=== PATIENT | female | born 1955 | race Caucasian/White ===

== ENCOUNTER 2023-04-10 12:06 | Outpatient (OUT) | payer OTHER, SELFPAY ==
[2023-04-10 12:54] LABS: Basophils Percent Auto 0.4 % (0.2-2.0); Eosinophils Absolute Auto 0.1 10^3/uL (0.0-0.7); Eosinophils Percent Auto 1.3 % (0.9-7.0); Hematocrit 42.3 % (36.0-48.0); Hemoglobin 13.9 g/dL (12.0-16.0); Immature Granulocytes Abs Auto 0.04 10^3/uL (0.00-0.03); Immature Granulocytes Pct Auto 0.4 % (0.0-0.5); Lymphocytes Absolute Auto 1.8 10^3/uL (1.2-3.8); Lymphocytes Percent Auto 19.5 % (20.5-60.0); Mean Corpuscular HGB Conc 32.9 g/dL (29.9-35.2); Mean Corpuscular Hemoglobin 27.7 pg (26.7-34.0); Mean Corpuscular Volume 84.3 fL (81.0-99.0); Mean Platelet Volume 8.5 fL (9.5-13.5); Monocytes Absolute Auto 0.5 10^3/uL (0.3-0.8); Monocytes Percent Auto 5.2 % (1.7-12.0); Neutrophils Absolute Auto 6.7 10^3/uL (1.4-6.5); Neutrophils Percent Auto 73.2 % (43.0-75.0); Platelet Count 353 10^3/uL (150-450); Red Blood Count 5.02 10^6/uL (4.20-5.40); Red Cell Distribution Width 14.6 % (11.0-15.0); White Blood Count 9.2 10^3/uL (4.0-11.0)
[2023-04-10 14:08] LABS: Alanine Aminotransferase 32 U/L (14-59); Albumin Globulin Ratio 0.8; Alkaline Phosphatase 193 U/L (46-116); Aspartate Amino Transferase 27 U/L (15-37); BUN Creatinine Ratio 23.9; Bilirubin Total 0.5 mg/dL (0.2-1.0); Calcium 9.7 mg/dL (8.5-10.1); Carbon Dioxide 29.7 mmol/L (21.0-32.0); Chloride 100 mmol/L (98-107); Chol HDL Ratio 2.5; Cholesterol 182 mg/dL (<=200); Estimated GFR (African America >60 (>=60); Estimated GFR (Non-African Ame >60 (>=60); Globulin 4.8 g/dL; Glucose 90 mg/dL (74-106); HDL Cholesterol 74 mg/dL (40-60); Potassium 3.7 mmol/L (3.5-5.1); Sodium 139 mmol/L (136-145); Thyroid Stimulating Hormone 0.423 uIU/mL (0.358-3.740); Total Protein 8.8 g/dL (6.4-8.2); Triglycerides 120 mg/dL (<=150)
== END 2023-04-10 12:07 | disposition home or self-care (01) ==
LOC: LAB 12:10
PROVIDERS: PCP Internal Medicine; Visit Provider Internal Medicine
DX: Z00.00 Encounter for general adult medical examination without abnormal findings (principal)
CPT/HCPCS: 36415; 80053; 80061; 82306; 84443; 85025

== ENCOUNTER 2023-08-21 11:12 | Outpatient (OUT) | payer OTHER, SELFPAY ==
--- NOTE | 2023-08-21 11:37 | XR_ITS ---
The [address] [address] Patient Name: ELBA CORONA MRN: [id number] date: 1955 Sex: F Assigned Patient Location: LAB Current Patient Location: Accession/Order Number: [id number] Exam Date: 08/21/2023 11:44 Report Date: 08/22/2023 19:15 At the request of: THELMA VIDAL Procedure: XR abdomen 1V Exam: Radiographs: XR abdomen 1V Reason for exam: Kidney Stone N20.0 Comparison: None XR/XR abdomen 1V IMPRESSION: Small calcific density projected over the region of the left renal upper pole may resent a calyceal renal stone versus cholelithiasis or ingested material. No radiographically evident ureteral or bladder calculi. No gas-filled dilated loops of small bowel or colon. No fecal impaction. Remainder unremarkable. Electronically authenticated by: YUDITH RIBEIRO Date: 08/22/2023 19:15
[2023-08-21 11:53] LABS: Anion Gap 14.1; Carbon Dioxide 26.4 mmol/L (21.0-32.0); Chloride 101 mmol/L (98-107); Potassium 3.5 mmol/L (3.5-5.1); Sodium 138 mmol/L (136-145)
== END 2023-08-21 11:13 | disposition home or self-care (01) ==
LOC: LAB 11:15
PROVIDERS: PCP Internal Medicine; Visit Provider Urology
DX: N20.0 Calculus of kidney (principal)
CPT/HCPCS: 36415; 74018; 80051

== ENCOUNTER 2023-09-05 12:05 | Outpatient (OUT) | payer OTHER, SELFPAY ==
--- NOTE | 2023-09-05 12:08 | US_ITS ---
The [address] [address] Patient Name: ELBA CORONA MRN: [id number] date: 1955 Sex: F Assigned Patient Location: US Current Patient Location: US Accession/Order Number: [id number] Exam Date: 09/05/2023 12:15 Report Date: 09/05/2023 13:38 At the request of: ELOINA DUMONT Procedure: US thyroid EXAM: US thyroid HISTORY: Thyroid Nodule COMPARISON: None. TECHNIQUE: Multiple sonographic images of the thyroid gland were obtained, supplemented with Doppler. FINDINGS: The right lobe measures 4.8 x 1.3 x 2.0 cm. Heterogeneous echoes are noted throughout. Very small cysts are scattered throughout. Along the inferior aspect there is a cyst measuring 0.4 x 0.5 x 0.3 cm. The left lobe measures 4.6 x 1.6 x 1.6 cm. Heterogeneous echoes are noted throughout. Very small cysts are noted. In the superior aspect there is a mixed nodule measuring 1.7 x 1.3 x 1.1 cm, with slightly irregular margins. In the inferior aspect there is a small cyst measuring 0.5 x 0.5 x 0.3 cm. The isthmus measures 2 mm in thickness. There is no evidence of a focal mass or abnormal fluid collection surrounding the gland. US/US thyroid IMPRESSION: The thyroid gland is not enlarged. Multiple very small cysts are scattered throughout each lobe. Additional identified cysts are seen in the inferior aspect of the right lobe and the inferior aspect of the left lobe, and these are considered TI RADS 2. The mixed nodule in the superior aspect of the left lobe is considered TI RAD 4. Biopsy is not recommended at this time. Direct comparison with a previous study may be helpful. A follow-up study in 12 months recommended. Electronically authenticated by: NEHEMIAS GUZMAN Date: 09/05/2023 13:38
== END 2023-09-05 12:06 | disposition home or self-care (01) ==
LOC: US 12:05
PROVIDERS: PCP Internal Medicine; Visit Provider Otolaryngology
DX: E04.1 Nontoxic single thyroid nodule (principal); E04.2 Nontoxic multinodular goiter
CPT/HCPCS: 76536

== ENCOUNTER 2023-09-19 14:40 | Outpatient (OUT) | payer OTHER, SELFPAY ==
--- NOTE | 2023-09-19 14:57 | XR_ITS ---
The [address] [address] Patient Name: ELBA CORONA MRN: [id number] date: 1955 Sex: F Assigned Patient Location: [facility] Current Patient Location: Accession/Order Number: [id number] Exam Date: 09/19/2023 15:20 Report Date: 09/20/2023 17:42 At the request of: LENNY BALDWIN Procedure: XR lumbar spine 6V w bending EXAM: XR lumbar spine 6V w bending HISTORY: lumbar spondylosis M47.816 COMPARISON: None. FINDINGS/IMPRESSION: 1. No acute fracture or dislocation 2. Mild degeneration at the L4-L5 and L5-S1 disc spaces. 3. Mild degeneration at T12-L1 and L1-L2. 4. Overlying bowel gas pattern is nonspecific and nonobstructive. 5. Anterolisthesis of L4 on L5 measuring 5 mm in flexion and 2 mm in extension. Electronically authenticated by: RUBENS COON Date: 09/20/2023 17:42
== END 2023-09-19 14:41 | disposition home or self-care (01) ==
LOC: RAD 14:43
PROVIDERS: PCP Internal Medicine; Visit Provider Internal Medicine
DX: M47.816 Spondylosis without myelopathy or radiculopathy, lumbar region (principal); M51.36 Other intervertebral disc degeneration, lumbar region
CPT/HCPCS: 72114

== ENCOUNTER 2023-10-03 14:09 | Outpatient (OUT) | payer OTHER, SELFPAY ==
--- NOTE | 2023-10-03 | CONS_ITS ---
CONSULTATION DATE: 10/03/2023 TO: Dr. Kingsley CHIEF COMPLAINT: Includes severe right lower back pain. HISTORY OF PRESENT ILLNESS: Review of systems, past medical/surgical history were obtained and documented on the health questionnaire and is available upon request. She is a 68-year-old female, reports having had a one year history of lower back pain in the above mentioned areas, most significant on the right side, described as a deep aching pain with a sharp component, rated 4-7/10 in severity, increased with activities such as standing, walking and performing transitioning maneuvers. She feels most comfortable in the semi-recumbent position. Denies any change in bowel and bladder habits or new sensorimotor changes in the lower extremities. CURRENT MEDICATION: Includes Tylenol p.r.n. She is unable to tolerate nonsteroidal agents secondary to GI distress. She is also on temazepam 50 mg daily p.r.n. EXAM: Her examination is notable for patient having no clinical radiculopathy or myelopathy involving the lower extremities. Patient had severe pain with lumbar facet joint loading maneuver on the right side at L4-5, L5-S1 with associated myofascial spasm of the lumbar paravertebral muscles as well, also worse on the right side. RECOMMENDATIONS: She has been in a structured home exercise program for at least the last 6-8 weeks time. Despite her independent exercise program and her inability to tolerate nonsteroidal agents secondary to GI distress, and she has failed conservative therapy with activity modification, we will proceed with a diagnostic right sided L4-5, L5-S1 medial branch block under fluoroscopic guidance. I have placed her on baclofen 10 mg pills, half a pill to one pill at h.s. and to start aquatic therapy. As part of providing excellent, safe, comprehensive care, the following was completed at our patient's visit: 1. A medication reconciliation and review to ensure accurate knowledge of current/active medications, including asking our patients to inform us about any [id number] medications or herbal remedies/nutritional supplements/alternative remedies. 2. A review to specifically ensure our patients have had annual screening for: elevated body mass index (BMI, see intake chart for exact total), tobacco use, screening for depression, and screening for unhealthy alcohol use. When screening is concerning, patients are provided with education and the specific recommendation to discuss the concerning health issue and treatment options with their primary care provider. ROSA
== END 2023-10-03 14:10 | disposition home or self-care (01) ==
LOC: PM 14:10
PROVIDERS: PCP Internal Medicine; Visit Provider Anesthesiology Pain Medicine
DX: M54.50 Low back pain, unspecified (principal); M62.830 Muscle spasm of back
CPT/HCPCS: G0463

== ENCOUNTER 2023-10-17 08:35 | Day surgery (SDC) | payer OTHER, SELFPAY ==
--- OUTSIDE RECORDS SUMMARY | 2023-10-17 08:38 | XMS_ITS | CCD ---
Author Name Unknown Address [address] [place] [address] Organization [facility] Care Team Providers Care Evidence Custodian Name Role Phone SEGUN KINGSLEY Primary Care Physician Segun Kingsley Unavailable VÁSQUEZ ., DR RENEE Attending Unavailable VÁSQUEZ ., DR RENEE Consulting Unavailable VÁSQUEZ ., DR RENEE Admitting Unavailable BALL, DR GALVEZ Primary Care Unavailable WEST, DR EVERETT Salazar Consulting Unavailable VÁSQUEZ ., DR RENEE Consulting Unavailable VÁSQUEZ ., DR RENEE Admitting Unavailable VÁSQUEZ ., DR RENEE Attending Unavailable BALL, DR GALVEZ Primary Care Unavailable TIMMIS, DR DUVALL Admitting Unavailable TIMMIS, DR DUVALL Attending Unavailable TIMMIS, DR DUVALL Consulting Unavailable BALL, DR GALVEZ Primary Care Unavailable AWAIS, DR EVERETT Salazar Consulting Unavailable ZieberJackson Consulting Unavailable SVITLANA, NOE Admitting Unavailable SVITLANA, NOE Attending Unavailable BALL, DR GALVEZ Primary Care Unavailable SVITLANA, NOE Consulting Unavailable BALL, DR GALVEZ Admitting Unavailable BALL, DR GALVEZ Attending Unavailable BALL, DR GALVEZ Consulting Unavailable BALL, DR GALVEZ Primary Care Unavailable AWAIS, DR EVERETT Salazar Consulting Unavailable SANCHO, DR GALVEZ Attending Unavailable BALL, DR GALVEZ Consulting Unavailable BALL, DR GALVEZ Primary Care Unavailable BALL, DR GALVEZ Admitting Unavailable BALL, DR GALVEZ Attending Unavailable BALL, DR GALVEZ Consulting Unavailable BALL, DR GALVEZ Primary Care Unavailable BALL, DR GALVEZ Admitting Unavailable VÁSQUEZ ., DR RENEE Consulting Unavailable VÁSQUEZ ., DR RENEE Admitting Unavailable VÁSQUEZ ., DR RENEE Attending Unavailable BALL, DR GALVEZ Primary Care Unavailable BALL, DR GALVEZ Attending Unavailable BALL, DR GALVEZ Consulting Unavailable BALL, DR GALVEZ Primary Care Unavailable BALL, DR GALVEZ Admitting Unavailable BALL, DR GALVEZ Attending Unavailable BALL, DR GALVEZ Consulting Unavailable BALL, DR GALVEZ Primary Care Unavailable SANCHO, DR GALVEZ Admitting Unavailable BALL, DR GALVEZ Primary Care Unavailable PERNELL ., DEEPTI Admitting Unavailable DEEPTI CHAVEZ Attending Unavailable DR EVERETT ERNANDEZ V Consulting Unavailable WILFRIDO .STEPHAN Consulting Unavailable Enrique VÁSQUEZ Attending Unavailable Enrique VÁSQUEZ Attending Unavailable ELOINA DUMONT Attending Unavailable SEGUN KINGSLEY Referring Unavailable Allergies Allergy Classification Reported Allergen(s) Allergy Type Date of Onset Reaction(s) Facility (2 sources) patient allergy list reviewed by nurse or physicia Propensity to adverse reactions Comment:[facility] [employer] Other (1 source) No Known Medication Allergies; Translations: [No Known Medication Allergies] Propensity to adverse reactions (disorder) [facility] Medications Current Medications Medication Drug Class(es) Dates Sig (Normalized) Sig (Original) acetaminophen 500 mg oral tablet (1 source) Start: 05-05-2021 take 500 mg by mouth twice daily Tylenol 500 mg, Oral, BID Start Date: 05/05/21 Status: Ordered [id number] actuat albuterol 0.09 mg/actuat metered dose inhaler (12 sources) beta2-Adrenergic Agonist Start: 10-26-2019 take 2 puff(s) by inhalation every four hours as needed Start: 10-26-2019 take 2 puff(s) by in halation every four hours as needed Albuterol Sulfate HFA 108 (90 Base) MCG/ACT 2 puffs as needed Inhalation every 4 hrs Oct, Not-Taking Start: 10-26-2019 Start: 10-26-2019 take 2 puff(s) by in halation every four hours as needed Albuterol Sulfate HFA 108 (90 Base) MCG/ACT 2 puffs as needed Inhalation every 4 hrs Oct, Not-Taking amLODIPine 5 mg oral tablet (13 sources) Dihydropyridine Calcium Channel Emmanuel Start: 05-05-2021 take 1 tablet by mouth once daily amLODIPine 5 mg Tab 5 mg = 1 tab(s), Oral, Daily Start Date: 05/05/21 Status: Ordered take 1 tablet by mouth once shantelle y atorvastatin 40 mg oral tablet (13 sources) HMG-CoA Reductase Inhibitor Start: 05-05-2021 take 1 tablet by mouth once daily atorvastatin 40 mg Tab 40 mg = 1 tab(s), Oral, Daily Start Date: 05/05/21 Status: Ordered azelastine hydrochloride 0.137 mg/actuat metered dose nasal spray (12 sources) Histamine-1 Receptor Antagonist take 1 puff(s) nasal route twice daily take 1 puff(s) nasal route twice daily Azelastine HCl 137 MCG/SPRAY 1 puff in each nostril Nasally Twice a day Active calcium carbonate 1500 mg oral tablet (1 source) Start: 05-05-2021 take 1 tablet by mouth twice daily calcium (as carbonate) 600 mg oral tablet 600 mg = 1 tab(s), Oral, BID Start Date: 05/05/21 Status: Ordered FLUoxetine 40 mg oral capsule (13 sources) Serotonin Reuptake Inhibitor Start: 05-05-2021 take 1 capsule by mouth once daily FLUoxetine 40 mg Cap 40 mg = 1 cap(s), Oral, Daily Start Date: 05/05/21 Status: Ordered fluticasone propionate 0.05 mg/actuat metered dose nasal spray (12 sources) Corticosteroid Start: 10-26-2019 take 1 spray(s) nasal route once daily Start: 10-26-2019 take 1 spray(s) nasa l route once daily Fluticasone Propionate 50 MCG/ACT 1 spray in each nostril Nasally Once a day for 21 days Oct, Not-Taking Start: 10-26-2019 hydroCHLOROthiazide 25 mg oral tablet (13 sources) Thiazide Diuretic Start: 06-08-2022 take 1 tablet by mouth once daily hydrochlorothiazide 25 mg Tab 25 mg = 1 tab(s), Oral, Daily, # 90 tab(s), Refills(s) 3, Pharmacy: [id number], 163, cm, 10/18/21 11:50:00 EST, Height/Length Dosing, 70, kg, 10/18/21 11:50:00 EST, Weight Dosing Start Date: 06/08/22 Status: Ordered Lisinopril (12 sources) Angiotensin Converting Enzyme Inhibitor Lisinopril Not-T aking/PRN Lisinopril Not-T aking methylPREDNISolone 4 mg oral tablet (12 sources) Corticosteroid Start: 10-26-2019 Start: 10-26-2019 omeprazole 40 mg delayed release oral capsule (13 sources) Proton Pump Inhibitor Start: 10-18-2021 take 1 mg by mouth once daily omeprazole 40 mg Cap-DR mg cap(s), Oral, Daily, Refills(s) 0 Start Date: 10/18/21 Status: Ordered paxlovid (300/100) 20 x 150 mg & 10 x 100mg tablet therapy pack (2 sources) Start: 10-10-2023 take 3 tablets by mouth every twelve hours Paxlovid (300/100) 20 x 150 MG & 10 x 100MG 3 tablets Orally Twice a day for 5 days Sep, Active Start: 07-19-2023 Paxlovid (300/ 100) 20 x 150 MG & 10 x 100MG as directed Orally bid for 5 days Jun, Active Potassium Bicarb & Chloride (12 sources) Potassium Bicarb & Chloride 20 MEQ packet daily Active temazepam 15 mg oral capsule (13 sources) Benzodiazepine Start: 06-01-2023 take 1 capsule by mo [facility] at bedtime as needed Start: 12-01-2022 Start: 05-05-2021 take 1 capsule by mo [facility] once daily at bedtime temazepam 15 mg Cap 15 mg = 1 cap(s), Oral, Once a day (at bedtime) Start Date: 05/05/21 Status: Ordered tiZANidine (12 sources) Central alpha-2 Adrenergic Agonist tiZANidine HCl N ot-Taking/PRN tiZANidine HCl N ot-Taking traMADol (12 sources) Opioid Agonist traMADol HCl Not -Taking/PRN traMADol HCl Not -Taking triamcinolone acetonide 0.25 mg/ml topical cream (11 sources) Corticosteroid Triamcinolone Ac etonide 0.025 % 1 application Externally twice daily as needed for 14 days Active Vitamin D3 (1 source) Start: 05-05-2021 Vitamin D3 1,0 00 International_Unit, Oral, Daily Start Date: 05/05/21 Status: Ordered {20 (nirmatrelvir 150 MG Oral Tablet) / 10 (ritonavir 100 MG Oral Tablet) } Pack [Paxlovid 5-Day] (1 source) Start: 07-19-2023 Paxlovid (300/ 100) 20 x 150 MG & 10 x 100MG as directed Orally bid for 5 days Jun, Active Completed/Discontinued Medications Medication Drug Class(es) Dates Sig (Normalized) Sig (Original) potassium bicarbonate 25 meq effervescent oral tablet (1 source) Start: 10-18-2021 take 1 tablet by mouth twice daily Effer-K 25 mEq oral tablet, effervescent 25 mEq = 1 tab(s), Oral, BID, # 60 tab(s), Refills(s) 8, Pharmacy: [facility], 163, cm, 10/18/21 11:50:00 EST, Height/Length Dosing, 70, kg, 10/18/21 11:50:00 EST, Weight Dosing Start Date: 10/18/21 Status: Ordered Problems Active Problems Problem Classification Problem Date Documented Da te Episodic/Chronic Abdominal pain (20 sources) Flank pain; Translations: [Epigastric pain] Onset: 03-04-2015 05-05-2021 Episodic Acute bronchitis (14 sources) Acute bronchitis; Translations: [Acute bronchitis, unspecified] Onset: 01-27-2014 Episodic Anxiety disorders (20 sources) Generalized anxiety disorder; Translations: [Generalized anxiety disorder] Onset: 02-28-2022 Chronic Calculus of urinary tract (20 sources) Kidney stone; Translations: [Calculus of kidney] Onset: 07-13-2022 Episodic Cardiac dysrhythmias (13 sources) Tachycardia; Translations: [Tachycardia, unspecified] Onset: 01-31-2022 Episodic Disorders of lipid metabolism (20 sources) Hyperlipidemia; Translations: [Hypercholesterolemi a] 05-05-2021 Chronic Diverticulosis and diverticulitis (9 sources) Diverticulosis of sigmoid colon; Translations: [Diverticulosis of large intestine without perforation or abscess without bleeding] Chronic E Codes: Natural/environment (1 source) Bitten or stung by nonvenomous insect and other nonvenomous arthropods, initial encounter Episodic Esophageal disorders (20 sources) Gastro-esophageal reflux disease with esophagitis; Translations: [Gastroesophageal reflux 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] Onset: 02-25-2014 Chronic Essential hypertension (20 sources) Hypertensive disorder; Translations: [Essential hypertension] Onset: 06-22-2022 05-05-2021 Chronic Fluid and electrolyte disorders (20 sources) Hypokalemia; Translations: [Hypokalemia] Onset: 02-02-2022 Episodic Immunizations and screening for infectious disease (7 sources) Vaccination given; Translations: [Encounter for immunization] Episodic Inflammation; infection of eye (except that caused by tuberculosis or sexually transmitteddisease) (9 sources) Acute atopic conjunctivitis; Translations: [Acute atopic conjunctivitis, bilateral] Episodic Malaise and fatigue (20 sources) Fatigue; Translations: [Other fatigue] Onset: 01-27-2014 Episodic Miscellaneous mental health disorders (2 sources) Globus sensation; 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] Chronic Mood disorders (20 sources) Single episode of major depression in full remission; Translations: [Major depressive disorder, single episode, in full remission] Onset: 09-25-1959 Chronic Osteoarthritis (1 source) Arthritis 05-05-2021 Chronic Other circulatory disease (7 sources) Cardiovascular symptoms; Translations: [Other specified symptoms and signs involving the circulatory and respiratory systems] Episodic Other congenital anomalies (7 sources) Congenital spondylolysis of lumbosacral region; Translations: [Congenital spondylolysis, lumbosacral region] Onset: 08-22-2017 Chronic Other diseases of kidney and ureters (1 source) Hydronephrosis due to ureteral obstruction 05-05-2021 Episodic Other ear and sense organ disorders (7 sources) Conductive hearing loss, bilateral; Translations: [Conductive hearing loss, bilateral] Onset: 02-13-2015 Chronic Other ear and sense organ disorders (14 sources) Impacted cerumen; Translations: [Impacted cerumen, bilateral] Onset: 02-06-2015 Episodic Other gastrointestinal disorders (19 sources) Irritable bowel syndrome characterized by constipation; Translations: [Irritable bowel syndrome with constipation] Chronic Other gastrointestinal disorders (7 sources) Irritable bowel syndrome with diarrhea; Translations: [Irritable bowel syndrome with diarrhea] Onset: 09-10-2018 Chronic Other gastrointestinal disorders (7 sources) Irritable bowel syndrome; Translations: [Irritable bowel syndrome] Chronic Other injuries and conditions due to external causes (7 sources) History of fall; Translations: [History of falling] Episodic Other liver diseases (12 sources) Liver mass; Translations: [Hepatomegaly, not elsewhere classified] Episodic Other liver diseases (7 sources) Large liver; Translations: [Hepatomegaly, not elsewhere classified] Episodic Other lower respiratory disease (7 sources) Chronic cough; Translations: [Chronic cough] Episodic Other nutritional; endocrine; and metabolic disorders (19 sources) Hypercalcemia; Translations: [Hypercalcemia] Chronic Other nutritional; endocrine; and metabolic disorders (1 source) Hypercalcemia; Translations: [HYPERCALCEMIA] Onset: 02-02-2022 Chronic Other screening for suspected conditions (not mental disorders or infectious disease) (7 sources) Imaging of genitourinary system abnormal; Translations: [Nonspecific (abnormal) findings on radiological and other examination of genitourinary organs] Onset: 10-22-2009 Chronic Other upper respiratory disease (7 sources) Vasomotor rhinitis; Translations: [Vasomotor rhinitis] Chronic Other upper respiratory disease (7 sources) Seasonal allergic rhinitis; Translations: [Other seasonal allergic rhinitis] Onset: 01-30-2015 Chronic Other upper respiratory disease (7 sources) Allergic rhinitis due to pollen; Translations: [Allergic rhinitis due to pollen] Chronic Other upper respiratory infections (7 sources) Chronic sinusitis; Translations: [Chronic sinusitis, unspecified] Chronic Other upper respiratory infections (20 sources) Acute pharyngitis; Translations: [Acute pharyngitis due to other specified organisms] Onset: 01-22-2014 Episodic Residual codes; unclassified (12 sources) Insomnia; Translations: [Insomnia, unspecified] Episodic Residual codes; unclassified (7 sources) Postmenopausal state; Translations: [Asymptomatic menopausal state] Episodic Spondylosis; intervertebral disc disorders; other back problems (20 sources) Spondylitis; 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, lumbar region] Onset: 02-28-2022 Chronic Spondylosis; intervertebral disc disorders; other back problems (20 sources) Sciatica; Translations: [Lumbago with sciatica, left side] Onset: 06-12-2013 Episodic Superficial injury; contusion (1 source) Insect bite (nonvenomous) of unspecified part of head, initial encounter Episodic Syncope (10 sources) Syncope and collapse; Translations: [Syncope and collapse] Onset: 06-22-2022 Episodic Thyroid disorders (20 sources) Cyst of thyroid; Translations: [Nontoxic single thyroid nodule] Onset: 08-26-2022 Chronic Unclassified (3 sources) CONTACT W/AND (SUSP) EXPOS COVID-19; Translations: [CONTACT W/AND (SUSP) EXPOS COVID-19] Onset: 03-15-2022 Unclassified (7 sources) Exposure to acute respiratory syndrome coronavirus 2; Translations: [Contact with and (suspected) exposure to COVID-19] Past or Other Problems Problem Classification Problem Date Documented Date Episodic/Chronic Allergic reactions (7 sources) Contact dermatitis; Translations: [Contact dermatitis and other eczema, due to unspecified cause] Onset: 5 Episodic Bacterial infection; unspecified site (14 sources) Methicillin resistant Staphylococcus aureus infection; Translations: [Methicillin resistant Staphylococcus aureus infection, unspecified site] Onset: 5 Episodic Esophageal disorders (3 sources) Esophageal disorders Gastritis and duodenitis (7 sources) Acute gastritis; Translations: [Acute gastritis without mention of hemorrhage] Onset: 4 Episodic Genitourinary symptoms and ill-defined conditions (15 sources) Microscopic hematuria; Translations: [Dysuria] Onset: 6 05-05-2021 Episodic Headache; including migraine (7 sources) Headache; Translations: [Headache, unspecified] Onset: 5 Episodic Nausea and vomiting (7 sources) Nausea; Translations: [Nausea] Onset: 5 Episodic Nonspecific chest pain (18 sources) Chest pain, unspecified; Translations: [Chest pain] Onset: 6 Episodic Other aftercare (1 source) Other keno terminal operator (current) drug therapy; Translations: [OTH JAIL CURRENT DRUG THERAPY] Onset: 2 Episodic Other aftercare (7 sources) Surgical follow-up; Translations: [Follow-up examination, following unspecified surgery] Onset: 0 Episodic Other connective tissue disease (7 sources) Muscle pain; Translations: [Unspecified myalgia and myositis] Onset: 5 Episodic Other disorders of stomach and duodenum (7 sources) Disorder of function of stomach; Translations: [Dyspepsia and other specified disorders of function of stomach] Onset: 4 Episodic Other gastrointestinal disorders (7 sources) Heartburn; Translations: [Heartburn] Onset: 5 Episodic Other gastrointestinal disorders (7 sources) Diarrhea; Translations: [Diarrhea] Onset: 6 Episodic Other gastrointestinal disorders (7 sources) Pharyngeal dysphagia; Translations: [Dysphagia, pharyngoesophageal phase] Onset: 7 Episodic Other gastrointestinal disorders (7 sources) Flatulence, eructation and gas pain; Translations: [Abdominal distension (gaseous)] Onset: 8 Episodic Other lower respiratory disease (7 sources) Cough; Translations: [Cough, unspecified] Onset: 4 Episodic Other nutritional; endocrine; and metabolic disorders (9 sources) Loss of appetite; Translations: [Anorexia] Onset: 7 Episodic Other nutritional; endocrine; and metabolic disorders (7 sources) Overweight; Translations: [Overweight] Onset: 2 Episodic Other nutritional; endocrine; and metabolic disorders (14 sources) Body mass index 25-29 - overweight; Translations: [Body mass index 27.0-27.9, adult] Onset: 7 Episodic Other nutritional; endocrine; and metabolic disorders (7 sources) Abnormal weight loss; Translations: [Abnormal weight loss] Onset: 8 Episodic Other screening for suspected conditions (not mental disorders or infectious disease) (19 sources) Encounter for screening mammogram for malignant neoplasm of breast; Translations: [Encounter for screening for diseases of the blood and blood-forming organs and certain disorders involving the immune mechanism] Onset: 5 Resolved: 1 Episodic Other skin disorders (7 sources) Inflamed seborrheic keratosis; Translations: [Inflamed seborrheic keratosis] Onset: 4 Episodic Other skin disorders (7 sources) Sebaceous cyst; Translations: [Sebaceous cyst] Onset: 5 Episodic Other skin disorders (7 sources) Generalized hyperhidrosis; Translations: [Generalized hyperhidrosis] Onset: 6 Episodic Otitis media and related conditions (14 sources) Otitis media; Translations: [Unspecified otitis media] Onset: 5 Episodic Ovarian cyst (7 sources) Cyst of ovary; Translations: [Other and unspecified ovarian cyst] Onset: 0 Resolved: 1 Episodic Residual codes; unclassified (1 source) Localized edema; Translations: [LOCALIZED EDEMA] Onset: 2 Episodic Residual codes; unclassified (7 sources) C/O - a back symptom; Translations: [Other symptoms referable to back] Onset: 7 Episodic Residual codes; unclassified (7 sources) Requires influenza virus vaccination; Translations: [Need for prophylactic vaccination and inoculation, Influenza] Onset: 8 Episodic Residual codes; unclassified (7 sources) Flushing; Translations: [Flushing] Onset: 4 Episodic Skin and subcutaneous tissue infections (7 sources) Carbuncle of neck; Translations: [Carbuncle of neck] Resolved: 1 Episodic Sprains and strains (7 sources) Low back strain; Translations: [Strain of muscle, fascia and tendon of lower back, initial encounter] Onset: 8 Episodic Unclassified (1 source) Vaccine counseling Z71.85 Unclassified (1 source) CONTACT W/AND (SUSP) EXPOS COVID-19; Translations: [CONTACT W/AND (SUSP) EXPOS COVID-19] Onset: 2 Unclassified (2 sources) Acute bilateral low back pain without sciatica M54.50 Unclassified (4 sources) Acute bilateral low back pain without sciatica; Translations: [Acute bilateral low back pain without sciatica] Urinary tract infections (7 sources) Acute cystitis; Translations: [Acute cystitis without hematuria] Onset: 7 Episodic Viral infection (2 sources) COVID-19 Results Test Name Value Interpretation Reference Range [facility] it Physician Orderon 09-12-2023 Physician Order [id number] .00TIFF [facility] RAD - MISCon 09-10-2023 RAD - MISC [id number] .00TIFF [facility] Lab Reportson 08-22-2023 Lab Reports [id number]. 00TIFF [facility] Reminderson 08-22-2023 Reminders - From: Selma Allen To: ROSE Ambrocio PA - Results; Sent: 02/13/2023 15:16:16 EDT Show up: 08/16/2023 14:15:00 EST Subject: Electrolye panel Due Date/Time: 08/16/2023 14:15:00 EST Pt is to get an electrolyte panel in 6 mos. Please check for these results. If not completed, she might need a reminder call. I gave her a printed order and wrote a reminder at the top. No results in chart or clinisync. Pt states she is going to [facility] today to have lytes drawn. From: NOE SHANE PA-C ([facility] - Pending Results) To: [facility] - Clinical; Sent: 08/22/2023 10:52:27 EST Show up: 08/22/2023 10:51:00 EST Subject: RE: Electrolye panel advise pt electrolytes look good. potassium is slightly lower than earlier this year but still within normal range. would recommend she increase po intake of potassium-rich foods. pt. notified about lab work Normal [facility] Patient Educationon 02-14-20 Patient Education Nephrology Dietary Guidelines to Help Prevent Kidney Stones Kidney stones are deposits of minerals and salts that form inside your kidneys. Your risk of developing kidney stones may be greater depending on your diet, your lifestyle, the medicines you take, and whether you have certain medical conditions. Most people can lower their chances of developing kidney stones by following the instructions below. Your dietitian may give you more specific instructions depending on your overall health and the type of kidney stones you tend to develop. What are tips for following this plan? Reading food labels ? Choose foods with no salt added or low-salt labels. Limit your salt (sodium) intake to less than 1,500 mg a day. ? Choose foods with calcium for each meal and snack. Try to eat about 300 mg of calcium at each meal. Foods that contain 200?500 mg of calcium a serving include: ? 8 oz (237 mL) of milk, calcium-fortifiednon- dairy milk, and calcium-fortifiedfrui t juice. Calcium-fortified means that calcium has been added to these drinks. ? 8 oz (237 mL) of kefir, yogurt, and soy yogurt. ? 4 oz (114 g) of tofu. ? 1 oz (28 g) of cheese. ? 1 cup (150 g) of dried figs. ? 1 cup (91 g) of cooked broccoli. ? One 3 oz (85 g) can of sardines or mackerel. Most people need 1,000?1,500 mg of calcium a day. Talk to your dietitian about how much calcium is recommended for you. Shopping ? Buy plenty of fresh fruits and vegetables. Most people do not need to avoid fruits and vegetables, even if these foods contain nutrients that may contribute to kidney stones. ? When shopping for convenience foods, choose: ? Whole pieces of fruit. ? Pre-made salads with dressing on the side. ? Low-fat fruit and yogurt smoothies. ? Avoid buying frozen meals or prepared deli foods. These can be high in sodium. ? Look for foods with live cultures, such as yogurt and kefir. ? Choose high-fiber grains, such as whole-wheat breads, oat bran, and wheat cereals. Cooking ? Do not add salt to food when cooking. Place a salt shaker on the table and allow each person to add his or her own salt to taste. ? Use vegetable protein, such as beans, textured vegetable protein (TVP), or tofu, instead of meat in pasta, casseroles, and soups. Meal planning ? Eat less salt, if told by your dietitian. To do this: ? Avoid eating processed or pre-made food. ? Avoid eating fast food. ? Eat less animal protein, including cheese, meat, poultry, or fish, if told by your dietitian. To do this: ? Limit the number of times you have meat, poultry, fish, or cheese each week. Eat a diet free of meat at least 2 days a week. ? Eat only one serving each day of meat, poultry, fish, or seafood. ? When you prepare animal protein, cut pieces into small portion sizes. For most meat and fish, one serving is about the size of the palm of your hand. ? Eat at least five servings of fresh fruits and vegetables each day. To do this: ? Keep fruits and vegetables on hand for snacks. ? Eat one piece of fruit or a handful of berries with breakfast. ? Have a salad and fruit at lunch. ? Have two kinds of vegetables at dinner. ? Limit foods that are high in a substance called oxalate. These include: ? Spinach (cooked), rhubarb, beets, sweet potatoes, and Georgian chard. ? Peanuts. ? Potato chips, filipino fries, and baked potatoes with skin on. ? Nuts and nut products. ? Chocolate. ? If you regularly take a diuretic medicine, make sure to eat at least 1 or 2 servings of fruits or vegetables that are high in potassium each day. These include: ? Avocado. ? Banana. ? Webb, prune, carrot, or tomato juice. ? Baked potato. ? Cabbage. ? Beans and split peas. Lifestyle ? Drink enough fluid to keep your urine pale yellow. This is the most important thing you can do. Spread your fluid intake throughout the day. ? If you drink alcohol: ? Limit how much you use to: ? 0?1 drink a day for women who are not . ? 0?2 drinks a day for men. ? Be aware of how much alcohol is in your drink. In the [place] one drink equals one 12 oz bottle of beer (355 mL), one 5 oz glass of wine (148 mL), or one 1? oz glass of hard liquor (44 mL). ? Lose weight if told by your health care provider. Work with your dietitian to find an eating plan and weight loss strategies that work best for you. General information ? Talk to your health care provider and dietitian about taking daily supplements. You may be told the following depending on your health and the cause of your kidney stones: ? Not to take supplements with vitamin C. ? To take a calcium supplement. ? To take a daily probiotic supplement. ? To take other supplements such as magnesium, fish oil, or vitamin B6. ? Take hrof-jae-ingiwyt and prescription medicines only as told by your health care provider. These include supplements. What foods should I limit? Limit your in (more content not included)... Normal [facility] Urology Office/Clinic Noteon 02-13-2023 Urology Office/Clinic Note Chief Complaint 6 month f/u with KUB HPI Staff 6m w/electrolytes & KUB (Last seen in office by ROE) DX: Kidney Stone *HCTZ 12.5 mg QD (decreased from 25mg at last encounter) & Effer K 25meq BID therapy. Electrolytes drawn 10/27/22 KUB done 01/20/23. Dysuria: no Incomplete bladder emptying: no Hematuria: no Frequency: no Urgency: no Nocturia: 2-3 depending on amount she has been drinking Stream: no straining or intermittency Leaking: no Post void dripping: no Wearing pads/ Depends: no Urge incontinence: no Stress incontinence: no Incontinence without Sensory Awareness: no Abdominal pain: no Flank pain: no Sexual complaints: no History of Present Illness Tests reviewed: reviewed UA, KUB, labs. I have reviewed the previous health record information and history for this patient from Dr. Vásquez. I have reviewed and verified the staff HPI to be accurate for this encounter. There have been no associated fever, chills, flank pain, or blood in the urine. Denies any urinary infections since last encounter. Review of Systems PHQ Score Initial Depression Screen Score: 0 ROS - Provider Constitutional: denies weight loss, denies hot flashes. Eyes: denies eye problems. Gastrointestinal: denies nausea, denies vomiting. Cardiovascular: denies chest pain or angina. Integumentary: no dryness Musculoskeletal: denies musculoskeletal symptoms. ENMT: denies otolaryngeal symptoms. Respiratory: no shortness of breath. Heme/Lymph: denies easy bleeding tendency, denies easy bruising tendency. Psychiatric: no confusion, no anxiety. Genitourinary: See HPI. Physical Exam Vitals & Measurements HR: 75(Peripheral) RR: 16 BP: 135/89 HT: 64 in HT: 163 cm WT: 70 kg WT: 154 lb BMI: 26.35 General Appearance: alert , no acute distress, well nourished, well developed female. Genitourinary: bladder nonpalpable, no flank pain. Assessment/Plan 1. Kidney stones (N20.0: Calculus of kidney) Hx of ESWL procedures. Metabolic workup 08/11/21 - Volume 2,600 cc. U 24hr Ca 340 H. Citric acid 335 L. KUB 10/16/21 - Neg for stones. KUB 11/18/21 - Neg for stones. KUB 01/20/23 - Bilateral punctate nephrolithiasis. UA today shows small leuks. Reviewed labs and XR with pt. Drinks about 2-3 glasses per day. Recommended pt to increase fluid intake to ten to twelve 16 oz bottles a day, preferably water, clear pop, and sugar free lemonade. Tiny stones present in kidneys that do not require tx as long as pt cont taking Effer-K. Follow up 1 yr KUB or sooner if needed. Pt understands and agrees with plan. -Increase fluid intake. 2. Hypercalciuria (R82.994: Hypercalciuria) Metabolic workup 08/11/21 - Volume 2,600 cc. U 24hr Ca 340 H. Citric acid 335 L. 03/09/22 - K 4.0. Electrolyte panel 10/27/22 - K 3.9 wnl. Decreased HCTZ from 25 mg qd to 12.5 mg at prior OV. Pt has been cutting her 25 mg pills in half. Cont wo changes. -6 mos and one year electrolyte panel. 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 U 24hr Ca 340 H. Citric acid 335 L. Also taking Effer-K 25 mEq bid. Cont wo changes. Follow-up With When Contact Information MARCY GRESHAM, Enrique Layne, [facility] [address], [place] [id number]- Additional Instructions: 1 yr KUB with OV, 6 mos electrolyte panel no OV Patient Education Dietary Guidelines to Help Prevent Kidney Stones I, Selma Allen, personally scribed for Dr. Vásquez on 02/13/2023 15:11:36. . Documentation recorded by the scribe, Selma Allen, accurately reflects the services(s) I performed and decisions made by me. Authenticated by Dr. Vásquez on 02/13/2023 15:14:11. Problem List/Past Medical History Ongoing Arthritis Flank pain Hypercalciuria Hyperlipidemia Hypertension Hypocitraturia Kidney stones Microscopic hematuria Ureteral stone with hydronephrosis Historical No qualifying data Procedure/Surgical History ESWL of kidney (06/03/2021), Ureteroscopy (05/30/2021), ESWL of kidney (05/27/2021), ESWL of kidney (05/20/2021), ESWL of kidney (05/06/2021), Colonoscopy, Hysterectomy. Medications amLODIPine 5 mg Tab, 5 mg= 1 tab(s), Oral, Daily atorvastatin 40 mg Tab, 40 mg= 1 tab(s), Oral, Daily calcium (as carbonate) 600 mg oral tablet, 600 mg= 1 tab(s), Oral, BID Effer-K 25 mEq oral tablet, effervescent, 25 mEq= 1 tab(s), Oral, BID, 8 refills FLUoxetine 40 mg Cap, 40 mg= 1 cap(s), Oral, Daily hydrochlorothiazide 25 mg Tab, 25 mg= 1 tab(s), Oral, Daily, 3 refills omeprazole 40 mg Cap-DR, Oral, Daily temazepam 15 mg Cap, 15 mg= 1 cap(s), Oral, Once a day (at bedtime) Tylenol, 500 mg, Oral, BID Vitamin D3, 1000 International_Unit, Oral, Daily Allergies No Known Medication Allergies Social History Tobacco Never (less than 100 in lifetime) Tobacco Use:. Never Smokeless Tobacco Use:., 07/13/2022 Family History Arthritis: Mother (more content not included)... [facility] Comment on above: Result Comment: Elec tronically Signed By: Enrique VÁSQUEZ MD\.br\Date and Time Signed: 02/13/23 15:14 EDT\.br\Electronically Co-Signed By: Selma Allen\.br\Date and Time Co-Signed: 02/13/23 15:12 EDT RAD - MISCon 01-23-2023 RAD - MISC [id number] .00CD:127 Normal [facility] XR KUB 1 VIEWon 01-20-2023 XR KUB 1 VIEW EXAMINATION: XR KUB 1 VIEW HISTORY: Kidney stone COMPARISON: No relevant comparison available. FINDINGS: KIDNEY/URETER - RIGHT: punctate nephrolithiasis. KIDNEY/URETER - LEFT: punctate nephrolithiasis PELVIS: No visible ureteral calcifications. Any visible calcifications favor phleboliths. BOWEL: No abnormal dilation or deviation. BONES: No acute abnormality. OTHER: Negative. No abnormal gaseous collections. IMPRESSION: Bilateral punctate nephrolithiasis Electronically authenticated by: EVERETT ERNANDEZ Date: 2023-01-20 11:11 Normal [facility] Reportson 10-31-2022 Lab Reports [id number] .[id number]:127 Normal [facility] Physician Orderon 10-28-2022 Physician Order [id number] .[id number]:127 Normal [facility] ELECTROLYTESon 10-27-2022 Anion gap [Moles/Vol] 12.4 mmol/L Normal [facility] Comment on above: Performed By: #### P THINT #### [facility] [address] [address] [address] Alejandrina Feng Chloride [Moles/Vol] 102 mmol/L Normal 98-107 [facility] Comment on above: Performed By: #### P THINT #### [facility] [address] [address] [address] Alejandrina Feng CO2 [Moles/Vol] 28.5 mmol/L Normal 21.0-32.0 [facility] Comment on above: Performed By: #### P THINT #### [facility] [address] [address] [address] Alejandrina Feng Potassium [Moles/Vol] 3.9 mmol/L Normal 3.5-5.1 [facility] Comment on above: Performed By: #### P THINT #### [facility] [address] [address] [address] Alejandrina Feng Sodium [Moles/Vol] 139 mmol/L Normal 136-145 [facility] Comment on above: Performed By: #### P THINT #### [facility] [address] [place] [address] Dr. Alejandrina Feng US THYROIDon 08-29-2022 US THYROID EXAMINATION: US THYROID HISTORY: Non-toxic uninodular goiter COMPARISON: 09/06/2021 TECHNIQUE: Sonographic images of the thyroid gland were obtained. FINDINGS: The right thyroid lobe measures 4.3 x 1.6 x 1.5 cm. Multiple punctate nodules the largest measures 5 mm. Thyroid isthmus measures 2.4 mm no focal nodule The left thyroid lobe measures 4.9 x 1.5 x 1.7 cm. Single nodule over a centimeter Nodule 1: Superior. 1.6 x 1.3 x 0.9 cm. Mixed solid and cystic, hypoechoic, wide, smooth margins, no calcifications. TR 3 IMPRESSION: 1.6 cm left thyroid stable. TR 3 nodule TI-RADS: The [employer] TI-RADS committee's white paper recommendations for thyroid lesions classified as TR3 (mildly suspicious) are listed below: > 1.5 cm. Follow-up ultrasound in 1, 3, and 5 years. > 2.5 cm. FNA. J. Am Jose Radiol 2017;14:587-595. Electronically authenticated by: EVERETT ERNANDEZ Date: 2022-08-29 07:19 Normal [facility] XR KUB 1 VIEWon 07-14-2022 XR KUB 1 VIEW EXAMINATION: XR KUB 1 VIEW HISTORY: Kidney stone follow-up COMPARISON: XR KUB 11/18/2021 FINDINGS: KIDNEY/URETER - RIGHT: Small stone versus bowel content projecting over superior pole. KIDNEY/URETER - LEFT: No visible renal or ureteral calcifications. PELVIS: No visible ureteral calcifications. Any visible calcifications favor phleboliths. BOWEL: No abnormal dilation or deviation. BONES: No acute abnormality. OTHER: Negative. No abnormal gaseous collections. IMPRESSION: 1. Suspect right nephrolithiasis. Electronically authenticated by: JACKSON BACH Date: 2022-07-14 06:26 Normal [facility] ELECTROLYTESon 07-13-2022 Anion gap [Moles/Vol] 9.0 mmol/L Normal [facility] Comment on above: Performed By: #### E LEC #### [facility] [address] [address] [address] Alejandrina Feng Chloride [Moles/Vol] 101 mmol/L Normal 98-107 [facility] Comment on above: Performed By: #### E LEC #### [facility] [address] [address] [address] Alejandrina Feng CO2 [Moles/Vol] 27.5 mmol/L Normal 21.0-32.0 [facility] Comment on above: Performed By: #### E LEC #### [facility] [address] [address] [address] Alejandrina Feng Potassium [Moles/Vol] 3.5 mmol/L Normal 3.5-5.1 [facility] Comment on above: Performed By: #### E LEC #### [facility] [address] [address] [address] Alejandrina Feng Sodium [Moles/Vol] 134 mmol/L Critically low 136-145 [facility] Comment on above: Performed By: #### E LEC #### [facility] [address] [address] [address] Alejandrina Feng MG MAMM SCREEN 3D TUSHAR CADon 07-06-2022 MG MAMM SCREEN 3D TUSHAR CAD Patient: MIK CORONA Exam Date: 07/06/2022 : 1955 Gender:F Ordering : DR SEGUN KINGSLEY D.O. Admission #: [id number] Family : Order #: [id number] CLICK HERE TO VIEW EXAM RADIOLOGY REPORT PROCEDURE: MAMMOGRAM SCREENING 3D BILATERAL CAD COMPARISON: MG MAMM SCREEN 3D TUSHAR CAD, 04/05/2021. MG MAMM SCREEN TUSHAR W CAD, 06/26/2019. INDICATIONS: Screening mammography Calculator Name NCI Breast Cancer Risk Assessment Tool 5 Year Breast Cancer Risk 1.70% Lifetime Breast Cancer Risk 5.90% Personal Breast Cancer No Personal Ovarian Cancer No Treatments None Family Cancers None LOCATION: [facility] BREAST COMPOSITION: Heterogeneously dense,which may obscure small masses. FINDINGS: DIAGNOSTIC CATEGORY 1--NEGATIVE. NO CHANGE FROM COMPARISON ASSESSMENT. Scattered benign-appearing lymph nodes are present. RIGHT BREAST: No significant suspicious finding. LEFT BREAST: No significant suspicious finding. RECOMMENDATIONS: ROUTINE MAMMOGRAM AND CLINICAL EVALUATION IN 12 MONTHS. PLEASE NOTE: A NORMAL MAMMOGRAM DOES NOT EXCLUDE THE POSSIBILITY OF BREAST CANCER. A CLINICALLY SUSPICIOUS PALPABLE LUMP SHOULD BE BIOPSIED. Dictated by: Everett Ernandez MD on 07/06/2022 at 09:59 Approved by: Everett Ernandez MD on 07/06/2022 at 10:00 Normal [facility] CBC AUTO DIFFon 06-20-2022 BASO # 0.1 103/ul Normal 0.0-0.1 [facility] Comment on above: Performed By: #### C BC #### [facility] [address] [address] [address] Alejandrina Feng Basophils/100 WBC (Bld) 0.4 % Normal 0.2-2.0 [facility] Comment on above: Performed By: #### C BC #### [facility] [address] [address] [address] Alejandrina Feng EO # 0.1 103/ul Normal 0.0-0.7 [facility] Comment on above: Performed By: #### C BC #### [facility] [address] [place] [address] Dr. Alejandrina Feng Eosinophils/100 WBC (Bld) 0.6 % Critically low 0.9-7.0 [facility] Comment on above: Performed By: #### C BC #### [facility] [address] [place] [address] Dr. Alejandrina Feng Erythrocyte distribution width (RBC) [Ratio] 14.6 % Normal 11.0-15.0 [facility] Comment on above: Performed By: #### C BC #### [facility] [address] [place] [address] Dr. Alejandrina Feng Hematocrit (Bld) [Volume fraction] 43.6 % Normal 36.0-48.0 [facility] Comment on above: Performed By: #### C BC #### [facility] [address] [place] [address] Dr. Alejandrina Feng Hemoglobin (Bld) [Mass/Vol] 14.1 g/dL Normal 12.0-16.0 [facility] Comment on above: Performed By: #### C BC #### [facility] [address] [place] [address] Dr. Alejandrina Feng IG # 0.07 10e3/ul Critically high 0.00-0.03 [facility] Comment on above: Performed By: #### C BC #### [facility] [address] [place] [address] Dr. Alejandrina Feng IG % 0.6 % Critically high 0.0-0.5 [facility] Comment on above: Performed By: #### C BC #### [facility] [address] [place] [address] Dr. Alejandrina Feng LYMPH # 1.6 103/ul Normal 1.2-3.8 [facility] Comment on above: Performed By: #### C BC #### [facility] [address] [place] [address] Dr. Alejandrina Feng Lymphocytes/100 WBC (Bld) 12.4 % Critically low 20.5-60.0 [facility] Comment on above: Performed By: #### C BC #### [facility] [address] [place] [address] Dr. Alejandrina Feng MANUAL DIFF REQ NO Normal [facility] Comment on above: Performed By: #### C BC #### [facility] [address] [place] [address] Dr. Alejandrina Feng MCH (RBC) [Entitic mass] 27.9 pg Normal 26.7-34.0 [facility] Comment on above: Performed By: #### C BC #### [facility] [address] [place] [address] Dr. Alejandrina Feng MCHC (RBC) [Mass/Vol] 32.3 g/dL Normal 29.9-35.2 [facility] Comment on above: Performed By: #### C BC #### [facility] [address] [place] [address] Dr. Alejandrina Feng MCV (RBC) [Entitic vol] 86.3 fL Normal 81.0-99.0 [facility] Comment on above: Performed By: #### C BC #### [facility] [address] [place] [address] Dr. Alejandrina Feng MONO # 0.9 103/ul Critically high 0.3-0.8 [facility] Comment on above: Performed By: #### C BC #### [facility] [address] [place] [address] Dr. Alejandrina Feng Monocytes/100 WBC (Bld) 7.2 % Normal 1.7-12.0 [facility] Comment on above: Performed By: #### C BC #### [facility] [address] [place] [address] Dr. Alejandrina Feng NEUT # 10.0 103/ul Critically high 1.4-6.5 [facility] Comment on above: Performed By: #### C BC #### [facility] [address] [place] [address] Dr. Alejandrina Feng Neutrophils/100 WBC (Bld) 78.8 % Critically high 43.0-75.0 [facility] Comment on above: Performed By: #### C BC #### [facility] [address] [place] [address] Dr. Alejandrina Feng Platelet mean volume (Bld) [Entitic vol] 8.8 fL Critically low 9.5-13.5 [facility] Comment on above: Performed By: #### C BC #### [facility] [address] [place] [address] Dr. Alejandrina Feng PLT 404 103/ul Normal 150-450 [facility] Comment on above: Performed By: #### C BC #### [facility] [address] [place] [address] Dr. Alejandrina Feng RBC 5.05 106/ul Normal 4.20-5.40 [facility] Comment on above: Performed By: #### C BC #### [facility] [address] [place] [address] Dr. Alejandrina Feng WBC 12.7 103/ul Critically high 4.0-11.0 [facility] Comment on above: Performed By: #### C BC #### [facility] [address] [place] [address] Dr. Alejandrina Feng PROF 14(COMP METB)on 022 Albumin [Mass/Vol] 3.6 g/dL Normal 3.4-5.0 [facility] Comment on above: Performed By: #### C MP, TSH #### [facility] [address] [place] [address] Dr. Alejandrina Feng Albumin/Globulin [Mass ratio] 0.8 {ratio} Normal [facility] Comment on above: Performed By: #### C MP, TSH #### [facility] [address] [place] [address] Dr. Alejandrina Feng ALP [Catalytic activity/Vol] 182 U/L Critically high 46-116 [facility] Comment on above: Performed By: #### C MP, TSH #### [facility] [address] [place] [address] Dr. Alejandrina Feng ALT [Catalytic activity/Vol] 29 U/L Normal 14-59 [facility] Comment on above: Performed By: #### C MP, TSH #### [facility] [address] [address] [address] Alejandrina Feng Anion gap [Moles/Vol] 13.4 mmol/L Normal [facility] Comment on above: Performed By: #### C MP, TSH #### [facility] [address] [address] [address] Alejandrina Feng AST [Catalytic activity/Vol] 22 U/L Normal 15-37 [facility] Comment on above: Performed By: #### C MP, TSH #### [facility] [address] [address] [address] Alejandrina Feng Bilirubin [Mass/Vol] 0.5 mg/dL Normal 0.2-1.0 [facility] Comment on above: Performed By: #### C MP, TSH #### [facility] [address] [address] [address] Alejandrina Feng Calcium [Mass/Vol] 9.3 mg/dL Normal 8.5-10.1 [facility] Comment on above: Performed By: #### C MP, TSH #### [facility] [address] [address] [address] Alejandrina Feng Chloride [Moles/Vol] 102 mmol/L Normal 98-107 [facility] Comment on above: Performed By: #### C MP, TSH #### [facility] [address] [address] [address] Alejandrina Feng CO2 [Moles/Vol] 26.2 mmol/L Normal 21.0-32.0 [facility] Comment on above: Performed By: #### C MP, TSH #### [facility] [address] [address] [address] Alejandrina Feng Creatinine [Mass/Vol] 0.94 mg/dL Normal 0.55-1.02 [facility] Comment on above: Performed By: #### C MP, TSH #### [facility] [address] [address] [address] Alejandrina Feng EGFR-AF UKRAINIAN >60 Normal >=60 [facility] Comment on above: Performed By: #### C MP, TSH #### [facility] [address] [address] [address] Alejandrina Feng EGFR-NON AF UKRAINIAN 59 mL/min/1.73m2 Critically low >=60 [facility] Comment on above: Performed By: #### C MP, TSH #### [facility] [address] [address] [address] Alejandrina Feng Globulin (S) [Mass/Vol] 4.3 g/dL Normal [facility] Comment on above: Performed By: #### C MP, TSH #### [facility] [address] [address] [address] Alejandrina Feng Glucose [Mass/Vol] 101 mg/dL Normal 74-106 [facility] Comment on above: Performed By: #### C MP, TSH #### [facility] [address] [address] [address] Alejandrina Feng Potassium [Moles/Vol] 4.6 mmol/L Normal 3.5-5.1 [facility] Comment on above: Performed By: #### C MP, TSH #### [facility] [address] [address] [address] Alejandrina Feng Protein [Mass/Vol] 7.9 g/dL Normal 6.4-8.2 [facility] Comment on above: Performed By: #### C MP, TSH #### [facility] [address] [address] [address] Alejandrina Feng Sodium [Moles/Vol] 137 mmol/L Normal 136-145 [facility] Comment on above: Performed By: #### C MP, TSH #### [facility] [address] [address] [address] Alejandrina Feng Urea nitrogen [Mass/Vol] 19.0 mg/dL Critically high 7.0-18.0 [facility] Comment on above: Performed By: #### C MP, TSH #### [facility] [address] [address] [address] Alejandrina Feng Urea nitrogen/Creatinine [Mass ratio] 20.2 mg/mg Normal [facility] Comment on above: Performed By: #### C MP, TSH #### [facility] [address] [place] [address] Dr. Alejandrina Feng TSHon 06-20-2022 TSH 0.854 uIU/mL Normal 0.358-3.740 [facility] Comment on above: Performed By: #### C MP, TSH #### [facility] [address] [place] [address] Dr. Alejandrina Feng Covid-19 PCR ([facility])on 02-23 SARS-CoV-2 (COVID-19) RNA JACKSON+probe Ql (Unsp spec) Not detected Normal NOT DETECTED [facility] Comment on above: Result Comment: When diagnostic testing is negative, the possibility of a false negative should be considered in the context of a patient's recent exposures and the presence of clinical signs and symptoms consistent with SARS-CoV-2. This test is not yet approved or cleared by the [place] FDA. When there are no FDA-approved or cleared tests available, and other criteria are met, FDA can make tests available under an emergency access mechanism called an Emergency Use Authorization (EUA). The EUA for this test is supported by the [place] of Health and Human Service's declaration that circumstances exist to justify the emergency use of in vitro diagnostics for the detection and/or diagnosis of the virus that causes COVID-19. This EUA will remain in effect for the duration of the COVID-19 declaration justifying emergency of IVDs, unless it is terminated or revoked by the FDA (after which the test may no longer be used). Performed By: #### C BC #### [facility] [address] [place] [address] Dr. Alejandrina Feng ELECTROLYTESon 03-09-2022 Anion gap [Moles/Vol] 14.8 mmol/L Normal [facility] Comment on above: Performed By: #### E LEC #### [facility] [address] [place] [address] Dr. Alejandrina Feng Chloride [Moles/Vol] 103 mmol/L Normal 98-107 [facility] Comment on above: Performed By: #### E LEC #### [facility] [address] [place] [address] Dr. Alejandrina Feng CO2 [Moles/Vol] 25.2 mmol/L Normal 21.0-32.0 [facility] Comment on above: Performed By: #### E LEC #### [facility] [facility] [address] [address] [address] Alejandrina Feng Potassium [Moles/Vol] 4.0 mmol/L Normal 3.5-5.1 [facility] Comment on above: Performed By: #### E LEC #### [facility] [address] [address] [address] Alejandrina Feng Sodium [Moles/Vol] 139 mmol/L Normal 136-145 [facility] Comment on above: Performed By: #### E LEC #### [facility] [address] [place] [address] Dr. Alejandrina Feng Covid-19 PCR (CVDTB)on SARS-CoV-2 (COVID-19) RNA JACKSON+probe Ql (Unsp spec) Not detected Normal NOT DETECTED [facility] Comment on above: Result Comment: This test is not yet approved or cleared by the [place] FDA. When there are no FDA-approved or cleared tests available, and other criteria are met, FDA can make tests available under an emergency access mechanism called an Emergency Use Authorization (EUA). The EUA for this test is supported by the [place] of Health and Human Service's (HHS's) declaration that circumstances exist to justify the emergency use of in vitro diagnostics for the detection and/or diagnosis of the virus that causes COVID-19. This EUA will remain in effect (meaning this test can be used) for the duration of the COVID-19 declaration justifying emergency of IVDs, unless it is terminated or revoked by FDA (after which the test may no longer be used). When diagnostic testing is negative, the possibility of a false negative should be considered in the context of a patient's recent exposures and the presence of clinical signs and symptoms consistent with SARS-CoV-2. Performed By: #### C VDTBH #### [facility] [address] [address] [address] Alejandrina Feng BNPon 02-22-2022 Natriuretic peptide B (Bld) [Mass/Vol] 60.0 pg/mL Normal <=900.0 [facility] Comment on above: Performed By: #### P THINT #### [facility] [address] [place] [address] Dr. Alejandrina Feng CBC AUTO DIFFon 02-22-2022 BASO # 0.1 103/ul Normal 0.0-0.1 [facility] Comment on above: Performed By: #### C BC #### [facility] [address] [place] [address] Dr. Alejandrina Feng Basophils/100 WBC (Bld) 0.4 % Normal 0.2-2.0 [facility] Comment on above: Performed By: #### C BC #### [facility] [address] [place] [address] Dr. Alejandrina Feng EO # 0.2 103/ul Normal 0.0-0.7 [facility] Comment on above: Performed By: #### C BC #### [facility] [address] [place] [address] Dr. Alejandrina Feng Eosinophils/100 WBC (Bld) 1.4 % Normal 0.9-7.0 [facility] Comment on above: Performed By: #### C BC #### [facility] [address] [place] [address] Dr. Alejandrina Feng Erythrocyte distribution width (RBC) [Ratio] 13.3 % Normal 11.0-15.0 [facility] Comment on above: Performed By: #### C BC #### [facility] [address] [place] [address] Dr. Alejandrina Feng Hematocrit (Bld) [Volume fraction] 45.1 % Normal 36.0-48.0 [facility] Comment on above: Performed By: #### C BC #### [facility] [address] [place] [address] Dr. Alejandrina Feng Hemoglobin (Bld) [Mass/Vol] 14.4 g/dL Normal 12.0-16.0 [facility] Comment on above: Performed By: #### C BC #### [facility] [address] [place] [address] Dr. Alejandrina Feng IG # 0.05 10e3/ul Critically high 0.00-0.03 [facility] Comment on above: Performed By: #### C BC #### [facility] [address] [place] [address] Dr. Alejandrina Feng IG % 0.4 % Normal 0.0-0.5 [facility] Comment on above: Performed By: #### C BC #### [facility] [address] [place] [address] Dr. Alejandrina Feng LYMPH # 1.6 103/ul Normal 1.2-3.8 [facility] Comment on above: Performed By: #### C BC #### [facility] [address] [place] [address] Dr. Alejandrina Feng Lymphocytes/100 WBC (Bld) 11.2 % Critically low 20.5-60.0 [facility] Comment on above: Performed By: #### C BC #### [facility] [address] [place] [address] Dr. Alejandrina Feng MANUAL DIFF REQ NO Normal [facility] Comment on above: Performed By: #### C BC #### [facility] [address] [place] [address] Dr. Alejandrina Feng MCH (RBC) [Entitic mass] 28.0 pg Normal 26.7-34.0 [facility] Comment on above: Performed By: #### C BC #### [facility] [address] [place] [address] Dr. Alejandrina Feng MCHC (RBC) [Mass/Vol] 31.9 g/dL Normal 29.9-35.2 [facility] Comment on above: Performed By: #### C BC #### [facility] [address] [place] [address] Dr. Alejandrina Feng MCV (RBC) [Entitic vol] 87.6 fL Normal 81.0-99.0 [facility] Comment on above: Performed By: #### C BC #### [facility] [address] [place] [address] Dr. Alejandrina Feng MONO # 0.6 103/ul Normal 0.3-0.8 [facility] Comment on above: Performed By: #### C BC #### [facility] [address] [place] [address] Dr. Alejandrina Feng Monocytes/100 WBC (Bld) 4.5 % Normal 1.7-12.0 [facility] Comment on above: Performed By: #### C BC #### [facility] [address] [place] [address] Dr. Alejandrina Feng NEUT # 11.4 103/ul Critically high 1.4-6.5 [facility] Comment on above: Performed By: #### C BC #### [facility] [address] [place] [address] Dr. Alejandrina Feng Neutrophils/100 WBC (Bld) 82.1 % Critically high 43.0-75.0 [facility] Comment on above: Performed By: #### C BC #### [facility] [address] [place] [address] Dr. Alejandrina Feng Platelet mean volume (Bld) [Entitic vol] 9.1 fL Critically low 9.5-13.5 [facility] Comment on above: Performed By: #### C BC #### [facility] [address] [place] [address] Dr. Alejandrina Feng PLT 363 103/ul Normal 150-450 [facility] Comment on above: Performed By: #### C BC #### [facility] [address] [place] [address] Dr. Alejandrina Feng RBC 5.15 106/ul Normal 4.20-5.40 [facility] Comment on above: Performed By: #### C BC #### [facility] [address] [place] [address] Dr. Alejandrina Feng WBC 13.9 103/ul Critically high 4.0-11.0 [facility] Comment on above: Performed By: #### C BC #### [facility] [address] [place] [address] Dr. Alejandrina Feng PROF 14(COMP METB)on 022 Albumin [Mass/Vol] 4.0 g/dL Normal 3.4-5.0 [facility] Comment on above: Performed By: #### P THINT #### [facility] [address] [place] [address] Dr. Alejandrina Feng Albumin/Globulin [Mass ratio] 0.8 {ratio} Normal [facility] Comment on above: Performed By: #### P THINT #### [facility] [address] [address] [address] Alejandrina Feng ALP [Catalytic activity/Vol] 200 U/L Critically high 46-116 [facility] Comment on above: Performed By: #### P THINT #### [facility] [address] [place] [address] Dr. Alejandrina Feng ALT [Catalytic activity/Vol] 29 U/L Normal 14-59 [facility] Comment on above: Performed By: #### P THINT #### [facility] [address] [place] [address] Dr. Alejandrina Feng Anion gap [Moles/Vol] 12.2 mmol/L Normal [facility] Comment on above: Performed By: #### P THINT #### [facility] [address] [place] [address] Dr. Alejandrina Feng AST [Catalytic activity/Vol] 25 U/L Normal 15-37 [facility] Comment on above: Performed By: #### P THINT #### [facility] [address] [place] [address] Dr. Alejandrina Feng Bilirubin [Mass/Vol] 0.4 mg/dL Normal 0.2-1.0 [facility] Comment on above: Performed By: #### P THINT #### [facility] [address] [address] [address] Alejandrina Feng Calcium [Mass/Vol] 9.5 mg/dL Normal 8.5-10.1 [facility] Comment on above: Performed By: #### P THINT #### [facility] [address] [place] [address] Dr. Alejandrina Feng Chloride [Moles/Vol] 101 mmol/L Normal 98-107 [facility] Comment on above: Performed By: #### P THINT #### [facility] [address] [address] [address] Alejandrina Feng CO2 [Moles/Vol] 25.8 mmol/L Normal 21.0-32.0 [facility] Comment on above: Performed By: #### P THINT #### [facility] [address] [address] [address] Alejandrina Feng Creatinine [Mass/Vol] 0.69 mg/dL Normal 0.55-1.02 [facility] Comment on above: Performed By: #### P THINT #### [facility] [address] [address] [address] Alejandrina Feng EGFR-AF UKRAINIAN >60 Normal >=60 [facility] Comment on above: Performed By: #### P THINT #### [facility] [address] [address] [address] Alejandrina Feng EGFR-NON AF UKRAINIAN >60 Normal >=60 [facility] Comment on above: Performed By: #### P THINT #### [facility] [address] [address] [address] Alejandrina Feng Globulin (S) [Mass/Vol] 4.8 g/dL Normal [facility] Comment on above: Performed By: #### P THINT #### [facility] [address] [address] [address] Alejandrina Feng Glucose [Mass/Vol] 96 mg/dL Normal 74-106 [facility] Comment on above: Performed By: #### P THINT #### [facility] [address] [address] [address] Alejandrina Feng Potassium [Moles/Vol] 4.0 mmol/L Normal 3.5-5.1 [facility] Comment on above: Performed By: #### P THINT #### [facility] [address] [address] [address] Alejandrina Feng Protein [Mass/Vol] 8.8 g/dL Critically high 6.4-8.2 [facility] Comment on above: Performed By: #### P THINT #### [facility] [address] [address] [address] Alejandrina Feng Sodium [Moles/Vol] 135 mmol/L Critically low 136-145 Th e [facility] Comment on above: Performed By: #### P THINT #### [facility] [address] [address] [address] Alejandrina Feng Urea nitrogen [Mass/Vol] 18.0 mg/dL Normal 7.0-18.0 [facility] Comment on above: Performed By: #### P THINT #### [facility] [address] [address] [address] Alejandrina Feng Urea nitrogen/Creatinine [Mass ratio] 26.1 mg/mg Normal [facility] Comment on above: Performed By: #### P THINT #### [facility] [address] [place] [address] Dr. Alejandrina Feng TROPONIN, HIGH SENSITIVITYon 02-22-2022 HSTROP 7.4 pg/mL Normal 4.0-51.3 [facility] Comment on above: Result Comment: CUT- OFF POINTS HAVE BEEN ESTABLISHED BASED ON THE FOURTH UNIVERSAL DEFINITIONS OF MYOCARDIAL INFARCTION. THE UPPER REFERENCE LIMIT (URL) OF TROPONIN, DEFINED THE 99TH PERCENTILE OF cTnI DISTRIBUTION IN A REFERENCE POPULATION, HAS BEEN CONFIRMED THE DECISION THRESHOLD FOR AR DIAGNOSIS. Performed By: #### H STROPN #### [facility] [address] [place] [address] Dr. Alejandrina Feng HSTROP 6.4 pg/mL Normal 4.0-51.3 [facility] Comment on above: Result Comment: CUT- OFF POINTS HAVE BEEN ESTABLISHED BASED ON THE FOURTH UNIVERSAL DEFINITIONS OF MYOCARDIAL INFARCTION. THE UPPER REFERENCE LIMIT (URL) OF TROPONIN, DEFINED THE 99TH PERCENTILE OF cTnI DISTRIBUTION IN A REFERENCE POPULATION, HAS BEEN CONFIRMED THE DECISION THRESHOLD FOR AR DIAGNOSIS. Performed By: #### P THINT #### [facility] [address] [place] [address] Dr. Alejandrina Feng XR CHEST 1 Von 02-22-2022 XR CHEST 1 V EXAMINATION: XR CHES T 1 V HISTORY: CHEST PAIN, UNSPECIFIED COMPARISON: 10/26/2021 TECHNIQUE: AP portable erect FINDINGS: LUNGS: No significant pulmonary parenchymal abnormalities. VASCULATURE: No increased pulmonary vasculature. PLEURA: No pneumothorax, effusion, or pleural thickening. CARDIAC: No cardiomegaly or cardiac silhouette abnormality. MEDIASTINUM: No visible mass or adenopathy. BONES: No fracture or visible bone lesion. OTHER: Negative. IMPRESSION: No acute disease. Electronically authenticated by: EVERETT ERNANDEZ Date: 2022-02-22 13:20 Normal [facility] OSMOLALITYon 02-02-2022 Osmolality [Osmolality] 284 mosm/kg Normal 280-301 [facility] Comment on above: Performed By: #### P THINT #### [facility] [address] [place] [address] Dr. Alejandrina Feng OSMOLALITY URINEon 2 Osmolality, Urine 629 mOsmol/kg Normal [facility] Comment on above: Result Comment: 24 h r : 300 - 900 Random: 50 - 1400 After 12hr fluid restriction: >850 Performed By: #### O SMOU #### [facility] [address] [place] [address] Dr. Alejandrina Feng PTH INTACTon 02-01-2022 PTH, Intact 42 pg/mL Normal 15-65 [facility] Comment on above: Performed By: #### P THINT #### [facility] [address] [place] [address] Dr. Alejandrina Feng PROF CHEM 8 (BAS METB)on Anion gap [Moles/Vol] 12.7 mmol/L Normal [facility] Comment on above: Performed By: #### P THINT #### [facility] [address] [place] [address] Dr. Alejandrina Feng Calcium [Mass/Vol] 8.7 mg/dL Normal 8.5-10.1 [facility] Comment on above: Performed By: #### P THINT #### [facility] [address] [place] [address] Dr. Alejandrina Feng Chloride [Moles/Vol] 100 mmol/L Normal 98-107 [facility] Comment on above: Performed By: #### P THINT #### [facility] [address] [place] [address] Dr. Alejandrina Feng CO2 [Moles/Vol] 27.7 mmol/L Normal 21.0-32.0 [facility] Comment on above: Performed By: #### P THINT #### [facility] [address] [address] [address] Alejandrina Feng Creatinine [Mass/Vol] 0.65 mg/dL Normal 0.55-1.02 [facility] Comment on above: Performed By: #### P THINT #### [facility] [address] [address] [address] Alejandrina Feng EGFR-AF UKRAINIAN >60 Normal >=60 [facility] Comment on above: Performed By: #### P THINT #### [facility] [address] [address] [address] Alejandrina Feng EGFR-NON AF UKRAINIAN >60 Normal >=60 [facility] Comment on above: Performed By: #### P THINT #### [facility] [address] [address] [address] Alejandrina Feng Glucose [Mass/Vol] 103 mg/dL Normal 74-106 [facility] Comment on above: Performed By: #### P THINT #### [facility] [address] [place] [address] Dr. Alejandrina Feng Potassium [Moles/Vol] 3.4 mmol/L Critically low 3.5-5.1 [facility] Comment on above: Performed By: #### P THINT #### [facility] [address] [address] [address] Alejandrina Feng Sodium [Moles/Vol] 137 mmol/L Normal 136-145 [facility] Comment on above: Performed By: #### P THINT #### [facility] [address] [place] [address] Dr. Alejandrina Feng Urea nitrogen [Mass/Vol] 15.0 mg/dL Normal 7.0-18.0 [facility] Comment on above: Performed By: #### P THINT #### [facility] [address] [address] [address] Alejandrina Feng Urea nitrogen/Creatinine [Mass ratio] 23.1 mg/mg Normal [facility] Comment on above: Performed By: #### P THINT #### [facility] [address] [place] [address] Dr. Alejandrina Feng SODIUM RANDOM URINEon 2021 Sodium (U) [Moles/Vol] 74 mmol/L Normal 30-90 [facility] Comment on above: Performed By: #### N AU #### [facility] [address] [place] [address] Dr. Alejandrina Feng TSHon 01-31-2022 TSH 0.791 uIU/mL Normal 0.358-3.740 [facility] Comment on above: Performed By: #### P THINT #### [facility] [address] [place] [address] Dr. Alejandrina Feng TSH RANGE SEE BELOW Normal [facility] Comment on above: Result Comment: <0.3 4 UIU/ml HYPERTHYROID 0.34-5.60 UIU/ml EUTHYROID >5.60 UIU/ml HYPOTHYROID Performed By: #### P THINT #### [facility] [address] [place] [address] Dr. Alejandrina Feng Vital Signs Date Time Vital Sign Value Performing Clinician Facility 10-09-2023 10:00-0500 Body height 162.56 cm Segun Kingsley Other [facility] Other 10-09-2023 10:00-0500 Body mass index (BMI) [Ratio] 25.81 kg/m2 Segun Kingsley Other [facility] Other 10-09-2023 10:00-0500 Body weight 68.22 kg Segun Kingsley Other [facility] Other 10-09-2023 10:00-0500 Diastolic blood pressure 83 mm[Hg] Segun WeddingLovely Other [facility] Other 10-09-2023 10:00-0500 Respiratory rate 12 /min Segun Kingsley Other [facility] Other 10-09-2023 10:00-0500 Systolic blood pressure 126 mm[Hg] Segun Ball Other [facility] Other 09-19-2023 13:45-0500 Body height 162.56 cm Segun Ball Other [facility] Other 09-19-2023 13:45-0500 Body mass index (BMI) [Ratio] 26.02 kg/m2 Segun Ball Other [facility] Other 09-19-2023 13:45-0500 Body weight 68.77 kg Segun Ball Other [facility] Other 09-19-2023 13:45-0500 Diastolic blood pressure 79 mm[Hg] Segun Ball Other [facility] Other 09-19-2023 13:45-0500 Respiratory rate 12 /min Segun Ball Other [facility] Other 09-19-2023 13:45-0500 Systolic blood pressure 123 mm[Hg] Segun Ball Other [facility] Other 04-10-2023 11:00-0400 Body height 162.56 cm Segun Ball Other [facility] Other 04-10-2023 11:00-0400 Body mass index (BMI) [Ratio] 26.29 kg/m2 Segun Ball Other [facility] Other 04-10-2023 11:00-0400 Body weight 69.49 kg Segun Ball Other [facility] Other 04-10-2023 11:00-0400 Diastolic blood pressure 74 mm[Hg] Segun Ball Other [facility] Other 04-10-2023 11:00-0400 Respiratory rate 12 /min Segun Ball Other [facility] Other 04-10-2023 11:00-0400 Systolic blood pressure 108 mm[Hg] Segun Ball Other [facility] Other 01-25-2023 12:30-0400 Body height 162.56 cm Segun Ball Other [facility] Other 01-25-2023 12:30-0400 Body mass index (BMI) [Ratio] 26.05 kg/m2 Segun Ball Other [facility] Other 01-25-2023 12:30-0400 Body weight 68.86 kg Segun Ball Other [facility] Other 01-25-2023 12:30-0400 Diastolic blood pressure 81 mm[Hg] Segun Ball Other [facility] Other 01-25-2023 12:30-0400 Respiratory rate 12 /min Segun Ball Other [facility] Other 01-25-2023 12:30-0400 Systolic blood pressure 119 mm[Hg] Segun Ball Other [facility] Other 12-06-2022 11:00-0400 Body height 162.56 cm Segun Ball Other [facility] Other 12-06-2022 11:00-0400 Body mass index (BMI) [Ratio] 25.98 kg/m2 Segun Ball Other [facility] Other 12-06-2022 11:00-0400 Body weight 68.68 kg Segun Sancho Other [facility] Other 12-06-2022 11:00-0400 Diastolic blood pressure 74 mm[Hg] Segun Sancho Other [facility] Other 12-06-2022 11:00-0400 Respiratory rate 16 /min Segun Sancho Other [facility] Other 12-06-2022 11:00-0400 Systolic blood pressure 117 mm[Hg] Segun Sancho Other [facility] Other 07-13-2022 13:16-0400 Blood Pressure Location NOE SVITLANA [facility] 07-13-2022 13:16-0400 Diastolic blood pressure 88 mm[Hg] NOE SVITLANA [facility] 07-13-2022 13:16-0400 Heart rate 79 /min NOE SVITLANA [facility] 07-13-2022 13:16-0400 Respiratory rate 16 /min NOE SVITLANA [facility] 07-13-2022 13:16-0400 Systolic blood pressure 138 mm[Hg] NOE SVITLANA [facility] Encounters Encounter Date Encounter Type Care Provider Facility Start: 02-26-2024 ambulatory Enrique Boss ty:[facility] Start: 10-10-2023 End: 10-10-2023 ambulatory Segun Sancho Other [facility] Other Start: 10-10-2023 Telephone encounter Segun Kingsley [facility] Start: 10-09-2023 End: 10-09-2023 ambulatory Segun Ball Other [facility] Other Start: 10-09-2023 Office outpatient vi sit 25 minutes Segun Ball [facility] Start: 09-22-2023 End: 09-22-2023 ambulatory Segun Ball Other [facility] Other Start: 09-22-2023 Telephone encounter Segun Ball [facility] Start: 09-19-2023 End: 09-19-2023 ambulatory Segun Ball Other [facility] Other Start: 09-19-2023 Office outpatient vi sit 15 minutes Segun Ball [facility] Start: 09-13-2023 Telephone encounter Segun Ball [facility] Start: 09-13-2023 End: 09-13-2023 [facility] [employer] [facility] Start: 07-19-2023 End: 07-19-2023 ambulatory Segun Ball Other [facility] Other Start: 07-19-2023 Office outpatient vi sit 15 minutes Segun Ball [facility] Start: 06-20-2023 End: 06-20-2023 ambulatory Segun Ball Other [facility] Other Start: 06-20-2023 Telephone encounter Segun Ball [facility] Start: 04-13-2023 End: 04-13-2023 ambulatory Segun Ball Other [facility] Other Start: 04-13-2023 Telephone encounter Segun Ball [facility] Start: 04-10-2023 End: 04-10-2023 ambulatory Segun Ball Other [facility] Other Start: 04-10-2023 Encounter for genera l adult medical examination without abnormal findings Segun Ball [facility] Start: 04-10-2023 Periodic preventive med est patient 65yrs& older Segun Sancho [facility] Start: 02-13-2023 End: 02-14-2023 ambulatory Enrique VÁSQUEZ Facility: [facility] Start: 01-25-2023 End: 01-25-2023 ambulatory Segun Kingsley Other [facility] Other Start: 01-25-2023 Office outpatient vi sit 15 minutes Segun Kingsley [facility] Start: 01-20-2023 End: 01-21-[address] ENRIQUE VÁSQUEZ . Facility:[facility] Start: 12-06-2022 End: 12-06-2022 ambulatory Segun Kingsley Other [facility] Other Start: 12-06-2022 Office outpatient vi sit 25 minutes Segun Kingsley [facility] Start: 10-27-2022 End: 10-28-[address] ENRIQUE VÁSQUEZ . Facility:[facility] Start: 08-26-2022 End: 08-27-[address] ELOINA DUMONT Facility:[facility] Start: 07-13-2022 End: 07-14-2022 ambulatory Jackson Bach Facility:[facility] Start: 07-13-2022 End: 07-13-2022 Patient encounter procedure NOE SHANE [facility] Start: 07-06-2022 End: 07-07-[address] SEGUN KINGSLEY Facility:[facility] Start: 06-20-2022 End: 06-21-[address] SEGUN KINGSLEY Facility:[facility] Start: 04-01-2022 Adult health examination Segun Kingsley Other [facility] Other Start: 03-11-2022 End: 03-11-[address] SEGUN KINGSLEY Facility:[facility] Start: 03-09-2022 End: 03-10-[address] ENRIQUE VÁSQUEZ . Facility:[facility] Start: 03-02-2022 End: 03-02-[address] SEGUN KINGSLEY Facility:[facility] Start: 02-22-2022 End: 02-22-[address] SEGUN KINSGLEY Facility:[facility] Start: 01-31-2022 End: 02-01-[address] SEGUN KINGSLEY Facility:[facility] Procedures Date Procedure Procedure Detail Performing Clinician Start: 06-03-2021 Extracorporeal shock wave lithotripsy of calculus of kidney NOE SHANE Start: 05-30-2021 Ureteroscopy NOE MORAN Start: 05-27-2021 Extracorporeal shock wave lithotripsy of calculus of kidney NOE SHANE Start: 05-20-2021 Extracorporeal shock wave lithotripsy of calculus of kidney NOE SHANE Start: 05-06-2021 Extracorporeal shock wave lithotripsy of calculus of kidney NOE SHANE Colonoscopy NOE SHANE End: 07-19-2021 Hyperlipidemia screening Segun Sancho Other Hysterectomy NOE SHANE Screening for malign ant neoplasm of breast Segun Kingsley Other Immunizations Immunization Date Immunization Notes Care Provider Fa cili 06-22-2022 influenza virus vaccine, split virus (incl. purified surface antigen) Segun Sancho Other [employer] Other 06-22-2022 influenza, high dose seasonal, preservative-free Segun Sancho Other [employer] Other 04-01-2022 pneumococcal conjuga te vaccine, 13 valent NOE SHANE [facility] 09-01-2021 COVID-19 Vaccine Pfi zer - Documentation Purposes Only Segun Kingsley Other [employer] Other 09-01-2021 SARS-CoV-2 (COVID-19 ) Ad26 vaccine, recombinant NOE SHANE [facility] 07-19-2021 influenza virus vaccine, split virus (incl. purified surface antigen) Segun Kingsley Other [employer] Other 05-26-2021 influenza virus vaccine, unspecified formulation NOE SHANE [facility] 01-05-2021 diphtheria, tetanus toxoids and acellular pertussis vaccine, unspecified formulation Segun Kingsley Other [facility] [employer] Other 01-05-2021 tetanus toxoid, redu agustin diphtheria toxoid, and acellular pertussis vaccine, adsorbed NOECHAVA SHANE [facility] 12-25-2020 COVID-19, mRNA, LNP- S, PF, 30 mcg/0.3 mL dose NOE SVITLANA [facility] Comment on above: Reason for Medicatio n: Prophylaxis 12-04-2020 COVID-19, mRNA, LNP- S, PF, 30 mcg/0.3 mL dose NOE SVITLANA [facility] Comment on above: Reason for Medicatio n: Prophylaxis 08-14-2020 pneumococcal polysaccharide vaccine, 23 valent Segun Kingsley Other [facility] [employer] Other 08-11-2020 influenza virus vaccine, split virus (incl. purified surface antigen) Segun Kingsley Other [employer] Other 08-10-2020 influenza virus vaccine, unspecified formulation NOE SHANE [facility] 07-25-2018 influenza virus vaccine, split virus (incl. purified surface antigen) Segun Kingsley Other [employer] Other 07-25-2018 influenza virus vaccine, unspecified formulation NOE SHANE [facility] 10-12-2017 influenza virus vaccine, split virus (incl. purified surface antigen) Segun Ball Other [employer] Other Payers Date Payer Category Payer Unknown [id number] 2. [id number] 1954 Unknown [id number] 2.16.84 [id number] 1954 Unknown [id number] 2.16.84 0.1.614676.3.579.2.593 1954 Unknown [id number] 2.16.84 0.1.956759.3.579.2.593 1954 Unknown [id number] 2.16.84 0.1.645610.3.579.2.593 1954 Unknown [id number] 2.16.84 0.1.503278.3.579.2.593 1954 Unknown [id number] 2.16.84 0.1.514179.3.579.2.593 1954 Unknown [id number] 2.16.84 0.1.857898.3.579.2.593 1954 Unknown [id number] 2.16.84 0.1.613884.3.579.2.593 1954 Unknown [id number] 2.16.84 0.1.261420.3.579.2.593 1954 Unknown [id number] 2.16.84 0.1.639511.3.579.2.593 1954 Unknown [id number] 2.16.84 0.1.850418.3.579.2.593 1954 Unknown [id number] 2.16.8 40.1.038479.3.579.2.727 1954 Unknown [id number] 2.16.8 40.1.374165.3.579.2.727 1954 Unknown [id number] 2.16.840 .1.093531.3.579.2.1259 Social History Date Type Detail Facility Start: 07-13-2022 Tobacco smoking status Never s moked tobacco (finding) [facility] Tobacco smoking status Never [facility] Sex Assigned At Female [facility] Functional Status Date Assessment Result Facility 07-13-2022 Functional Status N/A [facility] Clinical Notes 07-13-2022 to 10-10-2023 Note Date & Type Note Facility 10-10-2023 Evaluation note Encounter Date Diagnosis Assessment Notes Sep, COVID- 19 (ICD-1 0 - U07.1) [employer] Other 01-15-2024 Evaluation note* Encounter Date Diagnosis Assessment Notes Treatment Notes Treatment Clinical Notes Sep, Primary hypertension (ICD-10 - I10) This patient is instructed to consume a healthy, low-fat, low-salt diet. They are also encouraged to continue exercise to achieve/maintain a normal BMI. Sep, Lumbar spondylitis (ICD-10 - M46.96) The patient is instructed to avoid bending, twisting or lifting. They are to use intermittent heat and ice as needed. They may schedule a massage or gentle manipulation. They may safely use Tylenol as needed. Referred to pain management - prescribed Baclofen q HS - scheduled for injections later this week Sep, Elevated cholesterol (ICD-10 - E78.00) Instructed on diet and exercise with continued statin therapy.Discussed the beneficial effects of lowering cholesterol in reducing the risk for cerebrovascular and cardiovascular disease. Sep, Acute rhinitis (ICD-10 - J00) Instructed to use Flonase/saline NS daily. Mucinex to thin the secretions Instructed to test for COVID and call w/ results If develop fever and purulent drainage, call the office Sep, Gastroesophageal reflux 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 (ICD-10 - K21.00) Avoid lying flat after eating. Avoid eating 2 hours prior to bedtime. Smaller, frequent meals may be better tolerated.Weight loss if overweight.PPI with any heartburn.Monitor for dysphagia. Sep, Recurrent major depressive disorder, in full remission (ICD-10 - F33.42) Mood stable Instructed on healthy diet and exercise Instructed to continue medication w/o interruption. Instructed to avoid d/c meds abruptly [employer] Other 12-26-2023 Evaluation note* Encounter Date Diagnosis Assessment Notes Treatment Notes Treatment Clinical Notes Aug, Lumbar spondylosis (ICD-10 - M47.816) The patient is instructed to avoid bending, twisting or lifting. They are to use intermittent heat and ice as needed. They may schedule a massage or gentle manipulation. They may safely use Tylenol as needed. Discussed referral back to PT - she is to continue HEP as instructed Discussed pain management - pain not to this level at this time Aug, Acute bilateral low back pain without sciatica (ICD-10 - M54.50) Chronic conditino w/ acute exacerbation - instructed on stretching - continue Tylenol, Lidocaine as needed - XR to r/o compression fx [employer] Other 12-26-2023 Evaluation note* Encounter Date Diagnosis Assessment Notes Treatment Notes Treatment Clinical Notes Aug, Lumbar spondylosis (ICD-10 - M47.816) The patient is instructed to avoid bending, twisting or lifting. They are to use intermittent heat and ice as needed. They may schedule a massage or gentle manipulation. They may safely use Tylenol as needed. Discussed referral back to PT - she is to continue HEP as instructed Discussed pain management - pain not to this level at this time Aug, Acute bilateral low back pain without sciatica (ICD-10 - M54.50) Chronic condition w/ acute exacerbation - instructed on stretching - continue Tylenol, Lidocaine as needed - XR to r/o compression fx [employer] Other 12-20-2023 Evaluation note* Encounter Date Diagnosis Assessment Notes Treatment Notes Treatment Clinical Notes Aug, Nontoxic single thyroid nodule (ICD-10 - E04.1) Serial US w/ stable size and appearance. Referred to ENT w/ no further scans recommended. [employer] Other 10-25-2023 Evaluation note* Encounter Date Diagnosis Assessment Notes Treatment Notes Treatment Clinical Notes Jun, COVID (ICD-10 - U07.1) Self isolate at home. - Cannot work - avoid contact with others - avoid pets - wipe counters, door knobs if touched - if can't avoid leaving home, must wear mask to protect others - need to stay isolated for 10 days from onset of symptoms - to discontinue isolation must be 5 days AND must be without fever for 24 hours AND symptoms must be improving. Always wear a mask in public places for complete 10 days Jun, Elevated cholesterol (ICD-10 - E78.00) Must stop Atorvastatin while taking Paxlovid Jun, Primary hypertension (ICD-10 - I10) Instructed to decrease Amlodipine to 5mg qd while taking Paxlovid [employer] Other 07-17-2023 Evaluation note* Encounter Date Diagnosis Assessment Notes Treatment Notes Treatment Clinical Notes Mar, Wellness examination (ICD-10 - Z00.00) Healthy diet and exercise. Reviewed age-appropriate preventive testing recommended. Mar, Gastroesophageal reflux 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 (ICD-10 - K21.00) Diet instructions: Smaller portions, avoid eating and laying flat, avoid eating or drinking prior to bedtime. Weight loss. Mar, Recurrent major depressive disorder, in full remission (ICD-10 - F33.42) Stable w/ medical treatment. Healthy diet, keep active, exercise Mar, Elevated cholesterol (ICD-10 - E78.00) Instructed on diet and exercise with continued statin therapy.Discussed the beneficial effects of lowering cholesterol in reducing the risk for cerebrovascular and cardiovascular disease. Mar, Primary hypertension (ICD-10 - I10) This patient is instructed to consume a healthy, low-fat, low-salt diet. They are also encouraged to continue exercise to achieve/maintain a normal BMI. Mar, Lumbar spondylitis (ICD-10 - M46.96) The patient is instructed to avoid bending, twisting or lifting. They are to use intermittent heat and ice as needed. They may schedule a massage or gentle manipulation. They may safely use Tylenol as needed. Mar, Screening mammogram for breast cancer (ICD-10 - Z12.31) Instructed on monthly SBE and yearly mammogram - due in Jun [employer] Other 05-03-2023 Evaluation note* Encounter Date Diagnosis Assessment Notes Treatment Notes Treatment Clinical Notes January, Insect bite (nonvenomous) of unspecified part of head, initial encounter (ICD-10 - S00.96XA) Irregularly shaped erythematous skin lesion on right cheek. No s/s infection or tinea Trial of mild topical steroids No improvement, refer to dermatology January, Bitten or stung by nonvenomous insect and other nonvenomous arthropods, initial encounter (ICD-10 - W57.XXXA) January, Bilateral nephrolithiasis (ICD-10 - N20.0) Push fluids and continue K-citrate. f/u Urology January, Vaccine counseling (ICD-10 - Z71.85) UTD w/ Tdap and pneumonia Due for COVID booster and Shingrix [employer] Other 03-14-2023 Evaluation note* Encounter Date Diagnosis Assessment Notes Treatment Notes Treatment Clinical Notes Nov, Primary hypertension (ICD-10 - I10) This patient is instructed to consume a healthy, low-fat, low-salt diet. They are also encouraged to continue exercise to achieve/maintain a normal BMI. Nov, Elevated cholesterol (ICD-10 - E78.00) Diet and exercise with continued statin therapy. Nov, Lumbar spondylosis (ICD-10 - M47.816) The patient is instructed to avoid bending, twisting or lifting. They are to use intermittent heat and ice as needed. They may schedule a massage or gentle manipulation. They may safely use Tylenol as needed. Nov, Recurrent major depressive disorder, in full remission (ICD-10 - F33.42) Healthy diet, exercise and keep active. Continue medical treatment. Nov, Gastroesophageal reflux 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 (ICD-10 - K21.00) Diet instructions: Smaller portions, avoid eating and laying flat, avoid eating or drinking prior to bedtime. Continue PPI [employer] Other 10-19-2022 Hospital Discharge instructions Patient Education 07/13/2022 13:30:11 Kidney Stones, Hysp-yl-Akxq Kidney Stones Kidney stones are rock-like masses that form inside of the kidneys. Kidneys are organs that make pee (urine). A kidney stone may move into other parts of the urinary tract, including: The tubes that connect the kidneys to the bladder (ureters). The bladder. The tube that carries urine out of the body (urethra). Kidney stones can cause very bad pain and can block the flow of pee. The stone usually leaves your body (passes) through your pee. You may need to have a doctor take out the stone. What are the causes? Kidney stones may be caused by: A condition in which certain glands make too much parathyroid hormone (primary hyperparathyroidism). A buildup of a type of crystals in the bladder made of a chemical called uric acid. The body makes uric acid when you eat certain foods. Narrowing (stricture) of one or both of the ureters. A kidney blockage that you were born with. Past surgery on the kidney or the ureters, such as gastric bypass surgery. What increases the risk? You are more likely to develop this condition if: You have had a kidney stone in the past. You have a family history of kidney stones. You do not drink enough water. You eat a diet that is high in protein, salt (sodium), or sugar. You are overweight or very overweight (obese). What are the signs or symptoms? Symptoms of a kidney stone may include: Pain in the side of the belly, right below the ribs (flank pain). Pain usually spreads (radiates) to the groin. Needing to pee often or right away (urgently). Pain when going pee (urinating). Blood in your pee (hematuria). Feeling like you may vomit (nauseous). Vomiting. Fever and chills. How is this treated? Treatment depends on the size, location, and makeup of the kidney stones. The stones will often pass out of the body through peeing. You may need to: Drink more fluid to help pass the stone. In some cases, you may be given fluids through an IV tube put into one of your veins at the hospital. Take medicine for pain. Make changes in your diet to help keep kidney stones from coming back. Sometimes, medical procedures are needed to remove a kidney stone. This may involve: A procedure to break up kidney stones using a beam of light (laser) or shock waves. Surgery to remove the kidney stones. Follow these instructions at home: Medicines Take fobi-tez-asgmumq and prescription medicines only as told by your doctor. Ask your doctor if the medicine prescribed to you requires you to avoid driving or using heavy machinery. Eating and drinking Drink enough fluid to keep your pee pale yellow. You may be told to drink at least 8 10 glasses of water each day. This will help you pass the stone. If told by your doctor, change your diet. This may include: ?Limiting how much salt you eat. ?Eating more fruits and vegetables. ?Limiting how much meat, poultry, fish, and eggs you eat. Follow instructions from your doctor about eating or drinking restrictions. General instructions Collect pee samples as told by your doctor. You may need to collect a pee sample: ?24 hours after a stone comes out. ?8 12 weeks after a stone comes out, and every 6 12 months after that. Strain your pee every time you pee (urinate), for as long as told. Use the strainer that your doctor recommends. Do not throw out the stone. Keep it so that it can be tested by your doctor. Keep all follow-up visits as told by your doctor. This is important. You may need follow-up tests. How is this prevented? To prevent another kidney stone: Drink enough fluid to keep your pee pale yellow. This is the best way to prevent kidney stones. Eat healthy foods. Avoid certain foods as told by your doctor. You may be told to eat less protein. Stay at a healthy weight. Where to find more information National Kidney Foundation (NKF): www.kidney.org Urology Care Foundation (F): www.urologyhealth.org Contact a doctor if: You have pain that gets worse or does not get better with medicine. Get help right away if: You have a fever or chills. You get very bad pain. You get new pain in your belly (abdomen). You pass out (faint). You cannot pee. Summary Kidney stones are rock-like masses that form inside of the kidneys. Kidney stones can cause very bad pain and can block the flow of pee. The stones will often pass out of the body through peeing. Drink enough fluid to keep your pee pale yellow. This information is not intended to replace advice given to you by your health care provider. Make sure you discuss any questions you have with your health care provider. Document Released: 02/27/2009 Document Revised: 01/28/2020 Document Reviewed: 01/28/2020 [employer] Patient Education 2019 [employer]. Follow Up Care 10/18/2021 12:21:40 With:SVITLANA IBARRA, NOE Anderson, URL Address: [address] [place] [address] [phone] When: Unknown [facility] [employer] 10-19-2022 Evaluation + Plan note Future Scheduled Tests Laboratory* Basic Metabolic Panel 07/13/22 [facility] [employer] evaluation noteNo InformationN[facility] [employer] Other History general Narrative - Reported* Type Description Date Medical History Essential hypertension Medical History History of nephrolithiasis Medical History ANUJA (generalized anxiety disorde r) Medical History Liver mass Medical History Diverticulosis of sigmoid colon Medical History Chronic left-sided l ow back pain with left-sided sciatica Medical History Epigastric abdominal pain Medical History Depression, major, recurrent, mi ld Medical History Hypokalemia Medical History Irritable bowel syndrome with co nstipation Medical History Major depressive dis order with single episode, in full remission Medical History Hypercholesterolemia Medical History Fatigue Medical History Episode of syncope Medical History Cyst of thyroid Medical History Tachycardia Medical History Hyponatremia Medical History Hypercalcemia Medical History Insomnia Medical History Gastroesophageal ref lux 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 Medical History Lumbar spondylosis Medical History Nephrolithiasis Medical History Allergic conjunctivitis, bilater al Surgical History ESWL, KIDNEY, LEFT 2020 Surgical History FINE NEEDLE ASPIRATION, NODULE, THYROID 2019 Surgical History COLONOSCOPY 2018 Surgical History GENEVA/BSO 2010 Hospitalization History SEE SURGICAL HX [facility] [employer] Other History general Narrative - [facility] Other Hospital course Narrative No data available for this section [facility] [employer] progress note No data available for this section [facility] [employer] reason for referral (narrative)* Reason Referral for treatme nt of chronic low back pain Diagnosis 1 Acute bilateral low back pain without sciatica (M54.50) Diagnosis 2 Lumbar spondylosis ( M47.816) Referral Organization [facility] rivas Referring Provider First Name Segun Referring Provider Last Name Sancho Referring Provider Specialty Internal Me dicine Referred Organization [facility] Referred Address [address] [place], [place],[address] Referred Provider Specialty Pain Medicin e Referral Priority Routine General Notes Patient with chronic low back pain. Increased stiffness and pain, interfering w/ ADL. Pain is daily, moderate and worse with activity following period of inactivity. Pain typical of lumbar spondylosis w/o nerve impingement. She has completed PT and continues w/ HEP. Suggested referral to pain management for injections. Clinical Notes Include XR results [employer] Other Summary Purpose Family History No Family History Records FoundNo Family History Records FoundNo Family History Records Found Advance Directives No Advanced Directives Records FoundNo Advanced Directives Records FoundNo Advanced Directives Records Found Additional Source Comments Patient Care team informatio n (unrecognized section and content) Personnel Name: SEGUN KINGSLEY DO Address: Address: [address], [place], [place] [address] REASON FOR VISIT (unrecogniz ed section and content) 3 month Follow upPossible Sp rondar [id number] COVID +No Informationback painback painXR results6 monthCOVID + INFORMATION SOURCE (unrecogn ized section and content) DATE CREATED AUTHOR 01/27/2023 [facility] DATE CREATED AUTHOR AUTHOR'S ORGANIZ ATION 09/13/2023 [facility] DATE CREATED AUTHOR AUTHOR'S ORGANIZ ATION 09/14/2023 [facility] EPIC FOR RECORDS PERTAINING TO PATIENTS WHO ARE OR HAVE BEEN ENROLLED IN A CHEMICAL DEPENDENCY/SUBSTANCEABUSE PROGRAM, SOME INFORMATION MAY BE OMITTED. This clinical summary was aggregated from multiple sources. Caution should be exercised in using it in the provision of clinical care. This summary normalizes information from multiple sources, and as a consequence, information in this document may materially change the coding, format and clinical context of patient data. In addition, data may be omitted in some cases. CLINICAL DECISIONS SHOULD BE BASED ON THE PRIMARY CLINICAL RECORDS. [facility]. provides no warranty or guarantee of the accuracy or completeness of information in this document.
[2023-10-17 09:02] VITALS: BP 135/86; PULSE 82; RESP 16; TEMP 36.3; O2SAT 98
[2023-10-17 09:56] VITALS: BP 148/81; PULSE 74; RESP 18; O2SAT 94
[2023-10-17] MEDS: BUPIVACAINE HCL 0.25% PF 25 MG/10 ML VIAL 4 ML INJ (09:56)
[2023-10-17 09:58] VITALS: BP 137/72; PULSE 72; RESP 18; O2SAT 95
--- NOTE | 2023-10-17 10:04 | P.ON_ITS ---
Date of procedure: 10/17/23 Pre-op diagnosis: Lumbar spondylosis Post-op diagnosis: same as pre-op Procedure: Right Lumbar 4/5, 5/sacral 1 medial branch block Under fluoroscopic guidance Solution injected: 2millilitersMarcaine 0.25% Anesthesia :none Immediate complications none Time out process compliant After informed consent obtained from the patient placed in the Prone proposition . area was prepped and draped in a sterile fashion using Cloraprep .25 gauge spinal needle inserted over each of the above mentioned target areas . Highland were directed towards the target under fluoroscopic guidance . after encountering each of the targets , no indication of intravascular intraneuronal or intrathecal needle tip placement. Then 0 .5 to 1 Milliliter was injected at each level. Highland removed postoperatively. patient transferred to recovery in stable condition to be discharged home after meeting criteria Anesthesia: Local Surgeon: Laurence Pedersen Condition: stable
== END 2023-10-17 10:04 | disposition home or self-care (01) ==
LOC: SURGOUT 08:36
PROVIDERS: PCP Internal Medicine; Visit Provider Anesthesiology Pain Medicine
DX: M47.816 Spondylosis without myelopathy or radiculopathy, lumbar region (principal)
CPT/HCPCS: 64493; 64494; J0665

== ENCOUNTER 2023-10-26 09:41 | Outpatient (OUT) | payer OTHER, SELFPAY ==
--- OUTSIDE RECORDS SUMMARY | 2023-10-26 09:51 | XMS_ITS | CCD ---
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 Name Role Phone SEGUN KINGSLEY Primary Care [...] or physicia Propensity to adverse reactions Comment:Done [employer] Other (1 source) No Known Medication Allergies; Translations: [No Known Medication Allergies] Propensity to adverse reactions (disorder) [facility] Repository Medications Current Medications Medication Drug Class(es) Dates Sig (Normalized) Sig (Original) acetaminophen 500 mg oral tablet (1 source) Start: 05-05-2021 take 500 mg by mouth twice daily Tylenol 500 mg, Oral, BID Start Date: 05/05/21 Status: Ordered [id number] 60 actuat albuterol 0.09 mg/actuat metered dose [...] Daily, # 90 tab(s), Refills(s) 3, Pharmacy: [facility]5, 163, cm, 10/18/21 11:50:00 EST, [...] 06-01-2023 take 1 capsule by mo [facility] at bedtime as needed Start: 12-01-2022 Start: [...] 6 Episodic Other aftercare (1 source) Other family medicine resident (current) drug therapy; Translations: [OTH NURSING HOME CURRENT DRUG THERAPY] Onset: 2 Episodic Other [...] Results Test Name Value Interpretation Reference Range [facility] it Physician Orderon 09-12-2023 Physician Order [id number] .00TIFF [facility] RAD - MISCon 09-10-2023 RAD - MISC [id number] .00TIFF [facility] Lab Reportson 08-22-2023 Lab Reports [id number]. 00TIFF [facility] Reminderson 08-22-2023 Reminders - From: Selma Allen [...] clinisync. Pt states she is going to [facility] today to have lytes drawn. From: NOE SHANE PA-C (EU - Pending Results) To: EU - Clinical; Sent: 08/22/2023 10:52:27 EST Show up: 08/22/2023 10:51:00 EST Subject: RE: Electrolye panel advise pt electrolytes look good. potassium is slightly lower than earlier this year but still within normal range. would recommend she increase po intake of potassium-rich foods. pt. notified about lab work Normal [facility] Patient Educationon 02-14-20 Patient Education Nephrology Dietary [...] Spinach (cooked), rhubarb, beets, sweet potatoes, and Taiwanese chard. ? Peanuts. ? Potato chips, vincentian fries, and baked potatoes with skin on. ? Nuts and nut products. ? Chocolate. ? If you regularly take a diuretic medicine, make sure to eat at least 1 or 2 servings of fruits or vegetables that are high in potassium each day. These include: ? Avocado. ? Banana. ? Woodruff, prune, carrot, or tomato juice. ? Baked [...] fish oil, or vitamin B6. ? Take tfho-zyt-phbtitl and prescription medicines only as told by your health care provider. These include supplements. What foods should I limit? Limit your in (more content not included)... Normal [facility] Urology Office/Clinic Noteon 02-13-2023 Urology Office/Clinic Note [...] [facility] [address], [place] [address]- Additional Instructions: 1 yr KUB with OV, [...] History Arthritis: Mother (more content not included)... [facility] Comment on above: Result Comment: Elec tronically Signed By: Enrique VÁSQUEZ MD\.br\Date and Time Signed: 02/13/23 15:14 EDT\.br\Electronically Co-Signed By: Selma Aleln\.br\Date and Time Co-Signed: 02/13/23 15:12 EDT RAD - MISCon 01-23-2023 RAD - MISC [id number] .00CD:127 Normal [facility] XR KUB 1 VIEWon 01-20-2023 XR KUB [...] by: EVERETT ERNANDEZ Date: 2023-01-20 11:11 Normal [facility] Lab Reportson 10-31-2022 Lab Reports [id number] .00CD:127 Normal [facility] Physician Orderon 10-28-2022 Physician Order [id number] .00CD:127 Normal [facility] ELECTROLYTESon 10-27-2022 Anion gap [Moles/Vol] 12.4 mmol/L Normal [facility] Comment on above: Performed By: #### P THINT #### [facility] [address] [address] [address] Alejandrina Feng Chloride [Moles/Vol] 102 mmol/L Normal 98-107 [facility] Comment on above: Performed By: #### P THINT #### [facility] [address] [address] [address] Alejandrina Feng CO2 [Moles/Vol] 28.5 mmol/L Normal 21.0-32.0 [facility] Comment on above: Performed By: #### P THINT #### [facility] [address] [address] [address] Alejandrina Feng Potassium [Moles/Vol] 3.9 mmol/L Normal 3.5-5.1 [facility] Comment on above: Performed By: #### P THINT #### [facility] [address] [address] [address] Alejandrina Feng Sodium [Moles/Vol] 139 mmol/L Normal 136-145 [facility] Comment on above: Performed By: #### P THINT #### [facility] [address] [place] [address] Dr. Alejandrina Feng US THYROIDon 08-29-2022 US [...] thyroid stable. TR 3 nodule TI-RADS: The [employer] TI-RADS committee's white paper recommendations for thyroid lesions classified as TR3 (mildly suspicious) are listed below: > 1.5 cm. Follow-up ultrasound in 1, 3, and 5 years. > 2.5 cm. FNA. J. Am Jose Radiol 2017;14:587-595. Electronically authenticated by: EVERETT ERNANDEZ Date: 2022-08-29 07:19 Normal [facility] XR KUB 1 VIEWon 07-14-2022 XR KUB [...] by: JACKSON BACH Date: 2022-07-14 06:26 Normal [facility] ELECTROLYTESon 07-13-2022 Anion gap [Moles/Vol] 9.0 mmol/L Normal [facility] Comment on above: Performed By: #### E LEC #### [facility] [address] [address] [address] Alejandrina Feng Chloride [Moles/Vol] 101 mmol/L Normal 98-107 [facility] Comment on above: Performed By: #### E LEC #### [facility] [address] [address] [address] Alejandrina Feng CO2 [Moles/Vol] 27.5 mmol/L Normal 21.0-32.0 [facility] Comment on above: Performed By: #### E LEC #### [facility] [address] [address] [address] Alejandrina Feng Potassium [Moles/Vol] 3.5 mmol/L Normal 3.5-5.1 [facility] Comment on above: Performed By: #### E LEC #### [facility] [address] [address] [address] Alejandrina Feng Sodium [Moles/Vol] 134 mmol/L Critically low 136-145 [facility] Comment on above: Performed By: #### E LEC #### [facility] [address] [address] [address] Alejandrina Feng MG MAMM SCREEN 3D TUSHAR CADon 07-06-2022 MG MAMM SCREEN 3D TUSHAR CAD Patient: MIK CORONA Exam Date: 07/06/2022 : 1955 Gender:F Ordering : DR SEGUN KINGSLEY D.O. Admission #: [id number] Family : Order #: [id number] CLICK HERE TO VIEW EXAM RADIOLOGY REPORT [...] Treatments None Family Cancers None LOCATION: [facility] BREAST COMPOSITION: Heterogeneously dense,which may obscure [...] MD on 07/06/2022 at 10:00 Normal [facility] CBC AUTO DIFFon 06-20-2022 BASO # 0.1 103/ul Normal 0.0-0.1 [facility] Comment on above: Performed By: #### C BC #### [facility] [address] [address] [address] Alejandrina Feng Basophils/100 WBC (Bld) 0.4 % Normal 0.2-2.0 [facility] Comment on above: Performed By: #### C BC #### [facility] [address] [address] [address] Alejandrina Feng EO # 0.1 103/ul Normal 0.0-0.7 [facility] Comment on above: Performed By: #### C BC #### [facility] [address] [place] [address] Dr. Alejandrina Feng Eosinophils/100 WBC (Bld) 0.6 % Critically low 0.9-7.0 [facility] Comment on above: Performed By: #### C BC #### [facility] [address] [place] [address] Dr. Alejandrina Feng Erythrocyte distribution width (RBC) [Ratio] 14.6 % Normal 11.0-15.0 [facility] Comment on above: Performed By: #### C BC #### [facility] [address] [place] [address] Dr. Alejandrina Feng Hematocrit (Bld) [Volume fraction] 43.6 % Normal 36.0-48.0 [facility] Comment on above: Performed By: #### C BC #### [facility] [address] [place] [address] Dr. Alejandrina Feng Hemoglobin (Bld) [Mass/Vol] 14.1 g/dL Normal 12.0-16.0 [facility] Comment on above: Performed By: #### C BC #### [facility] [address] [place] [address] Dr. Alejandrina Feng IG # 0.07 10e3/ul Critically high 0.00-0.03 [facility] Comment on above: Performed By: #### C BC #### [facility] [address] [place] [address] Dr. Alejandrina Feng IG % 0.6 % Critically high 0.0-0.5 [facility] Comment on above: Performed By: #### C BC #### [facility] [address] [place] [address] Dr. Alejandrina Feng LYMPH # 1.6 103/ul Normal 1.2-3.8 [facility] Comment on above: Performed By: #### C BC #### [facility] [address] [place] [address] Dr. Alejandrina Feng Lymphocytes/100 WBC (Bld) 12.4 % Critically low 20.5-60.0 [facility] Comment on above: Performed By: #### C BC #### [facility] [address] [place] [address] Dr. Alejandrina Feng MANUAL DIFF REQ NO Normal [facility] Comment on above: Performed By: #### C BC #### [facility] [address] [place] [address] Dr. Alejandrina Feng MCH (RBC) [Entitic mass] 27.9 pg Normal 26.7-34.0 [facility] Comment on above: Performed By: #### C BC #### [facility] [address] [place] [address] Dr. Alejandrina Feng MCHC (RBC) [Mass/Vol] 32.3 g/dL Normal 29.9-35.2 [facility] Comment on above: Performed By: #### C BC #### [facility] [address] [place] [address] Dr. Alejandrina Feng MCV (RBC) [Entitic vol] 86.3 fL Normal 81.0-99.0 [facility] Comment on above: Performed By: #### C BC #### [facility] [address] [place] [address] Dr. Alejandrina Feng MONO # 0.9 103/ul Critically high 0.3-0.8 [facility] Comment on above: Performed By: #### C BC #### [facility] [address] [place] [address] Dr. Alejandrina Feng Monocytes/100 WBC (Bld) 7.2 % Normal 1.7-12.0 [facility] Comment on above: Performed By: #### C BC #### [facility] [address] [place] [address] Dr. Alejandrina Feng NEUT # 10.0 103/ul Critically high 1.4-6.5 [facility] Comment on above: Performed By: #### C BC #### [facility] [address] [place] [address] Dr. Alejandrina Feng Neutrophils/100 WBC (Bld) 78.8 % Critically high 43.0-75.0 [facility] Comment on above: Performed By: #### C BC #### [facility] [address] [place] [address] Dr. Alejandrina Feng Platelet mean volume (Bld) [Entitic vol] 8.8 fL Critically low 9.5-13.5 [facility] Comment on above: Performed By: #### C BC #### [facility] [address] [place] [address] Dr. Alejandrina Feng PLT 404 103/ul Normal 150-450 [facility] Comment on above: Performed By: #### C BC #### [facility] [address] [place] [address] Dr. Alejandrina Feng RBC 5.05 106/ul Normal 4.20-5.40 [facility] Comment on above: Performed By: #### C BC #### [facility] [address] [place] [address] Dr. Alejandrina Feng WBC 12.7 103/ul Critically high 4.0-11.0 [facility] Comment on above: Performed By: #### C BC #### [facility] [address] [place] [address] Dr. Alejandrina Feng PROF 14(COMP METB)on 022 Albumin [Mass/Vol] 3.6 g/dL Normal 3.4-5.0 [facility] Comment on above: Performed By: #### C MP, TSH #### [facility] [address] [place] [address] Dr. Alejandrina Feng Albumin/Globulin [Mass ratio] 0.8 {ratio} Normal [facility] Comment on above: Performed By: #### C MP, TSH #### [facility] [address] [place] [address] Dr. Alejandrina Feng ALP [Catalytic activity/Vol] 182 U/L Critically high 46-116 [facility] Comment on above: Performed By: #### C MP, TSH #### [facility] [address] [place] [address] Dr. Alejandrina Feng ALT [Catalytic activity/Vol] 29 U/L Normal 14-59 [facility] Comment on above: Performed By: #### C MP, TSH #### [facility] [address] [address] [address] Alejandrina Feng Anion gap [Moles/Vol] 13.4 mmol/L Normal [facility] Comment on above: Performed By: #### C MP, TSH #### [facility] [address] [address] [address] Alejandrina Feng AST [Catalytic activity/Vol] 22 U/L Normal 15-37 [facility] Comment on above: Performed By: #### C MP, TSH #### [facility] [address] [address] [address] Alejandrina Feng Bilirubin [Mass/Vol] 0.5 mg/dL Normal 0.2-1.0 [facility] Comment on above: Performed By: #### C MP, TSH #### [facility] [address] [address] [address] Alejandrina Feng Calcium [Mass/Vol] 9.3 mg/dL Normal 8.5-10.1 [facility] Comment on above: Performed By: #### C MP, TSH #### [facility] [address] [address] [address] Alejandrina Feng Chloride [Moles/Vol] 102 mmol/L Normal 98-107 [facility] Comment on above: Performed By: #### C MP, TSH #### [facility] [address] [address] [address] Alejandrina Feng CO2 [Moles/Vol] 26.2 mmol/L Normal 21.0-32.0 [facility] Comment on above: Performed By: #### C MP, TSH #### [facility] [address] [address] [address] Alejandrina Feng Creatinine [Mass/Vol] 0.94 mg/dL Normal 0.55-1.02 [facility] Comment on above: Performed By: #### C MP, TSH #### [facility] [address] [address] [address] Alejandrina Feng EGFR-AF GAMBIAN >60 Normal >=60 [facility] Comment on above: Performed By: #### C MP, TSH #### [facility] [address] [address] [address] Alejandrina Feng EGFR-NON AF GAMBIAN 59 mL/min/1.73m2 Critically low >=60 [facility] Comment on above: Performed By: #### C MP, TSH #### [facility] [address] [address] [address] Alejandrina Feng Globulin (S) [Mass/Vol] 4.3 g/dL Normal [facility] Comment on above: Performed By: #### C MP, TSH #### [facility] [address] [address] [address] Alejandrina Feng Glucose [Mass/Vol] 101 mg/dL Normal 74-106 [facility] Comment on above: Performed By: #### C MP, TSH #### [facility] [address] [address] [address] Alejandrina Feng Potassium [Moles/Vol] 4.6 mmol/L Normal 3.5-5.1 [facility] Comment on above: Performed By: #### C MP, TSH #### [facility] [address] [address] [address] Alejandrina Feng Protein [Mass/Vol] 7.9 g/dL Normal 6.4-8.2 [facility] Comment on above: Performed By: #### C MP, TSH #### [facility] [address] [address] [address] Alejandrina Feng Sodium [Moles/Vol] 137 mmol/L Normal 136-145 [facility] Comment on above: Performed By: #### C MP, TSH #### [facility] [address] [address] [address] Alejandrina Feng Urea nitrogen [Mass/Vol] 19.0 mg/dL Critically high 7.0-18.0 [facility] Comment on above: Performed By: #### C MP, TSH #### [facility] [address] [address] [address] Alejandrina Feng Urea nitrogen/Creatinine [Mass ratio] 20.2 mg/mg Normal [facility] Comment on above: Performed By: #### C MP, TSH #### [facility] [address] [place] [address] Dr. Alejandrina Feng TSHon 06-20-2022 TSH 0.854 uIU/mL Normal 0.358-3.740 [facility] Comment on above: Performed By: #### C MP, TSH #### [facility] [address] [place] [address] Dr. Alejandrina Feng Covid-19 PCR ([facility])on 02-23 SARS-CoV-2 (COVID-19) RNA JACKSON+probe Ql (Unsp spec) Not detected Normal NOT DETECTED [facility] Comment on above: Result Comment: When [...] for this test is supported by the [place] of Health and Human Service's declaration that [...] used). Performed By: #### C BC #### [facility] [address] [place] [address] Dr. Alejandrina Feng ELECTROLYTESon 03-09-2022 Anion gap [Moles/Vol] 14.8 mmol/L Normal [facility] Comment on above: Performed By: #### E LEC #### [facility] [address] [place] [address] Dr. Alejandrina Feng Chloride [Moles/Vol] 103 mmol/L Normal 98-107 [facility] Comment on above: Performed By: #### E LEC #### [facility] [address] [place] [address] Dr. Alejandrina Feng CO2 [Moles/Vol] 25.2 mmol/L Normal 21.0-32.0 [facility] Comment on above: Performed By: #### E LEC #### [facility] [address] [address] [address] Alejandrina Feng Potassium [Moles/Vol] 4.0 mmol/L Normal 3.5-5.1 [facility] Comment on above: Performed By: #### E LEC #### [facility] [address] [address] [address] Alejandrina Feng Sodium [Moles/Vol] 139 mmol/L Normal 136-145 [facility] Comment on above: Performed By: #### E LEC #### [facility] [address] [place] [address] Dr. Alejandrina Feng Covid-19 PCR (CVD[facility])on SARS-CoV-2 (COVID-19) RNA JACKSON+probe Ql (Unsp spec) Not detected Normal NOT DETECTED [facility] Comment on above: Result Comment: This test is not yet approved or cleared by the [place] FDA. When there are no FDA-approved or cleared tests available, and other criteria are met, FDA can make tests available under an emergency access mechanism called an Emergency Use Authorization (EUA). The EUA for this test is supported by the [place] of Health and Human Service's (HHS's) declaration [...] SARS-CoV-2. Performed By: #### C VDTBH #### [facility] [address] [address] [address] Alejandrina Feng BNPon 02-22-2022 Natriuretic peptide B (Bld) [Mass/Vol] 60.0 pg/mL Normal <=900.0 [facility] Comment on above: Performed By: #### P THINT #### [facility] [address] [place] [address] Dr. Alejandrina Feng CBC AUTO DIFFon 02-22-2022 BASO # 0.1 103/ul Normal 0.0-0.1 [facility] Comment on above: Performed By: #### C BC #### [facility] [address] [place] [address] Dr. Alejandrina Feng Basophils/100 WBC (Bld) 0.4 % Normal 0.2-2.0 [facility] Comment on above: Performed By: #### C BC #### [facility] [address] [place] [address] Dr. Alejandrina Feng EO # 0.2 103/ul Normal 0.0-0.7 [facility] Comment on above: Performed By: #### C BC #### [facility] [address] [place] [address] Dr. Alejandrina Feng Eosinophils/100 WBC (Bld) 1.4 % Normal 0.9-7.0 [facility] Comment on above: Performed By: #### C BC #### [facility] [address] [place] [address] Dr. Alejandrina Feng Erythrocyte distribution width (RBC) [Ratio] 13.3 % Normal 11.0-15.0 [facility] Comment on above: Performed By: #### C BC #### [facility] [address] [place] [address] Dr. Alejandrina Feng Hematocrit (Bld) [Volume fraction] 45.1 % Normal 36.0-48.0 [facility] Comment on above: Performed By: #### C BC #### [facility] [address] [place] [address] Dr. Alejandrina Feng Hemoglobin (Bld) [Mass/Vol] 14.4 g/dL Normal 12.0-16.0 [facility] Comment on above: Performed By: #### C BC #### [facility] [address] [place] [address] Dr. Alejandrina Feng IG # 0.05 10e3/ul Critically high 0.00-0.03 [facility] Comment on above: Performed By: #### C BC #### [facility] [address] [place] [address] Dr. Alejandrina Feng IG % 0.4 % Normal 0.0-0.5 [facility] Comment on above: Performed By: #### C BC #### [facility] [address] [place] [address] Dr. Alejandrina Feng LYMPH # 1.6 103/ul Normal 1.2-3.8 [facility] Comment on above: Performed By: #### C BC #### [facility] [address] [place] [address] Dr. Alejandrina Feng Lymphocytes/100 WBC (Bld) 11.2 % Critically low 20.5-60.0 [facility] Comment on above: Performed By: #### C BC #### [facility] [address] [place] [address] Dr. Alejandrina Feng MANUAL DIFF REQ NO Normal [facility] Comment on above: Performed By: #### C BC #### [facility] [address] [place] [address] Dr. Alejandrina Feng MCH (RBC) [Entitic mass] 28.0 pg Normal 26.7-34.0 [facility] Comment on above: Performed By: #### C BC #### [facility] [address] [place] [address] Dr. Alejandrina Feng MCHC (RBC) [Mass/Vol] 31.9 g/dL Normal 29.9-35.2 [facility] Comment on above: Performed By: #### C BC #### [facility] [address] [place] [address] Dr. Alejandrina Feng MCV (RBC) [Entitic vol] 87.6 fL Normal 81.0-99.0 [facility] Comment on above: Performed By: #### C BC #### [facility] [address] [place] [address] Dr. Alejanrdina Feng MONO # 0.6 103/ul Normal 0.3-0.8 [facility] Comment on above: Performed By: #### C BC #### [facility] [address] [place] [address] Dr. Alejandrina Feng Monocytes/100 WBC (Bld) 4.5 % Normal 1.7-12.0 [facility] Comment on above: Performed By: #### C BC #### [facility] [address] [place] [address] Dr. Alejandrina Feng NEUT # 11.4 103/ul Critically high 1.4-6.5 [facility] Comment on above: Performed By: #### C BC #### [facility] [address] [place] [address] Dr. Alejandrina Feng Neutrophils/100 WBC (Bld) 82.1 % Critically high 43.0-75.0 [facility] Comment on above: Performed By: #### C BC #### [facility] [address] [place] [address] Dr. Alejandrina Feng Platelet mean volume (Bld) [Entitic vol] 9.1 fL Critically low 9.5-13.5 [facility] Comment on above: Performed By: #### C BC #### [facility] [address] [place] [address] Dr. Alejandrina Feng PLT 363 103/ul Normal 150-450 [facility] Comment on above: Performed By: #### C BC #### [facility] [address] [place] [address] Dr. Alejandrina Feng RBC 5.15 106/ul Normal 4.20-5.40 [facility] Comment on above: Performed By: #### C BC #### [facility] [address] [place] [address] Dr. Alejandrina Feng WBC 13.9 103/ul Critically high 4.0-11.0 [facility] Comment on above: Performed By: #### C BC #### [facility] [address] [place] [address] Dr. Alejandrina Feng PROF 14(COMP METB)on 022 Albumin [Mass/Vol] 4.0 g/dL Normal 3.4-5.0 [facility] Comment on above: Performed By: #### P THINT #### [facility] [address] [place] [address] Dr. Alejandrina Feng Albumin/Globulin [Mass ratio] 0.8 {ratio} Normal [facility] Comment on above: Performed By: #### P THINT #### [facility] [address] [address] [address] Alejandrina Feng ALP [Catalytic activity/Vol] 200 U/L Critically high 46-116 [facility] Comment on above: Performed By: #### P THINT #### [facility] [address] [place] [address] Dr. Alejandrina Feng ALT [Catalytic activity/Vol] 29 U/L Normal 14-59 [facility] Comment on above: Performed By: #### P THINT #### [facility] [address] [place] [address] Dr. Alejandrina Feng Anion gap [Moles/Vol] 12.2 mmol/L Normal [facility] Comment on above: Performed By: #### P THINT #### [facility] [address] [place] [address] Dr. Alejandrina Feng AST [Catalytic activity/Vol] 25 U/L Normal 15-37 [facility] Comment on above: Performed By: #### P THINT #### [facility] [address] [place] [address] Dr. Alejandrina Feng Bilirubin [Mass/Vol] 0.4 mg/dL Normal 0.2-1.0 [facility] Comment on above: Performed By: #### P THINT #### [facility] [address] [address] [address] Alejandrina Feng Calcium [Mass/Vol] 9.5 mg/dL Normal 8.5-10.1 [facility] Comment on above: Performed By: #### P THINT #### [facility] [address] [place] [address] Dr. Alejandrina Feng Chloride [Moles/Vol] 101 mmol/L Normal 98-107 [facility] Comment on above: Performed By: #### P THINT #### [facility] [address] [address] [address] Alejandrina Feng CO2 [Moles/Vol] 25.8 mmol/L Normal 21.0-32.0 [facility] Comment on above: Performed By: #### P THINT #### [facility] [address] [address] [address] Alejandrina Feng Creatinine [Mass/Vol] 0.69 mg/dL Normal 0.55-1.02 [facility] Comment on above: Performed By: #### P THINT #### [facility] [address] [address] [address] Alejandrina Feng EGFR-AF GAMBIAN >60 Normal >=60 [facility] Comment on above: Performed By: #### P THINT #### [facility] [address] [address] [address] Alejandrina Feng EGFR-NON AF GAMBIAN >60 Normal >=60 [facility] Comment on above: Performed By: #### P THINT #### [facility] [address] [address] [address] Alejandrina Feng Globulin (S) [Mass/Vol] 4.8 g/dL Normal [facility] Comment on above: Performed By: #### P THINT #### [facility] [address] [address] [address] Alejandrina Feng Glucose [Mass/Vol] 96 mg/dL Normal 74-106 [facility] Comment on above: Performed By: #### P THINT #### [facility] [address] [address] [address] Alejandrina Feng Potassium [Moles/Vol] 4.0 mmol/L Normal 3.5-5.1 [facility] Comment on above: Performed By: #### P THINT #### [facility] [address] [address] [address] Alejandrina Feng Protein [Mass/Vol] 8.8 g/dL Critically high 6.4-8.2 [facility] Comment on above: Performed By: #### P THINT #### [facility] [address] [address] [address] Alejandrina Feng Sodium [Moles/Vol] 135 mmol/L Critically low 136-145 Th e [facility] Comment on above: Performed By: #### P THINT #### [facility] [address] [address] [address] Alejandrina Feng Urea nitrogen [Mass/Vol] 18.0 mg/dL Normal 7.0-18.0 [facility] Comment on above: Performed By: #### P THINT #### [facility] [address] [address] [address] Alejandrina Feng Urea nitrogen/Creatinine [Mass ratio] 26.1 mg/mg Normal [facility] Comment on above: Performed By: #### P THINT #### [facility] [address] [place] [address] Dr. Alejandrina Feng TROPONIN, HIGH SENSITIVITYon 02-22-2022 HSTROP 7.4 pg/mL Normal 4.0-51.3 [facility] Comment on above: Result Comment: CUT- OFF POINTS HAVE BEEN ESTABLISHED BASED ON THE FOURTH UNIVERSAL DEFINITIONS OF MYOCARDIAL INFARCTION. THE UPPER REFERENCE LIMIT (URL) OF TROPONIN, DEFINED THE 99TH PERCENTILE OF cTnI DISTRIBUTION IN A REFERENCE POPULATION, HAS BEEN CONFIRMED THE DECISION THRESHOLD FOR [place] DIAGNOSIS. Performed By: #### H STROPN #### [facility] [address] [place] [address] Dr. Alejandrina Feng HSTROP 6.4 pg/mL Normal 4.0-51.3 [facility] Comment on above: Result Comment: CUT- OFF POINTS HAVE BEEN ESTABLISHED BASED ON THE FOURTH UNIVERSAL DEFINITIONS OF MYOCARDIAL INFARCTION. THE UPPER REFERENCE LIMIT (URL) OF TROPONIN, DEFINED THE 99TH PERCENTILE OF cTnI DISTRIBUTION IN A REFERENCE POPULATION, HAS BEEN CONFIRMED THE DECISION THRESHOLD FOR [place] DIAGNOSIS. Performed By: #### P THINT #### [facility] [address] [place] [address] Dr. Alejandrina Feng XR CHEST 1 Von [...] by: EVERETT ERNANDEZ Date: 2022-02-22 13:20 Normal [facility] OSMOLALITYon 02-02-2022 Osmolality [Osmolality] 284 mosm/kg Normal 280-301 [facility] Comment on above: Performed By: #### P THINT #### [facility] [address] [place] [address] Dr. Alejandrina Feng OSMOLALITY URINEon 2 Osmolality, Urine 629 mOsmol/kg Normal [facility] Comment on above: Result Comment: 24 h r : 300 - 900 Random: 50 - 1400 After 12hr fluid restriction: >850 Performed By: #### O SMOU #### [facility] [address] [place] [address] Dr. Alejandrina Feng PTH INTACTon 02-01-2022 PTH, Intact 42 pg/mL Normal 15-65 [facility] Comment on above: Performed By: #### P THINT #### [facility] [address] [place] [address] Dr. Alejandrina Feng PROF CHEM 8 (BAS METB)on Anion gap [Moles/Vol] 12.7 mmol/L Normal [facility] Comment on above: Performed By: #### P THINT #### [facility] [address] [place] [address] Dr. Alejandrina Feng Calcium [Mass/Vol] 8.7 mg/dL Normal 8.5-10.1 [facility] Comment on above: Performed By: #### P THINT #### [facility] [address] [place] [address] Dr. Alejandrina Feng Chloride [Moles/Vol] 100 mmol/L Normal 98-107 [facility] Comment on above: Performed By: #### P THINT #### [facility] [address] [place] [address] Dr. Alejandrina Feng CO2 [Moles/Vol] 27.7 mmol/L Normal 21.0-32.0 [facility] Comment on above: Performed By: #### P THINT #### [facility] [address] [address] [address] Alejandrina Feng Creatinine [Mass/Vol] 0.65 mg/dL Normal 0.55-1.02 [facility] Comment on above: Performed By: #### P THINT #### [facility] [address] [address] [address] Alejandrina Feng EGFR-AF GAMBIAN >60 Normal >=60 [facility] Comment on above: Performed By: #### P THINT #### [facility] [address] [address] [address] Alejandrina Feng EGFR-NON AF GAMBIAN >60 Normal >=60 [facility] Comment on above: Performed By: #### P THINT #### [facility] [address] [address] [address] Alejandrina Feng Glucose [Mass/Vol] 103 mg/dL Normal 74-106 [facility] Comment on above: Performed By: #### P THINT #### [facility] [address] [place] [address] Dr. Alejandrina Feng Potassium [Moles/Vol] 3.4 mmol/L Critically low 3.5-5.1 [facility] Comment on above: Performed By: #### P THINT #### [facility] [address] [address] [address] Alejandrina Feng Sodium [Moles/Vol] 137 mmol/L Normal 136-145 [facility] Comment on above: Performed By: #### P THINT #### [facility] [address] [place] [address] Dr. Alejandrina Feng Urea nitrogen [Mass/Vol] 15.0 mg/dL Normal 7.0-18.0 [facility] Comment on above: Performed By: #### P THINT #### [facility] [address] [address] [address] Alejandrina Feng Urea nitrogen/Creatinine [Mass ratio] 23.1 mg/mg Normal [facility] Comment on above: Performed By: #### P THINT #### [facility] [address] [place] [address] Dr. Alejandrina Feng SODIUM RANDOM URINEon 2021 Sodium (U) [Moles/Vol] 74 mmol/L Normal 30-90 [facility] Comment on above: Performed By: #### N AU #### [facility] [address] [place] [address] Dr. Alejandrina Feng TSHon 01-31-2022 TSH 0.791 uIU/mL Normal 0.358-3.740 [facility] Comment on above: Performed By: #### P THINT #### [facility] [address] [place] [address] Dr. Alejandrina Feng TSH RANGE SEE BELOW Normal [facility] Comment on above: Result Comment: <0.3 4 UIU/ml HYPERTHYROID 0.34-5.60 UIU/ml EUTHYROID >5.60 UIU/ml HYPOTHYROID Performed By: #### P THINT #### [facility] [address] [place] [address] Dr. Alejandrina Feng Vital Signs Date Time Vital Sign Value Performing Clinician Facility 10-09-2023 10:00-0500 Body height 162.56 cm Segun Kingsley Other [facility] Other 10-09-2023 10:00-0500 Body mass index (BMI) [Ratio] 25.81 kg/m2 Segun Kingsley Other [facility] Other 10-09-2023 10:00-0500 Body weight 68.22 kg Segun Kingsley Other [facility] Other 10-09-2023 10:00-0500 Diastolic blood pressure 83 mm[Hg] Segun [employer] Other [employer] Other 10-09-2023 10:00-0500 Respiratory rate 12 /min Segun Kingsley Other [facility] Other 10-09-2023 10:00-0500 Systolic blood pressure 126 mm[Hg] Segun Ball Other [facility] [facility] Other 09-19-2023 13:45-0500 Body height 162.56 cm Segun Ball Other [facility] Other 09-19-2023 13:45-0500 Body mass index (BMI) [Ratio] 26.02 kg/m2 Segun Ball Other [facility] Other 09-19-2023 13:45-0500 Body weight 68.77 kg Segun Ball Other [facility] [facility] Other 09-19-2023 13:45-0500 Diastolic blood pressure 79 mm[Hg] Segun Ball Other [facility] [facility] Other 09-19-2023 13:45-0500 Respiratory rate 12 /min Segun Ball Other [facility] [facility] Other 09-19-2023 13:45-0500 Systolic blood pressure 123 mm[Hg] Segun Ball Other [facility] Other 04-10-2023 11:00-0400 Body height 162.56 cm Segun Ball Other [facility] [facility] Other 04-10-2023 11:00-0400 Body mass index (BMI) [Ratio] 26.29 kg/m2 Segun Ball Other [facility] [facility] Other 04-10-2023 11:00-0400 Body weight 69.49 kg Segun Ball Other [facility] [facility] Other 04-10-2023 11:00-0400 Diastolic blood pressure 74 mm[Hg] Segun Ball Other [facility] Other 04-10-2023 11:00-0400 Respiratory rate 12 /min Segun Ball Other [facility] [facility] Other 04-10-2023 11:00-0400 Systolic blood pressure 108 mm[Hg] Segun Ball Other [facility] [facility] Other 01-25-2023 12:30-0400 Body height 162.56 cm Segun Ball Other [facility] Other 01-25-2023 12:30-0400 Body mass index (BMI) [Ratio] 26.05 kg/m2 Segun Ball Other [facility] Other 01-25-2023 12:30-0400 Body weight 68.86 kg Segun Ball Other [facility] [facility] Other 01-25-2023 12:30-0400 Diastolic blood pressure 81 mm[Hg] Segun Ball Other [facility] [facility] Other 01-25-2023 12:30-0400 Respiratory rate 12 /min Segun Ball Other [facility] Other 01-25-2023 12:30-0400 Systolic blood pressure 119 mm[Hg] Segun Ball Other [facility] Other 12-06-2022 11:00-0400 Body height 162.56 cm Segun Ball Other [facility] Other 12-06-2022 11:00-0400 Body mass index (BMI) [Ratio] 25.98 kg/m2 Segun Ball Other [facility] Other 12-06-2022 11:00-0400 Body weight 68.68 kg Segun Sancho Other [facility] [facility] Other 12-06-2022 11:00-0400 Diastolic blood pressure 74 mm[Hg] Segun Sancho Other [facility] [facility] Other 12-06-2022 11:00-0400 Respiratory rate 16 /min Segun Sancho Other [employer] Other 12-06-2022 11:00-0400 Systolic blood pressure 117 mm[Hg] Segun Sancho Other [employer] Other 07-13-2022 13:16-0400 Blood Pressure Location NOE SVITLANA [facility] 07-13-2022 13:16-0400 Diastolic blood pressure 88 mm[Hg] NOE SVITLANA [facility] 07-13-2022 13:16-0400 Heart rate 79 /min NOE SVITLANA [facility] 07-13-2022 13:16-0400 Respiratory rate 16 /min ONE SVITLANA [facility] 07-13-2022 13:16-0400 Systolic blood pressure 138 mm[Hg] NOE SVITLANA [facility] Encounters Encounter Date Encounter Type Care Provider Facility Start: 02-26-2024 ambulatory Enrique Boss ty:[facility] Start: 10-10-2023 End: 10-10-2023 ambulatory Segun Sancho Other [employer] Other Start: 10-10-2023 Telephone encounter Segun Kingsley [facility] Start: 10-09-2023 End: 10-09-2023 ambulatory Segun Ball Other [employer] Other Start: 10-09-2023 Office outpatient vi sit 25 minutes Segun Ball [facility] Start: 09-22-2023 End: 09-22-2023 ambulatory Segun Ball Other [employer] Other Start: 09-22-2023 Telephone encounter Segun Ball [facility] Start: 09-19-2023 End: 09-19-2023 ambulatory Segun Ball Other [employer] Other Start: 09-19-2023 Office outpatient vi sit 15 minutes Segun Ball [facility] Start: 09-13-2023 Telephone encounter Segun Ball [facility] Start: 09-13-2023 End: 09-13-2023 [facility] [place] [employer] Other Start: 07-19-2023 End: 07-19-2023 ambulatory Segun Ball Other [employer] Other Start: 07-19-2023 Office outpatient vi sit 15 minutes Segun Ball [facility] Start: 06-20-2023 End: 06-20-2023 ambulatory Segun Ball Other [employer] Other Start: 06-20-2023 Telephone encounter Segun Ball [facility] Start: 04-13-2023 End: 04-13-2023 ambulatory Segun Ball Other [employer] Other Start: 04-13-2023 Telephone encounter Segun Ball [facility] Start: 04-10-2023 End: 04-10-2023 ambulatory Segun Ball Other [employer] Other Start: 04-10-2023 Encounter for genera l adult medical examination without abnormal findings Segun Ball [facility] Start: 04-10-2023 Periodic preventive med est patient 65yrs& older Segun Sancho [facility] Start: 02-13-2023 End: 02-14-2023 ambulatory Enrique VÁSQUEZ Facility: [facility] Start: 01-25-2023 End: 01-25-2023 ambulatory Segun Kingsley Other [employer] Other Start: 01-25-2023 Office outpatient vi sit 15 minutes Segun Kingsley [facility] Start: 01-20-2023 End: 01-21-[address] ENRIQUE VÁSQUEZ . Facility:[facility] Start: 12-06-2022 End: 12-06-2022 ambulatory Segun Kingsley Other [employer] Other Start: 12-06-2022 Office outpatient vi sit 25 minutes Segun Kingsley [facility] Start: 10-27-2022 End: 10-28-[address] ENRIQUE VÁSQUEZ . Facility:[facility] Start: 08-26-2022 End: 08-27-[address] ELOINA DUMONT Facility:[facility] Start: 07-13-2022 End: 07-14-2022 ambulatory Jackson Bach Facility:[facility] Start: 07-13-2022 End: 07-13-2022 Patient encounter procedure NOE SHANE [facility] Start: 07-06-2022 End: 07-07-[address] SEGUN KINGSLEY Facility:[facility] Start: 06-20-2022 End: 06-21-[address] SEGUN KINGSLEY Facility:[facility] Start: 04-01-2022 Adult health examination Segun Kingsley Other [employer] Other Start: 03-11-2022 End: 03-11-[address] SEGUN KINGSLEY Facility:[facility] Start: 03-09-2022 End: 03-10-[address] ENRIQUE VÁSQUEZ . Facility:[facility] Start: 03-02-2022 End: 03-02-[address] SEGUN KINGSLEY Facility:[facility] Start: 02-22-2022 End: 02-22-[address] SEGUN KINGSLEY Facility:[facility] Start: 01-31-2022 End: 02-01-[address] [...] (incl. purified surface antigen) Segun Sancho Other [employer] Other 06-22-2022 influenza, high dose seasonal, preservative-free Segun Sancho Other [employer] Other 04-01-2022 pneumococcal conjuga te vaccine, 13 valent NOE SHANE [facility] 09-01-2021 COVID-19 Vaccine Pfi zer - Documentation Purposes Only Segun Kingsley Other [employer] Other 09-01-2021 SARS-CoV-2 (COVID-19 ) Ad26 vaccine, recombinant NOE SHANE [facility] 07-19-2021 influenza virus vaccine, split virus (incl. purified surface antigen) Segun Kingsley Other [employer] Other 05-26-2021 influenza virus vaccine, unspecified formulation NOE SHANE [facility] 01-05-2021 diphtheria, tetanus toxoids and acellular pertussis vaccine, unspecified formulation Segun Kingsley Other [place] [email or web address] Other 01-05-2021 tetanus toxoid, redu agustin diphtheria toxoid, and acellular pertussis vaccine, adsorbed NOECHAVA SHANE [facility] 12-25-2020 COVID-19, mRNA, LNP- S, PF, 30 mcg/0.3 mL dose NOE SVITLANA [facility] Comment on above: Reason for Medicatio n: Prophylaxis 12-04-2020 COVID-19, mRNA, LNP- S, PF, 30 mcg/0.3 mL dose NOE SVITLANA [facility] Comment on above: Reason for Medicatio n: Prophylaxis 08-14-2020 pneumococcal polysaccharide vaccine, 23 valent Segun Kingsley Other [place] [email or web address] Other 08-11-2020 influenza virus vaccine, split virus (incl. purified surface antigen) Segun Kingsley Other [employer] Other 08-10-2020 influenza virus vaccine, unspecified formulation NOE SHANE [facility] 07-25-2018 influenza virus vaccine, split virus (incl. purified surface antigen) Segun Kingsley Other [employer] Other 07-25-2018 influenza virus vaccine, unspecified formulation NOE SHANE [facility] 10-12-2017 influenza virus vaccine, split virus (incl. purified surface antigen) Segun Ball Other [employer] Other Payers Date Payer Category Payer Unknown [id number] 2. [id number] 1955 Unknown [id number] 2.16.84 [id number] 1954 Unknown [id number] 2.16.84 [id number] 1954 Unknown [id number] 2.16.84 [id number] 1954 Unknown [id number] 2.16.84 [id number] 1954 Unknown [id number] 2.16.84 [id number] 1954 Unknown [id number] 2.16.84 0.1.209464.3.579.2.593 1954 Unknown [id number] 2.16.84 0.1.059603.3.579.2.593 1954 Unknown [id number] 2.16.84 0.1.782482.3.579.2.593 1954 Unknown [id number] 2.16.84 0.1.896817.3.579.2.593 1954 Unknown [id number] 2.16.84 0.1.279774.3.579.2.593 1954 Unknown [id number] 2.16.84 0.1.948829.3.579.2.593 1954 Unknown [id number] 2.16.8 [id number] 1954 Unknown [id number] 2.16.8 [id number] 1954 Unknown [id number] 2.16.840 .[id number] Social History Date Type Detail Facility Start: 07-13-2022 Tobacco smoking status Never s moked tobacco (finding) [facility] Tobacco smoking status Never [facility] Sex Assigned At Female [facility] Functional Status Date Assessment Result Facility 07-13-2022 Functional Status N/A [facility] Clinical Notes 07-13-2022 to 10-10-2023 Note Date & Type Note Facility 10-10-2023 Evaluation note Encounter Date Diagnosis Assessment Notes Sep, COVID- 19 (ICD-1 0 - U07.1) [employer] Other 01-15-2024 Evaluation note* Encounter Date Diagnosis [...] interruption. Instructed to avoid d/c meds abruptly [employer] Other 12-26-2023 Evaluation note* Encounter Date Diagnosis [...] needed - XR to r/o compression fx [employer] Other 12-26-2023 Evaluation note* Encounter Date Diagnosis [...] needed - XR to r/o compression fx [employer] Other 12-20-2023 Evaluation note* Encounter Date Diagnosis Assessment Notes Treatment Notes Treatment Clinical Notes Aug, Nontoxic single thyroid nodule (ICD-10 - E04.1) Serial US w/ stable size and appearance. Referred to ENT w/ no further scans recommended. [employer] Other 10-25-2023 Evaluation note* Encounter Date Diagnosis [...] Amlodipine to 5mg qd while taking Paxlovid [employer] Other 07-17-2023 Evaluation note* Encounter Date Diagnosis [...] and yearly mammogram - due in Jun [employer] Other 05-03-2023 Evaluation note* Encounter Date Diagnosis [...] pneumonia Due for COVID booster and Shingrix [employer] Other 03-14-2023 Evaluation note* Encounter Date Diagnosis [...] or drinking prior to bedtime. Continue PPI [employer] Other 10-19-2022 Hospital Discharge instructions Patient Education 07/13/2022 13:30:11 Kidney Stones, Yome-hw-Xuoh Kidney Stones Kidney stones are rock-like masses [...] Follow these instructions at home: Medicines Take pqaa-wer-koyvfif and prescription medicines only as told by [...] 02/27/2009 Document Revised: 01/28/2020 Document Reviewed: 01/28/2020 [employer] Patient Education 2019 [place]. Follow Up Care 10/18/2021 12:21:40 With:SVITLANA IBARRA, NOE Anderson, URL Address: [address] [place] [address] [phone] When: Unknown [facility] [email or web address] 10-19-2022 Evaluation + Plan note Future Scheduled Tests Laboratory* Basic Metabolic Panel 07/13/22 [facility] [email or web address] evaluation noteNo [facility] [email or web address] Other History general Narrative - Reported* Type [...] GENEVA/BSO 2010 Hospitalization History SEE SURGICAL HX [place] [email or web address] Other History general Narrative - [place] [email or web address] Other Hospital course Narrative No data available for this section [facility] [email or web address] progress note No data available for this section [facility] [email or web address] reason for referral (narrative)* Reason Referral for treatme nt of chronic low back pain Diagnosis 1 Acute bilateral low back pain without sciatica (M54.50) Diagnosis 2 Lumbar spondylosis ( M47.816) Referral Organization [facility] Becca rivas Referring Provider First Name Segun Referring Provider Last Name Sancho Referring Provider Specialty Internal Me dicine Referred Organization [facility] Referred Address [address] [place], [place],[address] Referred Provider Specialty Pain Medicin e Referral [...] for injections. Clinical Notes Include XR results [employer] Other Summary Purpose Family History No Family History Records FoundNo Family History Records FoundNo Family History Records Found Advance Directives No Advanced Directives Records FoundNo Advanced Directives Records FoundNo Advanced Directives Records Found Additional Source Comments Patient Care team informatio n (unrecognized section and content) Personnel Name: SEGUN KINGSLEY DO Address: Address: [address], [place], [place] [address] REASON FOR VISIT (unrecogniz ed section and content) 3 month Follow upPossible Sp rondar [id number] COVID +No Informationback painback painXR results6 monthCOVID + INFORMATION SOURCE (unrecogn ized section and content) DATE CREATED AUTHOR 01/27/[address] [facility] DATE CREATED AUTHOR AUTHOR'S ORGANIZ ATION 09/13/2023 [facility] DATE CREATED AUTHOR AUTHOR'S ORGANIZ ATION 09/14/2023 [facility] dical [facility] EPIC FOR RECORDS PERTAINING TO [...] BE BASED ON THE PRIMARY CLINICAL RECORDS. [facility] provides no warranty or guarantee of the accuracy or completeness of information in this document.
--- NOTE | 2023-10-26 10:05 | P.CN_ITS ---
Consult Note: HPI Data of Consult Patient: known to practice within the last 3 years Requesting Physician: Concetta Sharma NP Primary Care Provider: Segun Kingsley, Consult Narrative Reason for consult: f/u Narrative: Elda Lee a pleasant 68 year old female presents for evaluation and management of chronic low back pain. Recently underwent right L4-5 L5-S1 facet medial branch block #1 with 80% improvement in pain and functional improvement immediately following and hours after the procedure. Patient continues to have moderate to severe pain that impacts functional ability and daily ADLs. Pain today 4/10, increases to 8/10. Denies numbness tingling weakness. Patient would like to discuss proceeding with right L4-5 L5-S1 facet medial branch thermal RFA cc:: CC: Concetta Sharma NP Review of Systems ROS Status of ROS 10 or more systems reviewed and unremark able except as noted in history and below Musculoskeletal Reports: back pain [facility] Medical History (Updated 10/26/23 @ 10:20 by Concetta Sharma NP) Thyroid nodule ?E04.1 - Nontoxic single thyroid nodule (ICD-10) Low back pain ?M54.50 - Low back pain, unspecified (ICD-10) Osteoarthritis ?M19.90 - Unspecified osteoarthritis, unspecified site (ICD-10) Heartburn ?R12 - Heartburn (ICD-10) Kidney stones ?N20.0 - Calculus of kidney (ICD-10) Hypertension ?I10 - Essential (primary) hypertension (ICD-10) Surgical History H/O: hysterectomy ?Z90.710 - Acquired absence of both cervix and uterus (ICD-10) Meds Home Medications and Allergies Home Medications Medication Instructions Recorded Confirmed Type amlodipine 10 mg tablet 10 mg PO DAILY 10/04/23 10/17/23 History atorvastatin 40 mg tablet 40 mg PO DAILY 10/04/23 10/17/23 History baclofen 10 mg tablet 5 mg PO DAILY 10/04/23 10/17/23 History fluoxetine 40 mg capsule 40 mg PO DAILY 10/04/23 10/17/23 History hydrochlorothiazide 25 mg tablet 25 mg PO DAILY 10/04/23 10/17/23 History potassium chloride 20 mEq oral 50 meq PO DAILY 10/04/23 10/17/23 History packet (Klor-Con) temazepam 15 mg capsule 15 mg PO .QHS 10/04/23 10/17/23 History Allergies Allergy/AdvReac Type Severity Reaction Status Date / Time No Known Drug Allergies Allergy Verified 10/17/23 09:07 Exam Constitutional Documenting provider has reviewed patient's vital signs: yes Common normals: no apparent distress, oriented x3, healthy appearing, alert and well nourished General appearance: cooperative HENMT Common normals: normocephalic, hearing grossly normal bilaterally and moist oral mucous membranes Head and scalp: normocephalic Eye Common normals: PERRL Pupil: PERRL Neck & C-Spine Common normals: full ROM General: normal visual inspection Chest Common normals: inspection of chest normal Respiratory Common normals: normal respiratory effort, no retractions and no use of accessory muscles Back & Pelvis Lumbar spine/lower back: ROM limited, pain with ROM and straight leg raise negative bilaterally Sacroiliac joints: SI joints normal Extremity Common normals: normal to inspection and full ROM Neuro Common normals: oriented x3, CN's II-XII intact bilaterally, moves all extremities, no focal motor deficits, no sensory deficits noted, deep tendon reflexes 2+ bilaterally and gait normal Sensorium/orientation: alert Motor exam: strength 5/5 throughout and no movement abnormalities noted Psych Common normals: mental status grossly normal, thought process normal, cooperative, affect normal, speech normal and activity/motor behavior normal Speech: normal speech Thought process: normal thought process Results Additional Findings Additional findings: I have checked an [place] report on this patient today and there are no aberrancies noted in the prescribing history.?? A drug screen was completed and reviewed within the last year, and if there has not been a drug screen completed we ordered one today to monitor higher risk, state monitored pain medication use. As part of providing excellent, safe, comprehensive care, the following was completed at our patient's visit: 1. A medication reconciliation and review to ensure accurate knowledge of current/active medications, including asking our patients to inform us about any [id number] medications or herbal remedies/nutritional supplements/alternative remedies. 2. A review to specifically ensure our patients have had annual screening for: elevated body mass index (BMI), tobacco use, screening for depression, and s creening for unhealthy alcohol use. When screening is concerning, patients are provided with education and the specific recommendation to discuss the concerning health issue and treatment options with their primary care provider. Assessment and Plan Assessment and Plan (1) Lumbar spondylosis: Assessment and Plan: The patient has had over 3 months of moderate to severe low back pain with functional impairment and inadequate response to conservative care including NSAIDS (unless there are contraindication such as concurrent blood thinners), multiple oral or topical pain medications, and home exercise program/physical therapy.? Patient has completed >6 weeks of guided home exercise program and/or formal physical therapy program without relief of their symptoms.? I have reviewed the imaging of the lumbar spine and no red flags were identified.? The imaging reveals radiographic findings consistent with lumbar spondylosis We discussed the risks and benefits of the procedure with the patient, and we are NOT planning on using sedation as outlined in the guidelines from Medicare unless there is a documented reason that sedation would be strongly recommended.?? ?The procedure will be completed with fluoroscopic guidance.? (2) Low back pain: Plan right L4-5 L5-S1 facet medial branch thermal RFA under fluoroscopy with 10mg PO valium f/u 1 month after procedure
== END 2023-10-26 09:42 | disposition home or self-care (01) ==
PROVIDERS: PCP Internal Medicine; Visit Provider Nurse Practitioner
DX: M47.816 Spondylosis without myelopathy or radiculopathy, lumbar region (principal); M54.50 Low back pain, unspecified
CPT/HCPCS: G0463

== ENCOUNTER 2023-10-31 07:46 | Day surgery (SDC) | payer OTHER, SELFPAY ==
--- OUTSIDE RECORDS SUMMARY | 2023-10-31 07:49 | XMS_ITS | CCD ---
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 Name Role Phone SEGUN KINGSLEY Primary Care [...] or physicia Propensity to adverse reactions Comment:Done NMRKT Other (1 source) No Known Medication Allergies; Translations: [No Known Medication Allergies] Propensity to adverse reactions (disorder) [facility] Repository Medications Current Medications Medication Drug Class(es) Dates Sig (Normalized) Sig (Original) acetaminophen 500 mg oral tablet (1 source) Start: 05-05-2021 take 500 mg by mouth twice daily Tylenol 500 mg, Oral, BID Start Date: 05/05/21 Status: Ordered [id number] actuat albuterol 0.09 mg/actuat metered dose [...] Daily, # 90 tab(s), Refills(s) 3, Pharmacy: [facility] 1155, 163, cm, 10/18/21 11:50:00 EST, Height/Length [...] Start: 06-01-2023 take 1 capsule by mo [facility] at bedtime as needed Start: 12-01-2022 [...] 6 Episodic Other aftercare (1 source) Other nut grinder (current) drug therapy; Translations: [OTH ASSISTED CURRENT DRUG THERAPY] Onset: 2 Episodic Other [...] Results Test Name Value Interpretation Reference Range [facility] it Physician Orderon 09-12-2023 Physician Order [id number] .00TIFF [facility] RAD - MISCon 09-10-2023 RAD - MISC [id number] .00TIFF [facility] Lab Reportson 08-22-2023 Lab Reports [id number]. 00TIFF [facility] Reminderson 08-22-2023 Reminders - From: Selma Allen [...] clinisync. Pt states she is going to [facility] today to have lytes drawn. From: NOE SHANE PA-C (EU - Pending Results) To: EU - Clinical; Sent: 08/22/2023 10:52:27 EST Show up: 08/22/2023 10:51:00 EST Subject: RE: Electrolye panel advise pt electrolytes look good. potassium is slightly lower than earlier this year but still within normal range. would recommend she increase po intake of potassium-rich foods. pt. notified about lab work Normal [facility] Patient Educationon 02-14-20 Patient Education Nephrology [...] Spinach (cooked), rhubarb, beets, sweet potatoes, and Nauruan chard. ? Peanuts. ? Potato chips, venezuelan fries, and baked potatoes with skin on. ? Nuts and nut products. ? Chocolate. ? If you regularly take a diuretic medicine, make sure to eat at least 1 or 2 servings of fruits or vegetables that are high in potassium each day. These include: ? Avocado. ? Banana. ? [place], prune, carrot, or tomato juice. ? Baked [...] fish oil, or vitamin B6. ? Take sxgr-tjb-xldqpui and prescription medicines only as told by your health care provider. These include supplements. What foods should I limit? Limit your in (more content not included)... Normal [facility] Urology Office/Clinic Noteon 02-13-2023 Urology Office/Clinic [...] [facility] [address], [place] [address]- Additional Instructions: 1 yr KUB with OV, [...] History Arthritis: Mother (more content not included)... [facility] Comment on above: Result Comment: Elec tronically Signed By: Enrique VÁSQUEZ MD\.br\Date and Time Signed: 02/13/23 15:14 EDT\.br\Electronically Co-Signed By: Selma Allen\.br\Date and Time Co-Signed: 02/13/23 15:12 EDT RAD - MISCon 01-23-2023 RAD - MISC [id number] .00CD:127 Normal [facility] XR KUB 1 VIEWon 01-20-2023 XR [...] by: EVERETT ERNANDEZ Date: 2023-01-20 11:11 Normal [facility] Lab Reportson 10-31-2022 Lab Reports [id number] .00CD:127 Normal [facility] Physician Orderon 10-28-2022 Physician Order [id number] .00CD:127 Normal [facility] ELECTROLYTESon 10-27-2022 Anion gap [Moles/Vol] 12.4 mmol/L Normal [facility] Comment on above: Performed By: #### P THINT #### [facility] [address] [address] [address] Alejandrina Feng Chloride [Moles/Vol] 102 mmol/L Normal 98-107 [facility] Comment on above: Performed By: #### P THINT #### [facility] [address] [address] [address] Alejandrina Feng CO2 [Moles/Vol] 28.5 mmol/L Normal 21.0-32.0 [facility] Comment on above: Performed By: #### P THINT #### [facility] [address] [address] [address] Alejandrina Feng Potassium [Moles/Vol] 3.9 mmol/L Normal 3.5-5.1 [facility] Comment on above: Performed By: #### P THINT #### [facility] [address] [address] [address] Alejandrina Feng Sodium [Moles/Vol] 139 mmol/L Normal 136-145 [facility] Comment on above: Performed By: #### P THINT #### [facility] [address] [place] [address] Dr. Alejandrina Feng US THYROIDon 08-29-2022 US [...] thyroid stable. TR 3 nodule TI-RADS: The [employer] TI-RADS committee's white paper recommendations for thyroid lesions classified as TR3 (mildly suspicious) are listed below: > 1.5 cm. Follow-up ultrasound in 1, 3, and 5 years. > 2.5 cm. FNA. J. Am Jose Radiol 2017;14:587-595. Electronically authenticated by: EVERETT ERNANDEZ Date: 2022-08-29 07:19 Normal [facility] XR KUB 1 VIEWon 07-14-2022 XR KUB [...] by: JACKSON BACH Date: 2022-07-14 06:26 Normal [facility] ELECTROLYTESon 07-13-2022 Anion gap [Moles/Vol] 9.0 mmol/L Normal [facility] Comment on above: Performed By: #### E LEC #### [facility] [address] [address] [address] Alejandrina Feng Chloride [Moles/Vol] 101 mmol/L Normal 98-107 [facility] Comment on above: Performed By: #### E LEC #### [facility] [address] [address] [address] Alejandrina Feng CO2 [Moles/Vol] 27.5 mmol/L Normal 21.0-32.0 [facility] Comment on above: Performed By: #### E LEC #### [facility] [address] [address] [address] Alejandrina Feng Potassium [Moles/Vol] 3.5 mmol/L Normal 3.5-5.1 [facility] Comment on above: Performed By: #### E LEC #### [facility] [address] [address] [address] Alejandrina Feng Sodium [Moles/Vol] 134 mmol/L Critically low 136-145 [facility] Comment on above: Performed By: #### E LEC #### [facility] [address] [address] [address] Alejandrina Feng MG MAMM SCREEN 3D TUSHAR CADon 07-06-2022 MG MAMM SCREEN 3D TUSHAR CAD Patient: MIK CORONA Exam Date: 07/06/2022 : 1955 Gender:F Ordering : DR SEGUN KINGSLEY D.O. Admission #: [id number] Family : Order #: [id number] CLICK HERE TO VIEW EXAM RADIOLOGY REPORT [...] Treatments None Family Cancers None LOCATION: [facility] BREAST COMPOSITION: Heterogeneously dense,which may obscure [...] MD on 07/06/2022 at 10:00 Normal [facility] CBC AUTO DIFFon 06-20-2022 BASO # 0.1 103/ul Normal 0.0-0.1 [facility] Comment on above: Performed By: #### C BC #### [facility] [address] [address] [address] Alejandrina Feng Basophils/100 WBC (Bld) 0.4 % Normal 0.2-2.0 [facility] Comment on above: Performed By: #### C BC #### [facility] [address] [address] [address] Alejandrina Feng EO # 0.1 103/ul Normal 0.0-0.7 [facility] Comment on above: Performed By: #### C BC #### [facility] [address] [place] [address] Dr. Alejandrina Feng Eosinophils/100 WBC (Bld) 0.6 % Critically low 0.9-7.0 [facility] Comment on above: Performed By: #### C BC #### [facility] [address] [place] [address] Dr. Alejandrina Feng Erythrocyte distribution width (RBC) [Ratio] 14.6 % Normal 11.0-15.0 [facility] Comment on above: Performed By: #### C BC #### [facility] [address] [place] [address] Dr. Alejandrina Feng Hematocrit (Bld) [Volume fraction] 43.6 % Normal 36.0-48.0 [facility] Comment on above: Performed By: #### C BC #### [facility] [address] [place] [address] Dr. Alejandrina Feng Hemoglobin (Bld) [Mass/Vol] 14.1 g/dL Normal 12.0-16.0 [facility] Comment on above: Performed By: #### C BC #### [facility] [address] [place] [address] Dr. Alejandrina Feng IG # 0.07 10e3/ul Critically high 0.00-0.03 [facility] Comment on above: Performed By: #### C BC #### [facility] [address] [place] [address] Dr. Alejandrina Feng IG % 0.6 % Critically high 0.0-0.5 [facility] Comment on above: Performed By: #### C BC #### [facility] [address] [place] [address] Dr. Alejandrina Feng LYMPH # 1.6 103/ul Normal 1.2-3.8 [facility] Comment on above: Performed By: #### C BC #### [facility] [address] [place] [address] Dr. Alejandrina Feng Lymphocytes/100 WBC (Bld) 12.4 % Critically low 20.5-60.0 [facility] Comment on above: Performed By: #### C BC #### [facility] [address] [place] [address] Dr. Alejandrina Feng MANUAL DIFF REQ NO Normal [facility] Comment on above: Performed By: #### C BC #### [facility] [address] [place] [address] Dr. Alejandrina Feng MCH (RBC) [Entitic mass] 27.9 pg Normal 26.7-34.0 [facility] Comment on above: Performed By: #### C BC #### [facility] [address] [place] [address] Dr. Alejandrina Feng MCHC (RBC) [Mass/Vol] 32.3 g/dL Normal 29.9-35.2 [facility] Comment on above: Performed By: #### C BC #### [facility] [address] [place] [address] Dr. Alejandrina Feng MCV (RBC) [Entitic vol] 86.3 fL Normal 81.0-99.0 [facility] Comment on above: Performed By: #### C BC #### [facility] [address] [place] [address] Dr. Alejandrina Feng MONO # 0.9 103/ul Critically high 0.3-0.8 [facility] Comment on above: Performed By: #### C BC #### [facility] [address] [place] [address] Dr. Alejandrina Feng Monocytes/100 WBC (Bld) 7.2 % Normal 1.7-12.0 [facility] Comment on above: Performed By: #### C BC #### [facility] [address] [place] [address] Dr. Alejandrina Feng NEUT # 10.0 103/ul Critically high 1.4-6.5 [facility] Comment on above: Performed By: #### C BC #### [facility] [address] [place] [address] Dr. Alejandrina Feng Neutrophils/100 WBC (Bld) 78.8 % Critically high 43.0-75.0 [facility] Comment on above: Performed By: #### C BC #### [facility] [address] [place] [address] Dr. Alejandrina Feng Platelet mean volume (Bld) [Entitic vol] 8.8 fL Critically low 9.5-13.5 [facility] Comment on above: Performed By: #### C BC #### [facility] [address] [place] [address] Dr. Alejandrina Feng PLT 404 103/ul Normal 150-450 [facility] Comment on above: Performed By: #### C BC #### [facility] [address] [place] [address] Dr. Alejandrina Feng RBC 5.05 106/ul Normal 4.20-5.40 [facility] Comment on above: Performed By: #### C BC #### [facility] [address] [place] [address] Dr. Alejandrina Feng WBC 12.7 103/ul Critically high 4.0-11.0 [facility] Comment on above: Performed By: #### C BC #### [facility] [address] [place] [address] Dr. Alejandrina Feng PROF 14(COMP METB)on 022 Albumin [Mass/Vol] 3.6 g/dL Normal 3.4-5.0 [facility] Comment on above: Performed By: #### C MP, TSH #### [facility] [address] [place] [address] Dr. Alejandrina Feng Albumin/Globulin [Mass ratio] 0.8 {ratio} Normal [facility] Comment on above: Performed By: #### C MP, TSH #### [facility] [address] [place] [address] Dr. Alejandrina Feng ALP [Catalytic activity/Vol] 182 U/L Critically high 46-116 [facility] Comment on above: Performed By: #### C MP, TSH #### [facility] [address] [place] [address] Dr. Alejandrina Feng ALT [Catalytic activity/Vol] 29 U/L Normal 14-59 [facility] Comment on above: Performed By: #### C MP, TSH #### [facility] [address] [address] [address] Alejandrina Feng Anion gap [Moles/Vol] 13.4 mmol/L Normal [facility] Comment on above: Performed By: #### C MP, TSH #### [facility] [address] [address] [address] Alejandrina Feng AST [Catalytic activity/Vol] 22 U/L Normal 15-37 [facility] Comment on above: Performed By: #### C MP, TSH #### [facility] [address] [address] [address] Alejandrina Feng Bilirubin [Mass/Vol] 0.5 mg/dL Normal 0.2-1.0 [facility] Comment on above: Performed By: #### C MP, TSH #### [facility] [address] [address] [address] Alejandrina Feng Calcium [Mass/Vol] 9.3 mg/dL Normal 8.5-10.1 [facility] Comment on above: Performed By: #### C MP, TSH #### [facility] [address] [address] [address] Alejandrina Feng Chloride [Moles/Vol] 102 mmol/L Normal 98-107 [facility] Comment on above: Performed By: #### C MP, TSH #### [facility] [address] [address] [address] Alejandrina Feng CO2 [Moles/Vol] 26.2 mmol/L Normal 21.0-32.0 [facility] Comment on above: Performed By: #### C MP, TSH #### [facility] [address] [address] [address] Alejandrina Feng Creatinine [Mass/Vol] 0.94 mg/dL Normal 0.55-1.02 [facility] Comment on above: Performed By: #### C MP, TSH #### [facility] [address] [address] [address] Alejandrina Feng EGFR-AF ARMENIAN >60 Normal >=60 [facility] Comment on above: Performed By: #### C MP, TSH #### [facility] [address] [address] [address] Alejandrina Feng EGFR-NON AF ARMENIAN 59 mL/min/1.73m2 Critically low >=60 [facility] Comment on above: Performed By: #### C MP, TSH #### [facility] [address] [address] [address] Alejandrina Feng Globulin (S) [Mass/Vol] 4.3 g/dL Normal [facility] Comment on above: Performed By: #### C MP, TSH #### [facility] [address] [address] [address] Alejandrina Feng Glucose [Mass/Vol] 101 mg/dL Normal 74-106 [facility] Comment on above: Performed By: #### C MP, TSH #### [facility] [address] [address] [address] Alejandrina Feng Potassium [Moles/Vol] 4.6 mmol/L Normal 3.5-5.1 [facility] Comment on above: Performed By: #### C MP, TSH #### [facility] [address] [address] [address] Alejandrina Feng Protein [Mass/Vol] 7.9 g/dL Normal 6.4-8.2 [facility] Comment on above: Performed By: #### C MP, TSH #### [facility] [address] [address] [address] Alejandrina Feng Sodium [Moles/Vol] 137 mmol/L Normal 136-145 [facility] Comment on above: Performed By: #### C MP, TSH #### [facility] [address] [address] [address] Alejandrina Feng Urea nitrogen [Mass/Vol] 19.0 mg/dL Critically high 7.0-18.0 [facility] Comment on above: Performed By: #### C MP, TSH #### [facility] [address] [address] [address] Alejandrina Feng Urea nitrogen/Creatinine [Mass ratio] 20.2 mg/mg Normal [facility] Comment on above: Performed By: #### C MP, TSH #### [facility] [address] [place] [address] Dr. Alejandrina Feng TSHon 06-20-2022 TSH 0.854 uIU/mL Normal 0.358-3.740 [facility] Comment on above: Performed By: #### C MP, TSH #### [facility] [address] [place] [address] Dr. Alejandrina Feng Covid-19 PCR ([facility])on 02-23 SARS-CoV-2 (COVID-19) RNA JACKSON+probe Ql (Unsp spec) Not detected Normal NOT DETECTED [facility] Comment on above: Result Comment: When [...] for this test is supported by the [place] of Health and Human Service's declaration that [...] used). Performed By: #### C BC #### [facility] [address] [place] [address] Dr. Alejandrina Feng ELECTROLYTESon 03-09-2022 Anion gap [Moles/Vol] 14.8 mmol/L Normal [facility] Comment on above: Performed By: #### E LEC #### [facility] [address] [place] [address] Dr. Alejandrina Feng Chloride [Moles/Vol] 103 mmol/L Normal 98-107 [facility] Comment on above: Performed By: #### E LEC #### [facility] [address] [place] [address] Dr. Alejandrina Feng CO2 [Moles/Vol] 25.2 mmol/L Normal 21.0-32.0 [facility] Comment on above: Performed By: #### E LEC #### [facility] [address] [address] [address] Alejandrina Feng Potassium [Moles/Vol] 4.0 mmol/L Normal 3.5-5.1 [facility] Comment on above: Performed By: #### E LEC #### [facility] [address] [address] [address] Alejandrina Feng Sodium [Moles/Vol] 139 mmol/L Normal 136-145 [facility] Comment on above: Performed By: #### E LEC #### [facility] [address] [place] [address] Dr. Alejandrina Feng Covid-19 PCR ([facility])on SARS-CoV-2 (COVID-19) RNA JACKSON+probe Ql (Unsp spec) Not detected Normal NOT DETECTED [facility] Comment on above: Result Comment: This test is not yet approved or cleared by the [place] FDA. When there are no FDA-approved or cleared tests available, and other criteria are met, FDA can make tests available under an emergency access mechanism called an Emergency Use Authorization (EUA). The EUA for this test is supported by the [place] of Health and Human Service's (HHS's) declaration [...] SARS-CoV-2. Performed By: #### C VDTBH #### [facility] [address] [address] [address] Alejandrina Feng BNPon 02-22-2022 Natriuretic peptide B (Bld) [Mass/Vol] 60.0 pg/mL Normal <=900.0 [facility] Comment on above: Performed By: #### P THINT #### [facility] [address] [place] [address] Dr. Alejandrina Feng CBC AUTO DIFFon 02-22-2022 BASO # 0.1 103/ul Normal 0.0-0.1 [facility] Comment on above: Performed By: #### C BC #### [facility] [address] [place] [address] Dr. Alejandrina Feng Basophils/100 WBC (Bld) 0.4 % Normal 0.2-2.0 [facility] Comment on above: Performed By: #### C BC #### [facility] [address] [place] [address] Dr. Alejandrina Feng EO # 0.2 103/ul Normal 0.0-0.7 [facility] Comment on above: Performed By: #### C BC #### [facility] [address] [place] [address] Dr. Alejandrina Feng Eosinophils/100 WBC (Bld) 1.4 % Normal 0.9-7.0 [facility] Comment on above: Performed By: #### C BC #### [facility] [address] [place] [address] Dr. Alejandrina Feng Erythrocyte distribution width (RBC) [Ratio] 13.3 % Normal 11.0-15.0 [facility] Comment on above: Performed By: #### C BC #### [facility] [address] [place] [address] Dr. Alejandrina Feng Hematocrit (Bld) [Volume fraction] 45.1 % Normal 36.0-48.0 [facility] Comment on above: Performed By: #### C BC #### [facility] [address] [place] [address] Dr. Alejandrina Feng Hemoglobin (Bld) [Mass/Vol] 14.4 g/dL Normal 12.0-16.0 [facility] Comment on above: Performed By: #### C BC #### [facility] [address] [place] [address] Dr. Alejandrina Feng IG # 0.05 10e3/ul Critically high 0.00-0.03 [facility] Comment on above: Performed By: #### C BC #### [facility] [address] [place] [address] Dr. Alejandrina Feng IG % 0.4 % Normal 0.0-0.5 [facility] Comment on above: Performed By: #### C BC #### [facility] [address] [place] [address] Dr. Alejandrina Feng LYMPH # 1.6 103/ul Normal 1.2-3.8 [facility] Comment on above: Performed By: #### C BC #### [facility] [address] [place] [address] Dr. Alejandrina Feng Lymphocytes/100 WBC (Bld) 11.2 % Critically low 20.5-60.0 [facility] Comment on above: Performed By: #### C BC #### [facility] [address] [place] [address] Dr. Alejandrina Feng MANUAL DIFF REQ NO Normal [facility] Comment on above: Performed By: #### C BC #### [facility] [address] [place] [address] Dr. Alejandrina Feng MCH (RBC) [Entitic mass] 28.0 pg Normal 26.7-34.0 [facility] Comment on above: Performed By: #### C BC #### [facility] [address] [place] [address] Dr. Alejandrina Feng MCHC (RBC) [Mass/Vol] 31.9 g/dL Normal 29.9-35.2 [facility] Comment on above: Performed By: #### C BC #### [facility] [address] [place] [address] Dr. Alejandrina Feng MCV (RBC) [Entitic vol] 87.6 fL Normal 81.0-99.0 [facility] Comment on above: Performed By: #### C BC #### [facility] [address] [place] [address] Dr. Alejandrina Feng MONO # 0.6 103/ul Normal 0.3-0.8 [facility] Comment on above: Performed By: #### C BC #### [facility] [address] [place] [address] Dr. Alejandrina Feng Monocytes/100 WBC (Bld) 4.5 % Normal 1.7-12.0 [facility] Comment on above: Performed By: #### C BC #### [facility] [address] [place] [address] Dr. Alejandrina Feng NEUT # 11.4 103/ul Critically high 1.4-6.5 [facility] Comment on above: Performed By: #### C BC #### [facility] [address] [place] [address] Dr. Alejandrina Feng Neutrophils/100 WBC (Bld) 82.1 % Critically high 43.0-75.0 [facility] Comment on above: Performed By: #### C BC #### [facility] [address] [place] [address] Dr. Alejandrina Feng Platelet mean volume (Bld) [Entitic vol] 9.1 fL Critically low 9.5-13.5 [facility] Comment on above: Performed By: #### C BC #### [facility] [address] [place] [address] Dr. Alejandrina Feng PLT 363 103/ul Normal 150-450 [facility] Comment on above: Performed By: #### C BC #### [facility] [address] [place] [address] Dr. Alejandrina Feng RBC 5.15 106/ul Normal 4.20-5.40 [facility] Comment on above: Performed By: #### C BC #### [facility] [address] [place] [address] Dr. Alejandrina Feng WBC 13.9 103/ul Critically high 4.0-11.0 [facility] Comment on above: Performed By: #### C BC #### [facility] [address] [place] [address] Dr. Alejandrina Feng PROF 14(COMP METB)on 022 Albumin [Mass/Vol] 4.0 g/dL Normal 3.4-5.0 [facility] Comment on above: Performed By: #### P THINT #### [facility] [address] [place] [address] Dr. Alejandrina Feng Albumin/Globulin [Mass ratio] 0.8 {ratio} Normal [facility] [place] [facility] Comment on above: Performed By: #### P THINT #### [facility] [address] [address] [address] Alejandrina Feng ALP [Catalytic activity/Vol] 200 U/L Critically high 46-116 [facility] [place] [facility] Comment on above: Performed By: #### P THINT #### [facility] [address] [place] [address] Dr. Alejandrina Feng ALT [Catalytic activity/Vol] 29 U/L Normal 14-59 [facility] [place] [facility] Comment on above: Performed By: #### P THINT #### [facility] [address] [place] [address] Dr. Alejandrina Feng Anion gap [Moles/Vol] 12.2 mmol/L Normal [facility] [place] [facility] Comment on above: Performed By: #### P THINT #### [facility] [address] [place] [address] Dr. Alejandrina Feng AST [Catalytic activity/Vol] 25 U/L Normal 15-37 [facility] [place] [facility] Comment on above: Performed By: #### P THINT #### [facility] [address] [place] [address] Dr. Alejandrina Feng Bilirubin [Mass/Vol] 0.4 mg/dL Normal 0.2-1.0 [facility] [place] [facility] Comment on above: Performed By: #### P THINT #### [facility] [address] [address] [address] Alejandrina Feng Calcium [Mass/Vol] 9.5 mg/dL Normal 8.5-10.1 [facility] Comment on above: Performed By: #### P THINT #### [facility] [address] [place] [address] Dr. Alejandrina Feng Chloride [Moles/Vol] 101 mmol/L Normal 98-107 [facility] [place] [facility] Comment on above: Performed By: #### P THINT #### [facility] [address] [address] [address] Alejandrina Feng CO2 [Moles/Vol] 25.8 mmol/L Normal 21.0-32.0 [facility] Comment on above: Performed By: #### P THINT #### [facility] [address] [address] [address] Alejandrina Feng Creatinine [Mass/Vol] 0.69 mg/dL Normal 0.55-1.02 [facility] [place] [facility] Comment on above: Performed By: #### P THINT #### [facility] [address] [address] [address] Alejandrina Feng EGFR-AF ARMENIAN >60 Normal >=60 [facility] Comment on above: Performed By: #### P THINT #### [facility] [address] [address] [address] Alejandrina Feng EGFR-NON AF ARMENIAN >60 Normal >=60 [facility] [place] [facility] Comment on above: Performed By: #### P THINT #### [facility] [address] [address] [address] Alejandrina Feng Globulin (S) [Mass/Vol] 4.8 g/dL Normal [facility] [place] [facility] Comment on above: Performed By: #### P THINT #### [facility] [address] [address] [address] Alejandrina Feng Glucose [Mass/Vol] 96 mg/dL Normal 74-106 [facility] Comment on above: Performed By: #### P THINT #### [facility] [address] [address] [address] Alejandrina Feng Potassium [Moles/Vol] 4.0 mmol/L Normal 3.5-5.1 [facility] [place] [facility] Comment on above: Performed By: #### P THINT #### [facility] [address] [address] [address] Alejandrina Feng Protein [Mass/Vol] 8.8 g/dL Critically high 6.4-8.2 [facility] Comment on above: Performed By: #### P THINT #### [facility] [address] [address] [address] Alejandrina Feng Sodium [Moles/Vol] 135 mmol/L Critically low 136-145 [facility] Comment on above: Performed By: #### P THINT #### [facility] [address] [address] [address] Alejandrina Feng Urea nitrogen [Mass/Vol] 18.0 mg/dL Normal 7.0-18.0 [facility] Comment on above: Performed By: #### P THINT #### [facility] [address] [address] [address] Alejandrina Feng Urea nitrogen/Creatinine [Mass ratio] 26.1 mg/mg Normal [facility] [place] [facility] Comment on above: Performed By: #### P THINT #### [facility] [address] [place] [address] Dr. Alejandrina Feng TROPONIN, HIGH SENSITIVITYon 02-22-2022 HSTROP 7.4 pg/mL Normal 4.0-51.3 [facility] [place] [facility] Comment on above: Result Comment: CUT- OFF POINTS HAVE BEEN ESTABLISHED BASED ON THE FOURTH UNIVERSAL DEFINITIONS OF MYOCARDIAL INFARCTION. THE UPPER REFERENCE LIMIT (URL) OF TROPONIN, DEFINED THE 99TH PERCENTILE OF cTnI DISTRIBUTION IN A REFERENCE POPULATION, HAS BEEN CONFIRMED THE DECISION THRESHOLD FOR NV DIAGNOSIS. Performed By: #### H STROPN #### [facility] [address] [place] [address] Dr. Alejandrina Feng HSTROP 6.4 pg/mL Normal 4.0-51.3 [facility] Comment on above: Result Comment: CUT- OFF POINTS HAVE BEEN ESTABLISHED BASED ON THE FOURTH UNIVERSAL DEFINITIONS OF MYOCARDIAL INFARCTION. THE UPPER REFERENCE LIMIT (URL) OF TROPONIN, DEFINED THE 99TH PERCENTILE OF cTnI DISTRIBUTION IN A REFERENCE POPULATION, HAS BEEN CONFIRMED THE DECISION THRESHOLD FOR NV DIAGNOSIS. Performed By: #### P THINT #### [facility] [address] [place] [address] Dr. Alejandrina Feng XR CHEST 1 Von [...] by: EVERETT ERNANDEZ Date: 2022-02-22 13:20 Normal [facility] OSMOLALITYon 02-02-2022 Osmolality [Osmolality] 284 mosm/kg Normal 280-301 [facility] [place] [facility] Comment on above: Performed By: #### P THINT #### [facility] [address] [place] [address] Dr. Alejandrina Feng OSMOLALITY URINEon 2 Osmolality, Urine 629 mOsmol/kg Normal [facility] Comment on above: Result Comment: 24 h r : 300 - 900 Random: 50 - 1400 After 12hr fluid restriction: >850 Performed By: #### O SMOU #### [facility] [address] [place] [address] Dr. Alejandrina Feng PTH INTACTon 02-01-2022 PTH, Intact 42 pg/mL Normal 15-65 [facility] [place] [facility] Comment on above: Performed By: #### P THINT #### [facility] [address] [place] [address] Dr. Alejandrina Feng PROF CHEM 8 (BAS METB)on Anion gap [Moles/Vol] 12.7 mmol/L Normal [facility] [place] [facility] Comment on above: Performed By: #### P THINT #### [facility] [address] [place] [address] Dr. Alejandrina Feng Calcium [Mass/Vol] 8.7 mg/dL Normal 8.5-10.1 [facility] Comment on above: Performed By: #### P THINT #### [facility] [address] [place] [address] Dr. Alejandrina Feng Chloride [Moles/Vol] 100 mmol/L Normal 98-107 [facility] Comment on above: Performed By: #### P THINT #### [facility] [address] [place] [address] Dr. Alejandrina Feng CO2 [Moles/Vol] 27.7 mmol/L Normal 21.0-32.0 [facility] Comment on above: Performed By: #### P THINT #### [facility] [address] [address] [address] Alejandrina Feng Creatinine [Mass/Vol] 0.65 mg/dL Normal 0.55-1.02 [facility] Comment on above: Performed By: #### P THINT #### [facility] [address] [address] [address] Alejandrina Feng EGFR-AF ARMENIAN >60 Normal >=60 [facility] Comment on above: Performed By: #### P THINT #### [facility] [address] [address] [address] Alejandrina Feng EGFR-NON AF ARMENIAN >60 Normal >=60 [facility] Comment on above: Performed By: #### P THINT #### [facility] [address] [address] [address] Alejandrina Feng Glucose [Mass/Vol] 103 mg/dL Normal 74-106 [facility] Comment on above: Performed By: #### P THINT #### [facility] [address] [place] [address] Dr. Alejandrina Feng Potassium [Moles/Vol] 3.4 mmol/L Critically low 3.5-5.1 [facility] Comment on above: Performed By: #### P THINT #### [facility] [address] [address] [address] Alejandrina Feng Sodium [Moles/Vol] 137 mmol/L Normal 136-145 [facility] Comment on above: Performed By: #### P THINT #### [facility] [address] [place] [address] Dr. Alejandrina Feng Urea nitrogen [Mass/Vol] 15.0 mg/dL Normal 7.0-18.0 [facility] [place] [facility] Comment on above: Performed By: #### P THINT #### [facility] [address] [address] [address] Alejandrina Feng Urea nitrogen/Creatinine [Mass ratio] 23.1 mg/mg Normal [facility] Comment on above: Performed By: #### P THINT #### [facility] [address] [place] [address] Dr. Alejandrina Feng SODIUM RANDOM URINEon 2021 Sodium (U) [Moles/Vol] 74 mmol/L Normal 30-90 [facility] [place] [facility] Comment on above: Performed By: #### N AU #### [facility] [address] [place] [address] Dr. Alejandrina Feng TSHon 01-31-2022 TSH 0.791 uIU/mL Normal 0.358-3.740 [facility] Comment on above: Performed By: #### P THINT #### [facility] [address] [place] [address] Dr. Alejandrina Feng TSH RANGE SEE BELOW Normal [facility] Comment on above: Result Comment: <0.3 4 UIU/ml HYPERTHYROID 0.34-5.60 UIU/ml EUTHYROID >5.60 UIU/ml HYPOTHYROID Performed By: #### P THINT #### [facility] [address] [place] [address] Dr. Alejandrina Feng Vital Signs Date Time Vital Sign Value Performing Clinician Facility 10-09-2023 10:00-0500 Body height 162.56 cm Segun Kingsley Other [facility] Other 10-09-2023 10:00-0500 Body mass index (BMI) [Ratio] 25.81 kg/m2 Segun Kingsley Other [facility] Other 10-09-2023 10:00-0500 Body weight 68.22 kg Segun Kingsley Other [facility] Other 10-09-2023 10:00-0500 Diastolic blood pressure 83 mm[Hg] Segun [employer] Other [facility] Other 10-09-2023 10:00-0500 Respiratory rate 12 /min Segun Kingsley Other [facility] Other 10-09-2023 10:00-0500 Systolic blood pressure 126 mm[Hg] Segun Ball Other [facility] Other 09-19-2023 13:45-0500 Body height 162.56 cm Segun Ball Other [facility] Other 09-19-2023 13:45-0500 Body mass index (BMI) [Ratio] 26.02 kg/m2 Segun Ball Other [facility] Other 09-19-2023 13:45-0500 Body weight 68.77 kg Segun Ball Other [facility] Other 09-19-2023 13:45-0500 Diastolic blood pressure 79 mm[Hg] Segun Ball Other [facility] Other 09-19-2023 13:45-0500 Respiratory rate 12 /min Segun Ball Other [facility] Other 09-19-2023 13:45-0500 Systolic blood pressure 123 mm[Hg] Segun Ball Other [facility] Other 04-10-2023 11:00-0400 Body height 162.56 cm Segun Ball Other [facility] Other 04-10-2023 11:00-0400 Body mass index (BMI) [Ratio] 26.29 kg/m2 Segun Ball Other [facility] Other 04-10-2023 11:00-0400 Body weight 69.49 kg Segun Ball Other [facility] Other 04-10-2023 11:00-0400 Diastolic blood pressure 74 mm[Hg] Segun Ball Other [facility] Other 04-10-2023 11:00-0400 Respiratory rate 12 /min Segun Ball Other [facility] Other 04-10-2023 11:00-0400 Systolic blood pressure 108 mm[Hg] Segun Ball Other [facility] Other 01-25-2023 12:30-0400 Body height 162.56 cm Segun Ball Other [facility] Other 01-25-2023 12:30-0400 Body mass index (BMI) [Ratio] 26.05 kg/m2 Segun Ball Other [facility] Other 01-25-2023 12:30-0400 Body weight 68.86 kg Segun Ball Other [facility] Other 01-25-2023 12:30-0400 Diastolic blood pressure 81 mm[Hg] Segun Ball Other [facility] Other 01-25-2023 12:30-0400 Respiratory rate 12 /min Segun Ball Other [facility] Other 01-25-2023 12:30-0400 Systolic blood pressure 119 mm[Hg] Segun Ball Other [facility] Other 12-06-2022 11:00-0400 Body height 162.56 cm Segun Ball Other [facility] Other 12-06-2022 11:00-0400 Body mass index (BMI) [Ratio] 25.98 kg/m2 Segun Ball Other [facility] Other 12-06-2022 11:00-0400 Body weight 68.68 kg Segun Sancho Other [facility] Other 12-06-2022 11:00-0400 Diastolic blood pressure 74 mm[Hg] Segun Sancho Other [facility] Other 12-06-2022 11:00-0400 Respiratory rate 16 /min Segun Sancho Other [facility] Other 12-06-2022 11:00-0400 Systolic blood pressure 117 mm[Hg] Segun Sancho Other [facility] Other 07-13-2022 13:16-0400 Blood Pressure Location NOE SVITLANA [facility] 07-13-2022 13:16-0400 Diastolic blood pressure 88 mm[Hg] NOE SVITLANA [facility] 07-13-2022 13:16-0400 Heart rate 79 /min NOE SVITLANA [facility] 07-13-2022 13:16-0400 Respiratory rate 16 /min NEO SVITLANA [facility] 07-13-2022 13:16-0400 Systolic blood pressure 138 mm[Hg] NOE SVITLANA [facility] Encounters Encounter Date Encounter Type Care Provider Facility Start: 02-26-2024 ambulatory Enrique Boss ty:[facility] Start: 10-10-2023 End: 10-10-2023 ambulatory Segun Sancho Other [facility] Other Start: 10-10-2023 Telephone encounter Segun [facility] Start: 10-09-2023 End: 10-09-2023 ambulatory Segun Ball Other [facility] Other Start: 10-09-2023 Office outpatient vi sit 25 minutes Segun Ball [facility] Start: 09-22-2023 End: 09-22-2023 ambulatory Segun Ball Other [facility] Other Start: 09-22-2023 Telephone encounter Segun Ball [facility] Start: 09-19-2023 End: 09-19-2023 ambulatory Segun Ball Other [facility] Other Start: 09-19-2023 Office outpatient vi sit 15 minutes Segun Ball [facility] Start: 09-13-2023 Telephone encounter Segun Ball [facility] Start: 09-13-2023 End: 09-13-2023 [facility] [employer] Other Start: 07-19-2023 End: 07-19-2023 ambulatory Segun Ball Other [facility] Other Start: 07-19-2023 Office outpatient vi sit 15 minutes Segun Ball [facility] Start: 06-20-2023 End: 06-20-2023 ambulatory Segun Ball Other [facility] Other Start: 06-20-2023 Telephone encounter Segun Ball [facility] Start: 04-13-2023 End: 04-13-2023 ambulatory Segun Ball Other [facility] Other Start: 04-13-2023 Telephone encounter Segun Ball [facility] Start: 04-10-2023 End: 04-10-2023 ambulatory Segun Ball Other [facility] Other Start: 04-10-2023 Encounter for genera l adult medical examination without abnormal findings Segun Ball [facility] Start: 04-10-2023 Periodic preventive med est patient 65yrs& older Segun Sancho [facility] Start: 02-13-2023 End: 02-14-2023 ambulatory Enrique VÁSQUEZ Facility: [facility] Start: 01-25-2023 End: 01-25-2023 ambulatory Segun Kingsley Other [facility] Other Start: 01-25-2023 Office outpatient vi sit 15 minutes Segun Kingsley [facility] Start: 01-20-2023 End: 01-21-[address] ENRIQUE VÁSQUEZ . Facility:[facility] Start: 12-06-2022 End: 12-06-2022 ambulatory Segun Kingsley Other [facility] Other Start: 12-06-2022 Office outpatient vi sit 25 minutes Segun Kingsley [facility] Start: 10-27-2022 End: 10-28-[address] ENRIQUE VÁSQUEZ . Facility:[facility] Start: 08-26-2022 End: 08-27-[address] ELOINA DUMONT Facility:[facility] Start: 07-13-2022 End: 07-14-2022 ambulatory Jackson Bach Facility:[facility] Start: 07-13-2022 End: 07-13-2022 Patient encounter procedure NOE SHANE [facility] Start: 07-06-2022 End: 07-07-[address] SEGUN KINGSLEY Facility:[facility] Start: 06-20-2022 End: 06-21-[address] SEGUN KINGSLEY Facility:[facility] Start: 04-01-2022 Adult health examination Segun Kingsley Other [facility] Other Start: 03-11-2022 End: 03-11-[address] [...] (incl. purified surface antigen) Segun Sancho Other [facility] Other 06-22-2022 influenza, high dose seasonal, preservative-free Segun Sancho Other [facility] Other 04-01-2022 pneumococcal conjuga te vaccine, 13 valent NOE SHANE [facility] 09-01-2021 COVID-19 Vaccine Pfi zer - Documentation Purposes Only Segun Kingsley Other [facility] Other 09-01-2021 SARS-CoV-2 (COVID-19 ) Ad26 vaccine, recombinant NOE SHANE [facility] 07-19-2021 influenza virus vaccine, split virus (incl. purified surface antigen) Segun Kingsley Other [facility] Other 05-26-2021 influenza virus vaccine, unspecified formulation NOE SHANE [facility] 01-05-2021 diphtheria, tetanus toxoids and acellular pertussis vaccine, unspecified formulation Segun Kingsley Other [facility] [employer] Other 01-05-2021 tetanus toxoid, redu agustin diphtheria toxoid, and acellular pertussis vaccine, adsorbed NOECHAVA SHANE [facility] 12-25-2020 COVID-19, mRNA, LNP- S, PF, 30 mcg/0.3 mL dose NOE SVITLANA [facility] Comment on above: Reason for Medicatio n: Prophylaxis 12-04-2020 COVID-19, mRNA, LNP- S, PF, 30 mcg/0.3 mL dose NOE SVITLANA [facility] Comment on above: Reason for Medicatio n: Prophylaxis 08-14-2020 pneumococcal polysaccharide vaccine, 23 valent Segun Kingsley Other [employer] Other 08-11-2020 influenza virus vaccine, split virus (incl. purified surface antigen) Segun Kingsley Other [facility] Other 08-10-2020 influenza virus vaccine, unspecified formulation NOE SHANE [facility] 07-25-2018 influenza virus vaccine, split virus (incl. purified surface antigen) Segun Kingsley Other [facility] Other 07-25-2018 influenza virus vaccine, unspecified formulation NOE SHANE [facility] 10-12-2017 influenza virus vaccine, split virus (incl. purified surface antigen) Segun Ball Other [facility] Other Payers Date Payer Category Payer Unknown [id number] 2. [id number] 1955 Unknown [id number] 2.16.84 [id number] 1954 Unknown [id number] 2.16.84 [id number] 1954 Unknown [id number] 2.16.84 [id number] 1954 Unknown [id number] 2.16.84 0.1.726444.3.579.2.593 1954 Unknown [id number] 2.16.84 0.1.074589.3.579.2.593 1954 Unknown [id number] 2.16.84 0.1.292525.3.579.2.593 1954 Unknown [id number] 2.16.84 0.1.522732.3.579.2.593 1954 Unknown [id number] 2.16.84 0.1.290569.3.579.2.593 1954 Unknown [id number] 2.16.84 0.1.988630.3.579.2.593 1954 Unknown [id number] 2.16.84 0.1.113371.3.579.2.593 1954 Unknown [id number] 2.16.84 0.1.088533.3.579.2.593 1954 Unknown [id number] 2.16.8 40.1.054505.3.579.2.727 1954 Unknown [id number] 2.16.8 [id number] 1954 Unknown [id number] 2.16.840 .[id number] Social History Date Type Detail Facility Start: 07-13-2022 Tobacco smoking status Never s moked tobacco (finding) [facility] Tobacco smoking status Never [facility] Sex Assigned At Female [facility] Functional Status Date Assessment Result Facility 07-13-2022 Functional Status N/A [facility] Clinical Notes 07-13-2022 to 10-10-2023 Note Date & Type Note Facility 10-10-2023 Evaluation note Encounter Date Diagnosis Assessment Notes Sep, COVID- 19 (ICD-1 0 - U07.1) [facility] Other 01-15-2024 Evaluation note* Encounter Date Diagnosis [...] interruption. 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 Referred to ENT w/ no further scans recommended. [facility] Other 10-25-2023 Evaluation note* Encounter Date Diagnosis [...] Amlodipine to 5mg qd while taking Paxlovid [facility] Other 07-17-2023 Evaluation note* Encounter Date Diagnosis [...] and yearly mammogram - due in Jun [facility] Other 05-03-2023 Evaluation note* Encounter Date Diagnosis [...] pneumonia Due for COVID booster and Shingrix [facility] Other 03-14-2023 Evaluation note* Encounter Date Diagnosis [...] or drinking prior to bedtime. Continue PPI [facility] Other 10-19-2022 Hospital Discharge instructions Patient Education 07/13/2022 13:30:11 Kidney Stones, [id number] Kidney Stones Kidney stones are rock-like masses [...] Follow these instructions at home: Medicines Take sstg-krp-mozjuof and prescription medicines only as told by [...] 02/27/2009 Document Revised: 01/28/2020 Document Reviewed: 01/28/2020 [employer] Patient Education 2019 [employer]. Follow Up Care 10/18/2021 12:21:40 With:SVITLANA IBARRA, NOE Anderson, URL Address: [address] [place] [address] [phone] When: Unknown [facility] [email or web address] 10-19-2022 Evaluation + Plan note Future Scheduled Tests Laboratory* Basic Metabolic Panel 07/13/22 [facility] [email or web address] evaluation noteNo [facility] [employer] Other History general Narrative - Reported* Type [...] GENEVA/BSO 2010 Hospitalization History SEE SURGICAL HX [facility] [employer] Other History general Narrative - ReportedFord [employer] Other Hospital course Narrative No data available for this section [facility] [email or web address] progress note No data available for this section [facility] [email or web address] reason for referral (narrative)* Reason Referral for treatme nt of chronic low back pain Diagnosis 1 Acute bilateral low back pain without sciatica (M54.50) Diagnosis 2 Lumbar spondylosis ( M47.816) Referral Organization [facility] Becca rivas Referring Provider First Name Segun Referring Provider Last Name Sancho Referring Provider Specialty Internal Me dicine Referred Organization [facility] Referred Address [address], [place],[address] Referred Provider Specialty Pain Medicin e Referral [...] for injections. Clinical Notes Include XR results [facility] Other Summary Purpose Family History No Family History Records FoundNo Family History Records FoundNo Family History Records Found Advance Directives No Advanced Directives Records FoundNo Advanced Directives Records FoundNo Advanced Directives Records Found Additional Source Comments Patient Care team informatio n (unrecognized section and content) Personnel Name: SEGUN KINGSLEY DO Address: Address: [address], [place], [place] [address] REASON FOR VISIT (unrecogniz ed section and content) 3 month Follow upPossible Sp rondar [phone] COVID +No Informationback painback painXR results6 monthCOVID + INFORMATION SOURCE (unrecogn ized section and content) DATE CREATED AUTHOR 01/27/2023 [facility] DATE CREATED AUTHOR AUTHOR'S ORGANIZ ATION 09/13/2023 [facility] DATE CREATED AUTHOR AUTHOR'S ORGANIZ ATION 09/14/2023 [facility] EPIC FOR RECORDS [...] BE BASED ON THE PRIMARY CLINICAL RECORDS. [facility] provides no warranty or guarantee of the accuracy or completeness of information in this document.
[2023-10-31 08:05] VITALS: BP 142/86; PULSE 99; RESP 16; TEMP 36.2
[2023-10-31 09:12] VITALS: BP 139/76; PULSE 83; RESP 18; O2SAT 96
[2023-10-31 09:13] VITALS: BP 121/73; PULSE 82; RESP 18; O2SAT 97
[2023-10-31] MEDS: METHYLPREDNISOLONE ACETATE 40 MG/ML VIAL INJ (09:14)
[2023-10-31] MEDS: LIDOCAINE HCL 2% 400 MG/20 ML MDV 15 ML INJ (09:14)
[2023-10-31] MEDS: BUPIVACAINE HCL 0.25% PF 25 MG/10 ML VIAL INJ (09:14)
--- NOTE | 2023-10-31 09:42 | W.PM.PROCNOT ---
Date of procedure: 10/31/23 Pre-op diagnosis: lumbar spondylosis Post-op diagnosis: same as pre-op Procedure: Right Lumbar 4/5, 5/sacral 1 Radiofrequency ablation Under fluoroscopic guidance Rhizotomy was created using radio frequency ablation at 80?C for 90 seconds 1 to 2 lesions created at each site. Post lesioning injection of 2 mL each of 0.25% Marcaine and 2% lidocaine with Depo-Medrol 40mg. 0.5 to 1 mL injected at each site IV in place no If Intravenous fluids: NS at KVO Anesthesia local 2% lidocaine for Anesthesia Other: local Timeout process compliant After informed consent obtained.Patient brought to the procedure room placed in the prone position skin overlying the area was prepped and draped in a sterile fashion using betadine. 25 gauge needle was used to create a skin wheal over each of the targeted areas utilizing 2% lidocaine. A rhizotomy needle with a 10 mm active tip was inserted over each of the anesthetized areas and directed towards each of the medial branches accomplished under fluoroscopic guidance. after encountering the same we had positive sensory stimulation, negative motor stimulation was noted. lesions were then created. Post lesioning, steroid solution was injected needles removed. Patient was transferred to recovery room in stable condition to be discharged home after meeting criteria. Anesthesia: Local Surgeon: Laurence Pedersen Condition: stable
== END 2023-10-31 09:35 | disposition home or self-care (01) ==
LOC: SURGOUT 07:46
PROVIDERS: PCP Internal Medicine; Visit Provider Anesthesiology Pain Medicine
DX: M47.816 Spondylosis without myelopathy or radiculopathy, lumbar region (principal)
CPT/HCPCS: 64635; 64636; J0665; J1030

== ENCOUNTER 2023-11-29 11:25 | Outpatient (OUT) | payer OTHER, SELFPAY ==
--- OUTSIDE RECORDS SUMMARY | 2023-11-29 11:32 | XMS_ITS | CCD ---
Author Name Unknown Address [address] [place] [address] Organization [facility] Care Team Providers Care Cnmt Name Role Phone SEGUN KINGSLEY Primary Care Physician [phone] Segun Kingsley Unavailable VÁSQUZE ., DR RENEE Attending Unavailable VÁSQUEZ ., DR RENEE Consulting Unavailable VÁSQUEZ ., DR RENEE Admitting Unavailable BALL, DR GALVEZ Primary Care Unavailable WEST, DR EVERETT Salazar Consulting Unavailable VÁSQUEZ ., DR RENEE Consulting Unavailable VÁSQUEZ ., DR ENRIQUE Ballesterositting Unavailable VÁSQUEZ ., DR RENEE Attending Unavailable BALL, DR GALVEZ Primary Care Unavailable TIMMIS, DR DUVALL Admitting Unavailable TIMMIS, DR DUVALL Attending Unavailable TIMMIS, DR DUVALL Consulting Unavailable BALL, DR GALVEZ Primary Care Unavailable AWAIS, DR EVERETT Salazar Consulting Unavailable Zieber, Jackson Consulting Unavailable SVITLANA, NOE Admitting Unavailable SVITLANA, [...] DR GALVEZ Primary Care Unavailable BALL, DR SEGUN Ballesterositting Unavailable VÁSQUEZ ., DR RENEE Consulting Unavailable [...] Unavailable DR EVERETT ERNANDEZ V Consulting Unavailable STEPHAN COBB Consulting Unavailable Enrique VÁSQUEZ Attending Unavailable Enrique VÁSQUEZ Attending Unavailable ELOINA DUMONT Attending Unavailable SEGUN KINGSLEY Referring Unavailable Allergies Allergy Classification Reported Allergen(s) Allergy Type Date of Onset Reaction(s) Facility (2 sources) patient allergy list reviewed by nurse or physicia Propensity to adverse reactions Comment:Done [facility] Other (1 source) No Known Medication Allergies; Translations: [No Known Medication Allergies] Propensity to adverse reactions (disorder) [facility] Repository Medications Current Medications Medication Drug Class(es) Dates Sig (Normalized) Sig (Original) acetaminophen 500 mg oral tablet (1 source) Start: 05-05-2021 take 500 mg by mouth twice daily Tylenol 500 mg, Oral, BID Start Date: 05/05/21 Status: Ordered [id number] 60 actuat albuterol 0.09 mg/actuat metered dose [...] Daily, # 90 tab(s), Refills(s) 3, Pharmacy: [facility], 163, cm, 10/18/21 11:50:00 EST, Height/Length [...] Start: 06-01-2023 take 1 capsule by mo [facility] at bedtime as needed Start: 12-01-2022 [...] 6 Episodic Other aftercare (1 source) Other care home (current) drug therapy; Translations: [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 00TIFF [facility] Reminderson 08-22-2023 Reminders - From: Selma [...] clinisync. Pt states she is going to [facility] today to have lytes drawn. From: NOE SHANE PA-C (EU - Pending Results) To: EU - Clinical; Sent: 08/22/2023 10:52:27 EST Show up: 08/22/2023 10:51:00 EST Subject: RE: Electrolye panel advise pt electrolytes look good. potassium is slightly lower than earlier this year but still within normal range. would recommend she increase po intake of potassium-rich foods. pt. notified about lab work Normal [facility] Patient Educationon 02-14-20 Patient Education Nephrology Dietary [...] Spinach (cooked), rhubarb, beets, sweet potatoes, and Croatian chard. ? Peanuts. ? Potato chips, syrian fries, and baked potatoes with skin on. ? Nuts and nut products. ? Chocolate. ? If you regularly take a diuretic medicine, make sure to eat at least 1 or 2 servings of fruits or vegetables that are high in potassium each day. These include: ? Avocado. ? Banana. ? Tyrrell, prune, carrot, or tomato juice. ? Baked [...] fish oil, or vitamin B6. ? Take yqvj-rod-exjrlwp and prescription medicines only as told by your health care provider. These include supplements. What foods should I limit? Limit your in (more content not included)... Normal [facility] Urology Office/Clinic Noteon 02-13-2023 Urology Office/Clinic Note [...] [facility] [address], [place] [address]- Additional Instructions: 1 yr KUB with OV, [...] History Arthritis: Mother (more content not included)... [facility] Comment on above: Result Comment: Elec tronically Signed By: Enrique VÁSQUEZ MD\.br\Date and Time Signed: 02/13/23 15:14 EDT\.br\Electronically Co-Signed By: Selma Allen\.br\Date and Time Co-Signed: 02/13/23 15:12 EDT RAD - MISCon 01-23-2023 RAD - MISC [id number] .00CD:127 Normal [facility] XR KUB 1 VIEWon 01-20-2023 XR KUB [...] by: EVERETT ERNANDEZ Date: 2023-01-20 11:11 Normal [facility] Lab Reportson 10-31-2022 Lab Reports [id number] .00CD:127 Normal [facility] Physician Orderon 10-28-2022 Physician Order [id number] .00CD:127 Normal [facility] ELECTROLYTESon 10-27-2022 Anion gap [Moles/Vol] 12.4 mmol/L Normal [facility] Comment on above: Performed By: #### P THINT #### [facility] [address] [address] [address] Alejandrina Feng Chloride [Moles/Vol] 102 mmol/L Normal 98-107 [facility] Comment on above: Performed By: #### P THINT #### [facility] [address] [address] [address] Alejandrina Feng CO2 [Moles/Vol] 28.5 mmol/L Normal 21.0-32.0 [facility] Comment on above: Performed By: #### P THINT #### [facility] [address] [address] [address] Alejandrina Feng Potassium [Moles/Vol] 3.9 mmol/L Normal 3.5-5.1 [facility] Comment on above: Performed By: #### P THINT #### [facility] [address] [address] [address] Alejandrina Feng Sodium [Moles/Vol] 139 mmol/L Normal 136-145 [facility] Comment on above: Performed By: #### P THINT #### [facility] [address] [place] [address] Dr. Alejandrina Feng THYROIDon 08-29-2022 US THYROID EXAMINATION: US THYROID [...] thyroid stable. TR 3 nodule TI-RADS: The [place] [employer] TI-RADS committee's white paper recommendations for thyroid lesions classified as TR3 (mildly suspicious) are listed below: > 1.5 cm. Follow-up ultrasound in 1, 3, and 5 years. > 2.5 cm. FNA. J. Am Jose Radiol 2017;14:587-595. Electronically authenticated by: EVERETT ERNANDEZ Date: 2022-08-29 07:19 Normal [facility] XR KUB 1 VIEWon 07-14-2022 XR [...] by: JACKSON BACH Date: 2022-07-14 06:26 Normal [facility] ELECTROLYTESon 07-13-2022 Anion gap [Moles/Vol] 9.0 mmol/L Normal [facility] Comment on above: Performed By: #### E LEC #### [facility] [address] [address] [address] Alejandrina Feng Chloride [Moles/Vol] 101 mmol/L Normal 98-107 [facility] Comment on above: Performed By: #### E LEC #### [facility] [address] [address] [address] Alejandrina Feng CO2 [Moles/Vol] 27.5 mmol/L Normal 21.0-32.0 [facility] Comment on above: Performed By: #### E LEC #### [facility] [address] [address] [address] Alejandrina Feng Potassium [Moles/Vol] 3.5 mmol/L Normal 3.5-5.1 [facility] Comment on above: Performed By: #### E LEC #### [facility] [address] [address] [address] Alejandrina Feng Sodium [Moles/Vol] 134 mmol/L Critically low 136-[address] [facility] Comment on above: Performed By: #### E LEC #### [facility] [address] [address] [address] Alejandrina Feng MG MAMM SCREEN 3D TUSHAR CADon 07-06-2022 MG MAMM SCREEN 3D TUSHAR CAD Patient: MIK CORONA Exam Date: 07/06/2022 : 1955 Gender:F Ordering : DR SEGUN KINGSLEY D.O. Admission #: [id number] Family : Order #: [id number] CLICK HERE TO VIEW EXAM RADIOLOGY REPORT [...] Treatments None Family Cancers None LOCATION: [facility] BREAST COMPOSITION: Heterogeneously dense,which may obscure [...] MD on 07/06/2022 at 10:00 Normal [facility] CBC AUTO DIFFon 06-20-2022 BASO # 0.1 103/ul Normal 0.0-0.1 [facility] Comment on above: Performed By: #### C BC #### [facility] [address] [address] [address] Alejandrina Feng Basophils/100 WBC (Bld) 0.4 % Normal 0.2-2.0 [facility] Comment on above: Performed By: #### C BC #### [facility] [address] [address] [address] Alejandrina Feng EO # 0.1 103/ul Normal 0.0-0.7 [facility] Comment on above: Performed By: #### C BC #### [facility] [address] [place] [address] Dr. Alejandrina Feng Eosinophils/100 WBC (Bld) 0.6 % Critically low 0.9-7.0 [facility] Comment on above: Performed By: #### C BC #### [facility] [address] [place] [address] Dr. Alejandrina Feng Erythrocyte distribution width (RBC) [Ratio] 14.6 % Normal 11.0-15.0 [facility] Comment on above: Performed By: #### C BC #### [facility] [address] [place] [address] Dr. Alejandrina Feng Hematocrit (Bld) [Volume fraction] 43.6 % Normal 36.0-48.0 [facility] Comment on above: Performed By: #### C BC #### [facility] [address] [place] [address] Dr. Alejandrina Feng Hemoglobin (Bld) [Mass/Vol] 14.1 g/dL Normal 12.0-16.0 [facility] Comment on above: Performed By: #### C BC #### [facility] [address] [place] [address] Dr. Alejandrina Feng IG # 0.07 10e3/ul Critically high 0.00-0.03 [facility] Comment on above: Performed By: #### C BC #### [facility] [address] [place] [address] Dr. Alejandrina Feng IG % 0.6 % Critically high 0.0-0.5 [facility] Comment on above: Performed By: #### C BC #### [facility] [address] [place] [address] Dr. Alejandrina Feng LYMPH # 1.6 103/ul Normal 1.2-3.8 [facility] Comment on above: Performed By: #### C BC #### [facility] [address] [place] [address] Dr. Alejandrina Feng Lymphocytes/100 WBC (Bld) 12.4 % Critically low 20.5-60.0 [facility] Comment on above: Performed By: #### C BC #### [facility] [address] [place] [address] Dr. Alejandrina Feng MANUAL DIFF REQ NO Normal [facility] Comment on above: Performed By: #### C BC #### [facility] [address] [place] [address] Dr. Alejandrina Feng MCH (RBC) [Entitic mass] 27.9 pg Normal 26.7-34.0 [facility] Comment on above: Performed By: #### C BC #### [facility] [address] [place] [address] Dr. Alejandrina Feng MCHC (RBC) [Mass/Vol] 32.3 g/dL Normal 29.9-35.2 [facility] Comment on above: Performed By: #### C BC #### [facility] [address] [place] [address] Dr. Alejandrina Feng MCV (RBC) [Entitic vol] 86.3 fL Normal 81.0-99.0 [facility] Comment on above: Performed By: #### C BC #### [facility] [address] [place] [address] Dr. Alejandrina Feng MONO # 0.9 103/ul Critically high 0.3-0.8 [facility] Comment on above: Performed By: #### C BC #### [facility] [address] [place] [address] Dr. Alejandrina Feng Monocytes/100 WBC (Bld) 7.2 % Normal 1.7-12.0 [facility] Comment on above: Performed By: #### C BC #### [facility] [address] [place] [address] Dr. Alejandrina Feng NEUT # 10.0 103/ul Critically high 1.4-6.5 [facility] Comment on above: Performed By: #### C BC #### [facility] [address] [place] [address] Dr. Alejandrina Feng Neutrophils/100 WBC (Bld) 78.8 % Critically high 43.0-75.0 [facility] Comment on above: Performed By: #### C BC #### [facility] [address] [place] [address] Dr. Alejandrina Feng Platelet mean volume (Bld) [Entitic vol] 8.8 fL Critically low 9.5-13.5 [facility] Comment on above: Performed By: #### C BC #### [facility] [address] [place] [address] Dr. Alejandrina Feng PLT 404 103/ul Normal 150-450 [facility] Comment on above: Performed By: #### C BC #### [facility] [address] [place] [address] Dr. Alejandrina Feng RBC 5.05 106/ul Normal 4.20-5.40 [facility] Comment on above: Performed By: #### C BC #### [facility] [address] [place] [address] Dr. Alejandrina Feng WBC 12.7 103/ul Critically high 4.0-11.0 [facility] Comment on above: Performed By: #### C BC #### [facility] [address] [place] [address] Dr. Alejandrina Feng PROF 14(COMP METB)on 022 Albumin [Mass/Vol] 3.6 g/dL Normal 3.4-5.0 [facility] Comment on above: Performed By: #### C MP, TSH #### [facility] [address] [place] [address] Dr. Alejandrina Feng Albumin/Globulin [Mass ratio] 0.8 {ratio} Normal [facility] Comment on above: Performed By: #### C MP, TSH #### [facility] [address] [place] [address] Dr. Alejandrina Feng ALP [Catalytic activity/Vol] 182 U/L Critically high 46-116 [facility] Comment on above: Performed By: #### C MP, TSH #### [facility] [address] [place] [address] Dr. Alejandrina Feng ALT [Catalytic activity/Vol] 29 U/L Normal 14-59 [facility] Comment on above: Performed By: #### C MP, TSH #### [facility] [address] [address] [address] Alejandrina Feng Anion gap [Moles/Vol] 13.4 mmol/L Normal [facility] Comment on above: Performed By: #### C MP, TSH #### [facility] [address] [address] [address] Alejandrina Feng AST [Catalytic activity/Vol] 22 U/L Normal 15-37 [facility] Comment on above: Performed By: #### C MP, TSH #### [facility] [address] [address] [address] Alejandrina Feng Bilirubin [Mass/Vol] 0.5 mg/dL Normal 0.2-1.0 [facility] Comment on above: Performed By: #### C MP, TSH #### [facility] [address] [address] [address] Alejandrina Feng Calcium [Mass/Vol] 9.3 mg/dL Normal 8.5-10.1 [facility] Comment on above: Performed By: #### C MP, TSH #### [facility] [address] [address] [address] Alejandrina Feng Chloride [Moles/Vol] 102 mmol/L Normal 98-107 [facility] Comment on above: Performed By: #### C MP, TSH #### [facility] [address] [address] [address] Alejandrina Feng CO2 [Moles/Vol] 26.2 mmol/L Normal 21.0-32.0 [facility] Comment on above: Performed By: #### C MP, TSH #### [facility] [address] [address] [address] Alejandrina Feng Creatinine [Mass/Vol] 0.94 mg/dL Normal 0.55-1.02 [facility] Comment on above: Performed By: #### C MP, TSH #### [facility] [address] [address] [address] Alejandrina Feng EGFR-AF MONTSERRATIAN >60 Normal >=60 [facility] Comment on above: Performed By: #### C MP, TSH #### [facility] [address] [address] [address] Alejandrina Feng EGFR-NON AF MONTSERRATIAN 59 mL/min/1.73m2 Critically low >=60 [facility] Comment on above: Performed By: #### C MP, TSH #### [facility] [address] [address] [address] Alejandrina Feng Globulin (S) [Mass/Vol] 4.3 g/dL Normal [facility] Comment on above: Performed By: #### C MP, TSH #### [facility] [address] [address] [address] Alejandrina Feng Glucose [Mass/Vol] 101 mg/dL Normal 74-106 [facility] Comment on above: Performed By: #### C MP, TSH #### [facility] [address] [address] [address] Alejandrina Feng Potassium [Moles/Vol] 4.6 mmol/L Normal 3.5-5.1 [facility] Comment on above: Performed By: #### C MP, TSH #### [facility] [address] [address] [address] Alejandrina Feng Protein [Mass/Vol] 7.9 g/dL Normal 6.4-8.2 [facility] Comment on above: Performed By: #### C MP, TSH #### [facility] [address] [address] [address] Alejandrina Feng Sodium [Moles/Vol] 137 mmol/L Normal 136-145 [facility] Comment on above: Performed By: #### C MP, TSH #### [facility] [address] [address] [address] Alejandrina Feng Urea nitrogen [Mass/Vol] 19.0 mg/dL Critically high 7.0-18.0 [facility] Comment on above: Performed By: #### C MP, TSH #### [facility] [address] [address] [address] Alejandrina Feng Urea nitrogen/Creatinine [Mass ratio] 20.2 mg/mg Normal [facility] Comment on above: Performed By: #### C MP, TSH #### [facility] [address] [place] [address] Dr. Alejandrina Feng TSHon 06-20-2022 TSH 0.854 uIU/mL Normal 0.358-3.[address] [facility] Comment on above: Performed By: #### C MP, TSH #### [facility] [address] [place] [address] Dr. Alejandrina Feng Covid-19 PCR ([facility])on 02-23 SARS-CoV-2 (COVID-19) RNA JACKSON+probe Ql (Unsp spec) Not detected Normal NOT DETECTED [facility] Comment on above: Result Comment: When [...] for this test is supported by the Living Manager of Health and Human Service's declaration that [...] used). Performed By: #### C BC #### [facility] [address] [place] [address] Dr. Alejandrina Feng ELECTROLYTESon 03-09-2022 Anion gap [Moles/Vol] 14.8 mmol/L Normal [facility] Comment on above: Performed By: #### E LEC #### [facility] [address] [place] [address] Dr. Alejandrina Feng Chloride [Moles/Vol] 103 mmol/L Normal 98-107 [facility] Comment on above: Performed By: #### E LEC #### [facility] [address] [place] [address] Dr. Alejandrina Feng CO2 [Moles/Vol] 25.2 mmol/L Normal 21.0-32.0 [facility] Comment on above: Performed By: #### E LEC #### [facility] [address] [address] [address] Alejandrina Feng Potassium [Moles/Vol] 4.0 mmol/L Normal 3.5-5.1 [facility] Comment on above: Performed By: #### E LEC #### [facility] [address] [address] [address] Alejandrina Feng Sodium [Moles/Vol] 139 mmol/L Normal 136-145 [facility] Comment on above: Performed By: #### E LEC #### [facility] [address] [place] [address] Dr. Alejandrina Feng Covid-19 PCR ([facility])on SARS-CoV-2 (COVID-19) RNA JACKSON+probe Ql (Unsp spec) Not detected Normal NOT DETECTED [facility] Comment on above: Result Comment: This test is not yet approved or cleared by the [place] FDA. When there are no FDA-approved or cleared tests available, and other criteria are met, FDA can make tests available under an emergency access mechanism called an Emergency Use Authorization (EUA). The EUA for this test is supported by the Living Manager of Health and Human Service's (HHS's) declaration [...] SARS-CoV-2. Performed By: #### C VDTBH #### [facility] [address] [address] [address] Alejandrina Feng BNPon 02-22-2022 Natriuretic peptide B (Bld) [Mass/Vol] 60.0 pg/mL Normal <=900.0 [facility] Comment on above: Performed By: #### P THINT #### [facility] [address] [place] [address] Dr. Alejandrina Feng CBC AUTO DIFFon 02-22-2022 BASO # 0.1 103/ul Normal 0.0-0.1 [facility] Comment on above: Performed By: #### C BC #### [facility] [address] [place] [address] Dr. Alejandrina Feng Basophils/100 WBC (Bld) 0.4 % Normal 0.2-2.0 [facility] Comment on above: Performed By: #### C BC #### [facility] [address] [place] [address] Dr. Alejandrina Feng EO # 0.2 103/ul Normal 0.0-0.7 [facility] Comment on above: Performed By: #### C BC #### [facility] [address] [place] [address] Dr. Alejandrina Feng Eosinophils/100 WBC (Bld) 1.4 % Normal 0.9-7.0 [facility] Comment on above: Performed By: #### C BC #### [facility] [address] [place] [address] Dr. Alejandrina Feng Erythrocyte distribution width (RBC) [Ratio] 13.3 % Normal 11.0-15.0 [facility] Comment on above: Performed By: #### C BC #### [facility] [address] [place] [address] Dr. Alejandrina Feng Hematocrit (Bld) [Volume fraction] 45.1 % Normal 36.0-48.0 [facility] Comment on above: Performed By: #### C BC #### [facility] [address] [place] [address] Dr. Alejandrina Feng Hemoglobin (Bld) [Mass/Vol] 14.4 g/dL Normal 12.0-16.0 [facility] Comment on above: Performed By: #### C BC #### [facility] [address] [place] [address] Dr. Alejandrina Feng IG # 0.05 10e3/ul Critically high 0.00-0.03 [facility] Comment on above: Performed By: #### C BC #### [facility] [address] [place] [address] Dr. Alejandrina Feng IG % 0.4 % Normal 0.0-0.5 [facility] Comment on above: Performed By: #### C BC #### [facility] [address] [place] [address] Dr. Alejandrina Feng LYMPH # 1.6 103/ul Normal 1.2-3.8 [facility] Comment on above: Performed By: #### C BC #### [facility] [address] [place] [address] Dr. Alejandrina Feng Lymphocytes/100 WBC (Bld) 11.2 % Critically low 20.5-60.0 [facility] Comment on above: Performed By: #### C BC #### [facility] [address] [place] [address] Dr. Alejandrina Feng MANUAL DIFF REQ NO Normal [facility] Comment on above: Performed By: #### C BC #### [facility] [address] [place] [address] Dr. Alejandrina Feng MCH (RBC) [Entitic mass] 28.0 pg Normal 26.7-34.0 [facility] Comment on above: Performed By: #### C BC #### [facility] [address] [place] [address] Dr. Alejandrina Feng MCHC (RBC) [Mass/Vol] 31.9 g/dL Normal 29.9-35.2 [facility] Comment on above: Performed By: #### C BC #### [facility] [address] [place] [address] Dr. Alejandrina Feng MCV (RBC) [Entitic vol] 87.6 fL Normal 81.0-99.0 [facility] Comment on above: Performed By: #### C BC #### [facility] [address] [place] [address] Dr. Alejandrina Feng MONO # 0.6 103/ul Normal 0.3-0.8 [facility] Comment on above: Performed By: #### C BC #### [facility] [address] [place] [address] Dr. Alejandrina Feng Monocytes/100 WBC (Bld) 4.5 % Normal 1.7-12.0 [facility] Comment on above: Performed By: #### C BC #### [facility] [address] [place] [address] Dr. Alejandrina Feng NEUT # 11.4 103/ul Critically high 1.4-6.5 [facility] Comment on above: Performed By: #### C BC #### [facility] [address] [place] [address] Dr. Alejandrina Feng Neutrophils/100 WBC (Bld) 82.1 % Critically high 43.0-75.0 [facility] Comment on above: Performed By: #### C BC #### [facility] [address] [place] [address] Dr. Alejandrina Feng Platelet mean volume (Bld) [Entitic vol] 9.1 fL Critically low 9.5-13.5 [facility] Comment on above: Performed By: #### C BC #### [facility] [address] [place] [address] Dr. Alejandrina Feng PLT 363 103/ul Normal 150-450 [facility] Comment on above: Performed By: #### C BC #### [facility] [address] [place] [address] Dr. Alejandrina Feng RBC 5.15 106/ul Normal 4.20-5.40 [facility] Comment on above: Performed By: #### C BC #### [facility] [address] [place] [address] Dr. Alejandrina Feng WBC 13.9 103/ul Critically high 4.0-11.0 [facility] Comment on above: Performed By: #### C BC #### [facility] [address] [place] [address] Dr. Alejandrina Feng PROF 14(COMP METB)on 022 Albumin [Mass/Vol] 4.0 g/dL Normal 3.4-5.0 [facility] Comment on above: Performed By: #### P THINT #### [facility] [address] [place] [address] Dr. Alejandrina Feng Albumin/Globulin [Mass ratio] 0.8 {ratio} Normal [facility] Comment on above: Performed By: #### P THINT #### [facility] [address] [address] [address] Alejandrina Feng ALP [Catalytic activity/Vol] 200 U/L Critically high 46-116 [facility] Comment on above: Performed By: #### P THINT #### [facility] [address] [address] [address] Alejandrina Feng ALT [Catalytic activity/Vol] 29 U/L Normal 14-59 [facility] Comment on above: Performed By: #### P THINT #### [facility] [address] [place] [address] Dr. Alejandrina Feng Anion gap [Moles/Vol] 12.2 mmol/L Normal [facility] Comment on above: Performed By: #### P THINT #### [facility] [address] [place] [address] Dr. Alejandrina Feng AST [Catalytic activity/Vol] 25 U/L Normal 15-37 [facility] Comment on above: Performed By: #### P THINT #### [facility] [address] [place] [address] Dr. Alejandrina Feng Bilirubin [Mass/Vol] 0.4 mg/dL Normal 0.2-1.0 [facility] Comment on above: Performed By: #### P THINT #### [facility] [address] [address] [address] Alejandrina Feng Calcium [Mass/Vol] 9.5 mg/dL Normal 8.5-10.1 [facility] Comment on above: Performed By: #### P THINT #### [facility] [address] [place] [address] Dr. Alejandrina Feng Chloride [Moles/Vol] 101 mmol/L Normal 98-107 [facility] Comment on above: Performed By: #### P THINT #### [facility] [address] [address] [address] Alejandrina Feng CO2 [Moles/Vol] 25.8 mmol/L Normal 21.0-32.0 [facility] Comment on above: Performed By: #### P THINT #### [facility] [address] [address] [address] Alejandrina Feng Creatinine [Mass/Vol] 0.69 mg/dL Normal 0.55-1.02 [facility] Comment on above: Performed By: #### P THINT #### [facility] [address] [address] [address] Alejandrina Feng EGFR-AF MONTSERRATIAN >60 Normal >=60 [facility] Comment on above: Performed By: #### P THINT #### [facility] [address] [address] [address] Alejandrina Feng EGFR-NON AF MONTSERRATIAN >60 Normal >=60 [facility] Comment on above: Performed By: #### P THINT #### [facility] [address] [address] [address] Alejandrina Feng Globulin (S) [Mass/Vol] 4.8 g/dL Normal [facility] Comment on above: Performed By: #### P THINT #### [facility] [address] [address] [address] Alejandrina Feng Glucose [Mass/Vol] 96 mg/dL Normal 74-106 [facility] Comment on above: Performed By: #### P THINT #### [facility] [address] [address] [address] Alejandrina Feng Potassium [Moles/Vol] 4.0 mmol/L Normal 3.5-5.1 [facility] Comment on above: Performed By: #### P THINT #### [facility] [address] [address] [address] Alejandrina Feng Protein [Mass/Vol] 8.8 g/dL Critically high 6.4-8.[address] [facility] Comment on above: Performed By: #### P THINT #### [facility] [address] [address] [address] Alejandrina Feng Sodium [Moles/Vol] 135 mmol/L Critically low 136-145 [facility] Comment on above: Performed By: #### P THINT #### [facility] [address] [address] [address] Alejandrina Feng Urea nitrogen [Mass/Vol] 18.0 mg/dL Normal 7.0-18.0 [facility] Comment on above: Performed By: #### P THINT #### [facility] [address] [address] [address] Alejandrina Feng Urea nitrogen/Creatinine [Mass ratio] 26.1 mg/mg Normal [facility] Comment on above: Performed By: #### P THINT #### [facility] [address] [place] [address] Dr. Alejandrina Feng TROPONIN, HIGH SENSITIVITYon 02-22-2022 HSTROP 7.4 pg/mL Normal 4.0-51.3 [facility] Comment on above: Result Comment: CUT- OFF POINTS HAVE BEEN ESTABLISHED BASED ON THE FOURTH UNIVERSAL DEFINITIONS OF MYOCARDIAL INFARCTION. THE UPPER REFERENCE LIMIT (URL) OF TROPONIN, DEFINED THE 99TH PERCENTILE OF cTnI DISTRIBUTION IN A REFERENCE POPULATION, HAS BEEN CONFIRMED THE DECISION THRESHOLD FOR SC DIAGNOSIS. Performed By: #### H STROPN #### [facility] [address] [place] [address] Dr. Alejandrina Feng HSTROP 6.4 pg/mL Normal 4.0-51.3 [facility] Comment on above: Result Comment: CUT- OFF POINTS HAVE BEEN ESTABLISHED BASED ON THE FOURTH UNIVERSAL DEFINITIONS OF MYOCARDIAL INFARCTION. THE UPPER REFERENCE LIMIT (URL) OF TROPONIN, DEFINED THE 99TH PERCENTILE OF cTnI DISTRIBUTION IN A REFERENCE POPULATION, HAS BEEN CONFIRMED THE DECISION THRESHOLD FOR SC DIAGNOSIS. Performed By: #### P THINT #### [facility] [address] [place] [address] Dr. Alejandrina Feng XR CHEST 1 Von [...] by: EVERETT ERNANDEZ Date: 2022-02-22 13:20 Normal [facility] OSMOLALITYon 02-02-2022 Osmolality [Osmolality] 284 mosm/kg Normal 280-301 [facility] Comment on above: Performed By: #### P THINT #### [facility] [address] [place] [address] Dr. Alejandrina Feng OSMOLALITY URINEon 2 Osmolality, Urine 629 mOsmol/kg Normal [facility] Comment on above: Result Comment: 24 h r : 300 - 900 Random: 50 - 1400 After 12hr fluid restriction: >850 Performed By: #### O SMOU #### [facility] [address] [place] [address] Dr. Alejandrina Feng PTH INTACTon 02-01-2022 PTH, Intact 42 pg/mL Normal 15-65 [facility] Comment on above: Performed By: #### P THINT #### [facility] [address] [place] [address] Dr. Alejandrina Feng PROF CHEM 8 (BAS METB)on Anion gap [Moles/Vol] 12.7 mmol/L Normal [facility] Comment on above: Performed By: #### P THINT #### [facility] [address] [place] [address] Dr. Alejandrina Feng Calcium [Mass/Vol] 8.7 mg/dL Normal 8.5-10.1 [facility] Comment on above: Performed By: #### P THINT #### [facility] [address] [place] [address] Dr. Alejandrina Feng Chloride [Moles/Vol] 100 mmol/L Normal 98-107 [facility] Comment on above: Performed By: #### P THINT #### [facility] [address] [place] [address] Dr. Alejandrina Feng CO2 [Moles/Vol] 27.7 mmol/L Normal 21.0-32.0 [facility] Comment on above: Performed By: #### P THINT #### [facility] [address] [place] [address] Dr. Alejandrina Feng Creatinine [Mass/Vol] 0.65 mg/dL Normal 0.55-1.02 [facility] Comment on above: Performed By: #### P THINT #### [facility] [address] [place] [address] Dr. Alejandrina Feng EGFR-AF MONTSERRATIAN >60 Normal >=60 [facility] Comment on above: Performed By: #### P THINT #### [facility] [address] [place] [address] Dr. Alejandrina Feng EGFR-NON AF MONTSERRATIAN >60 Normal >=60 [facility] Comment on above: Performed By: #### P THINT #### [facility] [address] [place] [address] Dr. Alejandrina Feng Glucose [Mass/Vol] 103 mg/dL Normal 74-106 [facility] Comment on above: Performed By: #### P THINT #### [facility] [address] [place] [address] Dr. Alejandrina Feng Potassium [Moles/Vol] 3.4 mmol/L Critically low 3.5-5.1 [facility] Comment on above: Performed By: #### P THINT #### [facility] [address] [place] [address] Dr. Alejandrina Feng Sodium [Moles/Vol] 137 mmol/L Normal 136-145 [facility] Comment on above: Performed By: #### P THINT #### [facility] [address] [place] [address] Dr. Alejandrina Feng Urea nitrogen [Mass/Vol] 15.0 mg/dL Normal 7.0-18.0 [facility] Comment on above: Performed By: #### P THINT #### [facility] [address] [place] [address] Dr. Alejandrina Feng Urea nitrogen/Creatinine [Mass ratio] 23.1 mg/mg Normal [facility] Comment on above: Performed By: #### P THINT #### [facility] [address] [place] [address] Dr. Alejandrina Feng SODIUM RANDOM URINEon 2021 Sodium (U) [Moles/Vol] 74 mmol/L Normal 30-90 [facility] Comment on above: Performed By: #### N AU #### [facility] [address] [place] [address] Dr. Alejandrina Feng TSHon 01-31-2022 TSH 0.791 uIU/mL Normal 0.358-3.[address] [facility] Comment on above: Performed By: #### P THINT #### [facility] [address] [place] [address] Dr. Alejandrina Feng TSH RANGE SEE BELOW Normal [facility] Comment on above: Result Comment: <0.3 4 UIU/ml HYPERTHYROID 0.34-5.60 UIU/ml EUTHYROID >5.60 UIU/ml HYPOTHYROID Performed By: #### P THINT #### [facility] [address] [place] [address] Dr. Alejandrina Feng Vital Signs Date Time Vital Sign Value Performing Clinician Facility 10-09-2023 10:00-0500 Body height 162.56 cm Segun Kingsley Other [facility] Other 10-09-2023 10:00-0500 Body mass index (BMI) [Ratio] 25.81 kg/m2 Segun [facility] Other [facility] Other 10-09-2023 10:00-0500 Body weight 68.22 kg Segun [facility] Other [facility] Other 10-09-2023 10:00-0500 Diastolic blood pressure 83 mm[Hg] [facility] Other [facility] Other 10-09-2023 10:00-0500 Respiratory rate 12 /min Seg[facility] Other [facility] Other 10-09-2023 10:00-0500 Systolic blood pressure 126 mm[Hg] Segun Ball Other [facility] Other 09-19-2023 13:45-0500 Body height 162.56 cm Segun Ball Other [facility] Other 09-19-2023 13:45-0500 Body mass index (BMI) [Ratio] 26.02 kg/m2 Segun Ball Other [facility] Other 09-19-2023 13:45-0500 Body weight 68.77 kg Segun Ball Other [facility] Other 09-19-2023 13:45-0500 Diastolic blood pressure 79 mm[Hg] Segun Ball Other [facility] Other 09-19-2023 13:45-0500 Respiratory rate 12 /min Segun Ball Other [facility] Other 09-19-2023 13:45-0500 Systolic blood pressure 123 mm[Hg] Segun Ball Other [facility] Other 04-10-2023 11:00-0400 Body height 162.56 cm Segun Ball Other [facility] Other 04-10-2023 11:00-0400 Body mass index (BMI) [Ratio] 26.29 kg/m2 Segun Ball Other [facility] Other 04-10-2023 11:00-0400 Body weight 69.49 kg Segun Ball Other [facility] Other 04-10-2023 11:00-0400 Diastolic blood pressure 74 mm[Hg] Segun Ball Other [facility] Other 04-10-2023 11:00-0400 Respiratory rate 12 /min Segun Ball Other [facility] Other 04-10-2023 11:00-0400 Systolic blood pressure 108 mm[Hg] Segun Ball Other [facility] Other 01-25-2023 12:30-0400 Body height 162.56 cm Segun Ball Other [facility] Other 01-25-2023 12:30-0400 Body mass index (BMI) [Ratio] 26.05 kg/m2 Segun Ball Other [facility] Other 01-25-2023 12:30-0400 Body weight 68.86 kg Segun Ball Other [facility] Other 01-25-2023 12:30-0400 Diastolic blood pressure 81 mm[Hg] Segun Ball Other [facility] Other 01-25-2023 12:30-0400 Respiratory rate 12 /min Segun Ball Other [facility] Other 01-25-2023 12:30-0400 Systolic blood pressure 119 mm[Hg] Segun Ball Other [facility] Other 12-06-2022 11:00-0400 Body height 162.56 cm Segun Ball Other [facility] Other 12-06-2022 11:00-0400 Body mass index (BMI) [Ratio] 25.98 kg/m2 Segun Ball Other [facility] Other 12-06-2022 11:00-0400 Body weight 68.68 kg Segun Kingsley Other [facility] Other 12-06-2022 11:00-0400 Diastolic blood pressure 74 mm[Hg] Segun Sancho Other [facility] Other 12-06-2022 11:00-0400 Respiratory rate 16 /min Segun Sancho Other [facility] Other 12-06-2022 11:00-0400 Systolic blood pressure 117 mm[Hg] Segun Sancho Other [facility] Other 07-13-2022 13:16-0400 Blood Pressure Location NOEEBONY AUGUSTINERY [facility] 07-13-2022 13:16-0400 Diastolic blood pressure 88 mm[Hg] NOE SVITLANA [facility] 07-13-2022 13:16-0400 Heart rate 79 /min NOE SVITLANA [facility] 07-13-2022 13:16-0400 Respiratory rate 16 /min NOE SVITLANA [facility] 07-13-2022 13:16-0400 Systolic blood pressure 138 mm[Hg] NOE SVITLANA [facility] Encounters Encounter Date Encounter Type Care Provider Facility Start: 02-26-2024 ambulatory Enrique Boss ty:ROSE Mcmahan Start: 10-10-2023 End: 10-10-2023 ambulatory Segun Kingsley Other [facility] Other Start: 10-10-2023 Telephone encounter Segun [facility] Start: 10-09-2023 End: 10-09-2023 ambulatory Segun Ball Other [facility] Other Start: 10-09-2023 Office outpatient vi sit 25 minutes Segun Ball [facility] Start: 09-22-2023 End: 09-22-2023 ambulatory Segun Ball Other [facility] Other Start: 09-22-2023 Telephone encounter Segun Ball [facility] Start: 09-19-2023 End: 09-19-2023 ambulatory Segun Ball Other [facility] Other Start: 09-19-2023 Office outpatient vi sit 15 minutes Segun Ball [facility] Start: 09-13-2023 Telephone encounter Segun Ball [facility] Start: 09-13-2023 End: 09-13-2023 [facility] [employer] [facility] Start: 07-19-2023 End: 07-19-2023 ambulatory Segun Ball Other [facility] Other Start: 07-19-2023 Office outpatient vi sit 15 minutes Segun Ball [facility] Start: 06-20-2023 End: 06-20-2023 ambulatory Segun Ball Other [facility] Other Start: 06-20-2023 Telephone encounter Segun Ball [facility] Start: 04-13-2023 End: 04-13-2023 ambulatory Segun Ball Other [facility] Other Start: 04-13-2023 Telephone encounter Segun Ball [facility] Start: 04-10-2023 End: 04-10-2023 ambulatory Segun Ball Other [facility] Other Start: 04-10-2023 Encounter for genera l adult medical examination without abnormal findings Segun Ball [facility] Start: 04-10-2023 Periodic preventive med est patient 65yrs& older Segun Kingsley [facility] Start: 02-13-2023 End: 02-14-2023 ambulatory Enrique VSÁQUEZ Facility: [facility] Start: 01-25-2023 End: 01-25-2023 ambulatory Segun Kingsley Other [facility] Other Start: 01-25-2023 Office outpatient vi sit 15 minutes Segun Kingsley [facility] Start: 01-20-2023 End: 01-21-[address] ENRIQUE VÁSQUEZ . Facility:[facility] Start: 12-06-2022 End: 12-06-2022 ambulatory Segun Kingsley Other [facility] Other Start: 12-06-2022 Office outpatient vi sit 25 minutes Segun Kingsley [facility] Start: 10-27-2022 End: 10-28-[address] ENRIQUE VÁSQUEZ . Facility:[facility] Start: 08-26-2022 End: 08-27-[address] ELOINA DUMONT Facility:[facility] Start: 07-13-2022 End: 07-14-2022 ambulatory Jackson Bach Facility:[facility] Start: 07-13-2022 End: 07-13-2022 Patient encounter procedure NOE SHANE [facility] Start: 07-06-2022 End: 07-07-[address] SEGUN KINGSLEY Facility:[facility] Start: 06-20-2022 End: 06-21-[address] SEGUN KINGSLEY Facility:[facility] Start: 04-01-2022 Adult health examination Segun Kingsley Other [facility] Other Start: 03-11-2022 End: 03-11-[address] [...] NOE SHANE End: 07-19-2021 Hyperlipidemia screening Segun Kingsley Other Hysterectomy NOE SHANE Screening for malign ant neoplasm of breast [facility] Other Immunizations Immunization Date Immunization Notes Care Provider Fa quoc 06-22-2022 influenza virus vaccine, split virus (incl. purified surface antigen) Segun Kingsley Other [facility] Other 06-22-2022 influenza, high dose seasonal, preservative-free Segun Kingsley Other [facility] Other 04-01-2022 pneumococcal conjuga te vaccine, 13 valent NOE SHANE [facility] 09-01-2021 COVID-19 Vaccine Pfi zer - Documentation Purposes Only Segun Kingsley Other [facility] Other 09-01-2021 SARS-CoV-2 (COVID-19 ) Ad26 vaccine, recombinant NOE SHANE [facility] 07-19-2021 influenza virus vaccine, split virus (incl. purified surface antigen) Segun Kingsley Other [facility] Other 05-26-2021 influenza virus vaccine, unspecified formulation NOE SHANE [facility] 01-05-2021 diphtheria, tetanus toxoids and acellular pertussis vaccine, unspecified formulation Segun Kingsley Other [facility] Other 01-05-2021 tetanus toxoid, redu agustin diphtheria toxoid, and acellular pertussis vaccine, adsorbed NOEEBONY SHANE [facility] 12-25-2020 COVID-19, mRNA, LNP- S, PF, 30 mcg/0.3 mL dose NOE SVITLANA [facility] Comment on above: Reason for Medicatio n: Prophylaxis 12-04-2020 COVID-19, mRNA, LNP- S, PF, 30 mcg/0.3 mL dose NOE SVITLANA [facility] Comment on above: Reason for Medicatio n: Prophylaxis 08-14-2020 pneumococcal polysaccharide vaccine, 23 valent Segun Kingsley Other [facility] Other 08-11-2020 influenza virus vaccine, split virus (incl. purified surface antigen) Segun Kingsley Other [facility] Other 08-10-2020 influenza virus vaccine, unspecified formulation NOE SVITLANA [facility] 07-25-2018 influenza virus vaccine, split virus (incl. purified surface antigen) Segun Kingsley Other [facility] Other 07-25-2018 influenza virus vaccine, unspecified formulation NOE SVITLANA [facility] Marj 10-12-2017 influenza virus vaccine, split virus (incl. purified surface antigen) Segun Kingsley Other [facility] Other Payers Date Payer Category Payer Unknown [id number] 2. [id number] 1955 Unknown [id number] 2.16.84 [id number] 1955 Unknown [id number] 2.16.84 [id number] 1954 Unknown [id number] 2.16.84 [id number] 1954 Unknown [id number] 2.16.84 [id number] 1954 Unknown [id number] 2.16.84 [id number] 1954 Unknown [id number] 2.16.84 [id number] 1954 Unknown [id number] 2.16.84 [id number] 1954 Unknown [id number] 2.16.84 [id number] 1954 Unknown [id number] 2.16.84 [id number] 1954 Unknown [id number] 2.16.84 [id number] 1954 Unknown [id number] 2.16.84 [id number] 1954 Unknown [id number] 2.16.8 [id number] 1954 Unknown [id number] 2.16.8 [id number] 1954 Unknown [id number] 2.16.840 .[id number] Social History Date Type Detail Facility Start: 07-13-2022 Tobacco smoking status Never s moked tobacco (finding) [facility] Tobacco smoking status Never [facility] Sex Assigned At Female [facility] Functional Status Date Assessment Result Facility 07-13-2022 Functional Status N/A [facility] Clinical Notes 07-13-2022 to 10-10-2023 Note Date & Type Note Facility 10-10-2023 Evaluation note Encounter Date Diagnosis Assessment Notes Sep, COVID- 19 (ICD-1 0 - U07.1) [facility] Other 01-15-2024 Evaluation note* Encounter Date Diagnosis [...] interruption. Instructed to avoid d/c meds abruptly [facility] Other 12-26-2023 Evaluation note* Encounter Date Diagnosis [...] needed - XR to r/o compression fx [facility] Other 12-26-2023 Evaluation note* Encounter Date Diagnosis [...] needed - XR to r/o compression fx [facility] Other 12-20-2023 Evaluation note* Encounter Date Diagnosis Assessment Notes Treatment Notes Treatment Clinical Notes Aug, Nontoxic single thyroid nodule (ICD-10 - E04.1) Serial US w/ stable size and appearance. Referred to ENT w/ no further scans recommended. [facility] Other 10-25-2023 Evaluation note* Encounter Date Diagnosis [...] Amlodipine to 5mg qd while taking Paxlovid [facility] Other 07-17-2023 Evaluation note* Encounter Date Diagnosis [...] SBE and yearly mammogram - due in Oct [facility] Other 05-03-2023 Evaluation note* Encounter Date Diagnosis [...] pneumonia Due for COVID booster and Shingrix [facility] Other 03-14-2023 Evaluation note* Encounter Date Diagnosis Assessment Notes Treatment Notes Treatment Clinical Notes Nov, Primary hypertension (ICD-10 - I10) This patient is instructed to consume a healthy, low-fat, low-salt diet. They are also encouraged to continue exercise to achieve/maintain a normal BMI. 14 Nov, 2022 Elevated cholesterol (ICD-10 - E78.00) Diet and [...] or drinking prior to bedtime. Continue PPI [facility] Other 10-19-2022 Hospital Discharge instructions Patient Education 07/13/2022 13:30:11 Kidney Stones, [id number] Kidney Stones Kidney stones are rock-like masses [...] Follow these instructions at home: Medicines Take jgvy-[id number] and prescription medicines only as told by [...] Kidney Foundation (NKF): www.kidney.org [facility] (UCF): www.urologyhealth.org Contact a doctor if: You have [...] 02/27/2009 Document Revised: 01/28/2020 Document Reviewed: 01/28/2020 [employer] Patient Education 2019 [employer]. Follow Up Care 10/18/2021 12:21:40 With:SVITLANA IBARRA, NOE Anderson, URL Address: [address] [place] [address] [phone] When: Unknown [facility] [employer] 10-19-2022 Evaluation + Plan note Future Scheduled Tests Laboratory* Basic Metabolic Panel 07/13/22 [facility] [employer] evaluation noteNo [facility] [employer] Other History general Narrative - Reported* Type [...] GENEVA/BSO 2010 Hospitalization History SEE SURGICAL HX [place] [employer] Other History general Narrative - ReportedCornish [employer] Other Hospital course Narrative No data available for this section [facility] [employer] progress note No data available for this section [facility] [place] reason for referral (narrative)* Reason Referral for treatme nt of chronic low back pain Diagnosis 1 Acute bilateral low back pain without sciatica (M54.50) Diagnosis 2 Lumbar spondylosis ( M47.816) Referral Organization [facility] Becca rivas Referring Provider First Name Segun Referring Provider Last Name Sancho Referring Provider Specialty Internal Me dicine Referred Organization [facility] Referred Address [address], [place],[address] Referred Provider Specialty Pain Medicin e Referral [...] for injections. Clinical Notes Include XR results [facility] Other Summary Purpose Family History No Family History Records FoundNo Family History Records FoundNo Family History Records Found Advance Directives No Advanced Directives Records FoundNo Advanced Directives Records FoundNo Advanced Directives Records Found Additional Source Comments Patient Care team informatio n (unrecognized section and content) Personnel Name: SEGUN KINGSLEY DO Address: Address: [address] [facility], [place], [place] [address] REASON FOR VISIT (unrecogniz ed section and content) 3 month Follow upPossible Sp rondar [id number] COVID +No Informationback painback painXR results6 monthCOVID + INFORMATION SOURCE (unrecogn ized section and content) DATE CREATED AUTHOR 01/27/2023 [facility] DATE CREATED AUTHOR AUTHOR'S ORGANIZ ATION 09/13/2023 [facility] DATE CREATED AUTHOR AUTHOR'S ORGANIZ ATION 09/14/2023 [facility] EPIC FOR RECORDS PERTAINING [...] BE BASED ON THE PRIMARY CLINICAL RECORDS. [facility] provides no warranty or guarantee of the accuracy or completeness of information in this document.
--- NOTE | 2023-11-29 11:47 | PM.CN ---
Consult Note: HPI Data of Consult Patient: known to practice within the last 3 years Requesting Physician: Concetta Sharma NP Primary Care Provider: Segun Kingsley DO Consult Narrative Reason for consult: f/u Narrative: Elda Lee a pleasant 68 year old female presents for evaluation and management of chronic low back pain. Recently underwent right L4-5 L5-S1 facet medial branch thermal RFA with >90% improvement in low back pain. Pain 01/0, intermittent 1-2 pressure improved by tylenol and resting. Patient very pleased with response to RFA. cc:: CC: Concetta Sharma NP Review of Systems ROS Status of ROS 10 or more systems reviewed and unremarkable except as noted in history and below [facility] Medical History Thyroid nodule ?E04.1 - Nontoxic single thyroid nodule (ICD-10) Low back pain ?M54.50 - Low back pain, unspecified (ICD-10) Osteoarthritis ?M19.90 - Unspecified osteoarthritis, unspecified site (ICD-10) Heartburn ?R12 - Heartburn (ICD-10) Kidney stones ?N20.0 - Calculus of kidney (ICD-10) Hypertension ?I10 - Essential (primary) hypertension (ICD-10) Surgical History H/O: hysterectomy ?Z90.710 - Acquired absence of both cervix and uterus (ICD-10) Meds Home Medications and Allergies Home Medications Medication Instructions Recorded Confirmed Type amlodipine 10 mg tablet 10 mg PO DAILY 10/04/23 10/31/23 History atorvastatin 40 mg tablet 40 mg PO DAILY 10/04/23 10/31/23 History baclofen 10 mg tablet 5 mg PO DAILY 10/04/23 10/31/23 History fluoxetine 40 mg capsule 40 mg PO DAILY 10/04/23 10/31/23 History hydrochlorothiazide 25 mg tablet 25 mg PO DAILY 10/04/23 10/31/23 History potassium chloride 20 mEq oral 50 meq PO DAILY 10/04/23 10/31/23 History packet (Klor-Con) temazepam 15 mg capsule 15 mg PO .QHS 10/04/23 10/31/23 History diazepam 10 mg tablet (Valium) 10 mg PO ONCE PRN sedation 10/26/23 10/31/23 Rx hours #1 tab Allergies Allergy/AdvReac Type Severity Reaction Status Date / Time No Known Drug Allergies Allergy Verified 10/31/23 08:16 Exam Constitutional Documenting provider has reviewed patient's vital signs: yes Common normals: no apparent distress, oriented x3, healthy appearing, alert and well nourished General appearance: cooperative HENKY Common normals: normocephalic, hearing grossly normal bilaterally and moist oral mucous membranes Head and scalp: normocephalic Eye Common normals: PERRL Pupil: PERRL Neck & C-Spine Common normals: full ROM General: normal visual inspection Chest Common normals: inspection of chest normal Respiratory Common normals: normal respiratory effort, no retractions and no use of accessory muscles Back & Pelvis Thoracic spine/upper back: normal to inspection and thoracic ROM normal Lumbar spine/lower back: normal to inspection, lumbar ROM normal and straight leg raise negative bilaterally Sacroiliac joints: SI joints normal Extremity Common normals: normal to inspection and full ROM Neuro Common normals: oriented x3, CN's II-XII intact bilaterally, moves all extremities, no focal motor deficits, no sensory deficits noted, deep tendon reflexes 2+ bilaterally and gait normal Sensorium/orientation: alert Motor exam: strength 5/5 throughout and no movement abnormalities noted Psych Common normals: mental status grossly normal, thought process normal, cooperative, affect normal, speech normal and activity/motor behavior normal Speech: normal speech Thought process: normal thought process Assessment and Plan Assessment and Plan (1) Lumbar spondylosis: Plan continue tylenol PRN continue HEP as tolerated f/u as needed
== END 2023-11-29 11:26 | disposition home or self-care (01) ==
LOC: PM 11:26
PROVIDERS: PCP Internal Medicine; Visit Provider Nurse Practitioner
DX: M47.816 Spondylosis without myelopathy or radiculopathy, lumbar region (principal)
CPT/HCPCS: G0463

== ENCOUNTER 2023-12-19 09:30 | Outpatient (OUT) | payer OTHER, SELFPAY ==
--- NOTE | 2023-12-19 09:35 | XR_ITS ---
The [address] [address] Patient Name: ELBA CORONA MRN: [id number] date: 1955 Sex: F Assigned Patient Location: [facility] Current Patient Location: Accession/Order Number: [id number] Exam Date: 12/19/2023 09:45 Report Date: 12/20/2023 06:58 At the request of: LENNY BALDWIN Procedure: XR foot RT min 3V PROCEDURE: XR foot RT min 3V HISTORY: right foot pain M79.671 ; lateral foot pain in region of metatarsals since falling 3 days ago COMPARISON: None. FINDINGS: BONES:Tiny ossification at base of 5th metatarsal favoring a degenerative enthesophyte rather than fracture fragment. Mild degenerative changes of the second third tarsal-metatarsal joints. Mild bunion formation. SOFT TISSUES:No visible soft tissue swelling. EFFUSION:None visible. OTHER: Negative. XR/XR foot RT min 3V IMPRESSION: 1. Possible tiny cortical avulsion fracture from base of 5th metatarsal, but chronic degenerative changes are favored. 2. Mild degenerative changes of the midfoot and mild bunion formation. Electronically authenticated by: TRACY MEJIA Date: 12/20/2023 06:58
== END 2023-12-19 09:31 | disposition home or self-care (01) ==
LOC: RAD 09:30
PROVIDERS: PCP Internal Medicine; Visit Provider Internal Medicine
DX: M79.671 Pain in right foot (principal); M21.611 Bunion of right foot
CPT/HCPCS: 73630

== ENCOUNTER 2024-02-08 13:22 | Outpatient (OUT) | payer OTHER, SELFPAY ==
--- OUTSIDE RECORDS SUMMARY | 2024-02-08 13:39 | XMS_ITS | CCD ---
Author Organization [facility] Care Team Providers Care Registered Nurse Post Partum Name Role Phone SEGUN KINGSLEY Primary Care Physician [phone] Segun Kingsley VÁSQUEZ ., DR RENEE Attending Unavailable VÁSQUEZ [...] Unavailable AWAIS, DR EVERETT Salazar Consulting Unavailable BALL, DR GALVEZ Attending Unavailable BALL, [...] Care Unavailable PERNELL ., DEEPTI Admitting Unavailable PERNELL ., DEEPTI Attending Unavailable AWAIS, DR EVERETT Salazar Consulting Unavailable WILFRIDO ., STEPHAN Consulting Unavailable VÁSQUEZ, Enrique Layne Attending Unavailable Enrique VÁSQUEZ Attending Unavailable ELOINA DUMONT Attending Unavailable SEGUN KINGSLEY Referring Unavailable Allergies Allergy Classification Reported Allergen(s) Allergy Type Date of Onset Reaction(s) Facility (2 sources) patient allergy list reviewed by nurse or physicia Propensity to adverse reactions 5 Comment:Done Admeld Other (1 source) No Known Medication Allergies; Translations: [No Known Medication Allergies] Propensity to adverse reactions (disorder) [facility] Repository Medications Current Medications Medication Drug Class(es) Dates Sig (Normalized) Sig (Original) acetaminophen 500 mg oral tablet (1 source) Start: 05-05-2021 take 500 mg by mouth twice daily Tylenol 500 mg, Oral, BID Start Date: 05/05/21 Status: Ordered [id number] actuat albuterol 0.09 mg/actuat metered dose [...] Inhalation every 4 hrs Oct, Not-Taking amLODIPine 10 mg oral tablet (15 sources) Dihydropyridine Calcium Channel Emmanuel Start: 12-18-2023 take 10 mg by mouth once daily Amlodipine Active 10 MG PO Daily December 18, 2023 12:00am Start: 05-05-2021 take 1 tablet by levon th once daily amLODIPine 5 mg Tab 5 mg = 1 tab(s), Oral, Daily Start Date: 05/05/21 Status: Ordered take 1 tablet by levon th once daily atorvastatin (17 sources) HMG-CoA Reductase Inhibitor Start: 11-29-2023 take 1 tablet by mouth once daily in the evening Atorvastatin Active 0 .ROUTE .COMPLEX November 29, 2023 10:55pm TAKE ONE TABLET BY MOUTH ONCE DAILY IN THE EVENING Start: 11-29-2023 End: 11-29-2023 take 40 mg by mouth once daily in the evening Atorvastatin Discontinued 40 MG PO Every evening November 29, 2023 1:00am November 29, 2023 10:55pm Start: 05-05-2021 take 1 tablet by levon th once daily atorvastatin 40 mg Tab 40 mg = 1 tab(s), Oral, Daily Start Date: 05/05/21 Status: Ordered azelastine hydrochloride 0.137 mg/actuat metered dose nasal spray (14 sources) Histamine-1 Receptor Antagonist Start: 12-18-2023 Azelastine Active 1 SPRAY INTRANASAL Twice daily December 18, 2023 12:00am take 1 puff(s) nasal route twice daily [...] Status: Ordered FLUoxetine 40 mg oral capsule (15 sources) Serotonin Reuptake Inhibitor Start: 12-18-2023 take 40 mg by mouth once daily Fluoxetine Active 40 MG PO Daily December 18, 2023 12:00am Start: 05-05-2021 take 1 capsule by mo [facility] once daily FLUoxetine 40 mg Cap 40 mg = 1 cap(s), Oral, Daily Start Date: 05/05/21 Status: Ordered fluticasone propionate 0.05 mg/actuat metered dose nasal spray (12 sources) Corticosteroid Start: 10-26-2019 take 1 spray(s) nasa l route once daily Start: 10-26-2019 take 1 spray(s) nasa l route once daily Fluticasone Propionate 50 MCG/ACT 1 spray in each nostril Nasally Once a day for 21 days Oct, Not-Taking Start: 10-26-2019 hydroCHLOROthiazide 25 mg oral tablet (15 sources) Thiazide Diuretic Start: 12-18-2023 take 25 mg by mouth once daily Hydrochlorothiazide Active 25 MG PO Daily December 18, 2023 12:00am Start: 06-08-2022 take 1 tablet by levon th once daily hydrochlorothiazide 25 mg Tab 25 mg = 1 tab(s), Oral, Daily, # 90 tab(s), Refills(s) 3, Pharmacy: [id number], 163, cm, 10/18/21 11:50:00 EST, Height/Length Dosing, 70, kg, 10/18/21 11:50:00 EST, Weight Dosing Start Date: 06/08/22 Status: Ordered Lisinopril (12 sources) Angiotensin Converting Enzyme Inhibitor Lisinopril Not-T aking/PRN Lisinopril Not-T aking methylPREDNISolone 4 mg oral tablet (12 sources) Corticosteroid Start: 10-26-2019 Start: 10-26-2019 omeprazole 40 mg delayed release oral capsule (15 sources) Proton Pump Inhibitor Start: 12-18-2023 take 40 mg by mouth once daily at breakfast Omeprazole Active 40 MG PO Daily December 18, 2023 12:00am ON AN EMPTY STOMACH, FOLLOWED IN 30 MINS BY BREAKFAST Start: 10-18-2021 take 1 mg by mouth [...] & Chloride 20 MEQ packet daily Active Potassium Bicarb And Chloride (2 sources) Start: 12-18-2023 Potassium Bica rb And Chloride Active 1 PACKET PO Daily December 18, 2023 12:00am temazepam 15 mg oral capsule (15 sources) Benzodiazepine Start: 12-18-2023 take 15 mg by mouth once daily at bedtime Temazepam Active 15 MG PO Daily at bedtime December 18, 2023 12:00am Start: 06-01-2023 [facility] Start: 12-01-2022 Start: 05-05-2021 [facility] daily at bedtime temazepam 15 mg Cap 15 mg = 1 cap(s), Oral, Once a day (at bedtime) Start Date: 05/05/21 Status: Ordered tiZANidine (12 sources) Central alpha-2 Adrenergic Agonist tiZANidine HCl N ot-Taking/PRN tiZANidine HCl N ot-Taking traMADol (12 sources) Opioid Agonist traMADol HCl Not -Taking/PRN traMADol HCl Not -Taking triamcinolone acetonide 0.25 mg/ml topical cream (13 sources) Corticosteroid Start: 12-18-2023 Triamcinolone Acetonide Active 1 APPLIC TOPICAL Twice daily December 18, 2023 12:00am Triamcinolone Ac etonide 0.025 % 1 application [...] 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] Onset: 02-25-2014 12-18-2023 Chronic Essential hypertension (20 sources) Hypertensive disorder; Translations: [Essential hypertension] Onset: 06-22-2022 05-05-2021 Chronic Fluid and electrolyte disorders (20 sources) Hypokalemia; Translations: [Hypokalemia] Onset: 02-02-2022 Episodic Fracture of lower limb (1 source) Fracture of unspecified metatarsal bone(s), right foot, initial encounter for closed fracture; Translations: [Closed fracture of metatarsal bone(s)] 12-27-2023 Episodic Immunizations and screening for infectious disease [...] disorder, single episode, in full remission] Onset: 01-01-1960 Chronic Osteoarthritis (1 source) Arthritis 05-05-2021 Chronic Osteoporosis (2 sources) Osteoporosis; Translations: [Age-related osteoporosis without current pathological fracture] 12-24-2023 Chronic Other circulatory disease (7 sources) Cardiovascular symptoms; Translations: [Other specified symptoms and signs involving the circulatory and respiratory systems] Episodic Other congenital anomalies (7 sources) Congenital spondylolysis of lumbosacral region; Translations: [Congenital spondylolysis, lumbosacral region] Onset: 08-22-2017 Chronic Other connective tissue disease (2 sources) Plantar fascial fibromatosis; Translations: [Plantar fascial fibromatosis] 12-19-2023 Episodic Other connective tissue disease (2 sources) Pain in right foot; Translations: [Pain in limb] 12-19-2023 Episodic Other diseases of kidney and ureters (1 [...] Onset: 01-30-2015 Chronic Other upper respiratory disease (9 sources) Allergic rhinitis due to pollen; Translations: [Allergic rhinitis due to pollen] 12-18-2023 Chronic Other upper respiratory infections (7 sources) [...] 6 Episodic Other aftercare (1 source) Other shelter (current) drug therapy; Translations: [OTH HOSPICE MUSIC THERAPY CURRENT DRUG THERAPY] Onset: 2 Episodic Other [...] Results Test Name Value Interpretation Reference Range [facility] it Physician Orderon 09-12-2023 Physician Order [id number] .00TIFF [place] RAD - MISCon 09-10-2023 RAD - MISC [id number] .00TIFF [place] Lab Reportson 08-22-2023 Lab Reports [id number]. 00TIFF [place] Reminderson 08-22-2023 Reminders - From: Selma Allen [...] clinisync. Pt states she is going to [facility] today to have lytes drawn. From: [...] Spinach (cooked), rhubarb, beets, sweet potatoes, and Mauritanian chard. ? Peanuts. ? Potato chips, st helenian fries, and baked potatoes with skin on. ? Nuts and nut products. ? Chocolate. ? If you regularly take a diuretic medicine, make sure to eat at least 1 or 2 servings of fruits or vegetables that are high in potassium each day. These include: ? Avocado. ? Banana. ? Gordon, prune, carrot, or tomato juice. ? Baked [...] fish oil, or vitamin B6. ? Take sqhm-uok-qkaipck and prescription medicines only as told by [...] [facility] [address], [place] [address]- Additional Instructions: 1 yr KUB with OV, [...] History Arthritis: Mother (more content not included)... [place] Comment on above: Result Comment: Elec tronically Signed By: Enrique VÁSQUEZ MD\.br\Date and Time Signed: 02/13/23 15:14 EDT\.br\Electronically Co-Signed By: Selma Allen\.br\Date and Time Co-Signed: 02/13/23 15:12 EDT RAD - MISCon 01-23-2023 RAD - MISC [id number] .00CD:127 Normal [facility] XR KUB [...] by: EVERETT ERNANDEZ Date: 2023-01-20 11:11 Normal [facility] Lab Reportson 10-31-2022 Lab Reports [id number] .00CD:127 Normal [facility] Physician Orderon 10-28-2022 Physician Order [id number] .00CD:127 Normal [facility] ELECTROLYTESon 10-27-2022 Anion gap [Moles/Vol] 12.4 mmol/L Normal [facility] Comment on above: Performed By: #### P THINT #### [facility] [address] [address] [address] Alejandrina Feng Chloride [Moles/Vol] 102 mmol/L Normal 98-107 [facility] Comment on above: Performed By: #### P THINT #### [facility] [address] [address] [address] Alejandrina Feng CO2 [Moles/Vol] 28.5 mmol/L Normal 21.0-32.0 [facility] Comment on above: Performed By: #### P THINT #### [facility] [address] [address] [address] Alejandrina Feng Potassium [Moles/Vol] 3.9 mmol/L Normal 3.5-5.1 [facility] Comment on above: Performed By: #### P THINT #### [facility] [address] [address] [address] Alejandrina Feng Sodium [Moles/Vol] 139 mmol/L Normal 136-145 [facility] Comment on above: Performed By: #### P THINT #### [facility] [address] [place] [address] Dr. Alejandrina Feng US THYROIDon 08-29-2022 US [...] thyroid stable. TR 3 nodule TI-RADS: The [employer] [place] TI-RADS committee's white paper recommendations for thyroid lesions classified as TR3 (mildly suspicious) are listed below: > 1.5 cm. Follow-up ultrasound in 1, 3, and 5 years. > 2.5 cm. FNA. J. Am Jose Radiol 2017;14:587-595. Electronically authenticated by: EVERETT ERNANDEZ Date: 2022-08-29 07:19 Normal [facility] XR KUB 1 VIEWon 07-14-2022 XR [...] by: JACKSON BACH Date: 2022-07-14 06:26 Normal [facility] ELECTROLYTESon 07-13-2022 Anion gap [Moles/Vol] 9.0 mmol/L Normal [facility] Comment on above: Performed By: #### E LEC #### [facility] [address] [address] [address] Alejandrina Feng Chloride [Moles/Vol] 101 mmol/L Normal 98-107 [facility] Comment on above: Performed By: #### E LEC #### [facility] [address] [address] [address] Alejandrina Feng CO2 [Moles/Vol] 27.5 mmol/L Normal 21.0-32.0 [facility] Comment on above: Performed By: #### E LEC #### [facility] [address] [address] [address] Alejandrina Feng Potassium [Moles/Vol] 3.5 mmol/L Normal 3.5-5.1 [facility] Comment on above: Performed By: #### E LEC #### [facility] [address] [address] [address] Aljeandrina Feng Sodium [Moles/Vol] 134 mmol/L Critically low 136-145 [facility] Comment on above: Performed By: #### E LEC #### [facility] [address] [address] [address] Alejandrina Feng MG MAMM SCREEN 3D TUSHAR CADon 07-06-2022 MG MAMM SCREEN 3D TUSHAR CAD Patient: ZARIA CORONA Exam Date: 07/06/2022 : 1955 Gender:F Ordering : DR SEGUN KINGSLEY D.O. Admission #: [id number] Family : Order #: [id number] CLICK HERE TO VIEW EXAM RADIOLOGY REPORT [...] Treatments None Family Cancers None LOCATION: [facility] BREAST COMPOSITION: Heterogeneously dense,which may obscure small [...] MD on 07/06/2022 at 10:00 Normal [facility] CBC AUTO DIFFon 06-20-2022 BASO # 0.1 103/ul Normal 0.0-0.1 [facility] Comment on above: Performed By: #### C BC #### [facility] [address] [address] [address] Alejandrina Feng Basophils/100 WBC (Bld) 0.4 % Normal 0.2-2.0 [facility] Comment on above: Performed By: #### C BC #### [facility] [address] [address] [address] Alejandrina Feng EO # 0.1 103/ul Normal 0.0-0.7 [facility] Comment on above: Performed By: #### C BC #### [facility] [address] [place] [address] Dr. Alejandrina Feng Eosinophils/100 WBC (Bld) 0.6 % Critically low 0.9-7.0 [facility] Comment on above: Performed By: #### C BC #### [facility] [address] [place] [address] Dr. Alejandrina Feng Erythrocyte distribution width (RBC) [Ratio] 14.6 % Normal 11.0-15.0 [facility] Comment on above: Performed By: #### C BC #### [facility] [address] [place] [address] Dr. Alejandrina Feng Hematocrit (Bld) [Volume fraction] 43.6 % Normal 36.0-48.0 [facility] Comment on above: Performed By: #### C BC #### [facility] [address] [place] [address] Dr. Alejandrina Feng Hemoglobin (Bld) [Mass/Vol] 14.1 g/dL Normal 12.0-16.0 [facility] Comment on above: Performed By: #### C BC #### [facility] [address] [place] [address] Dr. Alejandrina Feng IG # 0.07 10e3/ul Critically high 0.00-0.03 [facility] Comment on above: Performed By: #### C BC #### [facility] [address] [place] [address] Dr. Alejandrina Feng IG % 0.6 % Critically high 0.0-0.5 [facility] Comment on above: Performed By: #### C BC #### [facility] [address] [place] [address] Dr. Alejandrina Feng LYMPH # 1.6 103/ul Normal 1.2-3.8 [facility] Comment on above: Performed By: #### C BC #### [facility] [address] [place] [address] Dr. Alejandrina Feng Lymphocytes/100 WBC (Bld) 12.4 % Critically low 20.5-60.0 [facility] Comment on above: Performed By: #### C BC #### [facility] [address] [place] [address] Dr. Alejandrina Feng MANUAL DIFF REQ NO Normal [facility] Comment on above: Performed By: #### C BC #### [facility] [address] [place] [address] Dr. Alejandrina Feng MCH (RBC) [Entitic mass] 27.9 pg Normal 26.7-34.0 [facility] Comment on above: Performed By: #### C BC #### [facility] [address] [place] [address] Dr. Alejandrina Feng MCHC (RBC) [Mass/Vol] 32.3 g/dL Normal 29.9-35.2 [facility] Comment on above: Performed By: #### C BC #### [facility] [address] [place] [address] Dr. Alejandrina Feng MCV (RBC) [Entitic vol] 86.3 fL Normal 81.0-99.0 [facility] Comment on above: Performed By: #### C BC #### [facility] [address] [place] [address] Dr. Alejandrina Feng MONO # 0.9 103/ul Critically high 0.3-0.8 [facility] Comment on above: Performed By: #### C BC #### [facility] [address] [place] [address] Dr. Alejandrina Feng Monocytes/100 WBC (Bld) 7.2 % Normal 1.7-12.0 [facility] Comment on above: Performed By: #### C BC #### [facility] [address] [place] [address] Dr. Alejandrina Feng NEUT # 10.0 103/ul Critically high 1.4-6.5 [facility] Comment on above: Performed By: #### C BC #### [facility] [address] [place] [address] Dr. Alejandrina Feng Neutrophils/100 WBC (Bld) 78.8 % Critically high 43.0-75.0 [facility] Comment on above: Performed By: #### C BC #### [facility] [address] [place] [address] Dr. Alejandrina Feng Platelet mean volume (Bld) [Entitic vol] 8.8 fL Critically low 9.5-13.5 [facility] Comment on above: Performed By: #### C BC #### [facility] [address] [place] [address] Dr. Alejandrina Feng PLT 404 103/ul Normal 150-450 [facility] Comment on above: Performed By: #### C BC #### [facility] [address] [place] [address] Dr. Alejandrina Feng RBC 5.05 106/ul Normal 4.20-5.40 [facility] Comment on above: Performed By: #### C BC #### [facility] [address] [place] [address] Dr. Alejandrina Feng WBC 12.7 103/ul Critically high 4.0-11.0 [facility] Comment on above: Performed By: #### C BC #### [facility] [address] [place] [address] Dr. Alejandrina Feng PROF 14(COMP METB)on 022 Albumin [Mass/Vol] 3.6 g/dL Normal 3.4-5.0 [facility] Comment on above: Performed By: #### C MP, TSH #### [facility] [address] [place] [address] Dr. Alejandrina Feng Albumin/Globulin [Mass ratio] 0.8 {ratio} Normal [facility] Comment on above: Performed By: #### C MP, TSH #### [facility] [address] [place] [address] Dr. Alejandrina Feng ALP [Catalytic activity/Vol] 182 U/L Critically high 46-116 [facility] Comment on above: Performed By: #### C MP, TSH #### [facility] [address] [place] [address] Dr. Alejandrina Feng ALT [Catalytic activity/Vol] 29 U/L Normal 14-59 [facility] Comment on above: Performed By: #### C MP, TSH #### [facility] [address] [address] [address] Alejandrina Feng Anion gap [Moles/Vol] 13.4 mmol/L Normal [facility] Comment on above: Performed By: #### C MP, TSH #### [facility] [address] [address] [address] Alejandrina Feng AST [Catalytic activity/Vol] 22 U/L Normal 15-37 [facility] Comment on above: Performed By: #### C MP, TSH #### [facility] [address] [address] [address] Alejandrina Feng Bilirubin [Mass/Vol] 0.5 mg/dL Normal 0.2-1.0 [facility] Comment on above: Performed By: #### C MP, TSH #### [facility] [address] [address] [address] Alejandrina Feng Calcium [Mass/Vol] 9.3 mg/dL Normal 8.5-10.1 [facility] Comment on above: Performed By: #### C MP, TSH #### [facility] [address] [address] [address] Alejandrina Feng Chloride [Moles/Vol] 102 mmol/L Normal 98-107 [facility] Comment on above: Performed By: #### C MP, TSH #### [facility] [address] [address] [address] Alejandrina Feng CO2 [Moles/Vol] 26.2 mmol/L Normal 21.0-32.0 [facility] Comment on above: Performed By: #### C MP, TSH #### [facility] [address] [address] [address] Alejandrina Feng Creatinine [Mass/Vol] 0.94 mg/dL Normal 0.55-1.02 [facility] Comment on above: Performed By: #### C MP, TSH #### [facility] [address] [address] [address] Alejandrina Feng EGFR-AF PERUVIAN >60 Normal >=60 [facility] Comment on above: Performed By: #### C MP, TSH #### [facility] [address] [address] [address] Alejandrina Feng EGFR-NON AF PERUVIAN 59 mL/min/1.73m2 Critically low >=60 [facility] Comment on above: Performed By: #### C MP, TSH #### [facility] [address] [address] [address] Alejandrina Feng Globulin (S) [Mass/Vol] 4.3 g/dL Normal [facility] Comment on above: Performed By: #### C MP, TSH #### [facility] [address] [address] [address] Alejandrina Feng Glucose [Mass/Vol] 101 mg/dL Normal 74-106 [facility] Comment on above: Performed By: #### C MP, TSH #### [facility] [address] [address] [address] Alejandrina Feng Potassium [Moles/Vol] 4.6 mmol/L Normal 3.5-5.1 [facility] Comment on above: Performed By: #### C MP, TSH #### [facility] [address] [address] [address] Alejandrina Feng Protein [Mass/Vol] 7.9 g/dL Normal 6.4-8.2 [facility] Comment on above: Performed By: #### C MP, TSH #### [facility] [address] [address] [address] Alejandrina Feng Sodium [Moles/Vol] 137 mmol/L Normal 136-145 [facility] Comment on above: Performed By: #### C MP, TSH #### [facility] [address] [address] [address] Alejandrina Feng Urea nitrogen [Mass/Vol] 19.0 mg/dL Critically high 7.0-18.0 [facility] Comment on above: Performed By: #### C MP, TSH #### [facility] [address] [address] [address] Alejandrina Feng Urea nitrogen/Creatinine [Mass ratio] 20.2 mg/mg Normal [facility] Comment on above: Performed By: #### C MP, TSH #### [facility] [address] [place] [address] Dr. Alejandrina Feng TSHon 06-20-2022 TSH 0.854 uIU/mL Normal 0.358-3.740 [facility] Comment on above: Performed By: #### C MP, TSH #### [facility] [address] [place] [address] Dr. Alejandrina Feng Covid-19 PCR ([facility])on 02-23 SARS-CoV-2 (COVID-19) RNA JACKSON+probe Ql (Unsp spec) Not detected Normal NOT DETECTED [facility] Comment on above: Result Comment: When diagnostic [...] for this test is supported by the [facility] Manager of Health and Human Service's declaration [...] used). Performed By: #### C BC #### [facility] [address] [place] [address] Dr. Alejandrina Feng ELECTROLYTESon 03-09-2022 Anion gap [Moles/Vol] 14.8 mmol/L Normal [facility] Comment on above: Performed By: #### E LEC #### [facility] [address] [place] [address] Dr. Alejandrina Feng Chloride [Moles/Vol] 103 mmol/L Normal 98-107 [facility] Comment on above: Performed By: #### E LEC #### [facility] [address] [place] [address] Dr. Alejandrina Feng CO2 [Moles/Vol] 25.2 mmol/L Normal 21.0-32.0 [facility] Comment on above: Performed By: #### E LEC #### [facility] [address] [address] [address] Alejandrina Feng Potassium [Moles/Vol] 4.0 mmol/L Normal 3.5-5.1 [facility] Comment on above: Performed By: #### E LEC #### [facility] [address] [address] [address] Alejandrina Feng Sodium [Moles/Vol] 139 mmol/L Normal 136-145 [facility] Comment on above: Performed By: #### E LEC #### [facility] [address] [place] [address] Dr. Alejandrina Feng Covid-19 PCR (CVDTB)on SARS-CoV-2 (COVID-19) RNA JACKSON+probe Ql (Unsp spec) Not detected Normal NOT DETECTED [facility] Comment on above: Result Comment: This test is not yet approved or cleared by the [place] FDA. When there are no FDA-approved or cleared tests available, and other criteria are met, FDA can make tests available under an emergency access mechanism called an Emergency Use Authorization (EUA). The EUA for this test is supported by the [place] of Health and Human Service's (HHS's) declaration [...] SARS-CoV-2. Performed By: #### C VDTBH #### [facility] [address] [address] [address] Alejandrina Feng BNPon 02-22-2022 Natriuretic peptide B (Bld) [Mass/Vol] 60.0 pg/mL Normal <=900.0 [facility] Comment on above: Performed By: #### P THINT #### [facility] [address] [place] [address] Dr. Alejandrina Feng CBC AUTO DIFFon 02-22-2022 BASO # 0.1 103/ul Normal 0.0-0.1 [facility] Comment on above: Performed By: #### C BC #### [facility] [address] [place] [address] Dr. Alejandrina Feng Basophils/100 WBC (Bld) 0.4 % Normal 0.2-2.0 [facility] Comment on above: Performed By: #### C BC #### [facility] [address] [place] [address] Dr. Alejandrina Feng EO # 0.2 103/ul Normal 0.0-0.7 [facility] Comment on above: Performed By: #### C BC #### [facility] [address] [place] [address] Dr. Alejandrina Feng Eosinophils/100 WBC (Bld) 1.4 % Normal 0.9-7.0 [facility] Comment on above: Performed By: #### C BC #### [facility] [address] [place] [address] Dr. Alejandrina Feng Erythrocyte distribution width (RBC) [Ratio] 13.3 % Normal 11.0-15.0 [facility] Comment on above: Performed By: #### C BC #### [facility] [address] [place] [address] Dr. Alejandrina Feng Hematocrit (Bld) [Volume fraction] 45.1 % Normal 36.0-48.0 [facility] Comment on above: Performed By: #### C BC #### [facility] [address] [place] [address] Dr. Alejandrina Feng Hemoglobin (Bld) [Mass/Vol] 14.4 g/dL Normal 12.0-16.0 [facility] Comment on above: Performed By: #### C BC #### [facility] [address] [place] [address] Dr. Alejandrina Feng IG # 0.05 10e3/ul Critically high 0.00-0.03 [facility] Comment on above: Performed By: #### C BC #### [facility] [address] [place] [address] Dr. Alejandrina Feng IG % 0.4 % Normal 0.0-0.5 [facility] Comment on above: Performed By: #### C BC #### [facility] [address] [place] [address] Dr. Alejandrina Feng LYMPH # 1.6 103/ul Normal 1.2-3.8 [facility] Comment on above: Performed By: #### C BC #### [facility] [address] [place] [address] Dr. Alejandrina Feng Lymphocytes/100 WBC (Bld) 11.2 % Critically low 20.5-60.0 [facility] Comment on above: Performed By: #### C BC #### [facility] [address] [place] [address] Dr. Alejandrina Feng MANUAL DIFF REQ NO Normal [facility] Comment on above: Performed By: #### C BC #### [facility] [address] [place] [address] Dr. Alejandrina Feng MCH (RBC) [Entitic mass] 28.0 pg Normal 26.7-34.0 [facility] Comment on above: Performed By: #### C BC #### [facility] [address] [place] [address] Dr. Alejandrina Feng MCHC (RBC) [Mass/Vol] 31.9 g/dL Normal 29.9-35.2 [facility] Comment on above: Performed By: #### C BC #### [facility] [address] [place] [address] Dr. Alejandrina Feng MCV (RBC) [Entitic vol] 87.6 fL Normal 81.0-99.0 [facility] Comment on above: Performed By: #### C BC #### [facility] [address] [place] [address] Dr. Alejandrina Feng MONO # 0.6 103/ul Normal 0.3-0.8 [facility] Comment on above: Performed By: #### C BC #### [facility] [address] [place] [address] Dr. Alejandrina Feng Monocytes/100 WBC (Bld) 4.5 % Normal 1.7-12.0 [facility] Comment on above: Performed By: #### C BC #### [facility] [address] [place] [address] Dr. Alejandrina Feng NEUT # 11.4 103/ul Critically high 1.4-6.5 [facility] Comment on above: Performed By: #### C BC #### [facility] [address] [place] [address] Dr. Alejandrina Feng Neutrophils/100 WBC (Bld) 82.1 % Critically high 43.0-75.0 [facility] Comment on above: Performed By: #### C BC #### [facility] [address] [place] [address] Dr. Alejandrina Feng Platelet mean volume (Bld) [Entitic vol] 9.1 fL Critically low 9.5-13.5 [facility] Comment on above: Performed By: #### C BC #### [facility] [address] [place] [address] Dr. Alejandrina Feng PLT 363 103/ul Normal 150-450 [facility] Comment on above: Performed By: #### C BC #### [facility] [address] [place] [address] Dr. Alejandrina Feng RBC 5.15 106/ul Normal 4.20-5.40 [facility] Comment on above: Performed By: #### C BC #### [facility] [address] [place] [address] Dr. Alejandrina Feng WBC 13.9 103/ul Critically high 4.0-11.0 [facility] Comment on above: Performed By: #### C BC #### [facility] [address] [place] [address] Dr. Alejandrina Feng PROF 14(COMP METB)on 022 Albumin [Mass/Vol] 4.0 g/dL Normal 3.4-5.0 [facility] Comment on above: Performed By: #### P THINT #### [facility] [address] [place] [address] Dr. Alejandrina Feng Albumin/Globulin [Mass ratio] 0.8 {ratio} Normal [facility] Comment on above: Performed By: #### P THINT #### [facility] [address] [address] [address] Alejandrina Feng ALP [Catalytic activity/Vol] 200 U/L Critically high 46-116 [facility] Comment on above: Performed By: #### P THINT #### [facility] [address] [place] [address] Dr. Alejandrina Feng ALT [Catalytic activity/Vol] 29 U/L Normal 14-59 [facility] Comment on above: Performed By: #### P THINT #### [facility] [address] [place] [address] Dr. Alejandrina Feng Anion gap [Moles/Vol] 12.2 mmol/L Normal [facility] Comment on above: Performed By: #### P THINT #### [facility] [address] [place] [address] Dr. Alejandrina Feng AST [Catalytic activity/Vol] 25 U/L Normal 15-37 [facility] Comment on above: Performed By: #### P THINT #### [facility] [address] [place] [address] Dr. Alejandrina Feng Bilirubin [Mass/Vol] 0.4 mg/dL Normal 0.2-1.0 [facility] Comment on above: Performed By: #### P THINT #### [facility] [address] [address] [address] Alejandrina Feng Calcium [Mass/Vol] 9.5 mg/dL Normal 8.5-10.1 [facility] Comment on above: Performed By: #### P THINT #### [facility] [address] [place] [address] Dr. Alejandrina Feng Chloride [Moles/Vol] 101 mmol/L Normal 98-107 [facility] Comment on above: Performed By: #### P THINT #### [facility] [address] [address] [address] Alejandrina Feng CO2 [Moles/Vol] 25.8 mmol/L Normal 21.0-32.0 [facility] Comment on above: Performed By: #### P THINT #### [facility] [address] [address] [address] Alejandrina Feng Creatinine [Mass/Vol] 0.69 mg/dL Normal 0.55-1.02 [facility] Comment on above: Performed By: #### P THINT #### [facility] [address] [address] [address] Alejandrina Feng EGFR-AF PERUVIAN >60 Normal >=60 [facility] Comment on above: Performed By: #### P THINT #### [facility] [address] [address] [address] Alejandrina Feng EGFR-NON AF PERUVIAN >60 Normal >=60 [facility] Comment on above: Performed By: #### P THINT #### [facility] [address] [address] [address] Alejandrina Feng Globulin (S) [Mass/Vol] 4.8 g/dL Normal [facility] Comment on above: Performed By: #### P THINT #### [facility] [address] [address] [address] Alejandrina Feng Glucose [Mass/Vol] 96 mg/dL Normal 74-106 [facility] Comment on above: Performed By: #### P THINT #### [facility] [address] [address] [address] Alejandrina Feng Potassium [Moles/Vol] 4.0 mmol/L Normal 3.5-5.1 [facility] Comment on above: Performed By: #### P THINT #### [facility] [address] [address] [address] Alejandrina eFng Protein [Mass/Vol] 8.8 g/dL Critically high 6.4-8.2 [facility] Comment on above: Performed By: #### P THINT #### [facility] [address] [address] [address] Alejandrina Feng Sodium [Moles/Vol] 135 mmol/L Critically low 136-145 [facility] Comment on above: Performed By: #### P THINT #### [facility] [address] [address] [address] Alejandirna Feng Urea nitrogen [Mass/Vol] 18.0 mg/dL Normal 7.0-18.0 [facility] Comment on above: Performed By: #### P THINT #### [facility] [address] [address] [address] Alejandrina Feng Urea nitrogen/Creatinine [Mass ratio] 26.1 mg/mg Normal [facility] Comment on above: Performed By: #### P THINT #### [facility] [address] [place] [address] Dr. Alejandrina Feng TROPONIN, HIGH SENSITIVITYon 02-22-2022 HSTROP 7.4 pg/mL Normal 4.0-51.3 [facility] Comment on above: Result Comment: CUT- OFF POINTS HAVE BEEN ESTABLISHED BASED ON THE FOURTH UNIVERSAL DEFINITIONS OF MYOCARDIAL INFARCTION. THE UPPER REFERENCE LIMIT (URL) OF TROPONIN, DEFINED THE 99TH PERCENTILE OF cTnI DISTRIBUTION IN A REFERENCE POPULATION, HAS BEEN CONFIRMED THE DECISION THRESHOLD FOR NC DIAGNOSIS. Performed By: #### H STROPN #### [facility] [address] [place] [address] Dr. Alejandrina Feng HSTROP 6.4 pg/mL Normal 4.0-51.3 [facility] Comment on above: Result Comment: CUT- OFF POINTS HAVE BEEN ESTABLISHED BASED ON THE FOURTH UNIVERSAL DEFINITIONS OF MYOCARDIAL INFARCTION. THE UPPER REFERENCE LIMIT (URL) OF TROPONIN, DEFINED THE 99TH PERCENTILE OF cTnI DISTRIBUTION IN A REFERENCE POPULATION, HAS BEEN CONFIRMED THE DECISION THRESHOLD FOR NC DIAGNOSIS. Performed By: #### P THINT #### [facility] [address] [place] [address] Dr. Alejandrina Feng XR CHEST 1 Von [...] by: EVERETT ERNANDEZ Date: 2022-02-22 13:20 Normal [facility] OSMOLALITYon 02-02-2022 Osmolality [Osmolality] 284 mosm/kg Normal 280-301 [facility] Comment on above: Performed By: #### P THINT #### [facility] [address] [place] [address] Dr. Alejandrina Feng OSMOLALITY URINEon 2 Osmolality, Urine 629 mOsmol/kg Normal [facility] Comment on above: Result Comment: 24 h r : 300 - 900 Random: 50 - 1400 After 12hr fluid restriction: >850 Performed By: #### O SMOU #### [facility] [address] [place] [address] Dr. Alejandrina Feng PTH INTACTon 02-01-2022 PTH, Intact 42 pg/mL Normal 15-65 [facility] Comment on above: Performed By: #### P THINT #### [facility] [address] [place] [address] Dr. Alejandrina Feng PROF CHEM 8 (BAS METB)on Anion gap [Moles/Vol] 12.7 mmol/L Normal [facility] Comment on above: Performed By: #### P THINT #### [facility] [address] [place] [address] Dr. Alejandrina Feng Calcium [Mass/Vol] 8.7 mg/dL Normal 8.5-10.1 [facility] Comment on above: Performed By: #### P THINT #### [facility] [address] [place] [address] Dr. Alejandrina Feng Chloride [Moles/Vol] 100 mmol/L Normal 98-107 [facility] Comment on above: Performed By: #### P THINT #### [facility] [address] [place] [address] Dr. Alejandrina Feng CO2 [Moles/Vol] 27.7 mmol/L Normal 21.0-32.0 [facility] Comment on above: Performed By: #### P THINT #### [facility] [address] [address] [address] Alejandrina Feng Creatinine [Mass/Vol] 0.65 mg/dL Normal 0.55-1.02 [facility] Comment on above: Performed By: #### P THINT #### [facility] [address] [address] [address] Alejandrina Feng EGFR-AF PERUVIAN >60 Normal >=60 [facility] Comment on above: Performed By: #### P THINT #### [facility] [address] [address] [address] Alejandrina Feng EGFR-NON AF PERUVIAN >60 Normal >=60 [facility] Comment on above: Performed By: #### P THINT #### [facility] [address] [address] [address] Alejandrina Feng Glucose [Mass/Vol] 103 mg/dL Normal 74-106 [facility] Comment on above: Performed By: #### P THINT #### [facility] [address] [place] [address] Dr. Alejandrina Feng Potassium [Moles/Vol] 3.4 mmol/L Critically low 3.5-5.1 [facility] Comment on above: Performed By: #### P THINT #### [facility] [address] [address] [address] Alejandrina Feng Sodium [Moles/Vol] 137 mmol/L Normal 136-145 [facility] Comment on above: Performed By: #### P THINT #### [facility] [address] [place] [address] Dr. Alejandrina Feng Urea nitrogen [Mass/Vol] 15.0 mg/dL Normal 7.0-18.0 [facility] Comment on above: Performed By: #### P THINT #### [facility] [address] [address] [address] Alejandrina Feng Urea nitrogen/Creatinine [Mass ratio] 23.1 mg/mg Normal [facility] Comment on above: Performed By: #### P THINT #### [facility] [address] [place] [address] Dr. Alejandrina Feng SODIUM RANDOM URINEon 2021 Sodium (U) [Moles/Vol] 74 mmol/L Normal 30-90 [facility] Comment on above: Performed By: #### N AU #### [facility] [address] [place] [address] Dr. Alejandrina Feng TSHon 01-31-2022 TSH 0.791 uIU/mL Normal 0.358-3.740 [facility] Comment on above: Performed By: #### P THINT #### [facility] [address] [place] [address] Dr. Alejandrina Feng TSH RANGE SEE BELOW Normal [facility] Comment on above: Result Comment: <0.3 4 UIU/ml HYPERTHYROID 0.34-5.60 UIU/ml EUTHYROID >5.60 UIU/ml HYPOTHYROID Performed By: #### P THINT #### [facility] [address] [place] [address] Dr. Alejandrina Feng Vital Signs Date Time Vital Sign Value Performing Clinician Facility 12-27-2023 09:020400 Body height 162.56 cm [facility] 12-27-2023 09:02-0400 Body mass index (BMI) [Ratio] 26.2 kg/m2 [facility] 12-27-2023 09:02-0400 Body weight 69.11 kg [facility] 12-27-2023 09:02-0400 Diastolic blood pressure 84 mm[Hg] [facility] 12-27-2023 09:02-0400 Heart rate 76 /min [facility] 12-27-2023 09:02-0400 Respiratory rate 12 /min [facility] 12-27-2023 09:02-0400 Systolic blood pressure 127 mm[Hg] [facility] 12-19-2023 08:57-0400 Body height 162.56 cm [facility] 12-19-2023 08:57-0400 Body mass index (BMI) [Ratio] 25.9 kg/m2 [facility] 12-19-2023 08:57-0400 Body weight 68.54 kg [facility] 12-19-2023 08:57-0400 Diastolic blood pressure 85 mm[Hg] [facility] 12-19-2023 08:57-0400 Heart rate 98 /min [facility] 12-19-2023 08:57-0400 Respiratory rate 12 /min [facility] 12-19-2023 08:57-0400 Systolic blood pressure 124 mm[Hg] [facility] 10-09-2023 10:00-0500 Body height 162.56 cm Segun Ball Other [facility] 10-09-2023 10:00-0500 Body mass index (BMI) [Ratio] 25.81 kg/m2 Segun Ball Other [facility] Other 10-09-2023 10:00-0500 Body weight 68.22 kg Segun Ball Other [facility] 10-09-2023 10:00-0500 Diastolic blood pressure 83 mm[Hg] Segun Ball Other [facility] 10-09-2023 10:00-0500 Respiratory rate 12 /min Segun Ball Other [facility] Other 10-09-2023 10:00-0500 Systolic blood pressure 126 mm[Hg] Segun Ball Other [facility] 09-19-2023 13:45-0500 Body height 162.56 cm Segun Ball Other [facility] Other 09-19-2023 13:45-0500 Body mass index (BMI) [Ratio] 26.02 kg/m2 Segun Ball Other [facility] Other 09-19-2023 13:45-0500 Body weight 68.77 kg Segun Ball Other [facility] Other 09-19-2023 13:45-0500 Diastolic blood pressure 79 mm[Hg] Segun Ball Other [facility] Other 09-19-2023 13:45-0500 Respiratory rate 12 /min Segun Ball Other [facility] Other 09-19-2023 13:45-0500 Systolic blood pressure 123 mm[Hg] Segun Ball Other [facility] Other 04-10-2023 11:00-0400 Body height 162.56 cm Segun Ball Other [facility] Other 04-10-2023 11:00-0400 Body mass index (BMI) [Ratio] 26.29 kg/m2 Segun Ball Other [facility] Other 04-10-2023 11:00-0400 Body weight 69.49 kg Segun Ball Other [facility] Other 04-10-2023 11:00-0400 Diastolic blood pressure 74 mm[Hg] Segun Ball Other [facility] Other 04-10-2023 11:00-0400 Respiratory rate 12 /min Segun Ball Other [facility] Other 04-10-2023 11:00-0400 Systolic blood pressure 108 mm[Hg] Segun Ball Other [facility] Other 01-25-2023 12:30-0400 Body height 162.56 cm Segun Ball Other [facility] Other 01-25-2023 12:30-0400 Body mass index (BMI) [Ratio] 26.05 kg/m2 Segun Ball Other [facility] Other 01-25-2023 12:30-0400 Body weight 68.86 kg Segun Ball Other [facility] Other 01-25-2023 12:30-0400 Diastolic blood pressure 81 mm[Hg] Segun Ball Other [facility] Other 01-25-2023 12:30-0400 Respiratory rate 12 /min Sgeun Ball Other [facility] Other 01-25-2023 12:30-0400 Systolic blood pressure 119 mm[Hg] Segun Ball Other [facility] Other 12-06-2022 11:00-0400 Body height 162.56 cm Segun Ball Other [facility] Other 12-06-2022 11:00-0400 Body mass index (BMI) [Ratio] 25.98 kg/m2 Segun Ball Other [facility] Other 12-06-2022 11:00-0400 Body weight 68.68 kg Segun Ball Other [facility] Other 12-06-2022 11:00-0400 Diastolic blood pressure 74 mm[Hg] Segun Ball Other [facility] Other 12-06-2022 11:00-0400 Respiratory rate 16 /min Segun Ball Other [facility] Other 12-06-2022 11:00-0400 Systolic blood pressure 117 mm[Hg] Segun Ball Other [facility] Other 07-13-2022 13:16-0400 Blood Pressure Location NOE SHANE [facility] 07-13-2022 13:16-0400 Diastolic blood pressure 88 mm[Hg] NOE SHANE [facility] 07-13-2022 13:16-0400 Heart rate 79 /min NOE SHANE [facility] 07-13-2022 13:16-0400 Respiratory rate 16 /min NOE SHANE [facility] 07-13-2022 13:16-0400 Systolic blood pressure 138 mm[Hg] NOE SH[facility] Encounters Encounter Date Encounter Type Care Provider Facility Start: 02-26-2024 ambulatory Enrique Boss ty:[facility] [place] Start: 12-27-2023 End: 12-27-2023 ambulatory [facility] Work Phone: Start: 12-27-2023 End: 12-27-2023 Patient encounter procedure [facility] Work Phone: Start: 12-19-2023 End: 12-19-2023 ambulatory [facility] Work Phone: Start: 12-19-2023 End: 12-19-2023 Patient encounter procedure [facility] Work Phone: Start: 11-29-2023 Non-patient / Non-visit [facility] Work Phone: Start: 10-10-2023 End: 10-10-2023 ambulatory Segun Kingsley Other [place] [facility] Other Start: 10-10-2023 Telephone encounter Segun Kingsley [place] [facility] Start: 10-09-2023 End: 10-09-2023 ambulatory Segun Ball Other [facility] Other Start: 10-09-2023 Office outpatient vi sit 25 minutes Segun Ball [facility] Start: 10-09-2023 End: 10-09-2023 Patient encounter procedure [facility] Work Phone: Start: 09-22-2023 End: 09-22-2023 ambulatory Segun Ball Other [facility] Other Start: 09-22-2023 Telephone encounter Segun Ball [facility] Start: 09-19-2023 End: 09-19-2023 ambulatory Segun Ball Other [facility] Other Start: 09-19-2023 Office outpatient vi sit 15 minutes Segun Ball [facility] Start: 09-13-2023 Telephone encounter Segun Ball [facility] Start: 09-13-2023 End: 09-13-2023 [facility] [place] [facility] Other Start: 07-19-2023 End: 07-19-2023 ambulatory Segun Ball Other [facility] Other Start: 07-19-2023 Office outpatient vi sit 15 minutes Segun Ball [facility] Start: 06-20-2023 End: 06-20-2023 ambulatory Segun Ball Other [facility] Other Start: 06-20-2023 Telephone encounter Segun Ball [facility] Start: 04-13-2023 End: 04-13-2023 ambulatory Segun Ball Other [facility] Other Start: 04-13-2023 Telephone encounter Segun Ball [facility] Start: 04-10-2023 End: 04-10-2023 ambulatory Segun Ball Other [facility] Other Start: 04-10-2023 Encounter for genera l adult medical examination without abnormal findings Segun Kingsley [facility] Start: 04-10-2023 Periodic preventive med est patient 65yrs& older Segun Kingsley [facility] Start: 02-13-2023 End: 02-14-2023 ambulatory Enrique VÁSQUEZ Facility: [facility] Start: 01-25-2023 End: 01-25-2023 ambulatory Segun Kingsley Other [facility] Other Start: 01-25-2023 Office outpatient vi sit 15 minutes Segun Kingsley [facility] Start: 01-20-2023 End: 01-21-[address] ENRIQUE VÁSQUEZ . Facility:[facility] Start: 12-06-2022 End: 12-06-2022 ambulatory Segun Kingsley Other [facility] Other Start: 12-06-2022 Office outpatient vi sit 25 minutes Segun Kingsley [facility] Start: 10-27-2022 End: 10-28-[address] ENRIQUE VÁSQUEZ . Facility:[facility] Start: 08-26-2022 End: 08-27-[address] ELOINA DUMONT Facility:[facility] Start: 07-13-2022 End: 07-14-2022 ambulatory Jackson Bach Facility:[facility] Start: 07-13-2022 End: 07-13-2022 Patient encounter procedure NOE SHANE [facility] Start: 07-06-2022 End: 07-07-[address] SEGUN KINGSLEY Facility:[facility] Start: 06-20-2022 End: 06-21-[address] SEGUN KINGSLEY Facility:[facility] Start: 04-01-2022 Adult health examination Segun Kingsley Other [facility] Other Start: 03-11-2022 End: 03-11-[address] [...] wave lithotripsy of calculus of kidney NOE SVITLANA Start: 05-20-2021 Extracorporeal shock wave lithotripsy of calculus of kidney NOE SVITLANA Start: 05-06-2021 Extracorporeal shock wave lithotripsy of calculus of kidney NOE SHANE Colonoscopy NOE SHANE End: 07-19-2021 Hyperlipidemia screening Segun Kingsley Other Hysterectomy NOE SHANE Screening for malign ant neoplasm of breast Segun Kingsley Other Plan of Treatment Date Care Activity Detail Author XR Foot - right GE 3 Views F [facility] Immunizations Immunization Date Immunization Notes Care Provider Fa cility 06-22-2022 influenza virus vaccine, split virus (incl. purified surface antigen) Segun Kingsley Other [facility] Other 06-22-2022 influenza virus vaccine, unspecified formulation [facility] 06-22-2022 influenza, high dose seasonal, preservative-free Segun Kingsley Other [facility] Other 04-01-2022 pneumococcal conjuga te vaccine, 13 valent NOE SHANE [facility] 09-01-2021 COVID-19 Vaccine Pfi zer - Documentation Purposes Only Segun Kingsley Other [facility] 09-01-2021 SARS-CoV-2 (COVID-19 ) Ad26 vaccine, recombinant NOE SVITLANA [facility] 07-19-2021 influenza virus vaccine, split virus (incl. purified surface antigen) Segun Kingsley Other [facility] Other 07-19-2021 influenza virus vaccine, unspecified formulation [facility] 05-26-2021 influenza virus vaccine, unspecified formulation NOE SVITLANA [facility] 01-05-2021 diphtheria, tetanus toxoids and acellular pertussis vaccine, unspecified formulation Segun Kingsley Other [facility] 01-05-2021 tetanus toxoid, redu agustin diphtheria toxoid, and acellular pertussis vaccine, adsorbed NOE SVITLANA [facility] 12-25-2020 COVID-19, mRNA, LNP- S, PF, 30 mcg/0.3 mL dose NOE SVITLANA [facility] Comment on above: Reason for Medicatio n: Prophylaxis 12-04-2020 COVID-19, mRNA, LNP- S, PF, 30 mcg/0.3 mL dose NOE SVITLANA [facility] Comment on above: Reason for Medicatio n: Prophylaxis 08-14-2020 pneumococcal polysaccharide vaccine, 23 valent Segun Kingsley Other [facility] 08-11-2020 influenza virus vaccine, split virus (incl. purified surface antigen) Segun Kingsley Other [facility] Other 08-11-2020 influenza virus vaccine, unspecified formulation [facility] 08-10-2020 influenza virus vaccine, unspecified formulation NOE SVITLANA [facility] 07-25-2018 influenza virus vaccine, split virus (incl. purified surface antigen) Segun Kingsley Other [facility] Other 07-25-2018 influenza virus vaccine, unspecified formulation NOE SHANE [facility] 10-12-2017 influenza virus vaccine, split virus (incl. purified surface antigen) Segun Kingsley Other [facility] Other 10-12-2017 influenza virus vaccine, unspecified formulation [facility] Payers Date Payer Category Payer Unknown [id number]. [id number] 1955 Unknown [id number] 2.16.84 0.1.194655.3.579.2.593 1955 Unknown [id number] 2.16.84 0.1.904387.3.579.2.593 1955 Unknown [id number] 2.16.84 0.1.443514.3.579.2.593 1954 Unknown [id number] 2.16.84 0.1.266666.3.579.2.593 1954 Unknown [id number] 2.16.84 0.1.389830.3.579.2.593 1954 Unknown [id number] 2.16.84 0.1.428194.3.579.2.593 1954 Unknown [id number] 2.16.84 0.1.330986.3.579.2.593 1955 Unknown [id number] 2.16.84 0.1.365823.3.579.2.593 1955 Unknown [id number] 2.16.84 0.1.814753.3.579.2.593 1954 Unknown [id number] 2.16.84 0.1.751317.3.579.2.593 1955 Unknown [id number] 2.16.84 0.1.244260.3.579.2.593 1955 Unknown [id number] 2.16.8 40.1.783577.3.579.2.727 1955 Unknown [id number] 2.16.8 40.1.351465.3.579.2.727 1955 Unknown [id number] 2.16.840 .1.210079.3.579.2.1259 Social History Date Type Detail Facility Start: 07-13-2022 End: 12-18-2023 Tobacco smoking status Never smoked tobacco (finding) [facility] Tobacco smoking status Never [facility] Sex Assigned At Female [facility] Start: 1955 Sex Assigned At Female F [facility] Functional Status Date Assessment Result Facility 07-13-2022 Functional Status N/A [facility] Clinical Notes 07-13-2022 to 10-10-2023 Note Date & Type Note Facility 10-10-2023 Evaluation note Encounter Date Diagnosis Assessment Notes Sep, COVID- 19 (ICD-1 0 - U07.1) [facility] Other 01-15-2024 Evaluation note* Encounter Date Diagnosis [...] interruption. 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 Referred to ENT w/ no further scans recommended. [facility] Other 10-25-2023 Evaluation note* Encounter Date Diagnosis [...] Amlodipine to 5mg qd while taking Paxlovid [facility] Other 07-17-2023 Evaluation note* Encounter Date Diagnosis [...] SBE and yearly mammogram - due in [facility] Other 05-03-2023 Evaluation note* Encounter Date Diagnosis [...] pneumonia Due for COVID booster and Shingrix [facility] Other 03-14-2023 Evaluation note* Encounter Date Diagnosis [...] or drinking prior to bedtime. Continue PPI [facility] Other 10-19-2022 Hospital Discharge instructions Patient Education 07/13/2022 13:30:11 Kidney Stones, Dkxe-bi-Bskc Kidney Stones Kidney stones are rock-like masses [...] Follow these instructions at home: Medicines Take tuni-krc-byristt and prescription medicines only as told by [...] 02/27/2009 Document Revised: 01/28/2020 Document Reviewed: 01/28/2020 [employer] Patient Education 2019 [employer]. Follow Up Care 10/18/2021 12:21:40 With:SVITLANA IBARRA, NOE Anderson, URL Address: [address] [place] [address]. [place] [address] [phone] When: Unknown [facility] 10-19-2022 Evaluation + Plan note Future Scheduled Tests Laboratory* Basic Metabolic Panel 07/13/[address] [facility] [employer] Other Evaluation note* Diagnosis Onset Date Resolution Status Plantar fasciitis of right foot noneactive Right foot pain noneactive [facility] Work Phone: Evaluation note* Diagnosis Onset Date Resolution Status Plantar fasciitis of right foot noneactive Right foot pain noneactive Essential (primary) hypertension acute Osteoporosis acute Avulsion fracture of metatarsal bone of right foot noneactive [facility] Work Phone: History general Narrative - Reported* Type Description [...] Surgical History COLONOSCOPY 2018 Surgical History GENEVA/BSO 2009 Hospitalization History SEE SURGICAL HX [facility] Other History general Narrative - Reported[employer] Other Hospital course Narrative No data available for this section [facility] [employer] progress note No data available for this section [facility] [employer] reason for referral (narrative)* Reason Referral for treatme nt of chronic low back pain Diagnosis 1 Acute bilateral low back pain without sciatica (M54.50) Diagnosis 2 Lumbar spondylosis ( M47.816) Referral Organization [facility] Becca rob Referring Provider First Name Segun Referring Provider Last Name Sancho Referring Provider Specialty Internal Me dicine Referred Organization [facility] Referred Address [address] [place], [place],[address] Referred Provider Specialty Pain Medicin e Referral [...] for injections. Clinical Notes Include XR results [facility] Other Summary Purpose Family History Relationship Condition Age at Onset Recorded Date/T david father Unknown Heart disease Unknown Not Specified Unknown Hypertension Unknown Malignant neoplasm Unknown Advance Directives Advance Directive Response Recorded Date/ Time Advance Directives No December 17, 2 024 3:34pm Chief Complaint and Reason for Visit Chief Complaint 6 Month Amb Documentation hurt right foot Reason for Visit Plantar fasciitis of right foot Right foot pain Chief Complaint 6 Month Amb Documentation hurt right foot Right Side of Foot Reason for Visit Plantar fasciitis of right foot Right foot pain Essential (primary) hypertension Osteoporosis Avulsion fracture of metatarsal bone of right foot Additional Source Comments Patient Care team informatio n (unrecognized section and content) Team Status: Active Member Role Status Dates Segun Kingsley , Primary Care Provider Active Team Status: Inactive Member Role Status Dates Segun Kingsley DO Attending Provider Active Sta rt: October 09, 2023 End: October 09, 2023 Team Status: Active Member Role Status Dates Segun Kingsley DO Primary Care Provider Active Start: November 29, 2023 RICH Che Attending Provider Active Start : November 29, 2023 Team Status: Inactive Member Role Status Dates Segun Kingsley DO Primary Care Provide r, Attending Provider Active Start: December 19, 2023 End: December 19, 2023 Team Status: Inactive Member Role Status Dates Segun Kingsley DO Primary Care Provide r, Attending Provider Active Start: December 27, 2023 End: December 27, 2023 REASON FOR VISIT (unrecogniz ed section and content) 3 month Follow upPossible Sp ider [id number] COVID +No Informationback painback painXR results6 monthCOVID + INFORMATION SOURCE (unrecogn ized section and content) DATE CREATED AUTHOR 01/27/2023 [facility] DATE CREATED AUTHOR AUTHOR'S ORGANIZ ATION 09/13/2023 [facility] DATE CREATED AUTHOR AUTHOR'S ORGANIZ ATION 09/14/2023 [facility] EPIC Goals (unrecognized section and content) Goals may be documented in a n alternate section FOR RECORDS PERTAINING TO PATIENTS WHO ARE [...] BE BASED ON THE PRIMARY CLINICAL RECORDS. [employer] [facility]. provides no warranty or guarantee of the accuracy or completeness of information in this document.
--- NOTE | 2024-02-08 13:41 | XR_ITS ---
The [address] [address] Patient Name: ELBA CORONA MRN: [id number] date: 1955 Sex: F Assigned Patient Location: LAB Current Patient Location: Accession/Order Number: [id number] Exam Date: 02/08/2024 13:42 Report Date: 02/09/2024 07:27 At the request of: THELMA VIDAL Procedure: XR abdomen 1V EXAMINATION: XR abdomen 1V HISTORY: Kidney Stone N20.0 COMPARISON: 08/21/2023 FINDINGS: KIDNEY/URETER - RIGHT: No visible renal or ureteral calcifications. KIDNEY/URETER - LEFT: No visible renal or ureteral calcifications. PELVIS: No visible ureteral calcifications. Any visible calcifications favor phleboliths. BOWEL: No abnormal dilation or deviation. BONES: No acute abnormality. Mild levocurvature OTHER: Negative. No abnormal gaseous collections. XR/XR abdomen 1V IMPRESSION: No definite urinary tract calculi Electronically authenticated by: EVERETT ERNANDEZ Date: 02/09/2024 07:27
[2024-02-08 14:12] LABS: Chloride 102 mmol/L (98-107); Sodium 138 mmol/L (136-145)
== END 2024-02-08 13:23 | disposition home or self-care (01) ==
LOC: LAB 13:24
PROVIDERS: PCP Internal Medicine; Visit Provider Urology
DX: N20.0 Calculus of kidney (principal); R82.994 Hypercalciuria; R82.991 Hypocitraturia
CPT/HCPCS: 36415; 74018; 80051

== ENCOUNTER 2024-05-01 07:39 | Outpatient (OUT) | payer OTHER, SELFPAY ==
--- OUTSIDE RECORDS SUMMARY | 2024-05-01 07:41 | XMS_ITS | CCD ---
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 Name Role Phone SEGUN KINGSLEY Primary Care Physician Segun Kingsley Unavailable VÁSQUEZ ., DR RENEE Attending Unavailable VÁSQUEZ ., DR RENEE Consulting Unavailable VÁSQUEZ ., DR RENEE Admitting Unavailable BALL, DR GALVEZ Primary Care Unavailable AWAIS, DR EVERETT Salazar Consulting Unavailable VÁSQUEZ ., [...] Consulting Unavailable WILFRIDO ., STEPHAN Consulting Unavailable TIMMIS, ELOINA Pdeerson Attending Unavailable BALL, SEGUN E Referring Unavailable Enrique VÁSQUEZ Attending Unavailable Kelsie Perez Attending Unavailable Kelsie Perez Attending Unavailable Kelsie Perez Admitting Unavailable Allergies Allergy Classification Reported Allergen(s) Allergy Type Date of Onset Reaction(s) Facility (2 sources) patient allergy list reviewed by nurse or physicia Propensity to adverse reactions 5 Comment:Done [email or web address] Other (1 source) No Known Medication Allergies; Translations: [No Known Medication Allergies] Propensity to adverse reactions (disorder) [facility] Repository Medications Current Medications Medication Drug Class(es) Dates Sig (Normalized) Sig (Original) acetaminophen 500 mg oral tablet (3 sources) Start: 05-05-2021 take 500 mg by mouth twice daily Tylenol 500 mg, Oral, BID Start Date: 05/05/21 Status: Ordered [id number] actuat albuterol 0.09 mg/actuat metered dose [...] Oct, Not-Taking amLODIPine 10 mg oral tablet (20 sources) Dihydropyridine Calcium Channel Emmanuel Start: 12-18-2023 End: 04-15-2024 take 10 mg by mouth once daily Amlodipine Active 10 MG PO Daily April 15, 2024 2:43pm Start: 05-05-2021 take 1 tablet by levon th once daily amLODIPine 5 mg Tab 5 mg = 1 tab(s), Oral, Daily Start Date: 05/05/21 Status: Ordered take 1 tablet by levon th once daily atorvastatin 40 mg oral tablet (20 sources) HMG-CoA Reductase Inhibitor Start: 04-15-2024 take 40 mg by mouth once daily Atorvastatin Active 40 MG PO Daily April 15, 2024 2:43pm Start: 11-29-2023 End: 04-15-2024 take 1 tablet by mouth once daily in the evening Atorvastatin Discontinued 0 .ROUTE .COMPLEX November 29, 2023 10:55pm April 15, 2024 2:47pm TAKE ONE TABLET BY MOUTH ONCE DAILY IN THE EVENING Start: 11-29-2023 take 1 tablet by levon th once daily in the evening Atorvastatin Active 0 .ROUTE .COMPLEX November 29, 2023 10:55pm TAKE ONE TABLET BY MOUTH ONCE DAILY IN THE EVENING Start: 05-05-2021 End: 11-29-2023 take 40 mg by mouth once daily in the evening Atorvastatin Discontinued 40 MG PO Every evening November 29, 2023 1:00am November 29, 2023 10:55pm azelastine hydrochloride 0.137 mg/actuat metered dose nasal spray (17 sources) Histamine-1 Receptor Antagonist Start: 12-18-2023 Azelastine Active 1 SPRAY INTRANASAL Twice daily December 18, 2023 12:00am take 1 puff(s) nasal route twice daily take 1 puff(s) nasal route twice daily Azelastine HCl 137 MCG/SPRAY 1 puff in each nostril Nasally Twice a day Active calcium carbonate 1500 mg oral tablet (3 sources) Start: 05-05-2021 take 1 tablet by mouth twice daily calcium (as carbonate) 600 mg oral tablet 600 mg = 1 tab(s), Oral, BID Start Date: 05/05/21 Status: Ordered FLUoxetine 40 mg oral capsule (20 sources) Serotonin Reuptake Inhibitor Start: 04-15-2024 take 40 mg by mouth once daily Fluoxetine Active 40 MG PO Daily April 15, 2024 2:44pm Start: 03-29-2024 End: 04-15-2024 take 1 capsule by mouth once daily Fluoxetine Discontinued 0 .ROUTE .COMPLEX March 29, 2024 8:44am April 15, 2024 2:47pm TAKE ONE CAPSULE BY MOUTH ONCE DAILY Start: 05-05-2021 End: 03-29-2024 take 40 mg by mouth once daily Fluoxetine Discontinued 40 MG PO Daily December 18, 2023 12:00am March 29, 2024 8:44am fluticasone propionate 0.05 mg/actuat metered dose nasal spray (12 sources) Corticosteroid Start: 10-26-2019 take 1 spray(s) nasa l route once daily Start: 10-26-2019 take 1 spray(s) nasa l route once daily Fluticasone Propionate 50 MCG/ACT 1 spray in each nostril Nasally Once a day for 21 days Oct, Not-Taking Start: 10-26-2019 hydroCHLOROthiazide 25 mg oral tablet (20 sources) Thiazide Diuretic Start: 04-15-2024 take 12.5 mg by mouth once daily Hydrochlorothiazide Active 12.5 MG PO Daily April 15, 2024 2:42pm Start: 06-08-2022 End: 04-15-2024 take 25 mg by mouth once daily Hydrochlorothiazide Discontinued 25 MG PO Daily December 18, 2023 12:00am April 15, 2024 2:47pm Lisinopril (12 sources) Angiotensin Converting Enzyme Inhibitor Lisinopril Not-T aking/PRN Lisinopril Not-T aking methylPREDNISolone 4 mg oral tablet (12 sources) Corticosteroid Start: 10-26-2019 Start: 10-26-2019 omeprazole 40 mg delayed release oral capsule (20 sources) Proton Pump Inhibitor Start: 10-18-2021 End: 04-15-2024 take 40 mg by mouth once daily at breakfast Omeprazole Active 40 MG PO Daily April 15, 2024 2:44pm ON AN EMPTY STOMACH, FOLLOWED IN 30 MINS BY BREAKFAST paxlovid (300/100) 20 x 150 mg & [...] packet daily Active Potassium Bicarb And Chloride (5 sources) Start: 12-18-2023 Potassium Bica rb And Chloride Active 1 PACKET PO Daily December 18, 2023 12:00am temazepam 15 mg oral capsule (20 sources) Benzodiazepine Start: 05-05-2021 End: 04-15-2024 take 15 mg by mouth once daily at bedtime Temazepam Active 15 MG PO Daily at bedtime April 15, 2024 2:46pm tiZANidine (12 sources) Central alpha-2 Adrenergic Agonist tiZANidine HCl N ot-Taking/PRN tiZANidine HCl N ot-Taking traMADol (12 sources) Opioid Agonist traMADol HCl Not -Taking/PRN traMADol HCl Not -Taking triamcinolone acetonide 0.25 mg/ml topical cream (16 sources) Corticosteroid Start: 12-18-2023 Triamcinolone Acetonide Active 1 APPLIC TOPICAL Twice daily December 18, 2023 12:00am Triamcinolone Ac etonide 0.025 % 1 application Externally twice daily as needed for 14 days Active Vitamin D3 (3 sources) Start: 05-05-2021 Vitamin D3 1,0 00 International_Unit, [...] potassium bicarbonate 25 meq effervescent oral tablet (3 sources) Start: 04-10-2023 take 1 tablet by mouth twice daily Klor-Con/EF 25 mEq oral tablet, effervescent 25 mEq = 1 tab(s), Oral, BID, # 60 tab(s), Refills(s) 11, Pharmacy: [facility]/pharmacy #[id number], 163, cm, 02/13/23 14:27:00 EDT, Height/Length Dosing, 70, kg, 02/13/23 14:27:00 EDT, Weight Dosing Start Date: 04/10/23 Status: Ordered Start: 10-18-2021 take 1 tablet by levon th twice daily Effer-K 25 mEq oral tablet, [...] Onset: 02-02-2022 Episodic Fracture of lower limb (3 sources) Fracture of unspecified metatarsal bone(s), right foot, initial encounter for closed fracture; Translations: [Closed fracture of metatarsal bone(s)] 12-27-2023 Episodic Genitourinary symptoms and ill-defined conditions (20 sources) Microscopic hematuria; Translations: [Dysuria] Onset: 09-09-2016 05-05-2021 Episodic Immunizations and screening for infectious disease (7 sources) Vaccination given; Translations: [Encounter for immunization] Episodic Inflammation; infection of eye (except that caused by tuberculosis or sexually transmitteddisease) (9 sources) Acute atopic conjunctivitis; Translations: [Acute atopic conjunctivitis, bilateral] Episodic Malaise and fatigue (20 sources) Fatigue; Translations: [Other fatigue] Onset: 01-27-2014 Episodic Miscellaneous mental health disorders (4 sources) Globus sensation; 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] 04-15-2024 Chronic Mood disorders (20 sources) Single episode of major depression in full remission; Translations: [Major depressive disorder, single episode, in full remission] Onset: 09-25-1959 Chronic Osteoarthritis (3 sources) Arthritis 05-05-2021 Chronic Osteoporosis (8 sources) Osteoporosis; Translations: [Age-related osteoporosis without current pathological fracture] 12-24-2023 Chronic Other circulatory disease (7 sources) Cardiovascular symptoms; Translations: [Other specified symptoms and signs involving the circulatory and respiratory systems] Episodic Other congenital anomalies (7 sources) Congenital spondylolysis of lumbosacral region; Translations: [Congenital spondylolysis, lumbosacral region] Onset: 08-22-2017 Chronic Other connective tissue disease (4 sources) Plantar fascial fibromatosis; Translations: [Plantar fascial fibromatosis] 12-19-2023 Episodic Other connective tissue disease (4 sources) Pain in right foot; Translations: [Pain in limb] 12-19-2023 Episodic Other diseases of kidney and ureters (3 sources) Hydronephrosis due to ureteral obstruction 05-05-2021 Episodic [...] diarrhea] Onset: 09-10-2018 Chronic Other gastrointestinal disorders (8 sources) Irritable bowel syndrome; Translations: [Irritable bowel syndrome] 02-20-2024 Chronic Other gastrointestinal disorders (1 source) Irritable bowel syndrome without diarrhea; Translations: [Irritable bowel syndrome] 02-20-2024 Chronic Other injuries and conditions due to [...] of genitourinary organs] Onset: 10-22-2009 Chronic Other screening for suspected conditions (not mental disorders or infectious disease) (20 sources) Encounter for screening mammogram for malignant neoplasm of breast; Translations: [Encounter for screening for diseases of the blood and blood-forming organs and certain disorders involving the immune mechanism] Onset: 03-31-2015 Resolved: 07-19-2021 Episodic Other upper respiratory disease (7 sources) Vasomotor rhinitis; Translations: [Vasomotor rhinitis] Chronic Other upper respiratory disease (7 sources) Seasonal allergic rhinitis; Translations: [Other seasonal allergic rhinitis] Onset: 01-30-2015 Chronic Other upper respiratory disease (12 sources) Allergic rhinitis due to pollen; Translations: [...] [Lumbago with sciatica, left side] Onset: 06-12-2013 02-20-2024 Episodic Superficial injury; contusion (1 source) Insect [...] [Contact with and (suspected) exposure to COVID-19] Unclassified (2 sources) Urine finding 02-13-2023 Past or Other Problems Problem Classification Problem [...] without mention of hemorrhage] Onset: 4 Episodic Headache; including migraine (7 sources) Headache; Translations: [Headache, unspecified] Onset: 5 Episodic Nausea and vomiting (7 sources) Nausea; Translations: [Nausea] Onset: 5 Episodic Nonspecific chest pain (18 sources) Chest pain, unspecified; Translations: [Chest pain] Onset: 6 Episodic Other aftercare (1 source) 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; Translations: [OTH COMMUNICATION ELECTRONIC TECHNICIAN CURRENT DRUG THERAPY] Onset: 2 Episodic Other [...] [Abnormal weight loss] Onset: 8 Episodic Other skin disorders (7 sources) Inflamed [...] Results Test Name Value Interpretation Reference Range Facility C Urineon 02-22-2024 Bacteria identified Cx Nom (U) Microbiology PROCEDURE: Urine Culture [R1] SOURCE: U Random BODY SITE: COLLECTED DATE/TIME: 02/20/2024 15:02 EDT RECEIVED DATE/TIME: 02/20/2024 18:03 EDT START DATE/TIME: 02/20/2024 18:03 EDT FREE TEXT SOURCE: DAYAN Perez APRN, Orzech CUSHION INSTALLER, RN CLINICIAN-C, Kelsie X Kelsie X FINAL REPORTS Final Report [] Verified Date/Time: 02/22/2024 10:48 EDT 4,000 cfu/ml Mixed skin contaminants Performing Locations R1: This test was performed at: [facility], [address] [place] [address], [id number] , [place], [facility] Comment on above: Performed By: #### 2 [id number] #### [facility] [address] [place] [id number] Screenson 02-21-2024 Screens [id number] FF [facility] Patient Educationon 02-20-20 24 Patient Education Nephrology Dietary Guidelines to Help Prevent Kidney Stones Kidney stones are deposits of minerals and salts that form inside your kidneys. Your risk of developing kidney stones may be greater depending on your diet, your lifestyle, the medicines you take, and whether you have certain medical conditions. Most people can lower their risks of developing kidney stones by following these dietary guidelines. Your dietitian may give you more specific [...] ? 8 oz (237 mL) of milk, ljebvyj-mdbtvizrizpc-hg iry milk, and calcium-fortifiedfruit juice. Calcium-fortified means that calcium has been [...] table and allow each person to add their own salt to taste. ? Use vegetable [...] or seafood. ? When you prepare animal proteins, cut pieces into small portion sizes. For [...] two kinds of vegetables at dinner. ? You may be told to limit foods that are high in a substance called oxalate. These include: ? Spinach (cooked), rhubarb, beets, sweet potatoes, and [place] chard. ? Peanuts. ? Potato chips, [place] fries, and baked potatoes with skin on. ? Nuts and nut products. ? Chocolate. ? If you regularly take a diuretic medicine, make sure to eat at least 1 or 2 servings of fruits or vegetables that are high in potassium each day. These include: ? Avocado. ? Banana. ? Delta, prune, carrot, or tomato juice. ? Baked potato. ? Cabbage. ? Beans and split peas. Lifestyle ? Drink enough fluid to keep your urine pale yellow. This is the most important thing you can do. Spread your fluid intake throughout the day. ? If you drink alcohol: ? Limit how much you have to: ? 0?1 drink a day for women who are not . ? 0?2 drinks a day for men. ? Know how much alcohol is in your drink. [...] provider and dietitian about taking daily supplements. Depending on your health and the cause of your kidney stones, you may be told: ? Do not take high-dose supplements of vitamin C (1,000 mg a day or more). ? To take a calcium supplement. ? To take a daily probiotic supplement. ? To take other supplements such as magnesium, fish oil, or vitamin B6. ? Take kxnc-vdq-yobpbfj and prescription medicines only as told by your health care provider. These include supplements. What foods sh (more content not included)... Normal [facility] Urology Office/Clinic Noteon 02-20-2024 Urology Office/Clinic Note Chief Complaint 1 yr f/u w/ KUB and electrolyes HPI Staff 1 yr f/u w/ KUB and electrolyte panel Dx: kidney stones, hypercalciuria, hypocitraturia HCTZ 12.5mg QD & Effer-K 25mEq BID KUB done 02/08/24 Electrolytes drawn 02/08/24 Dysuria: denies Incomplete bladder emptying: denies Hematuria: denies Frequency: denies Urgency: yes Nocturia: 3x a night Stream: steady Leaking: denies Post void dripping: denies Wearing pads/ Depends: denies Urge incontinence: denies Stress incontinence: denies Incontinence without Sensory Awareness: denies Abdominal pain: denies Flank pain: denies Sexual complaints: _ History of Present Illness I have reviewed and verified the staff HPI to be accurate for this encounter. Portions of this record may have been created with voice recognition artificial intelligence software, specifically [employer], [employer] and or [employer]. Substitutions may have occurred due to the inherent limitations of voice recognition and artificial intelligence software. Review of Systems PHQ Score Initial Depression Screen Score: 0 SCORE Physical Exam Vitals & Measurements T: 36.7 ?C(Temporal Artery) HR: 83(Peripheral) RR: 16 BP: 123/84 HT: 64 in HT: 163 cm WT: 68.1 kg WT: 149.82 lb BMI: 25.63 General: Well developed, well nourished, in no acute distress. Genitourinary: Flank Pain: none. Bladder: nonpalpable. Assessment/Plan 1. Kidney stones (N20.0: Calculus of kidney) History of multiple ESWL procedures in 2020. Metabolic workup 08/11/21 - Volume 2,600 cc. U 24hr Ca 340 H. Citric acid 335 L. KUB 10/16/21 - Neg for stones. KUB 11/18/21 - Neg for stones. KUB 01/20/23 - Bilateral punctate nephrolithiasis. [1] KUB 02/08/24 - negative Discussed imaging results. Punctate stones may still be present, but do not require treatment at this time. Patient knows that she is drinking 4 to 516 ounce bottles of water daily. Discussed generalized stone prevention - pt encouraged to increase fluid intake so that he/she producing 2.5L of urine daily. Add 1/4 cup of lemon juice to water throughout the day or can also drink sugar free lemonade or clear soda. Avoid dark fabiano. Restrict sodium intake. Restrict animal protein. -Follow-up 1 year with KUB Ordered: XR Abdomen 1 View 2. Hypercalciuria (R82.994: Hypercalciuria) Metabolic workup 08/11/21 - Volume 2,600 cc. U 24hr Ca 340 H. Citric acid 335 L. 03/09/22 - K 4.0. Electrolyte panel 10/27/22 - K 3.9 wnl. [2] Electrolyte panel 02/08/24 - wnl, K 4.0 She is currently taking hydrochlorothiazide 12.5 daily. She is tolerating this well without side effects. Continue current dose, patient to call for refills. Patient has wellness labs scheduled later this summer. 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 U 24hr Ca 340 H. Citric acid 335 L. [3] Patient is taking Effer-K 25 mEq twice daily. She is tolerating this well without side effects. Continue current dose, patient to call for refills. Ordered: Urine Culture Urnls Dip Stick Auto w/o Microscopy POC 91463 4. Abnormal urinalysis (R82.90: Unspecified abnormal findings in urine) UA today with large leukocytes, negative blood/nitrites. Patient denies symptoms of UTI today. -Will send urine for culture, patient to call office if she becomes symptomatic Follow-up No qualifying data available Patient Education Dietary Guidelines to Help Prevent Kidney Stones Kidney Stones, [id number] Problem List/Past Medical History Ongoing Arthritis Flank pain Hypercalciuria Hyperlipidemia Hypertension Hypocitraturia Kidney stones Microscopic hematuria Ureteral stone with hydronephrosis Historical No qualifying data Procedure/Surgical History KUB X-ray (02/08/2024), ESWL of kidney (06/03/2021), Ureteroscopy (05/30/2021), ESWL of kidney (05/27/2021), ESWL of kidney (05/20/2021), ESWL of kidney (05/06/2021), Colonoscopy, Hysterectomy. Medications amLODIPine 5 mg Tab, 5 mg= 1 tab(s), Oral, Daily atorvastatin 40 mg Tab, 40 mg= 1 tab(s), Oral, Daily calcium (as carbonate) 600 mg oral tablet, 600 mg= 1 tab(s), Oral, BID FLUoxetine 40 mg Cap, 40 mg= 1 cap(s), Oral, Daily hydrochlorothiazide 25 mg Tab, 25 mg= 1 tab(s), Oral, Daily, 3 refills Klor-Con/EF 25 mEq oral tablet, effervescent, 25 mEq= 1 tab(s), Oral, BID, 11 refills omeprazole 40 mg Cap-DR, Oral, Daily temazepam 15 mg Cap, 15 mg= 1 cap(s), Oral, Once a day (at bedtime) Tylenol, 500 mg, Oral, BID Vitamin D3, 1000 International_Unit, Oral, Daily Allergies No Known Medication Allergies Social History Tobacco Never (less than 100 in lifetime) Tobacco Use:. Never Smokeless Tobacco Use:., 02/20/2024 Family History Arthritis: Mother and Father. Hypertension: Mother. Uterine cancer: Mother. Immunizations Vaccine Date Status Comments p (more content not included)... Normal [facility] Comment on above: Result Comment: Elec tronically Signed By: DAYAN Perez APRN, Kelsie Benítez\.br\Date and Time Signed: 02/20/24 16:06 EDT RAD - MISCon 02-12-2024 RAD - MISC [id number] FF Normal [facility] Lab Reportson 02-10-2024 Lab Reports [id number]#1.00T IFF Normal [facility] - Chemistry and C hemistry - challengeon 02-08-2024 Chloride [Moles/Vol] 102 mmol/L 98-107 [facility] CO2 [Moles/Vol] 28.0 mmol/L 21.0-32.0 [facility] Potassium [Moles/Vol] 4.0 mmol/L 3.5-5.1 [facility] Sodium [Moles/Vol] 138 mmol/L 136-145 [facility] Serum or plasma anion gap de terminationon 02-08-2024 Anion gap [Moles/Vol] 12.0 mmol/L [facility] Physician Orderon 09-12-2023 Physician Order [id number] IFF Normal [facility] RAD - MISCon 09-09-2023 RAD - MISC [id number] IFF Normal [facility] Reportson 08-22-2023 Lab Reports [id number] FF Normal [facility] XR KUB 1 VIEWon 01-20-2023 XR [...] by: EVERETT ERNANDEZ Date: 2023-01-20 11:11 Normal [facility] ELECTROLYTESon 10-27-2022 Anion gap [Moles/Vol] 12.4 mmol/L Normal [facility] Comment on above: Performed By: #### P THINT #### [facility] [address] [place] [address] Dr. Alejandrina Feng Chloride [Moles/Vol] 102 mmol/L Normal 98-107 [facility] Comment on above: Performed By: #### P THINT #### [facility] [address] [place] [address] Dr. Alejandrina Feng CO2 [Moles/Vol] 28.5 mmol/L Normal 21.0-32.0 [facility] Comment on above: Performed By: #### P THINT #### [facility] [address] [address] [address] Alejandrina Feng Potassium [Moles/Vol] 3.9 mmol/L Normal 3.5-5.1 [facility] Comment on above: Performed By: #### P THINT #### [facility] [address] [place] [address] Dr. Alejandrina Feng Sodium [Moles/Vol] 139 mmol/L Normal 136-145 [facility] Comment on above: Performed By: #### P THINT #### [facility] [address] [place] [address] Dr. Alejandrina Feng US THYROIDon 08-29-2022 US THYROID EXAMINATION: US THYR OID HISTORY: Non-toxic uninodular goiter COMPARISON: 09/06/2021 TECHNIQUE: [...] thyroid stable. TR 3 nodule TI-RADS: The [employer] [employer] TI-RADS committee's white paper recommendations for thyroid lesions classified as TR3 (mildly suspicious) are listed below: > 1.5 cm. Follow-up ultrasound in 1, 3, and 5 years. > 2.5 cm. FNA. J. Am Jose Radiol 2017;14:587-595. Electronically authenticated by: EVERETT ERNANDEZ Date: 2022-08-29 07:19 Normal [facility] XR KUB 1 VIEWon 07-14-2022 XR [...] by: JACKSON BACH Date: 2022-07-14 06:26 Normal [facility] ELECTROLYTESon 07-13-2022 Anion gap [Moles/Vol] 9.0 mmol/L Normal [facility] Comment on above: Performed By: #### E LEC #### [facility] [address] [place] [address] Dr. Alejandrina Feng Chloride [Moles/Vol] 101 mmol/L Normal 98-107 [facility] Comment on above: Performed By: #### E LEC #### [facility] [address] [place], [place] [address] Dr. Alejandrina Feng CO2 [Moles/Vol] 27.5 mmol/L Normal 21.0-32.0 [facility] Comment on above: Performed By: #### E LEC #### [facility] [address] [place], [place] [address] Dr. Alejandrina Feng Potassium [Moles/Vol] 3.5 mmol/L Normal 3.5-5.1 [facility] Comment on above: Performed By: #### E LEC #### [facility] [address] [place], [place] [address] Dr. Alejandrina Feng Sodium [Moles/Vol] 134 mmol/L Critically low 136-[address] [facility] Comment on above: Performed By: #### E LEC #### [facility] [address] [address] [address] Alejandrina Feng MG MAMM SCREEN 3D TUSHAR CADon 07-06-2022 MG MAMM SCREEN 3D TUSHAR CAD Patient: ZARIA CORONA Exam Date: 07/06/2022 : 1955 Gender:F Ordering : DR SEGUN KINGSLEY D.O. Admission #: [id number] Family : Order #: [id number] CLICK HERE TO VIEW EXAM RADIOLOGY REPORT [...] Treatments None Family Cancers None LOCATION: [facility] BREAST COMPOSITION: Heterogeneously dense,which may obscure [...] MD on 07/06/2022 at 10:00 Normal [facility] CBC AUTO DIFFon 06-20-2022 BASO # 0.1 103/ul Normal 0.0-0.1 [facility] Comment on above: Performed By: #### C BC #### [facility] [address] [place] [address] Dr. Alejandrina Feng Basophils/100 WBC (Bld) 0.4 % Normal 0.2-2.0 [facility] Comment on above: Performed By: #### C BC #### [facility] [address] [place] [address] Dr. Alejandrina Feng EO # 0.1 103/ul Normal 0.0-0.7 [facility] Comment on above: Performed By: #### C BC #### [facility] [address] [place] [address] Dr. Alejandrina Feng Eosinophils/100 WBC (Bld) 0.6 % Critically low 0.9-7.0 [facility] Comment on above: Performed By: #### C BC #### [facility] [address] [place] [address] Dr. Alejandrina Feng Erythrocyte distribution width (RBC) [Ratio] 14.6 % Normal 11.0-15.0 [facility] Comment on above: Performed By: #### C BC #### [facility] [address] [place] [address] Dr. Alejandrina Feng Hematocrit (Bld) [Volume fraction] 43.6 % Normal 36.0-48.0 [facility] Comment on above: Performed By: #### C BC #### [facility] [address] [place] [address] Dr. Alejandrina Feng Hemoglobin (Bld) [Mass/Vol] 14.1 g/dL Normal 12.0-16.0 [facility] Comment on above: Performed By: #### C BC #### [facility] [address] [place] [address] Dr. Alejandrina Feng IG # 0.07 10e3/ul Critically high 0.00-0.03 [facility] Comment on above: Performed By: #### C BC #### [facility] [address] [address] [address] Alejandrina Feng IG % 0.6 % Critically high 0.0-0.5 [facility] Comment on above: Performed By: #### C BC #### [facility] [address] [place] [address] Dr. Alejandrina Feng LYMPH # 1.6 103/ul Normal 1.2-3.8 [facility] Comment on above: Performed By: #### C BC #### [facility] [address] [place] [address] Dr. Alejandrina Feng Lymphocytes/100 WBC (Bld) 12.4 % Critically low 20.5-60.0 [facility] Comment on above: Performed By: #### C BC #### [facility] [address] [place] [address] Dr. Alejandrina Feng MANUAL DIFF REQ NO Normal [facility] Comment on above: Performed By: #### C BC #### [facility] [address] [place] [address] Dr. Alejandrina Feng MCH (RBC) [Entitic mass] 27.9 pg Normal 26.7-34.0 [facility] Comment on above: Performed By: #### C BC #### [facility] [address] [place] [address] Dr. Alejandrina Feng MCHC (RBC) [Mass/Vol] 32.3 g/dL Normal 29.9-35.2 [facility] Comment on above: Performed By: #### C BC #### [facility] [address] [place] [address] Dr. Alejandrina Feng MCV (RBC) [Entitic vol] 86.3 fL Normal 81.0-99.0 [facility] Comment on above: Performed By: #### C BC #### [facility] [address] [place] [address] Dr. Alejandrina Feng MONO # 0.9 103/ul Critically high 0.3-0.8 [facility] Comment on above: Performed By: #### C BC #### [facility] [address] [place] [address] Dr. Alejandrina Feng Monocytes/100 WBC (Bld) 7.2 % Normal 1.7-12.0 [facility] Comment on above: Performed By: #### C BC #### [facility] [address] [place] [address] Dr. Alejandrina Feng NEUT # 10.0 103/ul Critically high 1.4-6.5 [facility] Comment on above: Performed By: #### C BC #### [facility] [address] [place] [address] Dr. Alejandrina Feng Neutrophils/100 WBC (Bld) 78.8 % Critically high 43.0-75.0 [facility] Comment on above: Performed By: #### C BC #### [facility] [address] [place] [address] Dr. Alejandrina Feng Platelet mean volume (Bld) [Entitic vol] 8.8 fL Critically low 9.5-13.5 [facility] Comment on above: Performed By: #### C BC #### [facility] [address] [place] [address] Dr. Alejandrina Feng PLT 404 103/ul Normal 150-450 [facility] Comment on above: Performed By: #### C BC #### [facility] [address] [place] [address] Dr. Alejandrina Feng RBC 5.05 106/ul Normal 4.20-5.40 [facility] Comment on above: Performed By: #### C BC #### [facility] [address] [place] [address] Dr. Alejandrina Feng WBC 12.7 103/ul Critically high 4.0-11.0 [facility] Comment on above: Performed By: #### C BC #### [facility] [address] [place] [address] Dr. Alejandrina Feng PROF 14(COMP METB)on 022 Albumin [Mass/Vol] 3.6 g/dL Normal 3.4-5.0 [facility] Comment on above: Performed By: #### C MP, TSH #### [facility] [address] [address] [address] Alejandrina Feng Albumin/Globulin [Mass ratio] 0.8 {ratio} Normal [facility] Comment on above: Performed By: #### C MP, TSH #### [facility] [address] [address] [address] Alejandrina Feng ALP [Catalytic activity/Vol] 182 U/L Critically high 46-116 [facility] Comment on above: Performed By: #### C MP, TSH #### [facility] [address] [address] [address] Alejandrina Feng ALT [Catalytic activity/Vol] 29 U/L Normal 14-59 [facility] Comment on above: Performed By: #### C MP, TSH #### [facility] [address] [address] [address] Alejandrina Feng Anion gap [Moles/Vol] 13.4 mmol/L Normal [facility] Comment on above: Performed By: #### C MP, TSH #### [facility] [address] [address] [address] Alejandrina Feng AST [Catalytic activity/Vol] 22 U/L Normal 15-37 [facility] Comment on above: Performed By: #### C MP, TSH #### [facility] [address] [address] [address] Alejandrina Feng Bilirubin [Mass/Vol] 0.5 mg/dL Normal 0.2-1.0 [facility] Comment on above: Performed By: #### C MP, TSH #### [facility] [address] [address] [address] Alejandrina Feng Calcium [Mass/Vol] 9.3 mg/dL Normal 8.5-10.1 [facility] Comment on above: Performed By: #### C MP, TSH #### [facility] [address] [address] [address] Alejandrina Feng Chloride [Moles/Vol] 102 mmol/L Normal 98-107 [facility] Comment on above: Performed By: #### C MP, TSH #### [facility] [address] [address] [address] Alejandrina Feng CO2 [Moles/Vol] 26.2 mmol/L Normal 21.0-32.0 [facility] Comment on above: Performed By: #### C MP, TSH #### [facility] [address] [address] [address] Alejandrina Feng Creatinine [Mass/Vol] 0.94 mg/dL Normal 0.55-1.02 [facility] Comment on above: Performed By: #### C MP, TSH #### [facility] [address] [address] [address] Alejandrina Feng EGFR-AF KOSOVAN >60 Normal >=60 [facility] Comment on above: Performed By: #### C MP, TSH #### [facility] [address] [address] [address] Alejandrina Feng EGFR-NON AF KOSOVAN 59 mL/min/1.73m2 Critically low >=60 [facility] Comment on above: Performed By: #### C MP, TSH #### [facility] [address] [address] [address] Alejandrina Feng Globulin (S) [Mass/Vol] 4.3 g/dL Normal [facility] Comment on above: Performed By: #### C MP, TSH #### [facility] [address] [address] [address] Alejandrina Feng Glucose [Mass/Vol] 101 mg/dL Normal 74-106 [facility] Comment on above: Performed By: #### C MP, TSH #### [facility] [address] [address] [address] Alejandrina Feng Potassium [Moles/Vol] 4.6 mmol/L Normal 3.5-5.1 [facility] Comment on above: Performed By: #### C MP, TSH #### [facility] [address] [address] [address] Alejandrina Feng Protein [Mass/Vol] 7.9 g/dL Normal 6.4-8.2 [facility] Comment on above: Performed By: #### C MP, TSH #### [facility] [address] [address] [address] Alejandrina Feng Sodium [Moles/Vol] 137 mmol/L Normal 136-145 [facility] Comment on above: Performed By: #### C MP, TSH #### [facility] [address] [address] [address] Alejandrina Feng Urea nitrogen [Mass/Vol] 19.0 mg/dL Critically high 7.0-18.0 [facility] Comment on above: Performed By: #### C MP, TSH #### [facility] [address] [address] [address] Alejandrina Feng Urea nitrogen/Creatinine [Mass ratio] 20.2 mg/mg Normal [facility] Comment on above: Performed By: #### C MP, TSH #### [facility] [address] [place] [address] Dr. Alejandrina Feng TSHon 06-20-2022 TSH 0.854 uIU/mL Normal 0.358-3.740 [facility] Comment on above: Performed By: #### C MP, TSH #### [facility] [address] [address] [address] Alejandrnia Feng Covid-19 PCR ([facility])on 02-23 SARS-CoV-2 (COVID-19) RNA JACKSON+probe Ql (Unsp spec) Not detected Normal NOT DETECTED [facility] Comment on above: Result Comment: When [...] for this test is supported by the Senior Revenue Accountant of Health and Human Service's declaration that [...] used). Performed By: #### C BC #### [facility] [address] [address] [address] Alejandrina Feng ELECTROLYTESon 03-09-2022 Anion gap [Moles/Vol] 14.8 mmol/L Normal [facility] Comment on above: Performed By: #### E LEC #### [facility] [address] [address] [address] Alejandrina Feng Chloride [Moles/Vol] 103 mmol/L Normal 98-107 [facility] Comment on above: Performed By: #### E LEC #### [facility] [address] [place] [address] Dr. Alejandrina Feng CO2 [Moles/Vol] 25.2 mmol/L Normal 21.0-32.0 [facility] Comment on above: Performed By: #### E LEC #### [facility] [address] [address] [address] Alejandrina Feng Potassium [Moles/Vol] 4.0 mmol/L Normal 3.5-5.1 [facility] Comment on above: Performed By: #### E LEC #### [facility] [address] [place] [address] Dr. Alejandrina Feng Sodium [Moles/Vol] 139 mmol/L Normal 136-145 [facility] Comment on above: Performed By: #### E LEC #### [facility] [address] [place] [address] Dr. Alejandrina Feng Covid-19 PCR ([facility])on SARS-CoV-2 (COVID-19) RNA JACKSON+probe Ql (Unsp spec) Not detected Normal NOT DETECTED [facility] Comment on above: Result Comment: This test is not yet approved or cleared by the [place] FDA. When there are no FDA-approved or cleared tests available, and other criteria are met, FDA can make tests available under an emergency access mechanism called an Emergency Use Authorization (EUA). The EUA for this test is supported by the [place] of Health and Human Service's (HHS's) declaration [...] SARS-CoV-2. Performed By: #### C VDTBH #### [facility] [address] [place] [address] Dr. Alejandrina Feng BNPon 02-22-2022 Natriuretic peptide B (Bld) [Mass/Vol] 60.0 pg/mL Normal <=900.0 [facility] Comment on above: Performed By: #### P THINT #### [facility] [address] [place] [address] Dr. Alejandrina Feng CBC AUTO DIFFon 02-22-2022 BASO # 0.1 103/ul Normal 0.0-0.1 [facility] Comment on above: Performed By: #### C BC #### [facility] [address] [place] [address] Dr. Alejandrina Feng Basophils/100 WBC (Bld) 0.4 % Normal 0.2-2.0 [facility] Comment on above: Performed By: #### C BC #### [facility] [address] [place] [address] Dr. Alejandrina Feng EO # 0.2 103/ul Normal 0.0-0.7 [facility] Comment on above: Performed By: #### C BC #### [facility] [address] [place] [address] Dr. Alejandrina Feng Eosinophils/100 WBC (Bld) 1.4 % Normal 0.9-7.0 [facility] Comment on above: Performed By: #### C BC #### [facility] [address] [place] [address] Dr. Alejandrina Feng Erythrocyte distribution width (RBC) [Ratio] 13.3 % Normal 11.0-15.0 [facility] Comment on above: Performed By: #### C BC #### [facility] [address] [place] [address] Dr. Alejandrina Feng Hematocrit (Bld) [Volume fraction] 45.1 % Normal 36.0-48.0 [facility] Comment on above: Performed By: #### C BC #### [facility] [address] [place] [address] Dr. Alejandrina Feng Hemoglobin (Bld) [Mass/Vol] 14.4 g/dL Normal 12.0-16.0 [facility] Comment on above: Performed By: #### C BC #### [facility] [address] [place] [address] Dr. Alejandrina Feng IG # 0.05 10e3/ul Critically high 0.00-0.03 [facility] Comment on above: Performed By: #### C BC #### [facility] [address] [place] [address] Dr. Alejandrina Feng IG % 0.4 % Normal 0.0-0.5 [facility] Comment on above: Performed By: #### C BC #### [facility] [address] [place] [address] Dr. Alejandrina Feng LYMPH # 1.6 103/ul Normal 1.2-3.8 [facility] Comment on above: Performed By: #### C BC #### [facility] [address] [place] [address] Dr. Alejandrina Feng Lymphocytes/100 WBC (Bld) 11.2 % Critically low 20.5-60.0 [facility] Comment on above: Performed By: #### C BC #### [facility] [address] [place] [address] Dr. Alejandrina Feng MANUAL DIFF REQ NO Normal [facility] Comment on above: Performed By: #### C BC #### [facility] [address] [place] [address] Dr. Alejandrina Feng MCH (RBC) [Entitic mass] 28.0 pg Normal 26.7-34.0 [facility] Comment on above: Performed By: #### C BC #### [facility] [address] [address] [address] Alejandrina Feng MCHC (RBC) [Mass/Vol] 31.9 g/dL Normal 29.9-35.2 [facility] Comment on above: Performed By: #### C BC #### [facility] [address] [place] [address] Dr. Alejandrina Feng MCV (RBC) [Entitic vol] 87.6 fL Normal 81.0-99.0 [facility] Comment on above: Performed By: #### C BC #### [facility] [address] [place] [address] Dr. Alejandrina Feng MONO # 0.6 103/ul Normal 0.3-0.8 [facility] Comment on above: Performed By: #### C BC #### [facility] [address] [place] [address] Dr. Alejandrina Feng Monocytes/100 WBC (Bld) 4.5 % Normal 1.7-12.0 [facility] Comment on above: Performed By: #### C BC #### [facility] [address] [place] [address] Dr. Alejandrina Feng NEUT # 11.4 103/ul Critically high 1.4-6.5 [facility] Comment on above: Performed By: #### C BC #### [facility] [address] [place] [address] Dr. Alejandrina Feng Neutrophils/100 WBC (Bld) 82.1 % Critically high 43.0-75.0 [facility] Comment on above: Performed By: #### C BC #### [facility] [address] [place] [address] Dr. Alejandrina Feng Platelet mean volume (Bld) [Entitic vol] 9.1 fL Critically low 9.5-13.5 [facility] Comment on above: Performed By: #### C BC #### [facility] [address] [place] [address] Dr. Alejandrina Feng PLT 363 103/ul Normal 150-450 [facility] Comment on above: Performed By: #### C BC #### [facility] [address] [address] [address] Alejandrina Feng RBC 5.15 106/ul Normal 4.20-5.40 [facility] Comment on above: Performed By: #### C BC #### [facility] [address] [address] [address] Alejandrina Feng WBC 13.9 103/ul Critically high 4.0-11.0 [facility] Comment on above: Performed By: #### C BC #### [facility] [address] [place] [address] Dr. Alejandrina Feng PROF 14(COMP METB)on 022 Albumin [Mass/Vol] 4.0 g/dL Normal 3.4-5.0 [facility] Comment on above: Performed By: #### P THINT #### [facility] [address] [place] [address] Dr. Alejandrina Feng Albumin/Globulin [Mass ratio] 0.8 {ratio} Normal [facility] Comment on above: Performed By: #### P THINT #### [facility] [address] [place] [address] Dr. Alejandrina Feng ALP [Catalytic activity/Vol] 200 U/L Critically high 46-116 [facility] Comment on above: Performed By: #### P THINT #### [facility] [address] [place] [address] Dr. Alejandrina Feng ALT [Catalytic activity/Vol] 29 U/L Normal 14-59 [facility] Comment on above: Performed By: #### P THINT #### [facility] [address] [place] [address] Dr. Alejandrina Feng Anion gap [Moles/Vol] 12.2 mmol/L Normal [facility] Comment on above: Performed By: #### P THINT #### [facility] [address] [place] [address] Dr. Alejandrina Feng AST [Catalytic activity/Vol] 25 U/L Normal 15-37 [facility] Comment on above: Performed By: #### P THINT #### [facility] [address] [address] [address] Alejandrina Feng Bilirubin [Mass/Vol] 0.4 mg/dL Normal 0.2-1.0 [facility] Comment on above: Performed By: #### P THINT #### [facility] [address] [address] [address] Alejandrina Feng Calcium [Mass/Vol] 9.5 mg/dL Normal 8.5-10.1 [facility] Comment on above: Performed By: #### P THINT #### [facility] [address] [address] [address] Alejandrina Feng Chloride [Moles/Vol] 101 mmol/L Normal 98-107 [facility] Comment on above: Performed By: #### P THINT #### [facility] [address] [place] [address] Dr. Alejandrina Feng CO2 [Moles/Vol] 25.8 mmol/L Normal 21.0-32.0 [facility] Comment on above: Performed By: #### P THINT #### [facility] [address] [address] [address] Alejandrina Feng Creatinine [Mass/Vol] 0.69 mg/dL Normal 0.55-1.02 [facility] Comment on above: Performed By: #### P THINT #### [facility] [address] [address] [address] Alejandrina Feng EGFR-AF KOSOVAN >60 Normal >=60 [facility] Comment on above: Performed By: #### P THINT #### [facility] [address] [address] [address] Aljeandrina Feng EGFR-NON AF KOSOVAN >60 Normal >=60 [facility] Comment on above: Performed By: #### P THINT #### [facility] [address] [place] [address] Dr. Alejandrina Feng Globulin (S) [Mass/Vol] 4.8 g/dL Normal [facility] Comment on above: Performed By: #### P THINT #### [facility] [address] [address] [address] Alejandrina Feng Glucose [Mass/Vol] 96 mg/dL Normal 74-106 [facility] Comment on above: Performed By: #### P THINT #### [facility] [address] [address] [address] Alejandrina Feng Potassium [Moles/Vol] 4.0 mmol/L Normal 3.5-5.1 [facility] Comment on above: Performed By: #### P THINT #### [facility] [address] [address] [address] Alejandrina Feng Protein [Mass/Vol] 8.8 g/dL Critically high 6.4-8.2 [facility] Comment on above: Performed By: #### P THINT #### [facility] [address] [address] [address] Alejandrina Feng Sodium [Moles/Vol] 135 mmol/L Critically low 136-145 [facility] Comment on above: Performed By: #### P THINT #### [facility] [address] [address] [address] Alejandrina Feng Urea nitrogen [Mass/Vol] 18.0 mg/dL Normal 7.0-18.0 [facility] Comment on above: Performed By: #### P THINT #### [facility] [address] [place] [address] Dr. Alejandrina Feng Urea nitrogen/Creatinine [Mass ratio] 26.1 mg/mg Normal [facility] Comment on above: Performed By: #### P THINT #### [facility] [address] [place] [address] Dr. Alejandrina Feng TROPONIN, HIGH SENSITIVITYon 02-22-2022 HSTROP 7.4 pg/mL Normal 4.0-51.3 [facility] Comment on above: Result Comment: CUT- OFF POINTS HAVE BEEN ESTABLISHED BASED ON THE FOURTH UNIVERSAL DEFINITIONS OF MYOCARDIAL INFARCTION. THE UPPER REFERENCE LIMIT (URL) OF TROPONIN, DEFINED THE 99TH PERCENTILE OF cTnI DISTRIBUTION IN A REFERENCE POPULATION, HAS BEEN CONFIRMED THE DECISION THRESHOLD FOR CO DIAGNOSIS. Performed By: #### H STROPN #### [facility] [address] [place] [address] Dr. Alejandrina Feng HSTROP 6.4 pg/mL Normal 4.0-51.3 [facility] Comment on above: Result Comment: CUT- OFF POINTS HAVE BEEN ESTABLISHED BASED ON THE FOURTH UNIVERSAL DEFINITIONS OF MYOCARDIAL INFARCTION. THE UPPER REFERENCE LIMIT (URL) OF TROPONIN, DEFINED THE 99TH PERCENTILE OF cTnI DISTRIBUTION IN A REFERENCE POPULATION, HAS BEEN CONFIRMED THE DECISION THRESHOLD FOR CO DIAGNOSIS. Performed By: #### P THINT #### [facility] [address] [place] [address] Dr. Alejandrina Feng XR CHEST 1 Von [...] by: EVERETT ERNANDEZ Date: 2022-02-22 13:20 Normal [facility] OSMOLALITYon 02-02-2022 Osmolality [Osmolality] 284 mosm/kg Normal 280-301 [facility] Comment on above: Performed By: #### P THINT #### [facility] [address] [place] [address] Dr. Alejandrina Feng OSMOLALITY URINEon Osmolality, Urine 629 mOsmol/kg Normal [facility] Comment on above: Result Comment: 24 h r : 300 - 900 Random: 50 - 1400 After 12hr fluid restriction: >850 Performed By: #### O SMOU #### [facility] [address] [place] [address] Dr. Alejandrina Feng PTH INTACTon 02-01-2022 PTH, Intact 42 pg/mL Normal 15-65 [facility] Comment on above: Performed By: #### P THINT #### [facility] [address] [place] [address] Dr. Alejandrina Feng PROF CHEM 8 (BAS METB)on Anion gap [Moles/Vol] 12.7 mmol/L Normal [facility] Comment on above: Performed By: #### P THINT #### [facility] [address] [address] [address] Alejandrina Feng Calcium [Mass/Vol] 8.7 mg/dL Normal 8.5-10.1 [facility] Comment on above: Performed By: #### P THINT #### [facility] [address] [address] [address] Alejandrina Feng Chloride [Moles/Vol] 100 mmol/L Normal 98-107 [facility] Comment on above: Performed By: #### P THINT #### [facility] [address] [place] [address] Dr. Alejandrina Feng CO2 [Moles/Vol] 27.7 mmol/L Normal 21.0-32.0 [facility] Comment on above: Performed By: #### P THINT #### [facility] [address] [address] [address] Alejandrina Feng Creatinine [Mass/Vol] 0.65 mg/dL Normal 0.55-1.02 [facility] Comment on above: Performed By: #### P THINT #### [facility] [address] [place] [address] Dr. Alejandrina Feng EGFR-AF KOSOVAN >60 Normal >=60 The [facility] Comment on above: Performed By: #### P THINT #### [facility] [address] [address] [address] Alejandrina Feng EGFR-NON AF KOSOVAN >60 Normal >=60 The [facility] Comment on above: Performed By: #### P THINT #### [facility] [address] [address] [address] Alejandrina Feng Glucose [Mass/Vol] 103 mg/dL Normal 74-106 The [facility] Comment on above: Performed By: #### P THINT #### [facility] [address] [address] [address] Alejandrina Feng Potassium [Moles/Vol] 3.4 mmol/L Critically low 3.5-5.1 [facility] Comment on above: Performed By: #### P THINT #### [facility] [address] [place] [address] Dr. Alejandrina Feng Sodium [Moles/Vol] 137 mmol/L Normal 136-145 [facility] Comment on above: Performed By: #### P THINT #### [facility] [address] [place] [address] Dr. Alejandrina Feng Urea nitrogen [Mass/Vol] 15.0 mg/dL Normal 7.0-18.0 [facility] Comment on above: Performed By: #### P THINT #### [facility] [address] [place] [address] Dr. Alejandrina Feng Urea nitrogen/Creatinine [Mass ratio] 23.1 mg/mg Normal [facility] Comment on above: Performed By: #### P THINT #### [facility] [address] [place] [address] Dr. Alejandrina Feng SODIUM RANDOM URINEon 2021 Sodium (U) [Moles/Vol] 74 mmol/L Normal 30-90 [facility] Comment on above: Performed By: #### N AU #### [facility] [address] [place] [address] Dr. Alejandrina Feng TSHon 01-31-2022 TSH 0.791 uIU/mL Normal 0.358-3.[address] [facility] Comment on above: Performed By: #### P THINT #### [facility] [address] [place] [address] Dr. Alejandrina Feng TSH RANGE SEE BELOW Normal [facility] Comment on above: Result Comment: <0.3 4 UIU/ml HYPERTHYROID 0.34-5.60 UIU/ml EUTHYROID >5.60 UIU/ml HYPOTHYROID Performed By: #### P THINT #### [facility] [address] [place] [address] Dr. Alejandrina Feng Vital Signs Date Time Vital Sign Value Performing Clinician Facility 04-15-2024 14:16-0400 Body height 162.56 cm [facility] 04-15-2024 14:16-0400 Body mass index (BMI) [Ratio] 25.9 kg/m2 [facility] 04-15-2024 14:16-0400 Body weight 68.71 kg [facility] 04-15-2024 14:16-0400 Diastolic blood pressure 83 mm[Hg] [facility] 04-15-2024 14:16-0400 Heart rate 80 /min [facility] 04-15-2024 14:16-0400 Respiratory rate 12 /min [facility] 04-15-2024 14:16-0400 Systolic blood pressure 123 mm[Hg] [facility] 02-20-2024 14:50-0400 Blood Pressure Location Kelsie Orzech [facility] 02-20-2024 14:50-0400 Body temperature 98.06 [degF] Kelsie Orzech [facility] 02-20-2024 14:50-0400 Diastolic blood pressure 84 mm[Hg] Kelsie Orzech [facility] 02-20-2024 14:50-0400 Heart rate 83 /min Kelsie Orzech [facility] 02-20-2024 14:50-0400 Respiratory rate 16 /min Kelsie Orzech [facility] 02-20-2024 14:50-0400 Systolic blood pressure 123 mm[Hg] Kelsie Orzech [facility] 02-20-2024 12:02-0400 Body height 162.56 cm [facility] 02-20-2024 12:02-0400 Body mass index (BMI) [Ratio] 25.8 kg/m2 [facility] 02-20-2024 12:02-0400 Body weight 68.26 kg [facility] 02-20-2024 12:02-0400 Diastolic blood pressure 82 mm[Hg] [facility] 02-20-2024 12:02-0400 Heart rate 83 /min [facility] 02-20-2024 12:02-0400 Respiratory rate 12 /min [facility] 02-20-2024 12:02-0400 Systolic blood pressure 130 mm[Hg] [facility] 12-27-2023 09:02-0400 Body height 162.56 cm [facility] 12-27-2023 09:02-0400 Body mass index (BMI) [Ratio] 26.2 kg/m2 [facility] 12-27-2023 09:02-0400 Body weight 69.11 kg [facility] 12-27-2023 09:02-0400 Diastolic blood pressure 84 mm[Hg] [facility] 12-27-2023 09:02-0400 Heart rate 76 /min [facility] 12-27-2023 09:02-0400 Respiratory rate 12 /min [facility] 12-27-2023 09:02-0400 Systolic blood pressure 127 mm[Hg] [facility] 12-19-2023 08:57-0400 Body height 162.56 cm [facility] 12-19-2023 08:57-0400 Body mass index (BMI) [Ratio] 25.9 kg/m2 [facility] 12-19-2023 08:57-0400 Body weight 68.54 kg [facility] 12-19-2023 08:57-0400 Diastolic blood pressure 85 mm[Hg] [facility] 12-19-2023 08:57-0400 Heart rate 98 /min [facility] 12-19-2023 08:57-0400 Respiratory rate 12 /min [facility] 12-19-2023 08:57-0400 Systolic blood pressure 124 mm[Hg] [facility] 10-09-2023 10:00-0500 Body height 162.56 cm Segun Ball Other [facility] 10-09-2023 10:00-0500 Body mass index (BMI) [Ratio] 25.81 kg/m2 Segun Ball Other [facility] [employer] Other 10-09-2023 10:00-0500 Body weight 68.22 kg Segun Ball Other [facility] 10-09-2023 10:00-0500 Diastolic blood pressure 83 mm[Hg] Segun Ball Other [facility] 10-09-2023 10:00-0500 Respiratory rate 12 /min Segun Ball Other [facility] [employer] Other 10-09-2023 10:00-0500 Systolic blood pressure 126 mm[Hg] Segun Ball Other [facility] 09-19-2023 13:45-0500 Body height 162.56 cm Segun Ball Other [facility] [employer] Other 09-19-2023 13:45-0500 Body mass index (BMI) [Ratio] 26.02 kg/m2 Segun Ball Other [employer] Other 09-19-2023 13:45-0500 Body weight 68.77 kg Segun Ball Other [employer] Other 09-19-2023 13:45-0500 Diastolic blood pressure 79 mm[Hg] Segun Ball Other [employer] Other 09-19-2023 13:45-0500 Respiratory rate 12 /min Segun Ball Other [email or web address] Other 09-19-2023 13:45-0500 Systolic blood pressure 123 mm[Hg] Segun Ball Other [email or web address] Other 04-10-2023 11:00-0400 Body height 162.56 cm Segun Ball Other [email or web address] Other 04-10-2023 11:00-0400 Body mass index (BMI) [Ratio] 26.29 kg/m2 Segun Ball Other [email or web address] Other 04-10-2023 11:00-0400 Body weight 69.49 kg Segun Ball Other [email or web address] Other 04-10-2023 11:00-0400 Diastolic blood pressure 74 mm[Hg] Segun Ball Other [email or web address] Other 04-10-2023 11:00-0400 Respiratory rate 12 /min Segun Ball Other [email or web address] Other 04-10-2023 11:00-0400 Systolic blood pressure 108 mm[Hg] Segun Ball Other [email or web address] Other 01-25-2023 12:30-0400 Body height 162.56 cm Segun Ball Other [email or web address] Other 01-25-2023 12:30-0400 Body mass index (BMI) [Ratio] 26.05 kg/m2 Segun Ball Other [email or web address] Other 01-25-2023 12:30-0400 Body weight 68.86 kg Segun Ball Other [email or web address] Other 01-25-2023 12:30-0400 Diastolic blood pressure 81 mm[Hg] Segun Ball Other [email or web address] Other 01-25-2023 12:30-0400 Respiratory rate 12 /min Segun Ball Other [email or web address] Other 01-25-2023 12:30-0400 Systolic blood pressure 119 mm[Hg] Segun Ball Other [email or web address] Other 12-06-2022 11:00-0400 Body height 162.56 cm Segun Ball Other [email or web address] Other 12-06-2022 11:00-0400 Body mass index (BMI) [Ratio] 25.98 kg/m2 Segun Ball Other [email or web address] Other 12-06-2022 11:00-0400 Body weight 68.68 kg Segun Ball Other [email or web address] Other 12-06-2022 11:00-0400 Diastolic blood pressure 74 mm[Hg] Segun Ball Other [email or web address] Other 12-06-2022 11:00-0400 Respiratory rate 16 /min Segun Ball Other [email or web address] Other 12-06-2022 11:00-0400 Systolic blood pressure 117 mm[Hg] Segun Ball Other [email or web address] Other 07-13-2022 13:16-0400 Blood Pressure Location NOE SVITLANA [facility] 07-13-2022 13:16-0400 Diastolic blood pressure 88 mm[Hg] NOE SVITLANA [facility] 07-13-2022 13:16-0400 Heart rate 79 /min NOE SVITLANA [facility] 07-13-2022 13:16-0400 Respiratory rate 16 /min NOE SVITLANA [facility] 07-13-2022 13:16-0400 Systolic blood pressure 138 mm[Hg] NOE SHANE [facility] [place] Encounters Encounter Date Encounter Type Care Provider Facility Start: 02-24-2025 ambulatory Enrique Boss ty:[facility] Start: 04-15-2024 End: 04-15-2024 ambulatory [facility] Work Phone: Start: 04-15-2024 End: 04-15-2024 Patient encounter procedure [facility] Work Phone: Start: 02-20-2024 End: 02-20-2024 Lab Drop off Kelsie X Orzech [facility] Start: 02-20-2024 End: 02-20-2024 ambulatory Kelsie X Orzech Facility:[facility] Start: 02-20-2024 End: 02-20-2024 Patient encounter procedure Kelsie X Orzech [facility] Start: 02-20-2024 End: 02-20-2024 ambulatory [facility] Work Phone: Start: 02-20-2024 End: 02-20-2024 Patient encounter procedure [facility] Work Phone: Start: 02-08-2024 Non-patient / Non-visit [facility] Work Phone: Start: 12-27-2023 End: 12-27-2023 ambulatory [facility] Work Phone: Start: 12-27-2023 End: 12-27-2023 Patient encounter procedure [facility] Work Phone: Start: 12-19-2023 End: 12-19-2023 ambulatory [facility] Work Phone: Start: 12-19-2023 End: 12-19-2023 Patient encounter procedure [facility] Physician [facility] Work Phone: Start: 11-29-2023 Non-patient / Non-visit [facility] [employer] Work Phone: Start: 10-10-2023 End: 10-10-2023 ambulatory Segun Ball Other [email or web address] Other Start: 10-10-2023 Telephone encounter Segun Ball [facility] Start: 10-09-2023 End: 10-09-2023 ambulatory Segun Ball Other [email or web address] Other Start: 10-09-2023 Office outpatient vi sit 25 minutes Segun Ball [facility] Start: 10-09-2023 End: 10-09-2023 Patient encounter procedure [facility] Work Phone: Start: 09-22-2023 End: 09-22-2023 ambulatory Segun Ball Other [email or web address] Other Start: 09-22-2023 Telephone encounter Segun Ball [facility] Start: 09-19-2023 End: 09-19-2023 ambulatory Segun Ball Other [email or web address] Other Start: 09-19-2023 Office outpatient vi sit 15 minutes Segun Ball [facility] Start: 09-13-2023 Telephone encounter Segun Ball [facility] Start: 09-13-2023 End: 09-13-2023 ambulatory ELOINA HERNANDEZCOOdilon [facility] [employer] Other Start: 07-19-2023 End: 07-19-2023 ambulatory Segun Ball Other [email or web address] Other Start: 07-19-2023 Office outpatient vi sit 15 minutes Segun Ball [facility] Start: 06-20-2023 End: 06-20-2023 ambulatory Segun Ball Other [email or web address] Other Start: 06-20-2023 Telephone encounter Segun Kingsley [facility] Start: 04-13-2023 End: 04-13-2023 ambulatory Segun Kingsley Other [email or web address] Other Start: 04-13-2023 Telephone encounter Segun COVINGTON [facility] Start: 04-10-2023 End: 04-10-2023 ambulatory Segun Kingsley Other [email or web address] Other Start: 04-10-2023 Encounter for genera l adult medical examination without abnormal findings Segun Kingsley [facility] Start: 04-10-2023 Periodic preventive med est patient 65yrs& older Segun Kingsley [facility] Start: 01-25-2023 End: 01-25-2023 ambulatory Segun Kingsley Other [email or web address] Other Start: 01-25-2023 Office outpatient vi sit 15 minutes Segun Kingsley [facility] Start: 01-20-2023 End: 01-21-[address] ENRIQUE VÁSQUEZ . Facility:[facility] Start: 12-06-2022 End: 12-06-2022 ambulatory Segun Sancho Other [email or web address] Other Start: 12-06-2022 Office outpatient vi sit 25 minutes Segun Sancho [facility] Start: 10-27-2022 End: 10-28-[address] ENRIQUE VÁSQUEZ . Facility:[facility] Start: 08-26-2022 End: 08-27-[address] ELOINA DUMONT Facility:[facility] Start: 07-13-2022 End: 07-14-2022 ambulatory Jackson Bach Facility:[facility] Start: 07-13-2022 End: 07-13-2022 Patient encounter procedure NOE SHANE [facility] [place] Start: 07-06-2022 End: 07-07-[address] SEGUN KINGSLEY Facility:[facility] Start: 06-20-2022 End: 06-21-[address] SEGUN KINGSLEY Facility:[facility] Start: 04-01-2022 Adult health examination Segun Kingsley Other [facility] [employer] Other Start: 03-11-2022 End: 03-11-[address] SEGUN KINGSLEY Facility:[facility] Start: 03-09-2022 End: 03-10-[address] ENRIQUE VÁSQUEZ . Facility:[facility] Start: 03-02-2022 End: 03-02-[address] SEGUN KINGSLEY Facility:[facility] Start: 02-22-2022 End: 02-22-[address] SEGUN KINGSLEY Facility:[facility] Start: 01-31-2022 End: 02-01-[address] SEGUN KINGSLEY Facility:[facility] Procedures Date Procedure Procedure Detail Performing Clinician Start: 02-08-2024 Radiography of womvsl-likqni-gjfwiuk Kelsie Oredie Start: 06-03-2021 Extracorporeal shock wave lithotripsy of calculus of kidney NOE SVITLANA Start: 05-30-2021 Ureteroscopy NOE P ERRRoberto Start: 05-27-2021 Extracorporeal shock wave lithotripsy of calculus of kidney NOE SVITLANA Start: 05-20-2021 Extracorporeal shock wave lithotripsy of calculus of kidney NOE SVITLANA Start: 05-06-2021 Extracorporeal shock wave lithotripsy of calculus of kidney NOE SVITLANA Colonoscopy NOE SVITLANA End: 07-19-2021 Hyperlipidemia screening Segun Kingsley Other Hysterectomy NOE AUGUSTINERY Screening for malign ant neoplasm of breast Segun Kingsley Other Plan of Treatment Date Care Activity Detail Author MG Breast - bilatera l Screening [facility] Patient Education Low back pain in adults [facility] Work Phone: XR Foot - right GE [address] [facility] Immunizations Immunization Date Immunization Notes Care Provider Danyelle kumari 06-22-2022 influenza virus vaccine, split virus (incl. purified surface antigen) Segun Kingsley Other [email or web address] Other 06-22-2022 influenza virus vaccine, unspecified formulation [facility] 06-22-2022 influenza, high dose seasonal, preservative-free Segun Kingsley Other [email or web address] Other 04-01-2022 pneumococcal conjuga te vaccine, 13 valent NOE SVITLANA [facility] 09-01-2021 COVID-19 Vaccine Pfi zer - Documentation Purposes Only Segun Kingsley Other [facility] 09-01-2021 SARS-CoV-2 (COVID-19 ) Ad26 vaccine, recombinant NOE SHANE [facility] 07-19-2021 influenza virus vaccine, split virus (incl. purified surface antigen) Segun Kingsley Other [email or web address] Other 07-19-2021 influenza virus vaccine, unspecified formulation [facility] 05-26-2021 influenza virus vaccine, unspecified formulation NOE SVITLANA [facility] 01-05-2021 diphtheria, tetanus toxoids and acellular pertussis vaccine, unspecified formulation Segun Kingsley Other [facility] 01-05-2021 tetanus toxoid, redu agustin diphtheria toxoid, and acellular pertussis vaccine, adsorbed NOE SVITLANA [facility] 12-25-2020 COVID-19, mRNA, LNP- S, PF, 30 mcg/0.3 mL dose NOE SVITLANA [facility] Comment on above: Reason for Medicatio n: Prophylaxis 12-04-2020 COVID-19, mRNA, LNP- S, PF, 30 mcg/0.3 mL dose NOE SHANE [facility] Comment on above: Reason for Medicatio n: Prophylaxis 08-14-2020 pneumococcal polysaccharide vaccine, 23 valent Segun Kingsley Other [facility] 08-11-2020 influenza virus vaccine, split virus (incl. purified surface antigen) Segun Kingsley Other [email or web address] Other 08-11-2020 influenza virus vaccine, unspecified formulation [facility] 08-10-2020 influenza virus vaccine, unspecified formulation NOE SHANE [facility] 07-25-2018 influenza virus vaccine, split virus (incl. purified surface antigen) Segun Kingsley Other [email or web address] Other 07-25-2018 influenza virus vaccine, unspecified formulation NOE SHANE [facility] 10-12-2017 influenza virus vaccine, split virus (incl. purified surface antigen) eSgun Kingsley Other [email or web address] Other 10-12-2017 influenza virus vaccine, unspecified formulation [facility] Payers Date Payer Category Payer Medicare [id number] 1960 Unknown [id number]. [id number] 1955 Unknown [id number] 2.16.84 [id number] 1955 Unknown [id number] 2.16.84 [id number] 1954 Unknown [id number] 2.16.84 [id number] 1954 Unknown [id number] 2.16.84 [id number] 1954 Unknown [id number] 2.16.84 [id number] 1954 Unknown [id number] 2.16.84 [id number] 1954 Unknown [id number] 2.16.84 [id number] 1954 Unknown [id number] 2.16.84 [id number] 1954 Unknown [id number] 2.16.84 [id number] 1954 Unknown [id number] 2.16.84 [id number] 1954 Unknown [id number] 2.16.84 [id number] 1954 Unknown [id number] 2.16.840 .[id number] 1954 Unknown [id number] 2.16.8 [id number] 1954 Unknown [id number] 2.16.8 [id number] 1954 Unknown [id number] 2.16.8 [id number] Social History Date Type Detail Facility Start: 07-13-2022 End: 12-18-2023 Tobacco smoking status Never smoked tobacco (finding) [facility] Tobacco smoking status Never [facility] Sex Assigned At Female [facility] Start: 1955 Sex Assigned At Female [facility] Functional Status Date Assessment Result Facility 02-20-2024 Functional Status N/A [facility] 07-13-2022 Functional Status N/A [facility] Clinical Notes 07-13-2022 to 02-20-2024 Note Date & Type Note Facility 02-20-2024 Hospital Discharg e instructions Patient Education 02/20/2024 16:06:08 Dietary Guidelines to Help Prevent Kidney Stones Dietary Guidelines to Help Prevent Kidney Stones Kidney stones are deposits of minerals and salts that form inside your kidneys. Your risk of developing kidney stones may be greater depending on your diet, your lifestyle, the medicines you take, and whether you have certain medical conditions. Most people can lower their risks of developing kidney stones by following these dietary guidelines. Your dietitian may give you more specific instructions depending on your overall health and the type of kidney stones you tend to develop. What are tips for following this plan? Reading food labels Choose foods with no salt added or low-salt labels. Limit your salt (sodium) intake to less than 1,500 mg a day. Choose foods with calcium for each meal and snack. Try to eat about 300 mg of calcium at each meal. Foods that contain 200 500 mg of calcium a serving include: ?8 oz (237 mL) of milk, sckimfw-svzmfbfzoipk-rzooj milk, and calcium-fortifiedfruit juice. Calcium-fortified means that calcium has been added to these drinks. ?8 oz (237 mL) of kefir, yogurt, and soy yogurt. ?4 oz (114 g) of tofu. ?1 oz (28 g) of cheese. ?1 cup (150 g) of dried figs. ?1 cup (91 g) of cooked broccoli. ?One 3 oz (85 g) can of sardines or mackerel. Most people need 1,000 1,500 mg of calcium a day. Talk to your dietitian about how much calcium is recommended for you. Shopping Buy plenty of fresh fruits and vegetables. Most people do not need to avoid fruits and vegetables, even if these foods contain nutrients that may contribute to kidney stones. When shopping for convenience foods, choose: ?Whole pieces of fruit. ?Pre-made salads with dressing on the side. ?Low-fat fruit and yogurt smoothies. Avoid buying frozen meals or prepared deli foods. These can be high in sodium. Look for foods with live cultures, such as yogurt and kefir. Choose high-fiber grains, such as whole-wheat breads, oat bran, and wheat cereals. Cooking Do not add salt to food when cooking. Place a salt shaker on the table and allow each person to add their own salt to taste. Use vegetable protein, such as beans, textured vegetable protein (TVP), or tofu, instead of meat in pasta, casseroles, and soups. Meal planning Eat less salt, if told by your dietitian. To do this: ?Avoid eating processed or pre-made food. ?Avoid eating fast food. Eat less animal protein, including cheese, meat, poultry, or fish, if told by your dietitian. To do this: ?Limit the number of times you have meat, poultry, fish, or cheese each week. Eat a diet free of meat at least 2 days a week. ?Eat only one serving each day of meat, poultry, fish, or seafood. ?When you prepare animal proteins, cut pieces into small portion sizes. For most meat and fish, one serving is about the size of the palm of your hand. Eat at least five servings of fresh fruits and vegetables each day. To do this: ?Keep fruits and vegetables on hand for snacks. ?Eat one piece of fruit or a handful of berries with breakfast. ?Have a salad and fruit at lunch. ?Have two kinds of vegetables at dinner. You may be told to limit foods that are high in a substance called oxalate. These include: ?Spinach (cooked), rhubarb, beets, sweet potatoes, and [place] chard. ?Peanuts. ?Potato chips, [place] fries, and baked potatoes with skin on. ?Nuts and nut products. ?Chocolate. If you regularly take a diuretic medicine, make sure to eat at least 1 or 2 servings of fruits or vegetables that are high in potassium each day. These include: ?Avocado. ?Banana. ?Delta, prune, carrot, or tomato juice. ?Baked potato. ?Cabbage. ?Beans and split peas. Lifestyle Drink enough fluid to keep your urine pale yellow. This is the most important thing you can do. Spread your fluid intake throughout the day. If you drink alcohol: ?Limit how much you have to: ?0 1 drink a day for women who are not . ?0 2 drinks a day for men. ?Know how much alcohol is in your drink. In the [place] one drink equals one 12 oz bottle of beer (355 mL), one 5 oz glass of wine (148 mL), or one 1 oz glass of hard liquor (44 mL). Lose weight if told by your health care provider. Work with your dietitian to find an eating plan and weight loss strategies that work best for you. General information Talk to your health care provider and dietitian about taking daily supplements. Depending on your health and the cause of your kidney stones, you may be told: ?Do not take high-dose supplements of vitamin C (1,000 mg a day or more). ?To take a calcium supplement. ?To take a daily probiotic supplement. ?To take other supplements such as magnesium, fish oil, or vitamin B6. Take laof-yoq-vvkhdyi and prescription medicines only as told by your health care provider. These include supplements. What foods should I limit? Limit your intake of the following foods, or eat them as told by your dietitian. Vegetables Spinach. Rhubarb. Beets. Canned vegetables. Pickles. Olives. Baked potatoes with skin. Grains Wheat bran. Baked goods. Salted crackers. Cereals high in sugar. Meats and other proteins Nuts. Nut butters. Large portions of meat, poultry, or fish. Salted, precooked, or cured meats, such as sausages, meat loaves, and hot dogs. Dairy Cheeses. Beverages Regular soft drinks. Regular vegetable juice. Seasonings and condiments Seasoning blends with salt. Salad dressings. Soy sauce. Ketchup. Barbecue sauce. Other foods Canned soups. Canned pasta sauce. Casseroles. Pizza. Lasagna. Frozen meals. Potato chips. [place] fries. The items listed above may not be a complete list of foods and beverages you should limit. Contact a dietitian for more information. What foods should I avoid? Talk to your dietitian about specific foods you should avoid based on the type of kidney stones you have and your overall health. Fruits Grapefruit. The item listed above may not be a complete list of foods and beverages you should avoid. Contact a dietitian for more information. Summary Kidney stones are deposits of minerals and salts that form inside your kidneys. You can lower your risk of kidney stones by making changes to your diet. The most important thing you can do is drink enough fluid. Drink enough fluid to keep your urine pale yellow. Talk to your dietitian about how much calcium you should have each day, and eat less salt and animal protein as told by your dietitian. This information is not intended to replace advice given to you by your health care provider. Make sure you discuss any questions you have with your health care provider. Document Revised: 12/22/2022 Document Reviewed: 12/22/2022 [employer] Patient Education 2022 [employer]. 02/20/2024 16:06:04 Kidney Stones, Vsdw-ka-Fukd Kidney Stones Kidney stones are rock-like masses [...] Follow these instructions at home: Medicines Take gcar-kmy-ufodbhy and prescription medicines only as told by [...] have with your health care provider. Document Revised: 05/16/2022 Document Reviewed: 05/16/2022 [employer] Patient Education 2022 [employer]. [facility] 10-10-2023 Evaluation note Encounter Date Diagnosis Assessment Notes Sep, COVID- 19 (ICD-1 0 - U07.1) [email or web address] Other 01-15-2024 Evaluation note* Encounter Date Diagnosis [...] interruption. Instructed to avoid d/c meds abruptly [email or web address] Other 12-26-2023 Evaluation note* Encounter Date Diagnosis [...] needed - XR to r/o compression fx [email or web address] Other 12-26-2023 Evaluation note* Encounter Date Diagnosis [...] needed - XR to r/o compression fx [email or web address] Other 12-20-2023 Evaluation note* Encounter Date Diagnosis Assessment Notes Treatment Notes Treatment Clinical Notes Aug, Nontoxic single thyroid nodule (ICD-10 - E04.1) Serial US w/ stable size and appearance. Referred to ENT w/ no further scans recommended. [email or web address] Other 10-25-2023 Evaluation note* Encounter Date Diagnosis [...] Amlodipine to 5mg qd while taking Paxlovid [email or web address] Other 07-17-2023 Evaluation note* Encounter Date Diagnosis [...] They may safely use Tylenol as needed. 17 Mar, 2023 Screening mammogram for breast cancer (ICD-10 - Z12.31) Instructed on monthly SBE and yearly mammogram - due in Oct [email or web address] Other 05-03-2023 Evaluation note* Encounter Date Diagnosis [...] pneumonia Due for COVID booster and Shingrix [email or web address] Other 03-14-2023 Evaluation note* Encounter Date Diagnosis [...] or drinking prior to bedtime. Continue PPI [email or web address] Other [id number] Hospital Discharge instructions Patient Education 07/13/2022 13:30:11 Kidney Stones, Uwns-jr-Fsgw Kidney Stones Kidney stones are rock-like masses [...] Follow these instructions at home: Medicines Take pgkd-zbf-oznqvjv and prescription medicines only as told by [...] 02/27/2009 Document Revised: 01/28/2020 Document Reviewed: 01/28/2020 [employer] Patient Education 2019 [employer]. Follow Up Care 10/18/2021 12:21:40 With:SVITLANA IBARRA, NOE Anderson, URL Address: [address] [place] [address] [phone] When: Unknown [facility] 10-19-2022 Evaluation + Plan note Future Scheduled Tests Laboratory* Basic Metabolic Panel 07/13/22 [facility] evaluation + Plan note Future Appointments Appointment Date:02/24/2025 09:15:00 AM Scheduled Provider:Enrique VÁSQUEZ MD Location:[facility] Appointment Type:URO Office Visit [facility] evaluation + Plan note Future Appointments Appointment Date:02/24/2025 09:15:00 AM Scheduled Provider:Enrique VÁSQUEZ MD Location:[facility] Appointment Type:URO Office Visit Diagnostic Tests Pending * [facility] [place] [employer] Other Evaluation note* Diagnosis Onset Date Resolution Status Plantar fasciitis of right foot noneactive Right foot pain noneactive [facility] Work Phone: Evaluation note* Diagnosis Onset Date Resolution Status Plantar fasciitis of right foot noneactive Right foot pain noneactive Essential (primary) hypertension acute Osteoporosis acute Avulsion fracture of metatarsal bone of right foot noneactive [facility] Work Phone: Evaluation note* Diagnosis Onset Date Resolution Status Plantar fasciitis of right foot noneactive Right foot pain noneactive Osteoporosis acute Avulsion fracture of metatarsal bone of right foot noneactive [facility] Work Phone: Evaluation note* Diagnosis Onset Date Resolution Status IBS (irritable bowel syndrome) acute Low back pain acute Elevated cholesterol acute Essential (primary) hypertension acute Gastroesophageal reflux dise ase with esophagitis without hemorrhage acute Lumbar spondylosis acute Osteoporosis acute Primary insomnia acute Recurrent major depressive d isorder, in full remission acute Screening mammogram for breast cancer noneactive [facility] Work Phone: History general Narrative - Reported* [...] GENEVA/BSO 2009 Hospitalization History SEE SURGICAL HX [facility] [employer] Other [facility] - [facility] [employer] Other Hospital course Narrative No data available for this section [facility] Hospital Discharge instructions No data available for this section [facility] No data available for this section [facility] reason for referral (narrative)* Reason Referral for treatme nt of chronic low back pain Diagnosis 1 Acute bilateral low back pain without sciatica (M54.50) Diagnosis 2 Lumbar spondylosis ( M47.816) Referral Organization [facility] Becca C rob Referring Provider First Name Segun Referring Provider Last Name Sancho Referring Provider Specialty Internal Me dicine Referred Organization [facility] Referred Address [address], [place],[address] Referred Provider Specialty Pain Medicin e Referral [...] for injections. Clinical Notes Include XR results [email or web address] Other Summary Purpose Family History Relationship Condition Age at Onset Recorded Date/T david father Unknown Heart disease Unknown Not Specified Unknown Hypertension Unknown Malignant neoplasm Unknown Relationship Condition Age at Onset Recorded Date/T david father Unknown Heart disease Unknown mother Unknown Hypertension Unknown Malignant neoplasm Unknown Advance [...] fracture of metatarsal bone of right foot Chief Complaint Amb Documentation hurt right foot Right Side of Foot stomcah and bowel concerns Reason for Visit Plantar fasciitis of right foot Right foot pain Osteoporosis Avulsion fracture of metatarsal bone of right foot Chief Complaint stomcah and bowel co ncerns wellness Reason for Visit IBS (irritable bowel syndrome) Low back pain Elevated cholesterol Essential (primary) hypertension Gastroesophageal reflux 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 Lumbar spondylosis Osteoporosis Primary insomnia Recurrent major depressive disorder, in full remission Screening mammogram for breast cancer Additional Source Comments Patient Care team informatio n (unrecognized section and content) Team Status: Active Member Role Status Dates Segun Kingsley DO Primary Care Provider Active Team Status: Active Member Role Status Dates Segun Kingsley DO Primary Care Provider Active Start: November 29, 2023 RICH Che Attending Provider Active Start : November 29, 2023 Team Status: Inactive Member Role Status Dates Segun Kingsley DO Primary Care Provide r, Attending Provider Active Start: December 19, 2023 End: December 19, 2023 Team Status: Inactive Member Role Status Dates Segun Kingsley Primary Care Provide r, Attending Provider Active Start: December 27, 2023 End: December 27, 2023 Team Status: Active Member Role Status Dates Segun Kingsley DO Primary Care Provider Active Start: February 08, 2024 Enrique Vásquez MD Attending Provider Active St art: February 08, 2024 Team Status: Inactive Member Role Status Dates Segun Kingsley DO Primary Care Provide r, Attending Provider Active Start: February 20, 2024 End: February 20, 2024 Team Status: Inactive Member Role Status Dates Segun Kingsley DO Attending Provider Active Sta rt: October 09, 2023 End: October 09, 2023 Team Status: Inactive Member Role Status Dates Segun Kingsley , Primary Care Provide r, Attending Provider Active Start: April 15, 2024 End: April 15, 2024 REASON FOR VISIT (unrecogniz ed section and content) 3 month Follow upPossible Sp ider [id number] COVID +No Informationback painback painXR results6 monthCOVID + INFORMATION SOURCE (unrecogn ized section and content) DATE CREATED AUTHOR 01/27/2023 [facility] DATE CREATED AUTHOR AUTHOR'S ORGANIZ ATION 09/14/2023 [facility] EPIC DATE CREATED AUTHOR AUTHOR'S ORGANIZ ATION 02/23/2024 [facility] DATE CREATED AUTHOR AUTHOR'S ORGANIZ ATION 02/28/2024 [facility] Goals (unrecognized section and content) Goals may [...] BE BASED ON THE PRIMARY CLINICAL RECORDS. [facility] [employer] [facility]. provides no warranty or guarantee of the accuracy or completeness of information in this document.
--- NOTE | 2024-05-01 07:44 | MM_ITS ---
Patient Name: ELBA CORONA MR#: [id number] : 1955 Exam Date: 05/01/2024 Ordering Doctor: DR Segun Kingsley D.O. RADIOLOGY REPORT PROCEDURE: MM TOMOSYNTHESIS SCREENING BI COMPARISON: MG MAMM SCREEN 3D TUSHAR CAD, 07/06/2022. MG MAMM SCREEN 3D TUSHAR CAD, 04/05/2021. MG MAMM SCREEN TUSHAR W CAD, 06/26/2019. MG MAMM TUSHAR SCRN W CAD DIG, 10/07/2014. INDICATIONS: Screening Calculator Name NCI Breast Cancer Risk Assessment Tool 5 Year Breast Cancer Risk 1.70% Lifetime Breast Cancer Risk 5.40% Personal Breast Cancer No Personal Ovarian Cancer No Treatments None Family Cancers None LOCATION: [facility] BREAST COMPOSITION: The breasts are heterogeneously dense,which may obscure small masses. FINDINGS: DIAGNOSTIC CATEGORY 1--NEGATIVE. RIGHT BREAST: No significant suspicious finding. No significant change has occurred. LEFT BREAST: No significant suspicious finding. No significant change has occurred. RECOMMENDATIONS: ROUTINE MAMMOGRAM AND CLINICAL EVALUATION IN 12 MONTHS. PLEASE NOTE: A NORMAL MAMMOGRAM DOES NOT EXCLUDE THE POSSIBILITY OF BREAST CANCER. A CLINICALLY SUSPICIOUS PALPABLE LUMP SHOULD BE BIOPSIED. Dictated by: Jackson Bach M.D. on 05/01/2024 at 14:02 Approved by: Jackson Bach M.D. on 05/01/2024 at 14:04
[2024-05-01 08:30] LABS: Basophils Absolute Auto 0.1 10^3/uL (0.0-0.1); Basophils Percent Auto 0.3 % (0.2-2.0); Eosinophils Absolute Auto 0.1 10^3/uL (0.0-0.7); Eosinophils Percent Auto 0.6 % (0.9-7.0); Hemoglobin 12.9 g/dL (12.0-16.0); Immature Granulocytes Abs Auto 0.09 10^3/uL (0.00-0.03); Immature Granulocytes Pct Auto 0.5 % (0.0-0.5); Lymphocytes Percent Auto 10.3 % (20.5-60.0); Mean Corpuscular HGB Conc 32.3 g/dL (29.9-35.2); Mean Corpuscular Hemoglobin 27.6 pg (26.7-34.0); Mean Corpuscular Volume 85.7 fL (81.0-99.0); Mean Platelet Volume 9.1 fL (9.5-13.5); Monocytes Absolute Auto 1.2 10^3/uL (0.3-0.8); Monocytes Percent Auto 6.2 % (1.7-12.0); Neutrophils Absolute Auto 15.6 10^3/uL (1.4-6.5); Neutrophils Percent Auto 82.1 % (43.0-75.0); Platelet Count 346 10^3/uL (150-450); Red Blood Count 4.67 10^6/uL (4.20-5.40); Red Cell Distribution Width 15.3 % (11.0-15.0)
[2024-05-01 09:09] LABS: Alanine Aminotransferase 22 U/L (14-59); Albumin Globulin Ratio 0.7; Albumin Level 3.3 g/dL (3.4-5.0); Alkaline Phosphatase 157 U/L (46-116); Anion Gap 13.3; Aspartate Amino Transferase 17 U/L (15-37); BUN Creatinine Ratio 21.4; Bilirubin Total 0.6 mg/dL (0.2-1.0); Calcium 9.1 mg/dL (8.5-10.1); Chloride 99 mmol/L (98-107); Cholesterol 155 mg/dL (<=200); Estimated GFR (African America >60 (>=60); Estimated GFR (Non-African Ame >60 (>=60); Globulin 4.7 g/dL; Glucose 124 mg/dL (74-106); HDL Cholesterol 78 mg/dL (40-60); Potassium 3.3 mmol/L (3.5-5.1); Sodium 136 mmol/L (136-145); Triglycerides 105 mg/dL (<=150)
== END 2024-05-01 07:40 | disposition home or self-care (01) ==
LOC: MAMMO 07:39
PROVIDERS: PCP Internal Medicine; Visit Provider Internal Medicine
DX: Z00.00 Encounter for general adult medical examination without abnormal findings (principal); Z12.31 Encounter for screening mammogram for malignant neoplasm of breast; E78.00 Pure hypercholesterolemia, unspecified; I10 Essential (primary) hypertension; K21.00 Gastro-esophageal reflux disease with esophagitis, without bleeding
CPT/HCPCS: 36415; 77063; 77067; 80053; 80061; 85025

== ENCOUNTER 2024-05-06 07:59 | Outpatient (OUT) | payer OTHER, SELFPAY ==
--- OUTSIDE RECORDS SUMMARY | 2024-05-06 08:08 | XMS_ITS | CCD ---
Author Organization [facility] CliniSynv Care Team Providers Care Occupational Therapy Assist Name Role Phone SEGUN KINGSLEY Primary Care [...] WILFRIDO ., STEPHAN Consulting Unavailable TIMMIS, ELOINA Pederson Attending Unavailable BALL, SEGUN E Referring Unavailable Enrique VÁSQUEZ Attending Unavailable Kelsie Perez Attending Unavailable Kelsie Perez Attending Unavailable Kelsie Perez Admitting Unavailable Allergies Allergy Classification Reported Allergen(s) Allergy Type Date of Onset Reaction(s) Facility (2 sources) patient allergy list reviewed by nurse or physicia Propensity to adverse reactions 5 Comment:Done [employer] Other (1 source) No Known Medication Allergies; Translations: [No Known Medication Allergies] Propensity to adverse reactions (disorder) [facility] Repository Medications Current Medications Medication Drug Class(es) Dates Sig (Normalized) Sig (Original) acetaminophen 500 mg oral tablet (3 sources) Start: 05-05-2021 take 500 mg by mouth twice daily Tylenol 500 mg, Oral, BID Start Date: 05/05/21 Status: Ordered [id number] actuat albuterol 0.09 mg/actuat metered dose [...] BID, # 60 tab(s), Refills(s) 11, Pharmacy: [facility]/pharmacy #[id number], 163, cm, 02/13/23 14:27:00 EDT, Height/Length Dosing, [...] 6 Episodic Other aftercare (1 source) 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; Translations: [[facility] CURRENT DRUG THERAPY] Onset: 2 Episodic Other [...] FREE TEXT SOURCE: DAYAN Perez APRN, Orzech RICE FARMWORKER, RFID TECHNICIAN-C, Kelsie X Kelsie X FINAL REPORTS Final Report [] Verified Date/Time: 02/22/2024 10:48 EDT 4,000 cfu/ml Mixed skin contaminants Performing Locations R1: This test was performed at: [facility], [address] [place] [address], [id number] , [place], [facility] [place] Comment on above: Performed By: #### 2 [id number] #### [facility] [address] [place] [id number] Screenson 02-21-2024 Screens [id number]#1.00TI FF [facility] [place] Patient Educationon 02-20-20 24 Patient Education Nephrology [...] ? 8 oz (237 mL) of milk, jmotcvp-extxpjxtetcz-er iry milk, and calcium-fortifiedfruit juice. Calcium-fortified means [...] Spinach (cooked), rhubarb, beets, sweet potatoes, and Northern Irish chard. ? Peanuts. ? Potato chips, kyrgyz fries, and baked potatoes with skin on. ? Nuts and nut products. ? Chocolate. ? If you regularly take a diuretic medicine, make sure to eat at least 1 or 2 servings of fruits or vegetables that are high in potassium each day. These include: ? Avocado. ? Banana. ? [place], prune, carrot, or tomato juice. ? Baked [...] fish oil, or vitamin B6. ? Take uqli-zis-lnfbkqx and prescription medicines only as told by your health care provider. These include supplements. What foods sh (more content not included)... Normal [facility] Urology Office/Clinic Noteon 02-20-2024 Urology Office/Clinic [...] with voice recognition artificial intelligence software, specifically [employer], [employer] and or [employer]. 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 U 24hr Ca 340 H. Citric acid 335 L. [3] Patient is taking Effer-K 25 mEq twice daily. She is tolerating this well without side effects. Continue current dose, patient to call for refills. Ordered: Urine Culture Urnls Dip Stick Auto w/o Microscopy POC 16959 4. Abnormal urinalysis (R82.90: Unspecified abnormal findings in urine) UA today with large leukocytes, negative blood/nitrites. Patient denies symptoms of UTI today. -Will send urine for culture, patient to call office if she becomes symptomatic Follow-up No qualifying data available Patient Education Dietary Guidelines to Help Prevent Kidney Stones Kidney Stones, Ifjv-wo-Ylab Problem List/Past Medical History Ongoing Arthritis Flank [...] Comments p (more content not included)... Normal [facility] Comment on above: Result Comment: Elec tronically Signed By: DAYAN Perez APRN, Kelsie Benítez\.br\Date and Time Signed: 02/20/24 16:06 EDT RAD - MISCon 02-12-2024 RAD - MISC [id number]#1.00TI FF Normal [facility] Lab Reportson 02-10-2024 Lab Reports [id number]#1.00T IFF Normal [facility] Laboratory - Chemistry and C hemistry - challengeon 02-08-2024 Chloride [Moles/Vol] 102 mmol/L 98-107 [facility] CO2 [Moles/Vol] 28.0 mmol/L 21.0-32.0 [facility] Potassium [Moles/Vol] 4.0 mmol/L 3.5-5.1 [facility] Sodium [Moles/Vol] 138 mmol/L 136-145 [facility] Serum or plasma anion gap de terminationon 02-08-2024 Anion gap [Moles/Vol] 12.0 mmol/L [facility] Physician Orderon 09-12-2023 Physician Order [id number]#1.00T IFF Normal [facility] RAD - MISCon 09-09-2023 RAD - MISC [id number]#1.00T IFF Normal [facility] Lab Reportson 08-22-2023 Lab Reports [id number]#1.00TI FF Normal [facility] XR KUB 1 VIEWon 01-20-2023 XR [...] by: EVERETT ERNANDEZ Date: 2023-01-20 11:11 Normal [facility] ELECTROLYTESon 10-27-2022 Anion gap [Moles/Vol] 12.4 mmol/L Normal [facility] Comment on above: Performed By: #### P THINT #### [facility] [address] [place] [address] Dr. Alejandrina Feng Chloride [Moles/Vol] 102 mmol/L Normal 98-107 [facility] Comment on above: Performed By: #### P THINT #### [facility] [address] [place] [address] Dr. Alejandrina Feng CO2 [Moles/Vol] 28.5 mmol/L Normal 21.0-32.0 [facility] Comment on above: Performed By: #### P THINT #### [facility] [address] [address] [address] Alejandrina Feng Potassium [Moles/Vol] 3.9 mmol/L Normal 3.5-5.1 [facility] Comment on above: Performed By: #### P THINT #### [facility] [address] [place] [address] Dr. Alejandrina Feng Sodium [Moles/Vol] 139 mmol/L Normal 136-145 [facility] Comment on above: Performed By: #### P THINT #### [facility] [address] [place] [address] Dr. Alejandrina Feng US THYROIDon 08-29-2022 US [...] thyroid stable. TR 3 nodule TI-RADS: The [place] [employer] TI-RADS committee's white paper recommendations for thyroid lesions classified as TR3 (mildly suspicious) are listed below: > 1.5 cm. Follow-up ultrasound in 1, 3, and 5 years. > 2.5 cm. FNA. J. Am Jose Radiol 2017;14:587-595. Electronically authenticated by: EVERETT ERNANDEZ Date: 2022-08-29 07:19 Normal [facility] XR KUB 1 VIEWon 07-14-2022 XR KUB [...] by: JACKSON BACH Date: 2022-07-14 06:26 Normal [facility] ELECTROLYTESon 07-13-2022 Anion gap [Moles/Vol] 9.0 mmol/L Normal [facility] Comment on above: Performed By: #### E LEC #### [facility] [address] [place] [address] Dr. Alejandrina Feng Chloride [Moles/Vol] 101 mmol/L Normal 98-107 [facility] Comment on above: Performed By: #### E LEC #### [facility] [address] [place], [place] [address] Dr. Alejandrina Feng CO2 [Moles/Vol] 27.5 mmol/L Normal 21.0-32.0 [facility] Comment on above: Performed By: #### E LEC #### [facility] [address] [place], [place] [address] Dr. Alejandrina Feng Potassium [Moles/Vol] 3.5 mmol/L Normal 3.5-5.1 [facility] Comment on above: Performed By: #### E LEC #### [facility] [address] [place], [place] [address] Dr. Alejandrina Feng Sodium [Moles/Vol] 134 mmol/L Critically low 136-145 [facility] Comment on above: Performed By: #### E LEC #### [facility] [address] [address] [address] Alejandrina Feng MG MAMM SCREEN 3D TUSHAR CADon 07-06-2022 MG MAMM SCREEN 3D TUSHAR CAD Patient: ZRAIA CORONA Exam Date: 07/06/2022 : 1955 Gender:F Ordering : DR SEGUN KINGSLEY D.O. Admission #: [id number] Family : Order #: [id number] CLICK HERE TO VIEW EXAM RADIOLOGY REPORT [...] Treatments None Family Cancers None LOCATION: [facility] BREAST COMPOSITION: Heterogeneously dense,which may obscure small [...] MD on 07/06/2022 at 10:00 Normal [facility] CBC AUTO DIFFon 06-20-2022 BASO # 0.1 103/ul Normal 0.0-0.1 [facility] Comment on above: Performed By: #### C BC #### [facility] [address] [place] [address] Dr. Alejandrina Feng Basophils/100 WBC (Bld) 0.4 % Normal 0.2-2.0 [facility] Comment on above: Performed By: #### C BC #### [facility] [address] [place] [address] Dr. Alejandrina Feng EO # 0.1 103/ul Normal 0.0-0.7 [facility] Comment on above: Performed By: #### C BC #### [facility] [address] [place] [address] Dr. Alejandrina Feng Eosinophils/100 WBC (Bld) 0.6 % Critically low 0.9-7.0 [facility] Comment on above: Performed By: #### C BC #### [facility] [address] [place] [address] Dr. Alejandrina Feng Erythrocyte distribution width (RBC) [Ratio] 14.6 % Normal 11.0-15.0 [facility] Comment on above: Performed By: #### C BC #### [facility] [address] [place] [address] Dr. Alejandrina Feng Hematocrit (Bld) [Volume fraction] 43.6 % Normal 36.0-48.0 [facility] Comment on above: Performed By: #### C BC #### [facility] [address] [place] [address] Dr. Alejandrina Feng Hemoglobin (Bld) [Mass/Vol] 14.1 g/dL Normal 12.0-16.0 [facility] Comment on above: Performed By: #### C BC #### [facility] [address] [place] [address] Dr. Alejandrina Feng IG # 0.07 10e3/ul Critically high 0.00-0.03 [facility] Comment on above: Performed By: #### C BC #### [facility] [address] [address] [address] Alejandrina Feng IG % 0.6 % Critically high 0.0-0.5 [facility] Comment on above: Performed By: #### C BC #### [facility] [address] [place] [address] Dr. Alejandrina Feng LYMPH # 1.6 103/ul Normal 1.2-3.8 [facility] Comment on above: Performed By: #### C BC #### [facility] [address] [place] [address] Dr. Alejandrina Feng Lymphocytes/100 WBC (Bld) 12.4 % Critically low 20.5-60.0 [facility] Comment on above: Performed By: #### C BC #### [facility] [address] [place] [address] Dr. Alejandrina Feng MANUAL DIFF REQ NO Normal [facility] [place] [facility] Comment on above: Performed By: #### C BC #### [facility] [address] [place] [address] Dr. Alejandrina Feng MCH (RBC) [Entitic mass] 27.9 pg Normal 26.7-34.0 [facility] Comment on above: Performed By: #### C BC #### [facility] [address] [place] [address] Dr. Alejandrina Feng MCHC (RBC) [Mass/Vol] 32.3 g/dL Normal 29.9-35.2 [facility] Comment on above: Performed By: #### C BC #### [facility] [address] [place] [address] Dr. Alejandrina Feng MCV (RBC) [Entitic vol] 86.3 fL Normal 81.0-99.0 [facility] Comment on above: Performed By: #### C BC #### [facility] [address] [place] [address] Dr. Alejandrina Feng MONO # 0.9 103/ul Critically high 0.3-0.8 [facility] Comment on above: Performed By: #### C BC #### [facility] [address] [place] [address] Dr. Alejandrina Feng Monocytes/100 WBC (Bld) 7.2 % Normal 1.7-12.0 [facility] Comment on above: Performed By: #### C BC #### [facility] [address] [place] [address] Dr. Alejandrina Feng NEUT # 10.0 103/ul Critically high 1.4-6.5 [facility] Comment on above: Performed By: #### C BC #### [facility] [address] [place] [address] Dr. Alejandrina Feng Neutrophils/100 WBC (Bld) 78.8 % Critically high 43.0-75.0 [facility] Comment on above: Performed By: #### C BC #### [facility] [address] [place] [address] Dr. Alejandrina Feng Platelet mean volume (Bld) [Entitic vol] 8.8 fL Critically low 9.5-13.5 [facility] Comment on above: Performed By: #### C BC #### [facility] [address] [place] [address] Dr. Alejandrina Feng PLT 404 103/ul Normal 150-450 [facility] Comment on above: Performed By: #### C BC #### [facility] [address] [place] [address] Dr. Alejandrina Feng RBC 5.05 106/ul Normal 4.20-5.40 [facility] Comment on above: Performed By: #### C BC #### [facility] [address] [place] [address] Dr. Alejandrina Feng WBC 12.7 103/ul Critically high 4.0-11.0 [facility] Comment on above: Performed By: #### C BC #### [facility] [address] [place] [address] Dr. Alejandrina Feng PROF 14(COMP METB)on 022 Albumin [Mass/Vol] 3.6 g/dL Normal 3.4-5.0 [facility] Comment on above: Performed By: #### C MP, TSH #### [facility] [address] [address] [address] Alejandrina Feng Albumin/Globulin [Mass ratio] 0.8 {ratio} Normal [facility] Comment on above: Performed By: #### C MP, TSH #### [facility] [address] [address] [address] Alejandrina Feng ALP [Catalytic activity/Vol] 182 U/L Critically high 46-116 [facility] Comment on above: Performed By: #### C MP, TSH #### [facility] [address] [address] [address] Alejandrina Feng ALT [Catalytic activity/Vol] 29 U/L Normal 14-59 [facility] Comment on above: Performed By: #### C MP, TSH #### [facility] [address] [address] [address] Alejandrina Feng Anion gap [Moles/Vol] 13.4 mmol/L Normal [facility] Comment on above: Performed By: #### C MP, TSH #### [facility] [address] [address] [address] Alejandrina Feng AST [Catalytic activity/Vol] 22 U/L Normal 15-37 [facility] Comment on above: Performed By: #### C MP, TSH #### [facility] [address] [address] [address] Alejandrina Feng Bilirubin [Mass/Vol] 0.5 mg/dL Normal 0.2-1.0 [facility] Comment on above: Performed By: #### C MP, TSH #### [facility] [address] [address] [address] Alejandrina Feng Calcium [Mass/Vol] 9.3 mg/dL Normal 8.5-10.1 [facility] Comment on above: Performed By: #### C MP, TSH #### [facility] [address] [address] [address] Alejandrina Feng Chloride [Moles/Vol] 102 mmol/L Normal 98-107 [facility] Comment on above: Performed By: #### C MP, TSH #### [facility] [address] [address] [address] Alejandrina Feng CO2 [Moles/Vol] 26.2 mmol/L Normal 21.0-32.0 [facility] Comment on above: Performed By: #### C MP, TSH #### [facility] [address] [address] [address] Alejandrina Feng Creatinine [Mass/Vol] 0.94 mg/dL Normal 0.55-1.02 [facility] Comment on above: Performed By: #### C MP, TSH #### [facility] [address] [address] [address] Alejandrina Feng EGFR-AF SRI LANKAN >60 Normal >=60 [facility] Comment on above: Performed By: #### C MP, TSH #### [facility] [address] [address] [address] Alejandrina Feng EGFR-NON AF SRI LANKAN 59 mL/min/1.73m2 Critically low >=60 [facility] Comment on above: Performed By: #### C MP, TSH #### [facility] [address] [address] [address] Alejandrina Feng Globulin (S) [Mass/Vol] 4.3 g/dL Normal [facility] Comment on above: Performed By: #### C MP, TSH #### [facility] [address] [address] [address] Alejandrina Feng Glucose [Mass/Vol] 101 mg/dL Normal 74-106 [facility] Comment on above: Performed By: #### C MP, TSH #### [facility] [address] [address] [address] Alejandrina Feng Potassium [Moles/Vol] 4.6 mmol/L Normal 3.5-5.1 [facility] Comment on above: Performed By: #### C MP, TSH #### [facility] [address] [address] [address] Alejandrina Feng Protein [Mass/Vol] 7.9 g/dL Normal 6.4-8.2 [facility] Comment on above: Performed By: #### C MP, TSH #### [facility] [address] [address] [address] Alejandrina Feng Sodium [Moles/Vol] 137 mmol/L Normal 136-145 [facility] Comment on above: Performed By: #### C MP, TSH #### [facility] [address] [address] [address] Alejandrina Feng Urea nitrogen [Mass/Vol] 19.0 mg/dL Critically high 7.0-18.0 [facility] Comment on above: Performed By: #### C MP, TSH #### [facility] [address] [address] [address] Alejandrina Feng Urea nitrogen/Creatinine [Mass ratio] 20.2 mg/mg Normal [facility] Comment on above: Performed By: #### C MP, TSH #### [facility] [address] [place] [address] Dr. Alejandrina Feng TSHon 06-20-2022 TSH 0.854 uIU/mL Normal 0.358-3.740 [facility] Comment on above: Performed By: #### C MP, TSH #### [facility] [address] [address] [address] Alejandrina Feng Covid-19 PCR ([facility])on 02-23 SARS-CoV-2 (COVID-19) RNA JACKSON+probe Ql (Unsp spec) Not detected Normal NOT DETECTED [facility] Comment on above: Result Comment: [...] for this test is supported by the [employer] of Health and Human Service's declaration that [...] used). Performed By: #### C BC #### [facility] [address] [address] [address] Alejandrina Feng ELECTROLYTESon 03-09-2022 Anion gap [Moles/Vol] 14.8 mmol/L Normal [facility] Comment on above: Performed By: #### E LEC #### [facility] [address] [address] [address] Alejandrina Feng Chloride [Moles/Vol] 103 mmol/L Normal 98-107 [facility] Comment on above: Performed By: #### E LEC #### [facility] [address] [place] [address] Dr. Alejandrina Feng CO2 [Moles/Vol] 25.2 mmol/L Normal 21.0-32.0 [facility] Comment on above: Performed By: #### E LEC #### [facility] [address] [address] [address] Alejandrina Feng Potassium [Moles/Vol] 4.0 mmol/L Normal 3.5-5.1 [facility] Comment on above: Performed By: #### E LEC #### [facility] [address] [place] [address] Dr. Alejandrina Feng Sodium [Moles/Vol] 139 mmol/L Normal 136-145 [facility] Comment on above: Performed By: #### E LEC #### [facility] [address] [place] [address] Dr. Alejandrina Feng Covid-19 PCR ([facility])on SARS-CoV-2 (COVID-19) RNA JACKSON+probe Ql (Unsp spec) Not detected Normal NOT DETECTED [facility] Comment on above: Result Comment: This test is not yet approved or cleared by the [place] FDA. When there are no FDA-approved or cleared tests available, and other criteria are met, FDA can make tests available under an emergency access mechanism called an Emergency Use Authorization (EUA). The EUA for this test is supported by the [place] of Health and Human Service's (HHS's) declaration [...] SARS-CoV-2. Performed By: #### C VDTBH #### [facility] [address] [place] [address] Dr. Alejandrina Feng BNPon 02-22-2022 Natriuretic peptide B (Bld) [Mass/Vol] 60.0 pg/mL Normal <=900.0 [facility] Comment on above: Performed By: #### P THINT #### [facility] [address] [place] [address] Dr. Alejandrina Feng CBC AUTO DIFFon 02-22-2022 BASO # 0.1 103/ul Normal 0.0-0.1 [facility] Comment on above: Performed By: #### C BC #### [facility] [address] [place] [address] Dr. Alejandrina Feng Basophils/100 WBC (Bld) 0.4 % Normal 0.2-2.0 [facility] Comment on above: Performed By: #### C BC #### [facility] [address] [place] [address] Dr. Alejandrina Feng EO # 0.2 103/ul Normal 0.0-0.7 [facility] Comment on above: Performed By: #### C BC #### [facility] [address] [place] [address] Dr. Alejandrina Feng Eosinophils/100 WBC (Bld) 1.4 % Normal 0.9-7.0 [facility] Comment on above: Performed By: #### C BC #### [facility] [address] [place] [address] Dr. Alejandrina Feng Erythrocyte distribution width (RBC) [Ratio] 13.3 % Normal 11.0-15.0 [facility] Comment on above: Performed By: #### C BC #### [facility] [address] [place] [address] Dr. Alejandrina Feng Hematocrit (Bld) [Volume fraction] 45.1 % Normal 36.0-48.0 [facility] Comment on above: Performed By: #### C BC #### [facility] [address] [place] [address] Dr. Alejandrina Feng Hemoglobin (Bld) [Mass/Vol] 14.4 g/dL Normal 12.0-16.0 [facility] Comment on above: Performed By: #### C BC #### [facility] [address] [place] [address] Dr. Alejandrina Feng IG # 0.05 10e3/ul Critically high 0.00-0.03 [facility] Comment on above: Performed By: #### C BC #### [facility] [address] [place] [address] Dr. Alejandrina Feng IG % 0.4 % Normal 0.0-0.5 [facility] Comment on above: Performed By: #### C BC #### [facility] [address] [place] [address] Dr. Alejandrina Feng LYMPH # 1.6 103/ul Normal 1.2-3.8 [facility] Comment on above: Performed By: #### C BC #### [facility] [address] [place] [address] Dr. Alejandrina Feng Lymphocytes/100 WBC (Bld) 11.2 % Critically low 20.5-60.0 [facility] Comment on above: Performed By: #### C BC #### [facility] [address] [place] [address] Dr. Alejandrina Feng MANUAL DIFF REQ NO Normal [facility] Comment on above: Performed By: #### C BC #### [facility] [address] [place] [address] Dr. Alejandrina Feng MCH (RBC) [Entitic mass] 28.0 pg Normal 26.7-34.0 [facility] Comment on above: Performed By: #### C BC #### [facility] [address] [address] [address] Alejandrina Feng MCHC (RBC) [Mass/Vol] 31.9 g/dL Normal 29.9-35.2 [facility] Comment on above: Performed By: #### C BC #### [facility] [address] [place] [address] Dr. Alejandrina Feng MCV (RBC) [Entitic vol] 87.6 fL Normal 81.0-99.0 [facility] Comment on above: Performed By: #### C BC #### [facility] [address] [place] [address] Dr. Alejandrina Feng MONO # 0.6 103/ul Normal 0.3-0.8 [facility] Comment on above: Performed By: #### C BC #### [facility] [address] [place] [address] Dr. Alejandrina Feng Monocytes/100 WBC (Bld) 4.5 % Normal 1.7-12.0 [facility] Comment on above: Performed By: #### C BC #### [facility] [address] [place] [address] Dr. Alejandrina Feng NEUT # 11.4 103/ul Critically high 1.4-6.5 [facility] Comment on above: Performed By: #### C BC #### [facility] [address] [place] [address] Dr. Alejandrina Feng Neutrophils/100 WBC (Bld) 82.1 % Critically high 43.0-75.0 [facility] Comment on above: Performed By: #### C BC #### [facility] [address] [place] [address] Dr. Alejandrina Feng Platelet mean volume (Bld) [Entitic vol] 9.1 fL Critically low 9.5-13.5 [facility] Comment on above: Performed By: #### C BC #### [facility] [address] [place] [address] Dr. Alejandrina Feng PLT 363 103/ul Normal 150-450 [facility] Comment on above: Performed By: #### C BC #### [facility] [address] [address] [address] Alejandrina Feng RBC 5.15 106/ul Normal 4.20-5.40 [facility] Comment on above: Performed By: #### C BC #### [facility] [address] [address] [address] Alejandrina Feng WBC 13.9 103/ul Critically high 4.0-11.0 [facility] Comment on above: Performed By: #### C BC #### [facility] [address] [place] [address] Dr. Alejandrina Feng PROF 14(COMP METB)on 022 Albumin [Mass/Vol] 4.0 g/dL Normal 3.4-5.0 [facility] Comment on above: Performed By: #### P THINT #### [facility] [address] [place] [address] Dr. Alejandrina Feng Albumin/Globulin [Mass ratio] 0.8 {ratio} Normal [facility] Comment on above: Performed By: #### P THINT #### [facility] [address] [place] [address] Dr. Alejandrina Feng ALP [Catalytic activity/Vol] 200 U/L Critically high 46-116 [facility] Comment on above: Performed By: #### P THINT #### [facility] [address] [place] [address] Dr. Alejandrina Feng ALT [Catalytic activity/Vol] 29 U/L Normal 14-59 [facility] Comment on above: Performed By: #### P THINT #### [facility] [address] [place] [address] Dr. Alejandrina Feng Anion gap [Moles/Vol] 12.2 mmol/L Normal [facility] Comment on above: Performed By: #### P THINT #### [facility] [address] [place] [address] Dr. Alejandrina Feng AST [Catalytic activity/Vol] 25 U/L Normal 15-37 [facility] Comment on above: Performed By: #### P THINT #### [facility] [address] [address] [address] Alejandrina Feng Bilirubin [Mass/Vol] 0.4 mg/dL Normal 0.2-1.0 [facility] Comment on above: Performed By: #### P THINT #### [facility] [address] [address] [address] Alejandrina Feng Calcium [Mass/Vol] 9.5 mg/dL Normal 8.5-10.1 [facility] Comment on above: Performed By: #### P THINT #### [facility] [address] [address] [address] Alejandrina Feng Chloride [Moles/Vol] 101 mmol/L Normal 98-107 [facility] Comment on above: Performed By: #### P THINT #### [facility] [address] [place] [address] Dr. Alejandrina Feng CO2 [Moles/Vol] 25.8 mmol/L Normal 21.0-32.0 [facility] Comment on above: Performed By: #### P THINT #### [facility] [address] [address] [address] Alejandrina Feng Creatinine [Mass/Vol] 0.69 mg/dL Normal 0.55-1.02 [facility] Comment on above: Performed By: #### P THINT #### [facility] [address] [address] [address] Alejandrina Feng EGFR-AF SRI LANKAN >60 Normal >=60 [facility] Comment on above: Performed By: #### P THINT #### [facility] [address] [address] [address] Alejandrina Feng EGFR-NON AF SRI LANKAN >60 Normal >=60 [facility] Comment on above: Performed By: #### P THINT #### [facility] [address] [place] [address] Dr. Alejandrina Feng Globulin (S) [Mass/Vol] 4.8 g/dL Normal [facility] Comment on above: Performed By: #### P THINT #### [facility] [address] [address] [address] Alejandrina Feng Glucose [Mass/Vol] 96 mg/dL Normal 74-106 [facility] Comment on above: Performed By: #### P THINT #### [facility] [address] [address] [address] Alejandrina Feng Potassium [Moles/Vol] 4.0 mmol/L Normal 3.5-5.1 [facility] Comment on above: Performed By: #### P THINT #### [facility] [address] [address] [address] Alejandrina Feng Protein [Mass/Vol] 8.8 g/dL Critically high 6.4-8.2 [facility] Comment on above: Performed By: #### P THINT #### [facility] [address] [address] [address] Alejandrina Feng Sodium [Moles/Vol] 135 mmol/L Critically low 136-145 [facility] Comment on above: Performed By: #### P THINT #### [facility] [address] [address] [address] Alejandrina Feng Urea nitrogen [Mass/Vol] 18.0 mg/dL Normal 7.0-18.0 [facility] Comment on above: Performed By: #### P THINT #### [facility] [address] [place] [address] Dr. Alejandrina Feng Urea nitrogen/Creatinine [Mass ratio] 26.1 mg/mg Normal [facility] Comment on above: Performed By: #### P THINT #### [facility] [address] [place] [address] Dr. Alejandrina Feng TROPONIN, HIGH SENSITIVITYon 02-22-2022 HSTROP 7.4 pg/mL Normal 4.0-51.3 [facility] Comment on above: Result Comment: CUT- OFF POINTS HAVE BEEN ESTABLISHED BASED ON THE FOURTH UNIVERSAL DEFINITIONS OF MYOCARDIAL INFARCTION. THE UPPER REFERENCE LIMIT (URL) OF TROPONIN, DEFINED THE 99TH PERCENTILE OF cTnI DISTRIBUTION IN A REFERENCE POPULATION, HAS BEEN CONFIRMED THE DECISION THRESHOLD FOR CO DIAGNOSIS. Performed By: #### H STROPN #### [facility] [address] [place] [address] Dr. Alejandrina Feng HSTROP 6.4 pg/mL Normal 4.0-51.3 [facility] Comment on above: Result Comment: CUT- OFF POINTS HAVE BEEN ESTABLISHED BASED ON THE FOURTH UNIVERSAL DEFINITIONS OF MYOCARDIAL INFARCTION. THE UPPER REFERENCE LIMIT (URL) OF TROPONIN, DEFINED THE 99TH PERCENTILE OF cTnI DISTRIBUTION IN A REFERENCE POPULATION, HAS BEEN CONFIRMED THE DECISION THRESHOLD FOR CO DIAGNOSIS. Performed By: #### P THINT #### [facility] [address] [place] [address] Dr. Alejandrina Feng XR CHEST 1 Von [...] by: EVERETT ERNANDEZ Date: 2022-02-22 13:20 Normal [facility] OSMOLALITYon 02-02-2022 Osmolality [Osmolality] 284 mosm/kg Normal 280-301 [facility] Comment on above: Performed By: #### P THINT #### [facility] [address] [place] [address] Dr. Alejandrina Feng OSMOLALITY URINEon Osmolality, Urine 629 mOsmol/kg Normal [facility] Comment on above: Result Comment: 24 h r : 300 - 900 Random: 50 - 1400 After 12hr fluid restriction: >850 Performed By: #### O SMOU #### [facility] [address] [place] [address] Dr. Alejandrina Feng PTH INTACTon 02-01-2022 PTH, Intact 42 pg/mL Normal 15-65 [facility] Comment on above: Performed By: #### P THINT #### [facility] [address] [place] [address] Dr. Alejandrina Feng PROF CHEM 8 (BAS METB)on Anion gap [Moles/Vol] 12.7 mmol/L Normal [facility] Comment on above: Performed By: #### P THINT #### [facility] [address] [address] [address] Alejandrina Feng Calcium [Mass/Vol] 8.7 mg/dL Normal 8.5-10.1 [facility] Comment on above: Performed By: #### P THINT #### [facility] [address] [address] [address] Alejandrina Feng Chloride [Moles/Vol] 100 mmol/L Normal 98-107 [facility] Comment on above: Performed By: #### P THINT #### [facility] [address] [place] [address] Dr. Alejandrina Feng CO2 [Moles/Vol] 27.7 mmol/L Normal 21.0-32.0 [facility] Comment on above: Performed By: #### P THINT #### [facility] [address] [address] [address] Alejandrina Feng Creatinine [Mass/Vol] 0.65 mg/dL Normal 0.55-1.02 [facility] Comment on above: Performed By: #### P THINT #### [facility] [address] [place] [address] Dr. Alejandrina Feng EGFR-AF SRI LANKAN >60 Normal >=60 [facility] Comment on above: Performed By: #### P THINT #### [facility] [address] [address] [address] Alejandrina Feng EGFR-NON AF SRI LANKAN >60 Normal >=60 [facility] Comment on above: Performed By: #### P THINT #### [facility] [address] [address] [address] Alejandrina Feng Glucose [Mass/Vol] 103 mg/dL Normal 74-106 [facility] Comment on above: Performed By: #### P THINT #### [facility] [address] [address] [address] Alejandrina Feng Potassium [Moles/Vol] 3.4 mmol/L Critically low 3.5-5.1 [facility] Comment on above: Performed By: #### P THINT #### [facility] [address] [place] [address] Dr. Alejandrina Feng Sodium [Moles/Vol] 137 mmol/L Normal 136-145 [facility] Comment on above: Performed By: #### P THINT #### [facility] [address] [place] [address] Dr. Alejandrina Feng Urea nitrogen [Mass/Vol] 15.0 mg/dL Normal 7.0-18.0 [facility] Comment on above: Performed By: #### P THINT #### [facility] [address] [place] [address] Dr. Alejandrina Feng Urea nitrogen/Creatinine [Mass ratio] 23.1 mg/mg Normal [facility] Comment on above: Performed By: #### P THINT #### [facility] [address] [place] [address] Dr. Alejandrina Feng SODIUM RANDOM URINEon 2021 Sodium (U) [Moles/Vol] 74 mmol/L Normal 30-90 [facility] Comment on above: Performed By: #### N AU #### [facility] [address] [place] [address] Dr. Alejandrina Feng TSHon 01-31-2022 TSH 0.791 uIU/mL Normal 0.358-3.740 [facility] Comment on above: Performed By: #### P THINT #### [facility] [address] [place] [address] Dr. Alejandrina Feng TSH RANGE SEE BELOW Normal [facility] Comment on above: Result Comment: <0.3 4 UIU/ml HYPERTHYROID 0.34-5.60 UIU/ml EUTHYROID >5.60 UIU/ml HYPOTHYROID Performed By: #### P THINT #### [facility] [address] [place] [address] Dr. Alejandrina Feng Vital Signs Date Time Vital Sign Value Performing Clinician Facility 04-15-2024 14:16-0400 Body height 162.56 cm [facility] 04-15-2024 14:16-0400 Body mass index (BMI) [Ratio] 25.9 kg/m2 [facility] 04-15-2024 14:16-0400 Body weight 68.71 kg [facility] 04-15-2024 14:16-0400 Diastolic blood pressure 83 mm[Hg] [facility] 04-15-2024 14:16-0400 Heart rate 80 /min [facility] 04-15-2024 14:16-0400 Respiratory rate 12 /min [facility] 04-15-2024 14:16-0400 Systolic blood pressure 123 mm[Hg] [facility] 02-20-2024 14:50-0400 Blood Pressure Location Kelsie Orzech [facility] 02-20-2024 14:50-0400 Body temperature 98.06 [degF] Kelsie Orzech [facility] 02-20-2024 14:50-0400 Diastolic blood pressure 84 mm[Hg] Kelsie Orzech [facility] 02-20-2024 14:50-0400 Heart rate 83 /min Kelsie Orzech [facility] 02-20-2024 14:50-0400 Respiratory rate 16 /min Kelsie Orzech [facility] 02-20-2024 14:50-0400 Systolic blood pressure 123 mm[Hg] Kelsie Orzech [facility] 02-20-2024 12:02-0400 Body height 162.56 cm [facility] 02-20-2024 12:02-0400 Body mass index (BMI) [Ratio] 25.8 kg/m2 [facility] 02-20-2024 12:02-0400 Body weight 68.26 kg [facility] 02-20-2024 12:02-0400 Diastolic blood pressure 82 mm[Hg] [facility] 02-20-2024 12:02-0400 Heart rate 83 /min [facility] 02-20-2024 12:02-0400 Respiratory rate 12 /min [facility] 02-20-2024 12:02-0400 Systolic blood pressure 130 mm[Hg] [facility] 12-27-2023 09:02-0400 Body height 162.56 cm [facility] 12-27-2023 09:02-0400 Body mass index (BMI) [Ratio] 26.2 kg/m2 [facility] 12-27-2023 09:02-0400 Body weight 69.11 kg [facility] 12-27-2023 09:02-0400 Diastolic blood pressure 84 mm[Hg] [facility] 12-27-2023 09:02-0400 Heart rate 76 /min [facility] 12-27-2023 09:02-0400 Respiratory rate 12 /min [facility] 12-27-2023 09:02-0400 Systolic blood pressure 127 mm[Hg] [facility] 12-19-2023 08:57-0400 Body height 162.56 cm [facility] 12-19-2023 08:57-0400 Body mass index (BMI) [Ratio] 25.9 kg/m2 [facility] 12-19-2023 08:57-0400 Body weight 68.54 kg [facility] 12-19-2023 08:57-0400 Diastolic blood pressure 85 mm[Hg] [facility] 12-19-2023 08:57-0400 Heart rate 98 /min [facility] 12-19-2023 08:57-0400 Respiratory rate 12 /min [facility] 12-19-2023 08:57-0400 Systolic blood pressure 124 mm[Hg] [facility] 10-09-2023 10:00-0500 Body height 162.56 cm Segun Ball Other [facility] 10-09-2023 10:00-0500 Body mass index (BMI) [Ratio] 25.81 kg/m2 Segun Ball Other [facility] [employer] Other 10-09-2023 10:00-0500 Body weight 68.22 kg Segun Ball Other [facility] 10-09-2023 10:00-0500 Diastolic blood pressure 83 mm[Hg] Segun Ball Other [facility] 10-09-2023 10:00-0500 Respiratory rate 12 /min Segun Ball Other [facility] [employer] Other 10-09-2023 10:00-0500 Systolic blood pressure 126 mm[Hg] Segun Ball Other [facility] 09-19-2023 13:45-0500 Body height 162.56 cm Segun Ball Other [facility] [employer] Other 09-19-2023 13:45-0500 Body mass index (BMI) [Ratio] 26.02 kg/m2 Segun Ball Other [employer] Other 09-19-2023 13:45-0500 Body weight 68.77 kg Segun Ball Other [employer] Other 09-19-2023 13:45-0500 Diastolic blood pressure 79 mm[Hg] Segun Ball Other [employer] Other 09-19-2023 13:45-0500 Respiratory rate 12 /min Segun Ball Other [employer] Other 09-19-2023 13:45-0500 Systolic blood pressure 123 mm[Hg] Segun Ball Other [employer] Other 04-10-2023 11:00-0400 Body height 162.56 cm Segun Ball Other [employer] Other 04-10-2023 11:00-0400 Body mass index (BMI) [Ratio] 26.29 kg/m2 Segun Ball Other [employer] Other 04-10-2023 11:00-0400 Body weight 69.49 kg Segun Ball Other [employer] Other 04-10-2023 11:00-0400 Diastolic blood pressure 74 mm[Hg] Segun Ball Other [employer] Other 04-10-2023 11:00-0400 Respiratory rate 12 /min Segun Ball Other [employer] Other 04-10-2023 11:00-0400 Systolic blood pressure 108 mm[Hg] Segun Ball Other [employer] Other 01-25-2023 12:30-0400 Body height 162.56 cm Segun Ball Other [employer] Other 01-25-2023 12:30-0400 Body mass index (BMI) [Ratio] 26.05 kg/m2 Segun Ball Other [employer] Other 01-25-2023 12:30-0400 Body weight 68.86 kg Sgeun Ball Other [employer] Other 01-25-2023 12:30-0400 Diastolic blood pressure 81 mm[Hg] Segun Ball Other [employer] Other 01-25-2023 12:30-0400 Respiratory rate 12 /min Segun Ball Other [employer] Other 01-25-2023 12:30-0400 Systolic blood pressure 119 mm[Hg] Segun Ball Other [employer] Other 12-06-2022 11:00-0400 Body height 162.56 cm Segun Ball Other [employer] Other 12-06-2022 11:00-0400 Body mass index (BMI) [Ratio] 25.98 kg/m2 Segun Ball Other [employer] Other 12-06-2022 11:00-0400 Body weight 68.68 kg Segun Ball Other [employer] Other 12-06-2022 11:00-0400 Diastolic blood pressure 74 mm[Hg] Segun Ball Other [employer] Other 12-06-2022 11:00-0400 Respiratory rate 16 /min Segun Ball Other [employer] Other 12-06-2022 11:00-0400 Systolic blood pressure 117 mm[Hg] Segun Ball Other [employer] Other 07-13-2022 13:16-0400 Blood Pressure Location NOE SVITLANA [facility] 07-13-2022 13:16-0400 Diastolic blood pressure 88 mm[Hg] NOE SVITLANA [facility] 07-13-2022 13:16-0400 Heart rate 79 /min NOE SVITLANA [facility] 07-13-2022 13:16-0400 Respiratory rate 16 /min NOE SVITLANA [facility] 07-13-2022 13:16-0400 Systolic blood pressure 138 mm[Hg] NOE SHANE [facility] Encounters Encounter Date Encounter Type Care Provider Facility Start: 02-24-2025 ambulatory Enrique Boss ty:[facility] Start: 04-15-2024 End: 04-15-2024 ambulatory [facility] Work Phone: Start: 04-15-2024 End: 04-15-2024 Patient encounter procedure [facility] Work Phone: Start: 02-20-2024 End: 02-20-2024 Lab Drop off Kelsie X Orzech [facility] Start: 02-20-2024 End: 02-20-2024 ambulatory Kelsie X Orzech [place] Start: 02-20-2024 End: 02-20-2024 Patient encounter procedure Kelsie X Orzech [facility] Start: 02-20-2024 End: 02-20-2024 ambulatory [facility] Work Phone: Start: 02-20-2024 End: 02-20-2024 Patient encounter procedure [facility] Work Phone: Start: 02-08-2024 Non-patient / Non-visit [facility] Work Phone: Start: 12-27-2023 End: 12-27-2023 ambulatory [facility] Work Phone: Start: 12-27-2023 End: 12-27-2023 Patient encounter procedure [facility] Work Phone: Start: 12-19-2023 End: 12-19-2023 ambulatory [facility] Work Phone: Start: 12-19-2023 End: 12-19-2023 Patient encounter procedure [facility] Work Phone: Start: 11-29-2023 Non-patient / Non-visit [facility] [employer] Work Phone: Start: 10-10-2023 End: 10-10-2023 ambulatory Segun Ball Other [employer] Other Start: 10-10-2023 Telephone encounter Segun Ball [facility] Start: 10-09-2023 End: 10-09-2023 ambulatory Segun Ball Other [employer] Other Start: 10-09-2023 Office outpatient vi sit 25 minutes Segun Ball [facility] Start: 10-09-2023 End: 10-09-2023 Patient encounter procedure [facility] Work Phone: Start: 09-22-2023 End: 09-22-2023 ambulatory Segun Ball Other [employer] Other Start: 09-22-2023 Telephone encounter Segun Ball [facility] Start: 09-19-2023 End: 09-19-2023 ambulatory Segun Ball Other [employer] Other Start: 09-19-2023 Office outpatient vi sit 15 minutes Segun Ball [facility] Start: 09-13-2023 Telephone encounter Segun Ball [facility] Start: 09-13-2023 End: 09-13-2023 ambulatory ELOINA HERNANDEZCOOdilon [facility] [employer] Other Start: 07-19-2023 End: 07-19-2023 ambulatory Segun Ball Other [employer] Other Start: 07-19-2023 Office outpatient vi sit 15 minutes Segun Ball [facility] Start: 06-20-2023 End: 06-20-2023 ambulatory Segun Ball Other [employer] Other Start: 06-20-2023 Telephone encounter Segun Kingsley [facility] Start: 04-13-2023 End: 04-13-2023 ambulatory Segun Kingsley Other [employer] Other Start: 04-13-2023 Telephone encounter [address]un [facility] Start: 04-10-2023 End: 04-10-2023 ambulatory Segun Kingsley Other [employer] Other Start: 04-10-2023 Encounter for genera l adult medical examination without abnormal findings Segun Kingsley [facility] Start: 04-10-2023 Periodic preventive med est patient 65yrs& older Segun Kingsley [facility] Start: 01-25-2023 End: 01-25-2023 ambulatory Segun Kingsley Other [employer] Other Start: 01-25-2023 Office outpatient vi sit 15 minutes Segun Kingsley [facility] Start: 01-20-2023 End: 01-21-[address] ENRIQUE VÁSQUEZ . Facility:[facility] Start: 12-06-2022 End: 12-06-2022 ambulatory Segun Sancho Other [employer] Other Start: 12-06-2022 Office outpatient vi sit 25 minutes Segun Sancho [facility] Start: 10-27-2022 End: 10-28-[address] ENRIQUE VÁSQUEZ . Facility:[facility] Start: 08-26-2022 End: 08-27-[address] ELOINA DUMONT Facility:[facility] Start: 07-13-2022 End: 07-14-2022 ambulatory Jackson Bach Facility:[facility] Start: 07-13-2022 End: 07-13-2022 Patient encounter procedure NOE SHANE [facility] Start: 07-06-2022 End: 07-07-[address] SEGUN KINGSLEY Facility:[facility] Start: 06-20-2022 End: 06-21-[address] SEGUN KINGSLEY Facility:[facility] Start: 04-01-2022 Adult health examination Segun Kingsley Other [facility] [employer] Other Start: 03-11-2022 End: 03-11-[address] SEGUN KINGSLEY Facility:[facility] Start: 03-09-2022 End: 03-10-[address] ENRIQUE VÁSQUEZ . Facility:[facility] Start: 03-02-2022 End: 03-02-[address] SEGUN KINGSLEY Facility:[facility] Start: 02-22-2022 End: 02-22-[address] SEGUN KINGSLEY Facility:[facility] Start: 01-31-2022 End: 02-01-[address] SEGUN KINGSLEY Facility:[facility] Procedures Date Procedure Procedure Detail Performing Clinician Start: 02-08-2024 Radiography of rzkrvu-karwnt-pvongqn Kelsie Oredie Start: 06-03-2021 Extracorporeal shock wave [...] Author MG Breast - bilatera l Screening [facility] Patient Education Low back pain in adults [facility] Work Phone: XR Foot - right GE 3 Views F [facility] Immunizations Immunization Date Immunization Notes Care Provider Danyelle kumari 06-22-2022 influenza virus vaccine, split virus (incl. purified surface antigen) Segun Kingsley Other [employer] Other 06-22-2022 influenza virus vaccine, unspecified formulation [facility] 06-22-2022 influenza, high dose seasonal, preservative-free Segun Kingsley Other [employer] Other 04-01-2022 pneumococcal conjuga te vaccine, 13 valent NOE SVITLANA [facility] 09-01-2021 COVID-19 Vaccine Pfi zer - Documentation Purposes Only Segun Kingsley Other [facility] 09-01-2021 SARS-CoV-2 (COVID-19 ) Ad26 vaccine, recombinant NOE SHANE [facility] 07-19-2021 influenza virus vaccine, split virus (incl. purified surface antigen) Segun Kingsley Other [employer] Other 07-19-2021 influenza virus vaccine, unspecified formulation [facility] 05-26-2021 influenza virus vaccine, unspecified formulation NOE SVITLANA [facility] 01-05-2021 diphtheria, tetanus toxoids and acellular pertussis vaccine, unspecified formulation Segun Kingsley Other [facility] 01-05-2021 tetanus toxoid, redu agustin diphtheria toxoid, and acellular pertussis vaccine, adsorbed NOE SVITLANA [facility] 12-25-2020 COVID-19, mRNA, LNP- S, PF, 30 mcg/0.3 mL dose NOE SVITLANA [facility] Comment on above: Reason for Medicatio n: Prophylaxis 12-04-2020 COVID-19, mRNA, LNP- S, PF, 30 mcg/0.3 mL dose NOE SHANE [facility] Comment on above: Reason for Medicatio n: Prophylaxis 08-14-2020 pneumococcal polysaccharide vaccine, 23 valent Segun Kingsley Other [facility] 08-11-2020 influenza virus vaccine, split virus (incl. purified surface antigen) Segun Kingsley Other [employer] Other 08-11-2020 influenza virus vaccine, unspecified formulation [facility] 08-10-2020 influenza virus vaccine, unspecified formulation NOE SHANE [facility] 07-25-2018 influenza virus vaccine, split virus (incl. purified surface antigen) Segun Kingsley Other [employer] Other 07-25-2018 influenza virus vaccine, unspecified formulation NOE SHANE [facility] 10-12-2017 influenza virus vaccine, split virus (incl. purified surface antigen) Segun Kingsley Other [employer] Other 10-12-2017 influenza virus vaccine, unspecified formulation [facility] Payers Date Payer Category Payer Medicare [id number] 1960 Unknown [id number] 2. [id number] 1954 Unknown [id number] 2.16.84 0.1.066350.3.579.2.593 1954 Unknown [id number] 2.16.84 0.1.530971.3.579.2.593 1954 Unknown [id number] 2.16.84 0.1.361818.3.579.2.593 1954 Unknown [id number] 2.16.84 0.1.604834.3.579.2.593 1954 Unknown [id number] 2.16.84 0.1.649810.3.579.2.593 1954 Unknown [id number] 2.16.84 0.1.760253.3.579.2.593 1954 Unknown [id number] 2.16.84 0.1.791464.3.579.2.593 1954 Unknown [id number] 2.16.84 0.1.328695.3.579.2.593 1954 Unknown [id number] 2.16.84 0.1.805055.3.579.2.593 1954 Unknown [id number] 2.16.84 0.1.566155.3.579.2.593 1954 Unknown [id number] 2.16.84 0.1.698611.3.579.2.593 1954 Unknown [id number] 2.16.840 .1.083885.3.579.2.1259 1954 Unknown [id number] 2.16.8 40.1.423000.3.579.2.727 1954 Unknown [id number] 2.16.8 40.1.732937.3.579.2.727 1954 Unknown [id number] 2.16.8 40.1.712704.3.579.2.727 Social History Date Type Detail Facility Start: 07-13-2022 End: 12-18-2023 Tobacco smoking status Never smoked tobacco (finding) [facility] Tobacco smoking status Never [facility] Sex Assigned At Female [facility] Start: 1955 Sex Assigned At Female [facility] Functional Status Date Assessment Result Facility 02-20-2024 Functional Status N/A [facility] 07-13-2022 Functional Status N/A [facility] Clinical Notes 07-13-2022 to 02-20-2024 Note Date [...] include: ?8 oz (237 mL) of milk, lnajlpf-qhawgtepiqqk-ciefa milk, and calcium-fortifiedfruit juice. Calcium-fortified means that [...] ?Spinach (cooked), rhubarb, beets, sweet potatoes, and [place] chard. ?Peanuts. ?Potato chips, kyrgyz fries, and baked potatoes with skin on. ?Nuts and nut products. ?Chocolate. If you regularly take a diuretic medicine, make sure to eat at least 1 or 2 servings of fruits or vegetables that are high in potassium each day. These include: ?Avocado. ?Banana. ?[place], prune, carrot, or tomato juice. ?Baked potato. [...] magnesium, fish oil, or vitamin B6. Take ixql-snq-zdugybi and prescription medicines only as told by [...] Casseroles. Pizza. Lasagna. Frozen meals. Potato chips. Prydeinig fries. The items listed above may not [...] provider. Document Revised: 12/22/2022 Document Reviewed: 12/22/2022 [employer] Patient Education 2022 [employer]. 02/20/2024 16:06:04 Kidney Stones, Bkes-oi-Atod Kidney Stones Kidney stones are rock-like masses [...] Follow these instructions at home: Medicines Take qjju-oxe-pgomtcc and prescription medicines only as told by [...] provider. Document Revised: 05/16/2022 Document Reviewed: 05/16/2022 [employer] Patient Education 2022 [employer]. [facility] 10-10-2023 Evaluation note Encounter Date Diagnosis Assessment Notes Sep, COVID- 19 (ICD-1 0 - U07.1) [facility] Other 01-15-2024 Evaluation note* Encounter Date Diagnosis [...] interruption. Instructed to avoid d/c meds abruptly [facility] Other 12-26-2023 Evaluation note* Encounter Date Diagnosis [...] needed - XR to r/o compression fx [facility] Other 12-26-2023 Evaluation note* Encounter Date Diagnosis [...] needed - XR to r/o compression fx [facility] Other 12-20-2023 Evaluation note* Encounter Date Diagnosis Assessment Notes Treatment Notes Treatment Clinical Notes Aug, Nontoxic single thyroid nodule (ICD-10 - E04.1) Serial US w/ stable size and appearance. Referred to ENT w/ no further scans recommended. [employer] Other 10-25-2023 Evaluation note* Encounter Date Diagnosis [...] Amlodipine to 5mg qd while taking Paxlovid [employer] Other 07-17-2023 Evaluation note* Encounter Date Diagnosis [...] and yearly mammogram - due in Oct [employer] Other 05-03-2023 Evaluation note* Encounter Date Diagnosis [...] pneumonia Due for COVID booster and Shingrix [employer] Other 03-14-2023 Evaluation note* Encounter Date Diagnosis [...] or drinking prior to bedtime. Continue PPI [employer] Other [id number] Hospital Discharge instructions Patient Education 07/13/2022 13:30:11 Kidney Stones, Defz-zq-Tipb Kidney Stones Kidney stones are rock-like masses [...] Follow these instructions at home: Medicines Take gysz-jhk-owoqryj and prescription medicines only as told by [...] 02/27/2009 Document Revised: 01/28/2020 Document Reviewed: 01/28/2020 [employer] Patient Education 2019 [employer]. Follow Up Care 10/18/2021 12:21:40 With:SVITLANA IBARRA, NOE Anderson, URL Address: [address] [place] [address] [phone] When: Unknown [facility] 10-19-2022 Evaluation + Plan note Future Scheduled Tests Laboratory* Basic Metabolic Panel 07/13/22 [facility] evaluation + Plan note Future Appointments Appointment Date:02/24/2025 09:15:00 AM Scheduled Provider:Enrique VÁSQUEZ MD Location:[facility] Appointment Type:URO Office Visit [facility] evaluation + Plan note Future Appointments Appointment Date:02/24/2025 09:15:00 AM Scheduled Provider:Enrique VÁSQUEZ MD Location:[facility] Appointment Type:URO Office Visit Diagnostic Tests Pending * [facility] [employer] Other Evaluation note* Diagnosis Onset Date Resolution Status Plantar fasciitis of right foot noneactive Right foot pain noneactive [facility] Work Phone: Evaluation note* Diagnosis Onset Date Resolution Status Plantar fasciitis of right foot noneactive Right foot pain noneactive Essential (primary) hypertension acute Osteoporosis acute Avulsion fracture of metatarsal bone of right foot noneactive [facility] Work Phone: Evaluation note* Diagnosis Onset Date Resolution Status Plantar fasciitis of right foot noneactive Right foot pain noneactive Osteoporosis acute Avulsion fracture of metatarsal bone of right foot noneactive [facility] Work Phone: Evaluation note* Diagnosis Onset Date Resolution Status IBS (irritable bowel syndrome) acute Low back pain acute Elevated cholesterol acute Essential (primary) hypertension acute Gastroesophageal reflux dise ase with esophagitis without hemorrhage acute Lumbar spondylosis acute Osteoporosis acute Primary insomnia acute Recurrent major depressive d isorder, in full remission acute Screening mammogram for breast cancer noneactive [facility] Work Phone: History general Narrative - Reported* [...] GENEVA/BSO 2009 Hospitalization History SEE SURGICAL HX [facility] [employer] Other [facility] - [facility] course Narrative No data available for this section [facility] Hospital Discharge instructions No data available for this section [facility] No data available for this section [facility] reason for referral (narrative)* Reason Referral for treatme nt of chronic low back pain Diagnosis 1 Acute bilateral low back pain without sciatica (M54.50) Diagnosis 2 Lumbar spondylosis ( M47.816) Referral Organization [facility] Referring Provider First Name Segun Referring Provider Last Name Sancho Referring Provider Specialty Internal Me dicine Referred Organization [facility] Referred Address [address], [place],[address] Referred Provider Specialty Pain Medicin e Referral [...] for injections. Clinical Notes Include XR results [employer] Other Summary Purpose Family History Relationship Condition [...] content) 3 month Follow upPossible Sp ider [id number] COVID +No Informationback painback painXR results6 monthCOVID + INFORMATION SOURCE (unrecogn ized section and content) DATE CREATED AUTHOR 01/27/2023 [facility] DATE CREATED AUTHOR AUTHOR'S ORGANIZ ATION 09/14/2023 [facility] EPIC DATE CREATED AUTHOR AUTHOR'S ORGANIZ ATION 02/23/2024 [facility] DATE CREATED AUTHOR AUTHOR'S ORGANIZ ATION 02/28/2024 [facility] Goals (unrecognized section and content) Goals may [...] BE BASED ON THE PRIMARY CLINICAL RECORDS. [facility]. provides no warranty or guarantee of the accuracy or completeness of information in this document.
[2024-05-06 08:20] LABS: Basophils Absolute Auto 0.1 10^3/uL (0.0-0.1); Basophils Percent Auto 0.5 % (0.2-2.0); Eosinophils Absolute Auto 0.4 10^3/uL (0.0-0.7); Hematocrit 41.1 % (36.0-48.0); Hemoglobin 13.2 g/dL (12.0-16.0); Immature Granulocytes Abs Auto 0.09 10^3/uL (0.00-0.03); Immature Granulocytes Pct Auto 0.7 % (0.0-0.5); Lymphocytes Absolute Auto 2.7 10^3/uL (1.2-3.8); Lymphocytes Percent Auto 20.6 % (20.5-60.0); Mean Corpuscular HGB Conc 32.1 g/dL (29.9-35.2); Mean Corpuscular Hemoglobin 27.9 pg (26.7-34.0); Mean Corpuscular Volume 86.9 fL (81.0-99.0); Mean Platelet Volume 8.5 fL (9.5-13.5); Monocytes Absolute Auto 0.7 10^3/uL (0.3-0.8); Neutrophils Absolute Auto 9.3 10^3/uL (1.4-6.5); Neutrophils Percent Auto 70.2 % (43.0-75.0); Platelet Count 419 10^3/uL (150-450); Red Blood Count 4.73 10^6/uL (4.20-5.40); White Blood Count 13.2 10^3/uL (4.0-11.0)
[2024-05-06 08:42] LABS: Estimated Average Glucose 117 mg/dL; Glycohemoglobin A1C 5.7 % (4.5-6.2)
== END 2024-05-06 08:00 | disposition home or self-care (01) ==
PROVIDERS: PCP Internal Medicine; Visit Provider Internal Medicine
DX: D72.829 Elevated white blood cell count, unspecified (principal); R73.01 Impaired fasting glucose
CPT/HCPCS: 36415; 83036; 85025

== ENCOUNTER 2024-09-24 12:03 | Outpatient (OUT) | payer OTHER, SELFPAY ==
--- OUTSIDE RECORDS SUMMARY | 2024-09-24 12:16 | XMS_ITS | CCD ---
Author Organization [facility] CliniSyil Care Team Providers Care Medical Billing And Coding Specialist Name Role Phone SEGUN KINGSLEY Primary Care Physician [phone] Segun Kingsley Unavailable VÁSQUEZ ., DR RENEE [...] Perez Attending Unavailable Kelsie Perez Admitting Unavailable Segun Kingsley Attending Unavailable Segun Kingsley Admitting Unavailable Allergies Allergy Classification Reported Allergen(s) Allergy Type Date of Onset Reaction(s) Facility (2 sources) patient allergy list reviewed by nurse or physicia Propensity to adverse reactions Comment:Done [facility] Other (2 sources) No Known Medication Allergies; Translations: [No Known Medication Allergies] Propensity to adverse reactions (disorder) [facility] Repository Medications Current Medications Medication Drug Class(es) Dates Sig (Normalized) Sig (Original) acetaminophen 500 mg oral tablet (3 sources) Start: 05-05-2021 take 500 mg by mouth twice daily Tylenol 500 mg, Oral, BID Start Date: 05/05/21 Status: Ordered [id number] 60 actuat albuterol 0.09 mg/actuat metered dose [...] Channel Emmanuel Start: 12-18-2023 End: 04-15-2024 take 1 tablet by mouth once daily Amlodipine 10 mg tablet Active 10 MG PO Daily April 15, 2024 1:43pm Start: 05-05-2021 take 1 tablet by levon th once daily amLODIPine 5 mg Tab 5 mg = 1 tab(s), Oral, Daily Start Date: 05/05/21 Status: Ordered take 1 tablet by levon th once daily atorvastatin 40 mg oral tablet (20 sources) HMG-CoA Reductase Inhibitor Start: 04-15-2024 take 1 tablet by mouth once daily Atorvastatin 40 mg tablet Active 40 MG PO Daily April 15, 2024 1:43pm Start: 11-29-2023 End: 04-15-2024 take 1 tablet by mouth once daily in the evening Atorvastatin 40 mg tablet Discontinued 0 .ROUTE .COMPLEX November 29, 2023 9:55pm April 15, 2024 1:47pm TAKE ONE TABLET BY MOUTH ONCE DAILY IN THE EVENING Start: 11-29-2023 End: 04-15-2024 take 1 tablet [...] THE EVENING Start: 05-05-2021 End: 11-29-2023 take 1 tablet by mouth once daily in the evening Atorvastatin 40 mg tablet Discontinued 40 MG PO Every evening November 29, 2023 12:00am November 29, 2023 9:55pm azelastine hydrochloride 0.137 mg/actuat metered dose nasal spray (20 sources) Histamine-1 Receptor Antagonist Start: 12-18-2023 Azelastine 137 mcg (0.1 %) aerosol,spray Active 1 SPRAY INTRANASAL Twice daily December 17, 2023 11:00pm take 1 puff(s) nasal route twice daily [...] sources) Serotonin Reuptake Inhibitor Start: 04-15-2024 take 1 capsule by mouth once daily Fluoxetine 40 mg capsule Active 40 MG PO Daily April 15, 2024 1:44pm Start: 03-29-2024 End: 04-15-2024 take 1 capsule by mouth once daily Fluoxetine 40 mg capsule Discontinued 0 .ROUTE .COMPLEX March 29, 2024 7:44am April 15, 2024 1:47pm TAKE ONE CAPSULE BY MOUTH ONCE DAILY Start: 05-05-2021 End: 03-29-2024 take 1 capsule by mouth once daily Fluoxetine 40 mg capsule Discontinued 40 MG PO Daily December 17, 2023 11:00pm March 29, 2024 7:44am fluticasone propionate 0.05 mg/actuat metered dose nasal spray (12 sources) Corticosteroid Start: 10-26-2019 take 1 spray(s) nasa l route once daily Start: 10-26-2019 take 1 spray(s) nasa l route once daily Fluticasone Propionate 50 MCG/ACT 1 spray in each nostril Nasally Once a day for 21 days Oct, Not-Taking Start: 10-26-2019 hydroCHLOROthiazide 25 mg oral tablet (20 sources) Thiazide Diuretic Start: 04-15-2024 Hydrochlorothiazide 25 mg tablet Active 12.5 MG PO Daily April 15, 2024 1:42pm Start: 04-15-2024 take 12.5 mg by mout h once daily Hydrochlorothiazide Active 12.5 MG PO Daily April 15, 2024 2:42pm Start: 06-08-2022 End: 04-15-2024 take 1 tablet by mouth once daily Hydrochlorothiazide 25 mg tablet Discontinued 25 MG PO Daily December 17, 2023 11:00pm April 15, 2024 1:47pm Lisinopril (12 sources) Angiotensin Converting Enzyme Inhibitor Lisinopril Not-T aking/PRN Lisinopril Not-T aking methylPREDNISolone 4 mg oral tablet (12 sources) Corticosteroid Start: 10-26-2019 Start: 10-26-2019 paxlovid (300/100) 20 x 150 mg & [...] packet daily Active Potassium Bicarb And Chloride (7 sources) Start: 12-18-2023 Potassium Bica rb And Chloride Active 1 PACKET PO Daily December 18, 2023 12:00am Potassium Bicarb And Chloride 20 mEq packet (1 source) Start: 12-18-2023 take 20 mEq by mouth once daily Potassium Bicarb And Chloride 20 mEq packet Active 1 PACKET PO Daily December 17, 2023 11:00pm predniSONE 20 mg oral tablet (2 sources) Start: 07-26-2024 Prednisone 20 mg tablet Active 20 MG PO .COMPLEX 15 July 25, 2024 11:00pm 20mg bid w/ food x 5 days then qd w/ food x 5 days tiZANidine (12 sources) Central alpha-2 Adrenergic Agonist tiZANidine HCl N ot-Taking/PRN tiZANidine HCl N ot-Taking traMADol (12 sources) Opioid Agonist traMADol HCl Not -Taking/PRN traMADol HCl Not -Taking Triamcinolone (20 sources) Corticosteroid Start: 07-26-2024 Triamcinolone Acetonide 0.5 % ointment Active 1 APPLIC TOPICAL Twice daily 45 July 25, 2024 11:00pm Start: 07-26-2024 Triamcinolone Acetonide Active 1 APPLIC TOPICAL Twice daily 45 14 July 26, 2024 12:00am Start: 12-18-2023 Triamcinolone Acetonide 0.025 % cream Active 1 APPLIC TOPICAL Twice daily as needed December 17, 2023 11:00pm Triamcinolone Ac etonide 0.025 % 1 application [...] Drug Class(es) Dates Sig (Normalized) Sig (Original) omeprazole 40 mg delayed release oral capsule (20 sources) Proton Pump Inhibitor Start: 10-18-2021 End: 04-15-2024 take 1 capsule by mouth once daily at breakfast Omeprazole 40 mg capsule,delayed release(DR/EC) Discontinued 40 MG PO Daily December 17, 2023 11:00pm April 15, 2024 1:47pm ON AN EMPTY STOMACH, FOLLOWED IN 30 MINS BY BREAKFAST potassium bicarbonate 25 meq effervescent oral tablet (3 sources) Start: 04-10-2023 take 1 tablet by mouth twice daily Klor-Con/EF 25 mEq oral tablet, effervescent 25 mEq = 1 tab(s), Oral, BID, # 60 tab(s), Refills(s) 11, Pharmacy: [facility]/pharmacy #[id number], 163, cm, 02/13/23 14:27:00 EDT, Height/Length Dosing, 70, kg, 02/13/23 14:27:00 EDT, Weight Dosing Start Date: 04/10/23 Status: Ordered Start: 10-18-2021 take 1 tablet by levon twice daily Effer-K 25 mEq oral tablet, effervescent 25 mEq = 1 tab(s), Oral, BID, # 60 tab(s), Refills(s) 8, Pharmacy: [facility] [id number], 163, cm, 10/18/21 11:50:00 EST, Height/Length Dosing, 70, kg, 10/18/21 11:50:00 EST, Weight Dosing Start Date: 10/18/21 Status: Ordered temazepam 15 mg oral capsule (20 sources) Benzodiazepine Start: 05-05-2021 End: 04-15-2024 take 1 capsule by mouth once daily at bedtime as needed Temazepam 15 mg capsule Discontinued 15 MG PO Daily at bedtime as needed for insomnia December 17, 2023 11:00pm April 15, 2024 1:47pm Problems Active Problems Problem Classification Problem Date Documented Da te Episodic/Chronic Abdominal pain (20 sources) Flank pain; Translations: [Epigastric pain] Onset: 03-04-2015 05-05-2021 Episodic Acute bronchitis (14 sources) Acute bronchitis; Translations: [Acute bronchitis, unspecified] Onset: 01-27-2014 Episodic Allergic reactions (9 sources) Contact dermatitis; Translations: [Contact dermatitis and other eczema, due to unspecified cause] Onset: 07-15-2015 07-26-2024 Episodic Anxiety disorders (20 sources) Generalized anxiety disorder; Translations: [Generalized anxiety disorder] Onset: 02-28-2022 Chronic Calculus of urinary tract (20 sources) Kidney stone; Translations: [Calculus of kidney] Onset: 07-13-2022 Episodic Cardiac dysrhythmias (13 sources) Tachycardia; Translations: [Tachycardia, unspecified] Onset: 01-31-2022 Episodic Diabetes mellitus without complication (3 sources) Impaired fasting glycemia; Translations: [Impaired fasting glucose] 05-02-2024 Episodic Diseases of white blood cells (3 sources) Leukocytosis; Translations: [Elevated white blood cell count, unspecified] 05-02-2024 Chronic Disorders of lipid metabolism (20 sources) Hyperlipidemia; [...] Onset: 01-27-2014 Episodic Miscellaneous mental health disorders (9 sources) Globus sensation; 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] 04-15-2024 Chronic Mood disorders (20 sources) Single episode of major depression in full remission; Translations: [Major depressive disorder, single episode, in full remission] Onset: 09-25-1959 Chronic Osteoarthritis (3 sources) Arthritis 05-05-2021 Chronic Osteoporosis (11 sources) Osteoporosis; Translations: [Age-related osteoporosis without current [...] due to ureteral obstruction 05-05-2021 Episodic Other diseases of veins and lymphatics (1 source) Venous insufficiency of leg; Translations: [Venous insufficiency (chronic) (peripheral)] 07-26-2024 Episodic Other diseases of veins and lymphatics (1 source) Venous insufficiency (chronic) (peripheral); Translations: [Venous (peripheral) insufficiency, unspecified] 07-26-2024 Episodic Other ear and sense organ disorders [...] diarrhea] Onset: 09-10-2018 Chronic Other gastrointestinal disorders (11 sources) Irritable bowel syndrome; Translations: [Irritable bowel syndrome] 02-20-2024 Chronic Other gastrointestinal disorders (2 sources) Irritable bowel syndrome without diarrhea; Translations: [Irritable [...] Onset: 01-30-2015 Chronic Other upper respiratory disease (15 sources) Allergic rhinitis due to pollen; Translations: [...] Problem Classification Problem Date Documented Date Episodic/Chronic Bacterial infection; unspecified site (14 sources) Methicillin [...] 6 Episodic Other aftercare (1 source) Other half-way (current) drug therapy; Translations: [OTH SNF CURRENT DRUG THERAPY] Onset: 2 Episodic Other [...] Test Name Value Interpretation Reference Range Facility Basophils Auto (Bld) [#/Vol] on 05-06-2024 Basophils (Bld) [#/Vol] 0.1 10 3/uL 0.0-0.1 [facility] Basophils/100 WBC Auto (Bld) on 05-06-2024 Basophils/100 WBC (Bld) 0.5 % 0.2-2.0 [facility] Eosinophils/100 WBC Auto (Bl d)on 05-06-2024 Eosinophils/100 WBC (Bld) 3.0 % 0.9-7.0 [facility] Erythrocyte distribution wid th Auto (RBC) [Ratio]on 05-06-2024 Erythrocyte distribution width (RBC) [Ratio] 15.0 % 11.0-15.0 [facility] Glucose mean value [Mass/vol ume] in Blood Estimated from glycated hemoglobinon 05-06-2024 Average glucose Estimated from glycated hemoglobin (Bld) [Mass/Vol] 117 mg/dL [facility] Hematocrit Auto (Bld) [Volum e fraction]on 05-06-2024 Hematocrit (Bld) [Volume fraction] 41.1 % 36.0-48.0 [facility] Hemoglobin [Mass/volume] in Bloodon 05-06-2024 Hemoglobin (Bld) [Mass/Vol] 13.2 g/dL 12.0-16.0 [facility] Say 05-06-2024 L Specimen: [id number] Received: 05/06/24 Status: MARY Rodgers Num: [id number] Spec Type: Impression Subm Dr: Segun Kingsley DO Tissues: PATHPER Procedures: PATHREVIEW Age/ Patient Sex Location Account Attending Physician Zaria Corona 68/F LABELL [id number] Segun Kingsley DO SPEC NUM: [id number] RECD: 05/06/24 STATUS: MARY RODGERS NUM: [id number] KYRIE: 05/06/[address]: Segun Kingsley DO ENTERED: 05/06/[address] [facility] [address]: Milagro Mcmahan SPEC TYPE: Impression DEPT: GARRETT Myles ENTERED BY: [id number] RECV BY: [id number] ORDERED: PATHREVIEW ORDERED: PATHREVIEW Pathologist Review Abnormal CBC for peripheral blood smear review: -Mild leukocytosis with mild neutrophilia -Rare precursor granulocytes including rare bands -No blast or morphological abnormality of the leukocyte population except occasional reactive lymphocytes, including rare large granular lymphocytes Comment: -The smear review correspond to the readings of the hematologic analyzer. The cause of mild neutrophilia is usually due to tissue injury, systemic inflammation, or underlying infection requiring clinical correlations CPT:84396 Specimen: [id number] Received: 05/06/24-1320 Status: MARY Rodgers Num: [id number] Spec Type: Impression Subm Dr: Segun Kingsley DO Tissues: PATHPER Procedures: PATHREVIEW Patient: Zaria Corona [id number] (Continued) Signed (signature on file) Qasim Feng MD 05/07/24 1023 Normal [facility] - Hematology and Cell countson 05-06-2024 HbA1c (Bld) [Mass fraction] 5.7 % 4.5-6.2 [facility] Comment on above: ADA RECOMMENDED LIMI T 4.0 - 6.0ADA THERAPEUTIC TARGET < 7.0ACTION SUGGESTED> 7.0 Immature granulocytes/100 WBC (Bld) 0.7 % High 0.0-0.5 [facility] Leukocytes [#/volume] correc toby for nucleated erythrocytes in Blood by Automated counon 05-06-2024 WBC corrected for nucl RBC Auto (Bld) [#/Vol] 13.2 10 3/uL High 4.0-11.0 [facility] Lymphocytes Auto (Bld) [#/Vo l]on 05-06-2024 Lymphocytes (Bld) [#/Vol] 2.7 10 3/uL 1.2-3.8 [facility] Lymphocytes/100 WBC Auto (Bl d)on 05-06-2024 Lymphocytes/100 WBC (Bld) 20.6 % 20.5-60.0 [facility] MCH Auto (RBC) [Entitic mass ]on 05-06-2024 MCH (RBC) [Entitic mass] 27.9 pg 26.7-34.0 [facility] MCHC Auto (RBC) [Mass/Vol]on 05-06-2024 MCHC (RBC) [Mass/Vol] 32.1 g/dL 29.9-35.2 [facility] MCV Auto (RBC) [Entitic vol] on 05-06-2024 MCV (RBC) [Entitic vol] 86.9 fL 81.0-99.0 [facility] Monocytes Auto (Bld) [#/Vol] on 05-06-2024 Monocytes (Bld) [#/Vol] 0.7 10 3/uL 0.3-0.8 [facility] Monocytes/100 WBC Auto (Bld) on 05-06-2024 Monocytes/100 WBC (Bld) 5.0 % 1.7-12.0 [facility] Neutrophils Auto (Bld) [#/Vo l]on 05-06-2024 Neutrophils (Bld) [#/Vol] 9.3 10 3/uL High 1.4-6.5 [facility] Neutrophils/100 WBC Auto (Bl d)on 05-06-2024 Neutrophils/100 WBC (Bld) 70.2 % 43.0-75.0 [facility] No Panel Informationon 05-06 Add Manual Differential See comment [facility] Comment on above: SEE SCANNED REPORT Eosinophils # (Auto) 0.4 10 3/uL 0.0-0.7 [facility] Immature Granulocyte # (Auto) 0.09 10 3/uL High 0.00-0.03 [facility] Platelet mean volume Auto (B ld) [Entitic vol]on 05-06-2024 Platelet mean volume (Bld) [Entitic vol] 8.5 fL Low 9.5-13.5 [facility] Platelets Auto (Bld) [#/Vol] on 05-06-2024 Platelets (Bld) [#/Vol] 419 10 3/uL 150-450 [facility] RBC Auto (Bld) [#/Vol]on RBC (Bld) [#/Vol] 4.73 10 6/uL 4.20-5.40 [facility] Basophils Auto (Bld) [#/Vol] on 05-01-2024 Basophils (Bld) [#/Vol] 0.1 10 3/uL 0.0-0.1 [facility] Basophils/100 WBC Auto (Bld) on 05-01-2024 Basophils/100 WBC (Bld) 0.3 % 0.2-2.0 [facility] Cholesterol in LDL Calc [Mas s/Vol]on 05-01-2024 Cholesterol in LDL [Mass/Vol] 56.0 mg/dL [facility] Comment on above: <100 mg/dl [id number] 0-129 mg/dl NEAR OR ABOVE [id number] mg/dl BORDERLINE [id number] mg/dl HIGH>190 mg/dl VERY HIGH Cholesterol in VLDL Calc [Ma ss/Vol]on 05-01-2024 Cholesterol in VLDL [Mass/Vol] 21.0 mg/dL [facility] Eosinophils/100 WBC Auto (Bl d)on 05-01-2024 Eosinophils/100 WBC (Bld) 0.6 % Low 0.9-7.0 [facility] Erythrocyte distribution wid th Auto (RBC) [Ratio]on 05-01-2024 Erythrocyte distribution width (RBC) [Ratio] 15.3 % High 11.0-15.0 [facility] Estimated glomerular filtrat ion rate (GFR) non- Americanon 05-01-2024 GFR/1.73 sq M.predicted among non-blacks MDRD (S/P/Bld) [Vol rate/Area] mL/min/{1.73_m2} >=60 [facility] Globulin Calc (S) [Mass/Vol] on 05-01-2024 Globulin (S) [Mass/Vol] 4.7 g/dL [facility] Hematocrit Auto (Bld) [Volum e fraction]on 05-01-2024 Hematocrit (Bld) [Volume fraction] 40.0 % 36.0-48.0 [facility] Hemoglobin [Mass/volume] in Bloodon 05-01-2024 Hemoglobin (Bld) [Mass/Vol] 12.9 g/dL 12.0-16.0 [facility] Laboratory - Chemistry and C hemistry - challengeon 05-01-2024 Albumin [Mass/Vol] 3.3 g/dL Low 3.4-5.0 [facility] ALP [Catalytic activity/Vol] 157 U/L High 46-116 [facility] ALT [Catalytic activity/Vol] 22 U/L 14-59 [facility] AST [Catalytic activity/Vol] 17 U/L 15-37 [facility] Bilirubin [Mass/Vol] 0.6 mg/dL 0.2-1.0 [facility] Calcium [Mass/Vol] 9.1 mg/dL 8.5-10.1 [facility] Chloride [Moles/Vol] 99 mmol/L 98-107 [facility] Cholesterol [Mass/Vol] 155 mg/dL <=200 [facility] Cholesterol in HDL [Mass/Vol] 78 mg/dL High 40-60 [facility] Comment on above: > or =60 mg/dl - LOW CARDIOVASCULAR RISK<40 mg/dl - HIGH CARDIOVASCULAR RISK CO2 [Moles/Vol] 27.0 mmol/L 21.0-32.0 [facility] Creatinine [Mass/Vol] 0.70 mg/dL 0.55-1.02 [facility] GFR/1.73 sq M.predicted MDRD (S/P/Bld) [Vol rate/Area] mL/min/{1.73_m2} >=60 [facility] Glucose [Mass/Vol] 124 mg/dL High 74-106 [facility] Potassium [Moles/Vol] 3.3 mmol/L Low 3.5-5.1 [facility] Protein [Mass/Vol] 8.0 g/dL 6.4-8.2 [facility] Sodium [Moles/Vol] 136 mmol/L 136-145 [facility] Triglyceride [Mass/Vol] 105 mg/dL <=150 [facility] Urea nitrogen [Mass/Vol] 15.0 mg/dL 7.0-18.0 [facility] Urea nitrogen/Creatinine [Mass ratio] 21.4 mg/mg [facility] Laboratory - Hematology and Cell countson 05-01-2024 Immature granulocytes/100 WBC (Bld) 0.5 % 0.0-0.5 [facility] Leukocytes [#/volume] correc toby for nucleated erythrocytes in Blood by Automated counon 05-01-2024 WBC corrected for nucl RBC Auto (Bld) [#/Vol] 19.0 10 3/uL High 4.0-11.0 [facility] Lymphocytes Auto (Bld) [#/Vo l]on 05-01-2024 Lymphocytes (Bld) [#/Vol] 2.0 10 3/uL 1.2-3.8 [facility] Lymphocytes/100 WBC Auto (Bl d)on 05-01-2024 Lymphocytes/100 WBC (Bld) 10.3 % Low 20.5-60.0 [facility] MCH Auto (RBC) [Entitic mass ]on 05-01-2024 MCH (RBC) [Entitic mass] 27.6 pg 26.7-34.0 [facility] MCHC Auto (RBC) [Mass/Vol]on 05-01-2024 MCHC (RBC) [Mass/Vol] 32.3 g/dL 29.9-35.2 [facility] MCV Auto (RBC) [Entitic vol] on 05-01-2024 MCV (RBC) [Entitic vol] 85.7 fL 81.0-99.0 [facility] Monocytes Auto (Bld) [#/Vol] on 05-01-2024 Monocytes (Bld) [#/Vol] 1.2 10 3/uL High 0.3-0.8 [facility] Monocytes/100 WBC Auto (Bld) on 05-01-2024 Monocytes/100 WBC (Bld) 6.2 % 1.7-12.0 [facility] Neutrophils Auto (Bld) [#/Vo l]on 05-01-2024 Neutrophils (Bld) [#/Vol] 15.6 10 3/uL High 1.4-6.5 [facility] Neutrophils/100 WBC Auto (Bl d)on 05-01-2024 Neutrophils/100 WBC (Bld) 82.1 % High 43.0-75.0 [facility] No Panel Informationon 05-01 Eosinophils # (Auto) 0.1 10 3/uL 0.0-0.7 [facility] Immature Granulocyte # (Auto) 0.09 10 3/uL High 0.00-0.03 [facility] Platelet mean volume Auto (B ld) [Entitic vol]on 05-01-2024 Platelet mean volume (Bld) [Entitic vol] 9.1 fL Low 9.5-13.5 [facility] Platelets Auto (Bld) [#/Vol] on 05-01-2024 Platelets (Bld) [#/Vol] 346 10 3/uL 150-450 [facility] RBC Auto (Bld) [#/Vol]on RBC (Bld) [#/Vol] 4.67 10 6/uL 4.20-5.40 [facility] Serum or plasma albumin/glob ulin mass ratioon 05-01-2024 Albumin/Globulin [Mass ratio] 0.7 {ratio} [facility] Serum or plasma anion gap de terminationon 05-01-2024 Anion gap [Moles/Vol] 13.3 mmol/L [facility] Serum or plasma total choles terol/high density lipoprotein (HDL) cholesterol mass franklin 05-01-2024 Cholesterol.total/Ch olesterol in HDL [Mass ratio] 2.0 {ratio} [facility] Comment on above: 3.3 - 4.4 LOW RISK4. 4 - 7.1 AVERAGE RISK7.1 - 11.0 MODERATE RISK>11.0 HIGH RISK C Urineon 02-22-2024 Bacteria identified Cx Nom (U) Microbiology PROCEDURE: Urine Culture [R1] SOURCE: U Random BODY SITE: COLLECTED DATE/TIME: 02/20/2024 15:02 EDT RECEIVED DATE/TIME: 02/20/2024 18:03 EDT START DATE/TIME: 02/20/2024 18:03 EDT FREE TEXT SOURCE: KELTON Perez APRN-C, Ana CAIN, MARKETING COMMUNICATIONS COORDINATOR-C, Kelsie X Kelsie X FINAL REPORTS Final Report [] Verified Date/Time: 02/22/2024 10:48 EDT 4,000 cfu/ml Mixed skin contaminants Performing Locations R1: This test was performed at: [facility], [address] [place] [address], [facility]- , [place], [facility] Comment on above: Performed By: #### [id number] #### [facility] [address] [place] [address] Screenson 02-21-2024 Screens [id number] FF Normal [facility] Patient Educationon 02-20-20 24 Patient Education Nephrology [...] ? 8 oz (237 mL) of milk, ksakrdf-twcxzizaxgtf-rn iry milk, and calcium-fortifiedfruit juice. Calcium-fortified means [...] Spinach (cooked), rhubarb, beets, sweet potatoes, and [place]ym[place] chard. ? Peanuts. ? Potato chips, citizen of [place] fries, and baked potatoes with skin on. ? Nuts and nut products. ? Chocolate. ? If you regularly take a diuretic medicine, make sure to eat at least 1 or 2 servings of fruits or vegetables that are high in potassium each day. These include: ? Avocado. ? Banana. ? [place], prune, carrot, or tomato juice. ? Baked [...] fish oil, or vitamin B6. ? Take sgwm-srb-ldtabvs and prescription medicines only as told by your health care provider. These include supplements. What foods sh (more content not included)... [facility] Urology Office/Clinic Noteon 02-20-2024 Urology Office/Clinic Note [...] with voice recognition artificial intelligence software, specifically [employer], [employer] and or [employer]. 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 U 24hr Ca 340 H. Citric acid 335 L. [3] Patient is taking Effer-K 25 mEq twice daily. She is tolerating this well without side effects. Continue current dose, patient to call for refills. Ordered: Urine Culture Urnls Dip Stick Auto w/o Microscopy POC 23634 4. Abnormal urinalysis (R82.90: Unspecified abnormal findings in urine) UA today with large leukocytes, negative blood/nitrites. Patient denies symptoms of UTI today. -Will send urine for culture, patient to call office if she becomes symptomatic Follow-up No qualifying data available Patient Education Dietary Guidelines to Help Prevent Kidney Stones Kidney Stones, Iswj-ow-Yvlk Problem List/Past Medical History Ongoing Arthritis Flank [...] Comments p (more content not included)... Normal [facility] Comment on above: Result Comment: Elec tronically Signed By: DAYAN Perez APRN, Kelsie Benítez\.br\Date and Time Signed: 02/20/24 16:06 EDT RAD - MISCon 02-12-2024 RAD - MISC [id number] FF [facility] Lab Reportson 02-10-2024 Lab Reports [id number] IFF [facility] Laboratory - Chemistry and C hemistry - challengeon 02-08-2024 Chloride [Moles/Vol] 102 mmol/L 98-107 [facility] CO2 [Moles/Vol] 28.0 mmol/L 21.0-32.0 [facility] Potassium [Moles/Vol] 4.0 mmol/L 3.5-5.1 [facility] Sodium [Moles/Vol] 138 mmol/L 136-145 [facility] Serum or plasma anion gap de terminationon 02-08-2024 Anion gap [Moles/Vol] 12.0 mmol/L [facility] Physician Orderon 09-12-2023 Physician Order [id number] IFF Normal [facility] RAD - MISCon 09-09-2023 RAD - MISC [id number] IFF Normal [facility] Lab Reportson 08-22-2023 Lab Reports [id number] FF Normal [facility] XR KUB 1 VIEWon 01-20-2023 XR KUB [...] by: EVERETT ERNANDEZ Date: 2023-01-20 11:11 Normal [facility] ELECTROLYTESon 10-27-2022 Anion gap [Moles/Vol] 12.4 mmol/L Normal [facility] Comment on above: Performed By: #### P THINT #### [facility] [address] [place] [address] Dr. Alejandrina Feng Chloride [Moles/Vol] 102 mmol/L Normal 98-[address] [facility] Comment on above: Performed By: #### P THINT #### [facility] [address] [address] [address] Alejandrina Feng CO2 [Moles/Vol] 28.5 mmol/L Normal 21.0-32.0 [facility] Comment on above: Performed By: #### P THINT #### [facility] [address] [place] [address] Dr. Alejandrina Feng Potassium [Moles/Vol] 3.9 mmol/L Normal 3.5-5.1 [facility] Comment on above: Performed By: #### P THINT #### [facility] [address] [place], [place] [address] Dr. Alejandirna Feng Sodium [Moles/Vol] 139 mmol/L Normal 136-145 [facility] Comment on above: Performed By: #### P THINT #### [facility] [address] [place], [place] [address] Dr. Alejandrina Feng US THYROIDon 08-29-2022 US [...] thyroid stable. TR 3 nodule TI-RADS: The [employer] TI-RADS committee's white paper recommendations for thyroid lesions classified as TR3 (mildly suspicious) are listed below: > 1.5 cm. Follow-up ultrasound in 1, 3, and 5 years. > 2.5 cm. FNA. J. Am Kyrie Radiol 2017;14:[id number]. Electronically authenticated by: EVERETT ERNANDEZ Date: 2022-08-29 07:19 Normal [facility] XR KUB 1 VIEWon 07-14-2022 XR [...] 1. Suspect right nephrolithiasis. Electronically authenticated by: JACKSONJAYNA BACH Date: 2022-07-14 06:26 Normal [address] [facility] ELECTROLYTESon 07-13-2022 Anion gap [Moles/Vol] 9.0 mmol/L Normal [facility] Comment on above: Performed By: #### E LEC #### [facility] [address] [address] [address] Alejandrina Feng Chloride [Moles/Vol] 101 mmol/L Normal 98-107 [facility] Comment on above: Performed By: #### E LEC #### [facility] [address] [address] [address] Alejandrina Feng CO2 [Moles/Vol] 27.5 mmol/L Normal 21.0-32.0 [facility] Comment on above: Performed By: #### E LEC #### [facility] [address] [address] [address] Alejandrina Feng Potassium [Moles/Vol] 3.5 mmol/L Normal 3.5-5.1 [facility] Comment on above: Performed By: #### E LEC #### [facility] [address] [address] [address] Alejandrina Feng Sodium [Moles/Vol] 134 mmol/L Critically low 136-145 [facility] Comment on above: Performed By: #### E LEC #### [facility] [address] [address] [address] Alejandrina Feng MG MAMM SCREEN 3D TUSHAR CADon 07-06-2022 MG MAMM SCREEN 3D TUSHAR CAD Patient: ZARIA CORONA Exam Date: 07/06/2022 : 1955 Gender:F Ordering : DR SEGUN KINGSLEY D.O. Admission #: [id number] Family : Order #: [id number] CLICK HERE TO VIEW EXAM RADIOLOGY REPORT [...] Treatments None Family Cancers None LOCATION: [facility] BREAST COMPOSITION: Heterogeneously dense,which may obscure [...] MD on 07/06/2022 at 10:00 Normal [address] [facility] CBC AUTO DIFFon 06-20-2022 BASO # 0.1 103/ul Normal 0.0-0.1 [facility] Comment on above: Performed By: #### C BC #### [facility] [address] [place] [address] Dr. Alejandrina Feng Basophils/100 WBC (Bld) 0.4 % Normal 0.2-2.0 [facility] Comment on above: Performed By: #### C BC #### [facility] [address] [place] [address] Dr. Alejandrina Feng EO # 0.1 103/ul Normal 0.0-0.7 [facility] Comment on above: Performed By: #### C BC #### [facility] [address] [place] [address] Dr. Alejandrina Feng Eosinophils/100 WBC (Bld) 0.6 % Critically low 0.9-7.0 [facility] Comment on above: Performed By: #### C BC #### [facility] [address] [place] [address] Dr. Alejandrina Feng Erythrocyte distribution width (RBC) [Ratio] 14.6 % Normal 11.0-15.0 [facility] Comment on above: Performed By: #### C BC #### [facility] [address] [place] [address] Dr. Alejandrina Feng Hematocrit (Bld) [Volume fraction] 43.6 % Normal 36.0-48.0 [facility] Comment on above: Performed By: #### C BC #### [facility] [address] [address] [address] Alejandrina Feng Hemoglobin (Bld) [Mass/Vol] 14.1 g/dL Normal 12.0-16.0 [facility] Comment on above: Performed By: #### C BC #### [facility] [address] [address] [address] Alejandrina Feng IG # 0.07 10e3/ul Critically high 0.00-0.03 [facility] Comment on above: Performed By: #### C BC #### [facility] [address] [address] [address] Alejandrina Feng IG % 0.6 % Critically high 0.0-0.5 [facility] Comment on above: Performed By: #### C BC #### [facility] [address] [address] [address] Alejandrina Feng LYMPH # 1.6 103/ul Normal 1.2-3.8 [facility] Comment on above: Performed By: #### C BC #### [facility] [address] [address] [address] Alejandrina Feng Lymphocytes/100 WBC (Bld) 12.4 % Critically low 20.5-60.0 [facility] Comment on above: Performed By: #### C BC #### [facility] [address] [place] [address] Dr. Alejandrina Feng MANUAL DIFF REQ NO Normal [facility] Comment on above: Performed By: #### C BC #### [facility] [address] [address] [address] Alejandrina Feng MCH (RBC) [Entitic mass] 27.9 pg Normal 26.7-34.[address] [facility] Comment on above: Performed By: #### C BC #### [facility] [address] [address] [address] Alejandrina Feng MCHC (RBC) [Mass/Vol] 32.3 g/dL Normal 29.9-35.[address] [facility] Comment on above: Performed By: #### C BC #### [facility] [address] [address] [address] Alejandrina Feng MCV (RBC) [Entitic vol] 86.3 fL Normal 81.0-99.0 [facility] Comment on above: Performed By: #### C BC #### [facility] [address] [address] [address] Alejandrina Feng MONO # 0.9 103/ul Critically high 0.3-0.8 [facility] Comment on above: Performed By: #### C BC #### [facility] [address] [address] [address] Alejandrina Feng Monocytes/100 WBC (Bld) 7.2 % Normal 1.7-12.0 [facility] Comment on above: Performed By: #### C BC #### [facility] [address] [place] [address] Dr. Alejandrina Feng NEUT # 10.0 103/ul Critically high 1.4-6.5 [facility] Comment on above: Performed By: #### C BC #### [facility] [address] [place] [address] Dr. Alejandrina Feng Neutrophils/100 WBC (Bld) 78.8 % Critically high 43.0-75.0 [facility] Comment on above: Performed By: #### C BC #### [facility] [address] [place] [address] Dr. Alejandrina Feng Platelet mean volume (Bld) [Entitic vol] 8.8 fL Critically low 9.5-13.5 [facility] Comment on above: Performed By: #### C BC #### [facility] [address] [place] [address] Dr. Alejandrina Feng PLT 404 103/ul Normal 150-[address] [facility] Comment on above: Performed By: #### C BC #### [facility] [address] [place] [address] Dr. Alejandrina Feng RBC 5.05 106/ul Normal 4.20-5.[address] [facility] Comment on above: Performed By: #### C BC #### [facility] [address] [place] [address] Dr. Alejandrina Feng WBC 12.7 103/ul Critically high 4.0-11.0 [facility] Comment on above: Performed By: #### C BC #### [facility] [address] [place] [address] Dr. Alejandrina Feng PROF 14(COMP METB)on 022 Albumin [Mass/Vol] 3.6 g/dL Normal 3.4-5.0 [facility] Comment on above: Performed By: #### C MP, TSH #### [facility] [address] [place] [address] Dr. Alejandrina Feng Albumin/Globulin [Mass ratio] 0.8 {ratio} Normal [facility] Comment on above: Performed By: #### C MP, TSH #### [facility] [address] [place] [address] Dr. Alejandrina Feng ALP [Catalytic activity/Vol] 182 U/L Critically high 46-116 [facility] Comment on above: Performed By: #### C MP, TSH #### [facility] [address] [place] [address] Dr. Alejandrina Feng ALT [Catalytic activity/Vol] 29 U/L Normal 14-59 [facility] Comment on above: Performed By: #### C MP, TSH #### [facility] [address] [place] [address] Dr. Alejandrina Feng Anion gap [Moles/Vol] 13.4 mmol/L Normal [facility] Comment on above: Performed By: #### C MP, TSH #### [facility] [address] [place] [address] Dr. Alejandrina Feng AST [Catalytic activity/Vol] 22 U/L Normal 15-37 [facility] Comment on above: Performed By: #### C MP, TSH #### [facility] [address] [place] [address] Dr. Alejandrina Feng Bilirubin [Mass/Vol] 0.5 mg/dL Normal 0.2-1.0 [facility] Comment on above: Performed By: #### C MP, TSH #### [facility] [address] [address] [address] Alejandrina Feng Calcium [Mass/Vol] 9.3 mg/dL Normal 8.5-10.1 [facility] Comment on above: Performed By: #### C MP, TSH #### [facility] [address] [address] [address] Alejandrina Feng Chloride [Moles/Vol] 102 mmol/L Normal 98-[address] [facility] Comment on above: Performed By: #### C MP, TSH #### [facility] [address] [address] [address] Alejandrina Feng CO2 [Moles/Vol] 26.2 mmol/L Normal 21.0-32.0 [facility] Comment on above: Performed By: #### C MP, TSH #### [facility] [address] [address] [address] Alejandrina Feng Creatinine [Mass/Vol] 0.94 mg/dL Normal 0.55-1.02 [facility] Comment on above: Performed By: #### C MP, TSH #### [facility] [address] [address] [address] Alejandrina Feng EGFR-AF RUSSIAN >60 Normal >=60 [facility] Comment on above: Performed By: #### C MP, TSH #### [facility] [address] [address] [address] Alejandrina Feng EGFR-NON AF RUSSIAN 59 mL/min/1.73m2 Critically low >=[address] [facility] Comment on above: Performed By: #### C MP, TSH #### [facility] [address] [address] [address] Alejandrina Feng Globulin (S) [Mass/Vol] 4.3 g/dL Normal [facility] Comment on above: Performed By: #### C MP, TSH #### [facility] [address] [address] [address] Alejandrina Feng Glucose [Mass/Vol] 101 mg/dL Normal 74-106 [facility] Comment on above: Performed By: #### C MP, TSH #### [facility] [address] [place] [address] Dr. Alejandrina Feng Potassium [Moles/Vol] 4.6 mmol/L Normal 3.5-5.1 [facility] Comment on above: Performed By: #### C MP, TSH #### [facility] [address] [place] [address] Dr. Alejandrina Feng Protein [Mass/Vol] 7.9 g/dL Normal 6.4-8.2 [facility] Comment on above: Performed By: #### C MP, TSH #### [facility] [address] [place] [address] Dr. Alejandrina Feng Sodium [Moles/Vol] 137 mmol/L Normal 136-145 [facility] Comment on above: Performed By: #### C MP, TSH #### [facility] [address] [place] [address] Dr. Alejandrina Feng Urea nitrogen [Mass/Vol] 19.0 mg/dL Critically high 7.0-18.0 [facility] Comment on above: Performed By: #### C MP, TSH #### [facility] [address] [place] [address] Dr. Alejandrina Feng Urea nitrogen/Creatinine [Mass ratio] 20.2 mg/mg Normal [facility] Comment on above: Performed By: #### C MP, TSH #### [facility] [address] [place] [address] Dr. Alejandrina Feng TSHon 06-20-2022 TSH 0.854 uIU/mL Normal 0.358-3.740 [facility] Comment on above: Performed By: #### C MP, TSH #### [facility] [address] [place] [address] Dr. Alejandrina Feng Covid-19 PCR ([facility])on 02-23 SARS-CoV-2 (COVID-19) RNA JACKSON+probe Ql (Unsp spec) Not detected Normal NOT DETECTED [facility] Comment on above: Result Comment: When [...] for this test is supported by the [place] of Health and Human Service's declaration that [...] used). Performed By: #### C BC #### [facility] [address] [place] [address] Dr. Alejandrina Feng ELECTROLYTESon 03-09-2022 Anion gap [Moles/Vol] 14.8 mmol/L Normal [facility] Comment on above: Performed By: #### E LEC #### [facility] [address] [place] [address] Dr. Alejandrina Feng Chloride [Moles/Vol] 103 mmol/L Normal 98-107 [facility] Comment on above: Performed By: #### E LEC #### [facility] [address] [place] [address] Dr. Alejandrina Feng CO2 [Moles/Vol] 25.2 mmol/L Normal 21.0-32.0 [facility] Comment on above: Performed By: #### E LEC #### [facility] [address] [place] [address] Dr. Alejandrina Feng Potassium [Moles/Vol] 4.0 mmol/L Normal 3.5-5.[address] [facility] Comment on above: Performed By: #### E LEC #### [facility] [address] [place] [address] Dr. Alejandrina Feng Sodium [Moles/Vol] 139 mmol/L Normal 136-145 [facility] Comment on above: Performed By: #### E LEC #### [facility] [address] [place] [address] Dr. Alejandrina Feng Covid-19 PCR ([facility])on SARS-CoV-2 (COVID-19) RNA JACKSON+probe Ql (Unsp spec) Not detected Normal NOT DETECTED [facility] Comment on above: Result Comment: This test is not yet approved or cleared by the [place] FDA. When there are no FDA-approved or cleared tests available, and other criteria are met, FDA can make tests available under an emergency access mechanism called an Emergency Use Authorization (EUA). The EUA for this test is supported by the [employer] of Health and Human Service's (HHS's) declaration [...] SARS-CoV-2. Performed By: #### C VDTBH #### [facility] [address] [place] [address] Dr. Alejandrina Feng BNPon 02-22-2022 Natriuretic peptide B (Bld) [Mass/Vol] 60.0 pg/mL Normal <=900.0 [facility] Comment on above: Performed By: #### P THINT #### [facility] [address] [place] [address] Dr. Alejandrina Feng CBC AUTO DIFFon 02-22-2022 BASO # 0.1 103/ul Normal 0.0-0.1 [facility] Comment on above: Performed By: #### C BC #### [facility] [address] [place] [address] Dr. Alejandrina Feng Basophils/100 WBC (Bld) 0.4 % Normal 0.2-2.0 [facility] Comment on above: Performed By: #### C BC #### [facility] [address] [place] [address] Dr. Alejandrina Feng EO # 0.2 103/ul Normal 0.0-0.7 [facility] Comment on above: Performed By: #### C BC #### [facility] [address] [place] [address] Dr. Alejandrina Feng Eosinophils/100 WBC (Bld) 1.4 % Normal 0.9-7.0 [facility] Comment on above: Performed By: #### C BC #### [facility] [address] [place] [address] Dr. Alejandrina Feng Erythrocyte distribution width (RBC) [Ratio] 13.3 % Normal 11.0-15.0 [facility] Comment on above: Performed By: #### C BC #### [facility] [address] [place] [address] Dr. Alejandrina Feng Hematocrit (Bld) [Volume fraction] 45.1 % Normal 36.0-48.0 [facility] Comment on above: Performed By: #### C BC #### [facility] [address] [place] [address] Dr. Alejandrina Feng Hemoglobin (Bld) [Mass/Vol] 14.4 g/dL Normal 12.0-16.0 [facility] Comment on above: Performed By: #### C BC #### [facility] [address] [place] [address] Dr. lAejandrina Feng IG # 0.05 10e3/ul Critically high 0.00-0.03 [facility] Comment on above: Performed By: #### C BC #### [facility] [address] [place] [address] Dr. Alejandrina Feng IG % 0.4 % Normal 0.0-0.[address] [facility] Comment on above: Performed By: #### C BC #### [facility] [address] [place] [address] Dr. Alejandrina Feng LYMPH # 1.6 103/ul Normal 1.2-3.[address] [facility] Comment on above: Performed By: #### C BC #### [facility] [address] [place] [address] Dr. Alejandrina Feng Lymphocytes/100 WBC (Bld) 11.2 % Critically low 20.5-60.0 [facility] Comment on above: Performed By: #### C BC #### [facility] [address] [place] [address] Dr. Alejandrina Feng MANUAL DIFF REQ NO Normal [facility] Comment on above: Performed By: #### C BC #### [facility] [address] [place] [address] Dr. Alejandrina Feng MCH (RBC) [Entitic mass] 28.0 pg Normal 26.7-34.0 [facility] Comment on above: Performed By: #### C BC #### [facility] [address] [place] [address] Dr. Alejandrina Feng MCHC (RBC) [Mass/Vol] 31.9 g/dL Normal 29.9-35.2 [facility] Comment on above: Performed By: #### C BC #### [facility] [address] [place] [address] Dr. Alejandrina Feng MCV (RBC) [Entitic vol] 87.6 fL Normal 81.0-99.0 [facility] Comment on above: Performed By: #### C BC #### [facility] [address] [place] [address] Dr. Alejandrina Feng MONO # 0.6 103/ul Normal 0.3-0.8 [facility] Comment on above: Performed By: #### C BC #### [facility] [address] [place] [address] Dr. Alejandrina Feng Monocytes/100 WBC (Bld) 4.5 % Normal 1.7-12.0 [facility] Comment on above: Performed By: #### C BC #### [facility] [address] [place] [address] Dr. Alejandrina Feng NEUT # 11.4 103/ul Critically high 1.4-6.5 [facility] Comment on above: Performed By: #### C BC #### [facility] [address] [place] [address] Dr. Alejandrina Feng Neutrophils/100 WBC (Bld) 82.1 % Critically high 43.0-75.0 [facility] Comment on above: Performed By: #### C BC #### [facility] [address] [place] [address] Dr. Alejandrina Feng Platelet mean volume (Bld) [Entitic vol] 9.1 fL Critically low 9.5-13.5 [facility] Comment on above: Performed By: #### C BC #### [facility] [address] [place] [address] Dr. Alejandrina Feng PLT 363 103/ul Normal 150-450 [facility] Comment on above: Performed By: #### C BC #### [facility] [address] [place] [address] Dr. Alejandrina Feng RBC 5.15 106/ul Normal 4.20-5.40 [facility] Comment on above: Performed By: #### C BC #### [facility] [address] [place] [address] Dr. Alejandrina Feng WBC 13.9 103/ul Critically high 4.0-11.0 [facility] Comment on above: Performed By: #### C BC #### [facility] [address] [place] [address] Dr. Alejandrina Feng PROF 14(COMP METB)on 022 Albumin [Mass/Vol] 4.0 g/dL Normal 3.4-5.0 [facility] Comment on above: Performed By: #### P THINT #### [facility] [address] [place] [address] Dr. Alejandrina Feng Albumin/Globulin [Mass ratio] 0.8 {ratio} Normal [facility] Comment on above: Performed By: #### P THINT #### [facility] [address] [place] [address] Dr. Alejandrina eFng ALP [Catalytic activity/Vol] 200 U/L Critically high 46-116 [facility] Comment on above: Performed By: #### P THINT #### [facility] [address] [place] [address] Dr. Alejandrina Feng ALT [Catalytic activity/Vol] 29 U/L Normal 14-59 [facility] Comment on above: Performed By: #### P THINT #### [facility] [address] [address] [address] Alejandrina Feng Anion gap [Moles/Vol] 12.2 mmol/L Normal [facility] Comment on above: Performed By: #### P THINT #### [facility] [address] [address] [address] Alejandrina Feng AST [Catalytic activity/Vol] 25 U/L Normal 15-37 [facility] Comment on above: Performed By: #### P THINT #### [facility] [address] [address] [address] Alejandrina Feng Bilirubin [Mass/Vol] 0.4 mg/dL Normal 0.2-1.0 [facility] Comment on above: Performed By: #### P THINT #### [facility] [address] [address] [address] Alejandrina Feng Calcium [Mass/Vol] 9.5 mg/dL Normal 8.5-10.1 [facility] Comment on above: Performed By: #### P THINT #### [facility] [address] [address] [address] Alejandrina Feng Chloride [Moles/Vol] 101 mmol/L Normal 98-107 [facility] Comment on above: Performed By: #### P THINT #### [facility] [address] [address] [address] Alejandrina Feng CO2 [Moles/Vol] 25.8 mmol/L Normal 21.0-32.0 [facility] Comment on above: Performed By: #### P THINT #### [facility] [address] [address] [address] Alejandrina Feng Creatinine [Mass/Vol] 0.69 mg/dL Normal 0.55-1.02 [facility] Comment on above: Performed By: #### P THINT #### [facility] [address] [address] [address] Alejandrina Feng EGFR-AF RUSSIAN >60 Normal >=60 [facility] Comment on above: Performed By: #### P THINT #### [facility] [address] [address] [address] Alejandrina Feng EGFR-NON AF RUSSIAN >60 Normal >=60 [facility] Comment on above: Performed By: #### P THINT #### [facility] [address] [address] [address] Alejandrina Feng Globulin (S) [Mass/Vol] 4.8 g/dL Normal [facility] Comment on above: Performed By: #### P THINT #### [facility] [address] [address] [address] Alejandrina Feng Glucose [Mass/Vol] 96 mg/dL Normal 74-106 [facility] Comment on above: Performed By: #### P THINT #### [facility] [address] [address] [address] Alejandrina Feng Potassium [Moles/Vol] 4.0 mmol/L Normal 3.5-5.1 [facility] Comment on above: Performed By: #### P THINT #### [facility] [address] [address] [address] Alejandrina Feng Protein [Mass/Vol] 8.8 g/dL Critically high 6.4-8.2 [facility] Comment on above: Performed By: #### P THINT #### [facility] [address] [place] [address] Dr. Alejandrina Feng Sodium [Moles/Vol] 135 mmol/L Critically low 136-145 [facility] Comment on above: Performed By: #### P THINT #### [facility] [address] [address] [address] Alejandrina Feng Urea nitrogen [Mass/Vol] 18.0 mg/dL Normal 7.0-18.0 [facility] Comment on above: Performed By: #### P THINT #### [facility] [address] [address] [address] Alejandrina Feng Urea nitrogen/Creatinine [Mass ratio] 26.1 mg/mg Normal [facility] Comment on above: Performed By: #### P THINT #### [facility] [address] [address] [address] Alejandrina Feng TROPONIN, HIGH SENSITIVITYon 02-22-2022 HSTROP 7.4 pg/mL Normal 4.0-51.3 [facility] Comment on above: Result Comment: CUT- OFF POINTS HAVE BEEN ESTABLISHED BASED ON THE FOURTH UNIVERSAL DEFINITIONS OF MYOCARDIAL INFARCTION. THE UPPER REFERENCE LIMIT (URL) OF TROPONIN, DEFINED THE 99TH PERCENTILE OF cTnI DISTRIBUTION IN A REFERENCE POPULATION, HAS BEEN CONFIRMED THE DECISION THRESHOLD FOR [place] DIAGNOSIS. Performed By: #### H STROPN #### [facility] [address] [address] [address] Alejandrina Feng HSTROP 6.4 pg/mL Normal 4.0-51.3 [facility] Comment on above: Result Comment: CUT- OFF POINTS HAVE BEEN ESTABLISHED BASED ON THE FOURTH UNIVERSAL DEFINITIONS OF MYOCARDIAL INFARCTION. THE UPPER REFERENCE LIMIT (URL) OF TROPONIN, DEFINED THE 99TH PERCENTILE OF cTnI DISTRIBUTION IN A REFERENCE POPULATION, HAS BEEN CONFIRMED THE DECISION THRESHOLD FOR MN DIAGNOSIS. Performed By: #### P THINT #### [facility] [address] [place] [address] Dr. Alejandrina Feng XR CHEST 1 Von [...] by: EVERETT ERNANDEZ Date: 2022-02-22 13:20 Normal [facility] OSMOLALITYon 02-02-2022 Osmolality [Osmolality] 284 mosm/kg Normal 280-301 [facility] Comment on above: Performed By: #### P THINT #### [facility] [address] [address] [address] Alejandrina Feng OSMOLALITY URINEon Osmolality, Urine 629 mOsmol/kg Normal [facility] Comment on above: Result Comment: 24 h r : 300 - 900 Random: 50 - 1400 After 12hr fluid restriction: >850 Performed By: #### O SMOU #### [facility] [address] [place] [address] Dr. Alejandrina Feng PTH INTACTon 02-01-2022 PTH, Intact 42 pg/mL Normal 15-65 [facility] Comment on above: Performed By: #### P THINT #### [facility] [address] [place] [address] Dr. Alejandrina Feng PROF CHEM 8 (BAS METB)on Anion gap [Moles/Vol] 12.7 mmol/L Normal [facility] Comment on above: Performed By: #### P THINT #### [facility] [address] [place] [address] Dr. Alejandrina Feng Calcium [Mass/Vol] 8.7 mg/dL Normal 8.5-10.1 [facility] Comment on above: Performed By: #### P THINT #### [facility] [address] [place] [address] Dr. Alejandrina Feng Chloride [Moles/Vol] 100 mmol/L Normal 98-107 [facility] Comment on above: Performed By: #### P THINT #### [facility] [address] [place] [address] Dr. Alejandrina Feng CO2 [Moles/Vol] 27.7 mmol/L Normal 21.0-32.0 [facility] Comment on above: Performed By: #### P THINT #### [facility] [address] [place] [address] Dr. Alejandrina Feng Creatinine [Mass/Vol] 0.65 mg/dL Normal 0.55-1.02 [facility] Comment on above: Performed By: #### P THINT #### [facility] [address] [place] [address] Dr. Alejandrina Feng EGFR-AF RUSSIAN >60 Normal >=60 [facility] Comment on above: Performed By: #### P THINT #### [facility] [address] [place] [address] Dr. Alejandrina Feng EGFR-NON AF RUSSIAN >60 Normal >=60 [facility] Comment on above: Performed By: #### P THINT #### [facility] [address] [address] [address] Alejandrina Feng Glucose [Mass/Vol] 103 mg/dL Normal 74-106 [facility] Comment on above: Performed By: #### P THINT #### [facility] [address] [address] [address] Alejandrina Feng Potassium [Moles/Vol] 3.4 mmol/L Critically low 3.5-5.1 [facility] Comment on above: Performed By: #### P THINT #### [facility] [address] [address] [address] Alejandrina Feng Sodium [Moles/Vol] 137 mmol/L Normal 136-145 [facility] Comment on above: Performed By: #### P THINT #### [facility] [address] [address] [address] Alejandrina Feng Urea nitrogen [Mass/Vol] 15.0 mg/dL Normal 7.0-18.0 [facility] Comment on above: Performed By: #### P THINT #### [facility] [address] [address] [address] Alejandrina Feng Urea nitrogen/Creatinine [Mass ratio] 23.1 mg/mg Normal [facility] Comment on above: Performed By: #### P THINT #### [facility] [address] [address] [address] Alejandrina Feng SODIUM RANDOM URINEon 2021 Sodium (U) [Moles/Vol] 74 mmol/L Normal 30-90 [facility] Comment on above: Performed By: #### N AU #### [facility] [address] [address] [address] Alejandrina Feng TSHon 01-31-2022 TSH 0.791 uIU/mL Normal 0.358-3.740 [facility] Comment on above: Performed By: #### P THINT #### [facility] [address] [address] [address] Alejandrina Feng TSH RANGE SEE BELOW Normal [facility] Comment on above: Result Comment: <0.3 4 UIU/ml HYPERTHYROID 0.34-5.60 UIU/ml EUTHYROID >5.60 UIU/ml HYPOTHYROID Performed By: #### P THINT #### [facility] [address] [address] [address] Alejandrina Feng Vital Signs Date Time Vital Sign Value Performing Clinician Facility 08-07-2024 09:24-0500 Body height 162.56 cm [facility] 08-07-2024 09:24-0500 Body mass index (BMI) [Ratio] 24.9 kg/m2 [facility] 08-07-2024 09:24-0500 Body weight 65.94 kg [facility] 08-07-2024 09:24-0500 Diastolic blood pressure 79 mm[Hg] [facility] 08-07-2024 09:24-0500 Heart rate 83 /min [facility] 08-07-2024 09:24-0500 Respiratory rate 12 /min [facility] 08-07-2024 09:24-0500 Systolic blood pressure 120 mm[Hg] [facility] 07-26-2024 09:06-0400 Body height 162.56 cm [facility] 07-26-2024 09:06-0400 Body mass index (BMI) [Ratio] 25.1 kg/m2 [facility] 07-26-2024 09:06-0400 Body weight 66.39 kg [facility] 07-26-2024 09:06-0400 Diastolic blood pressure 78 mm[Hg] [facility] 07-26-2024 09:06-0400 Heart rate 76 /min [facility] 07-26-2024 09:06-0400 Respiratory rate 12 /min [facility] 07-26-2024 09:06-0400 Systolic blood pressure 129 mm[Hg] [facility] 04-15-2024 14:16-0400 Body height 162.56 cm [facility] 04-15-2024 14:16-0400 Body mass index (BMI) [Ratio] 25.9 kg/m2 [facility] 04-15-2024 14:16-0400 Body weight 68.71 kg [facility] 04-15-2024 14:16-0400 Diastolic blood pressure 83 mm[Hg] [facility] 04-15-2024 14:16-0400 Heart rate 80 /min [facility] 04-15-2024 14:16-0400 Respiratory rate 12 /min [facility] 04-15-2024 14:16-0400 Systolic blood pressure 123 mm[Hg] [facility] 02-20-2024 14:50-0400 Blood Pressure Location Kelsie Orzech [facility] 02-20-2024 14:50-0400 Body temperature 98.06 [degF] Kelsie Orzech [facility] 02-20-2024 14:50-0400 Diastolic blood pressure 84 mm[Hg] Kelsie Orzech [facility] 02-20-2024 14:50-0400 Heart rate 83 /min Kelsie Orzech [facility] 02-20-2024 14:50-0400 Respiratory rate 16 /min Kelsie Orzech [facility] 02-20-2024 14:50-0400 Systolic blood pressure 123 mm[Hg] Kelsie Orzech [facility] 02-20-2024 12:02-0400 Body height 162.56 cm [facility] 02-20-2024 12:02-0400 Body mass index (BMI) [Ratio] 25.8 kg/m2 [facility] 02-20-2024 12:02-0400 Body weight 68.26 kg [facility] 02-20-2024 12:02-0400 Diastolic blood pressure 82 mm[Hg] [facility] 02-20-2024 12:02-0400 Heart rate 83 /min [facility] 02-20-2024 12:02-0400 Respiratory rate 12 /min [facility] 02-20-2024 12:02-0400 Systolic blood pressure 130 mm[Hg] [facility] 12-27-2023 09:02-0400 Body height 162.56 cm [facility] 12-27-2023 09:02-0400 Body mass index (BMI) [Ratio] 26.2 kg/m2 [facility] 12-27-2023 09:02-0400 Body weight 69.11 kg [facility] 12-27-2023 09:02-0400 Diastolic blood pressure 84 mm[Hg] [facility] 12-27-2023 09:02-0400 Heart rate 76 /min [facility] 12-27-2023 09:02-0400 Respiratory rate 12 /min [facility] 12-27-2023 09:02-0400 Systolic blood pressure 127 mm[Hg] [facility] 12-19-2023 08:57-0400 Body height 162.56 cm [facility] 12-19-2023 08:57-0400 Body mass index (BMI) [Ratio] 25.9 kg/m2 [facility] 12-19-2023 08:57-0400 Body weight 68.54 kg [facility] 12-19-2023 08:57-0400 Diastolic blood pressure 85 mm[Hg] [facility] 12-19-2023 08:57-0400 Heart rate 98 /min [facility] 12-19-2023 08:57-0400 Respiratory rate 12 /min [facility] 12-19-2023 08:57-0400 Systolic blood pressure 124 mm[Hg] [facility] 10-09-2023 10:00-0500 Body height 162.56 cm Segun Ball Other [facility] 10-09-2023 10:00-0500 Body mass index (BMI) [Ratio] 25.81 kg/m2 Segun Ball Other [facility] Other 10-09-2023 10:00-0500 Body weight 68.22 kg Segun Ball Other [facility] 10-09-2023 10:00-0500 Diastolic blood pressure 83 mm[Hg] Segun Ball Other [facility] 10-09-2023 10:00-0500 Respiratory rate 12 /min Segun Ball Other [facility] Other 10-09-2023 10:00-0500 Systolic blood pressure 126 mm[Hg] Segun Ball Other [facility] 09-19-2023 13:45-0500 Body height 162.56 cm Segun Ball Other [facility] Other 09-19-2023 13:45-0500 Body mass index (BMI) [Ratio] 26.02 kg/m2 Segun Ball Other [facility] Other 09-19-2023 13:45-0500 Body weight 68.77 kg Segun Ball Other [facility] Other 09-19-2023 13:45-0500 Diastolic blood pressure 79 mm[Hg] Segun Ball Other [facility] Other 09-19-2023 13:45-0500 Respiratory rate 12 /min Segun Ball Other [facility] Other 09-19-2023 13:45-0500 Systolic blood pressure 123 mm[Hg] Segun Ball Other [facility] Other 04-10-2023 11:00-0400 Body height 162.56 cm Segun Ball Other [facility] Other 04-10-2023 11:00-0400 Body mass index (BMI) [Ratio] 26.29 kg/m2 Segun Ball Other [facility] Other 04-10-2023 11:00-0400 Body weight 69.49 kg Segun Ball Other [facility] Other 04-10-2023 11:00-0400 Diastolic blood pressure 74 mm[Hg] Segun Ball Other [facility] Other 04-10-2023 11:00-0400 Respiratory rate 12 /min Segun Ball Other [facility] Other 04-10-2023 11:00-0400 Systolic blood pressure 108 mm[Hg] Segun Ball Other [facility] Other 01-25-2023 12:30-0400 Body height 162.56 cm Segun Ball Other [facility] Other 01-25-2023 12:30-0400 Body mass index (BMI) [Ratio] 26.05 kg/m2 Segun Ball Other [facility] Other 01-25-2023 12:30-0400 Body weight 68.86 kg Segun Ball Other [facility] Other 01-25-2023 12:30-0400 Diastolic blood pressure 81 mm[Hg] Segun Ball Other [facility] Other 01-25-2023 12:30-0400 Respiratory rate 12 /min Segun Ball Other [facility] Other 01-25-2023 12:30-0400 Systolic blood pressure 119 mm[Hg] Segun Ball Other [facility] Other 12-06-2022 11:00-0400 Body height 162.56 cm Segun Ball Other [facility] Other 12-06-2022 11:00-0400 Body mass index (BMI) [Ratio] 25.98 kg/m2 Segun Ball Other [facility] Other 12-06-2022 11:00-0400 Body weight 68.68 kg Segun Ball Other [facility] Other 12-06-2022 11:00-0400 Diastolic blood pressure 74 mm[Hg] Segun Ball Other [facility] Other 12-06-2022 11:00-0400 Respiratory rate 16 /min Segun Ball Other [facility] Other 12-06-2022 11:00-0400 Systolic blood pressure 117 mm[Hg] Segun Ball Other [facility] Other 07-13-2022 13:16-0400 Blood Pressure Location NOE SVITLANA [facility] 07-13-2022 13:16-0400 Diastolic blood pressure 88 mm[Hg] NOE SVITLANA [facility] 07-13-2022 13:16-0400 Heart rate 79 /min NOE SVITLANA [facility] 07-13-2022 13:16-0400 Respiratory rate 16 /min NOE SVITLANA [facility] 07-13-2022 13:16-0400 Systolic blood pressure 138 mm[Hg] NOE SVITLANA [facility] Encounters Encounter Date Encounter Type Care Provider Facility Start: 02-24-2025 ambulatory Enrique Boss ty:[facility] Start: 08-07-2024 End: 08-07-2024 ambulatory [facility] Work Phone: Start: 08-07-2024 End: 08-07-2024 Patient encounter procedure [facility] Work Phone: Start: 07-31-2024 Non-patient / Non-visit [facility] Work Phone: Start: 07-26-2024 End: 07-26-2024 ambulatory [facility] Work Phone: Start: 07-26-2024 End: 07-26-2024 Patient encounter procedure [facility] Work Phone: Start: 05-06-2024 End: 05-06-2024 ambulatory [facility] Facility:[facility] Start: 05-06-2024 Non-patient / Non-visit [facility] Work Phone: Start: 05-01-2024 Non-patient / Non-visit [facility] Work Phone: Start: 04-15-2024 End: 04-15-2024 ambulatory [facility] Work Phone: Start: 04-15-2024 End: 04-15-2024 Encounter for general adult medical examination without abnormal findings [facility] Start: 04-15-2024 End: 04-15-2024 Patient encounter procedure [facility] Work Phone: Start: 02-20-2024 End: 02-20-2024 Lab Drop off Kelsie X Orzech [facility] Start: 02-20-2024 End: 02-20-2024 ambulatory Kelsie X Ana Facility[facility] Start: 02-20-2024 End: 02-20-2024 Patient encounter procedure Kelsie X Ana [facility] Start: 02-20-2024 End: 02-20-2024 ambulatory [facility] Work Phone: Start: 02-20-2024 End: 02-20-2024 Patient encounter procedure [facility] Work Phone: Start: 02-08-2024 Non-patient / Non-visit [facility]ician [facility] [employer] [facility] Work Phone: Start: 12-27-2023 End: 12-27-2023 ambulatory [facility] Work Phone: Start: 12-27-2023 End: 12-27-2023 Patient encounter procedure [facility] Work Phone: Start: 12-19-2023 End: 12-19-2023 ambulatory [facility] Work Phone: Start: 12-19-2023 End: 12-19-2023 Patient encounter procedure [facility] Work Phone: Start: 11-29-2023 Non-patient / Non-visit [facility] [employer] [facility] Work Phone: Start: 10-10-2023 End: 10-10-2023 ambulatory Segun Kingsley Other [facility] Other Start: 10-10-2023 Telephone encounter Segun Kingsley [facility] Start: 10-09-2023 End: 10-09-2023 ambulatory Segun Kingsley Other [facility] Other Start: 10-09-2023 Office outpatient vi sit 25 minutes Segun Kingsley [facility] Start: 10-09-2023 End: 10-09-2023 Patient encounter procedure [facility] Work Phone: Start: 09-22-2023 End: 09-22-2023 ambulatory Segun Kingsley Other [facility] Other Start: 09-22-2023 Telephone encounter Segun Kingsley [facility] Start: 09-19-2023 End: 09-19-2023 ambulatory Segun Kingsley Other [facility] Other Start: 09-19-2023 Office outpatient vi sit 15 minutes Segun Ball [facility] Start: 09-13-2023 Telephone encounter Segun Kingsley [facility] Start: 09-13-2023 End: 09-13-2023 ambulatory ELOINA DUMONT [facility] [employer] Other Start: 07-19-2023 End: 07-19-2023 ambulatory Segun Kingsley Other [facility] Other Start: 07-19-2023 Office outpatient vi sit 15 minutes Segun Ball [facility] Start: 06-20-2023 End: 06-20-2023 ambulatory Segun Kingsley Other [facility] Other Start: 06-20-2023 Telephone encounter Segun Kingsley [facility] Start: 04-13-2023 End: 04-13-2023 ambulatory Segun Kingsley Other [facility] Other Start: 04-13-2023 Telephone encounter Segun Kingsley [facility] Start: 04-10-2023 End: 04-10-2023 ambulatory Segun Ball Other [facility] Other Start: 04-10-2023 Encounter for genera l adult medical examination without abnormal findings Segun Kingsley [facility] Start: 04-10-2023 Periodic preventive med est patient 65yrs& older Segun Kingsley [facility] Start: 01-25-2023 End: 01-25-2023 ambulatory Segun Ball Other [email or web address] [facility] Other Start: 01-25-2023 Office outpatient vi sit 15 minutes Segun Kingsley [facility] Start: 01-20-2023 End: 01-21-[address] ENRIQUE VÁSQUEZ . Facility:[facility] Start: 12-06-2022 End: 12-06-2022 ambulatory Segun Kingsley Other [facility] Other Start: 12-06-2022 Office outpatient vi sit 25 minutes Segun Kingsley [facility] Start: 10-27-2022 End: 10-28-[address] ENRIQUE VÁSQUEZ . Facility:[facility] Start: 08-26-2022 End: 08-27-[address] ELOINA DUMONT Facility:[facility] Start: 07-13-2022 End: 07-14-2022 ambulatory Jackson Bach Facility:[facility] Start: 07-13-2022 End: 07-13-2022 Patient encounter procedure NOE SHANE [facility] Start: 07-06-2022 End: 07-07-[address] SEGUN KINGSLEY Facility:[facility] Start: 06-20-2022 End: 06-21-[address] SEGUN KINGSLEY Facility:[facility] Start: 04-01-2022 Adult health examination Segun Kingsley Other [facility] Other Start: 03-11-2022 End: 03-11-[address] SEGUN KINGSLEY Facility:[facility] Start: 03-09-2022 End: 03-10-[address] ENRIQUE VÁSQUEZ . Facility:[facility] Start: 03-02-2022 End: 03-02-[address] SEGUN KINGSLEY Facility:[facility] Start: 02-22-2022 End: 02-22-[address] SEGUN KINGSLEY Facility:[facility] Start: 01-31-2022 End: 02-01-[address] SEGUN KINGSLEY Facility:[facility] Procedures Date Procedure Procedure Detail Performing Clinician Start: 02-08-2024 Radiography of jiebic-exsdhr-dsnpaxy Kelsie Perez Start: 06-03-2021 Extracorporeal shock wave lithotripsy of [...] of Treatment Date Care Activity Detail Author Comprehensive metabo lic 2000 panel - Serum or Plasma [facility] MG Breast - bilateral Screening [facility] Patient Education Low back pain in adults [facility] Work Phone: XR Foot - right GE 3 Views [facility] Immunizations Immunization Date Immunization Notes Care Provider Fa quoc 06-22-2022 influenza virus vaccine, split virus (incl. purified surface antigen) Segun Kingsley Other [facility] Other 06-22-2022 influenza virus vaccine, unspecified formulation [facility] 06-22-2022 influenza, high dose seasonal, preservative-free Segun Kingsley Other [email or web address] [facility] Other 04-01-2022 pneumococcal conjuga te vaccine, 13 valent NOE SHANE [facility] 09-01-2021 COVID-19 Vaccine Pfi zer - Documentation Purposes Only Segun Kingsley Other [facility] 09-01-2021 SARS-CoV-2 (COVID-19 ) Ad26 vaccine, recombinant NOE SHANE [facility] 07-19-2021 influenza virus vaccine, split virus (incl. purified surface antigen) Segun Kingsley Other [facility] Other 07-19-2021 influenza virus vaccine, unspecified formulation [facility] 05-26-2021 influenza virus vaccine, unspecified formulation NOE SVITLANA [facility] 01-05-2021 diphtheria, tetanus toxoids and acellular pertussis vaccine, unspecified formulation Segun Kingsley Other [facility] 01-05-2021 tetanus toxoid, redu agustin diphtheria toxoid, and acellular pertussis vaccine, adsorbed NOE SVITLANA [facility] 12-25-2020 COVID-19, mRNA, LNP- S, PF, 30 mcg/0.3 mL dose NOE SVITLANA [facility] Comment on above: Reason for Medicatio n: Prophylaxis 12-04-2020 COVID-19, mRNA, LNP- S, PF, 30 mcg/0.3 mL dose NOE SVITLANA [facility] Comment on above: Reason for Medicatio n: Prophylaxis 08-14-2020 pneumococcal polysaccharide vaccine, 23 valent Segun Kingsley Other [facility] 08-11-2020 influenza virus vaccine, split virus (incl. purified surface antigen) Segun Kingsley Other [email or web address] [facility] Other 08-11-2020 influenza virus vaccine, unspecified formulation [facility] 08-10-2020 influenza virus vaccine, unspecified formulation NOE SVITLANA [facility] 07-25-2018 influenza virus vaccine, split virus (incl. purified surface antigen) Segun Kingsley Other [facility] Other 07-25-2018 influenza virus vaccine, unspecified formulation NOE SHANE [facility] 10-12-2017 influenza virus vaccine, split virus (incl. purified surface antigen) Segun Kingsley Other [facility] Other 10-12-2017 influenza virus vaccine, unspecified formulation [facility] Payers Date Payer Category Payer Self-pay 2024 Medicare [id number] 1960 Unknown [id number] 2. [id number] 1955 Unknown [id number] 2.16.84 0.1.345698.3.579.2.593 1954 Unknown [id number] 2.16.84 0.1.938905.3.579.2.593 1954 Unknown [id number] 2.16.84 0.1.793077.3.579.2.593 1954 Unknown [id number] 2.16.84 0.1.271806.3.579.2.593 1954 Unknown [id number] 2.16.84 0.1.715369.3.579.2.593 1954 Unknown [id number] 2.16.84 0.1.044590.3.579.2.593 1954 Unknown [id number] 2.16.84 0.1.556743.3.579.2.593 1954 Unknown [id number] 2.16.84 0.1.096701.3.579.2.593 1954 Unknown [id number] 2.16.84 0.1.301256.3.579.2.593 1954 Unknown [id number] 2.16.84 0.1.755571.3.579.2.593 1954 Unknown [id number] 2.16.84 0.1.864987.3.579.2.593 1954 Unknown [id number] 2.16.840 .1.038735.3.579.2.1259 1954 Unknown [id number] 2.16.8 40.1.380595.3.579.2.727 1954 Unknown [id number] 2.16.8 40.1.856493.3.579.2.727 1954 Unknown [id number] 2.16.8 40.1.248172.3.579.2.727 1954 Unknown [id number] 2.16.8 40.1.579436.3.579.2.727 Unknown [id number] 2.16.8 40.1.309274.3.579.2.531 Social History Date Type Detail Facility Start: 07-13-2022 End: 12-18-2023 Tobacco smoking status Never smoked tobacco (finding) [facility] Tobacco smoking status Never [facility] Sex Assigned At Female [facility] Start: 1955 Sex Assigned At Female [facility] Start: 08-07-2024 Sex Female (finding) [facility] Functional Status Date Assessment Result Facility 02-20-2024 Functional Status N/A [facility] 07-13-2022 Functional Status N/A [facility] Clinical Notes 07-13-2022 to 07-26-2024 Note Date & Type Note Facility 07-26-2024 Evaluation note Diagnosis Onset Date Resolution Allergic contact dermatitis due to clothing acute July 26 8:51am Chronic venous insufficiency of lower extremity acute July 26 8:51am Elevated cholesterol acute [facility] 2023 9:17am Essential (primary) hypertension acute August 07, 2 024 9:17am Gastroesophageal reflux 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 acute July 9:17am Lumbar spondylosis acute Novemb er 2023 9:17am Primary insomnia acute August 07, 2024 9:17am Recurrent major depressive disorder, in full remission acute August 07 2 024 9:17am [facility] Work Phone: [phone]) 843-553205-28-2024 Hospital Discharge instructions Patient Education 02/20/2024 16:06:08 Dietary Guidelines [...] about 300 mg of calcium at each meal.Foods that contain 200 500 mg of calcium a serving include: ?8 oz (237 mL) of milk, djdzoyy-xfdkbbejeyld-sxrpt milk, and calcium- fortifiedfruit juice. Calcium-fortified means that calcium has been [...] the table and allow each person to addtheir own salt to taste. Use vegetable protein, such as beans, textured vegetable protein (TVP), or tofu, instead of meat inpasta, casseroles, and soups. Meal planning Eat less salt, if told by your dietitian. To do this: ?Avoid eating processed or pre-made food. ?Avoid eating fast food. Eat less animal protein, including cheese, meat, poultry, or fish, if told by your dietitian. To dothis: ?Limit the number of times you have meat, poultry, fish, or cheese each week. Eat a diet free of meat at least 2 days a week. ?Eat only one serving each day of meat, poultry, fish, or seafood. ?When you prepare animal proteins, cut pieces into small portion sizes. For most meat and fish, oneserving is about the size of the palm [...] ?Spinach (cooked), rhubarb, beets, sweet potatoes, and [place]ym[place] chard. ?Peanuts. ?Potato chips, citizen of [place] fries, and baked potatoes with skin on. ?Nuts and nut products. ?Chocolate. If you regularly take a diuretic medicine, make sure to eat at least 1 or 2 servings of fruits or vegetables that are high in potassium each day. These include: ?Avocado. ?Banana. ?[place], prune, carrot, or tomato juice. ?Baked potato. [...] magnesium, fish oil, or vitamin B6. Take fnuo-rkn-zxsporc and prescription medicines only as told by [...] Casseroles. Pizza. Lasagna. Frozen meals. Potato chips. [place] fries. The items listed above may not be a complete list of foods and beverages you should limit. Contact a dietitian for more information. What foods should I avoid? Talk to your dietitian about specific foods you should avoid based on the type of kidney stones youhave and your overall health. Fruits Grapefruit. The item listed above may not be a complete list of foods and beverages you should avoid. Contact adietitian for more information. Summary Kidney stones are [...] provider. Document Revised: 12/22/2022 Document Reviewed: 12/22/2022 [employer] Patient Education 2022 [place]. 02/20/2024 16:06:04 Kidney Stones, Hjhr-ea-Hirv Kidney Stones Kidney stones are rock-like masses [...] Follow these instructions at home: Medicines Take aukd-cwg-cxysjyl and prescription medicines only as told by [...] provider. Document Revised: 05/16/2022 Document Reviewed: 05/16/2022 [employer] Patient Education 2022 [place]. [facility] 01-16-2024 Evaluation note* Encounter Date Diagnosis Assessment Notes Treatment Notes Treatment Clinical Notes Sep, COVID-19 (ICD-10 - U07.1) [facility] Other 01-15-2024 Evaluation note* Encounter Date Diagnosis [...] interruption. Instructed to avoid d/c meds abruptly [facility] Other 12-26-2023 Evaluation note* Encounter Date Diagnosis [...] needed - XR to r/o compression fx [facility] Other 12-26-2023 Evaluation note* Encounter Date Diagnosis [...] needed - XR to r/o compression fx [facility] Other 12-20-2023 Evaluation note* Encounter Date Diagnosis Assessment Notes Treatment Notes Treatment Clinical Notes Aug, Nontoxic single thyroid nodule (ICD-10 - E04.1) Serial US w/ stable size and appearance. Referred to ENT w/ no further scans recommended. [facility] Other 10-25-2023 Evaluation note* Encounter Date Diagnosis [...] Amlodipine to 5mg qd while taking Paxlovid [facility] Other 07-17-2023 Evaluation note* Encounter Date Diagnosis [...] SBE and yearly mammogram - due in [facility] Other 05-03-2023 Evaluation note* Encounter Date Diagnosis [...] pneumonia Due for COVID booster and Shingrix [facility] Other 03-14-2023 Evaluation note* Encounter Date Diagnosis [...] or drinking prior to bedtime. Continue PPI [facility] Other 10-19-2022 Hospital Discharge instructions Patient Education 07/13/2022 13:30:11 Kidney Stones, Imnb-hj-Mtng Kidney Stones Kidney stones are rock-like masses [...] Follow these instructions at home: Medicines Take iczn-bzf-wvsvbkk and prescription medicines only as told by [...] 02/27/2009 Document Revised: 01/28/2020 Document Reviewed: 01/28/2020 [employer] Patient Education 2019 [employer]. Follow Up Care 10/18/2021 12:21:40 With:SVITLANA IBARRA, NOE Anderson, URL Address: [address] [place] [address]. [place] [address] [phone] When: Unknown [facility] 10-19-2022 Evaluation + Plan note Future Scheduled Tests Laboratory* Basic Metabolic Panel 07/13/22 [facility] evaluation + Plan note Future Appointments Appointment Date:02/24/2025 09:15:00 AM Scheduled Provider:Enrique VÁSQUEZ MD Location:[facility] Appointment Type:URO Office Visit [facility] evaluation + Plan note Future Appointments Appointment Date:02/24/2025 09:15:00 AM Scheduled Provider:Enrique VÁSQUEZ MD Location:[facility] Appointment Type:URO Office Visit Diagnostic Tests Pending * [facility] Information[facility] [employer] [facility] Other Evaluation note* Diagnosis Onset Date Resolution Status Plantar fasciitis of right foot noneactive Right foot pain noneactive [facility] Work Phone: Evaluation note* Diagnosis Onset Date Resolution Status Plantar fasciitis of right foot noneactive Right foot pain noneactive Essential (primary) hypertension acute Osteoporosis acute Avulsion fracture of metatarsal bone of right foot noneactive [facility] Work Phone: Evaluation note* Diagnosis Onset Date Resolution Status Plantar fasciitis of right foot noneactive Right foot pain noneactive Osteoporosis acute Avulsion fracture of metatarsal bone of right foot noneactive [facility] Work Phone: Evaluation note* Diagnosis Onset Date Resolution Status IBS (irritable bowel syndrome) acute Low back pain acute Elevated cholesterol acute Essential (primary) hypertension acute Gastroesophageal reflux dise ase with esophagitis without hemorrhage acute Lumbar spondylosis acute Osteoporosis acute Primary insomnia acute Recurrent major depressive d isorder, in full remission acute Screening mammogram for breast cancer noneactive [facility] Work Phone: Evaluation note* Diagnosis Onset Date Resolution Status IBS (irritable bowel syndrome) acute Low back pain acute Elevated cholesterol acute Essential (primary) hypertension acute Gastroesophageal reflux dise ase with esophagitis without hemorrhage acute Lumbar spondylosis acute Primary insomnia acute Recurrent major depressive d isorder, in full remission acute Screening mammogram for breast cancer noneactive Wellness examination noneact betsy [facility] Work Phone: Evaluation noteNo assessment information available [facility] Work Phone: History general Narrative - [...] ASPIRATION, NODULE, THYROID 2019 Surgical History COLONOSCOPY 2019 Surgical History GENEVA/BSO 2009 Hospitalization History SEE SURGICAL HX [facility] Other History general Narrative - ReportedNort [employer] Other Hospital course Narrative No data available for this section [facility] Hospital Discharge instructions No data available for this section [facility] No data available for this section [facility] reason for referral (narrative)* Reason Referral for treatme nt of chronic low back pain Diagnosis 1 Acute bilateral low back pain without sciatica (M54.50) Diagnosis 2 Lumbar spondylosis ( M47.816) Referral Organization [facility] Becca rob Referring Provider First Name Segun Referring Provider Last Name Sancho Referring Provider Specialty Internal Me dicine Referred Organization [facility] Referred Address [address], [place],[address] Referred Provider Specialty Pain Medicin e Referral [...] for injections. Clinical Notes Include XR results [email or web address] [facility] [employer] Other Summary Purpose Family History Relationship Condition Age at Onset Recorded Date/T david father Unknown Heart disease Unknown Not Specified Unknown Hypertension Unknown Malignant neoplasm Unknown Relationship Condition Age at Onset Recorded Date/T david father Unknown Heart disease Unknown mother Unknown Hypertension Unknown Malignant neoplasm Unknown Advance Directives Advance Directive Response Recorded Date/ Time Advance Directives No December 17 3:34pm Advance Directive Response Recorded Date/ Time Advance Directives No December 17 2:34pm Chief Complaint and Reason for Visit Chief [...] full remission Screening mammogram for breast cancer Chief Complaint stomcah and bowel co ncerns wellness Reason for Visit IBS (irritable bowel syndrome) Low back pain Elevated cholesterol Essential (primary) hypertension Gastroesophageal reflux 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 Lumbar spondylosis Primary insomnia Recurrent major depressive disorder, in full remission Screening mammogram for breast cancer Wellness examination Chief Complaint rash on lower back Chief Complaint Admit Date rash on lower back July 26, 2024 8 :51am CC Adult Risk Stratification July 2:30pm routine care August 07, 2024 9:17am Reason for Visit Admit Date Allergic contact dermatitis due to cloth ing July 26, 2024 8:51am Chronic venous insufficiency of lower ex tremity July 26, 2024 8:51am Elevated cholesterol August 07, 2024 9:17am Essential (primary) hypertension Novembe r 2023 9:17am Gastroesophageal reflux dise ase with esophagitis without hemorrhage August 07, 2024 9:17am Lumbar spondylosis August 07, 2024 9:17am Primary insomnia August 07, 2024 9:17am Recurrent major depressive disorder, in full remission August 07, 2024 9:17am Additional Source Comments Patient Care team informatio n (unrecognized section and content) Team Status: Active Member Role Status Dates Segun Kingsley DO Primary Care Provider Active Team Status: Inactive Member Role Status Dates Segun Kingsley DO Primary Care Provide r, Attending Provider Active Start: July 26, 2024 End: July 26, 2024 Team Status: Active Member Role Status Dates Segun Kingsley DO Primary Care Provide r, Attending Provider Active Start: July 31, 2024 Team Status: Inactive Member Role Status Dates Segun Kingsley DO Primary Care Provide r, Attending Provider Active Start: August 07, 2024 End: August 07, 2024 Team Status: Active Member Role Status Dates Segun Kingsley DO Primary Care Provider Active Team Status: Active Member Role Status Dates Segun Kingsley DO Primary Care Provider Active Start: November 29, 2023 RICH Che Attending Provider Active Start : November 29, 2023 Team Status: Inactive Member Role Status Dates Segun Kingsley , DO Primary Care Provide r, Attending Provider Active Start: December 19, 2023 End: December 19, 2023 Team Status: Inactive Member Role Status Dates Segun Kingsley , DO Primary Care Provide r, Attending Provider Active Start: December 27, 2023 End: December 27, 2023 Team Status: Active Member Role Status Dates Segun Kingsley DO Primary Care Provider Active Start: February 08, 2024 Enrique Vásquez MD Attending Provider Active St art: February 08, 2024 Team Status: Inactive Member Role Status Dates Segun Kingsley , DO Primary Care Provide r, Attending Provider Active Start: February 20, 2024 End: February 20, 2024 Team Status: Inactive Member Role Status Dates Segun Kingsley DO Attending Provider Active Sta rt: October 09, 2023 End: October 09, 2023 Team Status: Inactive Member Role Status Dates Segun Kingsley , DO Primary Care Provide r, Attending Provider Active Start: April 15, 2024 End: April 15, 2024 Team Status: Active Member Role Status Dates Segun Kingsley DO Primary Care Provide r, Attending Provider Active Start: May 01, 2024 Team Status: Active Member Role Status Dates Segun Kingsley , DO Primary Care Provide r, Attending Provider Active Start: May 06, 2024 Team Status: Inactive Member Role Status Dates Segun Kingsley , DO Primary Care Provide r, Attending Provider Active Start: July 26, 2024 End: July 26, 2024 Team Status: Active Member Role Status Enedina Kingsley , DO Primary Care Provide r, Attending Provider Active Start: July 31, 2024 Team Status: Inactive Member Role Status Dates Segun Kingsley , DO Primary Care Provide r, Attending Provider Active Start: August 07, 2024 End: August 07, 2024 REASON FOR VISIT (unrecogniz ed section and content) 3 month Follow upPossible Sp ider [id number] COVID +No Informationback painback painXR results6 monthCOVID + INFORMATION SOURCE (unrecogn ized section and content) DATE CREATED AUTHOR 01/27/2023 [facility] DATE CREATED AUTHOR AUTHOR'S ORGANIZ ATION 09/14/2023 [facility] EPIC DATE CREATED AUTHOR AUTHOR'S ORGANIZ ATION 02/28/2024 [facility] DATE CREATED AUTHOR AUTHOR'S ORGANIZ ATION 05/07/2024 [facility] DATE CREATED AUTHOR AUTHOR'S ORGANIZ ATION 05/14/2024 [facility] Goals (unrecognized section and content) Goals [...] BE BASED ON THE PRIMARY CLINICAL RECORDS. [facility] [employer] [facility]. provides no warranty or guarantee of the accuracy or completeness of information in this document.
[2024-09-24 12:50] LABS: Alanine Aminotransferase 43 U/L (14-59); Albumin Globulin Ratio 0.8; Albumin Level 3.5 g/dL (3.4-5.0); Alkaline Phosphatase 167 U/L (46-116); Amylase 44 U/L (25-115); Anion Gap 12.7; Aspartate Amino Transferase 29 U/L (15-37); BUN Creatinine Ratio 16.7; Bilirubin Total 0.4 mg/dL (0.2-1.0); Calcium 9.2 mg/dL (8.5-10.1); Carbon Dioxide 27.8 mmol/L (21.0-32.0); Chloride 102 mmol/L (98-107); Estimated GFR (African America >60 (>=60 mL/min/1.73m^2); Estimated GFR (Non-African Ame >60 (>=60 mL/min/1.73m^2); Globulin 4.2 g/dL; Glucose 100 mg/dL (74-106); Potassium 3.5 mmol/L (3.5-5.1); Sodium 139 mmol/L (136-145); Total Protein 7.7 g/dL (6.4-8.2)
[2024-09-24 13:59] LABS: Basophils Percent Auto 0.4 % (0.2-2.0); Eosinophils Absolute Auto 0.2 10^3/uL (0.0-0.7); Eosinophils Percent Auto 2.3 % (0.9-7.0); Hematocrit 42.7 % (36.0-48.0); Hemoglobin 13.6 g/dL (12.0-16.0); Immature Granulocytes Abs Auto 0.03 10^3/uL (0.00-0.03); Immature Granulocytes Pct Auto 0.3 % (0.0-0.5); Lymphocytes Absolute Auto 2.2 10^3/uL (1.2-3.8); Lymphocytes Percent Auto 21.9 % (20.5-60.0); Mean Corpuscular HGB Conc 31.9 g/dL (29.9-35.2); Mean Corpuscular Volume 84.9 fL (81.0-99.0); Monocytes Absolute Auto 0.6 10^3/uL (0.3-0.8); Monocytes Percent Auto 5.5 % (1.7-12.0); Neutrophils Absolute Auto 6.9 10^3/uL (1.4-6.5); Neutrophils Percent Auto 69.6 % (43.0-75.0); Platelet Count 375 10^3/uL (150-450); Red Blood Count 5.03 10^6/uL (4.20-5.40); Red Cell Distribution Width 14.3 % (11.0-15.0); White Blood Count 9.9 10^3/uL (4.0-11.0)
== END 2024-09-24 12:04 | disposition home or self-care (01) ==
PROVIDERS: PCP Internal Medicine; Visit Provider Internal Medicine
DX: R10.9 Unspecified abdominal pain (principal); R53.83 Other fatigue
CPT/HCPCS: 36415; 80053; 82150; 85025

== ENCOUNTER 2025-02-24 13:38 | Outpatient (OUT) | payer OTHER, SELFPAY ==
--- OUTSIDE RECORDS SUMMARY | 2025-02-24 13:46 | XMS_ITS | Encounter Summary ---
Author Organization [facility] Address [address] [facility] [place] [address] Care Team Providers Care Operating System Programmer Name Role Phone Segun Kingsley DO Primary Care Provider [phone] Encounter Details Date Type Department Care Team (Late st Contact Info) Description 09/07/2023 Abstract [facility] [address] [place] [address] Latasha Dunaway RN [address] [place], [place] [id number] Social History Tobacco Use Types Packs/Day Years Used Date Smoking Tobacco: Never Smokeless Tobacco: Never Tobacco Cessation:Counseling Given: Not Answered Alcohol Use Standard Drinks/Week Comments Not Currently 0 (1 standard drink = 0.6 oz pur e alcohol) Comments Unknown Sex and Gender Information Value Date Recorded Sex Assigned at Not on file Legal Sex Female 6:37 PM EDT Gender Identity Not on file Sexual Orientation Not on file documented as of this encounter Plan of Treatment Not on file documented as of this encounter Visit Diagnoses Not on filedocumented in this encounter Care Teams Operating System Programmer Relationship Specialty Start Date End Date Segun Kingsley DO PCP - General Internal Medicine 08/01/23 documented as of this encounter
--- OUTSIDE RECORDS SUMMARY | 2025-02-24 13:47 | XMS_ITS | Encounter Summary ---
Author Organization [facility] Address [address] [place] [address] Care Team Providers Care Clam Picker Name Role Phone Segun Kingsley DO Primary Care Provider [phone] Encounter Details Date Type Department Care Team (Late st Contact Info) Description 09/05/2023 Clinisync Result Encounter [facility] Department Unsolicited Eloina Peña MD [address] [address] Social History Tobacco Use Types Packs/Day Years Used Date Smoking Tobacco: Never Assessed Comments Unknown Sex and Gender Information Value Date Recorded Sex Assigned at Not on file Legal Sex Female 6:37 PM EDT Gender Identity Not on file Sexual Orientation Not on file documented as of this encounter Plan of Treatment Not on file documented as of this encounter Procedures Procedure Name Priority Date/Time Associated Diagnosis Comments US THYROID 09/05/2023 1:38 PM EST documented in this encounter Results * US thyroid (09/05/2023 1:38 PM EST) Anatomical Region Laterality Modality Head, Neck Ultrasound 09/05/2023 1:38 PM EST Narrative 09/05/2023 1:41 PM EST [facility] [address] [place] [address] Ultrasound Report Signed Patient: ELBA LEE MR#: [id number] : 1955 Acct:[id number] Age/Sex: 68 / F ADM Date: 09/05/23 Loc: US Attending Dr: Eloina Peña M.D. Ordering Physician: Eloina Peña M.D. Date of Service: 09/05/23 Procedure(s): US thyroid Accession Number(s): [id number] cc: Segun Kingsley D.O.; Eloina Peña M.D. [address] [address] Patient Name: ELBA LEE MRN: [id number] date: 1955 Sex: F Assigned Patient Location: US Current Patient Location: US Accession/Order Number: [id number] Exam Date: 09/05/2023 12:15 Report Date: 09/05/2023 13:38 At the request of: ELOINA PEÑA Procedure: US thyroid EXAM: US thyroid HISTORY: Thyroid Nodule COMPARISON: None. TECHNIQUE: Multiple sonographic images of the thyroid gland were obtained, supplemented with Doppler. FINDINGS: The right lobe measures 4.8 x 1.3 x 2.0 cm. Heterogeneous echoes are noted throughout. Very small cysts are scattered throughout. Along the inferior aspect there is a cyst measuring 0.4 x 0.5 x 0.3 cm. The left lobe measures 4.6 x 1.6 x 1.6 cm. Heterogeneous echoes are noted throughout. Very small cysts are noted. In the superior aspect there is a mixed nodule measuring 1.7 x 1.3 x 1.1 cm, with slightly irregular margins. In the inferior aspect there is a small cyst measuring 0.5 x 0.5 x 0.3 cm. The isthmus measures 2 mm in thickness. There is no evidence of a focal mass or abnormal fluid collection surrounding the gland. US/US thyroid IMPRESSION: The thyroid gland is not enlarged. Multiple very small cysts are scattered throughout each lobe. Additional identified cysts are seen in the inferior aspect of the right lobe and the inferior aspect of the left lobe, and these are considered TI RADS 2. The mixed nodule in the superior aspect of the left lobe is considered TI RAD 4. Biopsy is not recommended at this time. Direct comparison with a previous study may be helpful. A follow-up study in 12 months recommended. Electronically authenticated by: NEHEMIAS ESCOBAR Date: 09/05/2023 13:38 Dictated By: Nehemias Escobar M.D. Signed By: 09/05/23 1344 DD/ 1338 TD/TT: Tube Laser Operator: Procedure Note Radiology, Radiologist, MD - 09/05/[address] [address] Ultrasound Report Signed Patient: JENNIFER LEE#: [id number] : 1955cct:[id number] Age/Sex: 68 / FADM Date: 09/05/23 Loc: US Attending Dr: Eloina Peña M.D. Ordering Physician: Eloina Peña M.D. Date of Service: 09/05/23 Procedure(s): US thyroid Accession Number(s): [id number] cc: Segun Kingsley D.O.; Eloina Peña M.D. The [address] [address] Patient Name: ELBA LEE MRN: [id number] date: 1955 Sex: F Assigned Patient Location: US Current Patient Location: US Accession/Order Number: [id number] Exam Date: 09/05/2023 12:15 Report Date: 09/05/2023 13:38 At the request of: ELOINA PEÑA Procedure: US thyroid EXAM: US thyroid HISTORY: Thyroid Nodule COMPARISON: None. TECHNIQUE: Multiple sonographic images of the thyroid gland were obtained, supplemented with Doppler. FINDINGS: The right lobe measures 4.8 x 1.3 x 2.0 cm. Heterogeneous echoesare noted throughout. Very small cysts are scattered throughout. Along the inferior aspect there is a cyst measuring 0.4 x 0.5 x 0.3 cm. The left lobe measures 4.6 x 1.6 x 1.6 cm. Heterogeneous echoes are noted throughout. Very small cysts are noted. In the superior aspect there is a mixed nodule measuring 1.7 x 1.3 x 1.1 cm, with slightly irregular margins. Inthe inferior aspect there is a small cyst measuring 0.5 x 0.5 x 0.3 cm. The isthmus measures 2 mm in thickness. There is no evidence of a focalmass or abnormal fluid collection surrounding the gland. US/US thyroid IMPRESSION: The thyroid gland is not enlarged. Multiple very small cysts are scattered throughout each lobe. Additional identified cysts are seen in the inferior aspect of the right lobe and the inferior aspect of the left lobe, andthese are considered TI RADS 2. The mixed nodule in the superior aspect of the left lobe is considered TIRAD 4. Biopsy is not recommended at this time. Direct comparison with a previous study may be helpful. A follow-up study in 12 months recommended. Electronically authenticated by: NEHEMIAS ESCOBAR Date: 09/05/2023 13:38 Dictated By: Nehemias Escobar M.D. Signed By:09/05/23 1341 DD/ 1338 TD/TT: Tube Laser Operator: us Eloina Peña MD IMG US PROCEDURES Final Resul t documented in this encounter Visit Diagnoses Not on filedocumented in this encounter Care Teams Clam Picker Relationship Specialty Start Date End Date Segun Kingsley DO PCP - General Internal Medicine 08/01/23 documented as of this encounter
--- OUTSIDE RECORDS SUMMARY | 2025-02-24 13:47 | XMS_ITS | Clinical Summary ---
Author Organization [facility] Healthcare Address [address] [place] [address] Care Team Providers Care Missing Persons Investigator Name Role Phone Segun Kingsley DO Primary Care Provider [phone] Allergies No known active allergies Medications amLODIPine (Norvasc) 5 MG tablet Take 5 mg by mouth 1 (one) time each day at the same time Active traMADol ER (Conzip) 100 MG 24 hr capsule traMADol HCl Act betsy fexofenadine (Guillermina Allergy) 180 MG tablet Take 180 mg by mouth in the morning. Active temazepam (Restoril) 15 MG capsule Take 15 mg by mouth 1 (one) time each day at the same time Active Active Problems Problem Noted Date Diagnosed Date Thyroid nodule 09/07/2023 Hypertension 09/07/2023 Depression with anxiety 09/07/2023 Anemia 09/07/2023 Chronic back pain 09/07/2023 Irritable bowel syndrome with constipation 09/07 Lumbar spondylosis 09/07/2023 Family History Medical History Relation Name Comments Heart failure Father Cancer Mother Hypertension Mother Heart failure Paternal Grandfather Relation Name Status Comments Father Mother Paternal Grandfather Social History Tobacco Use Types Packs/Day Years [...] on file Sexual Orientation Not on file Last Filed Vital Signs Vital Sign Reading Time Taken Comments Blood Pressure 118/69 09/13/2023 11:08 AM EST Pulse - - Temperature - - Respiratory Rate - - Oxygen Saturation - - Inhaled Oxygen Concentration - - Weight 68.5 kg (151 lb) 09/14/2022 12:00 PM EST Height 162.6 cm (5' 4 ) 09/14/2022 12:00 PM EST Body Mass Index 25.92 09/14/2022 12:00 PM EST Plan of Treatment Health Maintenance Due Date Last Done Comments CT Colonography 1955 Colonoscopy 1955 Colorectal Cancer Screening 1955 FIT-DNA 1955 FIT 1955 FOBT 1955 Sigmoidoscopy 1955 Mammogram 1994 Pneumococcal Vaccine: 65+ Ye ars (2 of 2 - PPSV23) 04/01/2023 04/01/2022 Influenza Vaccine (Season Ended) 2025 08/10/20 20, 07/25/2018 Insurance [employer] Care Teams Missing Persons Investigator Relationship Specialty Start Date End Date Segun Kingsley DO PCP - General Internal Medicine 08/01/23
--- NOTE | 2025-02-24 14:00 | XR_ITS ---
The [address] [address] Patient Name: ELBA CORONA MRN: [id number] date: 1955 Sex: F Assigned Patient Location: [facility] Current Patient Location: [facility] Accession/Order Number: [id number] Exam Date: 02/24/2025 14:49 Report Date: 02/24/2025 14:51 At the request of: THELMA VIDAL MD Procedure: XR abdomen 1V Single view of abdomen COMPARISON: 02/08/2024 HISTORY: Routine checkup for kidney stones THORAX: Lung bases unremarkable. FREE AIR: Supine position limits assessment BOWEL: No gaseous intestinal distention. STOOL: Moderate burden of stool overlying the kidneys RENAL STONES: No significant stones present. VASCULAR CALCIFICATIONS: Unremarkable SOFT TISSUE: Unremarkable BONES: Lumbar degeneration POSTSURGICAL CHANGES: None XR/XR abdomen 1V IMPRESSION: Moderate burden of stool overlying the kidneys. No visible stones. Impression dictated by: Victor Manuel Trejo M.D. 02/24/2025 2:51 PM Dictation Location: [facility] Electronically authenticated by: [id number] Y Date: 02/24/2025 14:51
== END 2025-02-24 13:39 | disposition home or self-care (01) ==
PROVIDERS: PCP Internal Medicine; Visit Provider Urology
DX: N20.0 Calculus of kidney (principal)
CPT/HCPCS: 74018

== ENCOUNTER 2025-03-13 08:26 | Outpatient (OUT) | payer OTHER, SELFPAY ==
--- NOTE | 2025-03-13 08:30 | XR_ITS ---
The [address] [address] Patient Name: MIK CORONA MRN: [id number] date: 1955 Sex: F Assigned Patient Location: [facility] Current Patient Location: [facility] Accession/Order Number: [id number] Exam Date: 03/13/2025 09:13 Report Date: 03/13/2025 09:17 At the request of: RODRIGO MONTESINOS NP Procedure: XR hip LT min 2V CLINICAL DATA: Left hip and upper thigh pain for the past month. No injury. SI JOINTS - 3 views COMPARISON: 02/24/2025 AP and both oblique views of the SI joints were obtained. There are no acute fractures or dislocation. The SI joints are symmetric. There is no significant degenerative change or evidence of ankylosis. No soft tissue abnormalities are seen. XR/XR sacroiliac joint TUSHAR IMPRESSION: NO ACUTE FINDINGS. LEFT HIP - 2 views COMPARISON: 02/08/2024 KUB AP and frog-lateral views were obtained. There is no acute fracture or dislocation. The hip joint space is maintained. No hypertrophy is seen. No soft tissue abnormalities are noted. IMPRESSION: NO ACUTE BONY FINDINGS. Impression dictated by: Maria Josue M.D. 03/13/2025 9:17 AM Dictation Location: [place] [address] Electronically authenticated by: [id number] Y Date: 03/13/2025 09:17
--- NOTE | 2025-03-13 08:30 | XR_ITS ---
The [address] [address] Patient Name: MIK CORONA MRN: [id number] date: 1955 Sex: F Assigned Patient Location: [facility] Current Patient Location: [facility] Accession/Order Number: [id number] Exam Date: 03/13/2025 09:13 Report Date: 03/13/2025 09:17 At the request of: RODRIGO MONTESINOS NP Procedure: XR hip LT min 2V CLINICAL DATA: Left hip and upper thigh pain for the past month. No injury. SI JOINTS - 3 views COMPARISON: 02/24/2025 AP and both oblique views of the SI joints were obtained. There are no acute fractures or dislocation. The SI joints are symmetric. There is no significant degenerative change or evidence of ankylosis. No soft tissue abnormalities are seen. XR/XR hip LT min 2V IMPRESSION: NO ACUTE FINDINGS. LEFT HIP - 2 views COMPARISON: 02/08/2024 KUB AP and frog-lateral views were obtained. There is no acute fracture or dislocation. The hip joint space is maintained. No hypertrophy is seen. No soft tissue abnormalities are noted. IMPRESSION: NO ACUTE BONY FINDINGS. Impression dictated by: Maria Josue M.D. 03/13/2025 9:17 AM Dictation Location: [place] [address] Electronically authenticated by: [id number] Y Date: 03/13/2025 09:17
--- OUTSIDE RECORDS SUMMARY | 2025-03-13 08:31 | XMS_ITS | Encounter Summary ---
Author Organization [facility] Address [address] [place] [address] Care Team Providers Care Culinary Intern Name Role Phone Segun Kingsley DO Primary Care Provider [phone] Encounter Details Date Type Department Care Team (Late st Contact Info) Description 09/05/2023 Clinisync Result Encounter [facility] External Department Unsolicited Eloina Peña MD [address] [address] Social History Tobacco Use Types Packs/Day Years [...] EST Narrative 09/05/2023 1:41 PM EST The [facility] [address] [place] [address] Ultrasound Report Signed Patient: ELBA LEE MR#: [id number] : 1955 Acct:[id number] Age/Sex: 68 / F ADM Date: 09/05/23 Loc: US Attending Dr: Eloina Peña M.D. Ordering Physician: Eloina Peña M.D. Date of Service: 09/05/23 Procedure(s): US thyroid Accession Number(s): [id number] cc: Segun Kingsley D.O.; Eloina Peña M.D. [address] [address] Patient Name: ELBA LEE MRN: [id number] date: 1955 Sex: F Assigned Patient Location: US Current Patient Location: [place] Accession/Order Number: [id number] Exam Date: 09/05/2023 12:15 Report Date: 09/05/2023 [...] By: Nehemias Escobar M.D. Signed By: 09/05/23 1343 DD/ 1338 TD/TT: Rail Car Mechanic: Procedure Note Radiology, Radiologist, MD - 09/05/[address] [address] Ultrasound Report Signed Patient: JENNIFER LEE#: [id number] : 1955cct:[id number] Age/Sex: 68 / FADM Date: 09/05/23 Loc: US Attending Dr: Eloina Peña M.D. Ordering Physician: Eloina Peña M.D. Date of Service: 09/05/23 Procedure(s): US thyroid Accession Number(s): [id number] cc: Segun Kingsley D.O.; Eloina Peña M.D. The [address] [address] Patient Name: ELBA LEE MRN: [id number] date: 1955 Sex: F Assigned Patient Location: US Current Patient Location: US Accession/Order Number: [id number] Exam Date: 09/05/2023 12:15 Report Date: 09/05/2023 [...] M.D. Signed By:09/05/23 1341 DD/ 1338 TD/TT: Rail Car Mechanic: us Eloina Peña MD IMG US PROCEDURES Final Resul t documented in this encounter Visit Diagnoses Not on filedocumented in this encounter Care Teams Culinary Intern Relationship Specialty Start Date End Date Segun Kingsley DO PCP - General Internal Medicine 08/01/23 documented as of this encounter
--- OUTSIDE RECORDS SUMMARY | 2025-03-13 08:31 | XMS_ITS | Clinical Summary ---
Author Organization [facility] Healthcare Address [address] [place] [address] Care Team Providers Care Hog Driver Name Role Phone Segun Kingsley DO Primary Care Provider Allergies No known active allergies Medications amLODIPine [...] 20, 07/25/2018 Insurance [employer] Care Teams Hog Driver Relationship Specialty Start Date End Date Segun Kingsley DO PCP - General Internal Medicine 08/01/23
--- OUTSIDE RECORDS SUMMARY | 2025-03-13 08:31 | XMS_ITS | Encounter Summary ---
Author Organization [facility] Address [address] [facility] [place] [address] Care Team Providers Care Mirror Polisher Name Role Phone Segun Kingsley DO Primary Care Provider [phone] Encounter Details Date Type Department Care Team (Late st Contact Info) Description 09/07/2023 Abstract [facility] [address] [place] [address] Latasha Dunaway RN [address] [place], [place] [id number] Social History Tobacco Use Types Packs/Day Years [...] on filedocumented in this encounter Care Teams Mirror Polisher Relationship Specialty Start Date End Date Segun Kingsley DO PCP - General Internal Medicine 08/01/23 documented as of this encounter
--- OUTSIDE RECORDS SUMMARY | 2025-03-13 08:41 | XMS_ITS | CCD ---
Author Organization [facility] CliniSymd Care Team Providers Care Cost Control Specialist Name Role Phone SEGUN KINGSLEY Primary Care Physician Segun Kingsley VÁSQUEZ ., DR RENEE Attending [...] Unavailable WEST, DR EVERETT Salazar Consulting Unavailable Zieber, Jackson [...] Unavailable VÁSQUEZ ., DR RENEE Admitting Unavailable VÁSUQEZ ., DR RENEE Attending Unavailable BALL, DR GALVEZ Primary Care Unavailable BALL, DR GALVEZ Attending Unavailable BALL, DR GALVEZ Consulting Unavailable BALL, DR GALVEZ Primary Care Unavailable BALL, DR GALVEZ Admitting Unavailable BALL, DR GALVEZ Attending Unavailable BALL, DR GALVEZ Consulting Unavailable BALL, DR GALVEZ Primary Care Unavailable BALL, DR GALVEZ Admitting Unavailable BALL, DR GLAVEZ Primary Care Unavailable PERNELL ., DEEPTI Admitting Unavailable PERNELL ., DEEPTI Attending Unavailable AWAIS, DR EVERETT Salazar Consulting Unavailable WILFRIDO .STEPHAN Consulting Unavailable TIMMIS, ELOINA H Attending Unavailable SEGUN KINGSLEY Referring Unavailable Segun Kingsley Attending Unavailable Sancho, Segun Admitting Unavailable Enrique VÁSQUEZ Attending Unavailable Enrique VÁSQUEZ Attending Unavailable Allergies Allergy Classification Reported Allergen(s) Allergy Type Date of Onset Reaction(s) Facility (2 sources) patient allergy list reviewed by nurse or physicia Propensity to adverse reactions 5 Comment:Done Bag Borrow or Steal Other (2 sources) No Known Medication Allergies; Translations: [No Known Medication Allergies] Propensity to adverse reactions (disorder) [facility] Repository Medications Current Medications Medication Drug Class(es) Dates Sig (Normalized) Sig (Original) acetaminophen 500 mg oral tablet (4 sources) Start: 05-05-2021 take 500 mg by mouth twice daily Tylenol 500 mg, Oral, BID Start Date: 05/05/21 Status: Ordered Repeat number: 1 [id number] 60 actuat albuterol 0.09 mg/actuat metered dose [...] Oral, Daily Start Date: 05/05/21 Status: Ordered Repeat number: 1 take 1 tablet by levon th once daily atorvastatin 40 mg oral tablet (20 sources) HMG-CoA Reductase Inhibitor Start: 11-21-2024 take 1 tablet by mouth once daily in the evening Atorvastatin 40 mg tablet Active 0 .ROUTE .COMPLEX November 21, 2024 10:47pm TAKE ONE TABLET BY MOUTH ONCE DAILY [...] DAILY IN THE EVENING Start: 05-05-2021 End: 11-21-2024 take 1 tablet by mouth once daily Atorvastatin 40 mg tablet Discontinued 40 MG PO Daily April 15, 2024 2:43pm November 21, 2024 10:47pm azelastine hydrochloride 0.137 mg/actuat metered dose nasal [...] Active calcium carbonate 1500 mg oral tablet (4 sources) Start: 05-05-2021 take 1 tablet by mouth twice daily calcium (as carbonate) 600 mg oral tablet 600 mg = 1 tab(s), Oral, BID Start Date: 05/05/21 Status: Ordered Repeat number: 1 FLUoxetine 40 mg oral capsule (20 sources) Serotonin Reuptake Inhibitor Start: 09-26-2024 take 1 capsule by mouth once daily Fluoxetine 40 mg capsule Active 0 .ROUTE .COMPLEX September 26, 2024 2:55pm TAKE ONE CAPSULE BY MOUTH ONCE DAILY Start: 03-29-2024 End: 04-15-2024 take 1 capsule by mouth once daily Fluoxetine 40 mg capsule Discontinued 0 .ROUTE .COMPLEX March 29, 2024 8:44am April 15, 2024 2:47pm TAKE ONE CAPSULE BY MOUTH ONCE DAILY Start: 05-05-2021 End: 09-26-2024 take 1 capsule by mouth once daily Fluoxetine 40 mg capsule Discontinued 40 MG PO Daily April 15, 2024 2:44pm September 26, 2024 2:55pm fluticasone propionate 0.05 mg/actuat metered dose nasal spray (12 sources) Corticosteroid Start: 10-26-2019 take 1 spray(s) nasa l route once daily Start: 10-26-2019 take 1 spray(s) nasa l route once daily Fluticasone Propionate 50 MCG/ACT 1 spray in each nostril Nasally Once a day for 21 days Oct, Not-Taking Start: 10-26-2019 hydroCHLOROthiazide 12.5 mg oral capsule (20 sources) Thiazide Diuretic Start: 03-03-2025 End: 02-26-2026 take 1 capsule by mouth once daily hydrochlorothiazide 12.5 mg Cap 12.5 mg = 1 cap(s), Oral, Daily, X 90 day(s), # 90 cap(s), Refills(s) 3, Pharmacy: [id number], 163, cm, 03/03/25 11:35:00 EDT, Height/Length Dosing, 67, kg, 03/03/25 11:35:00 EDT, Weight Dosing Start Date: 03/03/25 Stop Date: 02/26/26 Status: Ordered Quantity: 90.0 Unit: cap(s) Repeat number: 4 Start: 04-15-2024 Hydrochlorothi azide 25 mg tablet Active 12.5 MG PO Daily April 15, 2024 2:42pm Start: 04-15-2024 take 12.5 mg by mout h once daily Hydrochlorothiazide Active 12.5 MG PO Daily April 15, 2024 2:42pm Start: 06-08-2022 End: 04-15-2024 take 1 tablet by mouth once daily Hydrochlorothiazide 25 mg tablet Discontinued 25 MG PO Daily December 18, 2023 12:00am April 15, 2024 2:47pm Lisinopril (12 sources) Angiotensin Converting Enzyme Inhibitor Lisinopril Not-T aking/PRN Lisinopril Not-T aking methylPREDNISolone 4 mg oral tablet (12 sources) Corticosteroid Start: 10-26-2019 Start: 10-26-2019 omeprazole 40 mg delayed release oral capsule (20 sources) Proton Pump Inhibitor Start: 10-23-2024 take 1 capsule by mouth once daily at breakfast Omeprazole 40 mg capsule,delayed release(DR/EC) Active 0 .ROUTE .COMPLEX October 23, 2024 7:04pm TAKE ONE CAPSULE BY MOUTH DAILY ON AN EMPTY STOMACH, FOLLOWED IN 30 MINS BY BREAKFAST Start: 10-18-2021 End: 10-23-2024 take 1 mg by mouth once daily omeprazole 40 mg Cap-DR mg cap(s), Oral, Daily, Refills(s) 0 Start Date: 10/18/21 Status: Ordered Repeat number: 1 paxlovid (300/100) 20 x 150 mg & [...] Potassium Bicarb And Chloride 20 mEq packet (3 sources) Start: 12-18-2023 take 20 mEq by mouth once daily Potassium Bicarb And Chloride 20 mEq packet Active 1 PACKET PO Daily December 18, 2023 12:00am Start: 12-18-2023 take 20 mEq by mouth once shantelle y Potassium Bicarb And Chloride 20 mEq packet Active 1 PACKET PO Daily December 17, 2023 11:00pm temazepam 15 mg oral capsule (20 sources) Benzodiazepine Start: 05-05-2021 End: 09-06-2024 take 1 capsule by mouth once daily at bedtime temazepam 15 mg Cap 15 mg = 1 cap(s), Oral, Once a day (at bedtime) Start Date: 05/05/21 Status: Ordered Repeat number: 1 tiZANidine (12 sources) Central alpha-2 Adrenergic Agonist tiZANidine HCl N ot-Taking/PRN tiZANidine HCl N ot-Taking traMADol (12 sources) Opioid Agonist traMADol HCl Not -Taking/PRN traMADol HCl Not -Taking Triamcinolone (20 sources) Corticosteroid Start: 07-26-2024 Triamcinolone Acetonide 0.5 % ointment Active 1 APPLIC TOPICAL Twice daily 45 July 26, 2024 12:00am Start: 07-26-2024 Triamcinolone Acetonide 0.5 % ointment Active 1 APPLIC TOPICAL Twice daily 45 July 25, 2024 11:00pm Start: 07-26-2024 Triamcinolone Acetonide Active 1 APPLIC TOPICAL Twice daily 45 July 26, 2024 12:00am Start: 12-18-2023 Triamcinolone Acetonide 0.025 % cream Active 1 APPLIC TOPICAL Twice daily as needed December 18, 2023 12:00am Triamcinolone Ac etonide 0.025 % 1 application Externally twice daily as needed for 14 days Active Vitamin D3 (4 sources) Start: 05-05-2021 Vitamin D3 1,0 00 International_Unit, Oral, Daily Start Date: 05/05/21 Status: Ordered Repeat number: 1 Start: 05-05-2021 Vitamin D3 1,0 00 International_Unit, Oral, Daily Start Date: 05/05/21 Status: Ordered {20 (nirmatrelvir 150 MG Ora l Tablet) / 10 (ritonavir 100 MG Oral Tablet) } Pack [Paxlovid 5-Day] (1 source) Start: 07-19-2023 Paxlovid (300/ 100) 20 x 150 MG & 10 x 100MG as directed Orally bid for 5 days Jun, Active Completed/Discontinued Medications Medication Drug Class(es) Dates Sig (Normalized) Sig (Original) potassium bicarbonate 25 meq effervescent oral tablet (4 sources) Start: 04-24-2024 End: 04-19-2025 take 1 tablet by mouth twice daily Klor-Con/EF 25 mEq oral tablet, effervescent 25 mEq = 1 tab(s), Oral, BID, X 90 day(s), # 180 tab(s), Refills(s) 3, [id number] 163, cm, 02/20/24 14:56:00 EDT, Height/Length Dosing, 68.1, kg, 02/20/24 14:56:00 EDT, Weight Dosing Start Date: 04/24/24 Stop Date: 04/19/25 Status: Ordered Quantity: 180.0 Unit: tab(s) Repeat number: 4 Start: 04-10-2023 take 1 tablet by [facility] twice daily Klor-Con/EF 25 mEq oral tablet, effervescent 25 mEq = 1 tab(s), Oral, BID, # 60 tab(s), Refills(s) 11, [id number], 163, cm, 02/13/23 14:27:00 EDT, Height/Length Dosing, 70, kg, 02/13/23 14:27:00 EDT, Weight Dosing Start Date: 04/10/23 Status: Ordered Start: 10-18-2021 take 1 tablet by [facility] twice daily Effer-K 25 mEq oral tablet, effervescent 25 mEq = 1 tab(s), Oral, BID, # 60 tab(s), Refills(s) 8, Pharmacy: [id number], 163, cm, 10/18/21 11:50:00 EST, Height/Length Dosing, 70, kg, 10/18/21 11:50:00 EST, Weight Dosing Start Date: 10/18/21 Status: Ordered predniSONE 20 mg oral tablet (4 sources) Start: 07-26-2024 End: 09-24-2024 Prednisone 20 mg tablet Discontinued 20 MG PO .COMPLEX 15 July 26, 2024 12:00am September 24, 2024 11:48am 20mg bid w/ food x 5 days then qd w/ food x 5 days Problems Active Problems Problem Classification Problem Date Documented Da te Episodic/Chronic Abdominal pain (20 sources) Flank pain; Translations: [Epigastric pain] Onset: 03-04-2015 05-05-2021 Episodic Acute bronchitis (14 sources) Acute bronchitis; Translations: [Acute bronchitis, unspecified] Onset: 01-27-2014 Episodic Allergic reactions (11 sources) Contact dermatitis; Translations: [Contact dermatitis and other eczema, due to unspecified cause] Onset: 07-15-2015 07-26-2024 Episodic Anxiety disorders (20 sources) Generalized anxiety disorder; Translations: [Generalized anxiety disorder] Onset: 02-28-2022 Chronic Calculus of urinary tract (20 sources) Kidney stone; Translations: [Calculus of kidney] Onset: 07-13-2022 Episodic Cardiac dysrhythmias (13 sources) Tachycardia; Translations: [Tachycardia, unspecified] Onset: 01-31-2022 Episodic Diabetes mellitus without complication (5 sources) Impaired fasting glycemia; Translations: [Impaired fasting glucose] 05-02-2024 Episodic Diseases of white blood cells (5 sources) Leukocytosis; Translations: [Elevated white blood cell [...] Onset: 01-27-2014 Episodic Miscellaneous mental health disorders (13 sources) Globus sensation; 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] 04-15-2024 Chronic Mood disorders (20 sources) Single episode of major depression in full remission; Translations: [Major depressive disorder, single episode, in full remission] Onset: 09-25-1959 Chronic Osteoarthritis (4 sources) Arthritis 05-05-2021 Chronic Osteoporosis (13 sources) Osteoporosis; Translations: [Age-related osteoporosis without current [...] Episodic Other diseases of veins and lymphatics (3 sources) Venous insufficiency of leg; Translations: [Venous insufficiency [...] diarrhea] Onset: 09-10-2018 Chronic Other gastrointestinal disorders (13 sources) Irritable bowel syndrome; Translations: [Irritable bowel syndrome] 02-20-2024 Chronic Other gastrointestinal disorders (2 sources) Irritable bowel syndrome without diarrhea; Translations: [Irritable bowel syndrome] 02-20-2024 Chronic Other gastrointestinal disorders (1 source) Change in bowel habit; Translations: [Other symptoms involving digestive system] 09-24-2024 Episodic Other injuries and conditions due to external [...] Onset: 01-30-2015 Chronic Other upper respiratory disease (17 sources) Allergic rhinitis due to pollen; Translations: [Allergic rhinitis due to pollen] 12-18-2023 Chronic Other upper respiratory disease (1 source) Chronic rhinitis; Translations: [Chronic rhinitis] 12-02-2024 Chronic Other upper respiratory infections (7 sources) [...] with and (suspected) exposure to COVID-19] Unclassified (3 sources) Urine finding 02-13-2023 Past or Other [...] 6 Episodic Other aftercare (1 source) 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 Your Care Team Attending Physician - Enrique VÁSQUEZ MD Primary Care Physician - SEGUN KINGSLEY DO This Is Your Medications List hydrochlorothiazide (hydrochlorothiazide 25 mg Tab) potassium bicarbonate (Klor-Con/EF 25 mEq oral tablet, effervescent) Contact prescribing physician if questions or concerns acetaminophen (Tylenol) amlodipine (amLODIPine 5 mg Tab) atorvastatin (atorvastatin 40 mg Tab) calcium carbonate (calcium (as carbonate) 600 mg oral tablet) cholecalciferol (Vitamin D3) fluoxetine (FLUoxetine 40 mg Cap) omeprazole (omeprazole 40 mg Cap-) temazepam (temazepam 15 mg Cap) Procedures Performed KUB X-ray (02/08/2024), ESWL of kidney (06/03/2021), Ureteroscopy (05/30/2021), ESWL of kidney (05/27/2021), ESWL of kidney (05/20/2021), ESWL of kidney (05/06/2021), Colonoscopy, Hysterectomy. Discharge Vitals Temperature (Temporal Artery) 37 ???C Heart Rate (Peripheral) 62 Respiratory Rate 17 Blood Pressure 134/72 Height 163 cm Height 64 in Weight 67 kg Weight 147.71 lb BMI 25.22 What to do next Scheduled Follow-Up Appointments Monday2025 10:30 AM EDT With: Enrique VÁSQUEZ MD Where: [facility] [address] [place] [address]- You Need to Schedule the Following Appointments Follow Up with Enrique VÁSQUEZ MD, URL When: Where: [facility] [address], [place] [address]- Medications What How Much When Instructions Unchanged hydrochlorothiazide (hydrochlorothiazide 25 mg Tab) 1 Tablets By Mouth Every day Unchanged potassium bicarbonate (Klor-Con/ EF 25 mEq oral tablet, effervescent) 1 Tablets By Mouth 2 times a day Duration: 90 Days Unchanged acetaminophen (Tylenol) 500 Milligram By Mouth 2 times a day Contact prescribing physician if questions or concerns Unchanged amlodipine (amLODIPine 5 mg Tab) 1 Tablets By Mouth Every day Contact prescribing physician if questions or concerns Unchanged atorvastatin (atorvastatin 40 mg Tab) 1 Tablets By Mouth Every day Contact prescribing physician if questions or concerns Unchanged calcium carbonate (calcium (as carbonate) 600 mg oral tablet) 1 Tablets By Mouth 2 times a day Contact prescribing physician if questions or concerns Unchanged cholecalciferol (Vitamin D3) 1,000 International unit By Mouth Every day Contact prescribing physician if questions or concerns Unchanged fluoxetine (FLUoxetine 40 mg Cap) 1 Capsules By Mouth Every day Contact prescribing physician if questions or concerns Unchanged omeprazole (omeprazole 40 mg Cap-DR) By Mouth Every day Contact prescribing physician if questions or concerns Unchanged temazepam (temazepam 15 mg Cap) 1 Capsules By Mouth Once a day (at bedtime) Contact prescribing physician if questions or concerns Allergies No Known Medication Allergies Problems Ongoing - Any problem that you are currently receiving treatment for. Arthritis Hypercalciuria Hyperlipidemia Hypertension Hypocitraturia Kidney stones Patient Survey You may receive a survey via text or e-mail asking about your office visit. Please share your experience with us by completing your survey. We appreciate your feedback and thank you for choosing us for your care. Education Materials Dietary Guidelines to Help Prevent Kidney Stones [...] for following this plan? Reading food labels ??? Choose foods with no salt added or low-salt labels. Limit your salt (sodium) intake to less than 1,500 mg a day. ??? Choose foods with calcium for each meal and snack. Try to eat about 300 mg of calcium at each meal. Foods that contain 200???500 mg of calcium a serving include: ? 8 oz (237 mL) of milk, aevpfhe-sfhzevlkkiwe-xj iry milk, and calcium-fortifiedfruit juice. Calcium-fortified means [...] One 3 oz (85 g) can of sa (more content not included)... Normal [facility] Ambulatory Visit Summary Ambulatory Visit Summary ZARIA CORONA :1955 Visit Date:03/03/2025 Ambulatory Visit Instructions Your Diagnosis Kidney stones Hypercalciuria Hypocitraturia Tests Performed XR Abdomen 1 View -- Results Pending -- Please visit your patient portal for your results or contact your primary care physician. Your Care Team Attending Physician - Enrique VÁSQUEZ MD Primary Care Physician - SEGUN KINGSLEY DO This Is Your Medications List hydrochlorothiazide (hydrochlorothiazide 25 mg Tab) potassium bicarbonate (Klor-Con/EF 25 mEq oral tablet, effervescent) Contact prescribing physician if questions or concerns acetaminophen (Tylenol) amlodipine (amLODIPine 5 mg Tab) atorvastatin (atorvastatin 40 mg Tab) calcium carbonate (calcium (as carbonate) 600 mg oral tablet) cholecalciferol (Vitamin D3) fluoxetine (FLUoxetine 40 mg Cap) omeprazole (omeprazole 40 mg Cap-) temazepam (temazepam 15 mg Cap) Procedures Performed KUB X-ray (02/08/2024), ESWL of kidney (06/03/2021), Ureteroscopy (05/30/2021), ESWL of kidney (05/27/2021), ESWL of kidney (05/20/2021), ESWL of kidney (05/06/2021), Colonoscopy, Hysterectomy. Discharge Vitals Temperature (Temporal Artery) 37 ???C Heart Rate (Peripheral) 62 Respiratory Rate 17 Blood Pressure 134/72 Height 163 cm Height 64 in Weight 67 kg Weight 147.71 lb BMI 25.22 What to do next You Need to Schedule the Following Appointments Follow Up with MARCY GRESHAM, Enrique Layne, ES When: Where: [facility] [address], [place] [address]- Medications What How Much When Instructions Unchanged hydrochlorothiazide (hydrochlorothiazide 25 mg Tab) 1 Tablets By Mouth Every day Unchanged potassium bicarbonate (Klor-Con/ EF 25 mEq oral tablet, effervescent) 1 Tablets By Mouth 2 times a day Duration: 90 Days Unchanged acetaminophen (Tylenol) 500 Milligram By Mouth 2 times a day Contact prescribing physician if questions or concerns Unchanged amlodipine (amLODIPine 5 mg Tab) 1 Tablets By Mouth Every day Contact prescribing physician if questions or concerns Unchanged atorvastatin (atorvastatin 40 mg Tab) 1 Tablets By Mouth Every day Contact prescribing physician if questions or concerns Unchanged calcium carbonate (calcium (as carbonate) 600 mg oral tablet) 1 Tablets By Mouth 2 times a day Contact prescribing physician if questions or concerns Unchanged cholecalciferol (Vitamin D3) 1,000 International unit By Mouth Every day Contact prescribing physician if questions or concerns Unchanged fluoxetine (FLUoxetine 40 mg Cap) 1 Capsules By Mouth Every day Contact prescribing physician if questions or concerns Unchanged omeprazole (omeprazole 40 mg Cap-DR) By Mouth Every day Contact prescribing physician if questions or concerns Unchanged temazepam (temazepam 15 mg Cap) 1 Capsules By Mouth Once a day (at bedtime) Contact prescribing physician if questions or concerns Allergies No Known Medication Allergies Problems Ongoing - Any problem that you are currently receiving treatment for. Arthritis Hypercalciuria Hyperlipidemia Hypertension Hypocitraturia Kidney stones Patient Survey You may receive a survey via text or e-mail asking about your office visit. Please share your experience with us by completing your survey. We appreciate your feedback and thank you for choosing us for your care. Education Materials Dietary Guidelines to Help Prevent Kidney Stones [...] for following this plan? Reading food labels ??? Choose foods with no salt added or low-salt labels. Limit your salt (sodium) intake to less than 1,500 mg a day. ??? Choose foods with calcium for each meal and snack. Try to eat about 300 mg of calcium at each meal. Foods that contain 200???500 mg of calcium a serving include: ? 8 oz (237 mL) of milk, qyxlaun-svwartgglded-or iry milk, and calcium-fortifiedfruit juice. Calcium-fortified means [...] of sardines or mackerel. Most people need 1,000???1,500 mg of calcium a day. Talk to your dietitian about how much calcium is recommended for you. Shopping ??? Buy plenty of fresh fruits and vegetables. Most people do not nee (more content not included)... Normal [facility] Urology Office/Clinic Noteon 03-03-2025 Urology Office/Clinic Note Urology Office/Clinic Note Chief Complaint 1 year with [facility] HPI Staff 1 year f/u with [facility] Dx: kidney stones, hypercalciuria, hypocitraturia and abnormal UA Klor-Con/EF 25 mEq BID and HCTZ 25mg qd Admits to rare leakage at night. Denies visible blood at any time. States that she voids comfortably. Denies pain of any kind. History of Present Illness Tests reviewed: UA, KUB I have reviewed the previous health record information and history for this patient from DAYAN Reed APRN. I have reviewed and verified the staff HPI to be accurate for this encounter. Review of Systems PHQ Score Initial Depression Screen Score: 0 SCORE ROS - Provider Constitutional: denies weight loss, denies hot flashes. Eyes: denies eye problems. Gastrointestinal: denies nausea, denies vomiting. Cardiovascular: denies chest pain or angina. Integumentary: no dryness Musculoskeletal: denies musculoskeletal symptoms. ENMT: denies otolaryngeal symptoms. Respiratory: no shortness of breath. Heme/Lymph: denies easy bleeding tendency, denies easy bruising tendency. Psychiatric: no confusion, no anxiety. Genitourinary: See HPI. Physical Exam Vitals & Measurements T: 37 ???C(Temporal Artery) HR: 62(Peripheral) RR: 17 BP: 134/72 HT: 163 cm HT: 64 in WT: 147.71 lb WT: 67 kg BMI: 25.22 General Appearance: alert, no distress, well nourished, well developed female. Assessment/Plan BBS 10. 1. Kidney stones (N20.0: Calculus of kidney) History of multiple ESWL procedures in 2020. Metabolic workup 08/11/21 - Volume 2,600 cc. U 24hr Ca 340 H. Citric acid 335 L. KUB 10/16/21 - Neg. KUB 11/18/21 - Neg. KUB 01/20/23 - Bilateral punctate nephrolithiasis. KUB 02/08/24 - Neg. KUB 02/24/25 TBH - Neg but moderate stool burden over both kidneys. UA shows large leuks. Asx. Reviewed imaging with pt, uncertain if stones are present d/t bowel content. Could repeat KUB with bowel prep or wait for 1 yr since she is asx. Pt is not having any issues and prefers to repeat KUB next year. Recommended repeating metabolic workup since it has been a few years. Pt agreeable. Follow up 1 yr with KUB and metabolic workup (urine and blood) or sooner if needed. Pt understands and agrees with plan. 2. Hypercalciuria (R82.994: Hypercalciuria) Metabolic workup 08/11/21 - Volume 2,600 cc. U 24hr Ca 340 H. Citric acid 335 L. 03/09/22 - K 4.0. Electrolyte panel 10/27/22 - K 3.9 wnl. Electrolyte panel 02/08/24 - wnl, K 4.0. Taking HCTZ 12.5 mg qd (cuts a 25 mg tab in half). Recommend completing current bottle then refilling with 12.5 mg so she doesn't have to cut tabs. Pt agreeable. -Cont HCTZ 12.5 mg qd, refill sent to [facility] 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 U 24hr Ca 340 H. Citric acid 335 L. Taking Effer-K 25 mEq bid. Cont wo changes. Follow-up With When Contact Information MARCY GRESHAM, Enrique Layne, URL [facility] [address], [place] [address]- Additional Instructions: 1 yr with [facility] and metabolic workup (urine and blood) Patient Education Dietary Guidelines to Help Prevent Kidney Stones I, Selma Allen, personally scribed for Dr. Vásquez on 03/03/2025 12:09:09. . Documentation recorded by the scribe, Selma Allen, accurately reflects the services(s) I performed and decisions made by me. Authenticated by Dr. Vásquez on 03/03/2025 12:14:49. Problem List/Past Medical History Ongoing Arthritis Hypercalciuria Hyperlipidemia Hypertension Hypocitraturia Kidney stones Historical No qualifying data Procedure/Surgical History KUB [...] effervescent, 25 mEq= 1 tab(s), Oral, BID, 3 refills omeprazole 40 mg Cap-DR, Oral, Daily temazepam 15 mg Cap, 15 mg= 1 cap(s), Oral, Once a day (at bedtime) Tylenol, 500 mg, Oral, BID Vitamin D3, 1000 International_Unit, Oral, Daily Allergies No Known Medication Allergies Social History Tobacco Never (less than 100 in lifetime) Tobacco Use:. Never Smokeless Tobacco Use:. Yes, 03/03/2025 Family History Arthritis: Mother and Father. Hypertension: Mother. Uterine cancer: Mother. Immunizations Vaccine Date Status Comments pneumococcal 13-valent vaccine 04/01/2022 Recorded SARS-CoV-2 (COVID-19) Ad26 vaccine 09/01/2021 Recorded influenza virus vaccine, inactivated 05/2021 Recorded diphtheria/pertussis, acel/tetanus adult 04 (more content not included)... Normal [facility] Comment on above: Result Comment: Elec tronically Signed By: Enrique VÁSQUEZ MD\.br\Date and Time Signed: 03/03/25 12:14 EDT\.br\Electronically Co-Signed By: Selma Allen\.br\Date and Time Co-Signed: 03/03/25 12:09 EDT Influenza virus B Ag [Presen ce] in Upper respiratory specimen by Rapid immunoassayon 12-02-2024 FLUBV Ag IA.rapid Ql (Nph) Influenza virus B Ag [Presence] in Upper respiratory specimen by Rapid immunoassay [facility] No Panel Informationon 12-02 Influenza Type A (Rapid) Negative [facility] POC SARS CoV-2 Antigen Negative [facility] Basophils Auto (Bld) [#/Vol] on 09-24-2024 Basophils (Bld) [#/Vol] Automated basophil count 0.0-0.1 [facility] Basophils/100 WBC Auto (Bld) on 09-24-2024 Basophils/100 WBC (Bld) Automated basophil % 0.2-2.0 [facility] Eosinophils/100 WBC Auto (Bl d)on 09-24-2024 Eosinophils/100 WBC (Bld) Automated eosinophil % 0.9-7.0 [facility] Erythrocyte distribution wid th Auto (RBC) [Ratio]on 09-24-2024 Erythrocyte distribution width (RBC) [Ratio] Erythrocyte distribution width [Ratio] by Automated count 11.0-15.0 [facility] Estimated glomerular filtrat ion rate (GFR) non- Americanon 09-24-2024 GFR/1.73 sq M.predicted among non-blacks MDRD (S/P/Bld) [Vol rate/Area] Estimated glomerular filtration rate (GFR) non- >=60 mL/min/1.73m 2 [facility] Globulin Calc (S) [Mass/Vol] on 09-24-2024 Globulin (S) [Mass/Vol] Serum globulin measurement by calculation (mass/volume) [facility] Hematocrit Auto (Bld) [Volum e fraction]on 09-24-2024 Hematocrit (Bld) [Volume fraction] Hematocrit [Volume Fraction] of Blood by Automated count 36.0-48.0 [facility] Hemoglobin [Mass/volume] in Bloodon 09-24-2024 Hemoglobin (Bld) [Mass/Vol] Hemoglobin [Mass/volume] in Blood 12.0-16.0 [facility] Laboratory - Chemistry and C hemistry - challengeon 09-24-2024 Albumin [Mass/Vol] 3.5 g/dL 3.4-5.0 [facility] ALP [Catalytic activity/Vol] 167 U/L High 46-116 [facility] ALT [Catalytic activity/Vol] 43 U/L 14-59 [facility] Amylase [Catalytic activity/Vol] 44 U/L 25-115 [facility] AST [Catalytic activity/Vol] 29 U/L 15-37 [facility] Bilirubin [Mass/Vol] 0.4 mg/dL 0.2-1.0 [facility] Calcium [Mass/Vol] 9.2 mg/dL 8.5-10.1 [facility] Chloride [Moles/Vol] 102 mmol/L 98-107 [facility] CO2 [Moles/Vol] 27.8 mmol/L 21.0-32.0 [facility] Creatinine [Mass/Vol] 0.84 mg/dL 0.55-1.02 [facility] GFR/1.73 sq M.predicted MDRD (S/P/Bld) [Vol rate/Area] mL/min/{1.73_m2} >=60 mL/min/1.73m 2 [facility] Glucose [Mass/Vol] 100 mg/dL 74-106 [facility] Potassium [Moles/Vol] 3.5 mmol/L 3.5-5.1 [facility] Protein [Mass/Vol] 7.7 g/dL 6.4-8.2 [facility] Sodium [Moles/Vol] 139 mmol/L 136-145 [facility] Urea nitrogen [Mass/Vol] 14.0 mg/dL 7.0-18.0 [facility] Urea nitrogen/Creatinine [Mass ratio] 16.7 mg/mg [facility] Laboratory - Hematology and Cell countson 09-24-2024 Immature granulocytes/100 WBC (Bld) 0.3 % 0.0-0.5 [facility] Leukocytes [#/volume] correc toby for nucleated erythrocytes in Blood by Automated counon 09-24-2024 WBC corrected for nucl RBC Auto (Bld) [#/Vol] Leukocytes [#/volume] corrected for nucleated erythrocytes in Blood by Automated coun 4.0-11.0 [facility] Lymphocytes Auto (Bld) [#/Vo l]on 09-24-2024 Lymphocytes (Bld) [#/Vol] Lymphocytes [#/volume] in Blood by Automated count 1.2-3.8 [facility] Lymphocytes/100 WBC Auto (Bl d)on 09-24-2024 Lymphocytes/100 WBC (Bld) Lymphocytes/100 leukocytes in Blood by Automated count 20.5-60.0 [facility] MCH Auto (RBC) [Entitic mass ]on 09-24-2024 MCH (RBC) [Entitic mass] MCH [Entitic mass] by Automated count 26.7-34.0 [facility] MCHC Auto (RBC) [Mass/Vol]on 09-24-2024 MCHC (RBC) [Mass/Vol] MCHC [Mass/volume] by Automated count 29.9-35.2 [facility] MCV Auto (RBC) [Entitic vol] on 09-24-2024 MCV (RBC) [Entitic vol] MCV [Entitic volume] by Automated count 81.0-99.0 [facility] Monocytes Auto (Bld) [#/Vol] on 09-24-2024 Monocytes (Bld) [#/Vol] Automated blood monocyte count 0.3-0.8 [facility] Monocytes/100 WBC Auto (Bld) on 09-24-2024 Monocytes/100 WBC (Bld) Automated monocyte % 1.7-12.0 [facility] Neutrophils Auto (Bld) [#/Vo l]on 09-24-2024 Neutrophils (Bld) [#/Vol] Neutrophils [#/volume] in Blood by Automated count High 1.4-6.5 [facility] Neutrophils/100 WBC Auto (Bl d)on 09-24-2024 Neutrophils/100 WBC (Bld) Automated neutrophil % 43.0-75.0 [facility] No Panel Informationon 09-24 Eosinophils # (Auto) 0.2 10 3/uL 0.0-0.7 [facility] Immature Granulocyte # (Auto) 0.03 10 3/uL 0.00-0.03 [facility] Platelet mean volume Auto (B ld) [Entitic vol]on 09-24-2024 Platelet mean volume (Bld) [Entitic vol] Platelet mean volume [Entitic volume] in Blood by Automated count Low 9.5-13.5 [facility] Platelets Auto (Bld) [#/Vol] on 09-24-2024 Platelets (Bld) [#/Vol] Platelets [#/volume] in Blood by Automated count 150-450 [facility] RBC Auto (Bld) [#/Vol]on RBC (Bld) [#/Vol] Erythrocytes [#/volu me] in Blood by Automated count 4.20-5.40 [facility] Serum or plasma albumin/glob ulin mass ratioon 09-24-2024 Albumin/Globulin [Mass ratio] Serum or plasma albumin/globulin mass ratio [facility] Serum or plasma anion gap de terminationon 09-24-2024 Anion gap [Moles/Vol] Serum or plasma anion gap determination [facility] Basophils Auto (Bld) [#/Vol] on 05-06-2024 Basophils (Bld) [#/Vol] 0.1 10 3/uL 0.0-0.1 [facility] Basophils/100 WBC Auto (Bld) on 05-06-2024 Basophils/100 WBC (Bld) 0.5 % 0.2-2.0 [facility] Eosinophils/100 WBC Auto (Bl d)on 05-06-2024 Eosinophils/100 WBC (Bld) 3.0 % 0.9-7.0 [facility] Erythrocyte distribution wid th Auto (RBC) [Ratio]on 05-06-2024 Erythrocyte distribution width (RBC) [Ratio] 15.0 % 11.0-15.0 [facility] Glucose mean value [Mass/vol ume] in Blood Estimated from glycated hemoglobinon 05-06-2024 Average glucose Estimated from glycated hemoglobin (Bld) [Mass/Vol] 117 mg/dL [facility] Hematocrit Auto (Bld) [Volum e fraction]on 05-06-2024 Hematocrit (Bld) [Volume fraction] 41.1 % 36.0-48.0 [facility] Hemoglobin [Mass/volume] in Bloodon 05-06-2024 Hemoglobin (Bld) [Mass/Vol] 13.2 g/dL 12.0-16.0 [facility] Say 05-06-2024 L Specimen: Received: 05/06/24 Status: SOUGuru Rechrissy Num: [id number] Spec Type: Impression Subm Dr: Segun Kingsley DO Tissues: PATHPER Procedures: PATHREVIEW Age/ Patient Sex Location Account Attending Physician UniqueZaria suero 68/F [place]E[facility] [id number] Segun Kingsley DO SPEC NUM: [id number] RECD: 05/06/24 STATUS: MARY RODGERS NUM: [id number] KYRIE: 05/06/[address]: Segun Kingsley DO ENTERED: 05/06/[address] [facility] [address]: Milagro Mcmahan SPEC TYPE: Impression DEPT: GARRETT Myles ENTERED BY: [id number] RECV BY: [id number] ORDERED: PATHREVIEW ORDERED: PATHREVIEW Pathologist Review Abnormal [...] inflammation, or underlying infection requiring clinical correlations [facility]:[id number] Specimen: [id number] Received: 05/06/24-0 Status: MARY Rodgers Num: [id number] Spec Type: Impression Subm Dr: Segun Kingsley DO Tissues: PATHPER Procedures: PATHREVIEW Patient: Zaria Corona [id number] (Continued) Signed (signature on file) Qasim Feng MD 05/07/24 1023 Normal [facility] Laboratory - Hematology and Cell countson 05-06-2024 HbA1c (Bld) [Mass fraction] 5.7 % 4.5-6.2 [facility] Comment on above: ADA RECOMMENDED LIMI T 4.0 - 6.0ADA THERAPEUTIC TARGET < 7.0ACTION SUGGESTED> 7.0 Immature granulocytes/100 WBC (Bld) 0.7 % High 0.0-0.5 [facility] Leukocytes [#/volume] correc toby for nucleated erythrocytes in Blood by Automated counon 05-06-2024 WBC corrected for nucl RBC Auto (Bld) [#/Vol] 13.2 10 3/uL High 4.0-11.0 [facility] Lymphocytes Auto (Bld) [#/Vo l]on 05-06-2024 Lymphocytes (Bld) [#/Vol] 2.7 10 3/uL 1.2-3.8 [facility] Lymphocytes/100 WBC Auto (Bl d)on 05-06-2024 Lymphocytes/100 WBC (Bld) 20.6 % 20.5-60.0 [facility] MCH Auto (RBC) [Entitic mass ]on 05-06-2024 MCH (RBC) [Entitic mass] 27.9 pg 26.7-34.0 [facility] MCHC Auto (RBC) [Mass/Vol]on 05-06-2024 MCHC (RBC) [Mass/Vol] 32.1 g/dL 29.9-35.2 [facility] MCV Auto (RBC) [Entitic vol] on 05-06-2024 MCV (RBC) [Entitic vol] 86.9 fL 81.0-99.0 [facility] Monocytes Auto (Bld) [#/Vol] on 05-06-2024 Monocytes (Bld) [#/Vol] 0.7 10 3/uL 0.3-0.8 [facility] Monocytes/100 WBC Auto (Bld) on 05-06-2024 Monocytes/100 WBC (Bld) 5.0 % 1.7-12.0 [facility] Neutrophils Auto (Bld) [#/Vo l]on 05-06-2024 Neutrophils (Bld) [#/Vol] 9.3 10 3/uL High 1.4-6.5 [facility] Neutrophils/100 WBC Auto (Bl d)on 05-06-2024 Neutrophils/100 WBC (Bld) 70.2 % 43.0-75.0 [facility] No Panel Informationon 05-06 Add Manual Differential See comment [facility] Comment on above: SEE SCANNED REPORT Eosinophils # (Auto) 0.4 10 3/uL 0.0-0.7 [facility] Immature Granulocyte # (Auto) 0.09 10 3/uL High 0.00-0.03 [facility] Platelet mean volume Auto (B ld) [Entitic vol]on 05-06-2024 Platelet mean volume (Bld) [Entitic vol] 8.5 fL Low 9.5-13.5 [facility] Platelets Auto (Bld) [#/Vol] on 05-06-2024 Platelets (Bld) [#/Vol] 419 10 3/uL 150-450 [facility] RBC Auto (Bld) [#/Vol]on RBC (Bld) [#/Vol] 4.73 10 6/uL 4.20-5.40 [facility] Basophils Auto (Bld) [#/Vol] on 05-01-2024 Basophils (Bld) [#/Vol] 0.1 10 3/uL 0.0-0.1 [facility] Basophils/100 WBC Auto (Bld) on 05-01-2024 Basophils/100 WBC (Bld) 0.3 % 0.2-2.0 [facility] Cholesterol in LDL Calc [Mas s/Vol]on 05-01-2024 Cholesterol in LDL [Mass/Vol] 56.0 mg/dL [facility] Comment on above: <100 mg/dl [id number] 0-129 mg/dl NEAR OR ABOVE [id number] mg/dl BORDERLINE [id number] mg/dl HIGH>190 mg/dl VERY HIGH Cholesterol in VLDL Calc [Ma ss/Vol]on 05-01-2024 Cholesterol in VLDL [Mass/Vol] 21.0 mg/dL [facility] Eosinophils/100 WBC Auto (Bl d)on 05-01-2024 Eosinophils/100 WBC (Bld) 0.6 % Low 0.9-7.0 [facility] Erythrocyte distribution wid th Auto (RBC) [Ratio]on 05-01-2024 Erythrocyte distribution width (RBC) [Ratio] 15.3 % High 11.0-15.0 [facility] Estimated glomerular filtrat ion rate (GFR) non- Americanon 05-01-2024 GFR/1.73 sq M.predicted among non-blacks MDRD (S/P/Bld) [Vol rate/Area] mL/min/{1.73_m2} >=60 [facility] Globulin Calc (S) [Mass/Vol] on 05-01-2024 Globulin (S) [Mass/Vol] 4.7 g/dL [facility] Hematocrit Auto (Bld) [Volum e fraction]on 05-01-2024 Hematocrit (Bld) [Volume fraction] 40.0 % 36.0-48.0 [facility] Hemoglobin [Mass/volume] in Bloodon 05-01-2024 Hemoglobin (Bld) [Mass/Vol] 12.9 g/dL 12.0-16.0 [facility] Laboratory - Chemistry and C hemistry - challengeon 05-01-2024 Albumin [Mass/Vol] 3.3 g/dL Low 3.4-5.0 [facility] ALP [Catalytic activity/Vol] 157 U/L High 46-116 [facility] ALT [Catalytic activity/Vol] 22 U/L 14-59 [facility] AST [Catalytic activity/Vol] 17 U/L 15-37 [facility] Bilirubin [Mass/Vol] 0.6 mg/dL 0.2-1.0 [facility] Calcium [Mass/Vol] 9.1 mg/dL 8.5-10.1 [facility] Chloride [Moles/Vol] 99 mmol/L 98-107 [facility] Cholesterol [Mass/Vol] 155 mg/dL <=200 [facility] Cholesterol in HDL [Mass/Vol] 78 mg/dL High 40-60 [facility] Comment on above: > or =60 mg/dl - LOW CARDIOVASCULAR RISK<40 mg/dl - HIGH CARDIOVASCULAR RISK CO2 [Moles/Vol] 27.0 mmol/L 21.0-32.0 [facility] Creatinine [Mass/Vol] 0.70 mg/dL 0.55-1.02 [facility] GFR/1.73 sq M.predicted MDRD (S/P/Bld) [Vol rate/Area] mL/min/{1.73_m2} >=60 [facility] Glucose [Mass/Vol] 124 mg/dL High 74-106 [facility] Potassium [Moles/Vol] 3.3 mmol/L Low 3.5-5.1 [facility] Protein [Mass/Vol] 8.0 g/dL 6.4-8.2 [facility] Sodium [Moles/Vol] 136 mmol/L 136-145 [facility] Triglyceride [Mass/Vol] 105 mg/dL <=150 [facility] Urea nitrogen [Mass/Vol] 15.0 mg/dL 7.0-18.0 [facility] Urea nitrogen/Creatinine [Mass ratio] 21.4 mg/mg [facility] Laboratory - Hematology and Cell countson 05-01-2024 Immature granulocytes/100 WBC (Bld) 0.5 % 0.0-0.5 [facility] Leukocytes [#/volume] correc toby for nucleated erythrocytes in Blood by Automated counon 05-01-2024 WBC corrected for nucl RBC Auto (Bld) [#/Vol] 19.0 10 3/uL High 4.0-11.0 [facility] Lymphocytes Auto (Bld) [#/Vo l]on 05-01-2024 Lymphocytes (Bld) [#/Vol] 2.0 10 3/uL 1.2-3.8 [facility] Lymphocytes/100 WBC Auto (Bl d)on 05-01-2024 Lymphocytes/100 WBC (Bld) 10.3 % Low 20.5-60.0 [facility] MCH Auto (RBC) [Entitic mass ]on 05-01-2024 MCH (RBC) [Entitic mass] 27.6 pg 26.7-34.0 [facility] MCHC Auto (RBC) [Mass/Vol]on 05-01-2024 MCHC (RBC) [Mass/Vol] 32.3 g/dL 29.9-35.2 [facility] MCV Auto (RBC) [Entitic vol] on 05-01-2024 MCV (RBC) [Entitic vol] 85.7 fL 81.0-99.0 [facility] Monocytes Auto (Bld) [#/Vol] on 05-01-2024 Monocytes (Bld) [#/Vol] 1.2 10 3/uL High 0.3-0.8 [facility] Monocytes/100 WBC Auto (Bld) on 05-01-2024 Monocytes/100 WBC (Bld) 6.2 % 1.7-12.0 [facility] Neutrophils Auto (Bld) [#/Vo l]on 05-01-2024 Neutrophils (Bld) [#/Vol] 15.6 10 3/uL High 1.4-6.5 [facility] Neutrophils/100 WBC Auto (Bl d)on 05-01-2024 Neutrophils/100 WBC (Bld) 82.1 % High 43.0-75.0 [facility] No Panel Informationon 05-01 Eosinophils # (Auto) 0.1 10 3/uL 0.0-0.7 [facility] Immature Granulocyte # (Auto) 0.09 10 3/uL High 0.00-0.03 [facility] Platelet mean volume Auto (B ld) [Entitic vol]on 05-01-2024 Platelet mean volume (Bld) [Entitic vol] 9.1 fL Low 9.5-13.5 [facility] Platelets Auto (Bld) [#/Vol] on 05-01-2024 Platelets (Bld) [#/Vol] 346 10 3/uL 150-450 [facility] RBC Auto (Bld) [#/Vol]on RBC (Bld) [#/Vol] 4.67 10 6/uL 4.20-5.40 [facility] Serum or plasma albumin/glob ulin mass ratioon 05-01-2024 Albumin/Globulin [Mass ratio] 0.7 {ratio} [facility] Serum or plasma anion gap de terminationon 05-01-2024 Anion gap [Moles/Vol] 13.3 mmol/L [facility] Serum or plasma total choles terol/high density lipoprotein (HDL) cholesterol mass franklin 05-01-2024 Cholesterol.total/Ch olesterol in HDL [Mass ratio] 2.0 {ratio} [facility] Comment on above: 3.3 - 4.4 LOW RISK4. 4 - 7.1 AVERAGE RISK7.1 - 11.0 MODERATE RISK>11.0 H[facility] Laboratory - Chemistry and C hemistry - challengeon 02-08-2024 Chloride [Moles/Vol] 102 mmol/L 98-107 [facility] CO2 [Moles/Vol] 28.0 mmol/L 21.0-32.0 [facility] Potassium [Moles/Vol] 4.0 mmol/L 3.5-5.1 [facility] Sodium [Moles/Vol] 138 mmol/L 136-145 [facility] Serum or plasma anion gap de terminationon 02-08-2024 Anion gap [Moles/Vol] 12.0 mmol/L [facility] XR KUB 1 VIEWon 01-20-2023 XR KUB [...] by: EVERETT ERNANDEZ Date: 2023-01-20 11:11 Normal [facility] ELECTROLYTESon 10-27-2022 Anion gap [Moles/Vol] 12.4 mmol/L Normal [facility] Comment on above: Performed By: #### P THINT #### [facility] [address] [address] [address] Alejandrina Feng Chloride [Moles/Vol] 102 mmol/L Normal 98-107 [facility] Comment on above: Performed By: #### P THINT #### [facility] [address] [place] [address] Dr. Alejandrina Feng CO2 [Moles/Vol] 28.5 mmol/L Normal 21.0-32.0 [facility] Comment on above: Performed By: #### P THINT #### [facility] [address] [address] [address] Alejandrina Feng Potassium [Moles/Vol] 3.9 mmol/L Normal 3.5-5.1 [facility] Comment on above: Performed By: #### P THINT #### [facility] [address] [address] [address] Alejandrina Feng Sodium [Moles/Vol] 139 mmol/L Normal 136-145 [facility] Comment on above: Performed By: #### P THINT #### [facility] [address] [address] [address] Alejandrina Feng US THYROIDon 08-29-2022 US [...] thyroid stable. TR 3 nodule TI-RADS: [employer] [place] [employer] [place] [employer] TI-RADS committee's white paper recommendations for thyroid lesions classified as TR3 (mildly suspicious) are listed below: > 1.5 cm. Follow-up ultrasound in 1, 3, and 5 years. > 2.5 cm. FNA. J. Am [employer]rie Radiol 2017;14:587-595. Electronically authenticated by: EVERETT ERNANDEZ Date: 2022-08-29 07:19 Normal [facility] XR KUB 1 VIEWon 07-14-2022 XR [...] by: JACKSON BACH Date: 2022-07-14 06:26 Normal [facility] ELECTROLYTESon 07-13-2022 Anion gap [Moles/Vol] 9.0 mmol/L Normal [facility] Comment on above: Performed By: #### E LEC #### [facility] [address] [place], [place] [address] Dr. Alejandrina Feng Chloride [Moles/Vol] 101 mmol/L Normal 98-107 [facility] Comment on above: Performed By: #### E LEC #### [facility] [address] [place], [place] [address] Dr. Alejandrina Feng CO2 [Moles/Vol] 27.5 mmol/L Normal 21.0-32.0 [facility] Comment on above: Performed By: #### E LEC #### [facility] [address] [place], [place] [address] Dr. Alejandrina Feng Potassium [Moles/Vol] 3.5 mmol/L Normal 3.5-5.1 [facility] Comment on above: Performed By: #### E LEC #### [facility] [address] [place], [place] [address] Dr. Alejandrina Feng Sodium [Moles/Vol] 134 mmol/L Critically low 136-145 [facility] Comment on above: Performed By: #### E LEC #### [facility] [address] [address] [address] Alejandrina Fneg MG MAMM SCREEN 3D TUSHAR CADon 07-06-2022 MG MAMM SCREEN 3D TUSHAR CAD Patient: ZARIA CORONA Exam Date: 07/06/2022 : 1955 Gender:F Ordering : DR SEGUN KINGSLEY D.O. Admission #: [id number] Family : Order #: [id number] CLICK HERE TO VIEW EXAM RADIOLOGY REPORT [...] Treatments None Family Cancers None LOCATION: [facility] BREAST COMPOSITION: Heterogeneously dense,which may obscure small [...] MD on 07/06/2022 at 10:00 Normal [facility] CBC AUTO DIFFon 06-20-2022 BASO # 0.1 103/ul Normal 0.0-0.1 [facility] Comment on above: Performed By: #### C BC #### [facility] [address] [address] [address] Alejandrina Feng Basophils/100 WBC (Bld) 0.4 % Normal 0.2-2.0 [facility] Comment on above: Performed By: #### C BC #### [facility] [address] [address] [address] Alejandrina Feng EO # 0.1 103/ul Normal 0.0-0.7 [facility] Comment on above: Performed By: #### C BC #### [facility] [address] [address] [address] Alejandrina Feng Eosinophils/100 WBC (Bld) 0.6 % Critically low 0.9-7.0 [facility] Comment on above: Performed By: #### C BC #### [facility] [address] [address] [address] Alejandrina Feng Erythrocyte distribution width (RBC) [Ratio] 14.6 % Normal 11.0-15.0 [facility] Comment on above: Performed By: #### C BC #### [facility] [address] [place] [address] Dr. Alejandrina Feng Hematocrit (Bld) [Volume fraction] 43.6 % Normal 36.0-48.0 [facility] Comment on above: Performed By: #### C BC #### [facility] [address] [address] [address] Alejandrina Feng Hemoglobin (Bld) [Mass/Vol] 14.1 g/dL Normal 12.0-16.0 [facility] Comment on above: Performed By: #### C BC #### [facility] [address] [address] [address] Alejandrina Feng IG # 0.07 10e3/ul Critically high 0.00-0.03 [facility] Comment on above: Performed By: #### C BC #### [facility] [address] [address] [address] Alejandrina Feng IG % 0.6 % Critically high 0.0-0.5 [facility] Comment on above: Performed By: #### C BC #### [facility] [address] [place] [address] Dr. Alejandrina Feng LYMPH # 1.6 103/ul Normal 1.2-3.8 [facility] Comment on above: Performed By: #### C BC #### [facility] [address] [place] [address] Dr. Alejandrina Feng Lymphocytes/100 WBC (Bld) 12.4 % Critically low 20.5-60.0 [facility] Comment on above: Performed By: #### C BC #### [facility] [address] [place] [address] Dr. Alejandrina Feng MANUAL DIFF REQ NO Normal [facility] Comment on above: Performed By: #### C BC #### [facility] [address] [place] [address] Dr. Alejandrina Feng MCH (RBC) [Entitic mass] 27.9 pg Normal 26.7-34.0 [facility] Comment on above: Performed By: #### C BC #### [facility] [address] [place] [address] Dr. Alejandrina Feng MCHC (RBC) [Mass/Vol] 32.3 g/dL Normal 29.9-35.2 [facility] Comment on above: Performed By: #### C BC #### [facility] [address] [place] [address] Dr. Alejandrina Feng MCV (RBC) [Entitic vol] 86.3 fL Normal 81.0-99.0 [facility] Comment on above: Performed By: #### C BC #### [facility] [address] [place] [address] Dr. Alejandrina Feng MONO # 0.9 103/ul Critically high 0.3-0.8 [facility] Comment on above: Performed By: #### C BC #### [facility] [address] [place] [address] Dr. Alejandrina Feng Monocytes/100 WBC (Bld) 7.2 % Normal 1.7-12.0 [facility] Comment on above: Performed By: #### C BC #### [facility] [address] [place] [address] Dr. Alejandrina Feng NEUT # 10.0 103/ul Critically high 1.4-6.5 [facility] Comment on above: Performed By: #### C BC #### [facility] [address] [place] [address] Dr. Alejandrina Feng Neutrophils/100 WBC (Bld) 78.8 % Critically high 43.0-75.0 [facility] Comment on above: Performed By: #### C BC #### [facility] [address] [place] [address] Dr. Alejandrina Feng Platelet mean volume (Bld) [Entitic vol] 8.8 fL Critically low 9.5-13.5 [facility] Comment on above: Performed By: #### C BC #### [facility] [address] [place] [address] Dr. Alejandrina Feng PLT 404 103/ul Normal 150-450 [facility] Comment on above: Performed By: #### C BC #### [facility] [address] [place] [address] Dr. Alejandrina Feng RBC 5.05 106/ul Normal 4.20-5.40 [facility] Comment on above: Performed By: #### C BC #### [facility] [address] [place] [address] Dr. Alejandrina Feng WBC 12.7 103/ul Critically high 4.0-11.0 [facility] Comment on above: Performed By: #### C BC #### [facility] [address] [place] [address] Dr. Alejandrina Feng PROF 14(COMP METB)on 022 Albumin [Mass/Vol] 3.6 g/dL Normal 3.4-5.0 [facility] Comment on above: Performed By: #### C MP, TSH #### [facility] [address] [address] [address] Alejandrina Feng Albumin/Globulin [Mass ratio] 0.8 {ratio} Normal [facility] Comment on above: Performed By: #### C MP, TSH #### [facility] [address] [address] [address] Alejandrina Feng ALP [Catalytic activity/Vol] 182 U/L Critically high 46-116 [facility] Comment on above: Performed By: #### C MP, TSH #### [facility] [address] [address] [address] Alejandrina Feng ALT [Catalytic activity/Vol] 29 U/L Normal 14-59 [facility] Comment on above: Performed By: #### C MP, TSH #### [facility] [address] [place] [address] Dr. Alejandrina Feng Anion gap [Moles/Vol] 13.4 mmol/L Normal [facility] Comment on above: Performed By: #### C MP, TSH #### [facility] [address] [place] [address] Dr. Alejandrina Feng AST [Catalytic activity/Vol] 22 U/L Normal 15-37 [facility] Comment on above: Performed By: #### C MP, TSH #### [facility] [address] [place] [address] Dr. Alejandrina Feng Bilirubin [Mass/Vol] 0.5 mg/dL Normal 0.2-1.0 [facility] Comment on above: Performed By: #### C MP, TSH #### [facility] [address] [address] [address] Alejandrina Feng Calcium [Mass/Vol] 9.3 mg/dL Normal 8.5-10.1 [facility] Comment on above: Performed By: #### C MP, TSH #### [facility] [address] [address] [address] Alejandrina Feng Chloride [Moles/Vol] 102 mmol/L Normal 98-107 [facility] Comment on above: Performed By: #### C MP, TSH #### [facility] [address] [address] [address] Alejandrina Feng CO2 [Moles/Vol] 26.2 mmol/L Normal 21.0-32.0 [facility] Comment on above: Performed By: #### C MP, TSH #### [facility] [address] [address] [address] Alejandrina Feng Creatinine [Mass/Vol] 0.94 mg/dL Normal 0.55-1.02 [facility] Comment on above: Performed By: #### C MP, TSH #### [facility] [address] [address] [address] Alejandrina Feng EGFR-AF BURMESE >60 Normal >=60 [facility] Comment on above: Performed By: #### C MP, TSH #### [facility] [address] [address] [address] Alejandrina Feng EGFR-NON AF BURMESE 59 mL/min/1.73m2 Critically low >=60 [facility] Comment on above: Performed By: #### C MP, TSH #### [facility] [address] [address] [address] Alejandrina Feng Globulin (S) [Mass/Vol] 4.3 g/dL Normal [facility] Comment on above: Performed By: #### C MP, TSH #### [facility] [address] [address] [address] Alejandrina Feng Glucose [Mass/Vol] 101 mg/dL Normal 74-106 [facility] Comment on above: Performed By: #### C MP, TSH #### [facility] [address] [address] [address] Alejandrina Feng Potassium [Moles/Vol] 4.6 mmol/L Normal 3.5-5.1 [facility] Comment on above: Performed By: #### C MP, TSH #### [facility] [address] [address] [address] Alejandrina Feng Protein [Mass/Vol] 7.9 g/dL Normal 6.4-8.2 [facility] Comment on above: Performed By: #### C MP, TSH #### [facility] [address] [address] [address] Alejandrina Feng Sodium [Moles/Vol] 137 mmol/L Normal 136-145 [facility] Comment on above: Performed By: #### C MP, TSH #### [facility] [address] [address] [address] Alejandrina Feng Urea nitrogen [Mass/Vol] 19.0 mg/dL Critically high 7.0-18.0 [facility] Comment on above: Performed By: #### C MP, TSH #### [facility] [address] [place] [address] Dr. Alejandrina Feng Urea nitrogen/Creatinine [Mass ratio] 20.2 mg/mg Normal [facility] Comment on above: Performed By: #### C MP, TSH #### [facility] [address] [place] [address] Dr. Alejandrina Feng TSHon 06-20-2022 TSH 0.854 uIU/mL Normal 0.358-3.740 [facility] Comment on above: Performed By: #### C MP, TSH #### [facility] [address] [place] [address] Dr. Alejandrina Feng Covid-19 PCR ([facility])on 02-23 SARS-CoV-2 (COVID-19) RNA JACKSON+probe Ql (Unsp spec) Not detected Normal NOT DETECTED [facility] Comment on above: Result Comment: When [...] for this test is supported by the [place] of Health and Human Service's declaration that [...] used). Performed By: #### C BC #### [facility] [address] [place] [address] Dr. Alejandrina Feng ELECTROLYTESon 03-09-2022 Anion gap [Moles/Vol] 14.8 mmol/L Normal [facility] Comment on above: Performed By: #### E LEC #### [facility] [address] [place] [address] Dr. Alejandrina Feng Chloride [Moles/Vol] 103 mmol/L Normal 98-107 [facility] Comment on above: Performed By: #### E LEC #### [facility] [address] [place] [address] Dr. Alejandrina Feng CO2 [Moles/Vol] 25.2 mmol/L Normal 21.0-32.0 [facility] Comment on above: Performed By: #### E LEC #### [facility] [address] [place] [address] Dr. Alejandrina Feng Potassium [Moles/Vol] 4.0 mmol/L Normal 3.5-5.1 [facility] Comment on above: Performed By: #### E LEC #### [facility] [address] [place] [address] Dr. Alejandrina Feng Sodium [Moles/Vol] 139 mmol/L Normal 136-145 [facility] Comment on above: Performed By: #### E LEC #### [facility] [address] [place] [address] Dr. Alejandrina Feng Covid-19 PCR ([facility])on SARS-CoV-2 (COVID-19) RNA JACKSON+probe Ql (Unsp spec) Not detected Normal NOT DETECTED [facility] Comment on above: Result Comment: This test is not yet approved or cleared by the [place] FDA. When there are no FDA-approved or cleared tests available, and other criteria are met, FDA can make tests available under an emergency access mechanism called an Emergency Use Authorization (EUA). The EUA for this test is supported by the [place] of Health and Human Service's (HHS's) declaration [...] SARS-CoV-2. Performed By: #### C VDTBH #### [facility] [address] [place] [address] Dr. Alejandrina Feng BNPon 02-22-2022 Natriuretic peptide B (Bld) [Mass/Vol] 60.0 pg/mL Normal <=900.0 [facility] Comment on above: Performed By: #### P THINT #### [facility] [address] [place] [address] Dr. Alejandrina Feng CBC AUTO DIFFon 02-22-2022 BASO # 0.1 103/ul Normal 0.0-0.1 [facility] Comment on above: Performed By: #### C BC #### [facility] [address] [place] [address] Dr. Alejandrina Feng Basophils/100 WBC (Bld) 0.4 % Normal 0.2-2.0 [facility] Comment on above: Performed By: #### C BC #### [facility] [address] [place] [address] Dr. Alejandrina Feng EO # 0.2 103/ul Normal 0.0-0.7 [facility] Comment on above: Performed By: #### C BC #### [facility] [address] [place] [address] Dr. Alejandrina Feng Eosinophils/100 WBC (Bld) 1.4 % Normal 0.9-7.0 [facility] Comment on above: Performed By: #### C BC #### [facility] [address] [place] [address] Dr. Alejandrina Feng Erythrocyte distribution width (RBC) [Ratio] 13.3 % Normal 11.0-15.0 [facility] Comment on above: Performed By: #### C BC #### [facility] [address] [place] [address] Dr. Alejandrina Feng Hematocrit (Bld) [Volume fraction] 45.1 % Normal 36.0-48.0 [facility] Comment on above: Performed By: #### C BC #### [facility] [address] [place] [address] Dr. Alejandrina Feng Hemoglobin (Bld) [Mass/Vol] 14.4 g/dL Normal 12.0-16.0 [facility] Comment on above: Performed By: #### C BC #### [facility] [address] [place] [address] Dr. Alejandrina Feng IG # 0.05 10e3/ul Critically high 0.00-0.03 [facility] Comment on above: Performed By: #### C BC #### [facility] [address] [place] [address] Dr. Alejandrina Feng IG % 0.4 % Normal 0.0-0.5 [facility] Comment on above: Performed By: #### C BC #### [facility] [address] [place] [address] Dr. Alejandrina Feng LYMPH # 1.6 103/ul Normal 1.2-3.8 [facility] Comment on above: Performed By: #### C BC #### [facility] [address] [place] [address] Dr. Alejandrina Feng Lymphocytes/100 WBC (Bld) 11.2 % Critically low 20.5-60.0 [facility] Comment on above: Performed By: #### C BC #### [facility] [address] [place] [address] Dr. Alejandrina Feng MANUAL DIFF REQ NO Normal [facility] Comment on above: Performed By: #### C BC #### [facility] [address] [place] [address] Dr. Alejandrina Feng MCH (RBC) [Entitic mass] 28.0 pg Normal 26.7-34.0 [facility] Comment on above: Performed By: #### C BC #### [facility] [address] [place] [address] Dr. Alejandrina Feng MCHC (RBC) [Mass/Vol] 31.9 g/dL Normal 29.9-35.2 [facility] Comment on above: Performed By: #### C BC #### [facility] [address] [place] [address] Dr. Alejandrina Feng MCV (RBC) [Entitic vol] 87.6 fL Normal 81.0-99.0 [facility] Comment on above: Performed By: #### C BC #### [facility] [address] [place] [address] Dr. Alejandrina Feng MONO # 0.6 103/ul Normal 0.3-0.8 [facility] Comment on above: Performed By: #### C BC #### [facility] [address] [place] [address] Dr. Alejandrina Feng Monocytes/100 WBC (Bld) 4.5 % Normal 1.7-12.0 [facility] Comment on above: Performed By: #### C BC #### [facility] [address] [place] [address] Dr. Alejandrina Feng NEUT # 11.4 103/ul Critically high 1.4-6.5 [facility] Comment on above: Performed By: #### C BC #### [facility] [address] [place] [address] Dr. Alejandrina Feng Neutrophils/100 WBC (Bld) 82.1 % Critically high 43.0-75.0 [facility] Comment on above: Performed By: #### C BC #### [facility] [address] [place] [address] Dr. Alejandrina Feng Platelet mean volume (Bld) [Entitic vol] 9.1 fL Critically low 9.5-13.5 [facility] Comment on above: Performed By: #### C BC #### [facility] [address] [place] [address] Dr. Alejandrina Feng PLT 363 103/ul Normal 150-450 [facility] Comment on above: Performed By: #### C BC #### [facility] [address] [address] [address] Alejandrina Feng RBC 5.15 106/ul Normal 4.20-5.40 [facility] Comment on above: Performed By: #### C BC #### [facility] [address] [address] [address] Alejandrina Feng WBC 13.9 103/ul Critically high 4.0-11.0 [facility] Comment on above: Performed By: #### C BC #### [facility] [address] [address] [address] Alejandrina Feng PROF 14(COMP METB)on 022 Albumin [Mass/Vol] 4.0 g/dL Normal 3.4-5.0 [facility] Comment on above: Performed By: #### P THINT #### [facility] [address] [place] [address] Dr. Alejandrina Feng Albumin/Globulin [Mass ratio] 0.8 {ratio} Normal [facility] Comment on above: Performed By: #### P THINT #### [facility] [address] [place] [address] Dr. Alejandrina Feng ALP [Catalytic activity/Vol] 200 U/L Critically high 46-116 [facility] Comment on above: Performed By: #### P THINT #### [facility] [address] [place] [address] Dr. Alejandrina Feng ALT [Catalytic activity/Vol] 29 U/L Normal 14-59 [facility] Comment on above: Performed By: #### P THINT #### [facility] [address] [address] [address] Alejandrina Feng Anion gap [Moles/Vol] 12.2 mmol/L Normal [facility] Comment on above: Performed By: #### P THINT #### [facility] [address] [place] [address] Dr. Alejandrina Feng AST [Catalytic activity/Vol] 25 U/L Normal 15-37 [facility] Comment on above: Performed By: #### P THINT #### [facility] [address] [address] [address] Alejandrina Feng Bilirubin [Mass/Vol] 0.4 mg/dL Normal 0.2-1.0 [facility] Comment on above: Performed By: #### P THINT #### [facility] [address] [address] [address] Alejandrina Feng Calcium [Mass/Vol] 9.5 mg/dL Normal 8.5-10.1 [facility] Comment on above: Performed By: #### P THINT #### [facility] [address] [address] [address] Alejandrina Feng Chloride [Moles/Vol] 101 mmol/L Normal 98-107 [facility] Comment on above: Performed By: #### P THINT #### [facility] [address] [place] [address] Dr. Alejandrina Feng CO2 [Moles/Vol] 25.8 mmol/L Normal 21.0-32.0 [facility] Comment on above: Performed By: #### P THINT #### [facility] [address] [place] [address] Dr. Alejandrina Feng Creatinine [Mass/Vol] 0.69 mg/dL Normal 0.55-1.02 [facility] Comment on above: Performed By: #### P THINT #### [facility] [address] [place] [address] Dr. Alejandrina Feng EGFR-AF BURMESE >60 Normal >=60 [facility] Comment on above: Performed By: #### P THINT #### [facility] [address] [address] [address] Alejandrina Feng EGFR-NON AF BURMESE >60 Normal >=60 [facility] Comment on above: Performed By: #### P THINT #### [facility] [address] [place] [address] Dr. Alejandrina Feng Globulin (S) [Mass/Vol] 4.8 g/dL Normal [facility] Comment on above: Performed By: #### P THINT #### [facility] [address] [address] [address] Alejandrina Feng Glucose [Mass/Vol] 96 mg/dL Normal 74-106 [facility] Comment on above: Performed By: #### P THINT #### [facility] [address] [address] [address] Alejandrina Feng Potassium [Moles/Vol] 4.0 mmol/L Normal 3.5-5.1 [facility] Comment on above: Performed By: #### P THINT #### [facility] [address] [address] [address] Alejandrina Feng Protein [Mass/Vol] 8.8 g/dL Critically high 6.4-8.2 [facility] Comment on above: Performed By: #### P THINT #### [facility] [address] [address] [address] Alejandrina Fneg Sodium [Moles/Vol] 135 mmol/L Critically low 136-145 [facility] Comment on above: Performed By: #### P THINT #### [facility] [address] [address] [address] Alejandrina Feng Urea nitrogen [Mass/Vol] 18.0 mg/dL Normal 7.0-18.0 [facility] Comment on above: Performed By: #### P THINT #### [facility] [address] [address] [address] Alejandrina Feng Urea nitrogen/Creatinine [Mass ratio] 26.1 mg/mg Normal [facility] Comment on above: Performed By: #### P THINT #### [facility] [address] [address] [address] Alejandrina Feng TROPONIN, HIGH SENSITIVITYon 02-22-2022 HSTROP 7.4 pg/mL Normal 4.0-51.3 [facility] Comment on above: Result Comment: CUT- OFF POINTS HAVE BEEN ESTABLISHED BASED ON THE FOURTH UNIVERSAL DEFINITIONS OF MYOCARDIAL INFARCTION. THE UPPER REFERENCE LIMIT (URL) OF TROPONIN, DEFINED THE 99TH PERCENTILE OF cTnI DISTRIBUTION IN A REFERENCE POPULATION, HAS BEEN CONFIRMED THE DECISION THRESHOLD FOR [place] DIAGNOSIS. Performed By: #### H STROPN #### [facility] [address] [place] [address] Dr. Alejandrina Feng HSTROP 6.4 pg/mL Normal 4.0-51.3 [facility] Comment on above: Result Comment: CUT- OFF POINTS HAVE BEEN ESTABLISHED BASED ON THE FOURTH UNIVERSAL DEFINITIONS OF MYOCARDIAL INFARCTION. THE UPPER REFERENCE LIMIT (URL) OF TROPONIN, DEFINED THE 99TH PERCENTILE OF cTnI DISTRIBUTION IN A REFERENCE POPULATION, HAS BEEN CONFIRMED THE DECISION THRESHOLD FOR WY DIAGNOSIS. Performed By: #### P THINT #### [facility] [address] [place] [address] Dr. Alejandrina Feng XR CHEST 1 Von [...] by: EVERETT ERNANDEZ Date: 2022-02-22 13:20 Normal [facility] OSMOLALITYon 02-02-2022 Osmolality [Osmolality] 284 mosm/kg Normal 280-301 [facility] Comment on above: Performed By: #### P THINT #### [facility] [address] [place] [address] Dr. Alejandrina Feng OSMOLALITY URINEon 2 Osmolality, Urine 629 mOsmol/kg Normal [facility] Comment on above: Result Comment: 24 h r : 300 - 900 Random: 50 - 1400 After 12hr fluid restriction: >850 Performed By: #### O SMOU #### [facility] [address] [place] [address] Dr. Alejandrina Feng PTH INTACTon 02-01-2022 PTH, Intact 42 pg/mL Normal 15-65 [facility] Comment on above: Performed By: #### P THINT #### [facility] [address] [place] [address] Dr. Alejandrina Feng PROF CHEM 8 (BAS METB)on Anion gap [Moles/Vol] 12.7 mmol/L Normal [facility] Comment on above: Performed By: #### P THINT #### [facility] [address] [place] [address] Dr. Alejandrina Feng Calcium [Mass/Vol] 8.7 mg/dL Normal 8.5-10.1 [facility] Comment on above: Performed By: #### P THINT #### [facility] [address] [address] [address] Alejandrina Feng Chloride [Moles/Vol] 100 mmol/L Normal 98-107 [facility] Comment on above: Performed By: #### P THINT #### [facility] [address] [place] [address] Dr. Alejandrina Feng CO2 [Moles/Vol] 27.7 mmol/L Normal 21.0-32.0 [facility] Comment on above: Performed By: #### P THINT #### [facility] [address] [place] [address] Dr. Alejandrina Feng Creatinine [Mass/Vol] 0.65 mg/dL Normal 0.55-1.02 [facility] Comment on above: Performed By: #### P THINT #### [facility] [address] [place] [address] Dr. Alejandrina Feng EGFR-AF BURMESE >60 Normal >=60 [facility] Comment on above: Performed By: #### P THINT #### [facility] [address] [place] [address] Dr. Alejandrina Feng EGFR-NON AF BURMESE >60 Normal >=60 [facility] Comment on above: Performed By: #### P THINT #### [facility] [address] [place] [address] Dr. Alejandrina Feng Glucose [Mass/Vol] 103 mg/dL Normal 74-106 [facility] Comment on above: Performed By: #### P THINT #### [facility] [address] [place] [address] Dr. Alejandrina Feng Potassium [Moles/Vol] 3.4 mmol/L Critically low 3.5-5.1 [facility] Comment on above: Performed By: #### P THINT #### [facility] [address] [place] [address] Dr. Alejandrina Feng Sodium [Moles/Vol] 137 mmol/L Normal 136-145 [facility] Comment on above: Performed By: #### P THINT #### [facility] [address] [place] [address] Dr. Alejandrina Feng Urea nitrogen [Mass/Vol] 15.0 mg/dL Normal 7.0-18.0 [facility] Comment on above: Performed By: #### P THINT #### [facility] [address] [place] [address] Dr. Alejandrina Feng Urea nitrogen/Creatinine [Mass ratio] 23.1 mg/mg Normal [facility] Comment on above: Performed By: #### P THINT #### [facility] [address] [place] [address] Dr. Alejandrina Feng SODIUM RANDOM URINEon 2021 Sodium (U) [Moles/Vol] 74 mmol/L Normal 30-90 [facility] Comment on above: Performed By: #### N AU #### [facility] [address] [place] [address] Dr. Alejandrina Feng TSHon 01-31-2022 TSH 0.791 uIU/mL Normal 0.358-3.740 [facility] Comment on above: Performed By: #### P THINT #### [facility] [address] [place] [address] Dr. Alejandrina Feng TSH RANGE SEE BELOW Normal [facility] Comment on above: Result Comment: <0.3 4 UIU/ml HYPERTHYROID 0.34-5.60 UIU/ml EUTHYROID >5.60 UIU/ml HYPOTHYROID Performed By: #### P THINT #### [facility] [address] [place] [address] Dr. Alejandrina Feng Vital Signs Date Time Vital Sign Value Performing Clinician Facility 12-02-2024 10:40-0400 Body height 162.56 cm [facility] 12-02-2024 10:40-0400 Body mass index (BMI) [Ratio] 24.6 kg/m2 [facility] 12-02-2024 10:40-0400 Body weight 65.09 kg [facility] 12-02-2024 10:40-0400 Diastolic blood pressure 82 mm[Hg] [facility] 12-02-2024 10:40-0400 Heart rate 80 /min [facility] 12-02-2024 10:40-0400 Respiratory rate 12 /min [facility] 12-02-2024 10:40-0400 Systolic blood pressure 130 mm[Hg] [facility] 09-24-2024 10:51-0500 Body height 162.56 cm [facility] 09-24-2024 10:51-0500 Body mass index (BMI) [Ratio] 24.7 kg/m2 [facility] 09-24-2024 10:51-0500 Body weight 65.31 kg [facility] 09-24-2024 10:51-0500 Diastolic blood pressure 76 mm[Hg] [facility] 09-24-2024 10:51-0500 Heart rate 74 /min [facility] 09-24-2024 10:51-0500 Systolic blood pressure 118 mm[Hg] [facility] 08-07-2024 09:24-0500 Body height 162.56 cm [facility] 08-07-2024 09:24-0500 Body mass index (BMI) [Ratio] 24.9 kg/m2 [facility] 08-07-2024 09:24-0500 Body weight 65.94 kg [facility] 08-07-2024 09:24-0500 Diastolic blood pressure 79 mm[Hg] [facility] 08-07-2024 09:24-0500 Heart rate 83 /min [facility] 08-07-2024 09:24-0500 Respiratory rate 12 /min [facility] 08-07-2024 09:24-0500 Systolic blood pressure 120 mm[Hg] [facility] 07-26-2024 09:06-0400 Body height 162.56 cm [facility] 07-26-2024 09:06-0400 Body mass index (BMI) [Ratio] 25.1 kg/m2 [facility] 07-26-2024 09:06-0400 Body weight 66.39 kg [facility] 07-26-2024 09:06-0400 Diastolic blood pressure 78 mm[Hg] [facility] 07-26-2024 09:06-0400 Heart rate 76 /min [facility] 07-26-2024 09:06-0400 Respiratory rate 12 /min [facility] 07-26-2024 09:06-0400 Systolic blood pressure 129 mm[Hg] [facility] 04-15-2024 14:16-0400 Body height 162.56 cm [facility] 04-15-2024 14:16-0400 Body mass index (BMI) [Ratio] 25.9 kg/m2 [facility] 04-15-2024 14:16-0400 Body weight 68.71 kg [facility] 04-15-2024 14:16-0400 Diastolic blood pressure 83 mm[Hg] [facility] 04-15-2024 14:16-0400 Heart rate 80 /min [facility] 04-15-2024 14:16-0400 Respiratory rate 12 /min [facility] 04-15-2024 14:16-0400 Systolic blood pressure 123 mm[Hg] [facility] 02-20-2024 14:50-0400 Blood Pressure Location Kelsie Orzech [facility] 02-20-2024 14:50-0400 Body temperature 98.06 [degF] Kelsie Orzech [facility] 02-20-2024 14:50-0400 Diastolic blood pressure 84 mm[Hg] Kelsie Orzech [facility] 02-20-2024 14:50-0400 Heart rate 83 /min Kelsie Orzech [facility] 02-20-2024 14:50-0400 Respiratory rate 16 /min Kelsie Orzech [facility] 02-20-2024 14:50-0400 Systolic blood pressure 123 mm[Hg] Kelsie Orzech [facility] 02-20-2024 12:02-0400 Body height 162.56 cm [facility] 02-20-2024 12:02-0400 Body mass index (BMI) [Ratio] 25.8 kg/m2 [facility] 02-20-2024 12:02-0400 Body weight 68.26 kg [facility] 02-20-2024 12:02-0400 Diastolic blood pressure 82 mm[Hg] [facility] 02-20-2024 12:02-0400 Heart rate 83 /min [facility] 02-20-2024 12:02-0400 Respiratory rate 12 /min [facility] 02-20-2024 12:02-0400 Systolic blood pressure 130 mm[Hg] [facility] 12-27-2023 09:02-0400 Body height 162.56 cm [facility] 12-27-2023 09:02-0400 Body mass index (BMI) [Ratio] 26.2 kg/m2 [facility] 12-27-2023 09:02-0400 Body weight 69.11 kg [facility] 12-27-2023 09:02-0400 Diastolic blood pressure 84 mm[Hg] [facility] 12-27-2023 09:02-0400 Heart rate 76 /min [facility] 12-27-2023 09:02-0400 Respiratory rate 12 /min [facility] 12-27-2023 09:02-0400 Systolic blood pressure 127 mm[Hg] [facility] 12-19-2023 08:57-0400 Body height 162.56 cm [facility] 12-19-2023 08:57-0400 Body mass index (BMI) [Ratio] 25.9 kg/m2 [facility] 12-19-2023 08:57-0400 Body weight 68.54 kg [facility] 12-19-2023 08:57-0400 Diastolic blood pressure 85 mm[Hg] [facility] 12-19-2023 08:57-0400 Heart rate 98 /min [facility] 12-19-2023 08:57-0400 Respiratory rate 12 /min [facility] 12-19-2023 08:57-0400 Systolic blood pressure 124 mm[Hg] [facility] 10-09-2023 10:00-0500 Body height 162.56 cm Segun Ball Other [facility] 10-09-2023 10:00-0500 Body mass index (BMI) [Ratio] 25.81 kg/m2 Segun Ball Other [facility] [employer] Other 10-09-2023 10:00-0500 Body weight 68.22 kg Segun Ball Other [facility] 10-09-2023 10:00-0500 Diastolic blood pressure 83 mm[Hg] Segun Ball Other [facility] 10-09-2023 10:00-0500 Respiratory rate 12 /min Segun Ball Other [facility] [employer] Other 10-09-2023 10:00-0500 Systolic blood pressure 126 mm[Hg] Segun Ball Other [facility] 09-19-2023 13:45-0500 Body height 162.56 cm Segun Ball Other [facility] [employer] Other 09-19-2023 13:45-0500 Body mass index (BMI) [Ratio] 26.02 kg/m2 Segun Ball Other [facility] [employer] Other 09-19-2023 13:45-0500 Body weight 68.77 kg Segun Ball Other [employer] Other 09-19-2023 13:45-0500 Diastolic blood pressure 79 mm[Hg] Segun Ball Other [employer] Other 09-19-2023 13:45-0500 Respiratory rate 12 /min Segun Ball Other [employer] Other 09-19-2023 13:45-0500 Systolic blood pressure 123 mm[Hg] Segun Ball Other [employer] Other 04-10-2023 11:00-0400 Body height 162.56 cm Segun Ball Other [employer] Other 04-10-2023 11:00-0400 Body mass index (BMI) [Ratio] 26.29 kg/m2 Segun Ball Other [employer] Other 04-10-2023 11:00-0400 Body weight 69.49 kg Segun Ball Other [employer] Other 04-10-2023 11:00-0400 Diastolic blood pressure 74 mm[Hg] Segun Ball Other [employer] Other 04-10-2023 11:00-0400 Respiratory rate 12 /min Segun Ball Other [employer] Other 04-10-2023 11:00-0400 Systolic blood pressure 108 mm[Hg] Segun Ball Other [employer] Other 01-25-2023 12:30-0400 Body height 162.56 cm Segun Ball Other [employer] Other 01-25-2023 12:30-0400 Body mass index (BMI) [Ratio] 26.05 kg/m2 Segun Ball Other [employer] Other 01-25-2023 12:30-0400 Body weight 68.86 kg Segun Ball Other [employer] Other 01-25-2023 12:30-0400 Diastolic blood pressure 81 mm[Hg] Segun Ball Other [employer] Other 01-25-2023 12:30-0400 Respiratory rate 12 /min Segun Ball Other [employer] Other 01-25-2023 12:30-0400 Systolic blood pressure 119 mm[Hg] Segun Ball Other [employer] Other 12-06-2022 11:00-0400 Body height 162.56 cm Segun Ball Other [employer] Other 12-06-2022 11:00-0400 Body mass index (BMI) [Ratio] 25.98 kg/m2 Segun Ball Other [employer] Other 12-06-2022 11:00-0400 Body weight 68.68 kg Segun Ball Other [employer] Other 12-06-2022 11:00-0400 Diastolic blood pressure 74 mm[Hg] Segun Ball Other [employer] Other 12-06-2022 11:00-0400 Respiratory rate 16 /min Segun Ball Other [employer] Other 12-06-2022 11:00-0400 Systolic blood pressure 117 mm[Hg] Segun Ball Other [employer] Other 07-13-2022 13:16-0400 Blood Pressure Location NOE SHANE [facility] 07-13-2022 13:16-0400 Diastolic blood pressure 88 mm[Hg] NOE SHANE [facility] 07-13-2022 13:16-0400 Heart rate 79 /min NOE SHANE [facility] 07-13-2022 13:16-0400 Respiratory rate 16 /min NOE SHANE [facility] 07-13-2022 13:16-0400 Systolic blood pressure 138 mm[Hg] NOE SHANE [facility] Encounters Encounter Date Encounter Type Care Provider Facility Start: 03-02-2026 [facility] Start: 03-03-2025 End: 03-03-2025 ambulatory Enrique VÁSQUEZ Facility:[facility] Start: 03-03-2025 End: 03-03-2025 Patient encounter procedure Enrique VÁSQUEZ [facility] Start: 01-30-2025 End: 01-30-2025 ambulatory [facility] Work Phone: Start: 01-30-2025 End: 01-30-2025 Patient encounter procedure [facility] Work Phone: Start: 12-02-2024 End: 12-02-2024 ambulatory [facility] Work Phone: Start: 12-02-2024 End: 12-02-2024 Patient encounter procedure [facility] Work Phone: Start: 09-24-2024 End: 09-24-2024 Patient encounter procedure [facility] Work Phone: Start: 08-07-2024 End: 08-07-2024 ambulatory [facility] Work Phone: Start: 08-07-2024 End: 08-07-2024 Patient encounter procedure [facility] Work Phone: Start: 07-31-2024 Non-patient / Non-visit [facility] Work Phone: Start: 07-26-2024 End: 07-26-2024 ambulatory [facility] Work Phone: Start: 07-26-2024 End: 07-26-2024 Patient encounter procedure [facility] Work Phone: Start: 05-06-2024 End: 05-06-2024 ambulatory [facility] Facility:[facility] Start: 05-06-2024 Non-patient / Non-visit [facility] Work Phone: Start: 05-01-2024 Non-patient / Non-visit [facility] Work Phone: Start: 04-15-2024 End: 04-15-2024 ambulatory [facility] Work Phone: Start: 04-15-2024 End: 04-15-2024 Encounter for general adult medical examination without abnormal findings [facility] Start: 04-15-2024 End: 04-15-2024 Patient encounter procedure [facility] Work Phone: Start: 02-20-2024 End: 02-20-2024 Lab Drop off Kelsie X Orzech [facility] Start: 02-20-2024 End: 02-20-2024 Patient encounter procedure Kelsie X Orzech [facility] Start: 02-20-2024 End: 02-20-2024 ambulatory [facility] Work Phone: Start: 02-20-2024 End: 02-20-2024 Patient encounter procedure [facility] Work Phone: Start: 02-08-2024 Non-patient / Non-visit [facility] [employer] Work Phone: Start: 12-27-2023 End: 12-27-2023 ambulatory [facility] Work Phone: Start: 12-27-2023 End: 12-27-2023 Patient encounter procedure [facility] Work Phone: Start: 12-19-2023 End: 12-19-2023 ambulatory [facility] Work Phone: Start: 12-19-2023 End: 12-19-2023 Patient encounter procedure [facility] Work Phone: Start: 11-29-2023 Non-patient / Non-visit [facility] [employer] Work Phone: Start: 10-10-2023 End: 10-10-2023 ambulatory Segun Ball Other [employer] Other Start: 10-10-2023 Telephone encounter Segun Sancho [facility] Start: 10-09-2023 End: 10-09-2023 ambulatory Segun Ball Other [employer] Other Start: 10-09-2023 Office outpatient vi sit 25 minutes Segun Sancho [facility] Start: 10-09-2023 End: 10-09-2023 Patient encounter procedure [facility] Work Phone: Start: 09-22-2023 End: 09-22-2023 ambulatory Segun Ball Other [employer] Other Start: 09-22-2023 Telephone encounter Segun Ball [facility] Start: 09-19-2023 End: 09-19-2023 ambulatory Segun Ball Other [employer] Other Start: 09-19-2023 Office outpatient vi sit 15 minutes Segun Ball [facility] Start: 09-13-2023 Telephone encounter Segun Ball [facility] Start: 09-13-2023 End: 09-13-2023 ambulatory ELOINA DUMONT [employer] [employer] Other Start: 07-19-2023 End: 07-19-2023 ambulatory Segun Ball Other [employer] Other Start: 07-19-2023 Office outpatient vi sit 15 minutes Segun Ball [facility] Start: 06-20-2023 End: 06-20-2023 ambulatory Segun Ball Other [employer] Other Start: 06-20-2023 Telephone encounter Segun Ball [facility] Start: 04-13-2023 End: 04-13-2023 ambulatory Segun Ball Other [employer] Other Start: 04-13-2023 Telephone encounter Segun Ball [facility] Start: 04-10-2023 End: 04-10-2023 ambulatory Segun Ball Other [employer] Other Start: 04-10-2023 Encounter for genera l adult medical examination without abnormal findings Segun Ball [facility] Start: 04-10-2023 Periodic preventive med est patient 65yrs& older Segun Ball [facility] Start: 01-25-2023 End: 01-25-2023 ambulatory Segun Ball Other [employer] Other Start: 01-25-2023 Office outpatient vi sit 15 minutes Segun Ball [facility] Start: 01-20-2023 End: 01-21-[address] ENRIQUE VÁSQUEZ . Facility:[facility] Start: 12-06-2022 End: 12-06-2022 ambulatory Segun Kingsley Other [employer] Other Start: 12-06-2022 Office outpatient vi sit 25 minutes Segun Kingsley [facility] Start: 10-27-2022 End: 10-28-[address] ENRIQUE VÁSQUEZ . Facility:[facility] Start: 08-26-2022 End: 08-27-[address] ELOINA DUMONT Facility:[facility] Start: 07-13-2022 End: 07-14-2022 ambulatory Jackson Bach Facility:[facility] Start: 07-13-2022 End: 07-13-2022 Patient encounter procedure NOE SHANE [facility] Start: 07-06-2022 End: 07-07-[address] SEGUN KINGSLEY Facility:[facility] Start: 06-20-2022 End: 06-21-[address] SEGUN KINGSLEY Facility:[facility] Start: 04-01-2022 Adult health examination Segun Kingsley Other [employer] Other Start: 03-11-2022 End: 03-11-[address] SEGUN KINGSLEY Facility:[facility] Start: 03-09-2022 End: 03-10-[address] ENRIQUE VÁSQUEZ . Facility:[facility] Start: 03-02-2022 End: 03-02-[address] SEGUN KINGSLEY Facility:[facility] Start: 02-22-2022 End: 02-22-[address] SEGUN KINGSLEY Facility:[facility] Start: 01-31-2022 End: 02-01-[address] SEGUN KINGSLEY Facility:[facility] Procedures Date Procedure Procedure Detail Performing Clinician Start: 02-08-2024 Radiography of ulsvve-mvcseb-dacyaph Kelsie Perez Start: 06-03-2021 Extracorporeal shock wave [...] Care Activity Detail Author Comprehensive metabo lic 1999 panel - Serum or Plasma [facility] Comprehensive metabo lic 1999 panel - Serum or Plasma [facility] MG Breast - bilateral Screening [facility] Patient Education Low back pain in adults [facility] Work Phone: XR Foot - right GE 3 Views [facility] Immunizations Immunization Date Immunization Notes Care Provider Danyelle kumari 06-22-2022 influenza virus vaccine, split virus (incl. purified surface antigen) Segun Kingsley Other [employer] [facility] [employer] Other 06-22-2022 influenza virus vaccine, unspecified formulation [facility] 06-22-2022 influenza, high dose seasonal, preservative-free Segun Kingsley Other [facility] [employer] Other 04-01-2022 pneumococcal conjuga te vaccine, 13 valent NOE SHANE [facility] 09-01-2021 COVID-19 Vaccine Pfi zer - Documentation Purposes Only Segun Kingsley Other [facility] 09-01-2021 SARS-CoV-2 (COVID-19 ) Ad26 vaccine, recombinant NOE SHANE [facility] 07-19-2021 influenza virus vaccine, split virus (incl. purified surface antigen) Segun Kingsley Other [facility] [employer] Other 07-19-2021 influenza virus vaccine, unspecified formulation [facility] 05-26-2021 influenza virus vaccine, unspecified formulation NOE SVITLANA [facility] 01-05-2021 diphtheria, tetanus toxoids and acellular pertussis vaccine, unspecified formulation Segun Kingsley Other [facility] 01-05-2021 tetanus toxoid, redu agustin diphtheria toxoid, and acellular pertussis vaccine, adsorbed NOE SVITLANA [facility] 12-25-2020 COVID-19, mRNA, LNP- S, PF, 30 mcg/0.3 mL dose NOE SVITLANA [facility] Comment on above: Reason for Medicatio n: Prophylaxis 12-04-2020 COVID-19, mRNA, LNP- S, PF, 30 mcg/0.3 mL dose NOE SVITLANA [facility] Comment on above: Reason for Medicatio n: Prophylaxis 08-14-2020 pneumococcal polysaccharide vaccine, 23 valent Segun Kingsley Other [facility] 08-11-2020 influenza virus vaccine, split virus (incl. purified surface antigen) Segun Kingsley Other [facility] [employer] Other 08-11-2020 influenza virus vaccine, unspecified formulation [facility] 08-10-2020 influenza virus vaccine, unspecified formulation NOE SVITLANA [facility] 07-25-2018 influenza virus vaccine, split virus (incl. purified surface antigen) Segun Kingsley Other [employer] Other 07-25-2018 influenza virus vaccine, unspecified formulation NOE SHANE [facility] 10-12-2017 influenza virus vaccine, split virus (incl. purified surface antigen) Segun Kingsley Other [employer] Other 10-12-2017 influenza virus vaccine, unspecified formulation [facility] Payers Date Payer Category Payer Self-pay 2024 Medicare [id number] 2023 Private Health Insurance [facility] [id number] 1960 Unknown [id number] 2. [id number] 1955 Unknown [id number] 2.16.84 [id number] 1954 Unknown [id number] 2.16.84 [id number] 1954 Unknown [id number] 2.16.84 [id number] 1954 Unknown [id number] 2.16.84 0.1.131280.3.579.2.593 1954 Unknown [id number] 2.16.84 0.1.054341.3.579.2.593 1954 Unknown [id number] 2.16.84 0.1.781225.3.579.2.593 1954 Unknown [id number] 2.16.84 0.1.022375.3.579.2.593 1954 Unknown [id number] 2.16.84 0.1.673098.3.579.2.593 1954 Unknown [id number] 2.16.84 0.1.607307.3.579.2.593 1954 Unknown [id number] 2.16.84 0.1.307394.3.579.2.593 1954 Unknown [id number] 2.16.84 0.1.354761.3.579.2.593 1954 Unknown [id number] 2.16.840 .1.851533.3.579.2.1259 1954 Unknown [id number] 2.16.8 40.1.224179.3.579.2.727 1954 Unknown [id number] 2.16.8 [id number] Unknown [id number] 2.16.8 [id number] Social History Date Type Detail Facility Start: 07-13-2022 End: 03-03-2025 Tobacco smoking status Never smoked tobacco (finding) [facility] Tobacco smoking status Never [facility] Sex Assigned At Female [facility] Start: 1955 Sex Assigned At Female [facility] Start: 11-27-2020 End: 08-07-2024 Sex Female (finding) [facility] Sexual Orientation [facility] Functional Status Date Assessment Result Facility 02-20-2024 Functional Status N/A [facility] 07-13-2022 Functional Status N/A [facility] Clinical Notes 07-13-2022 to 03-03-2025 Note Date & Type Note Facility 03-03-2025 Hospital Discharg e instructions Patient Education 03/03/2025 12:04:21 Dietary Guidelines to Help Prevent Kidney Stones [...] include: ?8 oz (237 mL) of milk, iiglkdp-nklpybxdrnsq-xndcl milk, and calcium-fortifiedfruit juice. Calcium-fortified means that [...] ?Spinach (cooked), rhubarb, beets, sweet potatoes, and Palestinian chard. ?Peanuts. ?Potato chips, togolese fries, and baked potatoes with skin on. ?Nuts and nut products. ?Chocolate. If you regularly take a diuretic medicine, make sure to eat at least 1 or 2 servings of fruits or vegetables that are high in potassium each day. These include: ?Avocado. ?Banana. ?[place], prune, carrot, or tomato juice. ?Baked potato. [...] magnesium, fish oil, or vitamin B6. Take ugrl-aod-somavhn and prescription medicines only as told by [...] Casseroles. Pizza. Lasagna. Frozen meals. Potato chips. Romanian fries. The items listed above may not [...] provider. Document Revised: 12/22/2022 Document Reviewed: 12/22/2022 [employer] Patient Education 2023 [place]. Follow Up Care 02/20/2024 15:25:41 With:MARCY GRESHAM, ES Jacobs Address: [facility] [address], [place] [address]- When: Unknown [facility] 03-03-2025 Note Patient Education Nephrology Dietary Guidelines to Help [...] for following this plan? Reading food labels ??? Choose foods with no salt added or low-salt labels. Limit your salt (sodium) intake to less than 1,500 mg a day. ??? Choose foods with calcium for each meal and snack. Try to eat about 300 mg of calcium at each meal. Foods that contain 200?500 mg of calcium a serving include: ? 8 oz (237 mL) of milk, snwapub-hpuoirnwlmlx-froww milk, and calcium-fortifiedfruit juice. Calcium-fortified means that [...] much calcium is recommended for you. Shopping ??? Buy plenty of fresh fruits and vegetables. Most people do not need to avoid fruits and vegetables, even if these foods contain nutrients that may contribute to kidney stones. ??? When shopping for convenience foods, choose: ? Whole pieces of fruit. ? Pre-made salads with dressing on the side. ? Low-fat fruit and yogurt smoothies. ??? Avoid buying frozen meals or prepared deli foods. These can be high in sodium. ??? Look for foods with live cultures, such as yogurt and kefir. ??? Choose high-fiber grains, such as whole-wheat breads, oat bran, and wheat cereals. Cooking ??? Do not add salt to food when cooking. Place a salt shaker on the table and allow each person to add their own salt to taste. ??? Use vegetable protein, such as beans, textured vegetable protein (TVP), or tofu, instead of meat in pasta, casseroles, and soups. Meal planning ??? Eat less salt, if told by your dietitian. To do this: ? Avoid eating processed or pre-made food. ? Avoid eating fast food. ??? Eat less animal protein, including cheese, meat, [...] size of the palm of your hand. ??? Eat at least five servings of fresh fruits and vegetables each day. To do this: ? Keep fruits and vegetables on hand for snacks. ? Eat one piece of fruit or a handful of berries with breakfast. ? Have a salad and fruit at lunch. ? Have two kinds of vegetables at dinner. ??? You may be told to limit foods that are high in a substance called oxalate. These include: ? Spinach (cooked), rhubarb, beets, sweet potatoes, and Palestinian chard. ? Peanuts. ? Potato chips, togolese fries, and baked potatoes with skin on. ? Nuts and nut products. ? Chocolate. ??? If you regularly take a diuretic medicine, make sure to eat at least 1 or 2 servings of fruits or vegetables that are high in potassium each day. These include: ? Avocado. ? Banana. ? [place], prune, carrot, or tomato juice. ? Baked potato. ? Cabbage. ? Beans and split peas. Lifestyle ??? Drink enough fluid to keep your urine pale yellow. This is the most important thing you can do. Spread your fluid intake throughout the day. ??? If you drink alcohol: ? Limit how [...] oz glass of hard liquor (44 mL). ??? Lose weight if told by your health care provider. Work with your dietitian to find an eating plan and weight loss strategies that work best for you. General information ??? Talk to your health care provider and [...] as magnesium, fish oil, or vitamin B6. ??? Take zgyr-anq-inugloq and prescription medicines only as told by your health (more content not included)... [facility] 12-02-2024 Evaluation note Diagnosis Onset Date Resolution Elevated cholesterol acute 2024 10:28am Essential (primary) hypertension acute December 02, 2024 10:28am Gastroesophageal reflux 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 acute December 02 025 10:28am Lumbar spondylosis acute December 02, 2024 10:28am Primary insomnia acute December 022024 10:28am Recurrent major depressive disorder, in full remission acute December 02, 2024 10:28am Rhinitis noneactive December 02 10:28am [facility] Work Phone: 1(678) 400-671512-31-2024 Evaluation note* Diagnosis Onset Date Resolution Status Admit Date Abdominal pain acute August 272023 10:46am Change in bowel habit noneactive Dec ember 4 10:46am Elevated cholesterol acute Emeka h 2024 10:28am Essential (primary) hypertension acute December 02, 2024 10:28am Gastroesophageal reflux 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 acute December 02, 2 025 10:28am Lumbar spondylosis acute December 02, 2024 10:28am Primary insomnia acute December 022024 10:28am Recurrent major depressive disorder, in full remission acute Emeka h 2024 10:28am [facility] Work Phone: 1(889) 694-225311-01-2024 Evaluation note* Diagnosis Onset Date Resolution Status Admit Date Allergic contact dermatitis due to clothing acute July 26 8:51am Chronic venous insufficiency of lower extremity acute July 26 8:51am Elevated cholesterol acute [facility] 2023 9:17am Essential (primary) hypertension acu te August 07, 2024 9:17am Gastroesophageal reflux dise ase with esophagitis without hemorrhage acute August 07, 2 024 9:17am Lumbar spondylosis acute [facility] 2023 9:17am Primary insomnia acute August 07, 2024 9:17am Recurrent major depressive disorder, in full remission acute [facility] 2023 9:17am [facility] Work Phone: 1(236) 757-892205-28-2024 Hospital Discharge instructions Patient Education 02/20/2024 16:06:08 [...] include: ?8 oz (237 mL) of milk, bhocnyj-onqktljaaenu-zsixq milk, and calcium- fortifiedfruit juice. Calcium-fortified means [...] ?Spinach (cooked), rhubarb, beets, sweet potatoes, and Palestinian chard. ?Peanuts. ?Potato chips, togolese fries, and baked potatoes with skin on. ?Nuts and nut products. ?Chocolate. If you regularly take a diuretic medicine, make sure to eat at least 1 or 2 servings of fruits or vegetables that are high in potassium each day. These include: ?Avocado. ?Banana. ?[place], prune, carrot, or tomato juice. ?Baked potato. [...] magnesium, fish oil, or vitamin B6. Take wwuc-lnz-dpzyhqc and prescription medicines only as told by [...] Casseroles. Pizza. Lasagna. Frozen meals. Potato chips. Romanian fries. The items listed above may not [...] provider. Document Revised: 12/22/2022 Document Reviewed: 12/22/2022 [employer] Patient Education 2022 [employer]. 02/20/2024 16:06:04 Kidney Stones, Obfz-bn-Bcnz Kidney Stones Kidney stones are rock-like masses [...] Follow these instructions at home: Medicines Take snld-jxb-qpcpdef and prescription medicines only as told by [...] provider. Document Revised: 05/16/2022 Document Reviewed: 05/16/2022 [employer] Patient Education 2022 [employer] [facility] 01-16-2024 Evaluation note* Encounter Date Diagnosis Assessment Notes Treatment Notes Treatment Clinical Notes Sep, COVID-19 (ICD-10 - U07.1) [facility] Other 01-15-2024 Evaluation note* Encounter Date Diagnosis [...] interruption. Instructed to avoid d/c meds abruptly [facility] Other 12-26-2023 Evaluation note* Encounter Date Diagnosis [...] needed - XR to r/o compression fx [facility] Other 12-26-2023 Evaluation note* Encounter Date Diagnosis [...] needed - XR to r/o compression fx [facility] Other 12-20-2023 Evaluation note* Encounter Date Diagnosis Assessment Notes Treatment Notes Treatment Clinical Notes Aug, Nontoxic single thyroid nodule (ICD-10 - E04.1) Serial US w/ stable size and appearance. Referred to ENT w/ no further scans recommended. [facility] Other 10-25-2023 Evaluation note* Encounter Date Diagnosis [...] Amlodipine to 5mg qd while taking Paxlovid [facility] Other 07-17-2023 Evaluation note* Encounter Date Diagnosis [...] SBE and yearly mammogram - due in [facility] Other 05-03-2023 Evaluation note* Encounter Date Diagnosis [...] pneumonia Due for COVID booster and Shingrix [facility] Other 03-14-2023 Evaluation note* Encounter Date Diagnosis [...] or drinking prior to bedtime. Continue PPI [facility] Other 10-19-2022 Hospital Discharge instructions Patient Education 07/13/2022 13:30:11 Kidney Stones, Bxdn-xz-Ylzp Kidney Stones Kidney stones are rock-like masses [...] Follow these instructions at home: Medicines Take ekqg-yck-gjotyjt and prescription medicines only as told by [...] 02/27/2009 Document Revised: 01/28/2020 Document Reviewed: 01/28/2020 [employer] Patient Education 2019 [employer]. Follow Up Care 10/18/2021 12:21:40 With:NOE SHANE PA-C, URL Address: [address] [place] [address] [phone] When: Unknown [facility] 10-19-2022 Evaluation + Plan note Future Scheduled Tests Laboratory* Basic Metabolic Panel 07/13/22 [facility] evaluation + Plan note Future Appointments Appointment Date:02/24/2025 09:15:00 AM Scheduled Provider:Enrique VÁSQUEZ MD Location:[facility] Appointment Type:URO Office Visit [facility] evaluation + Plan note Future Appointments Appointment Date:02/24/2025 09:15:00 AM Scheduled Provider:Enrique VÁSQUEZ MD Location:[facility] Appointment Type:URO Office Visit Diagnostic Tests Pending * [facility]ments Appointment Date:03/02/2026 10:30:00 AM Scheduled Provider:Enrique VÁSQUEZ MD Location:[facility] Appointment Type:URO Office Visit [facility] evaluation noteNo [employer] Other evaluation note* Diagnosis Onset Date Resolution Status Plantar fasciitis of right foot noneactive Right foot pain noneactive [facility] Work Phone: evaluation note* Diagnosis Onset Date Resolution Status Plantar fasciitis of right foot noneactive Right foot pain noneactive Essential (primary) hypertension acute Osteoporosis acute Avulsion fracture of metatarsal bone of right foot noneactive [facility] Work Phone: evaluation note* Diagnosis Onset Date Resolution Status Plantar fasciitis of right foot noneactive Right foot pain noneactive Osteoporosis acute Avulsion fracture of metatarsal bone of right foot noneactive [facility] Work Phone: evaluation note* Diagnosis Onset Date Resolution Status IBS (irritable bowel syndrome) acute Low back pain acute Elevated cholesterol acute Essential (primary) hypertension acute Gastroesophageal reflux dise ase with esophagitis without hemorrhage acute Lumbar spondylosis acute Osteoporosis acute Primary insomnia acute Recurrent major depressive d isorder, in full remission acute Screening mammogram for breast cancer noneactive [facility] Work Phone: evaluation note* Diagnosis Onset Date Resolution Status IBS (irritable bowel syndrome) acute Low back pain acute Elevated cholesterol acute Essential (primary) hypertension acute Gastroesophageal reflux dise ase with esophagitis without hemorrhage acute Lumbar spondylosis acute Primary insomnia acute Recurrent major depressive d isorder, in full remission acute Screening mammogram for breast cancer noneactive Wellness examination noneact betsy [facility] Work Phone: Evaluation noteNo assessment information available [facility] Work Phone: History general Narrative - [...] GENEVA/BSO 2009 Hospitalization History SEE SURGICAL HX [facility] Other [facility] - [facility] course Narrative No data available for this section [facility] Hospital Discharge instructions No data available for this section [facility] No data available for this section [facility] reason for referral (narrative)* Reason Referral for treatme nt of chronic low back pain Diagnosis 1 Acute bilateral low back pain without sciatica (M54.50) Diagnosis 2 Lumbar spondylosis ( M47.816) Referral Organization [facility] Jacey rivas Referring Provider First Name Segun Referring Provider Last Name Sancho Referring Provider Specialty Internal Me dicine Referred Organization [facility] Referred Address [address] [place], [place],[address] Referred Provider Specialty Pain Medicin e Referral [...] for injections. Clinical Notes Include XR results [facility] Other Summary Purpose Family History No Family History Records Found Relationship Condition Age at Onset Recorded Date/T david father Unknown Heart disease Unknown Not Specified Unknown Hypertension Unknown Malignant neoplasm Unknown Relationship Condition Age at Onset Recorded Date/T david father Unknown Heart disease Unknown mother Unknown Hypertension Unknown Malignant neoplasm Unknown Advance Directives No Advanced Directives Records Found Advance Directive Response Recorded Date/ Time Advance [...] in full remission August 07, 2024 9:17am Chief Complaint Admit Date black stool September 24, 2024 10:46am 4 month f/u December 02, 2024 10: 28am Reason for Visit Admit Date Abdominal pain September 24, 2024 10:46am Change in bowel habit September 24 10:46am Elevated cholesterol December 02, 2024 10 :28am Essential (primary) hypertension November 232024 10:28am Gastroesophageal reflux dise ase with esophagitis without hemorrhage December 02, 2024 10:28am Lumbar spondylosis December 02, 2024 10: 28am Primary insomnia December 02, 2024 10: 28am Recurrent major depressive disorder, in full remission December 02, 2024 10:28am Chief Complaint Admit Date 4 month f/u December 02, 2024 10: 28am Allergy Shot January 30, 2025 10:20a m Reason for Visit Admit Date Elevated cholesterol December 02, 2024 10 :28am Essential (primary) hypertension November 232024 10:28am Gastroesophageal reflux dise ase with esophagitis without hemorrhage December 02, 2024 10:28am Lumbar spondylosis December 02, 2024 10: 28am Primary insomnia December 02, 2024 10: 28am Recurrent major depressive disorder, in full remission December 02, 2024 10:28am Rhinitis December 02, 2024 10: 28am Additional Source Comments Patient Care team informatio [...] Dates Segun Kingsley , DO Primary Care Provider Active Start: November [...] 2024 Team Status: Inactive Member Role Status Enedina Kingsley DO Primary Care Provide r, Attending Provider Active Start: February 20, 2024 End: February 20, 2024 Team Status: Inactive Member Role Status Enedina Kingsley DO Attending Provider Active Sta rt: October 09, 2023 End: October 09, 2023 Team Status: Inactive Member Role Status Enedina Kingsley , DO [...] 2024 Team Status: Inactive Member Role Status Enedina Kingsley , DO Primary Care Provide r, Attending Provider Active Start: September 24, 2024 End: September 24, 2024 Team Status: Inactive Member Role Status Enedina Kingsley , DO Primary Care Provide r, Attending Provider Active Start: December 02, 2024 End: December 02, 2024 Team Status: Inactive Member Role Status Enedina Kingsley , DO Primary Care Provide r, Attending Provider Active Start: January 30, 2025 End: January 30, 2025 REASON FOR VISIT (unrecogniz ed section and content) 3 month Follow upPossible Sp rondar [id number] COVID +No Informationback painback painXR results6 monthCOVID + INFORMATION SOURCE (unrecogn ized section and content) DATE CREATED AUTHOR 01/27/2023 [facility] DATE CREATED AUTHOR AUTHOR'S ORGANIZ ATION 09/14/2023 [facility] DATE CREATED AUTHOR AUTHOR'S ORGANIZ ATION 05/07/2024 [facility] DATE CREATED AUTHOR AUTHOR'S ORGANIZ ATION 03/04/2025 [facility] DATE CREATED AUTHOR AUTHOR'S ORGANIZ ATION 03/05/2025 [facility] Goals (unrecognized section and content) Goals [...] BE BASED ON THE PRIMARY CLINICAL RECORDS. [email or web address] [facility]. provides no warranty or guarantee of the accuracy or completeness of information in this document.
== END 2025-03-13 08:27 | disposition home or self-care (01) ==
PROVIDERS: PCP Internal Medicine; Visit Provider Nurse Practitioner
DX: M25.552 Pain in left hip (principal); M46.1 Sacroiliitis, not elsewhere classified
CPT/HCPCS: 72202; 73502

== ENCOUNTER 2025-03-13 13:07 | Outpatient (OUT) | payer OTHER, SELFPAY ==
--- OUTSIDE RECORDS SUMMARY | 2025-03-13 13:14 | XMS_ITS | CCD ---
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 Role Phone SEGUN KINGSLEY Primary Care [...] physicia Propensity to adverse reactions 5 Comment:Done Linkfluence Other (2 sources) No Known Medication Allergies; Translations: [No Known Medication Allergies] Propensity to adverse reactions (disorder) [facility] Repository Medications Current Medications Medication Drug Class(es) Dates Sig (Normalized) Sig (Original) acetaminophen 500 mg oral tablet (4 sources) Start: 05-05-2021 take 500 mg by mouth twice daily Tylenol 500 mg, Oral, BID Start Date: 05/05/21 Status: Ordered Repeat number: 1 [id number] actuat albuterol 0.09 mg/actuat metered dose [...] day(s), # 90 cap(s), Refills(s) 3, Pharmacy: [facility] [id number], 163, cm, 03/03/25 11:35:00 EDT, [...] day(s), # 180 tab(s), Refills(s) 3, [id number], cm, 02/20/24 14:56:00 EDT, Height/Length Dosing, 68.1, kg, 02/20/24 14:56:00 EDT, Weight Dosing Start Date: 04/24/24 Stop Date: 04/19/25 Status: Ordered Quantity: 180.0 Unit: tab(s) Repeat number: 4 Start: 04-10-2023 take 1 tablet by [facility] twice daily Klor-Con/EF 25 mEq oral tablet, effervescent 25 mEq = 1 tab(s), Oral, BID, # 60 tab(s), Refills(s) 11, [id number], cm, 02/13/23 14:27:00 EDT, Height/Length Dosing, 70, kg, 02/13/23 14:27:00 EDT, Weight Dosing Start Date: 04/10/23 Status: Ordered Start: 10-18-2021 take 1 tablet by [facility] twice daily Effer-K 25 mEq oral tablet, effervescent 25 mEq = 1 tab(s), Oral, BID, # 60 tab(s), Refills(s) 8, Pharmacy: [facility] 1155, 163, cm, 10/18/21 11:50:00 EST, [...] 6 Episodic Other aftercare (1 source) 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 8 oz (237 mL) of milk, squljkn-suaahuiqxyel-qz iry milk, and calcium-fortifiedfruit juice. Calcium-fortified means [...] sa (more content not included)... Normal [facility] Ambulatory Visit Summary Ambulatory Visit Summary ZARIA [...] [facility] [address], [place] [address]- Medications What How Much When Instructions Unchanged [...] ? 8 oz (237 mL) of milk, tposucx-yymxnxihnire-vm iry milk, and calcium-fortifiedfruit juice. Calcium-fortified means [...] nee (more content not included)... Normal [facility] Urology Office/Clinic Noteon 03-03-2025 Urology Office/Clinic Note [...] HCTZ 12.5 mg qd, refill sent to [facility] 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 U 24hr Ca 340 H. Citric acid 335 L. Taking Effer-K 25 mEq bid. Cont wo changes. Follow-up With When Contact Information MARCY GRESHAM, Enrique Layne, URL [facility] [address], [place] [address]- Additional Instructions: 1 yr with KUB and [...] adult 04 (more content not included)... Normal [facility] Comment on above: Result Comment: Elec tronically Signed By: Enrique VÁSQUEZ MD\.br\Date and Time Signed: 03/03/25 12:14 EDT\.br\Electronically Co-Signed By: Selma Allen\.br\Date and Time Co-Signed: 03/03/25 12:09 EDT Influenza virus B Ag [Presen ce] in Upper respiratory specimen by Rapid immunoassayon 12-02-2024 FLUBV Ag IA.rapid Ql (Nph) Influenza virus B Ag [Presence] in Upper respiratory specimen by Rapid immunoassay [facility] No Panel Informationon 12-02 Influenza Type A (Rapid) Negative [facility] POC SARS CoV-2 Antigen Negative [facility] Basophils Auto (Bld) [#/Vol] on 09-24-2024 Basophils (Bld) [#/Vol] Automated basophil count 0.0-0.1 [facility] Basophils/100 WBC Auto (Bld) on 09-24-2024 Basophils/100 WBC (Bld) Automated basophil % 0.2-2.0 [facility] Eosinophils/100 WBC Auto (Bl d)on 09-24-2024 Eosinophils/100 WBC (Bld) Automated eosinophil % 0.9-7.0 [facility] Erythrocyte distribution wid th Auto (RBC) [Ratio]on 09-24-2024 Erythrocyte distribution width (RBC) [Ratio] Erythrocyte distribution width [Ratio] by Automated count 11.0-15.0 [facility] Estimated glomerular filtrat ion rate (GFR) non- Americanon 09-24-2024 GFR/1.73 sq M.predicted among non-blacks MDRD (S/P/Bld) [Vol rate/Area] Estimated glomerular filtration rate (GFR) non- >=60 mL/min/1.73m 2 [facility] Globulin Calc (S) [Mass/Vol] on 09-24-2024 Globulin (S) [Mass/Vol] Serum globulin measurement by calculation (mass/volume) [facility] Hematocrit Auto (Bld) [Volum e fraction]on 09-24-2024 Hematocrit (Bld) [Volume fraction] Hematocrit [Volume Fraction] of Blood by Automated count 36.0-48.0 [facility] Hemoglobin [Mass/volume] in Bloodon 09-24-2024 Hemoglobin (Bld) [Mass/Vol] Hemoglobin [Mass/volume] in Blood 12.0-16.0 [facility] Laboratory - Chemistry and C hemistry - challengeon 09-24-2024 Albumin [Mass/Vol] 3.5 g/dL 3.4-5.[address] [facility] ALP [Catalytic activity/Vol] 167 U/L High 46-116 [facility] ALT [Catalytic activity/Vol] 43 U/L 14-59 [facility] Amylase [Catalytic activity/Vol] 44 U/L 25-115 [facility] AST [Catalytic activity/Vol] 29 U/L 15-37 [facility] Bilirubin [Mass/Vol] 0.4 mg/dL 0.2-1.0 [facility] Calcium [Mass/Vol] 9.2 mg/dL 8.5-10.[address] [facility] Chloride [Moles/Vol] 102 mmol/L 98-107 [facility] CO2 [Moles/Vol] 27.8 mmol/L 21.0-32.0 [facility] Creatinine [Mass/Vol] 0.84 mg/dL 0.55-1.02 [facility] GFR/1.73 sq M.predicted MDRD (S/P/Bld) [Vol rate/Area] mL/min/{1.73_m2} >=60 mL/min/1.73m 2 [facility] Glucose [Mass/Vol] 100 mg/dL 74-[address] [facility] Potassium [Moles/Vol] 3.5 mmol/L 3.5-5.1 [facility] Protein [Mass/Vol] 7.7 g/dL 6.4-8.[address] [facility] Sodium [Moles/Vol] 139 mmol/L 136-[address] [facility] Urea nitrogen [Mass/Vol] 14.0 mg/dL 7.0-18.0 [facility] Urea nitrogen/Creatinine [Mass ratio] 16.7 mg/mg [facility] Laboratory - Hematology and Cell countson 09-24-2024 Immature granulocytes/100 WBC (Bld) 0.3 % 0.0-0.5 [facility] Leukocytes [#/volume] correc toby for nucleated erythrocytes in Blood by Automated counon 09-24-2024 WBC corrected for nucl RBC Auto (Bld) [#/Vol] Leukocytes [#/volume] corrected for nucleated erythrocytes in Blood by Automated coun 4.0-11.0 [facility] Lymphocytes Auto (Bld) [#/Vo l]on 09-24-2024 Lymphocytes (Bld) [#/Vol] Lymphocytes [#/volume] in Blood by Automated count 1.2-3.8 [facility] Lymphocytes/100 WBC Auto (Bl d)on 09-24-2024 Lymphocytes/100 WBC (Bld) Lymphocytes/100 leukocytes in Blood by Automated count 20.5-60.0 [facility] MCH Auto (RBC) [Entitic mass ]on 09-24-2024 MCH (RBC) [Entitic mass] MCH [Entitic mass] by Automated count 26.7-34.0 [facility] MCHC Auto (RBC) [Mass/Vol]on 09-24-2024 MCHC (RBC) [Mass/Vol] MCHC [Mass/volume] by Automated count 29.9-35.2 [facility] MCV Auto (RBC) [Entitic vol] on 09-24-2024 MCV (RBC) [Entitic vol] MCV [Entitic volume] by Automated count 81.0-99.0 [facility] Monocytes Auto (Bld) [#/Vol] on 09-24-2024 Monocytes (Bld) [#/Vol] Automated blood monocyte count 0.3-0.8 [facility] Monocytes/100 WBC Auto (Bld) on 09-24-2024 Monocytes/100 WBC (Bld) Automated monocyte % 1.7-12.0 [facility] Neutrophils Auto (Bld) [#/Vo l]on 09-24-2024 Neutrophils (Bld) [#/Vol] Neutrophils [#/volume] in Blood by Automated count High 1.4-6.5 [facility] Neutrophils/100 WBC Auto (Bl d)on 09-24-2024 Neutrophils/100 WBC (Bld) Automated neutrophil % 43.0-75.0 [facility] No Panel Informationon 09-24 Eosinophils # (Auto) 0.2 10 3/uL 0.0-0.7 [facility] Immature Granulocyte # (Auto) 0.03 10 3/uL 0.00-0.03 [facility] Platelet mean volume Auto (B ld) [Entitic vol]on 09-24-2024 Platelet mean volume (Bld) [Entitic vol] Platelet mean volume [Entitic volume] in Blood by Automated count Low 9.5-13.5 [facility] Platelets Auto (Bld) [#/Vol] on 09-24-2024 Platelets (Bld) [#/Vol] Platelets [#/volume] in Blood by Automated count 150-450 [facility] RBC Auto (Bld) [#/Vol]on RBC (Bld) [#/Vol] Erythrocytes [#/volu me] in Blood by Automated count 4.20-5.40 [facility] Serum or plasma albumin/glob ulin mass ratioon 09-24-2024 Albumin/Globulin [Mass ratio] Serum or plasma albumin/globulin mass ratio [facility] Serum or plasma anion gap de terminationon 09-24-2024 Anion gap [Moles/Vol] Serum or plasma anion gap determination [facility] Basophils Auto (Bld) [#/Vol] on 05-06-2024 Basophils (Bld) [#/Vol] 0.1 10 3/uL 0.0-0.1 [facility] Basophils/100 WBC Auto (Bld) on 05-06-2024 Basophils/100 WBC (Bld) 0.5 % 0.2-2.0 [facility] Eosinophils/100 WBC Auto (Bl d)on 05-06-2024 Eosinophils/100 WBC (Bld) 3.0 % 0.9-7.0 [facility] Erythrocyte distribution wid th Auto (RBC) [Ratio]on 05-06-2024 Erythrocyte distribution width (RBC) [Ratio] 15.0 % 11.0-15.0 [facility] Glucose mean value [Mass/vol ume] in Blood Estimated from glycated hemoglobinon 05-06-2024 Average glucose Estimated from glycated hemoglobin (Bld) [Mass/Vol] 117 mg/dL [facility] Hematocrit Auto (Bld) [Volum e fraction]on 05-06-2024 Hematocrit (Bld) [Volume fraction] 41.1 % 36.0-48.0 [facility] Hemoglobin [Mass/volume] in Bloodon 05-06-2024 Hemoglobin (Bld) [Mass/Vol] 13.2 g/dL 12.0-16.0 [facility] Say 05-06-2024 L Specimen: Received: 05/06/24 Status: SOUGuru Rechrissy Num: [id number] Spec Type: Impression Subm Dr: Segun Kingsley DO Tissues: PATHPER Procedures: PATHREVIEW Age/ Patient Sex Location Account Attending Physician UniqueZaria suero 68/F LABE[facility] [id number] Segun Kingsley DO SPEC NUM: [id number] RECD: 05/06/24 STATUS: MARY RODGERS NUM: [id number] KYRIE: 05/06/[address]: Segun Kingsley DO ENTERED: 05/06/[address] [facility] [address]: Milagro [place] SPEC TYPE: Impression DEPT: GARRETT Myles ENTERED BY: [id number] RECV BY: [id number] ORDERED: PATHREVIEW ORDERED: PATHREVIEW Pathologist Review Abnormal [...] inflammation, or underlying infection requiring clinical correlations [facility]:[id number] Specimen: [id number] Received: 05/06/24-0 Status: MARY Rodgers Num: [id number] Spec Type: Impression Subm Dr: Segun Kingsley DO Tissues: PATHPER Procedures: PATHREVIEW Patient: Zaria Corona [id number] (Continued) Signed (signature on file) Qasim Feng MD 05/07/[address] [facility] Laboratory - Hematology and Cell countson 05-06-2024 HbA1c (Bld) [Mass fraction] 5.7 % 4.5-6.2 [facility] Comment on above: ADA RECOMMENDED LIMI T 4.0 - 6.0ADA THERAPEUTIC TARGET < 7.0ACTION SUGGESTED> 7.0 Immature granulocytes/100 WBC (Bld) 0.7 % High 0.0-0.5 [facility] Leukocytes [#/volume] correc toby for nucleated erythrocytes in Blood by Automated counon 05-06-2024 WBC corrected for nucl RBC Auto (Bld) [#/Vol] 13.2 10 3/uL High 4.0-11.0 [facility] Lymphocytes Auto (Bld) [#/Vo l]on 05-06-2024 Lymphocytes (Bld) [#/Vol] 2.7 10 3/uL 1.2-3.8 [facility] Lymphocytes/100 WBC Auto (Bl d)on 05-06-2024 Lymphocytes/100 WBC (Bld) 20.6 % 20.5-60.0 [facility] MCH Auto (RBC) [Entitic mass ]on 05-06-2024 MCH (RBC) [Entitic mass] 27.9 pg 26.7-34.0 [facility] MCHC Auto (RBC) [Mass/Vol]on 05-06-2024 MCHC (RBC) [Mass/Vol] 32.1 g/dL 29.9-35.2 [facility] MCV Auto (RBC) [Entitic vol] on 05-06-2024 MCV (RBC) [Entitic vol] 86.9 fL 81.0-99.0 [facility] Monocytes Auto (Bld) [#/Vol] on 05-06-2024 Monocytes (Bld) [#/Vol] 0.7 10 3/uL 0.3-0.8 [facility] Monocytes/100 WBC Auto (Bld) on 05-06-2024 Monocytes/100 WBC (Bld) 5.0 % 1.7-12.0 [facility] Neutrophils Auto (Bld) [#/Vo l]on 05-06-2024 Neutrophils (Bld) [#/Vol] 9.3 10 3/uL High 1.4-6.5 [facility] Neutrophils/100 WBC Auto (Bl d)on 05-06-2024 Neutrophils/100 WBC (Bld) 70.2 % 43.0-75.0 [facility] No Panel Informationon 05-06 Add Manual Differential See comment [facility] Comment on above: SEE SCANNED REPORT Eosinophils # (Auto) 0.4 10 3/uL 0.0-0.7 [facility] Immature Granulocyte # (Auto) 0.09 10 3/uL High 0.00-0.03 [facility] Platelet mean volume Auto (B ld) [Entitic vol]on 05-06-2024 Platelet mean volume (Bld) [Entitic vol] 8.5 fL Low 9.5-13.5 [facility] Platelets Auto (Bld) [#/Vol] on 05-06-2024 Platelets (Bld) [#/Vol] 419 10 3/uL 150-450 [facility] RBC Auto (Bld) [#/Vol]on RBC (Bld) [#/Vol] 4.73 10 6/uL 4.20-5.[address] [facility] Basophils Auto (Bld) [#/Vol] on 05-01-2024 Basophils (Bld) [#/Vol] 0.1 10 3/uL 0.0-0.1 [facility] Basophils/100 WBC Auto (Bld) on 05-01-2024 Basophils/100 WBC (Bld) 0.3 % 0.2-2.0 [facility] Cholesterol in LDL Calc [Mas s/Vol]on 05-01-2024 Cholesterol in LDL [Mass/Vol] 56.0 mg/dL [facility] Comment on above: <100 mg/dl [id number] 0-129 mg/dl NEAR OR ABOVE [id number] mg/dl BORDERLINE [id number] mg/dl HIGH>190 mg/dl VERY HIGH Cholesterol in VLDL Calc [Ma ss/Vol]on 05-01-2024 Cholesterol in VLDL [Mass/Vol] 21.0 mg/dL [facility] Eosinophils/100 WBC Auto (Bl d)on 05-01-2024 Eosinophils/100 WBC (Bld) 0.6 % Low 0.9-7.0 [facility] Erythrocyte distribution wid th Auto (RBC) [Ratio]on 05-01-2024 Erythrocyte distribution width (RBC) [Ratio] 15.3 % High 11.0-15.0 [facility] Estimated glomerular filtrat ion rate (GFR) non- Americanon 05-01-2024 GFR/1.73 sq M.predicted among non-blacks MDRD (S/P/Bld) [Vol rate/Area] mL/min/{1.73_m2} >=60 [facility] Globulin Calc (S) [Mass/Vol] on 05-01-2024 Globulin (S) [Mass/Vol] 4.7 g/dL [facility] Hematocrit Auto (Bld) [Volum e fraction]on 05-01-2024 Hematocrit (Bld) [Volume fraction] 40.0 % 36.0-48.0 [facility] Hemoglobin [Mass/volume] in Bloodon 05-01-2024 Hemoglobin (Bld) [Mass/Vol] 12.9 g/dL 12.0-16.0 [facility] Laboratory - Chemistry and C hemistry - challengeon 05-01-2024 Albumin [Mass/Vol] 3.3 g/dL Low 3.4-5.[address] [facility] ALP [Catalytic activity/Vol] 157 U/L High 46-116 [facility] ALT [Catalytic activity/Vol] 22 U/L 14-59 [facility] AST [Catalytic activity/Vol] 17 U/L 15-37 [facility] Bilirubin [Mass/Vol] 0.6 mg/dL 0.2-1.0 [facility] Calcium [Mass/Vol] 9.1 mg/dL 8.5-10.[address] [facility] Chloride [Moles/Vol] 99 mmol/L 98-107 [facility] Cholesterol [Mass/Vol] 155 mg/dL <=200 [facility] Cholesterol in HDL [Mass/Vol] 78 mg/dL High 40-60 [facility] Comment on above: > or =60 mg/dl - LOW CARDIOVASCULAR RISK<40 mg/dl - HIGH CARDIOVASCULAR RISK CO2 [Moles/Vol] 27.0 mmol/L 21.0-32.0 [facility] Creatinine [Mass/Vol] 0.70 mg/dL 0.55-1.02 [facility] GFR/1.73 sq M.predicted MDRD (S/P/Bld) [Vol rate/Area] mL/min/{1.73_m2} >=60 [facility] Glucose [Mass/Vol] 124 mg/dL High 74-[address] [facility] Potassium [Moles/Vol] 3.3 mmol/L Low 3.5-5.1 [facility] Protein [Mass/Vol] 8.0 g/dL 6.4-8.[address] [facility] Sodium [Moles/Vol] 136 mmol/L 136-[address] [facility] Triglyceride [Mass/Vol] 105 mg/dL <=150 [facility] Urea nitrogen [Mass/Vol] 15.0 mg/dL 7.0-18.0 [facility] Urea nitrogen/Creatinine [Mass ratio] 21.4 mg/mg [facility] Laboratory - Hematology and Cell countson 05-01-2024 Immature granulocytes/100 WBC (Bld) 0.5 % 0.0-0.5 [facility] Leukocytes [#/volume] correc toby for nucleated erythrocytes in Blood by Automated counon 05-01-2024 WBC corrected for nucl RBC Auto (Bld) [#/Vol] 19.0 10 3/uL High 4.0-11.0 [facility] Lymphocytes Auto (Bld) [#/Vo l]on 05-01-2024 Lymphocytes (Bld) [#/Vol] 2.0 10 3/uL 1.2-3.8 [facility] Lymphocytes/100 WBC Auto (Bl d)on 05-01-2024 Lymphocytes/100 WBC (Bld) 10.3 % Low 20.5-60.0 [facility] MCH Auto (RBC) [Entitic mass ]on 05-01-2024 MCH (RBC) [Entitic mass] 27.6 pg 26.7-34.0 [facility] MCHC Auto (RBC) [Mass/Vol]on 05-01-2024 MCHC (RBC) [Mass/Vol] 32.3 g/dL 29.9-35.2 [facility] MCV Auto (RBC) [Entitic vol] on 05-01-2024 MCV (RBC) [Entitic vol] 85.7 fL 81.0-99.0 [facility] Monocytes Auto (Bld) [#/Vol] on 05-01-2024 Monocytes (Bld) [#/Vol] 1.2 10 3/uL High 0.3-0.8 [facility] Monocytes/100 WBC Auto (Bld) on 05-01-2024 Monocytes/100 WBC (Bld) 6.2 % 1.7-12.0 [facility] Neutrophils Auto (Bld) [#/Vo l]on 05-01-2024 Neutrophils (Bld) [#/Vol] 15.6 10 3/uL High 1.4-6.5 [facility] Neutrophils/100 WBC Auto (Bl d)on 05-01-2024 Neutrophils/100 WBC (Bld) 82.1 % High 43.0-75.0 [facility] No Panel Informationon 05-01 Eosinophils # (Auto) 0.1 10 3/uL 0.0-0.7 [facility] Immature Granulocyte # (Auto) 0.09 10 3/uL High 0.00-0.03 [facility] Platelet mean volume Auto (B ld) [Entitic vol]on 05-01-2024 Platelet mean volume (Bld) [Entitic vol] 9.1 fL Low 9.5-13.5 [facility] Platelets Auto (Bld) [#/Vol] on 05-01-2024 Platelets (Bld) [#/Vol] 346 10 3/uL 150-450 [facility] RBC Auto (Bld) [#/Vol]on RBC (Bld) [#/Vol] 4.67 10 6/uL 4.20-5.[address] [facility] Serum or plasma albumin/glob ulin mass ratioon 05-01-2024 Albumin/Globulin [Mass ratio] 0.7 {ratio} [facility] Serum or plasma anion gap de terminationon 05-01-2024 Anion gap [Moles/Vol] 13.3 mmol/L [facility] Serum or plasma total choles terol/high density lipoprotein (HDL) cholesterol mass franklin 05-01-2024 Cholesterol.total/Ch olesterol in HDL [Mass ratio] 2.0 {ratio} [facility] Comment on above: 3.3 - 4.4 LOW RISK4. 4 - 7.1 AVERAGE RISK7.1 - 11.0 MODERATE RISK>11.0 H[facility] Laboratory - Chemistry and C hemistry - challengeon 02-08-2024 Chloride [Moles/Vol] 102 mmol/L 98-107 [facility] CO2 [Moles/Vol] 28.0 mmol/L 21.0-32.0 [facility] Potassium [Moles/Vol] 4.0 mmol/L 3.5-5.1 [facility] Sodium [Moles/Vol] 138 mmol/L 136-[address] [facility] Serum or plasma anion gap de terminationon 02-08-2024 Anion gap [Moles/Vol] 12.0 mmol/L [facility] XR KUB 1 VIEWon 01-20-2023 XR [...] ERNANDEZ Date: 2023-01-20 11:11 Normal [facility] ELECTROLYTESon 10-27-2022 Anion gap [Moles/Vol] 12.4 mmol/L Normal [facility] Comment on above: Performed By: #### P THINT #### [facility] [address] [address] [address] Alejandrina Feng Chloride [Moles/Vol] 102 mmol/L Normal 98-107 [facility] Comment on above: Performed By: #### P THINT #### [facility] [address] [place] [address] Dr. Alejandrina Feng CO2 [Moles/Vol] 28.5 mmol/L Normal 21.0-32.0 [facility] Comment on above: Performed By: #### P THINT #### [facility] [address] [address] [address] Alejandrina Feng Potassium [Moles/Vol] 3.9 mmol/L Normal 3.5-5.1 [facility] Comment on above: Performed By: #### P THINT #### [facility] [address] [address] [address] Alejandrina Feng Sodium [Moles/Vol] 139 mmol/L Normal 136-145 [facility] Comment on above: Performed By: #### P THINT #### [facility] [address] [address] [address] Alejandrina Feng US THYROIDon 08-29-2022 US [...] thyroid stable. TR 3 nodule TI-RADS: The [employer] TI-RADS committee's white paper recommendations for thyroid lesions classified as TR3 (mildly suspicious) are listed below: > 1.5 cm. Follow-up ultrasound in 1, 3, and 5 years. > 2.5 cm. FNA. J. Am Kyrie Radiol 2017;14:587-595. Electronically authenticated by: EVERETT ERNANDEZ Date: 2022-08-29 07:19 Normal [facility] XR KUB 1 VIEWon 07-14-2022 XR [...] BACH Date: 2022-07-14 06:26 Normal [facility] ELECTROLYTESon 07-13-2022 Anion gap [Moles/Vol] 9.0 mmol/L Normal [facility] Comment on above: Performed By: #### E LEC #### [facility] [address] [place], [place] [address] Dr. Alejandrina Feng Chloride [Moles/Vol] 101 mmol/L Normal 98-107 [facility] Comment on above: Performed By: #### E LEC #### [facility] [address] [place], [place] [address] Dr. Alejandrina Feng CO2 [Moles/Vol] 27.5 mmol/L Normal 21.0-32.0 [facility] Comment on above: Performed By: #### E LEC #### [facility] [address] [place], [place] [address] Dr. Alejandrina Feng Potassium [Moles/Vol] 3.5 mmol/L Normal 3.5-5.1 [facility] Comment on above: Performed By: #### E LEC #### [facility] [address] [place], [place] [address] Dr. Alejandrina Feng Sodium [Moles/Vol] 134 mmol/L Critically low 136-145 [facility] Comment on above: Performed By: #### E LEC #### [facility] [address] [address] [address] Alejandrina Feng MG MAMM SCREEN 3D TUSHAR CADon 07-06-2022 MG MAMM SCREEN 3D TUSHAR CAD Patient: ZARIA CORONA Exam Date: 07/06/2022 : 1955 Gender:F Ordering : DR SEGUN KINGSLEY D.O. Admission #: [id number] Family : Order #: [id number] CLICK HERE TO VIEW EXAM RADIOLOGY REPORT [...] # 0.1 103/ul Normal 0.0-0.1 [facility] Comment on above: Performed By: #### C BC #### [facility] [address] [address] [address] Alejandrina Feng Basophils/100 WBC (Bld) 0.4 % Normal 0.2-2.0 [facility] Comment on above: Performed By: #### C BC #### [facility] [address] [address] [address] Alejandrina Feng EO # 0.1 103/ul Normal 0.0-0.7 [facility] Comment on above: Performed By: #### C BC #### [facility] [address] [address] [address] Alejandrina Feng Eosinophils/100 WBC (Bld) 0.6 % Critically low 0.9-7.0 [facility] Comment on above: Performed By: #### C BC #### [facility] [address] [address] [address] Alejandrina Feng Erythrocyte distribution width (RBC) [Ratio] 14.6 % Normal 11.0-15.0 [facility] Comment on above: Performed By: #### C BC #### [facility] [facility] [address] [place] [address] Dr. Alejandrina Feng Hematocrit (Bld) [Volume fraction] 43.6 % Normal 36.0-48.0 [facility] Comment on above: Performed By: #### C BC #### [facility] [address] [address] [address] Alejandrina Feng Hemoglobin (Bld) [Mass/Vol] 14.1 g/dL Normal 12.0-16.0 [facility] Comment on above: Performed By: #### C BC #### [facility] [address] [address] [address] Alejandrina Feng IG # 0.07 10e3/ul Critically high 0.00-0.03 [facility] Comment on above: Performed By: #### C BC #### [facility] [address] [address] [address] Alejandrina Feng IG % 0.6 % Critically high 0.0-0.5 [facility] Comment on above: Performed By: #### C BC #### [facility] [address] [place] [address] Dr. Alejandrina Feng LYMPH # 1.6 103/ul Normal 1.2-3.8 [facility] Comment on above: Performed By: #### C BC #### [facility] [address] [place] [address] Dr. Alejandrina eFng Lymphocytes/100 WBC (Bld) 12.4 % Critically low 20.5-60.0 [facility] Comment on above: Performed By: #### C BC #### [facility] [address] [place] [address] Dr. Alejandrina Feng MANUAL DIFF REQ NO Normal [facility] Comment on above: Performed By: #### C BC #### [facility] [address] [place] [address] Dr. Alejandrina Feng MCH (RBC) [Entitic mass] 27.9 pg Normal 26.7-34.0 [facility] Comment on above: Performed By: #### C BC #### [facility] [address] [place] [address] Dr. Alejandrina Feng MCHC (RBC) [Mass/Vol] 32.3 g/dL Normal 29.9-35.2 [facility] Comment on above: Performed By: #### C BC #### [facility] [address] [place] [address] Dr. Alejandrina Feng MCV (RBC) [Entitic vol] 86.3 fL Normal 81.0-99.0 [facility] Comment on above: Performed By: #### C BC #### [facility] [address] [place] [address] Dr. Alejandrina Feng MONO # 0.9 103/ul Critically high 0.3-0.8 [facility] Comment on above: Performed By: #### C BC #### [facility] [address] [place] [address] Dr. Alejandrina Feng Monocytes/100 WBC (Bld) 7.2 % Normal 1.7-12.0 [facility] Comment on above: Performed By: #### C BC #### [facility] [address] [place] [address] Dr. Alejandrina Feng NEUT # 10.0 103/ul Critically high 1.4-6.5 [facility] Comment on above: Performed By: #### C BC #### [facility] [address] [place] [address] Dr. Alejandrina Feng Neutrophils/100 WBC (Bld) 78.8 % Critically high 43.0-75.0 [facility] Comment on above: Performed By: #### C BC #### [facility] [address] [place] [address] Dr. Alejandrina Feng Platelet mean volume (Bld) [Entitic vol] 8.8 fL Critically low 9.5-13.5 [facility] Comment on above: Performed By: #### C BC #### [facility] [address] [place] [address] Dr. Alejandrina Feng PLT 404 103/ul Normal 150-450 [facility] Comment on above: Performed By: #### C BC #### [facility] [address] [place] [address] Dr. Alejandrina Feng RBC 5.05 106/ul Normal 4.20-5.40 [facility] Comment on above: Performed By: #### C BC #### [facility] [address] [place] [address] Dr. Alejandrina Feng WBC 12.7 103/ul Critically high 4.0-11.0 [facility] Comment on above: Performed By: #### C BC #### [facility] [address] [place] [address] Dr. Alejandrina Feng PROF 14(COMP METB)on 022 Albumin [Mass/Vol] 3.6 g/dL Normal 3.4-5.0 [facility] Comment on above: Performed By: #### C MP, TSH #### [facility] [address] [address] [address] Alejandrina Feng Albumin/Globulin [Mass ratio] 0.8 {ratio} Normal [facility] Comment on above: Performed By: #### C MP, TSH #### [facility] [address] [address] [address] Alejandrina Feng ALP [Catalytic activity/Vol] 182 U/L Critically high 46-116 [facility] Comment on above: Performed By: #### C MP, TSH #### [facility] [address] [address] [address] Alejandrina Feng ALT [Catalytic activity/Vol] 29 U/L Normal 14-59 [facility] Comment on above: Performed By: #### C MP, TSH #### [facility] [address] [place] [address] Dr. Alejandrina Feng Anion gap [Moles/Vol] 13.4 mmol/L Normal [facility] Comment on above: Performed By: #### C MP, TSH #### [facility] [address] [place] [address] Dr. Alejandrina Feng AST [Catalytic activity/Vol] 22 U/L Normal 15-37 [facility] Comment on above: Performed By: #### C MP, TSH #### [facility] [address] [place] [address] Dr. Alejandrina Feng Bilirubin [Mass/Vol] 0.5 mg/dL Normal 0.2-1.0 [facility] Comment on above: Performed By: #### C MP, TSH #### [facility] [address] [address] [address] Alejandrina Feng Calcium [Mass/Vol] 9.3 mg/dL Normal 8.5-10.1 [facility] Comment on above: Performed By: #### C MP, TSH #### [facility] [address] [address] [address] Alejandrina Feng Chloride [Moles/Vol] 102 mmol/L Normal 98-107 [facility] Comment on above: Performed By: #### C MP, TSH #### [facility] [address] [address] [address] Alejandrina Feng CO2 [Moles/Vol] 26.2 mmol/L Normal 21.0-32.0 [facility] Comment on above: Performed By: #### C MP, TSH #### [facility] [address] [address] [address] Alejandrina Feng Creatinine [Mass/Vol] 0.94 mg/dL Normal 0.55-1.02 [facility] Comment on above: Performed By: #### C MP, TSH #### [facility] [address] [address] [address] Alejandrina Feng EGFR-AF AUSTRALIAN >60 Normal >=60 [facility] Comment on above: Performed By: #### C MP, TSH #### [facility] [address] [address] [address] Alejandrina Feng EGFR-NON AF AUSTRALIAN 59 mL/min/1.73m2 Critically low >=60 [facility] Comment on above: Performed By: #### C MP, TSH #### [facility] [address] [address] [address] Alejandrina Feng Globulin (S) [Mass/Vol] 4.3 g/dL Normal [facility] Comment on above: Performed By: #### C MP, TSH #### [facility] [address] [address] [address] Alejandrina Feng Glucose [Mass/Vol] 101 mg/dL Normal 74-106 [facility] Comment on above: Performed By: #### C MP, TSH #### [facility] [address] [address] [address] Alejandrina Feng Potassium [Moles/Vol] 4.6 mmol/L Normal 3.5-5.1 [facility] Comment on above: Performed By: #### C MP, TSH #### [facility] [address] [address] [address] Alejandrina Feng Protein [Mass/Vol] 7.9 g/dL Normal 6.4-8.2 [facility] Comment on above: Performed By: #### C MP, TSH #### [facility] [address] [address] [address] Alejandrina Feng Sodium [Moles/Vol] 137 mmol/L Normal 136-145 [facility] Comment on above: Performed By: #### C MP, TSH #### [facility] [address] [address] [address] Alejandrina Feng Urea nitrogen [Mass/Vol] 19.0 mg/dL Critically high 7.0-18.0 [facility] Comment on above: Performed By: #### C MP, TSH #### [facility] [address] [place] [address] Dr. Alejandrina Feng Urea nitrogen/Creatinine [Mass ratio] 20.2 mg/mg Normal [facility] Comment on above: Performed By: #### C MP, TSH #### [facility] [address] [place] [address] Dr. Alejandrina Feng TSHon 06-20-2022 TSH 0.854 uIU/mL Normal 0.358-3.740 [facility] Comment on above: Performed By: #### C MP, TSH #### [facility] [address] [place] [address] Dr. Alejandrina Feng Covid-19 PCR ([facility])on 02-23 SARS-CoV-2 (COVID-19) RNA JACKSON+probe Ql (Unsp spec) Not detected Normal NOT DETECTED [facility] Comment on above: Result Comment: When [...] for this test is supported by the [place] of Health and Human Service's declaration that [...] BC #### [facility] [address] [place] [address] Dr. Alejandrina Feng ELECTROLYTESon 03-09-2022 Anion gap [Moles/Vol] 14.8 mmol/L Normal [facility] Comment on above: Performed By: #### E LEC #### [facility] [address] [place] [address] Dr. Alejandrina Feng Chloride [Moles/Vol] 103 mmol/L Normal 98-107 [facility] Comment on above: Performed By: #### E LEC #### [facility] [address] [place] [address] Dr. Alejandrina Feng CO2 [Moles/Vol] 25.2 mmol/L Normal 21.0-32.0 [facility] Comment on above: Performed By: #### E LEC #### [facility] [address] [place] [address] Dr. Alejandrina Feng Potassium [Moles/Vol] 4.0 mmol/L Normal 3.5-5.1 [facility] Comment on above: Performed By: #### E LEC #### [facility] [address] [place] [address] Dr. Alejandrina Feng Sodium [Moles/Vol] 139 mmol/L Normal 136-145 [facility] Comment on above: Performed By: #### E LEC #### [facility] [address] [place] [address] Dr. Alejandrina Feng Covid-19 PCR ([facility])on SARS-CoV-2 [...] for this test is supported by the [place] of Health and Human Service's (HHS's) declaration [...] VDTBH #### [facility] [address] [place] [address] Dr. Alejandrina Feng BNPon 02-22-2022 Natriuretic peptide B (Bld) [Mass/Vol] 60.0 pg/mL Normal <=900.0 [facility] Comment on above: Performed By: #### P THINT #### [facility] [address] [place] [address] Dr. Alejandrina Feng CBC AUTO DIFFon 02-22-2022 BASO # 0.1 103/ul Normal 0.0-0.1 [facility] Comment on above: Performed By: #### C BC #### [facility] [address] [place] [address] Dr. Alejandrina Feng Basophils/100 WBC (Bld) 0.4 % Normal 0.2-2.0 [facility] Comment on above: Performed By: #### C BC #### [facility] [address] [place] [address] Dr. Alejandrina Feng EO # 0.2 103/ul Normal 0.0-0.7 [facility] Comment on above: Performed By: #### C BC #### [facility] [address] [place] [address] Dr. Alejandrina Feng Eosinophils/100 WBC (Bld) 1.4 % Normal 0.9-7.0 [facility] Comment on above: Performed By: #### C BC #### [facility] [address] [place] [address] Dr. Alejandrina Feng Erythrocyte distribution width (RBC) [Ratio] 13.3 % Normal 11.0-15.0 [facility] Comment on above: Performed By: #### C BC #### [facility] [address] [place] [address] Dr. Alejandrina Feng Hematocrit (Bld) [Volume fraction] 45.1 % Normal 36.0-48.0 [facility] Comment on above: Performed By: #### C BC #### [facility] [address] [place] [address] Dr. Alejandrina Feng Hemoglobin (Bld) [Mass/Vol] 14.4 g/dL Normal 12.0-16.0 [facility] Comment on above: Performed By: #### C BC #### [facility] [address] [place] [address] Dr. Alejandrina Feng IG # 0.05 10e3/ul Critically high 0.00-0.03 [facility] Comment on above: Performed By: #### C BC #### [facility] [address] [place] [address] Dr. Alejandrina Feng IG % 0.4 % Normal 0.0-0.5 [facility] Comment on above: Performed By: #### C BC #### [facility] [address] [place] [address] Dr. Alejandrina Feng LYMPH # 1.6 103/ul Normal 1.2-3.8 [facility] Comment on above: Performed By: #### C BC #### [facility] [address] [place] [address] Dr. Alejandrina Feng Lymphocytes/100 WBC (Bld) 11.2 % Critically low 20.5-60.0 [facility] Comment on above: Performed By: #### C BC #### [facility] [address] [place] [address] Dr. Alejandrina Feng MANUAL DIFF REQ NO Normal [facility] Comment on above: Performed By: #### C BC #### [facility] [address] [place] [address] Dr. Alejandrina Feng MCH (RBC) [Entitic mass] 28.0 pg Normal 26.7-34.0 [facility] Comment on above: Performed By: #### C BC #### [facility] [address] [place] [address] Dr. Alejandrina Feng MCHC (RBC) [Mass/Vol] 31.9 g/dL Normal 29.9-35.2 [facility] Comment on above: Performed By: #### C BC #### [facility] [address] [place] [address] Dr. Alejandrina Feng MCV (RBC) [Entitic vol] 87.6 fL Normal 81.0-99.0 [facility] Comment on above: Performed By: #### C BC #### [facility] [address] [place] [address] Dr. Alejandrina Feng MONO # 0.6 103/ul Normal 0.3-0.8 [facility] Comment on above: Performed By: #### C BC #### [facility] [address] [place] [address] Dr. Alejandrina Feng Monocytes/100 WBC (Bld) 4.5 % Normal 1.7-12.0 [facility] Comment on above: Performed By: #### C BC #### [facility] [address] [place] [address] Dr. Alejandrina Feng NEUT # 11.4 103/ul Critically high 1.4-6.5 [facility] Comment on above: Performed By: #### C BC #### [facility] [address] [place] [address] Dr. Alejandrina Feng Neutrophils/100 WBC (Bld) 82.1 % Critically high 43.0-75.0 [facility] Comment on above: Performed By: #### C BC #### [facility] [address] [place] [address] Dr. Alejandrina Feng Platelet mean volume (Bld) [Entitic vol] 9.1 fL Critically low 9.5-13.5 [facility] Comment on above: Performed By: #### C BC #### [facility] [address] [place] [address] Dr. Aleajndrina Feng PLT 363 103/ul Normal 150-450 [facility] Comment on above: Performed By: #### C BC #### [facility] [address] [address] [address] Alejandrina Feng RBC 5.15 106/ul Normal 4.20-5.40 [facility] Comment on above: Performed By: #### C BC #### [facility] [address] [address] [address] Alejandrina Feng WBC 13.9 103/ul Critically high 4.0-11.0 [facility] Comment on above: Performed By: #### C BC #### [facility] [address] [address] [address] Alejandrina Feng PROF 14(COMP METB)on 022 Albumin [Mass/Vol] 4.0 g/dL Normal 3.4-5.0 [facility] Comment on above: Performed By: #### P THINT #### [facility] [address] [place] [address] Dr. Alejandrina Feng Albumin/Globulin [Mass ratio] 0.8 {ratio} Normal [facility] Comment on above: Performed By: #### P THINT #### [facility] [address] [place] [address] Dr. Alejandrina Feng ALP [Catalytic activity/Vol] 200 U/L Critically high 46-116 [facility] Comment on above: Performed By: #### P THINT #### [facility] [address] [place] [address] Dr. Alejandrina Feng ALT [Catalytic activity/Vol] 29 U/L Normal 14-59 [facility] Comment on above: Performed By: #### P THINT #### [facility] [address] [address] [address] Alejandrina Feng Anion gap [Moles/Vol] 12.2 mmol/L Normal [facility] Comment on above: Performed By: #### P THINT #### [facility] [address] [place] [address] Dr. Alejandrina Feng AST [Catalytic activity/Vol] 25 U/L Normal 15-37 [facility] Comment on above: Performed By: #### P THINT #### [facility] [address] [address] [address] Alejandrina Feng Bilirubin [Mass/Vol] 0.4 mg/dL Normal 0.2-1.0 [facility] Comment on above: Performed By: #### P THINT #### [facility] [address] [address] [address] Alejandrina Feng Calcium [Mass/Vol] 9.5 mg/dL Normal 8.5-10.1 [facility] Comment on above: Performed By: #### P THINT #### [facility] [address] [address] [address] Alejandrina Feng Chloride [Moles/Vol] 101 mmol/L Normal 98-107 [facility] Comment on above: Performed By: #### P THINT #### [facility] [address] [place] [address] Dr. Alejandrina Feng CO2 [Moles/Vol] 25.8 mmol/L Normal 21.0-32.0 [facility] Comment on above: Performed By: #### P THINT #### [facility] [address] [place] [address] Dr. Alejandrina Feng Creatinine [Mass/Vol] 0.69 mg/dL Normal 0.55-1.02 [facility] Comment on above: Performed By: #### P THINT #### [facility] [address] [place] [address] Dr. Alejandrina Feng EGFR-AF AUSTRALIAN >60 Normal >=60 [facility] Comment on above: Performed By: #### P THINT #### [facility] [address] [address] [address] Alejandrina Feng EGFR-NON AF AUSTRALIAN >60 Normal >=60 [facility] Comment on above: Performed By: #### P THINT #### [facility] [address] [place] [address] Dr. Alejandrina Feng Globulin (S) [Mass/Vol] 4.8 g/dL Normal [facility] Comment on above: Performed By: #### P THINT #### [facility] [address] [address] [address] Alejandrina Feng Glucose [Mass/Vol] 96 mg/dL Normal 74-106 [facility] Comment on above: Performed By: #### P THINT #### [facility] [address] [address] [address] Alejandrina Feng Potassium [Moles/Vol] 4.0 mmol/L Normal 3.5-5.1 [facility] Comment on above: Performed By: #### P THINT #### [facility] [address] [address] [address] Alejandrina Feng Protein [Mass/Vol] 8.8 g/dL Critically high 6.4-8.2 [facility] Comment on above: Performed By: #### P THINT #### [facility] [address] [address] [address] Alejandrina Feng Sodium [Moles/Vol] 135 mmol/L Critically low 136-145 [facility] Comment on above: Performed By: #### P THINT #### [facility] [address] [address] [address] Alejandrina Feng Urea nitrogen [Mass/Vol] 18.0 mg/dL Normal 7.0-18.0 [facility] Comment on above: Performed By: #### P THINT #### [facility] [address] [address] [address] Alejandrina Feng Urea nitrogen/Creatinine [Mass ratio] 26.1 mg/mg Normal [facility] Comment on above: Performed By: #### P THINT #### [facility] [address] [address] [address] Alejandrina Feng TROPONIN, HIGH SENSITIVITYon 02-22-2022 HSTROP 7.4 pg/mL Normal 4.0-51.3 [facility] Comment on above: Result Comment: CUT- OFF POINTS HAVE BEEN ESTABLISHED BASED ON THE FOURTH UNIVERSAL DEFINITIONS OF MYOCARDIAL INFARCTION. THE UPPER REFERENCE LIMIT (URL) OF TROPONIN, DEFINED THE 99TH PERCENTILE OF cTnI DISTRIBUTION IN A REFERENCE POPULATION, HAS BEEN CONFIRMED THE DECISION THRESHOLD FOR [place] DIAGNOSIS. Performed By: #### H STROPN #### [facility] [address] [place] [address] Dr. Alejandrina Feng HSTROP 6.4 pg/mL Normal 4.0-51.3 [facility] Comment on above: Result Comment: CUT- OFF POINTS HAVE BEEN ESTABLISHED BASED ON THE FOURTH UNIVERSAL DEFINITIONS OF MYOCARDIAL INFARCTION. THE UPPER REFERENCE LIMIT (URL) OF TROPONIN, DEFINED THE 99TH PERCENTILE OF cTnI DISTRIBUTION IN A REFERENCE POPULATION, HAS BEEN CONFIRMED THE DECISION THRESHOLD FOR [place] DIAGNOSIS. Performed By: #### P THINT #### [facility] [address] [place] [address] Dr. Alejandrina Feng XR CHEST 1 Von [...] ERNANDEZ Date: 2022-02-22 13:20 Normal [facility] OSMOLALITYon 02-02-2022 Osmolality [Osmolality] 284 mosm/kg Normal 280-301 [facility] Comment on above: Performed By: #### P THINT #### [facility] [address] [place] [address] Dr. Alejandrina Feng OSMOLALITY URINEon 2 Osmolality, Urine 629 mOsmol/kg Normal [facility] Comment on above: Result Comment: 24 h r : 300 - 900 Random: 50 - 1400 After 12hr fluid restriction: >850 Performed By: #### O SMOU #### [facility] [address] [place] [address] Dr. Alejandrina Feng PTH INTACTon 02-01-2022 PTH, Intact 42 pg/mL Normal 15-65 [facility] Comment on above: Performed By: #### P THINT #### [facility] [address] [place] [address] Dr. Alejandrina Feng PROF CHEM 8 (BAS METB)on Anion gap [Moles/Vol] 12.7 mmol/L Normal [facility] Comment on above: Performed By: #### P THINT #### [facility] [address] [place] [address] Dr. Alejandrina Feng Calcium [Mass/Vol] 8.7 mg/dL Normal 8.5-10.1 [facility] Comment on above: Performed By: #### P THINT #### [facility] [address] [address] [address] Alejandrina Feng Chloride [Moles/Vol] 100 mmol/L Normal 98-107 [facility] Comment on above: Performed By: #### P THINT #### [facility] [address] [place] [address] Dr. Alejandrina Feng CO2 [Moles/Vol] 27.7 mmol/L Normal 21.0-32.0 [facility] Comment on above: Performed By: #### P THINT #### [facility] [address] [place] [address] Dr. Alejandrina Feng Creatinine [Mass/Vol] 0.65 mg/dL Normal 0.55-1.02 [facility] Comment on above: Performed By: #### P THINT #### [facility] [address] [place] [address] Dr. Alejandrina Feng EGFR-AF AUSTRALIAN >60 Normal >=60 [facility] Comment on above: Performed By: #### P THINT #### [facility] [address] [place] [address] Dr. Alejandrina Feng EGFR-NON AF AUSTRALIAN >60 Normal >=60 [facility] Comment on above: Performed By: #### P THINT #### [facility] [address] [place] [address] Dr. Alejandrina Feng Glucose [Mass/Vol] 103 mg/dL Normal 74-106 The [facility] Comment on above: Performed By: #### P THINT #### [facility] [address] [place] [address] Dr. Alejandrina Feng Potassium [Moles/Vol] 3.4 mmol/L Critically low 3.5-5.1 [facility] Comment on above: Performed By: #### P THINT #### [facility] [address] [place] [address] Dr. Alejandrina Feng Sodium [Moles/Vol] 137 mmol/L Normal 136-145 [facility] Comment on above: Performed By: #### P THINT #### [facility] [address] [place] [address] Dr. Alejandrina Feng Urea nitrogen [Mass/Vol] 15.0 mg/dL Normal 7.0-18.0 [facility] Comment on above: Performed By: #### P THINT #### [facility] [address] [place] [address] Dr. Alejandrina Feng Urea nitrogen/Creatinine [Mass ratio] 23.1 mg/mg Normal [facility] Comment on above: Performed By: #### P THINT #### [facility] [address] [place] [address] Dr. Alejandrina Feng SODIUM RANDOM URINEon 2021 Sodium (U) [Moles/Vol] 74 mmol/L Normal 30-90 [facility] Comment on above: Performed By: #### N AU #### [facility] [address] [place] [address] Dr. Alejandrina Feng TSHon 01-31-2022 TSH 0.791 uIU/mL Normal 0.358-3.740 The [facility] Comment on above: Performed By: #### P THINT #### [facility] [address] [place] [address] Dr. Alejandrina Feng TSH RANGE SEE BELOW Normal [facility] Comment on above: Result Comment: <0.3 4 UIU/ml HYPERTHYROID 0.34-5.60 UIU/ml EUTHYROID >5.60 UIU/ml HYPOTHYROID Performed By: #### P THINT #### [facility] [address] [place] [address] Dr. Alejandrina Feng Vital Signs Date Time Vital Sign Value Performing Clinician Facility 12-02-2024 10:40-0400 Body height 162.56 cm [facility] 12-02-2024 10:40-0400 Body mass index (BMI) [Ratio] 24.6 kg/m2 [facility] 12-02-2024 10:40-0400 Body weight 65.09 kg [facility] 12-02-2024 10:40-0400 Diastolic blood pressure 82 mm[Hg] [facility] 12-02-2024 10:40-0400 Heart rate 80 /min [facility] 12-02-2024 10:40-0400 Respiratory rate 12 /min [facility] 12-02-2024 10:40-0400 Systolic blood pressure 130 mm[Hg] [facility] 09-24-2024 10:51-0500 Body height 162.56 cm [facility] 09-24-2024 10:51-0500 Body mass index (BMI) [Ratio] 24.7 kg/m2 [facility] 09-24-2024 10:51-0500 Body weight 65.31 kg [facility] 09-24-2024 10:51-0500 Diastolic blood pressure 76 mm[Hg] [facility] 09-24-2024 10:51-0500 Heart rate 74 /min [facility] 09-24-2024 10:51-0500 Systolic blood pressure 118 mm[Hg] [facility] 08-07-2024 09:24-0500 Body height 162.56 cm [facility] 08-07-2024 09:24-0500 Body mass index (BMI) [Ratio] 24.9 kg/m2 [facility] 08-07-2024 09:24-0500 Body weight 65.94 kg [facility] 08-07-2024 09:24-0500 Diastolic blood pressure 79 mm[Hg] [facility] 08-07-2024 09:24-0500 Heart rate 83 /min [facility] 08-07-2024 09:24-0500 Respiratory rate 12 /min [facility] 08-07-2024 09:24-0500 Systolic blood pressure 120 mm[Hg] [facility] 07-26-2024 09:06-0400 Body height 162.56 cm [facility] 07-26-2024 09:06-0400 Body mass index (BMI) [Ratio] 25.1 kg/m2 [facility] 07-26-2024 09:06-0400 Body weight 66.39 kg [facility] 07-26-2024 09:06-0400 Diastolic blood pressure 78 mm[Hg] [facility] 07-26-2024 09:06-0400 Heart rate 76 /min [facility] 07-26-2024 09:06-0400 Respiratory rate 12 /min [facility] 07-26-2024 09:06-0400 Systolic blood pressure 129 mm[Hg] [facility] 04-15-2024 14:16-0400 Body height 162.56 cm [facility] 04-15-2024 14:16-0400 Body mass index (BMI) [Ratio] 25.9 kg/m2 [facility] 04-15-2024 14:16-0400 Body weight 68.71 kg [facility] 04-15-2024 14:16-0400 Diastolic blood pressure 83 mm[Hg] [facility] 04-15-2024 14:16-0400 Heart rate 80 /min [facility] 04-15-2024 14:16-0400 Respiratory rate 12 /min [facility] 04-15-2024 14:16-0400 Systolic blood pressure 123 mm[Hg] [facility] 02-20-2024 14:50-0400 Blood Pressure Location Kelsie Orzech [facility] 02-20-2024 14:50-0400 Body temperature 98.06 [degF] Kelsie Orzech [facility] 02-20-2024 14:50-0400 Diastolic blood pressure 84 mm[Hg] Kelsie Orzech [facility] 02-20-2024 14:50-0400 Heart rate 83 /min Kelsie Orzech [facility] 02-20-2024 14:50-0400 Respiratory rate 16 /min Kelsie Orzech [facility] 02-20-2024 14:50-0400 Systolic blood pressure 123 mm[Hg] Kelsie Orzech [facility] 02-20-2024 12:02-0400 Body height 162.56 cm [facility] 02-20-2024 12:02-0400 Body mass index (BMI) [Ratio] 25.8 kg/m2 [facility] 02-20-2024 12:02-0400 Body weight 68.26 kg [facility] 02-20-2024 12:02-0400 Diastolic blood pressure 82 mm[Hg] [facility] 02-20-2024 12:02-0400 Heart rate 83 /min [facility] 02-20-2024 12:02-0400 Respiratory rate 12 /min [facility] 02-20-2024 12:02-0400 Systolic blood pressure 130 mm[Hg] [facility] 12-27-2023 09:02-0400 Body height 162.56 cm [facility] 12-27-2023 09:02-0400 Body mass index (BMI) [Ratio] 26.2 kg/m2 [facility] 12-27-2023 09:02-0400 Body weight 69.11 kg [facility] 12-27-2023 09:02-0400 Diastolic blood pressure 84 mm[Hg] [facility] 12-27-2023 09:02-0400 Heart rate 76 /min [facility] 12-27-2023 09:02-0400 Respiratory rate 12 /min [facility] 12-27-2023 09:02-0400 Systolic blood pressure 127 mm[Hg] [facility] 12-19-2023 08:57-0400 Body height 162.56 cm [facility] 12-19-2023 08:57-0400 Body mass index (BMI) [Ratio] 25.9 kg/m2 [facility] 12-19-2023 08:57-0400 Body weight 68.54 kg [facility] 12-19-2023 08:57-0400 Diastolic blood pressure 85 mm[Hg] [facility] 12-19-2023 08:57-0400 Heart rate 98 /min [facility] 12-19-2023 08:57-0400 Respiratory rate 12 /min [facility] 12-19-2023 08:57-0400 Systolic blood pressure 124 mm[Hg] [facility] 10-09-2023 10:00-0500 Body height 162.56 cm Segun Ball Other [facility] 10-09-2023 10:00-0500 Body mass index (BMI) [Ratio] 25.81 kg/m2 Segun Ball Other [facility] [employer] Other 10-09-2023 10:00-0500 Body weight 68.22 kg Segun Ball Other [facility] 10-09-2023 10:00-0500 Diastolic blood pressure 83 mm[Hg] Segun Ball Other [facility] 10-09-2023 10:00-0500 Respiratory rate 12 /min Segun Ball Other [facility] [employer] Other 10-09-2023 10:00-0500 Systolic blood pressure 126 mm[Hg] Segun Ball Other [facility] 09-19-2023 13:45-0500 Body height 162.56 cm Segun Ball Other [facility] [employer] Other 09-19-2023 13:45-0500 Body mass index (BMI) [Ratio] 26.02 kg/m2 Segun Ball Other [facility] [employer] Other 09-19-2023 13:45-0500 Body weight 68.77 kg Segun Ball Other [employer] Other 09-19-2023 13:45-0500 Diastolic blood pressure 79 mm[Hg] Segun Ball Other [employer] Other 09-19-2023 13:45-0500 Respiratory rate 12 /min Segun Ball Other [employer] Other 09-19-2023 13:45-0500 Systolic blood pressure 123 mm[Hg] Segun Ball Other [employer] Other 04-10-2023 11:00-0400 Body height 162.56 cm Segun Ball Other [employer] Other 04-10-2023 11:00-0400 Body mass index (BMI) [Ratio] 26.29 kg/m2 Segun Ball Other [employer] Other 04-10-2023 11:00-0400 Body weight 69.49 kg Segun Ball Other [employer] Other 04-10-2023 11:00-0400 Diastolic blood pressure 74 mm[Hg] Segun Ball Other [employer] Other 04-10-2023 11:00-0400 Respiratory rate 12 /min Segun Ball Other [employer] Other 04-10-2023 11:00-0400 Systolic blood pressure 108 mm[Hg] Segun Ball Other [employer] Other 01-25-2023 12:30-0400 Body height 162.56 cm Segun Ball Other [employer] Other 01-25-2023 12:30-0400 Body mass index (BMI) [Ratio] 26.05 kg/m2 Segun Ball Other [employer] Other 01-25-2023 12:30-0400 Body weight 68.86 kg Segun Ball Other [employer] Other 01-25-2023 12:30-0400 Diastolic blood pressure 81 mm[Hg] Segun Ball Other [employer] Other 01-25-2023 12:30-0400 Respiratory rate 12 /min Segun Ball Other [employer] Other 01-25-2023 12:30-0400 Systolic blood pressure 119 mm[Hg] Segun Ball Other [employer] Other 12-06-2022 11:00-0400 Body height 162.56 cm Segun Ball Other [employer] Other 12-06-2022 11:00-0400 Body mass index (BMI) [Ratio] 25.98 kg/m2 Segun Ball Other [employer] Other 12-06-2022 11:00-0400 Body weight 68.68 kg Segun Ball Other [employer] Other 12-06-2022 11:00-0400 Diastolic blood pressure 74 mm[Hg] Segun Ball Other [employer] Other 12-06-2022 11:00-0400 Respiratory rate 16 /min Segun Ball Other [employer] Other 12-06-2022 11:00-0400 Systolic blood pressure 117 mm[Hg] Segun Ball Other [employer] Other 07-13-2022 13:16-0400 Blood Pressure Location NOE SHANE [facility] 07-13-2022 13:16-0400 Diastolic blood pressure 88 mm[Hg] NOE SHANE [facility] 07-13-2022 13:16-0400 Heart rate 79 /min NOE SHANE [facility] 07-13-2022 13:16-0400 Respiratory rate 16 /min NOE SHANE [facility] 07-13-2022 13:16-0400 Systolic blood pressure 138 mm[Hg] NOE SHANE [facility] Encounters Encounter Date Encounter Type Care Provider Facility Start: 03-02-2026 [facility] Start: 03-03-2025 End: 03-03-2025 ambulatory Enrique VÁSQUEZ Facility:[facility] Start: 03-03-2025 End: 03-03-2025 Patient encounter procedure Enrique VÁSQUEZ [facility] Start: 01-30-2025 End: 01-30-2025 ambulatory [facility] Work Phone: Start: 01-30-2025 End: 01-30-[address] [facility] Work Phone: Start: 12-02-2024 End: 12-02-2024 ambulatory [facility] Work Phone: Start: 12-02-2024 End: 12-02-[address] [facility] Work Phone: Start: 09-24-2024 End: 09-24-[address] [facility] Work Phone: Start: 08-07-2024 End: 08-07-2024 ambulatory [facility] Work Phone: Start: 08-07-2024 End: 08-07-[address] [facility] Work Phone: Start: 07-31-2024 Non-patient / Non-visit [facility] Work Phone: Start: 07-26-2024 End: 07-26-2024 ambulatory [facility] Work Phone: Start: 07-26-2024 End: 07-26-[address] [facility] Work Phone: Start: 05-06-2024 End: 05-06-2024 ambulatory [facility] Facility:[facility] Start: 05-06-2024 Non-patient / Non-visit [facility] Work Phone: Start: 05-01-2024 Non-patient / Non-visit [facility] Work Phone: Start: 04-15-2024 End: 04-15-2024 ambulatory [facility] Work Phone: Start: 04-15-2024 End: 04-15-2024 Encounter for general adult medical examination without abnormal findings [facility] Start: 04-15-2024 End: 04-15-[address] [facility] Work Phone: Start: 02-20-2024 End: 02-20-2024 Lab Drop off Kelsie X Orzech [facility] Start: 02-20-2024 End: 02-20-2024 Patient encounter procedure Kelsie X Orzech [facility] Start: 02-20-2024 End: 02-20-2024 ambulatory [facility] Work Phone: Start: 02-20-2024 End: 02-20-[address] [facility] Work Phone: Start: 02-08-2024 Non-patient / Non-visit [facility] [employer] Work Phone: Start: 12-27-2023 End: 12-27-2023 ambulatory [facility] Work Phone: Start: 12-27-2023 End: 12-27-[address] [facility] Work Phone: Start: 12-19-2023 End: 12-19-2023 ambulatory [facility] Work Phone: Start: 12-19-2023 End: 12-19-[address] [facility] Work Phone: Start: 11-29-2023 Non-patient / Non-visit [facility] [employer] Work Phone: Start: 10-10-2023 End: 10-10-2023 ambulatory Segun Ball Other [employer] Other Start: 10-10-2023 Telephone encounter Segun Sancho [facility] Start: 10-09-2023 End: 10-09-2023 ambulatory Segun Ball Other [employer] Other Start: 10-09-2023 Office outpatient vi sit 25 minutes Segun Sancho [facility] Start: 10-09-2023 End: 10-09-[address] [facility] Work Phone: Start: 09-22-2023 End: 09-22-2023 ambulatory Segun Ball Other [employer] Other Start: 09-22-2023 Telephone encounter Segun Ball [facility] Start: 09-19-2023 End: 09-19-2023 ambulatory Segun Ball Other [employer] Other Start: 09-19-2023 Office outpatient vi sit 15 minutes Segun Ball [facility] Start: 09-13-2023 Telephone encounter Segun Ball [facility] Start: 09-13-2023 End: 09-13-[address] [employer] Other Start: 07-19-2023 End: 07-19-2023 ambulatory Segun Ball Other [employer] Other Start: 07-19-2023 Office outpatient vi sit 15 minutes Segun Ball [facility] Start: 06-20-2023 End: 06-20-2023 ambulatory Segun Ball Other [employer] Other Start: 06-20-2023 Telephone encounter Segun Ball [facility] Start: 04-13-2023 End: 04-13-2023 ambulatory Segun Ball Other [employer] Other Start: 04-13-2023 Telephone encounter Segun Ball [facility] Start: 04-10-2023 End: 04-10-2023 ambulatory Segun Ball Other [employer] Other Start: 04-10-2023 Encounter for genera l adult medical examination without abnormal findings Segun Ball [facility] Start: 04-10-2023 Periodic preventive med est patient 65yrs& older Segun Ball [facility] Start: 01-25-2023 End: 01-25-2023 ambulatory Segun Ball Other [employer] Other Start: 01-25-2023 Office outpatient vi sit 15 minutes Segun Ball [facility] Start: 01-20-2023 End: 01-21-[address] ENRIQUE VÁSQUEZ . Facility:[facility] Start: 12-06-2022 End: 12-06-2022 ambulatory Segun Kingsley Other [employer] Other Start: 12-06-2022 Office outpatient vi sit 25 minutes Segun Kingsley [facility] Start: 10-27-2022 End: 10-28-[address] ENRIQUE VÁSQUEZ . Facility:[facility] Start: 08-26-2022 End: 08-27-[address] ELOINA DUMONT Facility:[facility] Start: 07-13-2022 End: 07-14-2022 ambulatory Jackson Bach Facility:[facility] Start: 07-13-2022 End: 07-13-2022 Patient encounter procedure NOE SHANE [facility] Start: 07-06-2022 End: 07-07-[address] SEGUN KINGSLEY Facility:[facility] Start: 06-20-2022 End: 06-21-[address] SEGUN KINGSLEY Facility:[facility] Start: 04-01-2022 Adult health examination Segun Kingsley Other [employer] Other Start: 03-11-2022 End: 03-11-[address] SEGUN KINGSLEY Facility:[facility] Start: 03-09-2022 End: 03-10-[address] ENRIQUE VÁSQUEZ . Facility:[facility] Start: 03-02-2022 End: 03-02-[address] SEGUN KINGSLEY Facility:[facility] Start: 02-22-2022 End: 02-22-[address] SEGUN KINGSLEY Facility:[facility] Start: 01-31-2022 End: 02-01-[address] SEGUN KINGSLEY Facility:[facility] Procedures Date Procedure Procedure Detail Performing Clinician Start: 02-08-2024 Radiography of [id number] Kelsie Perez Start: 06-03-2021 Extracorporeal shock wave [...] lic 1999 panel - Serum or Plasma [facility] Comprehensive metabo lic 1999 panel - Serum or Plasma [facility] MG Breast - bilateral Screening [facility] Patient Education Low back pain in adults [facility] Work Phone: XR Foot - right GE 3 Views [facility] Immunizations Immunization Date Immunization Notes Care Provider Danyelle kumari 06-22-2022 influenza virus vaccine, split virus (incl. purified surface antigen) Segun Kingsley Other [employer] [facility] [employer] Other 06-22-2022 influenza virus vaccine, unspecified formulation [facility] 06-22-2022 influenza, high dose seasonal, preservative-free Segun Kingsley Other [facility] [employer] Other 04-01-2022 pneumococcal conjuga te vaccine, 13 valent NOE SHANE [facility] 09-01-2021 COVID-19 Vaccine Pfi zer - Documentation Purposes Only Segun Kingsley Other [facility] 09-01-2021 SARS-CoV-2 (COVID-19 ) Ad26 vaccine, recombinant NOE SHANE [facility] 07-19-2021 influenza virus vaccine, split virus (incl. purified surface antigen) Segun Kingsley Other [facility] [employer] Other 07-19-2021 influenza virus vaccine, unspecified formulation [facility] 05-26-2021 influenza virus vaccine, unspecified formulation NOE SVITLANA [facility] 01-05-2021 diphtheria, tetanus toxoids and acellular pertussis vaccine, unspecified formulation Segun Kingsley Other [facility] 01-05-2021 tetanus toxoid, redu agustin diphtheria toxoid, and acellular pertussis vaccine, adsorbed NOE SVITLANA [facility] 12-25-2020 COVID-19, mRNA, LNP- S, PF, 30 mcg/0.3 mL dose NOE SVITLANA [facility] Comment on above: Reason for Medicatio n: Prophylaxis 12-04-2020 COVID-19, mRNA, LNP- S, PF, 30 mcg/0.3 mL dose NOE SVITLANA [facility] Comment on above: Reason for Medicatio n: Prophylaxis 08-14-2020 pneumococcal polysaccharide vaccine, 23 valent Segun Kingsley Other [facility] 08-11-2020 influenza virus vaccine, split virus (incl. purified surface antigen) Segun Kingsley Other [facility] [employer] Other 08-11-2020 influenza virus vaccine, unspecified formulation [facility] 08-10-2020 influenza virus vaccine, unspecified formulation NOE SVITLANA [facility] 07-25-2018 influenza virus vaccine, split virus (incl. purified surface antigen) Segun Kingsley Other [employer] Other 07-25-2018 influenza virus vaccine, unspecified formulation NOE SHANE [facility] 10-12-2017 influenza virus vaccine, split virus (incl. purified surface antigen) Segun Kingsley Other [employer] Other 10-12-2017 influenza virus vaccine, unspecified formulation [facility] Payers Date Payer Category Payer Self-pay 2024 Medicare [id number] 2023 Private Health Insurance [facility] [id number] 1959 Unknown [id number] 2. [id number] 1954 Unknown [id number] 2.16.84 [id number] 1954 Unknown [id number] 2.16.84 0.1.674501.3.579.2.593 1954 Unknown [id number] 2.16.84 0.1.885115.3.579.2.593 1954 Unknown [id number] 2.16.84 0.1.647741.3.579.2.593 1954 Unknown [id number] 2.16.84 0.1.602456.3.579.2.593 1954 Unknown [id number] 2.16.84 0.1.855661.3.579.2.593 1954 Unknown [id number] 2.16.84 0.1.495248.3.579.2.593 1954 Unknown [id number] 2.16.84 0.1.757080.3.579.2.593 1954 Unknown [id number] 2.16.84 0.1.975735.3.579.2.593 1954 Unknown [id number] 2.16.84 0.1.933721.3.579.2.593 1954 Unknown [id number] 2.16.84 0.1.389114.3.579.2.593 1954 Unknown [id number] 2.16.840 .1.276561.3.579.2.1259 1954 Unknown [id number] 2.16.8 40.1.572160.3.579.2.727 1954 Unknown [id number] 2.16.8 [id number] Unknown [id number] 2.16.8 [id number] Social History Date Type Detail Facility Start: 07-13-2022 End: 03-03-2025 Tobacco smoking status Never smoked tobacco (finding) [facility] Tobacco smoking status Never [facility] Sex Assigned At Female [facility] Start: 1955 Sex Assigned At Female [facility] Start: 11-27-2020 End: 08-07-2024 Sex Female (finding) [facility] Sexual Orientation [facility] Functional Status Date Assessment Result Facility 02-20-2024 Functional Status N/A [facility] 07-13-2022 Functional Status N/A [facility] Clinical Notes 07-13-2022 to 03-03-2025 Note Date [...] include: ?8 oz (237 mL) of milk, zawoarn-isbknfwtswtv-havma milk, and calcium-fortifiedfruit juice. Calcium-fortified means that [...] ?Spinach (cooked), rhubarb, beets, sweet potatoes, and [place] chard. ?Peanuts. ?Potato chips, gabonese fries, and baked potatoes with skin on. ?Nuts and nut products. ?Chocolate. If you regularly take a diuretic medicine, make sure to eat at least 1 or 2 servings of fruits or vegetables that are high in potassium each day. These include: ?Avocado. ?Banana. ?[place], prune, carrot, or tomato juice. ?Baked potato. [...] magnesium, fish oil, or vitamin B6. Take tuch-edi-tjrjqjy and prescription medicines only as told by [...] Casseroles. Pizza. Lasagna. Frozen meals. Potato chips. Arabic fries. The items listed above may not [...] provider. Document Revised: 12/22/2022 Document Reviewed: 12/22/2022 [employer] Patient Education 2023 [email or web address]. Follow Up Care 02/20/2024 15:25:41 With:MARCY GRESHAM, ES Jacobs Address: [facility] [address], [place] [address]- When: Unknown [facility] Marj 03-03-2025 Note Patient Education Nephrology Dietary [...] ? 8 oz (237 mL) of milk, izsedpm-yunfvizfqbxl-dvvjp milk, and calcium-fortifiedfruit juice. Calcium-fortified means that [...] Spinach (cooked), rhubarb, beets, sweet potatoes, and [place] chard. ? Peanuts. ? Potato chips, gabonese fries, and baked potatoes with skin on. ? Nuts and nut products. ? Chocolate. ??? If you regularly take a diuretic medicine, make sure to eat at least 1 or 2 servings of fruits or vegetables that are high in potassium each day. These include: ? Avocado. ? Banana. ? [place], prune, carrot, or tomato juice. ? Baked [...] fish oil, or vitamin B6. ??? Take jmjg-rmb-titclnq and prescription medicines only as told by your health (more content not included)... [facility] 12-02-2024 Evaluation note Diagnosis Onset Date Resolution Elevated cholesterol acute 2024 10:28am Essential (primary) hypertension acute December 02, 2024 10:28am Gastroesophageal reflux 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 acute December 02 025 10:28am Lumbar spondylosis acute December 02, 2024 10:28am Primary insomnia acute December 022024 10:28am Recurrent major depressive disorder, in full remission acute December 02, 2024 10:28am Rhinitis noneactive December 02 10:28am [facility] Work Phone: 1(580) 109-564112-31-2024 Evaluation note* Diagnosis Onset Date Resolution Status [...] full remission acute Emeka h 2024 10:28am [facility] Work Phone: 1(821) 774-279811-01-2024 Evaluation note* Diagnosis Onset Date Resolution Status Admit Date Allergic contact dermatitis due to clothing acute July 26 8:51am Chronic venous insufficiency of lower extremity acute July 26 8:51am Elevated cholesterol acute [facility] 2023 9:17am Essential (primary) hypertension acu te August 07, 2024 9:17am Gastroesophageal reflux dise ase with esophagitis without hemorrhage acute August 07, 2 024 9:17am Lumbar spondylosis acute [facility] 2023 9:17am Primary insomnia acute August 07, 2024 9:17am Recurrent major depressive disorder, in full remission acute [facility] 2023 9:17am [facility] Work Phone: 1(571) 739-422905-28-2024 Hospital Discharge instructions Patient Education 02/20/2024 16:06:08 [...] include: ?8 oz (237 mL) of milk, krsudje-qoqoyfqqcpln-uazuq milk, and calcium- fortifiedfruit juice. Calcium-fortified means [...] ?Spinach (cooked), rhubarb, beets, sweet potatoes, and [place] chard. ?Peanuts. ?Potato chips, gabonese fries, and baked potatoes with skin on. ?Nuts and nut products. ?Chocolate. If you regularly take a diuretic medicine, make sure to eat at least 1 or 2 servings of fruits or vegetables that are high in potassium each day. These include: ?Avocado. ?Banana. ?[place], prune, carrot, or tomato juice. ?Baked potato. [...] magnesium, fish oil, or vitamin B6. Take ksrz-ipc-reuvdem and prescription medicines only as told by [...] Casseroles. Pizza. Lasagna. Frozen meals. Potato chips. Arabic fries. The items listed above may not [...] provider. Document Revised: 12/22/2022 Document Reviewed: 12/22/2022 [employer] Patient Education 2022 [employer]. 02/20/2024 16:06:04 Kidney Stones, Axel-et-Pxte Kidney Stones Kidney stones are rock-like masses [...] Follow these instructions at home: Medicines Take lplh-mek-moeaoks and prescription medicines only as told by [...] provider. Document Revised: 05/16/2022 Document Reviewed: 05/16/2022 [employer] Patient Education 2022 [employer] [facility] 01-16-2024 Evaluation note* Encounter Date Diagnosis Assessment Notes Treatment Notes Treatment Clinical Notes Sep, COVID-19 (ICD-10 - U07.1) [facility] 01-15-2024 Evaluation note* Encounter Date Diagnosis [...] interruption. Instructed to avoid d/c meds abruptly [facility] Other 12-26-2023 Evaluation note* Encounter Date Diagnosis [...] needed - XR to r/o compression fx [facility] 12-26-2023 Evaluation note* Encounter Date Diagnosis [...] needed - XR to r/o compression fx [facility] Other 12-20-2023 Evaluation note* Encounter Date Diagnosis Assessment Notes Treatment Notes Treatment Clinical Notes Aug, Nontoxic single thyroid nodule (ICD-10 - E04.1) Serial US w/ stable size and appearance. Referred to ENT w/ no further scans recommended. [facility] Other 10-25-2023 Evaluation note* Encounter Date Diagnosis [...] Amlodipine to 5mg qd while taking Paxlovid [facility] Other 07-17-2023 Evaluation note* Encounter Date Diagnosis [...] SBE and yearly mammogram - due in [facility] Other 05-03-2023 Evaluation note* Encounter Date Diagnosis [...] pneumonia Due for COVID booster and Shingrix [facility] 03-14-2023 Evaluation note* Encounter Date Diagnosis [...] or drinking prior to bedtime. Continue PPI [facility] Other 10-19-2022 Hospital Discharge instructions Patient Education 07/13/2022 13:30:11 Kidney Stones, Zcbn-fi-Uzqz Kidney Stones Kidney stones are rock-like masses [...] Follow these instructions at home: Medicines Take elnx-bby-erutquf and prescription medicines only as told by [...] 02/27/2009 Document Revised: 01/28/2020 Document Reviewed: 01/28/2020 [employer] Patient Education 2019 [employer]. Follow Up Care 10/18/2021 12:21:40 With:NOE SHANE PA-C, URL Address: [address] [place] [address] [phone] When: Unknown [facility] 10-19-2022 Evaluation + Plan note Future Scheduled Tests Laboratory* Basic Metabolic Panel 07/13/22 [facility] evaluation + Plan note Future Appointments Appointment Date:02/24/2025 09:15:00 AM Scheduled Provider:Enrique VÁSQUEZ MD Location:[facility] Appointment Type:URO Office Visit [facility] evaluation + Plan note Future Appointments Appointment Date:02/24/2025 09:15:00 AM Scheduled Provider:Enrique VÁSQUEZ MD Location:[facility] Appointment Type:URO Office Visit Diagnostic Tests Pending * [facility] Future Appointments Appointment Date:03/02/2026 10:30:00 AM Scheduled Provider:Enrique VÁSQUEZ MD Location:[facility] Appointment Type:URO Office Visit [facility] evaluation noteNo [employer] Other evaluation note* Diagnosis Onset Date Resolution Status Plantar fasciitis of right foot noneactive Right foot pain noneactive [facility] Work Phone: evaluation note* Diagnosis Onset Date Resolution Status Plantar fasciitis of right foot noneactive Right foot pain noneactive Essential (primary) hypertension acute Osteoporosis acute Avulsion fracture of metatarsal bone of right foot noneactive [facility] Work Phone: evaluation note* Diagnosis Onset Date Resolution Status Plantar fasciitis of right foot noneactive Right foot pain noneactive Osteoporosis acute Avulsion fracture of metatarsal bone of right foot noneactive [facility] Work Phone: evaluation note* Diagnosis Onset Date Resolution Status IBS (irritable bowel syndrome) acute Low back pain acute Elevated cholesterol acute Essential (primary) hypertension acute Gastroesophageal reflux dise ase with esophagitis without hemorrhage acute Lumbar spondylosis acute Osteoporosis acute Primary insomnia acute Recurrent major depressive d isorder, in full remission acute Screening mammogram for breast cancer noneactive [facility] Work Phone: evaluation note* Diagnosis Onset Date Resolution Status IBS (irritable bowel syndrome) acute Low back pain acute Elevated cholesterol acute Essential (primary) hypertension acute Gastroesophageal reflux dise ase with esophagitis without hemorrhage acute Lumbar spondylosis acute Primary insomnia acute Recurrent major depressive d isorder, in full remission acute Screening mammogram for breast cancer noneactive Wellness examination noneact betsy [facility] Work Phone: Evaluation noteNo assessment information available [facility] Work Phone: History general Narrative - [...] GENEVA/BSO 2009 Hospitalization History SEE SURGICAL HX [facility] [employer] Other History general [facility]ative - [facility] Hospital course Narrative No data available for this section [facility] Hospital Discharge instructions No data available for this section [facility] No data available for this section [facility] reason for referral (narrative)* Reason Referral for treatme nt of chronic low back pain Diagnosis 1 Acute bilateral low back pain without sciatica (M54.50) Diagnosis 2 Lumbar spondylosis ( M47.816) Referral Organization [facility] Jacey rivas Referring Provider First Name Segun Referring Provider Last Name Sancho Referring Provider Specialty Internal Me dicine Referred Organization [facility] Referred Address [address], [place],[address] Referred Provider Specialty Pain Medicin e Referral [...] for injections. Clinical Notes Include XR results [facility] Other Summary Purpose Family History No Family [...] content) 3 month Follow upPossible Sp rondar [id number] COVID +No Informationback painback painXR results6 monthCOVID + INFORMATION SOURCE (unrecogn ized section and content) DATE CREATED AUTHOR 01/27/2023 [facility] DATE CREATED AUTHOR AUTHOR'S ORGANIZ ATION 09/14/2023 [facility] DATE CREATED AUTHOR AUTHOR'S ORGANIZ ATION 05/07/2024 [facility] DATE CREATED AUTHOR AUTHOR'S ORGANIZ ATION 03/04/2025 [facility] DATE CREATED AUTHOR AUTHOR'S ORGANIZ ATION 03/05/2025 [facility] Goals (unrecognized section and content) Goals [...] BE BASED ON THE PRIMARY CLINICAL RECORDS. [employer] [facility]. provides no warranty or guarantee of the accuracy or completeness of information in this document.
--- NOTE | 2025-03-13 14:14 | PM.CN ---
Consult Note: HPI Data of Consult Patient: known to practice within the last 3 years Requesting Physician: Concetta Sharma NP Primary Care Provider: Segun Kingsley DO Consult Narrative Reason for consult: f/u Narrative: Elda Lee a pleasant 69 year old female presents for evaluation and management of left hip pain. noting increased pain over the last month without known cause or injury. no recent imaging. finds mild benefit to tylenol. pain today 5/10 pressure with tingling radiating to left thigh. cc:: CC: Concetta Sharma NP Review of Systems ROS Status of ROS 10 or more systems reviewed and unremarkable except as noted in history and below [facility] Medical History Thyroid nodule ?E04.1 - Nontoxic single thyroid nodule (ICD-10) Low back pain ?M54.50 - Low back pain, unspecified (ICD-10) Osteoarthritis ?M19.90 - Unspecified osteoarthritis, unspecified site (ICD-10) Heartburn ?R12 - Heartburn (ICD-10) Kidney stones ?N20.0 - Calculus of kidney (ICD-10) Hypertension ?I10 - Essential (primary) hypertension (ICD-10) Surgical History H/O: hysterectomy ?Z90.710 - Acquired absence of both cervix and uterus (ICD-10) Meds Home Medications and Allergies Home Medications ?Medication ?Instructions ?Recorded ?Confirmed ?Type amlodipine 10 mg tablet 10 mg PO DAILY 10/04/23 10/31/23 History atorvastatin 40 mg tablet 40 mg PO DAILY 10/04/23 10/31/23 History baclofen 10 mg tablet 5 mg PO DAILY 10/04/23 10/31/23 History fluoxetine 40 mg capsule 40 mg PO DAILY 10/04/23 10/31/23 History hydrochlorothiazide 25 mg tablet 25 mg PO DAILY 10/04/23 10/31/23 History potassium chloride 20 mEq oral 50 meq PO DAILY 10/04/23 10/31/23 History packet (Klor-Con) temazepam 15 mg capsule 15 mg PO .QHS 10/04/23 10/31/23 History diazepam 10 mg tablet (Valium) 10 mg PO ONCE PRN sedation 10/26/23 10/31/23 Rx hours #1 tab Allergies Allergy/AdvReac Type Severity Reaction Status Date / Time No Known Drug Allergies Allergy Verified 10/31/23 08:16 Exam Constitutional Documenting provider has reviewed patient's vital signs: yes Common normals: no apparent distress, oriented x3, healthy appearing, alert and well nourished General appearance: cooperative [facility] Common normals: normocephalic, hearing grossly normal bilaterally and moist oral mucous membranes Head and scalp: normocephalic Eye Common normals: PERRL Pupil: PERRL Neck & C-Spine Common normals: full ROM General: normal visual inspection Chest Common normals: inspection of chest normal Respiratory Common normals: normal respiratory effort, no retractions and no use of accessory muscles Back & Pelvis Thoracic spine/upper back: normal to inspection and thoracic ROM normal Lumbar spine/lower back: normal to inspection and lumbar ROM normal Sacroiliac joints: SI joint(s) abnormal Other: left sij positive berenice(patricks), gaenslens, thigh thrust, compression test negative internal and external rotation of left hip Extremity Common normals: normal to inspection and full ROM Neuro Common normals: oriented x3, CN's II-XII intact bilaterally, moves all extremities, no focal motor deficits, no sensory deficits noted, deep tendon reflexes 2+ bilaterally and gait normal Sensorium/orientation: alert Motor exam: strength 5/5 throughout and no movement abnormalities noted Psych Common normals: mental status grossly normal, thought process normal, cooperative, affect normal, speech normal and activity/motor behavior normal Speech: normal speech Thought process: normal thought process Assessment and Plan Assessment and Plan (1) Sacroiliitis: (2) Left hip pain: Plan update left hip xray refer to PT for left sided sacroilitis f/u 1 month
== END 2025-03-13 13:08 | disposition home or self-care (01) ==
LOC: PM 13:08
PROVIDERS: PCP Internal Medicine; Visit Provider Nurse Practitioner
DX: M25.552 Pain in left hip (principal); M46.1 Sacroiliitis, not elsewhere classified
CPT/HCPCS: 72202; 73502; G0463

== ENCOUNTER 2025-04-10 10:07 | Outpatient (OUT) | payer OTHER, SELFPAY ==
--- NOTE | 2025-04-10 10:25 | PM.CN ---
Consult Note: HPI Data of Consult Patient: known to practice within the last 3 years Requesting Physician: Concetta Sharma NP Primary Care Provider: Segun Kingsley DO Consult Narrative Reason for consult: f/u Narrative: Elda Lee a pleasant 69 year old female presents for evaluation and management of low back and left hip pain. since last visit she has completed 6 weeks of provider guided HEP without improvement, noting increasing right low back pain as well. has been utilizing tylenol prn with mild relief. pain today 5/10 increasing to 8/10 with standing, walking, sleep, weather changes, transitioning. notes improvemend in pain with hot shower and sitting. cc:: CC: Concetta Sharma NP [facility] Medical History Thyroid nodule �E04.1 - Nontoxic single thyroid nodule (ICD-10) Low back pain �M54.50 - Low back pain, unspecified (ICD-10) Osteoarthritis �M19.90 - Unspecified osteoarthritis, unspecified site (ICD-10) Heartburn �R12 - Heartburn (ICD-10) Kidney stones �N20.0 - Calculus of kidney (ICD-10) Hypertension �I10 - Essential (primary) hypertension (ICD-10) Surgical History H/O: hysterectomy �Z90.710 - Acquired absence of both cervix and uterus (ICD-10) Meds Home Medications and Allergies Home Medications �Medication �Instructions �Recorded �Confirmed �Type amlodipine 10 mg tablet 10 mg PO DAILY 10/04/23 10/31/23 History atorvastatin 40 mg tablet 40 mg PO DAILY 10/04/23 10/31/23 History baclofen 10 mg tablet 5 mg PO DAILY 10/04/23 10/31/23 History fluoxetine 40 mg capsule 40 mg PO DAILY 10/04/23 10/31/23 History hydrochlorothiazide 25 mg tablet 25 mg PO DAILY 10/04/23 10/31/23 History potassium chloride 20 mEq oral 50 meq PO DAILY 10/04/23 10/31/23 History packet (Klor-Con) temazepam 15 mg capsule 15 mg PO .QHS 10/04/23 10/31/23 History diazepam 10 mg tablet (Valium) 10 mg PO ONCE PRN sedation 10/26/23 10/31/23 Rx hours #1 tab Allergies Allergy/AdvReac Type Severity Reaction Status Date / Time No Known Drug Allergies Allergy Verified 10/31/23 08:16 Exam Constitutional Documenting provider has reviewed patient's vital signs: yes Common normals: no apparent distress, oriented x3, healthy appearing, alert and well nourished General appearance: cooperative [facility] Common normals: normocephalic, hearing grossly normal bilaterally and moist oral mucous membranes Head and scalp: normocephalic Eye Common normals: PERRL Pupil: PERRL Neck & C-Spine Common normals: full ROM General: normal visual inspection Chest Common normals: inspection of chest normal Respiratory Common normals: normal respiratory effort, no retractions and no use of accessory muscles Back & Pelvis Lumbar spine/lower back: pain with ROM, lumbar spinal tenderness and straight leg raise negative bilaterally Sacroiliac joints: SI joint(s) abnormal Other: bilateral sij positive berenice(patricks), gaenslens, thigh thrust, compression test strength 5/5 in BLE sensation intact BLE Neuro Common normals: oriented x3 Sensorium/orientation: alert Psych Common normals: mental status grossly normal, thought process normal, cooperative, affect normal, speech normal and activity/motor behavior normal Speech: normal speech Thought process: normal thought process Results Additional Findings Additional findings: If on a controlled substance or opioids, I have checked an [place]AR[place] report on this patient and there are no aberrancies noted in the prescribing history.��If on a controlled substance or opioid a drug screen was completed and reviewed within the last year, and if there has not been a drug screen completed we ordered one today to monitor higher risk, state monitored pain medication use. As part of providing excellent, safe, comprehensive care, the following was completed at our patient's visit: 1. A medication reconciliation and review to ensure accurate knowledge of current/active medications, including asking our patients to inform us about any puze-srt-exvjwxf medications or herbal remedies/nutritional supplements/alternative remedies. 2. A review to specifically ensure our patients have had annual screening for screening for depression, screening for tobacco use, and screening for unhealthy alcohol use. For concerning screenings had a discussion with the patient, provided patient education, and recommended follow-up with primary care provider when appropriate. If patient noted with a risk of falling, they received education on strength, gait, and balance training to prevent future risk of falling. Portions of this note may have been carried over from the previous visit and updated as appropriate. Please note this office utilizes paper charting in addition to the electronic medical record. A list of current medications, vitals, and PMH is available there as the clinical staff outside of myself do not have access to [facility] charting during the clinic day operations. As part of providing quality comprehensive care the current medications, vitals, and PMH were reviewed in the paper chart. Assessment and Plan Assessment and Plan (1) Sacroiliitis: Assessment and Plan: The patient has had over 3 months of moderate to severe low back and SIJ pain with functional impairment and inadequate response to conservative care including NSAIDS (unless there are contraindication such as concurrent blood thinners), multiple oral or topical pain medications, and home exercise program/physical therapy.� Patient has completed >6 weeks of guided home exercise program and/or formal physical therapy program without relief of their symptoms.� I have reviewed the imaging of the lumbar spine and left SIJ and no red flags were identified.� The Oswestry Disability Index was completed, and the patient scored a 22%.� The patient noted the following:�� moderate pain with ADLs, standing, sitting, walking, sleeping, social life, travel We discussed the risks and benefits of the procedure with the patient, and we are NOT planning on using sedation as outlined in the guidelines from Medicare unless there is a documented reason that sedation would be strongly recommended.�� �The procedure will be completed with fluoroscopic guidance.� (2) Lumbar spondylosis: Plan proceed with bilateral SIJ injection under fluoroscopy start meloxicam 7.5mg BID PRN pain, take with food continue HEP as tolerated f/u after injection
--- OUTSIDE RECORDS SUMMARY | 2025-04-10 10:29 | XMS_ITS | CCD ---
Author Organization [facility] Care Team Providers Care Needle Maker Name Role Phone SEGUN KINGSLEY Primary Care Physician [phone] Segun Kingsley VÁSQUEZ ., DR RENEE Attending [...] BALL, DR GALVEZ Consulting Unavailable BALL, DR GALVZE Primary Care Unavailable BALL, DR GALVEZ Admitting [...] physicia Propensity to adverse reactions 5 Comment:Done Pumodo Other (2 sources) No Known Medication Allergies; Translations: [No Known Medication Allergies] Propensity to adverse reactions (disorder) [facility] Repository Medications Current Medications Medication Drug Class(es) Dates Sig (Normalized) Sig (Original) acetaminophen 500 mg oral tablet (4 sources) Start: 05-05-2021 take 500 mg by mouth twice daily Tylenol 500 mg, Oral, BID Start Date: 05/05/21 Status: Ordered Repeat number: 1 [id number] actuat albuterol 0.09 mg/actuat metered dose [...] day(s), # 90 cap(s), Refills(s) 3, Pharmacy: [facility], 163, cm, 03/03/25 11:35:00 EDT, Height/Length [...] 12-18-2023 take 20 mEq by mouth once shantelel y Potassium Bicarb And Chloride 20 mEq [...] day(s), # 180 tab(s), Refills(s) 3, [id number] 163, cm, 02/20/24 14:56:00 EDT, Height/Length Dosing, 68.1, kg, 02/20/24 14:56:00 EDT, Weight Dosing Start Date: 04/24/24 Stop Date: 04/19/25 Status: Ordered Quantity: 180.0 Unit: tab(s) Repeat number: 4 Start: 04-10-2023 take 1 tablet by [facility] twice daily Klor-Con/EF 25 mEq oral tablet, effervescent 25 mEq = 1 tab(s), Oral, BID, # 60 tab(s), Refills(s) 11, [id number] 163, cm, 02/13/23 14:27:00 EDT, Height/Length Dosing, 70, kg, 02/13/23 14:27:00 EDT, Weight Dosing Start Date: 04/10/23 Status: Ordered Start: 10-18-2021 take 1 tablet by [facility] twice daily Effer-K 25 mEq oral tablet, effervescent 25 mEq = 1 tab(s), Oral, BID, # 60 tab(s), Refills(s) 8, Pharmacy: [facility], 163, cm, 10/18/21 11:50:00 EST, Height/Length [...] 6 Episodic Other aftercare (1 source) 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 8 oz (237 mL) of milk, lftnruv-rzyqwfchqbkd-au iry milk, and calcium-fortifiedfruit juice. Calcium-fortified means [...] sa (more content not included)... Normal [facility] Ambulatory Visit Summary Ambulatory Visit [...] [facility] [address], [place] [address]- Medications What How Much When Instructions Unchanged [...] ? 8 oz (237 mL) of milk, gqmxqtq-kmyixvoomjct-yy iry milk, and calcium-fortifiedfruit juice. Calcium-fortified means [...] nee (more content not included)... Normal 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 U 24hr Ca 340 H. Citric acid 335 L. Taking Effer-K 25 mEq bid. Cont wo changes. Follow-up With When Contact Information MARCY GRESHAM, Enrique Layne, URL [facility] [address], [place] [address]- Additional Instructions: 1 yr with KUB and [...] adult 04 (more content not included)... Normal [facility] Comment on above: Result Comment: Elec tronically Signed By: Enrique VÁSQUEZ MD\.br\Date and Time Signed: 03/03/25 12:14 EDT\.br\Electronically Co-Signed By: Selma Aleln\.br\Date and Time Co-Signed: 03/03/25 12:09 EDT Influenza virus B Ag [Presen ce] in Upper respiratory specimen by Rapid immunoassayon 12-02-2024 FLUBV Ag IA.rapid Ql (Nph) Influenza virus B Ag [Presence] in Upper respiratory specimen by Rapid immunoassay [facility] No Panel Informationon 12-02 Influenza Type A (Rapid) Negative [facility] POC SARS CoV-2 Antigen Negative [facility] Basophils Auto (Bld) [#/Vol] on 09-24-2024 Basophils (Bld) [#/Vol] Automated basophil count 0.0-0.1 [facility] Basophils/100 WBC Auto (Bld) on 09-24-2024 Basophils/100 WBC (Bld) Automated basophil % 0.2-2.0 [facility] Eosinophils/100 WBC Auto (Bl d)on 09-24-2024 Eosinophils/100 WBC (Bld) Automated eosinophil % 0.9-7.0 [facility] Erythrocyte distribution wid th Auto (RBC) [Ratio]on 09-24-2024 Erythrocyte distribution width (RBC) [Ratio] Erythrocyte distribution width [Ratio] by Automated count 11.0-15.0 [facility] Estimated glomerular filtrat ion rate (GFR) non- Americanon 09-24-2024 GFR/1.73 sq M.predicted among non-blacks MDRD (S/P/Bld) [Vol rate/Area] Estimated glomerular filtration rate (GFR) non- >=60 mL/min/1.73m 2 [facility] Globulin Calc (S) [Mass/Vol] on 09-24-2024 Globulin (S) [Mass/Vol] Serum globulin measurement by calculation (mass/volume) [facility] Hematocrit Auto (Bld) [Volum e fraction]on 09-24-2024 Hematocrit (Bld) [Volume fraction] Hematocrit [Volume Fraction] of Blood by Automated count 36.0-48.0 [facility] Hemoglobin [Mass/volume] in Bloodon 09-24-2024 Hemoglobin (Bld) [Mass/Vol] Hemoglobin [Mass/volume] in Blood 12.0-16.0 [facility] Laboratory - Chemistry and C hemistry - challengeon 09-24-2024 Albumin [Mass/Vol] 3.5 g/dL 3.4-5.0 [facility] ALP [Catalytic activity/Vol] 167 U/L High 46-116 [facility] ALT [Catalytic activity/Vol] 43 U/L 14-59 [facility] Amylase [Catalytic activity/Vol] 44 U/L 25-115 [facility] AST [Catalytic activity/Vol] 29 U/L 15-37 [facility] Bilirubin [Mass/Vol] 0.4 mg/dL 0.2-1.0 [facility] Calcium [Mass/Vol] 9.2 mg/dL 8.5-10.1 [facility] Chloride [Moles/Vol] 102 mmol/L 98-107 [facility] CO2 [Moles/Vol] 27.8 mmol/L 21.0-32.0 [facility] Creatinine [Mass/Vol] 0.84 mg/dL 0.55-1.02 [facility] GFR/1.73 sq M.predicted MDRD (S/P/Bld) [Vol rate/Area] mL/min/{1.73_m2} >=60 mL/min/1.73m 2 [facility] Glucose [Mass/Vol] 100 mg/dL 74-106 [facility] Potassium [Moles/Vol] 3.5 mmol/L 3.5-5.1 [facility] Protein [Mass/Vol] 7.7 g/dL 6.4-8.2 [facility] Sodium [Moles/Vol] 139 mmol/L 136-145 [facility] Urea nitrogen [Mass/Vol] 14.0 mg/dL 7.0-18.0 [facility] Urea nitrogen/Creatinine [Mass ratio] 16.7 mg/mg [facility] Laboratory - Hematology and Cell countson 09-24-2024 Immature granulocytes/100 WBC (Bld) 0.3 % 0.0-0.5 [facility] Leukocytes [#/volume] correc toby for nucleated erythrocytes in Blood by Automated counon 09-24-2024 WBC corrected for nucl RBC Auto (Bld) [#/Vol] Leukocytes [#/volume] corrected for nucleated erythrocytes in Blood by Automated coun 4.0-11.0 [facility] Lymphocytes Auto (Bld) [#/Vo l]on 09-24-2024 Lymphocytes (Bld) [#/Vol] Lymphocytes [#/volume] in Blood by Automated count 1.2-3.8 [facility] Lymphocytes/100 WBC Auto (Bl d)on 09-24-2024 Lymphocytes/100 WBC (Bld) Lymphocytes/100 leukocytes in Blood by Automated count 20.5-60.0 [facility] MCH Auto (RBC) [Entitic mass ]on 09-24-2024 MCH (RBC) [Entitic mass] MCH [Entitic mass] by Automated count 26.7-34.0 [facility] MCHC Auto (RBC) [Mass/Vol]on 09-24-2024 MCHC (RBC) [Mass/Vol] MCHC [Mass/volume] by Automated count 29.9-35.2 [facility] MCV Auto (RBC) [Entitic vol] on 09-24-2024 MCV (RBC) [Entitic vol] MCV [Entitic volume] by Automated count 81.0-99.0 [facility] Monocytes Auto (Bld) [#/Vol] on 09-24-2024 Monocytes (Bld) [#/Vol] Automated blood monocyte count 0.3-0.8 [facility] Monocytes/100 WBC Auto (Bld) on 09-24-2024 Monocytes/100 WBC (Bld) Automated monocyte % 1.7-12.0 [facility] Neutrophils Auto (Bld) [#/Vo l]on 09-24-2024 Neutrophils (Bld) [#/Vol] Neutrophils [#/volume] in Blood by Automated count High 1.4-6.5 [facility] Neutrophils/100 WBC Auto (Bl d)on 09-24-2024 Neutrophils/100 WBC (Bld) Automated neutrophil % 43.0-75.0 [facility] No Panel Informationon 09-24 Eosinophils # (Auto) 0.2 10 3/uL 0.0-0.7 [facility] Immature Granulocyte # (Auto) 0.03 10 3/uL 0.00-0.03 [facility] Platelet mean volume Auto (B ld) [Entitic vol]on 09-24-2024 Platelet mean volume (Bld) [Entitic vol] Platelet mean volume [Entitic volume] in Blood by Automated count Low 9.5-13.5 [facility] Platelets Auto (Bld) [#/Vol] on 09-24-2024 Platelets (Bld) [#/Vol] Platelets [#/volume] in Blood by Automated count 150-450 [facility] RBC Auto (Bld) [#/Vol]on RBC (Bld) [#/Vol] Erythrocytes [#/volu me] in Blood by Automated count 4.20-5.40 [facility] Serum or plasma albumin/glob ulin mass ratioon 09-24-2024 Albumin/Globulin [Mass ratio] Serum or plasma albumin/globulin mass ratio [facility] Serum or plasma anion gap de terminationon 09-24-2024 Anion gap [Moles/Vol] Serum or plasma anion gap determination [facility] Basophils Auto (Bld) [#/Vol] on 05-06-2024 Basophils (Bld) [#/Vol] 0.1 10 3/uL 0.0-0.1 [facility] Basophils/100 WBC Auto (Bld) on 05-06-2024 Basophils/100 WBC (Bld) 0.5 % 0.2-2.0 [facility] Eosinophils/100 WBC Auto (Bl d)on 05-06-2024 Eosinophils/100 WBC (Bld) 3.0 % 0.9-7.0 [facility] Erythrocyte distribution wid th Auto (RBC) [Ratio]on 05-06-2024 Erythrocyte distribution width (RBC) [Ratio] 15.0 % 11.0-15.0 [facility] Glucose mean value [Mass/vol ume] in Blood Estimated from glycated hemoglobinon 05-06-2024 Average glucose Estimated from glycated hemoglobin (Bld) [Mass/Vol] 117 mg/dL [facility] Hematocrit Auto (Bld) [Volum e fraction]on 05-06-2024 Hematocrit (Bld) [Volume fraction] 41.1 % 36.0-48.0 [facility] Hemoglobin [Mass/volume] in Bloodon 05-06-2024 Hemoglobin (Bld) [Mass/Vol] 13.2 g/dL 12.0-16.0 [facility] Say 05-06-2024 L Specimen: Received: 05/06/24 Status: SOUGuru Rechrissy Num: [id number] Spec Type: Impression Subm Dr: Segun Kingsley DO Tissues: PATHPER Procedures: PATHREVIEW Age/ Patient Sex Location Account Attending Physician UniqueZaria suero 68/F [place] [id number] Segun Kingsley DO SPEC NUM: [id number] RECD: 05/06/24 STATUS: MARY RODGERS NUM: [id number] KYRIE: 05/06/[address]: Segun Kingsley DO ENTERED: 05/06/[address] [facility] [address]: Milagro [place] SPEC TYPE: Impression DEPT: GARRETT Myles ENTERED BY: [id number] RECV BY: [id number] ORDERED: PATHREVIEW ORDERED: PATHREVIEW Pathologist Review Abnormal [...] inflammation, or underlying infection requiring clinical correlations [facility]:[id number] Specimen: [id number] Received: 05/06/24-0 Status: MARY Rodgers Num: [id number] Spec Type: Impression Subm Dr: Segun Kingsley DO Tissues: PATHPER Procedures: PATHREVIEW Patient: Zaria Corona [id number] (Continued) Signed (signature on file) Qasim Feng MD 05/07/24 1023 Normal [facility] Laboratory - Hematology and Cell countson 05-06-2024 HbA1c (Bld) [Mass fraction] 5.7 % 4.5-6.2 [facility] Comment on above: ADA RECOMMENDED LIMI T 4.0 - 6.0ADA THERAPEUTIC TARGET < 7.0ACTION SUGGESTED> 7.0 Immature granulocytes/100 WBC (Bld) 0.7 % High 0.0-0.5 [facility] Leukocytes [#/volume] correc toby for nucleated erythrocytes in Blood by Automated counon 05-06-2024 WBC corrected for nucl RBC Auto (Bld) [#/Vol] 13.2 10 3/uL High 4.0-11.0 [facility] Lymphocytes Auto (Bld) [#/Vo l]on 05-06-2024 Lymphocytes (Bld) [#/Vol] 2.7 10 3/uL 1.2-3.8 [facility] Lymphocytes/100 WBC Auto (Bl d)on 05-06-2024 Lymphocytes/100 WBC (Bld) 20.6 % 20.5-60.0 [facility] MCH Auto (RBC) [Entitic mass ]on 05-06-2024 MCH (RBC) [Entitic mass] 27.9 pg 26.7-34.0 [facility] MCHC Auto (RBC) [Mass/Vol]on 05-06-2024 MCHC (RBC) [Mass/Vol] 32.1 g/dL 29.9-35.2 [facility] MCV Auto (RBC) [Entitic vol] on 05-06-2024 MCV (RBC) [Entitic vol] 86.9 fL 81.0-99.0 [facility] Monocytes Auto (Bld) [#/Vol] on 05-06-2024 Monocytes (Bld) [#/Vol] 0.7 10 3/uL 0.3-0.8 [facility] Monocytes/100 WBC Auto (Bld) on 05-06-2024 Monocytes/100 WBC (Bld) 5.0 % 1.7-12.0 [facility] Neutrophils Auto (Bld) [#/Vo l]on 05-06-2024 Neutrophils (Bld) [#/Vol] 9.3 10 3/uL High 1.4-6.5 [facility] Neutrophils/100 WBC Auto (Bl d)on 05-06-2024 Neutrophils/100 WBC (Bld) 70.2 % 43.0-75.0 [facility] No Panel Informationon 05-06 Add Manual Differential See comment [facility] Comment on above: SEE SCANNED REPORT Eosinophils # (Auto) 0.4 10 3/uL 0.0-0.7 [facility] Immature Granulocyte # (Auto) 0.09 10 3/uL High 0.00-0.03 [facility] Platelet mean volume Auto (B ld) [Entitic vol]on 05-06-2024 Platelet mean volume (Bld) [Entitic vol] 8.5 fL Low 9.5-13.5 [facility] Platelets Auto (Bld) [#/Vol] on 05-06-2024 Platelets (Bld) [#/Vol] 419 10 3/uL 150-450 [facility] RBC Auto (Bld) [#/Vol]on RBC (Bld) [#/Vol] 4.73 10 6/uL 4.20-5.40 [facility] Basophils Auto (Bld) [#/Vol] on 05-01-2024 Basophils (Bld) [#/Vol] 0.1 10 3/uL 0.0-0.1 [facility] Basophils/100 WBC Auto (Bld) on 05-01-2024 Basophils/100 WBC (Bld) 0.3 % 0.2-2.0 [facility] Cholesterol in LDL Calc [Mas s/Vol]on 05-01-2024 Cholesterol in LDL [Mass/Vol] 56.0 mg/dL [facility] Comment on above: <100 mg/dl [id number] 0-129 mg/dl NEAR OR ABOVE [id number] mg/dl BORDERLINE [id number] mg/dl HIGH>190 mg/dl VERY HIGH Cholesterol in VLDL Calc [Ma ss/Vol]on 05-01-2024 Cholesterol in VLDL [Mass/Vol] 21.0 mg/dL [facility] Eosinophils/100 WBC Auto (Bl d)on 05-01-2024 Eosinophils/100 WBC (Bld) 0.6 % Low 0.9-7.0 [facility] Erythrocyte distribution wid th Auto (RBC) [Ratio]on 05-01-2024 Erythrocyte distribution width (RBC) [Ratio] 15.3 % High 11.0-15.0 [facility] Estimated glomerular filtrat ion rate (GFR) non- Americanon 05-01-2024 GFR/1.73 sq M.predicted among non-blacks MDRD (S/P/Bld) [Vol rate/Area] mL/min/{1.73_m2} >=60 [facility] Globulin Calc (S) [Mass/Vol] on 05-01-2024 Globulin (S) [Mass/Vol] 4.7 g/dL [facility] Hematocrit Auto (Bld) [Volum e fraction]on 05-01-2024 Hematocrit (Bld) [Volume fraction] 40.0 % 36.0-48.0 [facility] Hemoglobin [Mass/volume] in Bloodon 05-01-2024 Hemoglobin (Bld) [Mass/Vol] 12.9 g/dL 12.0-16.0 [facility] Laboratory - Chemistry and C hemistry - challengeon 05-01-2024 Albumin [Mass/Vol] 3.3 g/dL Low 3.4-5.0 [facility] ALP [Catalytic activity/Vol] 157 U/L High 46-116 [facility] ALT [Catalytic activity/Vol] 22 U/L 14-59 [facility] AST [Catalytic activity/Vol] 17 U/L 15-37 [facility] Bilirubin [Mass/Vol] 0.6 mg/dL 0.2-1.0 [facility] Calcium [Mass/Vol] 9.1 mg/dL 8.5-10.1 [facility] Chloride [Moles/Vol] 99 mmol/L 98-107 [facility] Cholesterol [Mass/Vol] 155 mg/dL <=200 [facility] Cholesterol in HDL [Mass/Vol] 78 mg/dL High 40-60 [facility] Comment on above: > or =60 mg/dl - LOW CARDIOVASCULAR RISK<40 mg/dl - HIGH CARDIOVASCULAR RISK CO2 [Moles/Vol] 27.0 mmol/L 21.0-32.0 [facility] Creatinine [Mass/Vol] 0.70 mg/dL 0.55-1.02 [facility] GFR/1.73 sq M.predicted MDRD (S/P/Bld) [Vol rate/Area] mL/min/{1.73_m2} >=60 [facility] Glucose [Mass/Vol] 124 mg/dL High 74-106 [facility] Potassium [Moles/Vol] 3.3 mmol/L Low 3.5-5.1 [facility] Protein [Mass/Vol] 8.0 g/dL 6.4-8.2 [facility] Sodium [Moles/Vol] 136 mmol/L 136-145 [facility] Triglyceride [Mass/Vol] 105 mg/dL <=150 [facility] Urea nitrogen [Mass/Vol] 15.0 mg/dL 7.0-18.0 [facility] Urea nitrogen/Creatinine [Mass ratio] 21.4 mg/mg [facility] Laboratory - Hematology and Cell countson 05-01-2024 Immature granulocytes/100 WBC (Bld) 0.5 % 0.0-0.5 [facility] Leukocytes [#/volume] correc toby for nucleated erythrocytes in Blood by Automated counon 05-01-2024 WBC corrected for nucl RBC Auto (Bld) [#/Vol] 19.0 10 3/uL High 4.0-11.0 [facility] Lymphocytes Auto (Bld) [#/Vo l]on 05-01-2024 Lymphocytes (Bld) [#/Vol] 2.0 10 3/uL 1.2-3.8 [facility] Lymphocytes/100 WBC Auto (Bl d)on 05-01-2024 Lymphocytes/100 WBC (Bld) 10.3 % Low 20.5-60.0 [facility] MCH Auto (RBC) [Entitic mass ]on 05-01-2024 MCH (RBC) [Entitic mass] 27.6 pg 26.7-34.0 [facility] MCHC Auto (RBC) [Mass/Vol]on 05-01-2024 MCHC (RBC) [Mass/Vol] 32.3 g/dL 29.9-35.2 [facility] MCV Auto (RBC) [Entitic vol] on 05-01-2024 MCV (RBC) [Entitic vol] 85.7 fL 81.0-99.0 [facility] Monocytes Auto (Bld) [#/Vol] on 05-01-2024 Monocytes (Bld) [#/Vol] 1.2 10 3/uL High 0.3-0.8 [facility] Monocytes/100 WBC Auto (Bld) on 05-01-2024 Monocytes/100 WBC (Bld) 6.2 % 1.7-12.0 [facility] Neutrophils Auto (Bld) [#/Vo l]on 05-01-2024 Neutrophils (Bld) [#/Vol] 15.6 10 3/uL High 1.4-6.5 [facility] Neutrophils/100 WBC Auto (Bl d)on 05-01-2024 Neutrophils/100 WBC (Bld) 82.1 % High 43.0-75.0 [facility] No Panel Informationon 05-01 Eosinophils # (Auto) 0.1 10 3/uL 0.0-0.7 [facility] Immature Granulocyte # (Auto) 0.09 10 3/uL High 0.00-0.03 [facility] Platelet mean volume Auto (B ld) [Entitic vol]on 05-01-2024 Platelet mean volume (Bld) [Entitic vol] 9.1 fL Low 9.5-13.5 [facility] Platelets Auto (Bld) [#/Vol] on 05-01-2024 Platelets (Bld) [#/Vol] 346 10 3/uL 150-450 [facility] RBC Auto (Bld) [#/Vol]on RBC (Bld) [#/Vol] 4.67 10 6/uL 4.20-5.40 [facility] Serum or plasma albumin/glob ulin mass ratioon 05-01-2024 Albumin/Globulin [Mass ratio] 0.7 {ratio} [facility] Serum or plasma anion gap de terminationon 05-01-2024 Anion gap [Moles/Vol] 13.3 mmol/L [facility] Serum or plasma total choles terol/high density lipoprotein (HDL) cholesterol mass franklin 05-01-2024 Cholesterol.total/Ch olesterol in HDL [Mass ratio] 2.0 {ratio} [facility] Comment on above: 3.3 - 4.4 LOW RISK4. 4 - 7.1 AVERAGE RISK7.1 - 11.0 MODERATE RISK>11.0 HIGH RISK Laboratory - Chemistry and C hemistry - challengeon 02-08-2024 Chloride [Moles/Vol] 102 mmol/L 98-107 [facility] CO2 [Moles/Vol] 28.0 mmol/L 21.0-32.0 [facility] Potassium [Moles/Vol] 4.0 mmol/L 3.5-5.1 [facility] Sodium [Moles/Vol] 138 mmol/L 136-145 [facility] Serum or plasma anion gap de terminationon 02-08-2024 Anion gap [Moles/Vol] 12.0 mmol/L [facility] XR KUB 1 VIEWon 01-20-2023 [...] by: EVERETT ERNANDEZ Date: 2023-01-20 11:11 Normal [facility] ELECTROLYTESon 10-27-2022 Anion gap [Moles/Vol] 12.4 mmol/L Normal [facility] Comment on above: Performed By: #### P THINT #### [facility] [address] [address] [address] Alejandrina Feng Chloride [Moles/Vol] 102 mmol/L Normal 98-107 [facility] Comment on above: Performed By: #### P THINT #### [facility] [address] [place] [address] Dr. Alejandrina Feng CO2 [Moles/Vol] 28.5 mmol/L Normal 21.0-32.[address] [facility] Comment on above: Performed By: #### P THINT #### [facility] [address] [address] [address] Alejandrina Feng Potassium [Moles/Vol] 3.9 mmol/L Normal 3.5-5.1 [facility] Comment on above: Performed By: #### P THINT #### [facility] [address] [address] [address] Alejandrina Feng Sodium [Moles/Vol] 139 mmol/L Normal 136-145 [facility] Comment on above: Performed By: #### P THINT #### [facility] [address] [address] [address] Alejandrina Feng US THYROIDon 08-29-2022 US [...] thyroid stable. TR 3 nodule TI-RADS: The [employer] TI-RADS committee's white paper recommendations for thyroid lesions classified as TR3 (mildly suspicious) are listed below: > 1.5 cm. Follow-up ultrasound in 1, 3, and 5 years. > 2.5 cm. FNA. J. Am Kyrie Radiol 2017;14:587-595. Electronically authenticated by: EVERETT ERNANDEZ Date: 2022-08-29 07:19 Normal [facility] XR KUB 1 VIEWon 07-14-2022 XR [...] by: JACKSON BACH Date: 2022-07-14 06:26 Normal [facility] ELECTROLYTESon 07-13-2022 Anion gap [Moles/Vol] 9.0 mmol/L Normal [facility] Comment on above: Performed By: #### E LEC #### [facility] [address] [place], [place] [address] Dr. Alejandrina Feng Chloride [Moles/Vol] 101 mmol/L Normal 98-107 [facility] Comment on above: Performed By: #### E LEC #### [facility] [address] [place], [place] [address] Dr. Alejandrina Feng CO2 [Moles/Vol] 27.5 mmol/L Normal 21.0-32.[address] [facility] Comment on above: Performed By: #### E LEC #### [facility] [address] [place], [place] [address] Dr. Alejandrina Feng Potassium [Moles/Vol] 3.5 mmol/L Normal 3.5-5.1 [facility] Comment on above: Performed By: #### E LEC #### [facility] [address] [place], [place] [address] Dr. Alejandrina Feng Sodium [Moles/Vol] 134 mmol/L Critically low 136-145 [facility] Comment on above: Performed By: #### E LEC #### [facility] [address] [address] [address] Alejandrina Feng MG MAMM SCREEN 3D TUSHAR CADon 07-06-2022 MG MAMM SCREEN 3D TUSHAR CAD Patient: ZARIA CORONA Exam Date: 07/06/2022 : 1955 Gender:F Ordering : DR SEGUN KINGSLEY D.O. Admission #: [id number] Family : Order #: [id number] CLICK HERE TO VIEW EXAM RADIOLOGY REPORT [...] Treatments None Family Cancers None LOCATION: [facility] BREAST COMPOSITION: Heterogeneously dense,which may obscure [...] MD on 07/06/2022 at 10:00 Normal [facility] CBC AUTO DIFFon 06-20-2022 BASO # 0.1 103/ul Normal 0.0-0.1 [facility] Comment on above: Performed By: #### C BC #### [facility] [address] [address] [address] Alejandrina Feng Basophils/100 WBC (Bld) 0.4 % Normal 0.2-2.0 [facility] Comment on above: Performed By: #### C BC #### [facility] [address] [address] [address] Alejandrina Feng EO # 0.1 103/ul Normal 0.0-0.7 [facility] Comment on above: Performed By: #### C BC #### [facility] [address] [address] [address] Alejandrina Feng Eosinophils/100 WBC (Bld) 0.6 % Critically low 0.9-7.0 [facility] Comment on above: Performed By: #### C BC #### [facility] [address] [address] [address] Alejandrina Feng Erythrocyte distribution width (RBC) [Ratio] 14.6 % Normal 11.0-15.0 [facility] Comment on above: Performed By: #### C BC #### [facility] [address] [place] [address] Dr. Alejandrina Feng Hematocrit (Bld) [Volume fraction] 43.6 % Normal 36.0-48.0 [facility] Comment on above: Performed By: #### C BC #### [facility] [address] [address] [address] Alejandrina Feng Hemoglobin (Bld) [Mass/Vol] 14.1 g/dL Normal 12.0-16.0 [facility] Comment on above: Performed By: #### C BC #### [facility] [address] [address] [address] Alejandrina Feng IG # 0.07 10e3/ul Critically high 0.00-0.03 [facility] Comment on above: Performed By: #### C BC #### [facility] [address] [address] [address] Alejandrina Feng IG % 0.6 % Critically high 0.0-0.5 [facility] Comment on above: Performed By: #### C BC #### [facility] [address] [place] [address] Dr. Alejandrina Feng LYMPH # 1.6 103/ul Normal 1.2-3.8 [facility] Comment on above: Performed By: #### C BC #### [facility] [address] [place] [address] Dr. Alejandrina Feng Lymphocytes/100 WBC (Bld) 12.4 % Critically low 20.5-60.0 [facility] Comment on above: Performed By: #### C BC #### [facility] [address] [place] [address] Dr. Alejandrina Feng MANUAL DIFF REQ NO Normal [facility] Comment on above: Performed By: #### C BC #### [facility] [address] [place] [address] Dr. Alejandrina Feng MCH (RBC) [Entitic mass] 27.9 pg Normal 26.7-34.0 [facility] Comment on above: Performed By: #### C BC #### [facility] [address] [place] [address] Dr. Alejandrina Feng MCHC (RBC) [Mass/Vol] 32.3 g/dL Normal 29.9-35.2 [facility] Comment on above: Performed By: #### C BC #### [facility] [address] [place] [address] Dr. Alejandrina Feng MCV (RBC) [Entitic vol] 86.3 fL Normal 81.0-99.0 [facility] Comment on above: Performed By: #### C BC #### [facility] [address] [place] [address] Dr. Alejandrina Feng MONO # 0.9 103/ul Critically high 0.3-0.8 [facility] Comment on above: Performed By: #### C BC #### [facility] [address] [place] [address] Dr. Alejandrina Feng Monocytes/100 WBC (Bld) 7.2 % Normal 1.7-12.0 [facility] Comment on above: Performed By: #### C BC #### [facility] [address] [place] [address] Dr. Alejandrina Feng NEUT # 10.0 103/ul Critically high 1.4-6.[address] [facility] Comment on above: Performed By: #### C BC #### [facility] [address] [place] [address] Dr. Alejandrina Feng Neutrophils/100 WBC (Bld) 78.8 % Critically high 43.0-75.0 [facility] Comment on above: Performed By: #### C BC #### [facility] [address] [place] [address] Dr. Alejandrina Feng Platelet mean volume (Bld) [Entitic vol] 8.8 fL Critically low 9.5-13.5 [facility] Comment on above: Performed By: #### C BC #### [facility] [address] [place] [address] Dr. Alejandrina Feng PLT 404 103/ul Normal 150-450 [facility] Comment on above: Performed By: #### C BC #### [facility] [address] [place] [address] Dr. Alejandrina Feng RBC 5.05 106/ul Normal 4.20-5.40 [facility] Comment on above: Performed By: #### C BC #### [facility] [address] [place] [address] Dr. Alejandrina Feng WBC 12.7 103/ul Critically high 4.0-11.[address] [facility] Comment on above: Performed By: #### C BC #### [facility] [address] [place] [address] Dr. Alejandrina Feng PROF 14(COMP METB)on 022 Albumin [Mass/Vol] 3.6 g/dL Normal 3.4-5.0 [facility] Comment on above: Performed By: #### C MP, TSH #### [facility] [address] [address] [address] Alejandrina Feng Albumin/Globulin [Mass ratio] 0.8 {ratio} Normal [facility] Comment on above: Performed By: #### C MP, TSH #### [facility] [address] [address] [address] Alejandrina Feng ALP [Catalytic activity/Vol] 182 U/L Critically high 46-116 [facility] Comment on above: Performed By: #### C MP, TSH #### [facility] [address] [address] [address] Alejandrina Feng ALT [Catalytic activity/Vol] 29 U/L Normal 14-59 [facility] Comment on above: Performed By: #### C MP, TSH #### [facility] [address] [place] [address] Dr. Alejandrina Feng Anion gap [Moles/Vol] 13.4 mmol/L Normal [facility] Comment on above: Performed By: #### C MP, TSH #### [facility] [address] [place] [address] Dr. Alejandrina Feng AST [Catalytic activity/Vol] 22 U/L Normal 15-37 [facility] Comment on above: Performed By: #### C MP, TSH #### [facility] [address] [place] [address] Dr. Alejandrina Feng Bilirubin [Mass/Vol] 0.5 mg/dL Normal 0.2-1.0 [facility] Comment on above: Performed By: #### C MP, TSH #### [facility] [address] [address] [address] Alejandrina Feng Calcium [Mass/Vol] 9.3 mg/dL Normal 8.5-10.1 [facility] Comment on above: Performed By: #### C MP, TSH #### [facility] [address] [address] [address] Alejandrina Feng Chloride [Moles/Vol] 102 mmol/L Normal 98-107 [facility] Comment on above: Performed By: #### C MP, TSH #### [facility] [address] [address] [address] Alejandrina Feng CO2 [Moles/Vol] 26.2 mmol/L Normal 21.0-32.[address] [facility] Comment on above: Performed By: #### C MP, TSH #### [facility] [address] [address] [address] Alejandrina Feng Creatinine [Mass/Vol] 0.94 mg/dL Normal 0.55-1.02 [facility] Comment on above: Performed By: #### C MP, TSH #### [facility] [address] [address] [address] Alejandrina Feng EGFR-AF FILIPINO >60 Normal >=[address] [facility] Comment on above: Performed By: #### C MP, TSH #### [facility] [address] [address] [address] Alejandrina Feng EGFR-NON AF FILIPINO 59 mL/min/1.73m2 Critically low >=60 [facility] Comment on above: Performed By: #### C MP, TSH #### [facility] [address] [address] [address] Alejandrina Feng Globulin (S) [Mass/Vol] 4.3 g/dL Normal [facility] Comment on above: Performed By: #### C MP, TSH #### [facility] [address] [address] [address] Alejandrina Feng Glucose [Mass/Vol] 101 mg/dL Normal 74-106 [facility] Comment on above: Performed By: #### C MP, TSH #### [facility] [address] [address] [address] Alejandrina Feng Potassium [Moles/Vol] 4.6 mmol/L Normal 3.5-5.1 [facility] Comment on above: Performed By: #### C MP, TSH #### [facility] [address] [address] [address] Alejandrina Feng Protein [Mass/Vol] 7.9 g/dL Normal 6.4-8.2 [facility] Comment on above: Performed By: #### C MP, TSH #### [facility] [address] [address] [address] Alejandrina Feng Sodium [Moles/Vol] 137 mmol/L Normal 136-145 [facility] Comment on above: Performed By: #### C MP, TSH #### [facility] [address] [address] [address] Alejandrina Feng Urea nitrogen [Mass/Vol] 19.0 mg/dL Critically high 7.0-18.0 [facility] Comment on above: Performed By: #### C MP, TSH #### [facility] [address] [place] [address] Dr. Alejandrina Feng Urea nitrogen/Creatinine [Mass ratio] 20.2 mg/mg Normal [facility] Comment on above: Performed By: #### C MP, TSH #### [facility] [address] [place] [address] Dr. Alejandrina Feng TSHon 06-20-2022 TSH 0.854 uIU/mL Normal 0.358-3.740 [facility] Comment on above: Performed By: #### C MP, TSH #### [facility] [address] [place] [address] Dr. Alejandrina Feng Covid-19 PCR ([facility])on 02-23 SARS-CoV-2 (COVID-19) RNA JACKSON+probe Ql (Unsp spec) Not detected Normal NOT DETECTED [facility] Comment on above: Result Comment: When [...] for this test is supported by the [place] of Health and Human Service's declaration that [...] used). Performed By: #### C BC #### [facility] [address] [place] [address] Dr. Alejandrina Feng ELECTROLYTESon 03-09-2022 Anion gap [Moles/Vol] 14.8 mmol/L Normal [facility] Comment on above: Performed By: #### E LEC #### [facility] [address] [place] [address] Dr. Alejandrina Feng Chloride [Moles/Vol] 103 mmol/L Normal 98-107 [facility] Comment on above: Performed By: #### E LEC #### [facility] [address] [place] [address] Dr. Alejandrina Feng CO2 [Moles/Vol] 25.2 mmol/L Normal 21.0-32.[address] [facility] Comment on above: Performed By: #### E LEC #### [facility] [address] [place] [address] Dr. Alejandrina Feng Potassium [Moles/Vol] 4.0 mmol/L Normal 3.5-5.1 [facility] Comment on above: Performed By: #### E LEC #### [facility] [address] [place] [address] Dr. Alejandrina Feng Sodium [Moles/Vol] 139 mmol/L Normal 136-145 [facility] Comment on above: Performed By: #### E LEC #### [facility] [address] [place] [address] Dr. Alejandrina Feng Covid-19 PCR ([facility])on SARS-CoV-2 (COVID-19) RNA JACKSON+probe Ql (Unsp spec) Not detected Normal NOT DETECTED [facility] Comment on above: Result Comment: This test is not yet approved or cleared by the [place] FDA. When there are no FDA-approved or cleared tests available, and other criteria are met, FDA can make tests available under an emergency access mechanism called an Emergency Use Authorization (EUA). The EUA for this test is supported by the [employer] of Health and Human Service's (HHS's) declaration [...] SARS-CoV-2. Performed By: #### C VDTBH #### [facility] [address] [place] [address] Dr. Alejandrina Feng BNPon 02-22-2022 Natriuretic peptide B (Bld) [Mass/Vol] 60.0 pg/mL Normal <=900.0 [facility] Comment on above: Performed By: #### P THINT #### [facility] [address] [place] [address] Dr. Alejandrina Feng CBC AUTO DIFFon 02-22-2022 BASO # 0.1 103/ul Normal 0.0-0.1 [facility] Comment on above: Performed By: #### C BC #### [facility] [address] [place] [address] Dr. Alejandrina Feng Basophils/100 WBC (Bld) 0.4 % Normal 0.2-2.0 [facility] Comment on above: Performed By: #### C BC #### [facility] [address] [place] [address] Dr. Alejandrina Feng EO # 0.2 103/ul Normal 0.0-0.7 [facility] Comment on above: Performed By: #### C BC #### [facility] [address] [place] [address] Dr. Alejandrina Feng Eosinophils/100 WBC (Bld) 1.4 % Normal 0.9-7.0 [facility] Comment on above: Performed By: #### C BC #### [facility] [address] [place] [address] Dr. Alejandrina Feng Erythrocyte distribution width (RBC) [Ratio] 13.3 % Normal 11.0-15.0 [facility] Comment on above: Performed By: #### C BC #### [facility] [address] [place] [address] Dr. Alejandrina Feng Hematocrit (Bld) [Volume fraction] 45.1 % Normal 36.0-48.0 [facility] Comment on above: Performed By: #### C BC #### [facility] [address] [place] [address] Dr. Alejandrina Feng Hemoglobin (Bld) [Mass/Vol] 14.4 g/dL Normal 12.0-16.0 [facility] Comment on above: Performed By: #### C BC #### [facility] [address] [place] [address] Dr. Alejandrina Feng IG # 0.05 10e3/ul Critically high 0.00-0.03 [facility] Comment on above: Performed By: #### C BC #### [facility] [address] [place] [address] Dr. Alejandrina Feng IG % 0.4 % Normal 0.0-0.5 [facility] Comment on above: Performed By: #### C BC #### [facility] [address] [place] [address] Dr. Alejandrina Feng LYMPH # 1.6 103/ul Normal 1.2-3.8 [facility] Comment on above: Performed By: #### C BC #### [facility] [address] [place] [address] Dr. Alejandrina Feng Lymphocytes/100 WBC (Bld) 11.2 % Critically low 20.5-60.0 [facility] Comment on above: Performed By: #### C BC #### [facility] [address] [place] [address] Dr. Alejandrina Feng MANUAL DIFF REQ NO Normal [facility] Comment on above: Performed By: #### C BC #### [facility] [address] [place] [address] Dr. Alejandrina Feng MCH (RBC) [Entitic mass] 28.0 pg Normal 26.7-34.0 [facility] Comment on above: Performed By: #### C BC #### [facility] [address] [place] [address] Dr. Alejandrina Feng MCHC (RBC) [Mass/Vol] 31.9 g/dL Normal 29.9-35.2 [facility] Comment on above: Performed By: #### C BC #### [facility] [address] [place] [address] Dr. Alejandrina Feng MCV (RBC) [Entitic vol] 87.6 fL Normal 81.0-99.0 [facility] Comment on above: Performed By: #### C BC #### [facility] [address] [place] [address] Dr. Alejandrina Feng MONO # 0.6 103/ul Normal 0.3-0.8 [facility] Comment on above: Performed By: #### C BC #### [facility] [address] [place] [address] Dr. Alejandrina Feng Monocytes/100 WBC (Bld) 4.5 % Normal 1.7-12.0 [facility] Comment on above: Performed By: #### C BC #### [facility] [address] [place] [address] Dr. Alejandrina Feng NEUT # 11.4 103/ul Critically high 1.4-6.[address] [facility] Comment on above: Performed By: #### C BC #### [facility] [address] [place] [address] Dr. Alejandrina Feng Neutrophils/100 WBC (Bld) 82.1 % Critically high 43.0-75.0 [facility] Comment on above: Performed By: #### C BC #### [facility] [address] [place] [address] Dr. Alejandrina Feng Platelet mean volume (Bld) [Entitic vol] 9.1 fL Critically low 9.5-13.5 [facility] Comment on above: Performed By: #### C BC #### [facility] [address] [place] [address] Dr. Alejandrina Feng PLT 363 103/ul Normal 150-450 [facility] Comment on above: Performed By: #### C BC #### [facility] [address] [address] [address] Alejandrina Feng RBC 5.15 106/ul Normal 4.20-5.40 [facility] Comment on above: Performed By: #### C BC #### [facility] [address] [address] [address] Alejandrina Feng WBC 13.9 103/ul Critically high 4.0-11.[address] [facility] Comment on above: Performed By: #### C BC #### [facility] [address] [address] [address] Alejandrina Feng PROF 14(COMP METB)on 022 Albumin [Mass/Vol] 4.0 g/dL Normal 3.4-5.0 [facility] Comment on above: Performed By: #### P THINT #### [facility] [address] [place] [address] Dr. Alejandrina Feng Albumin/Globulin [Mass ratio] 0.8 {ratio} Normal [facility] Comment on above: Performed By: #### P THINT #### [facility] [address] [place] [address] Dr. Alejandrina Feng ALP [Catalytic activity/Vol] 200 U/L Critically high 46-116 [facility] Comment on above: Performed By: #### P THINT #### [facility] [address] [place] [address] Dr. Alejandrina Feng ALT [Catalytic activity/Vol] 29 U/L Normal 14-59 [facility] Comment on above: Performed By: #### P THINT #### [facility] [address] [address] [address] Alejandrina Feng Anion gap [Moles/Vol] 12.2 mmol/L Normal [facility] Comment on above: Performed By: #### P THINT #### [facility] [address] [place] [address] Dr. Alejandrina Feng AST [Catalytic activity/Vol] 25 U/L Normal 15-37 [facility] Comment on above: Performed By: #### P THINT #### [facility] [address] [address] [address] Alejandrina Feng Bilirubin [Mass/Vol] 0.4 mg/dL Normal 0.2-1.0 [facility] Comment on above: Performed By: #### P THINT #### [facility] [address] [address] [address] Alejandrina Feng Calcium [Mass/Vol] 9.5 mg/dL Normal 8.5-10.1 [facility] Comment on above: Performed By: #### P THINT #### [facility] [address] [address] [address] Alejandrina Feng Chloride [Moles/Vol] 101 mmol/L Normal 98-107 [facility] Comment on above: Performed By: #### P THINT #### [facility] [address] [place] [address] Dr. Alejandrina Feng CO2 [Moles/Vol] 25.8 mmol/L Normal 21.0-32.[address] [facility] Comment on above: Performed By: #### P THINT #### [facility] [address] [place] [address] Dr. Alejandrina Feng Creatinine [Mass/Vol] 0.69 mg/dL Normal 0.55-1.02 [facility] Comment on above: Performed By: #### P THINT #### [facility] [address] [place] [address] Dr. Alejandrina Feng EGFR-AF FILIPINO >60 Normal >=[address] [facility] Comment on above: Performed By: #### P THINT #### [facility] [address] [address] [address] Alejandrina Feng EGFR-NON AF FILIPINO >60 Normal >=60 [facility] Comment on above: Performed By: #### P THINT #### [facility] [address] [place] [address] Dr. Alejandrina Feng Globulin (S) [Mass/Vol] 4.8 g/dL Normal [facility] Comment on above: Performed By: #### P THINT #### [facility] [address] [address] [address] Alejandrina Feng Glucose [Mass/Vol] 96 mg/dL Normal 74-106 [facility] Comment on above: Performed By: #### P THINT #### [facility] [address] [address] [address] Alejandrina Feng Potassium [Moles/Vol] 4.0 mmol/L Normal 3.5-5.1 [facility] Comment on above: Performed By: #### P THINT #### [facility] [address] [address] [address] Alejandrina Feng Protein [Mass/Vol] 8.8 g/dL Critically high 6.4-8.2 [facility] Comment on above: Performed By: #### P THINT #### [facility] [address] [address] [address] Alejandrina Feng Sodium [Moles/Vol] 135 mmol/L Critically low 136-145 [facility] Comment on above: Performed By: #### P THINT #### [facility] [address] [address] [address] Alejandrina Feng Urea nitrogen [Mass/Vol] 18.0 mg/dL Normal 7.0-18.0 [facility] Comment on above: Performed By: #### P THINT #### [facility] [address] [address] [address] Alejandrina Feng Urea nitrogen/Creatinine [Mass ratio] 26.1 mg/mg Normal [facility] Comment on above: Performed By: #### P THINT #### [facility] [address] [address] [address] Alejandrina Feng TROPONIN, HIGH SENSITIVITYon 02-22-2022 HSTROP 7.4 pg/mL Normal 4.0-51.3 [facility] Comment on above: Result Comment: CUT- OFF POINTS HAVE BEEN ESTABLISHED BASED ON THE FOURTH UNIVERSAL DEFINITIONS OF MYOCARDIAL INFARCTION. THE UPPER REFERENCE LIMIT (URL) OF TROPONIN, DEFINED THE 99TH PERCENTILE OF cTnI DISTRIBUTION IN A REFERENCE POPULATION, HAS BEEN CONFIRMED THE DECISION THRESHOLD FOR [place] DIAGNOSIS. Performed By: #### H STROPN #### [facility] [address] [place] [address] Dr. Alejandrina Feng HSTROP 6.4 pg/mL Normal 4.0-51.3 [facility] Comment on above: Result Comment: CUT- OFF POINTS HAVE BEEN ESTABLISHED BASED ON THE FOURTH UNIVERSAL DEFINITIONS OF MYOCARDIAL INFARCTION. THE UPPER REFERENCE LIMIT (URL) OF TROPONIN, DEFINED THE 99TH PERCENTILE OF cTnI DISTRIBUTION IN A REFERENCE POPULATION, HAS BEEN CONFIRMED THE DECISION THRESHOLD FOR MN DIAGNOSIS. Performed By: #### P THINT #### [facility] [address] [place] [address] Dr. Alejandrina Feng XR CHEST 1 Von [...] by: EVERETT ERNANDEZ Date: 2022-02-22 13:20 Normal [facility] OSMOLALITYon 02-02-2022 Osmolality [Osmolality] 284 mosm/kg Normal 280-301 [facility] Comment on above: Performed By: #### P THINT #### [facility] [address] [place] [address] Dr. Alejandrina Feng OSMOLALITY URINEon 2 Osmolality, Urine 629 mOsmol/kg Normal [facility] Comment on above: Result Comment: 24 h r : 300 - 900 Random: 50 - 1400 After 12hr fluid restriction: >850 Performed By: #### O SMOU #### [facility] [address] [place] [address] Dr. Alejandrina Feng PTH INTACTon 02-01-2022 PTH, Intact 42 pg/mL Normal 15-65 [facility] Comment on above: Performed By: #### P THINT #### [facility] [address] [place] [address] Dr. Alejandrina Feng PROF CHEM 8 (BAS METB)on Anion gap [Moles/Vol] 12.7 mmol/L Normal [facility] Comment on above: Performed By: #### P THINT #### [facility] [address] [place] [address] Dr. Alejandrina Feng Calcium [Mass/Vol] 8.7 mg/dL Normal 8.5-10.1 [facility] Comment on above: Performed By: #### P THINT #### [facility] [address] [address] [address] Alejandrina Feng Chloride [Moles/Vol] 100 mmol/L Normal 98-107 [facility] Comment on above: Performed By: #### P THINT #### [facility] [address] [place] [address] Dr. Alejandrina Feng CO2 [Moles/Vol] 27.7 mmol/L Normal 21.0-32.[address] [facility] Comment on above: Performed By: #### P THINT #### [facility] [address] [place] [address] Dr. Alejandrina Feng Creatinine [Mass/Vol] 0.65 mg/dL Normal 0.55-1.02 [facility] Comment on above: Performed By: #### P THINT #### [facility] [address] [place] [address] Dr. Alejandrina Feng EGFR-AF FILIPINO >60 Normal >=[address] [facility] Comment on above: Performed By: #### P THINT #### [facility] [address] [place] [address] Dr. Alejandrina Feng EGFR-NON AF FILIPINO >60 Normal >=60 [facility] Comment on above: Performed By: #### P THINT #### [facility] [address] [place] [address] Dr. Alejandrina Feng Glucose [Mass/Vol] 103 mg/dL Normal 74-106 [facility] Comment on above: Performed By: #### P THINT #### [facility] [address] [place] [address] Dr. Alejandrina Feng Potassium [Moles/Vol] 3.4 mmol/L Critically low 3.5-5.1 [facility] Comment on above: Performed By: #### P THINT #### [facility] [address] [place] [address] Dr. Alejandrina Feng Sodium [Moles/Vol] 137 mmol/L Normal 136-145 [facility] [facility] Comment on above: Performed By: #### P THINT #### [facility] [address] [place] [address] Dr. Alejandrina Feng Urea nitrogen [Mass/Vol] 15.0 mg/dL Normal 7.0-18.0 [facility] Comment on above: Performed By: #### P THINT #### [facility] [address] [place] [address] Dr. Alejandrina Feng Urea nitrogen/Creatinine [Mass ratio] 23.1 mg/mg Normal [facility] Comment on above: Performed By: #### P THINT #### [facility] [address] [place] [address] Dr. Alejandrina Feng SODIUM RANDOM URINEon 2021 Sodium (U) [Moles/Vol] 74 mmol/L Normal 30-90 [facility] Comment on above: Performed By: #### N AU #### [facility] [address] [place] [address] Dr. Alejandrina Feng TSHon 01-31-2022 TSH 0.791 uIU/mL Normal 0.358-3.740 [facility] Comment on above: Performed By: #### P THINT #### [facility] [address] [place] [address] Dr. Alejandrina Feng TSH RANGE SEE BELOW Normal [facility] Comment on above: Result Comment: <0.3 4 UIU/ml HYPERTHYROID 0.34-5.60 UIU/ml EUTHYROID >5.60 UIU/ml HYPOTHYROID Performed By: #### P THINT #### [facility] [address] [place] [address] Dr. Alejandrina Feng Vital Signs Date Time Vital Sign Value Performing Clinician Facility 12-02-2024 10:40-0400 Body height 162.56 cm [facility] 12-02-2024 10:40-0400 Body mass index (BMI) [Ratio] 24.6 kg/m2 [facility] 12-02-2024 10:40-0400 Body weight 65.09 kg [facility] 12-02-2024 10:40-0400 Diastolic blood pressure 82 mm[Hg] [facility] 12-02-2024 10:40-0400 Heart rate 80 /min [facility] 12-02-2024 10:40-0400 Respiratory rate 12 /min [facility] 12-02-2024 10:40-0400 Systolic blood pressure 130 mm[Hg] [facility] 09-24-2024 10:51-0500 Body height 162.56 cm [facility] 09-24-2024 10:51-0500 Body mass index (BMI) [Ratio] 24.7 kg/m2 [facility] 09-24-2024 10:51-0500 Body weight 65.31 kg [facility] 09-24-2024 10:51-0500 Diastolic blood pressure 76 mm[Hg] [facility] 09-24-2024 10:51-0500 Heart rate 74 /min [facility] 09-24-2024 10:51-0500 Systolic blood pressure 118 mm[Hg] [facility] 08-07-2024 09:24-0500 Body height 162.56 cm [facility] 08-07-2024 09:24-0500 Body mass index (BMI) [Ratio] 24.9 kg/m2 [facility] 08-07-2024 09:24-0500 Body weight 65.94 kg [facility] 08-07-2024 09:24-0500 Diastolic blood pressure 79 mm[Hg] [facility] 08-07-2024 09:24-0500 Heart rate 83 /min [facility] 08-07-2024 09:24-0500 Respiratory rate 12 /min [facility] 08-07-2024 09:24-0500 Systolic blood pressure 120 mm[Hg] [facility] 07-26-2024 09:06-0400 Body height 162.56 cm [facility] 07-26-2024 09:06-0400 Body mass index (BMI) [Ratio] 25.1 kg/m2 [facility] 07-26-2024 09:06-0400 Body weight 66.39 kg [facility] 07-26-2024 09:06-0400 Diastolic blood pressure 78 mm[Hg] [facility] 07-26-2024 09:06-0400 Heart rate 76 /min [facility] 07-26-2024 09:06-0400 Respiratory rate 12 /min [facility] 07-26-2024 09:06-0400 Systolic blood pressure 129 mm[Hg] [facility] 04-15-2024 14:16-0400 Body height 162.56 cm [facility] 04-15-2024 14:16-0400 Body mass index (BMI) [Ratio] 25.9 kg/m2 [facility] 04-15-2024 14:16-0400 Body weight 68.71 kg [facility] 04-15-2024 14:16-0400 Diastolic blood pressure 83 mm[Hg] [facility] 04-15-2024 14:16-0400 Heart rate 80 /min [facility] 04-15-2024 14:16-0400 Respiratory rate 12 /min [facility] 04-15-2024 14:16-0400 Systolic blood pressure 123 mm[Hg] [facility] 02-20-2024 14:50-0400 Blood Pressure Location Kelsie Orzech [facility] 02-20-2024 14:50-0400 Body temperature 98.06 [degF] Kelsie Orzech [facility] 02-20-2024 14:50-0400 Diastolic blood pressure 84 mm[Hg] Kelsie Orzech [facility] 02-20-2024 14:50-0400 Heart rate 83 /min Kelsie Orzech [facility] 02-20-2024 14:50-0400 Respiratory rate 16 /min Kelsie Orzech [facility] 02-20-2024 14:50-0400 Systolic blood pressure 123 mm[Hg] Kelsie Orzech [facility] 02-20-2024 12:02-0400 Body height 162.56 cm [facility] 02-20-2024 12:02-0400 Body mass index (BMI) [Ratio] 25.8 kg/m2 [facility] 02-20-2024 12:02-0400 Body weight 68.26 kg [facility] 02-20-2024 12:02-0400 Diastolic blood pressure 82 mm[Hg] [facility] 02-20-2024 12:02-0400 Heart rate 83 /min [facility] 02-20-2024 12:02-0400 Respiratory rate 12 /min [facility] 02-20-2024 12:02-0400 Systolic blood pressure 130 mm[Hg] [facility] 12-27-2023 09:02-0400 Body height 162.56 cm [facility] 12-27-2023 09:02-0400 Body mass index (BMI) [Ratio] 26.2 kg/m2 [facility] 12-27-2023 09:02-0400 Body weight 69.11 kg [facility] 12-27-2023 09:02-0400 Diastolic blood pressure 84 mm[Hg] [facility] 12-27-2023 09:02-0400 Heart rate 76 /min [facility] 12-27-2023 09:02-0400 Respiratory rate 12 /min [facility] 12-27-2023 09:02-0400 Systolic blood pressure 127 mm[Hg] [facility] 12-19-2023 08:57-0400 Body height 162.56 cm [facility] 12-19-2023 08:57-0400 Body mass index (BMI) [Ratio] 25.9 kg/m2 [facility] 12-19-2023 08:57-0400 Body weight 68.54 kg [facility] 12-19-2023 08:57-0400 Diastolic blood pressure 85 mm[Hg] [facility] 12-19-2023 08:57-0400 Heart rate 98 /min [facility] 12-19-2023 08:57-0400 Respiratory rate 12 /min [facility] 12-19-2023 08:57-0400 Systolic blood pressure 124 mm[Hg] [facility] 10-09-2023 10:00-0500 Body height 162.56 cm Segun Ball Other [facility] 10-09-2023 10:00-0500 Body mass index (BMI) [Ratio] 25.81 kg/m2 Segun Ball Other [facility] [employer] Other 10-09-2023 10:00-0500 Body weight 68.22 kg Segun Ball Other [facility] 10-09-2023 10:00-0500 Diastolic blood pressure 83 mm[Hg] Segun Ball Other [facility] 10-09-2023 10:00-0500 Respiratory rate 12 /min Segun Ball Other [facility] [employer] Other 10-09-2023 10:00-0500 Systolic blood pressure 126 mm[Hg] Segun Ball Other [facility] 09-19-2023 13:45-0500 Body height 162.56 cm Segun Ball Other [facility] [employer] Other 09-19-2023 13:45-0500 Body mass index (BMI) [Ratio] 26.02 kg/m2 Segun Ball Other [facility] [employer] Other 09-19-2023 13:45-0500 Body weight 68.77 kg Segun Ball Other [facility] Other 09-19-2023 13:45-0500 Diastolic blood pressure 79 mm[Hg] Segun Ball Other [facility] Other 09-19-2023 13:45-0500 Respiratory rate 12 /min Segun Ball Other [facility] Other 09-19-2023 13:45-0500 Systolic blood pressure 123 mm[Hg] Segun Ball Other [facility] Other 04-10-2023 11:00-0400 Body height 162.56 cm Segun Ball Other [facility] Other 04-10-2023 11:00-0400 Body mass index (BMI) [Ratio] 26.29 kg/m2 Segun Ball Other [facility] Other 04-10-2023 11:00-0400 Body weight 69.49 kg Segun Ball Other [facility] Other 04-10-2023 11:00-0400 Diastolic blood pressure 74 mm[Hg] Segun Ball Other [facility] Other 04-10-2023 11:00-0400 Respiratory rate 12 /min Segun Ball Other [facility] Other 04-10-2023 11:00-0400 Systolic blood pressure 108 mm[Hg] Segun Ball Other [facility] Other 01-25-2023 12:30-0400 Body height 162.56 cm Segun Ball Other [facility] Other 01-25-2023 12:30-0400 Body mass index (BMI) [Ratio] 26.05 kg/m2 Segun Ball Other [facility] Other 01-25-2023 12:30-0400 Body weight 68.86 kg Segun Ball Other [facility] Other 01-25-2023 12:30-0400 Diastolic blood pressure 81 mm[Hg] Segun Ball Other [facility] Other 01-25-2023 12:30-0400 Respiratory rate 12 /min Segun Ball Other [facility] Other 01-25-2023 12:30-0400 Systolic blood pressure 119 mm[Hg] Segun Ball Other [facility] Other 12-06-2022 11:00-0400 Body height 162.56 cm Segun Ball Other [facility] Other 12-06-2022 11:00-0400 Body mass index (BMI) [Ratio] 25.98 kg/m2 Segun Ball Other [facility] Other 12-06-2022 11:00-0400 Body weight 68.68 kg Segun Ball Other [facility] Other 12-06-2022 11:00-0400 Diastolic blood pressure 74 mm[Hg] Segun Ball Other [facility] Other 12-06-2022 11:00-0400 Respiratory rate 16 /min Segun Ball Other [facility] Other 12-06-2022 11:00-0400 Systolic blood pressure 117 mm[Hg] Segun Ball Other [facility] Other 07-13-2022 13:16-0400 Blood Pressure Location NOE SHANE [facility] 07-13-2022 13:16-0400 Diastolic blood pressure 88 mm[Hg] NOE SHANE [facility] 07-13-2022 13:16-0400 Heart rate 79 /min NOE SHANE [facility] 07-13-2022 13:16-0400 Respiratory rate 16 /min NOE SHANE [facility] 07-13-2022 13:16-0400 Systolic blood pressure 138 mm[Hg] NOE SHANE [facility] Encounters Encounter Date Encounter Type Care Provider Facility Start: 03-02-2026 [facility] Start: 03-03-2025 End: 03-03-2025 ambulatory Enrique VÁSQUEZ Facility:[facility] Start: 03-03-2025 End: 03-03-2025 Patient encounter procedure Enrique VÁSQUEZ [facility] Start: 01-30-2025 End: 01-30-2025 ambulatory [facility] Work Phone: Start: 01-30-2025 End: 01-30-2025 Patient encounter procedure [facility] Work Phone: Start: 12-02-2024 End: 12-02-2024 ambulatory [facility] Work Phone: Start: 12-02-2024 End: 12-02-2024 Patient encounter procedure [facility] Work Phone: Start: 09-24-2024 End: 09-24-2024 Patient encounter procedure [facility] Work Phone: Start: 08-07-2024 End: 08-07-2024 ambulatory [facility] Work Phone: Start: 08-07-2024 End: 08-07-2024 Patient encounter procedure [facility] Work Phone: Start: 07-31-2024 Non-patient / Non-visit [facility] Work Phone: Start: 07-26-2024 End: 07-26-2024 ambulatory [facility] Work Phone: Start: 07-26-2024 End: 07-26-2024 Patient encounter procedure [facility] Work Phone: Start: 05-06-2024 End: 05-06-2024 ambulatory [facility] Facility:[facility] Start: 05-06-2024 Non-patient / Non-visit [facility] Work Phone: Start: 05-01-2024 Non-patient / Non-visit [facility] Work Phone: Start: 04-15-2024 End: 04-15-2024 ambulatory [facility] Work Phone: Start: 04-15-2024 End: 04-15-2024 Encounter for general adult medical examination without abnormal findings [facility] Start: 04-15-2024 End: 04-15-2024 Patient encounter procedure [facility] Work Phone: Start: 02-20-2024 End: 02-20-2024 Lab Drop off Kelsie X Orzech [facility] Start: 02-20-2024 End: 02-20-2024 Patient encounter procedure Kelsie X Orzech [facility] Start: 02-20-2024 End: 02-20-2024 ambulatory [facility] Work Phone: Start: 02-20-2024 End: 02-20-2024 Patient encounter procedure [facility] Work Phone: Start: 02-08-2024 Non-patient / Non-visit [facility] [employer] [facility] Work Phone: Start: 12-27-2023 End: 12-27-2023 ambulatory [facility] Work Phone: Start: 12-27-2023 End: 12-27-2023 Patient encounter procedure [facility] Work Phone: Start: 12-19-2023 End: 12-19-2023 ambulatory [facility] Work Phone: Start: 12-19-2023 End: 12-19-2023 Patient encounter procedure [facility] Work Phone: Start: 11-29-2023 Non-patient / Non-visit [facility] [employer] [facility] [employer] Work Phone: Start: 10-10-2023 End: 10-10-2023 ambulatory Segun Ball Other [facility] Other Start: 10-10-2023 Telephone encounter Segun Sancho [facility] Start: 10-09-2023 End: 10-09-2023 ambulatory Segun Ball Other [facility] Other Start: 10-09-2023 Office outpatient vi sit 25 minutes Segun Sancho [facility] Start: 10-09-2023 End: 10-09-2023 Patient encounter procedure [facility] Work Phone: Start: 09-22-2023 End: 09-22-2023 ambulatory Segun Ball Other [facility] Other Start: 09-22-2023 Telephone encounter Segun Ball [facility] Start: 09-19-2023 End: 09-19-2023 ambulatory Segun Ball Other [facility] Other Start: 09-19-2023 Office outpatient vi sit 15 minutes Segun Ball [facility] Start: 09-13-2023 Telephone encounter Segun Ball [facility] Start: 09-13-2023 End: 09-13-2023 ambulatory ELOINA DUMONT [place] [employer] Other Start: 07-19-2023 End: 07-19-2023 ambulatory Segun Ball Other [facility] Other Start: 07-19-2023 Office outpatient vi sit 15 minutes Segun Ball [facility] Start: 06-20-2023 End: 06-20-2023 ambulatory Segun Ball Other [facility] Other Start: 06-20-2023 Telephone encounter Segun Ball [facility] Start: 04-13-2023 End: 04-13-2023 ambulatory Segun Ball Other [facility] Other Start: 04-13-2023 Telephone encounter Segun Ball [facility] Start: 04-10-2023 End: 04-10-2023 ambulatory Segun Ball Other [facility] Other Start: 04-10-2023 Encounter for genera l adult medical examination without abnormal findings Segun Ball [facility] Start: 04-10-2023 Periodic preventive med est patient 65yrs& older Segun Ball [facility] Start: 01-25-2023 End: 01-25-2023 ambulatory Segun Ball Other [facility] Other Start: 01-25-2023 Office outpatient vi sit 15 minutes Segun Ball [facility] Start: 01-20-2023 End: 01-21-[address] ENRIQUE VÁSQUEZ . Facility:[facility] Start: 12-06-2022 End: 12-06-2022 ambulatory Segun Kingsley Other [facility] Other Start: 12-06-2022 Office outpatient vi sit 25 minutes Segun Kingsley [facility] Start: 10-27-2022 End: 10-28-[address] ENRIQUE VÁSQUEZ . Facility:[facility] Start: 08-26-2022 End: 08-27-[address] ELOINA DUMONT Facility:[facility] Start: 07-13-2022 End: 07-14-2022 ambulatory Jackson Bach Facility:[facility] Start: 07-13-2022 End: 07-13-2022 Patient encounter procedure NOE SHANE [facility] Start: 07-06-2022 End: 07-07-[address] SEGUN KINGSLEY Facility:[facility] Start: 06-20-2022 End: 06-21-[address] SEGUN KINGSLEY Facility:[facility] Start: 04-01-2022 Adult health examination Segun Kingsley Other [facility] Other Start: 03-11-2022 End: 03-11-[address] SEGUN KINGSLEY Facility:[facility] Start: 03-09-2022 End: 03-10-[address] ENRIQUE VÁSQUEZ . Facility:[facility] Start: 03-02-2022 End: 03-02-[address] SEGUN KINGSLEY Facility:[facility] Start: 02-22-2022 End: 02-22-[address] SEGUN KINGSLEY Facility:[facility] Start: 01-31-2022 End: 02-01-[address] SEGUN KINGSLEY Facility:[facility] Procedures Date Procedure Procedure Detail Performing Clinician Start: 02-08-2024 Radiography of fzxypx-lpeqor-zujyapm Kelsie Perez Start: 06-03-2021 Extracorporeal shock wave [...] lic 1999 panel - Serum or Plasma [facility] Comprehensive metabo lic 1999 panel - Serum or Plasma [facility] MG Breast - bilateral Screening [facility] Patient Education Low back pain in adults [facility] Work Phone: XR Foot - right GE 3 Views F [facility] Immunizations Immunization Date Immunization Notes Care Provider Danyelle kumari 06-22-2022 influenza virus vaccine, split virus (incl. purified surface antigen) Segun Kingsley Other [facility] [facility] [employer] Other 06-22-2022 influenza virus vaccine, unspecified formulation [facility] 06-22-2022 influenza, high dose seasonal, preservative-free Segun Kingsley Other [facility] [employer] Other 04-01-2022 pneumococcal conjuga te vaccine, 13 valent NOE SHANE [facility] 09-01-2021 COVID-19 Vaccine Pfi zer - Documentation Purposes Only Segun Kingsley Other [facility] 09-01-2021 SARS-CoV-2 (COVID-19 ) Ad26 vaccine, recombinant NOE SHANE [facility] 07-19-2021 influenza virus vaccine, split virus (incl. purified surface antigen) Segun Kingsley Other [facility] [employer] Other 07-19-2021 influenza virus vaccine, unspecified formulation [facility] 05-26-2021 influenza virus vaccine, unspecified formulation NOE SVITLANA [facility] 01-05-2021 diphtheria, tetanus toxoids and acellular pertussis vaccine, unspecified formulation Segun Kingsley Other [facility] 01-05-2021 tetanus toxoid, redu agustin diphtheria toxoid, and acellular pertussis vaccine, adsorbed NOE SVITLANA [facility] 12-25-2020 COVID-19, mRNA, LNP- S, PF, 30 mcg/0.3 mL dose NOE SVITLANA [facility] Comment on above: Reason for Medicatio n: Prophylaxis 12-04-2020 COVID-19, mRNA, LNP- S, PF, 30 mcg/0.3 mL dose NOE SVITLANA [facility] Comment on above: Reason for Medicatio n: Prophylaxis 08-14-2020 pneumococcal polysaccharide vaccine, 23 valent Segun Kingsley Other [facility] 08-11-2020 influenza virus vaccine, split virus (incl. purified surface antigen) Segun Kingsley Other [facility] [employer] Other 08-11-2020 influenza virus vaccine, unspecified formulation [facility] 08-10-2020 influenza virus vaccine, unspecified formulation NOE SVITLANA [facility] 07-25-2018 influenza virus vaccine, split virus (incl. purified surface antigen) Segun Kingsley Other [facility] Other 07-25-2018 influenza virus vaccine, unspecified formulation NOE SHANE [facility] 10-12-2017 influenza virus vaccine, split virus (incl. purified surface antigen) Segun Kingsley Other [facility] Other 10-12-2017 influenza virus vaccine, unspecified formulation [facility] Payers Date Payer Category Payer Self-pay 2024 Medicare [id number] 2023 Private Health Insurance [id number] 1959 Unknown [id number] 2. [id number] 1954 Unknown [id number] 2.16.84 [id number] 1954 Unknown [id number] 2.16.84 0.1.846858.3.579.2.593 1954 Unknown [id number] 2.16.84 0.1.836497.3.579.2.593 1954 Unknown [id number] 2.16.84 0.1.118013.3.579.2.593 1954 Unknown [id number] 2.16.84 0.1.621473.3.579.2.593 1954 Unknown [id number] 2.16.84 0.1.177325.3.579.2.593 1954 Unknown [id number] 2.16.84 0.1.348388.3.579.2.593 1954 Unknown [id number] 2.16.84 0.1.316661.3.579.2.593 1954 Unknown [id number] 2.16.84 0.1.866286.3.579.2.593 1954 Unknown [id number] 2.16.84 0.1.331324.3.579.2.593 1954 Unknown [id number] 2.16.84 0.1.300788.3.579.2.593 1954 Unknown [id number] 2.16.840 .1.475088.3.579.2.1259 1954 Unknown [id number] 2.16.8 40.1.020904.3.579.2.727 1954 Unknown [id number] 2.16.8 [id number] Unknown [id number] 2.16.8 [id number] Social History Date Type Detail Facility Start: 07-13-2022 End: 03-03-2025 Tobacco smoking status Never smoked tobacco (finding) [facility] Tobacco smoking status Never [facility] Sex Assigned At Female [facility] Start: 1955 Sex Assigned At Female F [facility] Start: 11-27-2020 End: 08-07-2024 Sex Female (finding) [facility] Sexual Orientation [facility] Functional Status Date Assessment Result Facility 02-20-2024 Functional Status N/A [facility] 07-13-2022 Functional Status N/A [facility] Clinical Notes 07-13-2022 to 03-03-2025 Note [...] include: ?8 oz (237 mL) of milk, oerhxhc-jwbydykezket-mtxtt milk, and calcium-fortifiedfruit juice. Calcium-fortified means that [...] ?Spinach (cooked), rhubarb, beets, sweet potatoes, and Togolese chard. ?Peanuts. ?Potato chips, latvian fries, and baked potatoes with skin on. ?Nuts and nut products. ?Chocolate. If you regularly take a diuretic medicine, make sure to eat at least 1 or 2 servings of fruits or vegetables that are high in potassium each day. These include: ?Avocado. ?Banana. ?[place], prune, carrot, or tomato juice. ?Baked potato. [...] magnesium, fish oil, or vitamin B6. Take ujlt-zil-ycddeoe and prescription medicines only as told by [...] Casseroles. Pizza. Lasagna. Frozen meals. Potato chips. Malay fries. The items listed above may not [...] provider. Document Revised: 12/22/2022 Document Reviewed: 12/22/2022 [employer] Patient Education 2023 [employer]. Follow Up Care 02/20/2024 15:25:41 With:MARCY GRESHAM, ES Jacobs Address: [facility] [address], [place] [id number]- When: Unknown [facility] 03-03-2025 Note Patient Education Nephrology [...] ? 8 oz (237 mL) of milk, mdldfgz-fzmofjtjpezi-husbg milk, and calcium-fortifiedfruit juice. Calcium-fortified means that [...] Spinach (cooked), rhubarb, beets, sweet potatoes, and Togolese chard. ? Peanuts. ? Potato chips, latvian fries, and baked potatoes with skin on. ? Nuts and nut products. ? Chocolate. ??? If you regularly take a diuretic medicine, make sure to eat at least 1 or 2 servings of fruits or vegetables that are high in potassium each day. These include: ? Avocado. ? Banana. ? [place], prune, carrot, or tomato juice. ? Baked [...] fish oil, or vitamin B6. ??? Take xhfp-tqq-kogkxwi and prescription medicines only as told by your health (more content not included)... [facility] 12-02-2024 Evaluation note Diagnosis Onset Date Resolution Elevated cholesterol acute 2024 10:28am Essential (primary) hypertension acute December 02, 2024 10:28am Gastroesophageal reflux 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 acute December 02 025 10:28am Lumbar spondylosis acute December 02, 2024 10:28am Primary insomnia acute December 022024 10:28am Recurrent major depressive disorder, in full remission acute December 02, 2024 10:28am Rhinitis noneactive December 02 10:28am [facility] [place] Work Phone: 1(964) 560-269312-31-2024 Evaluation note* Diagnosis Onset Date Resolution Status [...] full remission acute Emeka h 2024 10:28am [facility] [place] Work Phone: 1(725) 537-880211-01-2024 Evaluation note* Diagnosis Onset Date Resolution Status Admit Date Allergic contact dermatitis due to clothing acute July 26 8:51am Chronic venous insufficiency of lower extremity acute July 26 8:51am Elevated cholesterol acute [facility] 2023 9:17am Essential (primary) hypertension acu te August 07, 2024 9:17am Gastroesophageal reflux dise ase with esophagitis without hemorrhage acute August 07, 2 024 9:17am Lumbar spondylosis acute [facility] 2023 9:17am Primary insomnia acute August 07, 2024 9:17am Recurrent major depressive disorder, in full remission acute [facility] 2023 9:17am [facility] [place] Work Phone: 1(520) 376-446405-28-2024 Hospital Discharge instructions Patient Education 02/20/2024 16:06:08 [...] include: ?8 oz (237 mL) of milk, gryogmx-uwgmknkjtvkk-hbjlw milk, and calcium- fortifiedfruit juice. Calcium-fortified means [...] ?Spinach (cooked), rhubarb, beets, sweet potatoes, and Togolese chard. ?Peanuts. ?Potato chips, latvian fries, and baked potatoes with skin on. ?Nuts and nut products. ?Chocolate. If you regularly take a diuretic medicine, make sure to eat at least 1 or 2 servings of fruits or vegetables that are high in potassium each day. These include: ?Avocado. ?Banana. ?[place], prune, carrot, or tomato juice. ?Baked potato. [...] magnesium, fish oil, or vitamin B6. Take twec-zwf-apvsifb and prescription medicines only as told by [...] Casseroles. Pizza. Lasagna. Frozen meals. Potato chips. Malay fries. The items listed above may not [...] provider. Document Revised: 12/22/2022 Document Reviewed: 12/22/2022 [employer] Patient Education 2022 [employer]. 02/20/2024 16:06:04 Kidney Stones, Sbgi-aj-Ikkj Kidney Stones Kidney stones are rock-like masses [...] Follow these instructions at home: Medicines Take lctu-cun-ydegifi and prescription medicines only as told by [...] provider. Document Revised: 05/16/2022 Document Reviewed: 05/16/2022 [employer] Patient Education 2022 [employer] [facility] 01-16-2024 Evaluation note* Encounter Date Diagnosis Assessment Notes Treatment Notes Treatment Clinical Notes Sep, COVID-19 (ICD-10 - U07.1) [facility] 01-15-2024 Evaluation note* Encounter Date Diagnosis [...] interruption. Instructed to avoid d/c meds abruptly [facility] Other 12-26-2023 Evaluation note* Encounter Date Diagnosis [...] needed - XR to r/o compression fx [facility] Other 12-26-2023 Evaluation note* Encounter Date Diagnosis [...] needed - XR to r/o compression fx [facility] Other 12-20-2023 Evaluation note* Encounter Date Diagnosis Assessment Notes Treatment Notes Treatment Clinical Notes Aug, Nontoxic single thyroid nodule (ICD-10 - E04.1) Serial US w/ stable size and appearance. Referred to ENT w/ no further scans recommended. [facility] Other 10-25-2023 Evaluation note* Encounter Date Diagnosis [...] Amlodipine to 5mg qd while taking Paxlovid [facility] Other 07-17-2023 Evaluation note* Encounter Date Diagnosis [...] SBE and yearly mammogram - due in [facility] Other 05-03-2023 Evaluation note* Encounter Date Diagnosis [...] pneumonia Due for COVID booster and Shingrix [facility] Other 03-14-2023 Evaluation note* Encounter Date Diagnosis [...] or drinking prior to bedtime. Continue PPI [facility] Other 10-19-2022 Hospital Discharge instructions Patient Education 07/13/2022 13:30:11 Kidney Stones, Bqog-ss-Siqc Kidney Stones Kidney stones are rock-like masses [...] Follow these instructions at home: Medicines Take ilnj-kgg-hzkindp and prescription medicines only as told by [...] 02/27/2009 Document Revised: 01/28/2020 Document Reviewed: 01/28/2020 [employer] Patient Education 2019 [employer]. Follow Up Care 10/18/2021 12:21:40 With:NOE SHANE PA-C, URL Address: [address] [place] [address] [phone] When: Unknown [facility] 10-19-2022 Evaluation + Plan note Future Scheduled Tests Laboratory* Basic Metabolic Panel 07/13/22 [facility] evaluation + Plan note Future Appointments Appointment Date:02/24/2025 09:15:00 AM Scheduled Provider:Enrique VÁSQUEZ MD Location:[facility] Appointment Type:URO Office Visit [facility] evaluation + Plan note Future Appointments Appointment Date:02/24/2025 09:15:00 AM Scheduled Provider:Enrique VÁSQUEZ MD Location:[facility] Appointment Type:URO Office Visit Diagnostic Tests Pending * [facility]ments Appointment Date:03/02/2026 10:30:00 AM Scheduled Provider:Enrique VÁSQUEZ MD Location:[facility] Appointment Type:URO Office Visit [facility] evaluation noteNo [facility] Other evaluation note* Diagnosis Onset Date Resolution Status Plantar fasciitis of right foot noneactive Right foot pain noneactive [facility] [place] Work Phone: evaluation note* Diagnosis Onset Date Resolution Status Plantar fasciitis of right foot noneactive Right foot pain noneactive Essential (primary) hypertension acute Osteoporosis acute Avulsion fracture of metatarsal bone of right foot noneactive [facility] [place] Work Phone: evaluation note* Diagnosis Onset Date Resolution Status Plantar fasciitis of right foot noneactive Right foot pain noneactive Osteoporosis acute Avulsion fracture of metatarsal bone of right foot noneactive [facility] [place] Work Phone: evaluation note* Diagnosis Onset Date Resolution Status IBS (irritable bowel syndrome) acute Low back pain acute Elevated cholesterol acute Essential (primary) hypertension acute Gastroesophageal reflux dise ase with esophagitis without hemorrhage acute Lumbar spondylosis acute Osteoporosis acute Primary insomnia acute Recurrent major depressive d isorder, in full remission acute Screening mammogram for breast cancer noneactive [facility] [place] Work Phone: evaluation note* Diagnosis Onset Date Resolution Status IBS (irritable bowel syndrome) acute Low back pain acute Elevated cholesterol acute Essential (primary) hypertension acute Gastroesophageal reflux dise ase with esophagitis without hemorrhage acute Lumbar spondylosis acute Primary insomnia acute Recurrent major depressive d isorder, in full remission acute Screening mammogram for breast cancer noneactive Wellness examination noneact [facility] Work Phone: Evaluation noteNo assessment information available [facility] [place] Work Phone: History general Narrative - Reported* [...] GENEVA/BSO 2009 Hospitalization History SEE SURGICAL HX [facility] Other History general [facility] - [facility] course Narrative No data available for this section [facility] Hospital Discharge instructions No data available for this section [facility] No data available for this section [facility] reason for referral (narrative)* Reason Referral for treatme nt of chronic low back pain Diagnosis 1 Acute bilateral low back pain without sciatica (M54.50) Diagnosis 2 Lumbar spondylosis ( M47.816) Referral Organization [facility] Jacey rivas Referring Provider First Name Segun Referring Provider Last Name Sancho Referring Provider Specialty Internal Me dicine Referred Organization [facility] Referred Address [address], [place],[address] Referred Provider Specialty Pain Medicin e Referral [...] for injections. Clinical Notes Include XR results [facility] Other Summary Purpose Family History No Family [...] content) 3 month Follow upPossible Sp rondar [id number] COVID +No Informationback painback painXR results6 monthCOVID + INFORMATION SOURCE (unrecogn ized section and content) DATE CREATED AUTHOR 01/27/2023 [facility] DATE CREATED AUTHOR AUTHOR'S ORGANIZ ATION 09/14/2023 [facility] DATE CREATED AUTHOR AUTHOR'S ORGANIZ ATION 05/07/2024 [facility] DATE CREATED AUTHOR AUTHOR'S ORGANIZ ATION 03/04/2025 [facility] DATE CREATED AUTHOR AUTHOR'S ORGANIZ ATION 03/05/2025 [facility] Goals (unrecognized section and content) Goals [...] BE BASED ON THE PRIMARY CLINICAL RECORDS. [employer] [facility]. provides no warranty or guarantee of the accuracy or completeness of information in this document.
== END 2025-04-10 10:08 | disposition home or self-care (01) ==
LOC: PM 10:07
PROVIDERS: PCP Internal Medicine; Visit Provider Nurse Practitioner
DX: M46.1 Sacroiliitis, not elsewhere classified (principal); M47.816 Spondylosis without myelopathy or radiculopathy, lumbar region
CPT/HCPCS: G0463

== ENCOUNTER 2025-08-14 13:46 | Outpatient (OUT) | payer OTHER, SELFPAY ==
--- OUTSIDE RECORDS SUMMARY | 2025-08-14 13:51 | XMS_ITS | Clinical Summary ---
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 Role Phone Segun Kingsley DO Primary Care Provider [phone] Allergies No known active allergies Medications MedicationSigDispense QuantityRefillsLast FilledStart DateEnd DateStatus amLODIPine (Norvasc) 5 MG tablet Take 5 mg by mouth 1 (one) time each day at the same timeActive traMADol ER (Conzip) 100 MG 24 hr capsule traMADol HClActive fexofenadine (Guillermina Allergy) 180 MG tablet Take 180 mg by mouth in the morning.Active temazepam (Restoril) 15 MG capsule Take 15 mg by mouth 1 (one) time each day at the same timeActive Active Problems ProblemNoted DateDiagnosed DateThyroid qptxat7309/07/20233556Qbpyuhfsdcip06/14/2023 Depression with wykmpoo5409/07/20236243Thtcxn33/14/2023hronic back pain09/07/2023 Irritable bowel syndrome with /14/2023Lumbar hwrnvpgihpg53/14/2023 Family History Medical HistoryRelationNameCommentsHeart failureFatherCancerMotherHypertension MotherHeart failurePaternal GrandfatherRelationNameStatusCommentsFatherMother Paternal Grandfather Social History Tobacco UseTypesPacks/DayYears UsedDateSmoking Tobacco: NeverSmokeless Tobacco: Never Tobacco Cessation:Counseling Given: Not Answered Alcohol UseStandard Drinks/WeekCommentsNot Currently0 (1 standard drink = 0.6 oz pure alcohol)CommentsUnknownSex and Gender InformationValueDate Recorded Sex Assigned at BirthNot on fileLegal LjyPqgooj14/15/2023 6:37 PM EDTGender IdentityNot on fileSexual OrientationNot on file Last Filed Vital Signs Vital SignReadingTime TakenCommentsBlood Ubszzwku778/6909/13/2023 11:08 AM EST Pulse--Temperature--Respiratory Rate--Oxygen Saturation--Inhaled Oxygen Concentration--Rbfqzc33.5 kg (151 lb)09/14/2022 12:00 PM BCAOfyhpz291.6 cm (5' 4 )09/14/2022 12:00 PM ESTBody Mass Index25.9209/14/2022 12:00 PM EST Plan of Treatment Not on file Insurance * Guarantor: Zaria Corona TypeRelation to PatientDate of BirthPhone Billing AddressPersonal/JtpzoeDrhj1955 [id number] [address] Care Teams Team MemberRelationshipSpecialtyStart DateEnd Date Segun Kingsley DO PCP - GeneralInternal Hmfvujnk05/7/23
--- OUTSIDE RECORDS SUMMARY | 2025-08-14 13:52 | XMS_ITS | CCD ---
Author Organization [facility] CliniSyny Care Team Providers Care Land Leveler Name Role Phone SEGUN KINGSLEY Primary Care Physician [phone] Segun Kingsley VÁSQUEZ ., DR RENEE Attending [...] Unavailable WILFRIDO ., STEPHAN Consulting Unavailable TIMMIS, ANUM H Attending Unavailable SEGUN KINGSLEY Referring Unavailable Segun Kingsley Attending Unavailable Sancho, Segun Admitting Unavailable Enrique VÁSQUEZ Attending Unavailable Enrique VÁSQUEZ Attending Unavailable Segun Kingsley DO Primary Care Provider [phone] Sancho LEUNG, Segun Attending Provider [phone] Segun Kingsley DO Primary Care Provider [phone] Segun Kingsley DO Attending Provider Mago Tan MD Attending Provider Segun Kingsley DO Primary Care Provider Allergies Allergy ClassificationReported Allergen(s)Allergy TypeDate of OnsetReaction(s) Facility (2 sources)patient allergy list reviewed by nurse or physiciaPropensity to adverse ypkosofru19-55-7871Ftbhuxi:Md7 Other (2 sources)No Known Medication Allergies; Translations: [No Known Medication Allergies]Propensity to adverse reactions (disorder)[facility] Repository Medications Current Medications MedicationDrug Class(es)DatesSig (Normalized)Sig (Original)acetaminophen 500 mg oral tablet (4 sources)Start: 02-14-6263sqqc 500 mg by mouth twice dailyTylenol 500 mg, Oral, BID Start Date: 05/05/21 Status: Ordered Repeat number: [id number] actuat albuterol 0.09 mg/actuat metered dose inhaler (12 sources)beta2-Adrenergic AgonistStart: 38-45-5440mjbc 2 puff(s) by inhalation every four hours as neededStart: 24-70-2286kpmv 2 puff(s) by inhalation every four hours as neededAlbuterol Sulfate HFA 108 (90 Base) MCG/ACT 2 puffs as needed Inhalation every 4 hrs Oct, Not-TakingStart: 41-47-0905Tcidt: 78-43-7488egfm 2 puff(s) by inhalation every four hours as neededAlbuterol Sulfate HFA 108 (90 Base) MCG/ACT 2 puffs as needed Inhalation every 4 hrs Oct, Not-TakingamLODIPine 10 mg oral tablet (20 sources)Dihydropyridine Calcium Channel BlockerStart: 98-33-0484ssbf 1 tablet by mouth once dailyStart: 12-18-2023 End: 71-42-7835qnju 1 tablet by mouth once dailyAmlodipine 10 mg tablet Discontinued 10 MG PO Daily April 15, 2024 2:43pm April 24, 2025 5:27pm Start: 43-75-6838qmck 1 tablet by mouth once dailyamLODIPine 5 mg Tab 5 mg = 1 tab(s), Oral, Daily Start Date: 05/05/21 Status: Ordered Repeat number:1take 1 tablet by mouth once dailyatorvastatin 40 mg oral tablet (20 sources)HMG-CoA Reductase InhibitorStart: 96-78-7837ucjw 1 tablet by mouth once daily in the eveningStart: 11-29-2023 End: 66-27-5611mxxr 1 tablet by mouth once daily in the eveningAtorvastatin 40 mg tablet Discontinued 0 .ROUTE .COMPLEX November 29, 2023 10:55pm April 1542:47pm TAKE ONE TABLET BY MOUTH ONCE DAILY IN THE EVENINGStart: 11-29-2023 End: 62-19-1081cole 1 tablet by mouth once daily in the eveningAtorvastatin Discontinued 0 .ROUTE .COMPLEX November 29, 2023 10:55pm April 15, 2024 2:47pm TAKE ONE TABLET BY MOUTH ONCE DAILY IN THE EVENINGStart: 68-63-2445mmas 1 tablet by mouth once daily in the eveningAtorvastatin Active 0 .ROUTE .COMPLEX November 29, 2023 10:55pm TAKE ONE TABLET BY MOUTH ONCE DAILY IN THE EVENINGStart: 05-05-2021 End: 34-64-5684rwep 1 tablet by mouth once dailyAtorvastatin 40 mg tablet Discontinued 40 MG PO Daily April 15, 2024 2:43pm November 21, 2024 10:47pmazelastine hydrochloride 0.137 mg/actuat metered dose nasal spray (20 sources)Histamine-1 Receptor AntagonistStart: 63-63-4348tvvq 1 puff(s) nasal route twice dailytake 1 puff(s) nasal route twice dailyAzelastine HCl 137 MCG/SPRAY 1 puff in each nostril Nasally Twice a day Activecalcium carbonate 1500 mg oral tablet (4 sources)Start: 43-48-5441rdgi 1 tablet by mouth twice dailycalcium (as carbonate) 600 mg oral tablet 600 mg = 1 tab(s), Oral, BID Start Date: 05/05/21 Status: Ordered Repeat number: 1FLUoxetine 40 mg oral capsule (20 sources)Serotonin Reuptake InhibitorStart: 09-26-2024 End: 19-20-3997amvt 1 capsule by mouth once dailyStart: 03-29-2024 End: 30-03-8500uxuf 1 capsule by mouth once dailyFluoxetine 40 mg capsule Discontinued 0 .ROUTE .COMPLEX March 29, 2024 8:44am April 15, 2024 2:47pm TAKE ONE CAPSULE BY MOUTH ONCE DAILYStart: 05-05-2021 End: 45-55-1806emie 1 capsule by mouth once dailyFluoxetine 40 mg capsule Discontinued 40 MG PO Daily April 15, 2024 2:44pm September 26:55pm fluticasone propionate 0.05 mg/actuat metered dose nasal spray (12 sources)CorticosteroidStart: 09-89-0454xzkg 1 spray(s) nasal route once dailyStart: 23-94-6259ucyl 1 spray(s) nasal route once dailyFluticasone Propionate 50 MCG/ACT 1 spray in each nostril Nasally Once a day for 21 days Oct, Not-TakingStart: 92-06-1704gbtaoNZAFHSaywedbih 12.5 mg oral capsule (20 sources)Thiazide DiureticStart: 03-03-2025 End: 73-06-0786nkay 1 capsule by mouth once dailyhydrochlorothiazide 12.5 mg Cap 12.5 mg = 1 cap(s), Oral, Daily, X 90 day(s), # 90 cap(s), Refills(s) 3, Pharmacy: [facility], 163, cm, 03/03/25 11:35:00 EDT, Height/Length Dosing, 67, kg, 03/03/25 11:35:00 EDT, Weight Dosing Start Date: 03/03/25 Stop Date: 02/26/26 Status: Ordered Quantity: 90.0 Unit: cap(s) Repeat number: 4Start: 78-49-4898Cyrdr: 82-61-3942vyxs 12.5 mg by mouth once dailyHydrochlorothiazide Active 12.5 MG PO Daily April 15, 2024 2:42pmStart: 06-08-2022 End: 75-92-5843yekp 1 tablet by mouth once dailyHydrochlorothiazide 25 mg tablet Discontinued 25 MG PO Daily December 18, 2023 12:00am April 15, 2024 2:47pm Lisinopril (12 sources)Angiotensin Converting Enzyme InhibitorLisinopril Not-Taking/PRN Lisinopril Not-TakingmethylPREDNISolone 4 mg oral tablet (12 sources)CorticosteroidStart: 36-97-7621Tgbqv: 25-45-3422qbhlbihaao 40 mg delayed release oral capsule (20 sources)Proton Pump InhibitorStart: 27-08-3190lrlm 1 capsule by mouth once daily at breakfastStart: 10-18-2021 End: 48-61-7311kdny 1 capsule by mouth once daily at breakfastOmeprazole 40 mg capsule,delayed release(DR/EC) Discontinued 40 MG PO Daily April 15, 2024 2:44pm October 23, 2024 7:04pm ON AN EMPTY STOMACH, FOLLOWED IN 30 MINS BY BREAKFASTpaxlovid (300/100) 20 x 150 mg & 10 x 100mg tablet therapy pack (2 sources)Start: 99-63-9904rzst 3 tablets by mouth every twelve hoursPaxlovid (300/100) 20 x 150 MG & 10 x 100MG 3 tablets Orally Twice a day for 5 days Sep, ActiveStart: 15-64-2353Birlfrey (300/100) 20 x 150 MG & 10 x 100MG as directed Orally bid for 5 days Jun, ActivePotassium Bicarb & Chloride (12 sources)Potassium Bicarb & Chloride 20 MEQ packet daily ActivePotassium Bicarb And Chloride (7 sources)Start: 77-95-5545Habirrnjm Bicarb And Chloride Active 1 PACKET PO Daily December 18, 2023 12:00amPotassium Bicarb And Chloride 20 mEq packet (5 sources)Start: 19-34-1088hnmh 20 mEq by mouth once dailyStart: 98-12-5852yjnt 20 mEq by mouth once dailyPotassium Bicarb And Chloride 20 mEq packet Active 1 PACKET PO Daily December 18, 2023 12:00am Complies with drug therapyStart: 60-69-5544ypde 20 mEq by mouth once dailyPotassium Bicarb And Chloride 20 mEq packet Active 1 PACKET PO Daily December 18, 2023 12:00amStart: 46-26-4943tkek 20 mEq by mouth once dailyPotassium Bicarb And Chloride 20 mEq packet Active 1 PACKET PO Daily December 17, 2023 11:00pmtiZANidine (12 sources)Central alpha-2 Adrenergic AgonisttiZANidine HCl Not-Taking/PRN tiZANidine HCl Not-TakingtraMADol (12 sources)Opioid AgonisttraMADol HCl Not-Taking/PRNtraMADol HCl Not-Taking triamcinolone acetonide 0.005 mg/mg topical ointment (20 sources)CorticosteroidStart: 49-37-1217Iggkt: 81-62-4716Mehcuqmcrisro Acetonide 0.5 % ointment Active 1 APPLIC TOPICAL Twice daily 45 July 262:00amStart: 81-38-2154Jgjrgdfppfpec Acetonide 0.5 % ointment Active 1 APPLIC TOPICAL Twice daily 45 July 251:00pmStart: 07-26-2024 Triamcinolone Acetonide Active 1 APPLIC TOPICAL Twice daily 45 July 26, 2024 12:00amStart: 32-38-8196Aswfbljdauoim Acetonide 0.025 % 1 application Externally twice daily as needed for 14 days ActiveVitamin D3 (4 sources)Start: 49-22-2941Tzgaswc D3 1,000 International_Unit, Oral, Daily Start Date: 05/05/21 Status: Ordered Repeat number:1Start: 68-28-3890Yvunoii D3 1,000 International_Unit, Oral, Daily Start Date: 05/05/21 Status: Ordered{20 (nirmatrelvir 150 MG Oral Tablet) / 10 (ritonavir 100 MG Oral Tablet) } Pack [Paxlovid 5-Day] (1 source)Start: 69-59-6477Wiibuior (300/100) 20 x 150 MG & 10 x 100MG as directed Orally bid for 5 days Jun, Active Completed/Discontinued Medications MedicationDrug Class(es)DatesSig (Normalized)Sig (Original)potassium bicarbonate 25 meq effervescent oral tablet (4 sources)Start: 04-24-2024 End: 70-25-2021hgol 1 tablet by mouth twice dailyKlor-Con/EF 25 mEq oral tablet, effervescent 25 mEq = 1 tab(s), Oral, BID, X 90 day(s), # 180 tab(s), Refills(s) 3, Pharmacy: [facility]/pharmacy #[id number], 163, cm, 02/20/24 14:56:00 EDT, Height/Length Dosing,68.1, kg, 02/20/24 14:56:00 EDT, Weight Dosing Start Date: 04/24/24 Stop Date: 04/19/25 Status: Ordered Quantity: 180.0 Unit: tab(s) Repeat number: 4 Start: 32-85-1647zgyj 1 tablet by mouth twice dailyKlor-Con/EF 25 mEq oral tablet, effervescent 25 mEq = 1 tab(s), Oral, BID, # 60 tab(s), Refills(s) 11, Pharmacy: [facility]/pharmacy #[id number], 163, cm, 02/13/23 14:27:00 EDT, Height/Length Dosing, 70, kg, 02/13/23 14:27:00 EDT, Weight Dosing Start Date: 04/10/23 Status: OrderedStart: 35-45-7834xmsh 1 tablet by mouth twice dailyEffer-K 25 mEq oral tablet, effervescent 25 mEq = 1 tab(s), Oral, BID, # 60 tab(s), Refills(s) 8, Ph armacy: [facility], 163, cm, 10/18/21 11:50:00 EST, Height/Length Dosing, 70, kg, 10/18/21 11:50:00 EST, Weight Dosing Start Date: 10/18/21 Status: OrderedpredniSONE 20 mg oral tablet (6 sources)Start: 07-26-2024 End: 82-12-6405Ubgxxqpzmh 20 mg tablet Discontinued 20 MG PO .COMPLEX 15 July 26, 2024 12:00am September 24, 2024 11:48am 20mg bid w/ food x 5 days then qd w/ food x 5 daystemazepam 15 mg oral capsule (20 sources)BenzodiazepineStart: 05-05-2021 End: 37-64-9655ovpr 1 capsule by mouth once daily at bedtime as neededTemazepam 15 mg capsule Discontinued 15 MG PO Daily at bedtime as needed for insomnia April 15, 2024 2:46pm September 06, 2024 5:06pm Problems Active Problems Problem ClassificationProblemDateDocumented DateEpisodic/ChronicAbdominal pain (20 sources)Flank pain; Translations: [Epigastric pain]Onset: 03-04-2015 00-17-6745UechcmuiBpmgd bronchitis (14 sources)Acute bronchitis; Translations: [Acute bronchitis, unspecified] Onset: 59-19-9858WuwrltpxTpsxnbkp reactions (13 sources)Contact dermatitis; Translations: [Contact dermatitis and other eczema, due to unspecified cause]Onset: 829945-90-4196QpqdymraTuykivv disorders (20 sources)Generalized anxiety disorder; Translations: [Generalized anxiety disorder]Onset: 940874-78-0205ItmtyfqCxdplrvm of urinary tract (20 sources)Kidney stone; Translations: [Calculus of kidney]Onset: 07-13-2022 EpisodicCardiac dysrhythmias (13 sources)Tachycardia; Translations: [Tachycardia, unspecified]Onset: 29-47-9857KzkdsqxtMmzbiujc mellitus without complication (8 sources)Impaired fasting glycemia; Translations: [Impaired fasting glucose] 77-77-1703HlsyqjxxXnddtjup of white blood cells (7 sources)Leukocytosis; Translations: [Elevated white blood cell count, unspecified]74-35-7207EjnwadqZxdzfogbg of lipid metabolism (20 sources)Hyperlipidemia; Translations: [Hypercholesterolemia]05-05-2021 ChronicDiverticulosis and diverticulitis (9 sources)Diverticulosis of sigmoid colon; Translations: [Diverticulosis of large intestine without perforation or abscess without bleeding]ChronicE Codes: Natural/environment (1 source)Bitten or stung by nonvenomous insect and other nonvenomous arthropods, initial encounterEpisodicEsophageal disorders (20 sources)Gastro-esophageal reflux disease with esophagitis; Translations: [Gastroesophageal reflux 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]Onset: 901250-29-9321NhsiqbeEhcpuolwd hypertension (20 sources)Hypertensive disorder; Translations: [Essential hypertension]Onset: 736008-30-2635UxzyptgVtlrk and electrolyte disorders (20 sources)Hypokalemia; Translations: [Hypokalemia]Onset: 14-54-0566Bdawykmx Fracture of lower limb (3 sources)Fracture of unspecified metatarsal bone(s), right foot, initial encounter for closed fracture; Translations: [Closed fracture of metatarsal bone(s)]86-15-6392ShrcelmdTekquzqxohtvl symptoms and ill-defined conditions (20 sources)Microscopic hematuria; Translations: [Dysuria]Onset: 09-09-2016 41-51-0256NlvpexgdZhohvciosbofs and screening for infectious disease (7 sources)Vaccination given; Translations: [Encounter for immunization]Episodic Inflammation; infection of eye (except that caused by tuberculosis or sexually transmitteddisease) (9 sources)Acute atopic conjunctivitis; Translations: [Acute atopic conjunctivitis, bilateral]EpisodicMalaise and fatigue (20 sources)Fatigue; Translations: [Other fatigue]Onset: 68-52-0645Yvkeixug Miscellaneous mental health disorders (17 sources)Globus sensation; 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] 59-80-0516SqpcczjVfmz disorders (20 sources)Single episode of major depression in full remission; Translations: [Major depressive disorder, single episode, in full remission]Onset: 09-25-1959 ChronicOsteoarthritis (4 sources)Xzbkljtyy93-91-0012EihtflbGgnbtyqteryr (15 sources)Osteoporosis; Translations: [Age-related osteoporosis without current pathological fracture]08-56-5326GcqdldiMiwqr circulatory disease (7 sources)Cardiovascular symptoms; Translations: [Other specified symptoms and signs involving the circulatory and respiratory systems]EpisodicOther congenital anomalies (7 sources)Congenital spondylolysis of lumbosacral region; Translations: [Congenital spondylolysis, lumbosacral region]Onset: 01-36-1504LdnldpeVfajt connective tissue disease (4 sources)Plantar fascial fibromatosis; Translations: [Plantar fascial fibromatosis]37-49-1297VgbbsqwuLfagb connective tissue disease (4 sources)Pain in right foot; Translations: [Pain in limb]68-60-2148Saukuyia Other diseases of kidney and ureters (3 sources)Hydronephrosis due to ureteral hjyjazplapz42-01-5546NfibogszFvybv diseases of veins and lymphatics (5 sources)Venous insufficiency of leg; Translations: [Venous insufficiency (chronic) (peripheral)]21-27-1757LjnvpncoTvbvt diseases of veins and lymphatics (1 source)Venous insufficiency (chronic) (peripheral); Translations: [Venous (peripheral) insufficiency, unspecified]30-51-4879HxenksaxTwqqf ear and sense organ disorders (7 sources)Conductive hearing loss, bilateral; Translations: [Conductive hearing loss, bilateral]Onset: 25-10-9946QctovezWozxa ear and sense organ disorders (14 sources)Impacted cerumen; Translations: [Impacted cerumen, bilateral]Onset: 17-21-2059ZvmgtjgzZbvvx gastrointestinal disorders (20 sources)Irritable bowel syndrome characterized by constipation; Translations: [Irritable bowel syndrome with constipation]Onset: 09-07-2023 91-92-4607TcajbimSofuv gastrointestinal disorders (7 sources)Irritable bowel syndrome with diarrhea; Translations: [Irritable bowel syndrome with diarrhea]Onset: 13-60-8245DucyggkJkhlf gastrointestinal disorders (15 sources)Irritable bowel syndrome; Translations: [Irritable bowel syndrome] 45-03-3477LscbgvyZjmmz gastrointestinal disorders (2 sources)Irritable bowel syndrome without diarrhea; Translations: [Irritable bowel syndrome]41-28-5729RrczvmsWfdrq gastrointestinal disorders (1 source)Change in bowel habit; Translations: [Other symptoms involving digestive system]71-67-4721JfmjshjvOtedi injuries and conditions due to external causes (7 sources)History of fall; Translations: [History of falling]EpisodicOther liver diseases (12 sources)Liver mass; Translations: [Hepatomegaly, not elsewhere classified] EpisodicOther liver diseases (7 sources)Large liver; Translations: [Hepatomegaly, not elsewhere classified] EpisodicOther lower respiratory disease (7 sources)Chronic cough; Translations: [Chronic cough]EpisodicOther nutritional; endocrine; and metabolic disorders (19 sources)Hypercalcemia; Translations: [Hypercalcemia]ChronicOther nutritional; endocrine; and metabolic disorders (1 source)Hypercalcemia; Translations: [HYPERCALCEMIA]Onset: 56-65-8165Fdrhjye Other screening for suspected conditions (not mental disorders or infectious disease) (7 sources)Imaging of genitourinary system abnormal; Translations: [Nonspecific (abnormal) findings on radiological and other examination of genitourinary organs]Onset: 17-11-6144IsuybacIwmyc screening for suspected conditions (not mental disorders or infectious disease) (20 sources)Encounter for screening mammogram for malignant neoplasm of breast; Translations: [Encounter for screening for diseases of the blood and blood- forming organs and certain disorders involving the immune mechanism]Onset: 03-31-2015 Resolved: 07-59-8300OocvcrfgAdeem upper respiratory disease (7 sources)Vasomotor rhinitis; Translations: [Vasomotor rhinitis]ChronicOther upper respiratory disease (7 sources)Seasonal allergic rhinitis; Translations: [Other seasonal allergic rhinitis]Onset: 77-76-4969CzsrokaStuvs upper respiratory disease (19 sources)Allergic rhinitis due to pollen; Translations: [Allergic rhinitis due to pollen]61-99-1205JblsqcxAicjj upper respiratory disease (1 source)Chronic rhinitis; Translations: [Chronic rhinitis]31-88-1807Nczwhkj Other upper respiratory infections (7 sources)Chronic sinusitis; Translations: [Chronic sinusitis, unspecified] ChronicOther upper respiratory infections (20 sources)Acute pharyngitis; Translations: [Acute pharyngitis due to other specified organisms]Onset: 92-02-2643CwlountrDaouexjy codes; unclassified (12 sources)Insomnia; Translations: [Insomnia, unspecified]EpisodicResidual codes; unclassified (7 sources)Postmenopausal state; Translations: [Asymptomatic menopausal state] EpisodicSpondylosis; intervertebral disc disorders; other back problems (20 sources)Spondylitis; 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, lumbar region]Onset: 02-44-5608YcsklhlXbuqkatsbvr injury; contusion (1 source)Insect bite (nonvenomous) of unspecified part of head, initial encounterEpisodicSyncope (10 sources)Syncope and collapse; Translations: [Syncope and collapse]Onset: 73-80-2055PqhwgcupVkvwmvz disorders (20 sources)Cyst of thyroid; Translations: [Nontoxic single thyroid nodule] Onset: 60-58-4727UnwwqaaVmivyyvvmmxv (3 sources)CONTACT W/AND (SUSP) EXPOS COVID-19; Translations: [CONTACT W/AND (SUSP) EXPOS COVID-19]Onset: 86-39-4364Wcawhgugzgkw (7 sources)Exposure to acute respiratory syndrome coronavirus 2; Translations: [Contact with and (suspected) exposure to COVID-19]Unclassified (3 sources)Urine yeofrnx42-43-7009 Past or Other Problems Problem ClassificationProblemDateDocumented DateEpisodic/ChronicBacterial infection; unspecified site (14 sources)Methicillin resistant Staphylococcus aureus infection; Translations: [Methicillin resistant Staphylococcus aureus infection, unspecified site]Onset: 56-56-5507LozigtonFylxpbbjhq and other anemia (1 source)Anemia; Translations: [Anemia, unspecified]Onset: EpisodicEsophageal disorders (3 sources)Esophageal disordersGastritis and duodenitis (7 sources)Acute gastritis; Translations: [Acute gastritis without mention of hemorrhage]Onset: 79-25-0768CzcbknvrAzthsgak; including migraine (7 sources)Headache; Translations: [Headache, unspecified]Onset: 02-23-2015 EpisodicNausea and vomiting (7 sources)Nausea; Translations: [Nausea]Onset: 04-64-6329BzokqhbjDhqdwvksonm chest pain (18 sources)Chest pain, unspecified; Translations: [Chest pain]Onset: 07-05-2016 EpisodicOther aftercare (1 source)Other medical terminologist (current) drug therapy; Translations: [OTH TOUCHER UP CURRENT DRUG THERAPY]Onset: 72-00-5628QbpkxseuLczfx aftercare (7 sources)Surgical follow-up; Translations: [Follow-up examination, following unspecified surgery]Onset: 55-23-5197LaxtwzqhTmduq connective tissue disease (7 sources)Muscle pain; Translations: [Unspecified myalgia and myositis]Onset: 72-25-5016BciwuakkHtvbv disorders of stomach and duodenum (7 sources)Disorder of function of stomach; Translations: [Dyspepsia and other specified disorders of functionof stomach]Onset: 33-60-8718NomkcmdoOfgeg gastrointestinal disorders (7 sources)Heartburn; Translations: [Heartburn]Onset: 15-80-8436UgqnwookGbcmf gastrointestinal disorders (7 sources)Diarrhea; Translations: [Diarrhea]Onset: 46-12-6134MplafzjtXldqx gastrointestinal disorders (7 sources)Pharyngeal dysphagia; Translations: [Dysphagia, pharyngoesophageal phase]Onset: 34-62-4844CzjxlqfwHvuim gastrointestinal disorders (7 sources)Flatulence, eructation and gas pain; Translations: [Abdominal distension (gaseous)]Onset: 93-62-2485KpxnfrozZlqak lower respiratory disease (7 sources)Cough; Translations: [Cough, unspecified]Onset: 41-62-0352Pobftvhm Other nutritional; endocrine; and metabolic disorders (9 sources)Loss of appetite; Translations: [Anorexia]Onset: 14-26-3032Lvuzxlvk Other nutritional; endocrine; and metabolic disorders (7 sources)Overweight; Translations: [Overweight]Onset: 34-88-2952ZznhhydbZuhlk nutritional; endocrine; and metabolic disorders (14 sources)Body mass index 25-29 - overweight; Translations: [Body mass index 27.0-27.9, adult]Onset: 63-81-8430QwjvglrzZpsiz nutritional; endocrine; and metabolic disorders (7 sources)Abnormal weight loss; Translations: [Abnormal weight loss]Onset: 64-06-7013VadbqcrpLlpqu skin disorders (7 sources)Inflamed seborrheic keratosis; Translations: [Inflamed seborrheic keratosis]Onset: 31-14-9426BsbwuzduGfwxn skin disorders (7 sources)Sebaceous cyst; Translations: [Sebaceous cyst]Onset: 06-24-2015 EpisodicOther skin disorders (7 sources)Generalized hyperhidrosis; Translations: [Generalized hyperhidrosis] Onset: 73-22-3966EpglziqlBicnip media and related conditions (14 sources)Otitis media; Translations: [Unspecified otitis media]Onset: 03-12-5627EwttuxjfKmspjhc cyst (7 sources)Cyst of ovary; Translations: [Other and unspecified ovarian cyst] Onset: 10-14-2009 Resolved: 35-23-8581HpveoqhgMedixbxo codes; unclassified (1 source)Localized edema; Translations: [LOCALIZED EDEMA]Onset: 02-02-2022 EpisodicResidual codes; unclassified (7 sources)C/O - a back symptom; Translations: [Other symptoms referable to back]Onset: 11-84-6020SngtsdvkOrywczrp codes; unclassified (7 sources)Requires influenza virus vaccination; Translations: [Need for prophylactic vaccination and inoculation, Influenza]Onset: 25-35-4441Ceduthba Residual codes; unclassified (7 sources)Flushing; Translations: [Flushing]Onset: 67-38-7156JuefnjjbZkjy and subcutaneous tissue infections (7 sources)Carbuncle of neck; Translations: [Carbuncle of neck] Resolved: 32-15-8716NdnrlnagCvxmnuljfro; intervertebral disc disorders; other back problems (20 sources)Sciatica; Translations: [Lumbago with sciatica, left side]Onset: 195902-29-0868RffwjcwmScsezfm and strains (7 sources)Low back strain; Translations: [Strain of muscle, fascia and tendon of lower back, initial encounter]Onset: 79-39-4024OebavemnChvpkrndsrto (1 source)Vaccine counseling Z71.85Unclassified (1 source)CONTACT W/AND (SUSP) EXPOS COVID-19; Translations: [CONTACT W/AND (SUSP) EXPOS COVID-19]Onset: 86-71-4807Irsczjrayhbv (2 sources)Acute bilateral low back pain without sciatica M54.50Unclassified (4 sources)Acute bilateral low back pain without sciatica; Translations: [Acute bilateral low back pain without sciatica]Urinary tract infections (7 sources)Acute cystitis; Translations: [Acute cystitis without hematuria] Onset: 50-73-8791QmovzfeuUhtra infection (2 sources)COVID-19 Results Test NameValueInterpretationReference RangeFacilityAmbulatory Visit Summaryon 49-06-2244Tasrbveinm Visit SummaryAmbulatory Visit Summary ZARIA CORONA :1955 Visit Date:03/03/2025 [...] 40 mg Cap) omeprazole (omeprazole 40 mg Cap-DR) temazepam (temazepam 15 mg Cap) Procedures Performed [...] Enrique VÁSQUEZ MD Where: [facility] [address] [place] [address]- You Need to Schedule the Following Appointments Follow Up with Enrique VÁSQUEZ MD, URL When: Where: [facility] [address], [place] [address]- Medications What How Much When Instructions Unchanged [...] of calcium at each meal.Foods that contain 200???500 mg of calcium a serving include: ? 8 oz (237 mL) of milk, kfobcwg-zltzemzjkukm-dugzr milk, and calcium- fortifiedfruit juice. Calcium-fortified means [...] g) can of sa (more content not included)...[facility] SummaryAmbulatory Visit Summary ZARIA CORONA :1955 Visit Date:03/03/2025 [...] Urology [address], [place] [address]- Medications What How Much When Instructions Unchanged [...] of calcium at each meal.Foods that contain 200???500 mg of calcium a serving include: ? 8 oz (237 mL) of milk, dpfvzei-wqzemmpevwbs-mwlaw milk, and calcium- fortifiedfruit juice. Calcium-fortified means [...] people do not nee (more content not included)...[facility]logy Office/Clinic Noteon 53-49-6434Nqxvvka Office/Clinic NoteUrology Office/Clinic Note Chief Complaint 1 year with AMARILIS HPI Staff 1 year f/u with AMARILIS Dx: kidney stones, hypercalciuria, hypocitraturia and abnormal UA Klor-Con/EF 25 mEq BID and HCTZ 25mg qd Admits to rare leakage at night. Denies visible blood at any time. States that she voids comfortably. Denies pain of any kind. History of Present Illness Tests reviewed: UA, AMARILIS I have reviewed the previous health record [...] is asx. Pt is not having any issuesand prefers to repeat KUB next year. Recommended repeating metabolic workup since it has been a fewyears. Pt agreeable. Follow up 1 yr with [...] HCTZ 12.5 mg qd, [place] [facility] 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 U 24hr Ca 340 H. Citric acid 335 L. Taking Effer-K 25 mEq bid. Cont wo changes. Follow-up With When Contact Information MARCY GRESHAM, Enrique Layne, URL [facility] [address], [place] [address]- Additional Instructions: 1 yr with KUB and [...] diphtheria/pertussis, acel/tetanus adult 04 (more content not included)...Normal [facility] CenterComment on above:Result Comment: Electronically Signed By: Enrique VÁSQUEZ MD\.br\Date and Time Signed: 03/03/25 12:14 EDT\.br\Electronically Co-Signed By: Selma Allen\.br\Date and Time Co- Signed: 03/03/25 12:09 EDTInfluenza virus B Ag [Presence] in Upper respiratory specimen by Rapid immunoassayon 16-21-8878LWEVT Ag IA.rapid Ql (Nph)Influenza virus B Ag [Presence] in Upper respiratory specimen by Rapid immunoassay [facility] HospitalNo Panel Informationon 00-68-2502Hupyenbid Type A (Rapid)NegativeOhiohealth [place] City Methodist HospitalPOC SARS CoV-2 Antigen NegativeOhiohealth [place] City Methodist HospitalBasophils Auto (Bld) [#/Vol]on 85-85-2150Aikgrzlat (Bld) [#/Vol]Automated basophil count0.0-0.1FProMedica Bay Park HospitalBasophils/100 WBC Auto (Bld)on 09-61-5385Yyovihnei/100 WBC (Bld)Automated basophil %0.2-2.0[facility] [place] [facility] Eosinophils/100 WBC Auto (Bld)on 03-56-6415Sgefianmdcx/100 WBC (Bld)Automated eosinophil %0.9-7.0[facility] [place] [facility] HospitalErythrocyte distribution width Auto (RBC) [Ratio]on 71-74-1647Godutgjnnyj distribution width (RBC) [Ratio]Erythrocyte distribution width [Ratio] by Automated count11.0-15.0 [facility] [place] [facility] HospitalEstimated glomerular filtration rate (GFR) non- Americanon 11-23-7394CME/1.73 sq M.predicted among non-blacks MDRD (S/P/Bld) [Vol rate/Area]Estimated glomerular filtration rate (GFR) non->=60 mL/min/1.73m 2FProMedica Bay Park HospitalGlobulin Calc (S) [Mass/Vol]on 36-20-0311Jckmjvyu (S) [Mass/Vol]Serum globulin measurement by calculation (mass/volume)[facility] [place] [facility] HospitalHematocrit Auto (Bld) [Volume fraction]on 46-99-3765Hsduaaxsuo (Bld) [Volume fraction]Hematocrit [Volume Fraction] of Blood by Automated count36.0-48.0[facility] [place] [facility] HospitalHemoglobin [Mass/volume] in Bloodon 98-20-8947Wtrtmlrbuk (Bld) [Mass/Vol] Hemoglobin [Mass/volume] in Blood12.0-16.0[facility] [place] [facility] Laboratory - Chemistry and Chemistry - challengeon 41-91-0272Mggmmwv [Mass/Vol] 3.5 g/dL3.4-5.0[facility] [place] [facility] HospitalALP [Catalytic activity/Vol]167 U/ICadg44-334BuzusfdjfOhiohealth [place] [facility] Methodist HospitalALT [Catalytic activity/Vol]43 U/L 14-59[facility] [place] [facility] HospitalAmylase [Catalytic activity/Vol]44 U/L 25-115[facility] [place] [facility] HospitalAST [Catalytic activity/Vol]29 U/L15-37 [facility] [place] [facility] HospitalBilirubin [Mass/Vol]0.4 mg/dL0.2-1.0[facility] [place] [facility] HospitalCalcium [Mass/Vol]9.2 mg/dL8.5-10.1FProMedica Bay Park HospitalChloride [Moles/Vol]102 mmol/X85-750IpcokdlneOhiohealth [place] [facility] Methodist HospitalCO2 [Moles/Vol]27.8 mmol/L21.0-32.0[facility] [place] [facility] Creatinine [Mass/Vol]0.84 mg/dL0.55-1.02[facility] [place] [facility] GFR/1.73 sq M.predicted MDRD (S/P/Bld) [Vol rate/Area]mL/min/{1.73_m2}>=60 mL/min/1.73m 2FProMedica Bay Park HospitalGlucose [Mass/Vol]100 mg/eF84-325 [facility] [place] [facility] HospitalPotassium [Moles/Vol]3.5 mmol/L3.5-5.1FProMedica Bay Park HospitalProtein [Mass/Vol]7.7 g/dL6.4-8.2FMagruder Memorial Hospitalodium [Moles/Vol]139 mmol/P273-277IicgbrqcwOhiohealth [place] [facility] Methodist HospitalUrea nitrogen [Mass/Vol]14.0 mg/dL7.0-18.0[facility] [place] [facility] HospitalUrea nitrogen/Creatinine [Mass ratio]16.7 mg/mgOhiohealth [place] [facility] Methodist HospitalLaboratory - Hematology and Cell countson 95-81-8621Flmhoaco granulocytes/100 WBC (Bld)0.3 %0.0-0.5FProMedica Bay Park Hospital Leukocytes [#/volume] corrected for nucleated erythrocytes in Blood by Automated counon 42-50-1351FVU corrected for nucl RBC Auto (Bld) [#/Vol]Leukocytes [#/volume] corrected for nucleated erythrocytes in Blood by Automated coun 4.0-11.0[facility] [place] [facility] HospitalLymphocytes Auto (Bld) [#/Vol]on 74-96-8461Fvzcihrdexf (Bld) [#/Vol]Lymphocytes [#/volume] in Blood by Automated count1.2-3.8[facility] [place] [facility] HospitalLymphocytes/100 WBC Auto (Bld)on 46-43-7013Vkhifqgwaad/100 WBC (Bld)Lymphocytes/100 leukocytes in Blood by Automated count20.5-60.0Cleveland ClinicH Auto (RBC) [Entitic mass]on 82-99-2627TTF (RBC) [Entitic mass]MCH [Entitic mass] by Automated count 26.7-34.0[facility] [place] [facility] HospitalMCHC Auto (RBC) [Mass/Vol]on 20-86-8090JASN (RBC) [Mass/Vol]MCHC [Mass/volume] by Automated count29.9-35.2 [facility] [place] [facility] HospitalMCV Auto (RBC) [Entitic vol]on 59-25-6396ZRA (RBC) [Entitic vol]MCV [Entitic volume] by Automated count81.0-99.0[facility] [place] [facility] HospitalMonocytes Auto (Bld) [#/Vol]on 18-23-6231Gogvxvvjn (Bld) [#/Vol]Automated blood monocyte count0.3-0.8[facility] [place] [facility] Monocytes/100 WBC Auto (Bld)on 57-84-8705Hjijlaghw/100 WBC (Bld)Automated monocyte %1.7-12.0[facility] [place] [facility] HospitalNeutrophils Auto (Bld) [#/Vol]on 25-06-2909Wirvthbhimb (Bld) [#/Vol]Neutrophils [#/volume] in Blood by Automated countHigh1.4-6.5FProMedica Bay Park HospitalNeutrophils/100 WBC Auto (Bld)on 00-24-7169Yxvfoamveat/100 WBC (Bld)Automated neutrophil %43.0-75.0 [facility] [place] [facility] HospitalNo Panel Informationon 61-59-6204Bgeosftwucw # (Auto)0.2 10 3/uL0.0-0.7FProMedica Bay Park HospitalImmature Granulocyte # (Auto)0.03 10 3/uL0.00-0.03[facility] [place] [facility] HospitalPlatelet mean volume Auto (Bld) [Entitic vol]on 87-43-4859Vnvifuxh mean volume (Bld) [Entitic vol] Platelet mean volume [Entitic volume] in Blood by Automated countLow9.5-13.5 [facility] [place] [facility] HospitalPlatelets Auto (Bld) [#/Vol]on 09-24-2024 Platelets (Bld) [#/Vol]Platelets [#/volume] in Blood by Automated wenbf902-687 [facility] [place] [facility] HospitalRBC Auto (Bld) [#/Vol]on 10-24-4377OTA (Bld) [#/Vol]Erythrocytes [#/volume] in Blood by Automated count4.20-5.40Martin Memorial Hospitalerum or plasma albumin/globulin mass ratioon 09-24-2024 Albumin/Globulin [Mass ratio]Serum or plasma albumin/globulin mass ratio [facility] Memorial Hospitalerum or plasma anion gap determinationon 12-15-6045Aazcz gap [Moles/Vol]Serum or plasma anion gap determinationOhiohealth [place] City Methodist HospitalBasophils Auto (Bld) [#/Vol]on 37-20-5563Blyhxglvr (Bld) [#/Vol]0.1 10 3/uL0.0-0.1FProMedica Bay Park HospitalBasophils/100 WBC Auto (Bld)on 31-98-7718Cxiochohz/100 WBC (Bld)0.5 %0.2-2.0[facility] [place] [facility] HospitalEosinophils/100 WBC Auto (Bld)on 22-82-6044Hmusjnogvmg/100 WBC (Bld)3.0 % 0.9-7.0[facility] [place] [facility] HospitalErythrocyte distribution width Auto (RBC) [Ratio]on 98-36-0546Bolzoyylebi distribution width (RBC) [Ratio]15.0 % 11.0-15.0[facility] [place] [facility] HospitalGlucose mean value [Mass/volume] in Blood Estimated from glycated hemoglobinon 74-48-9896Svvjwch glucose Estimated from glycated hemoglobin (Bld) [Mass/Vol]117 mg/dLOhiohealth [place] City Methodist HospitalHematocrit Auto (Bld) [Volume fraction]on 05-66-9753Ifekujwjys (Bld) [Volume fraction]41.1 %36.0-48.0[facility] [place] [facility] HospitalHemoglobin [Mass/volume] in Bloodon 24-59-6855Ovykehgibs (Bld) [Mass/Vol]13.2 g/dL12.0-16.0 [facility] [place] [facility] HospitalLon 83-17-1788XHxedjymv: [id number] Received: 05/06/24 Status: MARY Req Num: [id number] Spec Type: Impression Subm Dr: Segun Kingsley DO Tissues: PATHPER Procedures: PATHREVIEW Age/ Patient Sex Location Account Attending Physician Zaria Corona 68/F LABELL [id number] Segun Kingsley DO SPEC NUM: [id number] RECD: 05/06/24 STATUS: MARY ELIO NUM: [id number] KYRIE: 05/06/[address]: Segun Kingsley DO ENTERED: 05/06/[address]: Marj,Lab SPEC TYPE: Impression DEPT: GARRETT Myles ENTERED BY: [id number] RECV BY: [id number] ORDERED: PATHREVIEW ORDERED: PATHREVIEW Pathologist Review Abnormal [...] inflammation, or underlying infection requiring clinical correlations [facility]:[id number] Specimen: [id number] Received: 05/06/24-1320 Status: MARY Rodgers Num: [id number] Spec Type: Impression Subm Dr: Segun Kingsley DO Tissues: PATHPER Procedures: PATHREVIEW Patient: Zaria Corona [id number] (Continued) Signed (signature on file) Qasim Feng MD 05/07/[address] [place] [address] Physician GroupLaboratory - Hematology and Cell countson 55-08-6725WyA0n (Bld) [Mass fraction]5.7 %4.5-6.2FProMedica Bay Park HospitalComment on above:ADA RECOMMENDED LIMIT 4.0 - 6.0ADA THERAPEUTIC TARGET < 7.0ACTION SUGGESTED> 7.0Immature granulocytes/100 WBC (Bld)0.7 %High0.0-0.5 [facility] HospitalLeukocytes [#/volume] corrected for nucleated erythrocytes in Blood by Automated counon 29-68-3538WBB corrected for nucl RBC Auto (Bld) [#/Vol]13.2 10 3/uLHigh4.0-11.0[facility] Lymphocytes Auto (Bld) [#/Vol]on 62-57-4340Zqhygplgvre (Bld) [#/Vol]2.7 10 3/uL 1.2-3.8[facility] HospitalLymphocytes/100 WBC Auto (Bld)on 53-33-8325Ksmxstjsdgy/100 WBC (Bld)20.6 %20.5-60.0[facility] ClinicH Auto (RBC) [Entitic mass]on 88-99-9498UQK (RBC) [Entitic mass]27.9 pg 26.7-34.0Cleveland ClinicHC Auto (RBC) [Mass/Vol]on 34-68-0051AJUN (RBC) [Mass/Vol]32.1 g/dL29.9-35.2FWilson HealthV Auto (RBC) [Entitic vol]on 68-82-0819UHH (RBC) [Entitic vol]86.9 fL 81.0-99.0[facility] HospitalMonocytes Auto (Bld) [#/Vol]on 99-69-6812Txobxzidx (Bld) [#/Vol]0.7 10 3/uL0.3-0.8[facility] [place] [facility] HospitalMonocytes/100 WBC Auto (Bld)on 04-26-9682Cnljqqamq/100 WBC (Bld)5.0 % 1.7-12.0[facility] [place] [facility] HospitalNeutrophils Auto (Bld) [#/Vol]on 75-34-7769Emssqahsupn (Bld) [#/Vol]9.3 10 3/uLHigh1.4-6.5FProMedica Bay Park HospitalNeutrophils/100 WBC Auto (Bld)on 18-91-5764Sfarnrhfeup/100 WBC (Bld)70.2 %43.0-75.0[facility] HospitalNo Panel Informationon 07-89-4708Iwl Manual DifferentialSee commentOhiohealth [facility] Hospital Comment on above:SEE SCANNED REPORTEosinophils # (Auto)0.4 10 3/uL0.0-0.7 [facility] HospitalImmature Granulocyte # (Auto)0.09 10 3/uLHigh 0.00-0.03[facility] [place] [facility] HospitalPlatelet mean volume Auto (Bld) [Entitic vol]on 13-17-6491Sxwmmgtz mean volume (Bld) [Entitic vol]8.5 fLLow 9.5-13.5FProMedica Bay Park HospitalPlatelets Auto (Bld) [#/Vol]on 40-72-6527Hodtyxpvt (Bld) [#/Vol]419 10 3/cX421-206QerqvleorOhiohealth [place] City Methodist HospitalRBC Auto (Bld) [#/Vol]on 86-53-4100WVE (Bld) [#/Vol]4.73 10 6/uL4.20-5.40 [facility] [place] [facility] HospitalBasophils Auto (Bld) [#/Vol]on 05-01-2024 Basophils (Bld) [#/Vol]0.1 10 3/uL0.0-0.1FProMedica Bay Park Hospital Basophils/100 WBC Auto (Bld)on 09-67-7850Xmivbpzhb/100 WBC (Bld)0.3 %0.2-2.0 [facility] HospitalCholesterol in LDL Calc [Mass/Vol]on 05-01-2024 Cholesterol in LDL [Mass/Vol]56.0 mg/dLOhiohealth [facility] City Methodist HospitalComment on above:<100 mg/dl RDBBGYL473-406 mg/dl NEAR OR ABOVE YSKKGHJ709-850 mg/dl BORDERLINE RXWC318-940 mg/dl HIGH>190 mg/dl VERY HIGHCholesterol in VLDL Calc [Mass/Vol]on 76-11-7461Xdcdgypkrlz in VLDL [Mass/Vol]21.0 mg/dLOhiohealth [facility] City Methodist HospitalEosinophils/100 WBC Auto (Bld)on 05-01-2024 Eosinophils/100 WBC (Bld)0.6 %Low0.9-7.0[facility] Erythrocyte distribution width Auto (RBC) [Ratio]on 56-56-4673Jxaseoylshy distribution width (RBC) [Ratio]15.3 %High11.0-15.0[facility] HospitalEstimated glomerular filtration rate (GFR) non- Americanon 14-14-5928QJR/1.73 sq M.predicted among non-blacks MDRD (S/P/Bld) [Vol rate/Area]mL/min/{1.73_m2}>=60[facility] HospitalGlobulin Calc (S) [Mass/Vol]on 22-77-8688Icravtju (S) [Mass/Vol]4.7 g/dLOhiohealth [facility] City Methodist HospitalHematocrit Auto (Bld) [Volume fraction]on 73-71-6445Uelalaaedk (Bld) [Volume fraction]40.0 %36.0-48.0[facility] HospitalHemoglobin [Mass/volume] in Bloodon 90-31-3009Ydorrxbjia (Bld) [Mass/Vol]12.9 g/dL12.0-16.0 [facility] HospitalLaboratory - Chemistry and Chemistry - challengeon 38-21-3117Goyzxkg [Mass/Vol]3.3 g/dLLow3.4-5.0[facility] HospitalALP [Catalytic activity/Vol]157 U/AGkqo08-652SrytlelxxOhiohealth [facility] Methodist HospitalALT [Catalytic activity/Vol]22 U/J07-46BfhavuhqjOhiohealth [facility] Methodist HospitalAST [Catalytic activity/Vol]17 U/F68-14ErqvstjvvOhiohealth [facility] Hospital Bilirubin [Mass/Vol]0.6 mg/dL0.2-1.0[facility] HospitalCalcium [Mass/Vol]9.1 mg/dL8.5-10.1FProMedica Bay Park HospitalChloride [Moles/Vol] 99 mmol/B77-846BwzzgmrzdOhiohealth [facility] Methodist HospitalCholesterol [Mass/Vol]155 mg/dL <=200[facility] HospitalCholesterol in HDL [Mass/Vol]78 mg/dLHigh 40-60[facility] HospitalComment on above:> or =60 mg/dl - LOW CARDIOVASCULAR RISK<40 mg/dl - HIGH CARDIOVASCULAR RISKCO2 [Moles/Vol]27.0 mmol/L21.0-32.0[facility] HospitalCreatinine [Mass/Vol]0.70 mg/dL 0.55-1.02[facility] HospitalGFR/1.73 sq M.predicted MDRD (S/P/Bld) [Vol rate/Area]mL/min/{1.73_m2}>=60[facility] [place] [facility] HospitalGlucose [Mass/Vol]124 mg/bBView86-476SqgxrpgpxOhiohealth [place] [facility] Methodist HospitalPotassium [Moles/Vol]3.3 mmol/LLow3.5-5.1FProMedica Bay Park HospitalProtein [Mass/Vol]8.0 g/dL6.4-8.2FMagruder Memorial Hospitalodium [Moles/Vol]136 mmol/J020-350SlnlmktboOhiohealth [facility] Methodist HospitalTriglyceride [Mass/Vol]105 mg/dL <=150[facility] [place] [facility] HospitalUrea nitrogen [Mass/Vol]15.0 mg/dL7.0-18.0 [facility] HospitalUrea nitrogen/Creatinine [Mass ratio]21.4 mg/mg [facility] HospitalLaboratory - Hematology and Cell countson 80-83-0828Dklyirbr granulocytes/100 WBC (Bld)0.5 %0.0-0.5FProMedica Bay Park HospitalLeukocytes [#/volume] corrected for nucleated erythrocytes in Blood by Automated counon 35-17-1401QLH corrected for nucl RBC Auto (Bld) [#/Vol]19.0 10 3/uLHigh4.0-11.0[facility] HospitalLymphocytes Auto (Bld) [#/Vol]on 15-97-3837Mvyrdzfovrg (Bld) [#/Vol]2.0 10 3/uL1.2-3.8[facility] [place] [facility] HospitalLymphocytes/100 WBC Auto (Bld)on 05-01-2024 Lymphocytes/100 WBC (Bld)10.3 %Low20.5-60.0[facility] HospitalMCH Auto (RBC) [Entitic mass]on 49-55-6706TGX (RBC) [Entitic mass]27.6 pg26.7-34.0 [facility] HospitalMCHC Auto (RBC) [Mass/Vol]on 96-81-2473JWIJ (RBC) [Mass/Vol]32.3 g/dL29.9-35.2FProMedica Bay Park HospitalMCV Auto (RBC) [Entitic vol]on 86-36-4709FYH (RBC) [Entitic vol]85.7 fL81.0-99.0[facility] HospitalMonocytes Auto (Bld) [#/Vol]on 31-03-4976Uhbtrlzgq (Bld) [#/Vol]1.2 10 3/uLHigh0.3-0.8[facility] HospitalMonocytes/100 WBC Auto (Bld)on 70-13-8220Tardaacwb/100 WBC (Bld)6.2 %1.7-12.0[facility] HospitalNeutrophils Auto (Bld) [#/Vol]on 95-29-6740Pqxdyizhnak (Bld) [#/Vol]15.6 10 3/uLHigh1.4-6.5FProMedica Bay Park HospitalNeutrophils/100 WBC Auto (Bld)on 96-91-9518Qjrbaqqkszj/100 WBC (Bld)82.1 %High43.0-75.0[facility] HospitalNo Panel Informationon 70-37-9501Ybyvnlkgoyc # (Auto)0.1 10 3/uL0.0-0.7FProMedica Bay Park HospitalImmature Granulocyte # (Auto) 0.09 10 3/uLHigh0.00-0.03[facility] HospitalPlatelet mean volume Auto (Bld) [Entitic vol]on 62-56-6848Hmvwnhuv mean volume (Bld) [Entitic vol]9.1 fLLow9.5-13.5FProMedica Bay Park HospitalPlatelets Auto (Bld) [#/Vol]on 37-53-3379Fzykkpmna (Bld) [#/Vol]346 10 3/tI301-946KifkhknmpOhiohealth [facility] City Methodist HospitalRBC Auto (Bld) [#/Vol]on 56-64-2956YKB (Bld) [#/Vol]4.67 10 6/uL4.20-5.40 [facility] Hospitalerum or plasma albumin/globulin mass ratioon 83-48-0483Bedfzgd/Globulin [Mass ratio]0.7 {ratio}Martin Memorial Hospitalerum or plasma anion gap determinationon 74-75-6158Mjcuo gap [Moles/Vol] 13.3 mmol/LFMagruder Memorial Hospitalerum or plasma total cholesterol/high density lipoprotein (HDL) cholesterol mass franklin 05-01-2024 Cholesterol.total/Cholesterol in HDL [Mass ratio]2.0 {ratio}[facility] HospitalComment on above:3.3 - 4.4 LOW RISK4.4 - 7.1 AVERAGE RISK7.1 - 11.0 MODERATE RISK>11.0 HIGH RISKLaboratory - Chemistry and Chemistry - challengeon 68-24-3178Mxkhdesc [Moles/Vol]102 mmol/Q87-494AnprrgxthOhiohealth [facility] Methodist HospitalCO2 [Moles/Vol]28.0 mmol/L21.0-32.0[facility] HospitalPotassium [Moles/Vol]4.0 mmol/L3.5-5.1FProMedica Bay Park Hospital Sodium [Moles/Vol]138 mmol/I872-010JgrdlkoyrMartin Memorial Hospitalerum or plasma anion gap determinationon 37-30-2633Chiqx gap [Moles/Vol]12.0 mmol/L [facility] HospitalUS Thyroid glandon 83-89-0604[place], [place] [address] Ultrasound Report Signed Patient: ELBA CORONA MR#: [id number] : 1955 Acct:[id number] Age/Sex: 68 / F ADM Date: 09/05/23 Loc: US Attending Dr: Anum Dumont M.D. Ordering Physician: Anum Dumont M.D. Date of Service: 09/05/23 Procedure(s): US thyroid Accession Number(s): [id number] cc: Segun Kingsley D.O.; Anum Dumont M.D. [address] [address] Patient Name: ELBA CORONA MRN: [id number] date: 1955 Sex: F Assigned Patient Location: US Current Patient Location: US Accession/Order Number: [id number] Exam Date: 09/05/2023 12:15 Report Date: 09/05/2023 13:38 At the request of: ANUM DUMONT Procedure: US thyroid EXAM: US thyroid HISTORY: [...] 12 months recommended. Electronically authenticated by: NEHEMIAS GUZMAN Date: 09/05/2023 13:38 Dictated By: Nehemias Guzman M.D. Signed By: 09/05/23 1341 DD/ 1338 TD/TT: Purse Seining Hand:IAMHRadiology, Radiologist, - 09/05/[address] [address] Ultrasound Report Signed Patient: ELBA CORONA MR#: [id number] : 1955 Acct:[id number] Age/Sex: 68 / F ADM Date: 09/05/23 Loc: US Attending Dr: Anum Dumont M.D. Ordering Physician: Anum Dumont M.D. Date of Service: 09/05/23 Procedure(s): US thyroid Accession Number(s): [id number] cc: Segun Kingsley D.O.; Anum Dumont M.D. The [address] [address] Patient Name: ELBA CORONA MRN: [id number] date: 1955 Sex: F Assigned Patient Location: US Current Patient Location: US Accession/Order Number: [id number] Exam Date: 09/05/2023 12:15 Report Date: 09/05/2023 13:38 At the request of: ANUM MARYLENORE Procedure: US thyroid EXAM: US thyroid HISTORY: [...] 12 months recommended. Electronically authenticated by: NEHEMIAS GUZMAN Date: 09/05/2023 13:38 Dictated By: Nehemias Guzman M.D. Signed By: 09/05/23 1341 DD/ 1338 TD/TT: Purse Seining Hand: MELANI MensahRadiology Study observation (narrative)MELANI Hidalgo Thyroid glandOrdered By: Radiologist Radiology on 81-14-8325[facility] Work Phone: XR KUB 1 VIEWon 04-96-1494UT KUB 1 VIEWEXAMINATION: XR KUB 1 VIEW HISTORY: Kidney stone COMPARISON: No relevant comparison available. FINDINGS: KIDNEY/URETER - RIGHT: punctate nephrolithiasis. KIDNEY/URETER - LEFT: punctate nephrolithiasis PELVIS: No visible ureteral calcifications. Any visible calcifications favor phleboliths. BOWEL: No abnormal dilation or deviation. BONES: No acute abnormality. OTHER: Negative. No abnormal gaseous collections. IMPRESSION: Bilateral punctate nephrolithiasis Electronically authenticated by: EVERETT ERNANDEZ Date: 2023-01-20 11:11[facility] HospitalELECTROLYTESon 02-96-4776Dlmxg gap [Moles/Vol]12.4 mmol/LNormal The White HospitalComment on above:Performed By: #### PTHINT #### [facility] [address] [place] [address] Dr. Alejandrina FengChloride [Moles/Vol]102 mmol/XMcyygf89-872HpvSelect Medical Specialty Hospital [facility] Comment on above:Performed By: #### PTHINT #### [facility] [address] [place] [address] Dr. Alejandrina FengCO2 [Moles/Vol]28.5 mmol/JMhkuhp56.0-32.0[facility] Comment on above:Performed By: #### PTHINT #### [facility] [address] [place] [address] Dr. Alejandrina FengPotassium [Moles/Vol]3.9 mmol/LNormal3.5-5.1[facility] Comment on above:Performed By: #### PTHINT #### [facility] [address] [place] [address] Dr. Alejandrina FengSodium [Moles/Vol]139 mmol/QAmvihk827-121GcxSelect Medical Specialty Hospital - [facility] Comment on above:Performed By: #### PTHINT #### [facility] [address] [place] [address] Dr. Alejandrina Christopher THYROIDon 94-71-0235PN THYROIDEXAMINATION: US THYROID HISTORY: Non-toxic uninodular goiter COMPARISON: [...] thyroid stable. TR 3 nodule TI-RADS: The [employer] TI-RADS committee's white paper recommendations for thyroid lesions classified as TR3 (mildly suspicious) are listed below: > 1.5 cm. Follow-up ultrasound in 1, 3, and 5 years. > 2.5 cm. FNA. J. Am Kyrie Radiol 2017;14:587-595. Electronically authenticated by: EVERETT ERNANDEZ Date: 2022-08-29 07:[facility] HospitalXR KUB 1 VIEWon 20-62-6813CP KUB 1 VIEWEXAMINATION: XR KUB 1 VIEW HISTORY: Kidney stone [...] Suspect right nephrolithiasis. Electronically authenticated by: JACKSON MEJIA Date: 2022-07-14 06:26[facility] HospitalELECTROLYTESon 45-02-5269Wvwfr gap [Moles/Vol]9.0 mmol/LNormal The [facility] HospitalComment on above:Performed By: #### ELEC #### [facility] [address] [address] [address] Alejandrina FengChloride [Moles/Vol]101 mmol/OOxcfln00-494UbgSelect Medical Specialty Hospital [facility] Comment on above:Performed By: #### ELEC #### [facility] [address] [address] [address] Alejandrina FengCO2 [Moles/Vol]27.5 mmol/FWcchsc82.0-32.0[facility] Comment on above:Performed By: #### ELEC #### [facility] [address] [place], [place] [address] Dr. Alejandrina FengPotassium [Moles/Vol]3.5 mmol/LNormal3.5-5.1[facility] Comment on above:Performed By: #### ELEC #### [facility] [address] [place], [place] [address] Dr. Alejandrina FengSodium [Moles/Vol]134 mmol/LCritically rxr552-197Xqh [facility] HospitalComment on above:Performed By: #### ELEC #### [facility] [address] [address] [address] Alejandrina FengMG MAMM SCREEN 3D TUSHAR CADon [id number] MAMM SCREEN 3D TUSHAR CAD Patient: ZARIA CORONA Exam Date: 07/06/2022 : 1955 Gender:F Ordering : DR SEGUN KINGSLEY D.O. Admission #: [id number] Family : Order #: [id number] CLICK HERE TO VIEW EXAM RADIOLOGY REPORT [...] by: Everett Ernandez MD on 07/06/2022 at 10:00NoMad[facility] AUTO DIFFon [id number] #0.1 103/ulNormal0.0-0.1The [place] HospitalComment on above:Performed By: #### CBC #### [facility] [address] [place] [address] Dr. Alejandrina FengBasophils/100 WBC (Bld)0.4 %Normal0.2-2.0[facility] Comment on above:Performed By: #### CBC #### [facility] [address] [place] [address] Dr. Alejandrina Moise #0.1 103/ulNormal0.0-0.7The White HospitalComment on above: Performed By: #### CBC #### [facility] [address] [place] [address] Dr. Alejandrina Camarilloosinophils/100 WBC (Bld)0.6 %Critically low0.9-7.0The White HospitalComment on above:Performed By: #### CBC #### [facility] [address] [place] [address] Dr. Alejandrina Camarillorythrocyte distribution width (RBC) [Ratio]14.6 %Xjnqke11.0-15.0 The White HospitalComment on above:Performed By: #### CBC #### [facility] [address] [place] [address] Dr. Alejandrina FengHematocrit (Bld) [Volume fraction]43.6 %Jyktli86.0-48.0The White HospitalComment on above:Performed By: #### CBC #### [facility] [address] [place] [address] Dr. Alejandrina FengHemoglobin (Bld) [Mass/Vol]14.1 g/yNDrvdgk64.0-16.0The White HospitalComment on above:Performed By: #### CBC #### [facility] [address] [place] [address] Dr. Alejandrina Washburn #0.07 10e3/ulCritically high0.00-0.03[facility] Comment on above:Performed By: #### CBC #### [facility] [address] [place] [address] Dr. Alejandrina Washburn %0.6 %Critically high0.0-0.5The [facility] HospitalComment on above:Performed By: #### CBC #### [facility] [address] [place] [address] Dr. Alejandrina Moore #1.6 103/ulNormal1.2-3.8The [facility] HospitalComment on above:Performed By: #### CBC #### [facility] [address] [place] [address] Dr. Alejandrina Freemanhocytes/100 WBC (Bld)12.4 %Critically low20.5-60.0The White HospitalComment on above:Performed By: #### CBC #### [facility] [address] [place] [address] Dr. Alejandrina Meyer DIFF REQNONormalThe White HospitalComment on above: Performed By: #### CBC #### [facility] [address] [place] [address] Dr. Alejandrina Robert (RBC) [Entitic mass]27.9 sfJfovhp31.7-34.0The White HospitalComment on above:Performed By: #### CBC #### [facility] [address] [place] [address] Dr. Alejandrina Lion (RBC) [Mass/Vol]32.3 g/oSIossvt32.9-35.2The [facility] HospitalComment on above:Performed By: #### CBC #### [facility] [address] [place] [address] Dr. Alejandrina Bianchi (RBC) [Entitic vol]86.3 mLDakhsg63.0-99.0The [facility] HospitalComment on above:Performed By: #### CBC #### [facility] [address] [place] [address] Dr. Alejandrina Reid #0.9 103/ulCritically high0.3-0.8[facility] Comment on above:Performed By: #### CBC #### [facility] [address] [place] [address] Dr. Alejandrina Deviocytes/100 WBC (Bld)7.2 %Normal1.7-12.0[facility] Comment on above:Performed By: #### CBC #### [facility] [address] [place] [address] Dr. Alejandrina Jones #10.0 103/ulCritically high1.4-6.5[facility] Comment on above:Performed By: #### CBC #### [facility] [address] [place] [address] Dr. Alejandrina Slaughterutrophils/100 WBC (Bld)78.8 %Critically high43.0-75.0The [facility] HospitalComment on above:Performed By: #### CBC #### [facility] [address] [place] [address] Dr. Alejandrina Pettylet mean volume (Bld) [Entitic vol]8.8 fLCritically low 9.5-13.5The White HospitalComment on above:Performed By: #### CBC #### [facility] [address] [place] [address] Dr. Alejandrina ShaneT404 103/ttTglmdg681-577Aba White HospitalComment on above: Performed By: #### CBC #### [facility] [address] [place] [address] Dr. Alejandrina FengRBC5.05 106/ulNormal4.20-5.40The [facility] HospitalComment on above:Performed By: #### CBC #### [facility] [address] [place] [address] Dr. Alejandrina FengWBC12.7 103/ulCritically high4.0-11.0The [facility] HospitalComment on above:Performed By: #### CBC #### [facility] [address] [place] [address] Dr. Alejandrina Mccauley 14(COMP METB)on 97-41-5266Csigebf [Mass/Vol]3.6 g/dLNormal 3.4-5.0The White HospitalComment on above:Performed By: #### CMP, TSH #### [facility] [address] [address] [address] Alejandrina FengAlbumin/Globulin [Mass ratio]0.8 {ratio}NormalThe White HospitalComment on above:Performed By: #### CMP, TSH #### [facility] [address] [address] [address] Alejandrina MoralesP [Catalytic activity/Vol]182 U/LCritically ngfo18-098Zew White HospitalComment on above:Performed By: #### CMP, TSH #### [facility] [address] [address] [address] Alejandrina MoralesT [Catalytic activity/Vol]29 U/AQglhse44-57Pze White HospitalComment on above:Performed By: #### CMP, TSH #### [facility] [address] [place] [address] Dr. Alejandrina FengAnion gap [Moles/Vol]13.4 mmol/LNormalThe [facility] Comment on above:Performed By: #### CMP, TSH #### [facility] [address] [place] [address] Dr. Alejandrina FengAST [Catalytic activity/Vol]22 U/XAlxblk90-24Efv White HospitalComment on above:Performed By: #### CMP, TSH #### [facility] [address] [place] [address] Dr. Alejandrina FengBilirubin [Mass/Vol]0.5 mg/dLNormal0.2-1.0[facility] Comment on above:Performed By: #### CMP, TSH #### [facility] [address] [place] [address] Dr. Alejandrina FengCalcium [Mass/Vol]9.3 mg/dLNormal8.5-10.1[facility] Comment on above:Performed By: #### CMP, TSH #### [facility] [address] [place] [address] Dr. Alejandrina FengChloride [Moles/Vol]102 mmol/IJmrmec63-921Bdk [facility] Comment on above:Performed By: #### CMP, TSH #### [facility] [address] [address] [address] Alejandrina FengCO2 [Moles/Vol]26.2 mmol/NWmmxjg50.0-32.0[facility] Comment on above:Performed By: #### CMP, TSH #### [facility] [address] [address] [address] Alejandrina FengCreatinine [Mass/Vol]0.94 mg/dLNormal0.55-1.02The White HospitalComment on above:Performed By: #### CMP, TSH #### [facility] [address] [address] [address] Tinoco ChangEGFR-AF NORWEGIAN>60Normal>=60The [facility] HospitalComment on above:Performed By: #### CMP, TSH #### [facility] [address] [address] [address] Alejandrina CamarilloGFR-NON AF YKUYXTXM23 mL/min/1.57p1Kgloueolte low>=60The [facility] HospitalComment on above:Performed By: #### CMP, TSH #### [facility] [address] [address] [address] Alejandrina FengGlobulin (S) [Mass/Vol]4.3 g/dLNormalThe White HospitalComment on above:Performed By: #### CMP, TSH #### [facility] [address] [address] [address] Alejandrina FengGlucose [Mass/Vol]101 mg/pHRyigum53-000Kdt [facility] Comment on above:Performed By: #### CMP, TSH #### [facility] [address] [address] [address] Alejandrina FengPotassium [Moles/Vol]4.6 mmol/LNormal3.5-5.1[facility] Comment on above:Performed By: #### CMP, TSH #### [facility] [address] [address] [address] Alejandrina FengProtein [Mass/Vol]7.9 g/dLNormal6.4-8.2[facility] Comment on above:Performed By: #### CMP, TSH #### [facility] [address] [address] [address] Alejandrina FengSodium [Moles/Vol]137 mmol/LYsjmrh085-592Uko [facility] Comment on above:Performed By: #### CMP, TSH #### [facility] [address] [place] [address] Dr. Alejandrina James nitrogen [Mass/Vol]19.0 mg/dLCritically high7.0-18.0The [facility] HospitalComment on above:Performed By: #### CMP, TSH #### [facility] [address] [place] [address] Dr. Alejandrina James nitrogen/Creatinine [Mass ratio]20.2 mg/mgNormalThe White HospitalComment on above:Performed By: #### CMP, TSH #### [facility] [address] [place] [address] Dr. Alejandrina Montelongo 19-61-4840BEZ0.854 uIU/mLNormal0.358-3.740The [facility] HospitalComment on above:Performed By: #### CMP, TSH #### [facility] [address] [place] [address] Dr. Alejandrina Rodríguez-19 PCR ([facility])on 42-73-4558LSBI-CoV-2 (COVID-19) RNA JACKSON+probe Ql (Unsp spec)Not detectedNormalNOT DETECTEDThe [facility] Comment on above:Result Comment: When diagnostic testing is negative, the [...] for this test is supported by the [place] of Health and Human Service's declaration that circumstances exist to justify the emergency use of in vitro diagnostics for the detection and/or diagnosis of the virus that causes COVID-19. This EUA will remain in effect for the duration of the COVID-19 declaration justifying emergency of IVDs, unless it is terminated or revoked by the FDA (after which the test may no longer be used).Performed By: #### CBC #### [facility] [address] [place] [address] Dr. Alejandrina CamarilloLECTROLYTESon 55-09-1270Zaavn gap [Moles/Vol]14.8 mmol/LNormal The [facility] HospitalComment on above:Performed By: #### ELEC #### [facility] [address] [place] [address] Dr. Alejandrina FengChloride [Moles/Vol]103 mmol/DYgiopd72-563Fhz [facility] Comment on above:Performed By: #### ELEC #### [facility] [address] [place] [address] Dr. Alejandrina FengCO2 [Moles/Vol]25.2 mmol/LWookhn77.0-32.0[facility] Comment on above:Performed By: #### ELEC #### [facility] [address] [place] [address] Dr. Alejandrina FengPotassium [Moles/Vol]4.0 mmol/LNormal3.5-5.1[facility] Comment on above:Performed By: #### ELEC #### [facility] [address] [place] [address] Dr. Alejandrina FengSodium [Moles/Vol]139 mmol/MBouzem459-704Itz [facility] Comment on above:Performed By: #### ELEC #### [facility] [address] [place] [address] Dr. Alejandrina FengCovid-19 PCR ([facility])on 71-47-1259TZEV-CoV-2 (COVID-19) RNA JACKSON+probe Ql (Unsp spec)Not detectedNormalNOT DETECTEDThe [facility] Comment on above:Result Comment: This test is not yet approved or cleared by the [place] FDA. When there are no FDA-approved or cleared tests available, and other criteria are met, FDA can make tests available under an emergency access mechanism called an Emergency Use Authorization (EUA). The EUA for this test is supported by the [place] of Health and Human Service's (HHS's) declaration that circumstances exist to justify the emergency use of in vitro diagnostics for the detection and/or diagnosis of the virus that causes COVID- 19. This EUA will remain in effect (meaning [...] of clinical signs and symptoms consistent with SARS-CoV-2.Performed By: #### CVDTBH #### [facility] [address] [place] [address] Dr. Alejandrina Dooley 70-58-6417Yrmotbygdfj peptide B (Bld) [Mass/Vol]60.0 pg/mL Normal<=900.0The White HospitalComment on above:Performed By: #### PTHINT #### [facility] [address] [place] [address] Dr. Alejandrina Bahena AUTO DIFFon 06-77-1556FKYN #0.1 103/ulNormal0.0-0.1[facility] NorthComment on above:Performed By: #### CBC #### [facility] [address] [place] [address] Dr. Alejandrina FengBasophils/100 WBC (Bld)0.4 %Normal0.2-2.0[facility] Comment on above:Performed By: #### CBC #### [facility] [address] [place] [address] Dr. Alejandrina Moise #0.2 103/ulNormal0.0-0.7The [facility] HospitalComment on above: Performed By: #### CBC #### [facility] [address] [place] [address] Dr. Alejandrina Camarilloosinophils/100 WBC (Bld)1.4 %Normal0.9-7.0[facility] Comment on above:Performed By: #### CBC #### [facility] [address] [address] [address] Alejandrina Camarillorythrocyte distribution width (RBC) [Ratio]13.3 %Ujsxyr93.0-15.0 The [facility] Centerment on above:Performed By: #### CBC #### [facility] [address] [place] [address] Dr. Alejandrina FengHematocrit (Bld) [Volume fraction]45.1 %Lxufso16.0-48.0The [facility] HospitalComment on above:Performed By: #### CBC #### [facility] [address] [place] [address] Dr. Alejandrina FengHemoglobin (Bld) [Mass/Vol]14.4 g/tTHbdzjt63.0-16.0The [facility] HospitalComment on above:Performed By: #### CBC #### [facility] [address] [place] [address] Dr. Alejandrina Washburn #0.05 10e3/ulCritically high0.00-0.03[facility] Comment on above:Performed By: #### CBC #### [facility] [address] [place] [address] Dr. Alejandrina Washburn %0.4 %Normal0.0-0.5The [facility] Centerment on above: Performed By: #### CBC #### [facility] [address] [place] [address] Dr. Alejandrina FreemanH #1.6 103/ulNormal1.2-3.8The [facility] Centerment on above:Performed By: #### CBC #### [facility] [address] [place] [address] Dr. Alejandrina Freemanhocytes/100 WBC (Bld)11.2 %Critically low20.5-60.0The [facility] Centerment on above:Performed By: #### CBC #### [facility] [address] [place] [address] Dr. Alejandrina MariaUAL DIFF REQNONormalThe White HospitalComment on above: Performed By: #### CBC #### [facility] [address] [address] [address] Alejandrina Lion (RBC) [Entitic mass]28.0 diCtfpik20.7-34.0The [facility] HospitalComment on above:Performed By: #### CBC #### [facility] [address] [place] [address] Dr. Alejandrina Lion (RBC) [Mass/Vol]31.9 g/aCYfmoho43.9-35.2The [place] HospitalComment on above:Performed By: #### CBC #### [facility] [address] [place] [address] Dr. Alejandrina Lion (RBC) [Entitic vol]87.6 uXLedalj67.0-99.0The [facility] HospitalComment on above:Performed By: #### CBC #### [facility] [address] [place] [address] Dr. Alejandrina Reid #0.6 103/ulNormal0.3-0.8The [facility] HospitalComment on above:Performed By: #### CBC #### [facility] [address] [place] [address] Dr. Alejandrina Deviocytes/100 WBC (Bld)4.5 %Normal1.7-12.0[facility] Comment on above:Performed By: #### CBC #### [facility] [address] [place] [address] Dr. Alejandrina Jones #11.4 103/ulCritically high1.4-6.5[facility] Comment on above:Performed By: #### CBC #### [facility] [address] [place] [address] Dr. Alejandrina Slaughterutrophils/100 WBC (Bld)82.1 %Critically high43.0-75.0The [facility] HospitalComment on above:Performed By: #### CBC #### [facility] [address] [place] [address] Dr. Alejandrina Pettylet mean volume (Bld) [Entitic vol]9.1 fLCritically low 9.5-13.5The [facility] HospitalComment on above:Performed By: #### CBC #### [facility] [address] [place] [address] Dr. Alejandrina FengPLT363 103/fpTmickh912-908Psv [facility] HospitalComment on above: Performed By: #### CBC #### [facility] [address] [place] [address] Dr. Alejandrina FengRBC5.15 106/ulNormal4.20-5.40The [place] HospitalComment on above:Performed By: #### CBC #### [facility] [address] [place] [address] Dr. Alejandrina FengWBC13.9 103/ulCritically high4.0-11.0The [facility] HospitalComment on above:Performed By: #### CBC #### [facility] [address] [place] [address] Dr. Alejandrina CruzF 14(COMP METB)on 69-08-5846Dvtkasz [Mass/Vol]4.0 g/dLNormal 3.4-5.0The [facility] HospitalComment on above:Performed By: #### PTHINT #### [facility] [address] [place] [address] Dr. Alejandrina FengAlbumin/Globulin [Mass ratio]0.8 {ratio}NormalThe White HospitalComment on above:Performed By: #### PTHINT #### [facility] [address] [place] [address] Dr. Alejandrina Nicole [Catalytic activity/Vol]200 U/LCritically vhxj36-998Cou [facility] HospitalComment on above:Performed By: #### PTHINT #### [facility] [address] [place] [address] Dr. Alejandrina You [Catalytic activity/Vol]29 U/EQbexcj29-23Ubh [facility] HospitalComment on above:Performed By: #### PTHINT #### [facility] [address] [place] [address] Dr. Alejandrina Felix gap [Moles/Vol]12.2 mmol/LNormalThe [facility] Comment on above:Performed By: #### PTHINT #### [facility] [address] [address] [address] Alejandrina FengAST [Catalytic activity/Vol]25 U/VNptoqq47-07Dsf [facility] HospitalComment on above:Performed By: #### PTHINT #### [facility] [address] [address] [address] Alejandrina FengBilirubin [Mass/Vol]0.4 mg/dLNormal0.2-1.0[facility] Comment on above:Performed By: #### PTHINT #### [facility] [address] [address] [address] Alejandrina FengCalcium [Mass/Vol]9.5 mg/dLNormal8.5-10.1[facility] Comment on above:Performed By: #### PTHINT #### [facility] [address] [address] [address] Alejandrina FengChloride [Moles/Vol]101 mmol/HFrwvos71-620GcnSelect Medical Specialty Hospital [facility] Comment on above:Performed By: #### PTHINT #### [facility] [address] [address] [address] Alejandrina FengCO2 [Moles/Vol]25.8 mmol/XZfkffc07.0-32.0[facility] Comment on above:Performed By: #### PTHINT #### [facility] [address] [address] [address] Alejandrina FengCreatinine [Mass/Vol]0.69 mg/dLNormal0.55-1.02[facility] NorthComment on above:Performed By: #### PTHINT #### [facility] [address] [place] [address] Dr. Alejandrina CamarilloGFR-AF NORWEGIAN>60Normal>=60The [facility] HospitalComment on above:Performed By: #### PTHINT #### [facility] [address] [address] [address] Alejandrina CamarilloGFR-NON AF NORWEGIAN>60Normal>=60The [facility] HospitalComment on above:Performed By: #### PTHINT #### [facility] [address] [address] [address] Alejandrina FengGlobulin (S) [Mass/Vol]4.8 g/dLNormalThe White HospitalComment on above:Performed By: #### PTHINT #### [facility] [address] [address] [address] Alejandrina FengGlucose [Mass/Vol]96 mg/eXLahvew50-393Wum [facility] Comment on above:Performed By: #### PTHINT #### [facility] [address] [address] [address] Alejandrina FengPotassium [Moles/Vol]4.0 mmol/LNormal3.5-5.1[facility] Comment on above:Performed By: #### PTHINT #### [facility] [address] [address] [address] Alejandrina FengProtein [Mass/Vol]8.8 g/dLCritically high6.4-8.2The [facility] HospitalComment on above:Performed By: #### PTHINT #### [facility] [address] [address] [address] Alejandrina FengSodium [Moles/Vol]135 mmol/LCritically csy371-796Ywn [facility] HospitalComment on above:Performed By: #### PTHINT #### [facility] [address] [address] [address] Alejandrina FengUrea nitrogen [Mass/Vol]18.0 mg/dLNormal7.0-18.0The [facility] HospitalComment on above:Performed By: #### PTHINT #### [facility] [address] [address] [address] Alejandrina FengUrea nitrogen/Creatinine [Mass ratio]26.1 mg/mgNoalThe White HospitalComment on above:Performed By: #### PTHINT #### [facility] [address] [address] [address] Alejandrina Vallejo, HIGH SENSITIVITYon 99-78-6426EZFZDX9.4 pg/mLNormal 4.0-51.3The [facility] HospitalComhenry [facility] on above:Result Comment: CUT-OFF POINTS HAVE BEEN ESTABLISHED BASED ON THE FOURTH UNIVERSAL DEFINITIONS OF MYOCARDIAL INFARCTION. THE UPPER REFERENCE LIMIT (URL) OF TROPONIN, DEFINED THE 99TH PERCENTILE OF cTnI DISTRIBUTION IN A REFERENCE POPULATION, HAS BEEN CONFIRMED THE DECISION THRESHOLD FOR UT DIAGNOSIS.Performed By: #### HSTROPN #### [facility] [address] [place] [address] Dr. Alejandrina FengHSTROP6.4 pg/mLNormal4.0-51.3The [facility] HospitalComhenry [facility] on above:Result Comment: CUT-OFF POINTS HAVE BEEN ESTABLISHED BASED ON THE FOURTH UNIVERSAL DEFINITIONS OF MYOCARDIAL INFARCTION. THE UPPER REFERENCE LIMIT (URL) OF TROPONIN, DEFINED THE 99TH PERCENTILE OF cTnI DISTRIBUTION IN A REFERENCE POPULATION, HAS BEEN CONFIRMED THE DECISION THRESHOLD FOR UT DIAGNOSIS.Performed By: #### PTHINT #### [facility] [address] [place] [address] Dr. Alejandrina FengXR CHEST 1 Von 72-38-3043DL CHEST 1 VEXAMINATION: XR CHEST 1 V HISTORY: CHEST PAIN, UNSPECIFIED COMPARISON: [...] Electronically authenticated by: EVERETT ERNANDEZ Date: 2022-02-22 13:20NormMarion Hospitale White HospitalOSMOLALITYon 53-59-3118Dwfoxvphck [Osmolality]284 mosm/kgNormal 280-301The [facility] HospitalComment on above:Performed By: #### PTHINT #### [facility] [address] [place] [address] Dr. Alejandrina FengOSMOLALITY URINEon 44-67-8587Svnxciwepx, Aodrm641 mOsmol/kgNormal The [facility] HospitalComhenry [facility] on above:Result Comment: 24 hr : 300 - 900 Random: 50 - 1400 After 12hr fluid restriction: >850Performed By: #### OSMOU #### [facility] [address] [address] [address] Alejandrina FelixH INTACTon 84-91-0773FKX, Pykhic34 pg/zOGqpalu38-44Qlg [facility] HospitalComment on above:Performed By: #### PTHINT #### [facility] [address] [address] [address] Alejandrina FengPROF CHEM 8 (BAS METB)on 17-78-6310Pbhse gap [Moles/Vol]12.7 mmol/LNormalThe White HospitalComment on above:Performed By: #### PTHINT #### [facility] [address] [place] [address] Dr. Alejandrina FengCalcium [Mass/Vol]8.7 mg/dLNormal8.5-10.1[facility] Comment on above:Performed By: #### PTHINT #### [facility] [address] [place] [address] Dr. Alejandrina FengChloride [Moles/Vol]100 mmol/HIcozve26-985MbaSelect Medical Specialty Hospital [facility] Comment on above:Performed By: #### PTHINT #### [facility] [address] [place] [address] Dr. Alejandrina FengCO2 [Moles/Vol]27.7 mmol/CRtqkyk47.0-32.0[facility] Comment on above:Performed By: #### PTHINT #### [facility] [address] [place] [address] Dr. Alejandrina FengCreatinine [Mass/Vol]0.65 mg/dLNormal0.55-1.02The [facility] HospitalComment on above:Performed By: #### PTHINT #### [facility] [address] [place] [address] Dr. Alejandrina CamarilloGFR-AF NORWEGIAN>60Normal>=60The [facility] HospitalComment on above:Performed By: #### PTHINT #### [facility] [address] [place] [address] Dr. Yilan ChangEGFR-NON AF NORWEGIAN>60Normal>=60The [facility] HospitalComment on above:Performed By: #### PTHINT #### [facility] [address] [place] [address] Dr. Alejandrina FengGlucose [Mass/Vol]103 mg/tDLiqwif22-964Iiw [facility] Comment on above:Performed By: #### PTHINT #### [facility] [address] [place] [address] Dr. Alejandrina FengPotassium [Moles/Vol]3.4 mmol/LCritically low3.5-5.1The [facility] HospitalComment on above:Performed By: #### PTHINT #### [facility] [address] [place] [address] Dr. Alejandrina Romerodium [Moles/Vol]137 mmol/BSenszc865-816Ihc [facility] Comment on above:Performed By: #### PTHINT #### [facility] [address] [place] [address] Dr. Alejandrina FengUrea nitrogen [Mass/Vol]15.0 mg/dLNormal7.0-18.0The [facility] HospitalComment on above:Performed By: #### PTHINT #### [facility] [address] [place] [address] Dr. Alejandrina James nitrogen/Creatinine [Mass ratio]23.1 mg/mgNormalThe White HospitalComment on above:Performed By: #### PTHINT #### [facility] [address] [place] [address] Dr. Alejandrina Alba RANDOM URINEon 12-17-6572Nwojka (U) [Moles/Vol]74 mmol/L Izumaw29-01Gkp White HospitalComment on above:Performed By: #### BRIGETTE #### [facility] [address] [place] [address] Dr. Alejandrina RoblesHoyudy 19-04-2828GHB5.791 uIU/mLNormal0.358-3.740The White HospitalComment on above:Performed By: #### PTHINT #### [facility] [address] [address] [address] Alejandrina FengFlower HospitalComment on above: Result Comment: <0.34 UIU/ml HYPERTHYROID 0.34-5.60 UIU/ml EUTHYROID >5.60 UIU/ml HYPOTHYROIDPerformed By: #### PTHINT #### [facility] [address] [address] [address] Alejandrina Feng Vital Signs Date TimeVital SignValuePerforming EpjmpioxrGejjqxxy07-28-2749 09:27-0400Body zyabhg796.56 cmBenjamin Ball DO Work Phone: [phone]07-25-2025 09:27-0400 Body mass index (BMI) [Ratio]25.7 kg/u9Hyfzfcsd Ball DO Work Phone: [phone] [place], [place] 6523707-25-2025 09:27-0400 Body jlguli95.09 kgBenjamin Ball DO Work Phone: [phone] [place], [place] 7503407-25-2025 09:27-0400 Diastolic blood eskluxjm36 mm[Hg]Segun Ball DO Work Phone: [phone]07-25-2025 09:27-0400 Heart rate71 /minBenjamin Ball DO Work Phone: [phone]07-25-2025 09:27-0400 Respiratory rate12 /minBenjamin Ball DO Work Phone: [phone] [place], [place] 6523707-25-2025 09:27-0400 Systolic blood ggyklwuk986 mm[Hg]Segun Ball DO Work Phone: [phone] [place], [place] 6523703-10-2025 10:40-0400 Body bumyim622.56 cmOhio[facility]03-10-2025 10:40-0400Body mass index (BMI) [Ratio]24.6 kg/h1DngouzunvOhiohealth Grove [facility] Hospital03-10-2025 10:40-0400Body gwareu83.09 kgOhiohealth [facility]03-10-2025 10:40-0400Diastolic blood zzukhvqy11 mm[Hg][facility] 12-02-2024 10:40-0400Heart rate80 /[facility] 12-02-2024 10:40-0400Respiratory rate12 /[facility] 12-02-2024 10:40-0400Systolic blood whxzwemb114 mm[Hg][facility]12-31-2024 10:51-0500Body xjghyk011.56 cmOhiohealth [facility]12-31-2024 10:51-0500Body mass index (BMI) [Ratio]24.7 kg/n1SlkxcbhmcOhiohealth [facility] Hospital12-31-2024 10:51-0500Body cmqmga11.31 kgOhiohealth [facility]12-31-2024 10:51-0500Diastolic blood teonklqj81 mm[Hg] [facility]12-31-2024 10:51-0500Heart rate74 /[facility]12-31-2024 10:51-0500Systolic blood dchvjnub187 mm[Hg] [facility]11-13-2024 09:24-0500Body bwunoa841.56 cm [facility]11-13-2024 09:24-0500Body mass index (BMI) [Ratio]24.9 kg/a7KeycjwwfyOhiohealth Grove City [facility] Hospital11-13-2024 09:24-0500Body vrfczy86.94 kgOhiohealth [facility]11-13-2024 09:24-0500Diastolic blood mmhekxyv67 mm[Hg][facility]11-13-2024 09:24-0500 Heart rate83 /[facility]11-13-2024 09:24-0500 Respiratory rate12 /[facility]11-13-2024 09:24-0500 Systolic blood bsnugfoo007 mm[Hg][facility]11-01-2024 09:06-0400Body bnotky266.56 cmOhiohealth [facility]11-01-2024 09:06-0400Body mass index (BMI) [Ratio]25.1 kg/k8EwgrgrtouOhiohealth [facility] Hospital11-01-2024 09:06-0400Body viqixa19.39 kgOhiohealth [facility] 07-26-2024 09:06-0400Diastolic blood philsbsg99 mm[Hg][facility]11-01-2024 09:06-0400Heart rate76 /[facility] 07-26-2024 09:06-0400Respiratory rate12 /[facility] 07-26-2024 09:06-0400Systolic blood andjfevu594 mm[Hg][facility]07-22-2024 14:16-0400Body guemch337.56 cmOhiohealth [facility]07-22-2024 14:16-0400Body mass index (BMI) [Ratio]25.9 kg/q5CvpdsfocfOhiohealth Grove City Methodist Hospital07-22-2024 14:16-0400Body depuuv35.71 kgOhiohealth [facility]07-22-2024 14:16-0400Diastolic blood mm[Hg] [facility]07-22-2024 14:16-0400Heart rate80 /[facility]07-22-2024 14:16-0400Respiratory rate12 /[facility]07-22-2024 14:16-0400Systolic blood kufkncvw901 mm[Hg] [facility]05-28-2024 14:50-0400Blood Pressure Location DashBurst [facility]05-28-2024 14:50-0400Body emohmrbqojg33.06 [degF]Kelsie OrzeTransgenomic [facility]05-28-2024 14:50-0400Diastolic blood nyhpoqqp53 mm[Hg]Kelsie Orzech [facility]05-28-2024 14:50-0400Heart rate83 /minAurora Orzech [facility]05-28-2024 14:50-0400Respiratory rate16 /minAurora Orzech [facility]05-28-2024 14:50-0400Systolic blood flfgzigc575 mm[Hg]Kelsie Orzech [facility]05-28-2024 12:02-0400Body .56 cmOhio[facility]05-28-2024 12:02-0400Body mass index (BMI) [Ratio]25.8 kg/s0WyfuxelquOhiohealth Grove City Methodist Hospital05-28-2024 12:02-0400Body tujoim90.26 kgOhiohealth [facility]05-28-2024 12:02-0400Diastolic blood ivovgtle33 mm[Hg] [facility]05-28-2024 12:02-0400Heart rate83 /[facility]05-28-2024 12:02-0400Respiratory rate12 /[facility]05-28-2024 12:02-0400Systolic blood eoynjctu322 mm[Hg] [facility]04-03-2024 09:02-0400Body lywabp585.56 cm [facility]04-03-2024 09:02-0400Body mass index (BMI) [Ratio]26.2 kg/m2PhucznituOhiohealth [facility] City [facility] Hospital04-03-2024 09:02-0400Body .11 kgOhiohealth [facility]04-03-2024 09:02-0400Diastolic blood mm[Hg][facility]04-03-2024 09:02-0400 Heart rate76 /[facility]04-03-2024 09:02-0400 Respiratory rate12 /[facility]04-03-2024 09:02-0400 Systolic blood yfdhklnr877 mm[Hg][facility]03-26-2024 08:57-0400Body .56 cmOhio[facility]03-26-2024 08:57-0400Body mass index (BMI) [Ratio]25.9 kg/q0RwdhcqhalOhiohealth [facility] Hospital03-26-2024 08:57-0400Body ahzdna41.54 kgOhiohealth [facility] 12-19-2023 08:57-0400Diastolic blood badzwgov36 mm[Hg][facility]03-26-2024 08:57-0400Heart rate98 /[facility] 12-19-2023 08:57-0400Respiratory rate12 /[facility] 12-19-2023 08:57-0400Systolic blood gasbrtnz616 mm[Hg][facility]01-15-2024 10:00-0500Body fhqpih864.56 cmBenjamin Ball Other [facility]01-15-2024 10:00-0500 Body mass index (BMI) [Ratio]25.81 kg/s2Uczompgr Ball Other [employer] Other 01-15-2024 10:00-0500Body vefqoi75.22 kgBenjamin Ball Other [facility]01-15-2024 10:00-0500 Diastolic blood lugzrqbu66 mm[Hg]Segun Ball Other [facility]01-15-2024 10:00-0500 Respiratory rate12 /minBenjamin Ball Other [employer] Other 01-15-2024 10:00-0500Systolic blood eafvvnno923 mm[Hg] Segun Ball Other [facility]12-26-2023 13:45-0500 Body .56 cmBenjamin Ball Other [employer] Other 12-26-2023 13:45-0500Body mass index (BMI) [Ratio] 26.02 kg/l4Dahuboze Ball Other [employer] Other 12-26-2023 13:45-0500Body .77 kgBenjamin Ball Other [employer] Other 12-26-2023 13:45-0500Diastolic blood eedveyub44 mm[Hg] Segun Ball Other [employer] Other 12-26-2023 13:45-0500Respiratory rate12 /minBenjamin Ball Other [employer] Other 12-26-2023 13:45-0500Systolic blood lomoizjk866 mm[Hg] Segun Ball Other [employer] Other 07-17-2023 11:00-0400Body shyaih454.56 cmBenjamin Ball Other [employer] Other 07-17-2023 11:00-0400Body mass index (BMI) [Ratio] 26.29 kg/o9Rhbamwzb Ball Other [employer] Other 07-17-2023 11:00-0400Body xepeli23.49 kgBenjamin Ball Other [employer] Other 07-17-2023 11:00-0400Diastolic blood cogeuywa64 mm[Hg] Segun Ball Other [employer] Other 07-17-2023 11:00-0400Respiratory rate12 /minBenjamin Ball Other [employer] Other 07-17-2023 11:00-0400Systolic blood mm[Hg] Segun Ball Other [employer] Other 05-03-2023 12:30-0400Body ygcfku356.56 cmBenjamin Ball Other [employer] Other 05-03-2023 12:30-0400Body mass index (BMI) [Ratio] 26.05 kg/x0Mtprhhzb Ball Other [employer] Other 05-03-2023 12:30-0400Body nuvbvn46.86 kgBenjamin Ball Other [employer] Other 05-03-2023 12:30-0400Diastolic blood qlgzwaly98 mm[Hg] Segun Ball Other [employer] Other 05-03-2023 12:30-0400Respiratory rate12 /minBenjamin Ball Other [employer] Other 05-03-2023 12:30-0400Systolic blood cldhetah882 mm[Hg] Segun Ball Other [employer] Other 03-14-2023 11:00-0400Body otfmcz400.56 cmBenjamin Ball Other [employer] Other 03-14-2023 11:00-0400Body mass index (BMI) [Ratio] 25.98 kg/h7Jelwdrxc Ball Other [employer] Other 03-14-2023 11:00-0400Body sxdaot56.68 kgBenjamin Ball Other [employer] Other 03-14-2023 11:00-0400Diastolic blood yfgsgjaz70 mm[Hg] Segun Ball Other [facility] [employer] Other 03-14-2023 11:00-0400Respiratory rate16 /minSegun Sancho Other [facility] [employer] Other 03-14-2023 11:00-0400Systolic blood olffpijy027 mm[Hg] Segun Kingsley Other [facility] [employer] Other 10-19-2022 13:16-0400Blood Pressure LocationJENNIFER SVITLANA [facility]10-19-2022 13:16-0400Diastolic blood ilmfmgpi99 mm[Hg]NOE SVITLANA [facility]10-19-2022 13:16-0400Heart rate79 /minJENNIFER SVITLANA [facility]10-19-2022 13:16-0400Respiratory rate16 /minJENNIFER SVITLANA [facility]10-19-2022 13:16-0400Systolic blood tpgrgolp046 mm[Hg]NOE SVITLANA [facility] Encounters Encounter DateEncounter TypeCare ProviderFacilityStart: 77-69-3886jywtlwakra Enrique Layne WATERSFacility:ROSE BellevueStart: 05-29-2025 End: 44-29-3775wutiojirmpEthtezut Ball DO Work Phone: [facility] Work Phone: Start: 05-29-2025 End: 26-83-7810Phqfrdw encounter procedureMago Tan MD-[facility] Work Phone: Start: 04-18-2025 End: 12-76-1728ngdvofruqiRkohotpk Ball DO Work Phone: [facility] Work Phone: Start: 04-18-2025 End: 45-82-7952Igcrvzx encounter procedureBenstacia Kingsley DO-[facility] Work Phone: Start: 04-18-2025 End: 43-37-2281Rcxdnbj encounter statusBenstacia Kingsley [facility]: 03-03-2025 End: 79-39-1774mwjjjpqbwsOslzkel R WATERSFacility:EU BellevueStart: 03-03-2025 End: 92-03-0756Uwarank encounter procedureEnrique VÁSQUEZ [facility] Marj start: 01-30-2025 End: 18-80-3786kiskdoimthMhrmgroloCleveland Clinic [facility] Work Phone: Start: 01-30-2025 End: 63-72-6903Phrqfuw encounter procedureFirsharyns Physician Group-[facility] Work Phone: Start: 12-02-2024 End: 84-46-6264uvormcadudMlzteiyrdCleveland Clinic [facility]inte [facility] Work Phone: Start: 12-02-2024 End: 27-49-4462Eundsof encounter procedureFirelands Physician Group-[facility] Work Phone: Start: 09-24-2024 End: 54-88-6933Kpknwum encounter procedureFirelands Physician Group-[facility] Work Phone: Start: 08-07-2024 End: 67-41-8397paiulokjodZgieulperCleveland Clinic [facility] Work Phone: Start: 08-07-2024 End: 37-16-9703Xhdtucq encounter procedureFirelands Physician Group-[facility] Work Phone: Start: 54-57-4683Ezq-patient / Non-visitFirbuchanan general hospital Physician [facility] Work Phone: Start: 07-26-2024 End: 03-47-0953jyekepghgvXrcbudziiBlanchard [facility] Work Phone: Start: 07-26-2024 End: 99-81-3682Wzcnpbj encounter procedureC[facility] Work Phone: Start: 05-06-2024 End: 87-12-4850mjankkwrkrBncwipje SanchoFacility:[facility] Start: 62-51-1242Wms-patient / Non-visitC[facility] Work Phone: Start: 33-75-1949Bxy-patient / Non-visitC[facility] Work Phone: Start: 04-15-2024 End: 69-50-9752zshbiqvulyGtcuuhlroBlanchard [facility] Work Phone: Start: 04-15-2024 End: 48-86-1777Mwhsckcze for general adult medical examination without abnormal findingsMartin Memorial Hospitaltart: 04-15-2024 End: 01-99-1286Bibfvgi encounter procedureC[facility] Work Phone: Start: 02-20-2024 End: 04-81-3781Zsk Drop offAurora X Orzech [facility] Start: 02-20-2024 End: 33-06-7984Ncdyaxn encounter procedureAurora X Orzech [facility] start: 02-20-2024 End: 53-38-6848illyujdvtyJugpyklltCleveland Clinic [facility] Work Phone: Start: 02-20-2024 End: 52-47-2359Blevjdp encounter procedureC[facility] Work Phone: Start: 08-51-0908Ozi-patient / Non-visitC[facility] Work Phone: Start: 12-27-2023 End: 67-24-2791mwvvprnuvpRhnbknrirC[facility] Clinic [facility] Work Phone: Start: 12-27-2023 End: 64-25-4361Oghhhxm encounter procedureC[facility] Work Phone: Start: 12-19-2023 End: 44-57-9937maprvpdepcOgncdgeqhC[facility] Clinic [facility] Work Phone: Start: 12-19-2023 End: 93-63-3585Uzlpdxy encounter procedureC[facility] Work Phone: Start: 80-42-3605Qao-patient / Non-visitC[facility] Work Phone: Start: 10-10-2023 End: 21-00-3791ajfcilpuffAnzxfosx Ball Other [employer] Other Start: 22-17-4481Tivmauqsh encounterBenstacia Kingsley [facility]: 10-09-2023 End: 54-34-9843obrdcieoxsDtjaxpmt Ball Other [employer] Other Start: 12-14-0248Yhfmre outpatient visit 25 minutes Segun SanchoKettering Health Miamisburg ClinicStart: 10-09-2023 End: 05-99-8698Arygekr encounter procedureC[facility]ician [facility] Work Phone: Start: 09-22-2023 End: 78-06-5076hsppzrjvrsLrqhcbnp Ball Other [employer] Other Start: 61-79-6304Bptyprnrd encounterBenjamin BallFPG [facility] ClinicStart: 09-19-2023 End: 92-93-0720csppxesldxEuvvxslf Ball Other [facility] [employer] Other Start: 76-74-9469Wfahvz outpatient visit 15 minutes Segun BallFPG [facility] ClinicStart: 29-54-6626Nhdlxvatm encounterBenjamin BallFPG [facility] ClinicStart: 09-13-2023 End: 83-57-2020vrxyxpxunfITZPXL H [facility] [employer] Other Start: 09-05-2023 End: 06-71-9225Ghwbphxfz Result EncounterAnum Dumont MD Work Phone: noms External Department UnsolicitedStart: 09-05-2023 End: 20-17-8447Crjjsnfus Result EncounterHienderry Dacia Dumont MD Work Phone: noms External Department UnsolicitedStart: 07-19-2023 End: 16-03-0342fxcyrafbcbYtlsbpif Ball Other [facility] [employer] Other Start: 67-43-9684Arnntu outpatient visit 15 minutes Segun BallFPG [facility] ClinicStart: 06-20-2023 End: 07-56-2652caorxvbzxpUndctxmx Ball Other [facility] [employer] Other Start: 45-73-8301Hkcautyfb encounterBenjamin BallFPG [facility] ClinicStart: 04-13-2023 End: 17-62-0778katyemahkwYonfxcwm Ball Other [facility] [employer] Other Start: 96-03-8314Tinemdbfc encounterBenjamin BallFPG [facility] ClinicStart: 04-10-2023 End: 78-09-0870rveewcswodIoccxxdo Ball Other [employer] Other Start: 68-28-4120Datlnlsqw for general adult medical examination without abnormal findingsSegun Kingsley Medical ClinicStart: 94-03-7853Kvpieejc preventive med est patient 65yrs& olderSegun Kingsley Medical ClinicStart: 01-25-2023 End: 46-10-5547bfftfepamxAccnzdat Ball Other [employer] Other Start: 17-17-7346Tjxmyp outpatient visit 15 minutes Segun Kingsley Medical ClinicStart: 01-20-2023 End: 00-70-0774nimewuflwqSM ENRIQUE VÁSQUEZ .Facility:B5Vasjw: 12-06-2022 End: 96-08-0010vgqfvjkaolYahsfzlk Ball Other [employer] Other Start: 21-33-5550Txurwl outpatient visit 25 minutes Segun Kingsley Medical ClinicStart: 10-27-2022 End: 07-65-3850ldkhhwxxmcBY ENRIQUE VÁSQUEZ .Facility:I8Xtwhl: 08-26-2022 End: 96-81-7435ifahqhtipiAG ANUM GIGISFacility:L3Nuicn: 07-13-2022 End: 34-19-1940rysbuertxcZwlssa ZieberFacility:J4Btzpr: 07-13-2022 End: 17-96-3762Blbkkpm encounter procedureJENNIFER E SVITLANA [facility] start: 07-06-2022 End: 91-04-2533xegnkujthrVY SEGUN KINGSLEYFacility:A0Zzovl: 06-20-2022 End: 67-68-7728lzdjrfawkzVF SEGUN KINGSLEYFacility:H8Hgbgs: 13-49-7550Sbwbt health examinationSegun Kingsley Other [employer] Other Start: 03-11-2022 End: 67-87-9148ahaognttyeAV SEGUN BALLFacility:Q1Pijam: 03-09-2022 End: 63-28-5803uohmvnhztdPF ENRIQUE VÁSQUEZ .Facility:Z0Auljp: 03-02-2022 End: 46-28-0564jyekrwwygjXR SEGUN BALLFacility:S7Luihq: 02-22-2022 End: 04-48-8648nfwtvqlkkjLI SEGUN BALLFacility:D0Gpiqo: 01-31-2022 End: 83-60-6848eabrkyjwmaWJ SEGUN BALLFacility:H1 Procedures DateProcedureProcedure DetailPerforming ClinicianStart: 65-91-8842Dwqghjghxeb of nimzsq-ucuzwx-qqewmseDzbvui Orzech Start: 10-77-4369Wx soft tissue head & neck real time imge Desiree Dumont MD Work Phone: Start: 11-49-8008Bqjosufvvpvkol shockwave lithotripsy of calculus of kidneyJENNIFER SVITLANA Start: 28-04-2400CdxbvfrwnhnmCGLWZUAN SVITLANA Start: 71-47-7018Addegzkehswmdl shockwave lithotripsy of calculus of kidneyJENNIFER SVITLANA Start: 13-04-1765Onpcurqwplfrpy shockwave lithotripsy of calculus of kidneyJENNIFER SVITLANA Start: 08-16-1610Wcoisxzghsfptb shockwave lithotripsy of calculus of kidneyJENNIFER SVITLANA ColonoscopyJENNIFER SVITLANA End: 60-76-1127Dzrqcfxrxoxbpm screeningBenjamin Ball Other HysterectomyJENNIFER SVITLANA Screening for malignant neoplasm of breastBenjamin Ball Other Plan of Treatment DateCare ActivityDetailAuthorComprehensive metabolic 1999 panel - Serum or [facility] HospitalComprehensive metabolic 2000 panel - Serum or [facility] HospitalComprehensive metabolic 2000 panel - Serum or [facility] HospitalMG Breast - bilateral ScreeningOhiohealth Grove City Methodist HospitalMG Breast - bilateral Screening [facility] HospitalPatient EducationLow back pain in adults [facility] Work Phone: xr Foot - right GE 3 ViewsH[facility] Immunizations Immunization DateImmunizationNotesCare IyxdevofMptmxipb41-66-6067feukquezc virus vaccine, split virus (incl. purified surface antigen)Segun Kingsley Other [employer] Other [id number] virus vaccine, unspecified formulationOhiohealth Grove City Methodist Hospital09-28-2022influenza, high dose seasonal, preservative-freeBenstacia Kingsley Other [employer] Other 07-030196-70-9721tohboqbhalli conjugate vaccine, 13 valent ONE SVITLANA [facility]12-08-2021COVID-19 Vaccine Pfizer - Documentation Purposes OnlySegun Kingsley Other [facility]12-08-2021SARS-CoV-2 (COVID-19) Ad26 vaccine, recombinantJENNIFER SVITLANA [facility]10-25-2021influenza virus vaccine, split virus (incl. purified surface antigen)Segun Kingsley Other [employer] Other [id number] virus vaccine, unspecified formulationOhiohealth [facility] Hospital09-01-2021influenza virus vaccine, unspecified formulationJENNIFER SVITLANA [facility]04-13-2021diphtheria, tetanus toxoids and acellular pertussis vaccine, unspecified formulationBenkenrickmin Ball Other [facility]04-13-2021tetanus toxoid, reduced diphtheria toxoid, and acellular pertussis vaccine, adsorbed NOE SVITLANA [facility]04-02-2021COVID-19, mRNA, LNP-S, PF, 30 mcg/0.3 mL doseJENNIFER SVITLANA [facility] HospitalComment on above:Reason for Medication: Pmhjjzdtnzm24-52-1583RIVSO-63, mRNA, LNP-S, PF, 30 mcg/0.3 mL doseJENNIFER SVITLANA [facility] HospitalComment on above:Reason for Medication: Sqgcdfblyzo16-16-3024qspvpblupork polysaccharide vaccine, 23 valentBenjamin Ball Other [facility]11-17-2020influenza virus vaccine, split virus (incl. purified surface antigen)Segun Kingsley Other [facility] [employer] Other 11379025-89-9190jriequgfc virus vaccine, unspecified formulationOhiohealth [facility] City [facility] Hospital11-16-2020influenza virus vaccine, unspecified formulationJENNIFER SVITLANA [facility]ue10-31-2018influenza virus vaccine, split virus (incl. purified surface antigen)Segun Kingsley Other [employer] Other 672123-27-0882rjfibjaaq virus vaccine, unspecified formulationJENNIFER SVITLANA [facility]01-18-2018influenza virus vaccine, split virus (incl. purified surface antigen)Segun Kingsley Other [place] [employer] Other 01888918-91-3612aoqrtiwpk virus vaccine, unspecified formulationOhiohealth [facility] Hospital Payers DatePayer CategoryPayerPolicy [id number]-pay2024Medicare [id number] Health Insurance [id number] [id number] 2.16.840.1.574845.3.579.2.593 [id number] 2.16.840.1.445966.3.57[id number] 2.16.840.1.998832.3.57[id number] 2.16.840.1.890191.3.57[id number] 2.16.840.1.957669.3.57[id number] 2.16.840.1.470103.3.57[id number] 2.16.840.1.587013.3.57[id number] 2.16.840.1.315649.3.57[id number] 2.16.840.1.089857.3.57[id number] 2.16.840.1.531607.3.57[id number] 2.16.840.1.293968.3.57[id number] 2.16.840.1.284717.3.579.[id number] 2.16.840.1.905046.3.57[id number] 2.16.840.1.5[id number] 2.16.840.1.286578.3.579.2.531 Social History DateTypeDetailFacilityStart: 07-13-2022 End: 29-89-0293Sbcjjbn smoking statusNever smoked tobacco (finding)[facility] Hospitaltart: 55-98-8858Uchedbu smoking statusNeverExecutive Urology of Memorial Hospitaltart: 57-01-1735Yio [facility] At [facility]: 98-86-5773Rhs Assigned At [facility]tart: 11-27-2020 End: 95-05-0724LhpUcmmig (finding)[facility] Hospitalexual OrientationExec[facility] Tobacco smoking status NHISTobacco smoking consumption unknownNOAL HealthcareStart: 53-46-5346Daookax of Social functionNOAL Healthcare Start: 19-24-3826Ppg assigned at birthNot on [facility] [facility] Functional Status [id number] StatusN/AExec[facility]10-19-2022Functional StatusN/A[facility] Clinical Notes 07-13-2022 to 04-18-2025 Note Date & [id number] Evaluation note* Diagnosis Onset Date Resolution Status Admit Date Elevated cholesterol acuteJuly 2024 9:17amEssential (primary) hypertensionacuteJuly 2024 9:17amGastroesophageal reflux 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acute April 18, 2025 9:17amIFG (impaired fasting glucose)acuteJuly 2024 9:17am Lumbar spondylosisacuteJu2024 9:17amPrimary insomniaacuteJu2024 9:17amRecurrent major depressive disorder, in full remissionacuteApril 18, 2025 9:17amScreening mammogram for breast cancernoneactiveApril 18, 2025 9:17amWellness examinationnoneactiveJuly 2024 9:17am [facility] Work Phone: 1(843) 593-320506-09-2025 Hospital Discharge instructions Patient Education 03/03/2025 12:04:21 Dietary Guidelines [...] include: ?8 oz (237 mL) of milk, vtvcmlu-njhstqoxnupr-qovbi milk, and calcium- fortifiedfruit juice. Calcium-fortified means [...] ?Spinach (cooked), rhubarb, beets, sweet potatoes, and Canadian chard. ?Peanuts. ?Potato chips, serbian fries, and baked potatoes with skin on. ?Nuts and nut products. ?Chocolate. If you regularly take a diuretic medicine, make sure to eat at least 1 or 2 servings of fruits or vegetables that are high in potassium each day. These include: ?Avocado. ?Banana. ?Hartman, prune, carrot, or tomato juice. ?Baked potato. [...] magnesium, fish oil, or vitamin B6. Take tcer-mxb-ddphabu and prescription medicines only as told by [...] Casseroles. Pizza. Lasagna. Frozen meals. Potato chips. Lithuanian fries. The items listed above may not [...] provider. Document Revised: 12/22/2022 Document Reviewed: 12/22/2022 [employer] Patient Education 2023 [email or web address]. Follow Up Care 02/20/2024 15:25:41 With:MARCY GRESHAM, Enrique Layne, URL Address: [facility] [address] , [place] [address]- When: Unknown [facility] 06-09-2025 NotePatient Education Nephrology Dietary Guidelines to Help Prevent [...] labels. Limit your salt (sodium) intake to lessthan 1,500 mg a day. ??? Choose foods with calcium for each meal and snack. Try to eat about 300 mg of calcium at each meal. Foods that contain 200?500 mg of calcium a serving include: ? 8 oz (237 mL) of milk, lbvoeqs-hilfoikgrsas-xhiqs milk, and calcium- fortifiedfruit juice. Calcium-fortified means [...] on the table and allow each person toadd their own salt to taste. ??? Use [...] Spinach (cooked), rhubarb, beets, sweet potatoes, and Canadian chard. ? Peanuts. ? Potato chips, serbian fries, and baked potatoes with skin on. ? Nuts and nut products. ? Chocolate. ??? If you regularly take a diuretic medicine, make sure to eat at least 1 or 2 servings of fruits or vegetables that are high in potassium each day. These include: ? Avocado. ? Banana. ? Hartman, prune, carrot, or tomato juice. ? Baked potato. ? Cabbage. ? Beans and split peas. Lifestyle ??? Drink enough fluid to keep your urine pale yellow. This is the most important thing you can do.Spread your fluid intake throughout the day. ??? [...] fish oil, or vitamin B6. ??? Take osmr-pre-jmufsim and prescription medicines only as told by your health (more content not included)...[facility]03-10-2025 Evaluation note* Diagnosis Onset Date Resolution Status Admit Date Elevated cholesterol acuteMarch 2024 10:28amEssential (primary) hypertensionacuteMarch 2024 10:28amGastroesophageal reflux 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 acuteMarch 2024 10:28amLumbar spondylosisacuteMarch 2024 10:28am Primary insomniaacuteMarch 2024 10:28amRecurrent major depressive disorder, in full remissionacuteMarch 2024 10:28amRhinitisnoneactiveMarch 2024 10:28am [facility] Work Phone: 1(269) 513-262712-31-2024 Evaluation note* Diagnosis Onset Date Resolution Status Admit Date Abdominal pain acuteDecember 2023 10:46amChange in bowel habitnoneactiveDecember 2023 10:46amElevated cholesterolacuteMarch 2024 10:28amEssential (primary) hypertensionacuteMarch 2024 10:28amGastroesophageal reflux 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acuteMarch 2024 10:28amLumbar spondylosis acuteMarch 2024 10:28amPrimary insomniaacuteMarch 2024 10:28am Recurrent major depressive disorder, in full remissionacuteMarch 2024 10:28am [facility] Work Phone: 1(472) 981-885211-01-2024 Evaluation note* Diagnosis Onset Date Resolution Status Admit Date Allergic contact dermatitis due to cloth ing acuteNov2023 8:51amChronic venous insufficiency of lower extremity acuteJuly 26, 2024 8:51amElevated cholesterolacuteNovember 2023 9:17amEssential (primary) hypertensionacuteNovember 2023 9:17am Gastroesophageal reflux 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acuteNov2023 9:17amLumbar spondylosisacuteNov2023 9:17amPrimary insomniaacuteAugust 07, 2024 9:17amRecurrent major depressive disorder, in full remissionacuteAugust 07, 2024 9:17am [facility] Work Phone: 1(246) 614-937205-28-2024 Hospital Discharge instructions Patient Education 02/20/2024 16:06:08 [...] include: ?8 oz (237 mL) of milk, mabevut-yjxggcyuhmfx-nojsb milk, and calcium- fortifiedfruit juice. Calcium-fortified means [...] ?Spinach (cooked), rhubarb, beets, sweet potatoes, and Canadian chard. ?Peanuts. ?Potato chips, serbian fries, and baked potatoes with skin on. ?Nuts and nut products. ?Chocolate. If you regularly take a diuretic medicine, make sure to eat at least 1 or 2 servings of fruits or vegetables that are high in potassium each day. These include: ?Avocado. ?Banana. ?Hartman, prune, carrot, or tomato juice. ?Baked potato. [...] magnesium, fish oil, or vitamin B6. Take peww-nuf-qpjcffx and prescription medicines only as told by [...] Casseroles. Pizza. Lasagna. Frozen meals. Potato chips. Lithuanian fries. The items listed above may not [...] provider. Document Revised: 12/22/2022 Document Reviewed: 12/22/2022 [employer] Patient Education 2022 [email or web address]. 02/20/2024 16:06:04 Kidney Stones, Mqvk-di-Zhtr Kidney Stones Kidney stones are rock-like masses [...] Follow these instructions at home: Medicines Take kcbv-vnp-mvzuekv and prescription medicines only as told by [...] provider. Document Revised: 05/16/2022 Document Reviewed: 05/16/2022 [employer] Patient Education 2022 [email or web address]. [facility] Evaluation [facility]* Encounter Date Diagnosis Assessment Notes Treatment Notes Treatment Clinical Notes Sep, COVID-19 (ICD-10 - U07.1) [place] [employer] Other 01-15-2024 Evaluation note* Encounter Date Diagnosis Assessment Notes Treatment Notes Treatment Clinical Notes Sep, Primary hypertension (ICD-10 - I 10) This patient is instructed to consume a healthy, low-fat, low-salt diet. They are also encouraged to continue exercise to achieve/maintain a normal BMI. Sep,Lumbar spondylitis (ICD-10 - M46.96)The patient is instructed to avoid bending, twisting or lifting. They are to use intermittent heat and ice as needed. They may schedule a massage or gentle manipulation. They may safely use Tylenol as needed. Referred to pain management - prescribed Baclofen q HS - scheduled for injections later this week Sep,Elevated cholesterol (ICD-10 - E78.00)Instructed on diet and exercise with continued statin therapy.Discussed the beneficial effects of lo wering cholesterol in reducing the risk for cerebrovascular and cardiovascular disease. Sep,cute rhinitis (ICD-10 - J00)Instructed to use Flonase/saline NS daily. Mucinex to thin the secretions Instructed to test for COVID and call w/ results If develop fever and purulent drainage, call the office Sep,Gastroesophageal reflux 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 (ICD-10 - K21.00)Avoid lying flat after eating. Avoid eating 2 hours prior to bedtime. Smaller, frequent meals may be better tolerated.Weight loss if overweight.PPI with any heartburn.Monitor for dysphagia. Sep,ecurrent major depressive disorder, in full remission (ICD-10 - F33.42)Mood stable Instructed on healthy diet and exercise Instructed to continue medication w/o interruption. Instructed to avoid d/c meds abruptly [employer] Other 12-26-2023 Evaluation note* Encounter Date Diagnosis Assessment Notes Treatment Notes Treatment Clinical Notes Aug, Lumbar spondylosis (ICD-10 - M47 .816) The patient is instructed to avoid bending, twisting or lifting. They are to use intermittent heat and ice as needed. They may schedule a massage or gentle manipulation. They may safely use Tylenol as needed. Discussed referral back to PT - she is to continue HEP as instructed Discussed pain management - pain not to this level at this time Aug,cute bilateral low back pain without sciatica (ICD-10 - M54.50) Chronic conditino w/ acute exacerbation - instructed on stretching - continue Tylenol, Lidocaine as needed - XR to r/o compression fx [employer] Other 12-26-2023 Evaluation note* Encounter Date Diagnosis Assessment Notes Treatment Notes Treatment Clinical Notes Aug, Lumbar spondylosis (ICD-10 - M47 .816) The patient is instructed to avoid bending, twisting or lifting. They are to use intermittent heat and ice as needed. They may schedule a massage or gentle manipulation. They may safely use Tylenol as needed. Discussed referral back to PT - she is to continue HEP as instructed Discussed pain management - pain not to this level at this time Aug,cute bilateral low back pain without sciatica (ICD-10 - M54.50) Chronic condition w/ acute exacerbation - instructed on stretching - continue Tylenol, Lidocaine as needed - XR to r/o compression fx [employer] Other 12-20-2023 Evaluation note* Encounter Date Diagnosis Assessment Notes Treatment Notes Treatment Clinical Notes Aug, Nontoxic single thyr oid nodule (ICD-10 - E04.1) Serial US w/ stable size and appearance. Referred to ENT w/ no further scans recommended. [employer] Other 10-25-2023 Evaluation note* Encounter Date Diagnosis [...] in public places for complete 10 days Jun,Elevated cholesterol (ICD-10 - E78.00)Must stop Atorvastatin while taking Paxlovid Jun,rimary hypertension (ICD-10 - I10)Instructed to decrease Amlodipine to 5mg qd while taking Paxlovid [employer] Other 07-17-2023 Evaluation note* Encounter Date Diagnosis Assessment Notes Treatment Notes Treatment Clinical Notes Mar, Wellness examination (ICD-10 - Z 00.00) Healthy diet and exercise. Reviewed age-appropriate preventive testing recommended. Mar,astroesophageal reflux 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 (ICD-10 - K21.00)Diet instructions: Smaller portions, avoid eating and laying flat, avoid eating or drinking prior to bedtime. Weight loss. Mar,Recurrent major depressive disorder, in full remission (ICD-10 - F33.42)Stable w/ medical treatment. Healthy diet, keep active, exercise Mar,Elevated cholesterol (ICD-10 - E78.00)Instructed on diet and exercise with continued statin therapy.Discussed the beneficial effects of lo wering cholesterol in reducing the risk for cerebrovascular and cardiovascular disease. Mar,rimary hypertension (ICD-10 - I10)This patient is instructed to consume a healthy, low-fat, low-salt diet. They are also encouraged to continue exercise to achieve/maintain a normal BMI. Mar,Lumbar spondylitis (ICD-10 - M46.96)The patient is instructed to avoid bending, twisting or lifting. They are to use intermittent heat and ice as needed. They may schedule a massage or gentle manipulation. They may safely use Tylenol as needed. Mar,Screening mammogram for breast cancer (ICD-10 - Z12.31)Instructed on monthly SBE and yearly mammogram - due in [facility] [employer] Other 05-03-2023 Evaluation note* Encounter Date Diagnosis Assessment Notes Treatment Notes Treatment Clinical Notes January, Insect bite (nonveno mous) of unspecified part of head, initial encounter (ICD-10 - S00.96XA) Irregularly shaped erythematous skin lesion on right cheek. No s/s infection or tinea Trial of mild topical steroids No improvement, refer to dermatology January,itten or stung by nonvenomous insect and other nonvenomous arthropods, initial encounter (ICD-10 -W57.XXXA) January,ilateral nephrolithiasis (ICD-10 - N20.0)Push fluids and continue K-citrate. f/u Urology January,Vaccine counseling (ICD-10 - Z71.85)UTD w/ Tdap and pneumonia Due for COVID booster and Shingrix [employer] Other 03-14-2023 Evaluation note* Encounter Date Diagnosis Assessment Notes Treatment Notes Treatment Clinical Notes Nov, Primary hypertension (ICD-10 - I 10) This patient is instructed to consume a healthy, low-fat, low-salt diet. They are also encouraged to continue exercise to achieve/maintain a normal BMI. Nov,Elevated cholesterol (ICD-10 - E78.00)Diet and exercise with continued statin therapy. Nov,Lumbar spondylosis (ICD-10 - M47.816)The patient is instructed to avoid bending, twisting or lifting. They are to use intermittent heat and ice as needed. They may schedule a massage or gentle manipulation. They may safely use Tylenol as needed. Nov,Recurrent major depressive disorder, in full remission (ICD-10 - F33.42)Healthy diet, exercise and keep active. Continue medical treatment. Nov,astroesophageal reflux 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 (ICD-10 - K21.00)Diet instructions: Smaller portions, avoid eating and laying flat, avoid eating or drinking prior to bedtime. Continue PPI [employer] Other 10-19-2022 Hospital Discharge instructions Patient Education 07/13/2022 13:30:11 Kidney Stones, Rntz-aw-Qwpa Kidney Stones Kidney stones are rock-like masses [...] Follow these instructions at home: Medicines Take dlyt-tcz-scaidyq and prescription medicines only as told by [...] 02/27/2009 Document Revised: 01/28/2020 Document Reviewed: 01/28/2020 [employer] Patient Education 2020 [email or web address]. Follow Up Care 10/18/2021 12:21:40 With:SVITLANA IBARRA, NOE Anderson, URL Address: [facility] [address] [facility] [place] [address] [phone] When: Unknown [facility] 10-19-2022 Evaluation + Plan note Future Scheduled Tests Laboratory* Basic Metabolic Panel 07/13/[address] [facility] evaluation + Plan note Future Appointments Appointment Date:02/24/2025 09:15:00 AM Scheduled Provider:Enrique VÁSQUEZ MD Location:[facility] Appointment Type:URO Office Visit [facility] evaluation + Plan note Future Appointments Appointment Date:02/24/2025 09:15:00 AM Scheduled Provider:Enrique VÁSQUEZ MD Location:[facility] Appointment Type:URO Office Visit Diagnostic Tests Pending * [facility] Future [facility]ments Appointment Date:03/02/2026 10:30:00 AM Scheduled Provider:Enrique VÁSQUEZ MD Location:[facility] Appointment Type:URO Office Visit [facility] evaluation noteNo [employer] [employer] Other Evaluation note* Diagnosis Onset Date Resolution Status Plantar fasciitis of right foot noneactiveRight foot painWestern Reserve Hospital Work Phone: evaluation note* Diagnosis Onset Date Resolution Status Plantar fasciitis of right foot noneactiveRight foot painnoneactiveEssential (primary) hypertensionacute OsteoporosisacuteAvulsion fracture of metatarsal bone of right footWestern Reserve Hospital Work Phone: Evaluation note* Diagnosis Onset Date Resolution Status Plantar fasciitis of right foot noneactiveRight foot painnoneactiveOsteoporosisacuteAvulsion fracture of metatarsal bone of right footWestern Reserve Hospital Work Phone: evaluation note* Diagnosis Onset Date Resolution Status IBS (irritable bowel syndrome) acuteLow back painacuteElevated cholesterolacuteEssential (primary) hypertension acuteGastroesophageal reflux 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acute Lumbar spondylosisacuteOsteoporosisacutePrimary insomniaacuteRecurrent major depressive disorder, in full remissionacuteScreening mammogram for breast cancer noneactive [facility] Work Phone: evaluation note* Diagnosis Onset Date Resolution Status IBS (irritable bowel syndrome) acuteLow back painacuteElevated cholesterolacuteEssential (primary) hypertension acuteGastroesophageal reflux 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acute Lumbar spondylosisacutePrimary insomniaacuteRecurrent major depressive disorder, in full remissionacuteScreening mammogram for breast cancernoneactiveWellness examinationnonTr[facility] Work Phone: Evaluation noteNo assessment information available [facility] Work Phone: evaluation note* Diagnosis Onset Date Resolution Status Admit Date Elevated cholesterol acuteJuly 2024 9:17amEssential (primary) hypertensionacuteJuly 2024 9:17amGastroesophageal reflux 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acute April 18, 2025 9:17amLumbar spondylosisacuteJuly 2024 9:17amPrimary insomniaacuteJuly 2024 9:17amRecurrent major depressive disorder, in full remissionacuteJuly 2024 9:17amScreening mammogram for breast cancer noneactiveJuly 2024 9:17amWellness examinationnoneactiveJuly 2024 9:17am [facility] Work Phone: History general Narrative - Reported* Type Description Date Medical History Essential hypertension Medical HistoryHistory of nephrolithiasisMedical HistoryGAD (generalized anxiety disorder)Medical HistoryLiver massMedical HistoryDiverticulosis of sigmoid colonMedical HistoryChronic left-sided low back pain with left-sided sciatica Medical HistoryEpigastric abdominal painMedical HistoryDepression, major, recurrent, mildMedical HistoryHypokalemiaMedical HistoryIrritable bowel syndrome with constipationMedical HistoryMajor depressive disorder with single episode, in full remissionMedical HistoryHypercholesterolemiaMedical HistoryFatigue Medical HistoryEpisode of syncopeMedical HistoryCyst of thyroidMedical History TachycardiaMedical HistoryHyponatremiaMedical HistoryHypercalcemiaMedical HistoryInsomniaMedical HistoryGastroesophageal reflux 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Medical HistoryLumbar spondylosisMedical History NephrolithiasisMedical HistoryAllergic conjunctivitis, bilateralSurgical History ESWL, KIDNEY, [id number] HistoryFINE NEEDLE ASPIRATION, NODULE, THYROID 2020Surgical [id number] HistoryTAH/[id number] HistorySEE SURGICAL HX [facility] [employer] Other History general [facility]ative - [facility]NoF[facility] [employer] Other Hospital course Narrative No data available for this section [facility] Hospital Discharge instructions No data available for this section [facility] No data available for this section [facility] reason for referral (narrative)* Reason Referral for treatme nt of chronic low back pain Diagnosis 1 Acute bilateral low back pain without sciatica (M54.50) Diagnosis 2 Lumbar spondylosis ( M47.816) Referral Organization [facility] Sancho rivas Referring Provider First Name Segun Referring Provider Last Name Sancho Referring Provider Specialty Internal Me dicvictor hugo Referred Organization [facility] Referred Address [address], [place],[address] Referred Provider Specialty Pain Medicin e Referral [...] for injections. Clinical Notes Include XR results [employer] Other Reason for referral (narrative)No reason for referral information availableLutheran Hospital Work Phone: Summary Purpose Family History Relationship Condition Age at Onset Recorded Date/T david father Unknown Heart diseaseUnknownNot SpecifiedDeceasedUnknownHypertensionUnknownMalignant neoplasmUnknown Relationship Condition Age at Onset Recorded Date/T david father Unknown Heart diseaseUnknownmotherDeceasedUnknownHypertensionUnknownMalignant neoplasm Unknown Advance Directives Advance Directive Response Recorded Date/ Time Advance Directives No December 17 3:34pm Advance Directive Response Recorded Date/ Time Advance Directives No December 17 2:34pm Chief Complaint and Reason for Visit Chief Complaint 6 Month Amb Documentation hurt right footReason for VisitPlantar fasciitis of right foot Right foot pain Chief Complaint 6 Month Amb Documentation hurt right foot Right Side of FootReason for VisitPlantar fasciitis of right foot Right foot pain Essential (primary) hypertension Osteoporosis Avulsion fracture of metatarsal bone of right foot Chief Complaint Amb Documentation hurt right foot Right Side of Foot stomcah and bowel concernsReason for VisitPlantar fasciitis of right foot Right foot pain Osteoporosis Avulsion fracture of metatarsal bone of right foot Chief Complaint stomcah and bowel co ncerns wellnessReason for VisitIBS (irritable bowel syndrome) Low back pain Elevated cholesterol Essential (primary) hypertension Gastroesophageal reflux 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 Lumbar spondylosis Osteoporosis Primary insomnia Recurrent major depressive disorder, in full remission Screening mammogram for breast cancer Chief Complaint stomcah and bowel co ncerns wellnessReason for VisitIBS (irritable bowel syndrome) Low back pain Elevated [...] 10:28am Rhinitis December 02, 2024 10: 28am Chief Complaint Admit Date Allergy Shot January 30, 2025 10:20a m 4 mo f/u April 18, 2025 9:17 am Reason for Visit Admit Date Elevated cholesterol April 18, 2025 9:1 7am Essential (primary) hypertension April 182024 9:17am Gastroesophageal reflux dise ase with esophagitis without hemorrhage April 18, 2025 9:17am Lumbar spondylosis April 18, 2025 9:17 am Primary insomnia April 18, 2025 9:17 am Recurrent major depressive disorder, in full remission April 18, 2025 9:17am Screening mammogram for breast cancer Ju 2024 9:17am Wellness examination April 18, 2025 9:1 7am Chief Complaint Admit Date 4 mo f/u April 18, 2025 9:17 am Allergy Shot May 29, 2025 2:58pm Reason for Visit Admit Date Elevated cholesterol April 18, 2025 9:1 7am Essential (primary) hypertension April 182024 9:17am Gastroesophageal reflux dise ase with esophagitis without hemorrhage April 18, 2025 9:17am IFG (impaired fasting glucose) March 9:17am Lumbar spondylosis April 18, 2025 9:17 am Primary insomnia April 18, 2025 9:17 am Recurrent major depressive disorder, in full remission April 18, 2025 9:17am Screening mammogram for breast cancer Ju ly 2024 9:17am Wellness examination April 18, 2025 9:1 7am Additional Source Comments Patient Care team informatio [...] Status: Active Member Role Status Dates Segun Ball , DO Primary Care Provider Active Start: November 29, 2023 Ingrid Cazares RMAAttenjenni ProviderActiveStart: November 29, 2023 Team Status: Inactive Member Role Status Enedina Kingsley DO Primary Care Provide r, Attending Provider Active Start: December 19, 2023 End: December 19, 2023 Team Status: Inactive Member Role Status Enedina Kingsley DO Primary Care Provide r, Attending Provider Active Start: December 27, 2023 End: December 27, 2023 Team Status: Active Member Role Status Enedina Kingsley DO Primary Care Provider Active Start: February 08, 2024 Enrique Vásquez MDAdeisy ProviderActiveStart: February 08, 2024 Team Status: Inactive Member [...] Status: Active Member Role Status Enedina Kingsley DO Primary Care Provide r, Attending Provider Active Start: May 01, 2024 Team Status: Active Member Role Status Enedina Kingsley DO Primary [...] January 30, 2025 End: January 30, 2025 Team Status: Inactive Member Role Status Enedina Kingsley DO Primary Care Provider Active Start: January 30, 2025 End: January 30edu Kingsley DOAttending ProviderActiveStart: January 30, 2025 End: January 30, 2025 Team Status: Inactive Member Role Status Enedina Kingsley DO Primary Care Provider Active Start: April 18, 2025 End: April 18edu Kingsley DOAttending ProviderActiveStart: April 18, 2025 End: April 18, 2025 Team Status: Inactive Member Role Status Dates Segun Kingsley DO Primary Care Provider Active Start: May 29, 2025 End: May 29, 2025Mago Tan MDAttending ProviderActiveStart: May 29, 2025 End: May 29, 2025Team MemberRelationshipSpecialtyStart DateEnd Date Segun Kingsley DO PCP - GeneralInternal Odkgawkd58/7/23 REASON FOR VISIT (unrecogniz ed section and content) 3 month Follow upPossible Sp ider [phone] COVID +No Informationback painback painXR results6 monthCOVID + INFORMATION SOURCE (unrecogn ized section and content) DATE CREATED AUTHOR 01/27/2023 [facility] DATE CREATED AUTHOR AUTHOR'S ORGANIZ ATION 09/14/2023 [facility] EPIC DATE CREATED AUTHOR AUTHOR'S ORGANIZ ATION 05/07/2024 [facility] DATE CREATED AUTHOR AUTHOR'S ORGANIZ ATION 03/04/[address] [facility] DATE CREATED AUTHOR AUTHOR'S ORGANIZ ATION 03/05/[address] [facility] Goals (unrecognized section and content) [...] BE BASED ON THE PRIMARY CLINICAL RECORDS. [employer] provides no warranty or guarantee of the accuracy or completeness of information in this document.
--- NOTE | 2025-08-14 14:20 | PM.CN ---
Consult Note: HPI Data of Consult Patient: known to practice within the last 3 years Requesting Physician: Concetta Sharma NP Primary Care Provider: Segun Kingsley, DO Consult Narrative Reason for consult: low back pain Narrative: Elda Lee a pleasant 70 year old female presents for evaluation and management of low back and posterior hip pain. of note patient also had a fall this summer with increased left knee pain, pt concerned with abnormal lump to left knee, minimal pain at this time. Pain today 5/10 in low back and hips increasing to 10/10 with standing, walking, in the AM. notes improvement with heat. continues to engage in HEP as tolerated. utilizing tylenol prn and meloxicam 7.5mg bid prn without side effects cc:: CC: Concetta Sharma NP Review of Systems ROS Musculoskeletal Reports: back pain and joint pain PFSH PFSH Medical History Thyroid nodule ?E04.1 - Nontoxic single thyroid nodule (ICD-10) Low back pain ?M54.50 - Low back pain, unspecified (ICD-10) Osteoarthritis ?M19.90 - Unspecified osteoarthritis, unspecified site (ICD-10) Heartburn ?R12 - Heartburn (ICD-10) Kidney stones ?N20.0 - Calculus of kidney (ICD-10) Hypertension ?I10 - Essential (primary) hypertension (ICD-10) Surgical History H/O: hysterectomy ?Z90.710 - Acquired absence of both cervix and uterus (ICD-10) Meds Home Medications and Allergies Home Medications ?Medication ?Instructions ?Recorded ?Confirmed ?Type amlodipine 10 mg tablet 10 mg PO DAILY 10/04/23 10/31/23 History atorvastatin 40 mg tablet 40 mg PO DAILY 10/04/23 10/31/23 History baclofen 10 mg tablet 5 mg PO DAILY 10/04/23 10/31/23 History fluoxetine 40 mg capsule 40 mg PO DAILY 10/04/23 10/31/23 History hydrochlorothiazide 25 mg tablet 25 mg PO DAILY 10/04/23 10/31/23 History potassium chloride 20 mEq oral 50 meq PO DAILY 10/04/23 10/31/23 History packet (Klor-Con) temazepam 15 mg capsule 15 mg PO .QHS 10/04/23 10/31/23 History diazepam 10 mg tablet (Valium) 10 mg PO ONCE PRN sedation 10/26/23 10/31/23 Rx hours #1 tab meloxicam 7.5 mg tablet 7.5 mg PO BID 04/10/25 04/10/25 History Allergies Allergy/AdvReac Type Severity Reaction Status Date / Time No Known Drug Allergies Allergy Verified 10/31/23 08:16 Exam Constitutional Documenting provider has reviewed patient's vital signs: yes Common normals: no apparent distress, oriented x3 and alert General appearance: cooperative HENMT Common normals: normocephalic, hearing grossly normal bilaterally and moist oral mucous membranes Head and scalp: normocephalic Eye Common normals: PERRL Pupil: PERRL Neck & C-Spine Common normals: full ROM General: normal visual inspection Chest Common normals: inspection of chest normal Respiratory Common normals: normal respiratory effort, no retractions and no use of accessory muscles Back & Pelvis Lumbar spine/lower back: ROM limited, pain with ROM, lumbar spinal tenderness and straight leg raise negative bilaterally Sacroiliac joints: SI joint(s) abnormal Other: bilateral sij positive berenice(patricks), gaenslens, thigh thrust, compression test left greater than right Extremity Right lower extremity: knee joint Other: bone deformity noted to left tibula. no instability noted to left knee, mild edema. increased pain with medial and lateral stress testing. Neuro Common normals: oriented x3 Sensorium/orientation: alert Psych Common normals: mental status grossly normal, thought process normal, cooperative, affect normal, speech normal and activity/motor behavior normal Speech: normal speech Thought process: normal thought process Results Additional Findings Additional findings: If on a controlled substance or opioids, I have checked an [place] report on this patient and there are no aberrancies noted in the prescribing history.??If on a controlled substance or opioid a drug screen was completed and reviewed within the last year, and if there has not been a drug screen completed we ordered one today to monitor higher risk, state monitored pain medication use. As part of providing excellent, safe, comprehensive care, the following was completed at our patient's visit: 1. A medication reconciliation and review to ensure accurate knowledge of current/active medications, including asking our patients to inform us about any cblz-xnu-xfizjom medications or herbal remedies/nutritional supplements/alternative remedies. 2. A review to specifically ensure our patients have had annual screening for screening for depression, screening for tobacco use, and screening for unhealthy alcohol use. For concerning screenings had a discussion with the patient, provided patient education, and recommended follow-up with primary care provider when appropriate. If patient noted with a risk of falling, they received education on strength, gait, and balance training to prevent future risk of falling. Portions of this note may have been carried over from the previous visit and updated as appropriate. Please note this office utilizes paper charting in addition to the electronic medical record. A list of current medications, vitals, and PMH is available there as the clinical staff outside of myself do not have access to [employer] charting during the clinic day operations. As part of providing quality comprehensive care the current medications, vitals, and PMH were reviewed in the paper chart. Assessment and Plan Assessment and Plan (1) Sacroiliitis: (2) Left knee pain: Plan The patient has had over 3 months of moderate to severe low back and bilateral SIJ pain with functional impairment and inadequate response to conservative care including NSAIDS (unless there are contraindication such as concurrent blood thinners), multiple oral or topical pain medications, and home exercise program/physical therapy.? Patient has completed >6 weeks of guided home exercise program and/or formal physical therapy program without relief of their symptoms.? I have reviewed the imaging of the lumbar spine and no red flags were identified.? The Oswestry Disability Index was completed, and the patient scored a 22%.? bilateral SIJ injection under fluoroscopy update left knee xray to rule out prior left knee tib fracture and assess left knee pain per patient request. defer orthopedic consult at this time continue HEP as tolerated f/u after injection
== END 2025-08-14 13:47 | disposition home or self-care (01) ==
LOC: PM 13:47
PROVIDERS: PCP Internal Medicine; Visit Provider Nurse Practitioner
DX: M46.1 Sacroiliitis, not elsewhere classified (principal); M25.562 Pain in left knee
CPT/HCPCS: G0463

== ENCOUNTER 2025-08-14 14:41 | Outpatient (OUT) | payer OTHER, SELFPAY ==
--- OUTSIDE RECORDS SUMMARY | 2025-08-14 14:45 | XMS_ITS | Clinical Summary ---
Author Organization [facility] Address [address] [place] [address] Care Team Providers Care Protohistorian Name Role Phone Segun Kingsley DO Primary Care Provider [phone] Allergies No known active allergies Medications MedicationSigDispense [...] same timeActive Active Problems ProblemNoted DateDiagnosed DateThyroid njmqgz5509/07/20237425Lwonjneehwkf50/14/2023 Depression with rfeeqyk4109/07/20234517Peakrv41/14/2023hronic back pain09/07/2023 Irritable bowel syndrome with rabttelnprmv12/14/2023Lumbar gtszxplvusi67/14/2023 Family History Medical HistoryRelationNameCommentsHeart failureFatherCancerMotherHypertension MotherHeart failurePaternal GrandfatherRelationNameStatusCommentsFatherMother Paternal Grandfather Social History Tobacco UseTypesPacks/DayYears UsedDateSmoking Tobacco: NeverSmokeless Tobacco: Never Tobacco Cessation:Counseling Given: Not Answered Alcohol UseStandard Drinks/WeekCommentsNot Currently0 (1 standard drink = 0.6 oz pure alcohol)CommentsUnknownSex and Gender InformationValueDate Recorded Sex Assigned at BirthNot on fileLegal MbcHzcvet62/15/2023 6:37 PM EDTGender IdentityNot on fileSexual OrientationNot on file Last Filed Vital Signs Vital SignReadingTime TakenCommentsBlood Uefenzbs100/6909/13/2023 11:08 AM EST Pulse--Temperature--Respiratory Rate--Oxygen Saturation--Inhaled Oxygen Concentration--Xdawat31.5 kg (151 lb)09/14/2022 12:00 PM FLQNksuus678.6 cm (5' 4 )09/14/2022 12:00 PM ESTBody Mass Index25.9209/14/2022 12:00 PM EST Plan of Treatment Not on file Insurance * Guarantor: Zaria Corona TypeRelation to PatientDate of BirthPhone Billing AddressPersonal/DsxuldHbjc1955 [id number] [address] Care Teams Team MemberRelationshipSpecialtyStart DateEnd Date Segun Kingsley DO PCP - GeneralInternal Nuhxkjfl25/7/23
--- NOTE | 2025-08-14 14:49 | XR_ITS ---
[facility] [place] [id number] Patient Name: MIK CORONA MRN: [id number] date: 1955 Sex: F Assigned Patient Location: [facility] Current Patient Location: [facility] Accession/Order Number: [id number] Exam Date: 08/14/2025 15:10 Report Date: 08/14/2025 22:56 At the request of: RODRIGO MONTESINOS RECREATION ASSISTANT Procedure: XR knee LT 4V 4 views left knee HISTORY: Fell 5 months ago. Continued left knee pain. Adequate bony alignment without acute displaced fracture or joint effusion. XR/XR knee LT 4V IMPRESSION: No acute displaced fracture. Impression dictated by: Victor Manuel Trejo M.D. 08/14/2025 10:56 PM Dictation Location: [place] [address] Electronically authenticated by: [id number] Y Date: 08/14/2025 22:56
--- OUTSIDE RECORDS SUMMARY | 2025-08-14 14:50 | XMS_ITS | CCD ---
Author Organization [facility] Care Team Providers Care Contract Technician Name Role Phone SEGUN KINGSLEY Primary Care Physician [phone] Segun Kingsley VÁSQUEZ ., DR RENEE Attending [...] Unavailable Segun Kingsley DO Primary Care Provider [phone] Sancho LEUNG, Segun Attending Provider Segun Kingsley DO Primary Care Provider [phone] Segun Kingsley DO Attending Provider Mago Tan MD Attending Provider [phone] Segun Kingsley DO Primary Care Provider Allergies Allergy ClassificationReported Allergen(s)Allergy TypeDate of OnsetReaction(s) Facility (2 sources)patient allergy list reviewed by nurse or physiciaPropensity to adverse bvceaivwo08-64-4009Dfkndkq:[employer] Other (2 sources)No Known Medication Allergies; Translations: [No Known Medication Allergies]Propensity to adverse reactions (disorder)[facility] Repository Medications Current Medications MedicationDrug Class(es)DatesSig (Normalized)Sig (Original)acetaminophen 500 mg oral tablet (4 sources)Start: 18-10-5208uhju 500 mg by mouth twice dailyTylenol 500 mg, Oral, BID Start Date: 05/05/21 Status: Ordered Repeat number: [id number] 60 actuat albuterol 0.09 mg/actuat metered dose inhaler (12 sources)beta2-Adrenergic AgonistStart: 86-62-2589bxfm 2 puff(s) by inhalation every four hours as neededStart: 07-67-8163cdds 2 puff(s) by inhalation every four hours as neededAlbuterol Sulfate HFA 108 (90 Base) MCG/ACT 2 puffs as needed Inhalation every 4 hrs Oct, Not-TakingStart: 92-54-6936Sfmrv: 35-56-5126ivrq 2 puff(s) by inhalation every four hours as neededAlbuterol Sulfate HFA 108 (90 Base) MCG/ACT 2 puffs as needed Inhalation every 4 hrs Oct, Not-TakingamLODIPine 10 mg oral tablet (20 sources)Dihydropyridine Calcium Channel BlockerStart: 96-19-2453guzb 1 tablet by mouth once dailyStart: 12-18-2023 End: 80-39-7904pjmc 1 tablet by mouth once dailyAmlodipine 10 mg tablet Discontinued 10 MG PO Daily April 15, 2024 2:43pm April 24, 2025 5:27pm Start: 13-70-9384qhlt 1 tablet by mouth once dailyamLODIPine 5 mg Tab 5 mg = 1 tab(s), Oral, Daily Start Date: 05/05/21 Status: Ordered Repeat number:1take 1 tablet by mouth once dailyatorvastatin 40 mg oral tablet (20 sources)HMG-CoA Reductase InhibitorStart: 58-60-6206kbju 1 tablet by mouth once daily in the eveningStart: 11-29-2023 End: 63-68-5722woxn 1 tablet by mouth once daily in the eveningAtorvastatin 40 mg tablet Discontinued 0 .ROUTE .COMPLEX November 29, 2023 10:55pm April 1542:47pm TAKE ONE TABLET BY MOUTH ONCE DAILY IN THE EVENINGStart: 11-29-2023 End: 88-79-5888ckxg 1 tablet by mouth once daily in the eveningAtorvastatin Discontinued 0 .ROUTE .COMPLEX November 29, 2023 10:55pm April 15, 2024 2:47pm TAKE ONE TABLET BY MOUTH ONCE DAILY IN THE EVENINGStart: 05-71-3972ldkw 1 tablet by mouth once daily in the eveningAtorvastatin Active 0 .ROUTE .COMPLEX November 29, 2023 10:55pm TAKE ONE TABLET BY MOUTH ONCE DAILY IN THE EVENINGStart: 05-05-2021 End: 23-07-4997yghz 1 tablet by mouth once dailyAtorvastatin 40 mg tablet Discontinued 40 MG PO Daily April 15, 2024 2:43pm November 21, 2024 10:47pmazelastine hydrochloride 0.137 mg/actuat metered dose nasal spray (20 sources)Histamine-1 Receptor AntagonistStart: 19-26-4240htye 1 puff(s) nasal route twice dailytake 1 puff(s) nasal route twice dailyAzelastine HCl 137 MCG/SPRAY 1 puff in each nostril Nasally Twice a day Activecalcium carbonate 1500 mg oral tablet (4 sources)Start: 14-84-2078vlfm 1 tablet by mouth twice dailycalcium (as carbonate) 600 mg oral tablet 600 mg = 1 tab(s), Oral, BID Start Date: 05/05/21 Status: Ordered Repeat number: 1FLUoxetine 40 mg oral capsule (20 sources)Serotonin Reuptake InhibitorStart: 09-26-2024 End: 52-99-2091mtfa 1 capsule by mouth once dailyStart: 03-29-2024 End: 24-73-0062kxkb 1 capsule by mouth once dailyFluoxetine 40 mg capsule Discontinued 0 .ROUTE .COMPLEX March 29, 2024 8:44am April 15, 2024 2:47pm TAKE ONE CAPSULE BY MOUTH ONCE DAILYStart: 05-05-2021 End: 81-25-6277uevc 1 capsule by mouth once dailyFluoxetine 40 mg capsule Discontinued 40 MG PO Daily April 15, 2024 2:44pm September 26:55pm fluticasone propionate 0.05 mg/actuat metered dose nasal spray (12 sources)CorticosteroidStart: 25-25-1841ivdu 1 spray(s) nasal route once dailyStart: 59-07-8855qdfs 1 spray(s) nasal route once dailyFluticasone Propionate 50 MCG/ACT 1 spray in each nostril Nasally Once a day for 21 days Oct, Not-TakingStart: 71-37-1234bqkigIRJHHGktsjetva 12.5 mg oral capsule (20 sources)Thiazide DiureticStart: 03-03-2025 End: 74-65-6963lpvs 1 capsule by mouth once dailyhydrochlorothiazide 12.5 mg Cap 12.5 mg = 1 cap(s), Oral, Daily, X 90 day(s), # 90 cap(s), Refills(s) 3, Pharmacy: [facility], 163, cm, 03/03/25 11:35:00 EDT, Height/Length Dosing, 67, kg, 03/03/25 11:35:00 EDT, Weight Dosing Start Date: 03/03/25 Stop Date: 02/26/26 Status: Ordered Quantity: 90.0 Unit: cap(s) Repeat number: 4Start: 86-08-8079Ajurs: 10-19-9298gwxa 12.5 mg by mouth once dailyHydrochlorothiazide Active 12.5 MG PO Daily April 15, 2024 2:42pmStart: 06-08-2022 End: 71-57-3412lodq 1 tablet by mouth once dailyHydrochlorothiazide 25 mg tablet Discontinued 25 MG PO Daily December 18, 2023 12:00am April 15, 2024 2:47pm Lisinopril (12 sources)Angiotensin Converting Enzyme InhibitorLisinopril Not-Taking/PRN Lisinopril Not-TakingmethylPREDNISolone 4 mg oral tablet (12 sources)CorticosteroidStart: 09-68-9863Rvhng: 40-25-9190yjoqauhkzc 40 mg delayed release oral capsule (20 sources)Proton Pump InhibitorStart: 28-28-7728inky 1 capsule by mouth once daily at breakfastStart: 10-18-2021 End: 74-46-4870ucsm 1 capsule by mouth once daily at breakfastOmeprazole 40 mg capsule,delayed release(DR/EC) Discontinued 40 MG PO Daily April 15, 2024 2:44pm October 23, 2024 7:04pm ON AN EMPTY STOMACH, FOLLOWED IN 30 MINS BY BREAKFASTpaxlovid (300/100) 20 x 150 mg & 10 x 100mg tablet therapy pack (2 sources)Start: 14-78-5000rztg 3 tablets by mouth every twelve hoursPaxlovid (300/100) 20 x 150 MG & 10 x 100MG 3 tablets Orally Twice a day for 5 days Sep, ActiveStart: 18-51-0271Jtnncwwq (300/100) 20 x 150 MG & 10 x 100MG as directed Orally bid for 5 days Jun, ActivePotassium Bicarb & Chloride (12 sources)Potassium Bicarb & Chloride 20 MEQ packet daily ActivePotassium Bicarb And Chloride (7 sources)Start: 42-84-6847Erchzpnyg Bicarb And Chloride Active 1 PACKET PO Daily December 18, 2023 12:00amPotassium Bicarb And Chloride 20 mEq packet (5 sources)Start: 18-81-9417dirz 20 mEq by mouth once dailyStart: 88-20-8218ntnx 20 mEq by mouth once dailyPotassium Bicarb And Chloride 20 mEq packet Active 1 PACKET PO Daily December 18, 2023 12:00am Complies with drug therapyStart: 49-07-2884utid 20 mEq by mouth once dailyPotassium Bicarb And Chloride 20 mEq packet Active 1 PACKET PO Daily December 18, 2023 12:00amStart: 95-64-2383oozb 20 mEq by mouth once dailyPotassium Bicarb And Chloride 20 mEq packet Active 1 PACKET PO Daily December 17, 2023 11:00pmtiZANidine (12 sources)Central alpha-2 Adrenergic AgonisttiZANidine HCl Not-Taking/PRN tiZANidine HCl Not-TakingtraMADol (12 sources)Opioid AgonisttraMADol HCl Not-Taking/PRNtraMADol HCl Not-Taking triamcinolone acetonide 0.005 mg/mg topical ointment (20 sources)CorticosteroidStart: 48-35-3452Dnlea: 98-87-5755Zmmfiomtgldyr Acetonide 0.5 % ointment Active 1 APPLIC TOPICAL Twice daily 45 July 262:00amStart: 48-45-4170Pzhjdqlrqrbps Acetonide 0.5 % ointment Active 1 APPLIC TOPICAL Twice daily 45 July 251:00pmStart: 07-26-2024 Triamcinolone Acetonide Active 1 APPLIC TOPICAL Twice daily 45 July 26, 2024 12:00amStart: 28-83-0862Hqkzcqlkvzhvn Acetonide 0.025 % 1 application Externally twice daily as needed for 14 days ActiveVitamin D3 (4 sources)Start: 35-22-0249Pnijxnk D3 1,000 International_Unit, Oral, Daily Start Date: 05/05/21 Status: Ordered Repeat number:1Start: 48-74-3943Wcqeqkb D3 1,000 International_Unit, Oral, Daily Start Date: 05/05/21 Status: Ordered{20 (nirmatrelvir 150 MG Oral Tablet) / 10 (ritonavir 100 MG Oral Tablet) } Pack [Paxlovid 5-Day] (1 source)Start: 22-20-8115Gjvsstbw (300/100) 20 x 150 MG & 10 x 100MG as directed Orally bid for 5 days Jun, Active Completed/Discontinued Medications MedicationDrug Class(es)DatesSig (Normalized)Sig (Original)potassium bicarbonate 25 meq effervescent oral tablet (4 sources)Start: 04-24-2024 End: 90-12-4509ptyf 1 tablet by mouth twice dailyKlor-Con/EF 25 mEq oral tablet, effervescent 25 mEq = 1 tab(s), Oral, BID, X 90 day(s), # 180 tab(s), Refills(s) 3, Pharmacy: [facility]/pharmacy #[id number], 163, cm, 02/20/24 14:56:00 EDT, Height/Length Dosing,68.1, kg, 02/20/24 14:56:00 EDT, Weight Dosing Start Date: 04/24/24 Stop Date: 04/19/25 Status: Ordered Quantity: 180.0 Unit: tab(s) Repeat number: 4 Start: 56-16-1180rpjj 1 tablet by mouth twice dailyKlor-Con/EF 25 mEq oral tablet, effervescent 25 mEq = 1 tab(s), Oral, BID, # 60 tab(s), Refills(s) 11, Pharmacy: [facility]/pharmacy #[id number], 163, cm, 02/13/23 14:27:00 EDT, Height/Length Dosing, 70, kg, 02/13/23 14:27:00 EDT, Weight Dosing Start Date: 04/10/23 Status: OrderedStart: 97-78-7982krrj 1 tablet by mouth twice dailyEffer-K 25 mEq oral tablet, effervescent 25 mEq = 1 tab(s), Oral, BID, # 60 tab(s), Refills(s) 8, Ph armacy: [facility], 163, cm, 10/18/21 11:50:00 EST, Height/Length Dosing, 70, kg, 10/18/21 11:50:00 EST, Weight Dosing Start Date: 10/18/21 Status: OrderedpredniSONE 20 mg oral tablet (6 sources)Start: 07-26-2024 End: 87-38-6162Pxydloeqzm 20 mg tablet Discontinued 20 MG PO .COMPLEX 15 July 26, 2024 12:00am September 24, 2024 11:48am 20mg bid w/ food x 5 days then qd w/ food x 5 daystemazepam 15 mg oral capsule (20 sources)BenzodiazepineStart: 05-05-2021 End: 16-49-4469puqw 1 capsule by mouth once daily at bedtime as neededTemazepam 15 mg capsule Discontinued 15 MG PO Daily at bedtime as needed for insomnia April 15, 2024 2:46pm September 06, 2024 5:06pm Problems Active Problems Problem ClassificationProblemDateDocumented DateEpisodic/ChronicAbdominal pain (20 sources)Flank pain; Translations: [Epigastric pain]Onset: 03-04-2015 09-48-3389OcwwjpciVojgm bronchitis (14 sources)Acute bronchitis; Translations: [Acute bronchitis, unspecified] Onset: 87-16-8087YbuffhytFqzaksax reactions (13 sources)Contact dermatitis; Translations: [Contact dermatitis and other eczema, due to unspecified cause]Onset: 629385-69-0325ByvxiesaPchmytq disorders (20 sources)Generalized anxiety disorder; Translations: [Generalized anxiety disorder]Onset: 037564-38-9574UhsziktGlvihsvi of urinary tract (20 sources)Kidney stone; Translations: [Calculus of kidney]Onset: 07-13-2022 EpisodicCardiac dysrhythmias (13 sources)Tachycardia; Translations: [Tachycardia, unspecified]Onset: 22-59-9826IscxacziTfoidbia mellitus without complication (8 sources)Impaired fasting glycemia; Translations: [Impaired fasting glucose] 62-13-7649ZykmiehpOmzcxcpe of white blood cells (7 sources)Leukocytosis; Translations: [Elevated white blood cell count, unspecified]21-62-0146LahgobgOyyikstvm of lipid metabolism (20 sources)Hyperlipidemia; Translations: [Hypercholesterolemia]05-05-2021 ChronicDiverticulosis and diverticulitis (9 sources)Diverticulosis of sigmoid colon; Translations: [Diverticulosis of large intestine without perforation or abscess without bleeding]ChronicE Codes: Natural/environment (1 source)Bitten or stung by nonvenomous insect and other nonvenomous arthropods, initial encounterEpisodicEsophageal disorders (20 sources)Gastro-esophageal reflux disease with esophagitis; Translations: [Gastroesophageal reflux 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]Onset: 236207-06-5889DykfauwNmsahxbex hypertension (20 sources)Hypertensive disorder; Translations: [Essential hypertension]Onset: 649394-98-3980BxmwmroPbeeh and electrolyte disorders (20 sources)Hypokalemia; Translations: [Hypokalemia]Onset: 72-08-2004Bjwlpymt Fracture of lower limb (3 sources)Fracture of unspecified metatarsal bone(s), right foot, initial encounter for closed fracture; Translations: [Closed fracture of metatarsal bone(s)]07-74-7649LyvdmgyaClgqcwxbmrbqd symptoms and ill-defined conditions (20 sources)Microscopic hematuria; Translations: [Dysuria]Onset: 09-09-2016 32-25-3342CqinypukLtqmlnktdotfe and screening for infectious disease (7 sources)Vaccination given; Translations: [Encounter for immunization]Episodic Inflammation; infection of eye (except that caused by tuberculosis or sexually transmitteddisease) (9 sources)Acute atopic conjunctivitis; Translations: [Acute atopic conjunctivitis, bilateral]EpisodicMalaise and fatigue (20 sources)Fatigue; Translations: [Other fatigue]Onset: 18-97-2062Nwranfhf Miscellaneous mental health disorders (17 sources)Globus sensation; 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] 67-08-8630EevmbelNseh disorders (20 sources)Single episode of major depression in full remission; Translations: [Major depressive disorder, single episode, in full remission]Onset: 09-25-1959 ChronicOsteoarthritis (4 sources)Lehlvbegm07-22-0199PnezwauFdekpcsahxou (15 sources)Osteoporosis; Translations: [Age-related osteoporosis without current pathological fracture]31-17-2888ZtdpyvmIaudg circulatory disease (7 sources)Cardiovascular symptoms; Translations: [Other specified symptoms and signs involving the circulatory and respiratory systems]EpisodicOther congenital anomalies (7 sources)Congenital spondylolysis of lumbosacral region; Translations: [Congenital spondylolysis, lumbosacral region]Onset: 36-15-6750EyrhgzpTfcds connective tissue disease (4 sources)Plantar fascial fibromatosis; Translations: [Plantar fascial fibromatosis]20-80-7451OshwwkvgIgroi connective tissue disease (4 sources)Pain in right foot; Translations: [Pain in limb]28-93-0789Wtmtlrsx Other diseases of kidney and ureters (3 sources)Hydronephrosis due to ureteral mgepmvvnfcx79-22-2387RagyvwngVhlvq diseases of veins and lymphatics (5 sources)Venous insufficiency of leg; Translations: [Venous insufficiency (chronic) (peripheral)]56-92-6294UezrlgmrGdvto diseases of veins and lymphatics (1 source)Venous insufficiency (chronic) (peripheral); Translations: [Venous (peripheral) insufficiency, unspecified]43-02-7315HbbuiwdpGpdrj ear and sense organ disorders (7 sources)Conductive hearing loss, bilateral; Translations: [Conductive hearing loss, bilateral]Onset: 48-97-7599PwnemvfUoqqv ear and sense organ disorders (14 sources)Impacted cerumen; Translations: [Impacted cerumen, bilateral]Onset: 28-79-5213VwfoydtzCnjei gastrointestinal disorders (20 sources)Irritable bowel syndrome characterized by constipation; Translations: [Irritable bowel syndrome with constipation]Onset: 09-07-2023 96-27-4077DdiqdxfLkyxk gastrointestinal disorders (7 sources)Irritable bowel syndrome with diarrhea; Translations: [Irritable bowel syndrome with diarrhea]Onset: 25-34-4706VittcwlUbkds gastrointestinal disorders (15 sources)Irritable bowel syndrome; Translations: [Irritable bowel syndrome] 76-56-1278UxzpqsfQamjv gastrointestinal disorders (2 sources)Irritable bowel syndrome without diarrhea; Translations: [Irritable bowel syndrome]05-11-0667WbezhlsSpjkz gastrointestinal disorders (1 source)Change in bowel habit; Translations: [Other symptoms involving digestive system]13-00-0866AmjkctrkKgmtt injuries and conditions due to external causes [...] and metabolic disorders (1 source)Hypercalcemia; Translations: [HYPERCALCEMIA]Onset: 72-26-1470Kebwlcc Other screening for suspected conditions (not mental disorders or infectious disease) (7 sources)Imaging of genitourinary system abnormal; Translations: [Nonspecific (abnormal) findings on radiological and other examination of genitourinary organs]Onset: 88-04-7060SphvrrlKftsc screening for suspected conditions (not mental disorders or infectious disease) (20 sources)Encounter for screening mammogram for malignant neoplasm of breast; Translations: [Encounter for screening for diseases of the blood and blood- forming organs and certain disorders involving the immune mechanism]Onset: 03-31-2015 Resolved: 49-10-1277EayvyurjQwtwi upper respiratory disease (7 sources)Vasomotor rhinitis; Translations: [Vasomotor rhinitis]ChronicOther upper respiratory disease (7 sources)Seasonal allergic rhinitis; Translations: [Other seasonal allergic rhinitis]Onset: 08-11-0102HfuvdeqNenqu upper respiratory disease (19 sources)Allergic rhinitis due to pollen; Translations: [Allergic rhinitis due to pollen]63-09-8738PvbppkkTshjy upper respiratory disease (1 source)Chronic rhinitis; Translations: [Chronic rhinitis]95-46-4082Pcasvgu Other upper respiratory infections (7 sources)Chronic sinusitis; Translations: [Chronic sinusitis, unspecified] ChronicOther upper respiratory infections (20 sources)Acute pharyngitis; Translations: [Acute pharyngitis due to other specified organisms]Onset: 59-18-3498QzuahoqgBpljsdge codes; unclassified (12 sources)Insomnia; Translations: [Insomnia, unspecified]EpisodicResidual codes; unclassified (7 sources)Postmenopausal state; Translations: [Asymptomatic menopausal state] EpisodicSpondylosis; intervertebral disc disorders; other back problems (20 sources)Spondylitis; 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, lumbar region]Onset: 39-41-4413FdaglrwTjiouuaghzd injury; contusion (1 source)Insect bite (nonvenomous) of unspecified part of head, initial encounterEpisodicSyncope (10 sources)Syncope and collapse; Translations: [Syncope and collapse]Onset: 84-12-4530GiddgpezZbbaixj disorders (20 sources)Cyst of thyroid; Translations: [Nontoxic single thyroid nodule] Onset: 57-49-8893PwqvhswFwonjvrrrsge (3 sources)CONTACT W/AND (SUSP) EXPOS COVID-19; Translations: [CONTACT W/AND (SUSP) EXPOS COVID-19]Onset: 83-11-0225Fojaiacpsqnw (7 sources)Exposure to acute respiratory syndrome coronavirus 2; Translations: [Contact with and (suspected) exposure to COVID-19]Unclassified (3 sources)Urine udgcwax92-18-1945 Past or Other Problems Problem ClassificationProblemDateDocumented DateEpisodic/ChronicBacterial infection; unspecified site (14 sources)Methicillin resistant Staphylococcus aureus infection; Translations: [Methicillin resistant Staphylococcus aureus infection, unspecified site]Onset: 71-94-3240SlyqgzknDcnctcadfa and other anemia (1 source)Anemia; Translations: [Anemia, unspecified]Onset: EpisodicEsophageal disorders (3 sources)Esophageal disordersGastritis and duodenitis (7 sources)Acute gastritis; Translations: [Acute gastritis without mention of hemorrhage]Onset: 75-43-7579TwhhqpogBpwmafug; including migraine (7 sources)Headache; Translations: [Headache, unspecified]Onset: 02-23-2015 EpisodicNausea and vomiting (7 sources)Nausea; Translations: [Nausea]Onset: 87-20-5851FsbvwzdqFgtruakvngc chest pain (18 sources)Chest pain, unspecified; Translations: [Chest pain]Onset: 07-05-2016 EpisodicOther aftercare (1 source)Other salvage determiner (current) drug therapy; Translations: [OTH SPRING CRATER CURRENT DRUG THERAPY]Onset: 06-38-6591AhcvawfjMpoks aftercare (7 sources)Surgical follow-up; Translations: [Follow-up examination, following unspecified surgery]Onset: 66-59-4742ObpacgysQmano connective tissue disease (7 sources)Muscle pain; Translations: [Unspecified myalgia and myositis]Onset: 58-16-2207TiiwiffhYoljs disorders of stomach and duodenum (7 sources)Disorder of function of stomach; Translations: [Dyspepsia and other specified disorders of functionof stomach]Onset: 65-23-2479QmaahkniBidlh gastrointestinal disorders (7 sources)Heartburn; Translations: [Heartburn]Onset: 35-70-5825EbxrsmuwZxovf gastrointestinal disorders (7 sources)Diarrhea; Translations: [Diarrhea]Onset: 96-07-5230GxuxfjarNepaj gastrointestinal disorders (7 sources)Pharyngeal dysphagia; Translations: [Dysphagia, pharyngoesophageal phase]Onset: 99-30-3548KzxeulqiDpkuo gastrointestinal disorders (7 sources)Flatulence, eructation and gas pain; Translations: [Abdominal distension (gaseous)]Onset: 33-89-6657JfliyjwgJpgdm lower respiratory disease (7 sources)Cough; Translations: [Cough, unspecified]Onset: 56-97-8952Dcysgdmg Other nutritional; endocrine; and metabolic disorders (9 sources)Loss of appetite; Translations: [Anorexia]Onset: 87-89-2043Qeqzgmgn Other nutritional; endocrine; and metabolic disorders (7 sources)Overweight; Translations: [Overweight]Onset: 51-06-6797YkqalkakAelbl nutritional; endocrine; and metabolic disorders (14 sources)Body mass index 25-29 - overweight; Translations: [Body mass index 27.0-27.9, adult]Onset: 44-87-1844ScgipwmnJnrje nutritional; endocrine; and metabolic disorders (7 sources)Abnormal weight loss; Translations: [Abnormal weight loss]Onset: 11-94-7327WgznwdujHboju skin disorders (7 sources)Inflamed seborrheic keratosis; Translations: [Inflamed seborrheic keratosis]Onset: 71-35-7515FtkalwluQoljt skin disorders (7 sources)Sebaceous cyst; Translations: [Sebaceous cyst]Onset: 06-24-2015 EpisodicOther skin disorders (7 sources)Generalized hyperhidrosis; Translations: [Generalized hyperhidrosis] Onset: 68-80-8813FvrnspcfSnrvzy media and related conditions (14 sources)Otitis media; Translations: [Unspecified otitis media]Onset: 48-67-3561VmkxvnmbGaigkuo cyst (7 sources)Cyst of ovary; Translations: [Other and unspecified ovarian cyst] Onset: 10-14-2009 Resolved: 65-02-6667WkjbuhniLvxyicxs codes; unclassified (1 source)Localized edema; Translations: [LOCALIZED EDEMA]Onset: 02-02-2022 EpisodicResidual codes; unclassified (7 sources)C/O - a back symptom; Translations: [Other symptoms referable to back]Onset: 37-25-7152JsbjjdugAjkeqpwk codes; unclassified (7 sources)Requires influenza virus vaccination; Translations: [Need for prophylactic vaccination and inoculation, Influenza]Onset: 21-70-7057Rjchnfzd Residual codes; unclassified (7 sources)Flushing; Translations: [Flushing]Onset: 42-60-5667EihmkihhUcxc and subcutaneous tissue infections (7 sources)Carbuncle of neck; Translations: [Carbuncle of neck] Resolved: 01-08-2887ChkuwderIqhugenbflu; intervertebral disc disorders; other back problems (20 sources)Sciatica; Translations: [Lumbago with sciatica, left side]Onset: 891550-61-8819FclzmjdwYkkxshd and strains (7 sources)Low back strain; Translations: [Strain of muscle, fascia and tendon of lower back, initial encounter]Onset: 80-25-8857JfbocrbeQkuhrgcodkwa (1 source)Vaccine counseling Z71.85Unclassified (1 source)CONTACT W/AND (SUSP) EXPOS COVID-19; Translations: [CONTACT W/AND (SUSP) EXPOS COVID-19]Onset: 33-16-8213Jnyhsreypuah (2 sources)Acute bilateral low back pain without sciatica M54.50Unclassified (4 sources)Acute bilateral low back pain without sciatica; Translations: [Acute bilateral low back pain without sciatica]Urinary tract infections (7 sources)Acute cystitis; Translations: [Acute cystitis without hematuria] Onset: 06-55-3973EtcvfdpjNcmrq infection (2 sources)COVID-19 Results Test NameValueInterpretationReference RangeFacilityAmbulatory Visit Summaryon 61-04-9152Fmyzusryzf Visit SummaryAmbulatory Visit Summary ZARIA CORONA :1955 [...] Enrique VÁSQUEZ MD Where: [facility] [address] [place] [address]- You Need to Schedule the Following Appointments Follow Up with Enrique VÁSQUEZ MD, URL When: Where: [facility] [address], [place] [address]- Medications What How Much When Instructions Unchanged [...] ? 8 oz (237 mL) of milk, hqvwcpi-wgvzkbmbxakq-agkrk milk, and calcium- fortifiedfruit juice. Calcium-fortified means [...] g) can of sa (more content not included)...[facility] SummaryAmbulatory Visit Summary ZARIA CORONA :1955 [...] [facility] [address], [place] [address]- Medications What How Much When Instructions Unchanged [...] ? 8 oz (237 mL) of milk, glrlnvj-qmsayhxmeewf-doeev milk, and calcium- fortifiedfruit juice. 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 U 24hr Ca 340 H. Citric acid 335 L. Taking Effer-K 25 mEq bid. Cont wo changes. Follow-up With When Contact Information MARCY GRESHAM, Enrique Layne, URL [facility] [address], [place] [address]- Additional Instructions: 1 yr with KUB and [...] acel/tetanus adult 04 (more content not included)...Normal [facility] HospitalComment on above:Result Comment: Electronically Signed By: Enrique VÁSQUEZ MD\.br\Date and Time Signed: 03/03/25 12:14 EDT\.br\Electronically Co-Signed By: Selma Allen\.br\Date and Time Co- Signed: 03/03/25 12:09 EDTInfluenza virus B Ag [Presence] in Upper respiratory specimen by Rapid immunoassayon 65-09-4072HAJFO Ag IA.rapid Ql (Nph)Influenza virus B Ag [Presence] in Upper respiratory specimen by Rapid immunoassay [facility] CenterNo Panel Informationon 38-11-9038Fhzwqcfyh Type A (Rapid)NegativeBarney Children'S Medical CenterPOC SARS CoV-2 Antigen NegativeBarney Children'S Medical CenterBasophils Auto (Bld) [#/Vol]on 27-84-4478Hgvmedwiq (Bld) [#/Vol]Automated basophil count0.0-0.1FUniversity Hospitals Geneva Medical CenterBasophils/100 WBC Auto (Bld)on 11-45-0587Qmqpirshj/100 WBC (Bld)Automated basophil %0.2-2.0[facility] Eosinophils/100 WBC Auto (Bld)on 89-79-8955Ugffvrgenbz/100 WBC (Bld)Automated eosinophil %0.9-7.0[facility] CenterErythrocyte distribution width Auto (RBC) [Ratio]on 38-08-9946Gmpnamwzrom distribution width (RBC) [Ratio]Erythrocyte distribution width [Ratio] by Automated count11.0-15.0 [facility] CenterEstimated glomerular filtration rate (GFR) non- Americanon 13-31-2261SBL/1.73 sq M.predicted among non-blacks MDRD (S/P/Bld) [Vol rate/Area]Estimated glomerular filtration rate (GFR) non->=60 mL/min/1.73m 2FUniversity Hospitals Geneva Medical CenterGlobulin Calc (S) [Mass/Vol]on 42-76-0233Mrtknvxp (S) [Mass/Vol]Serum globulin measurement by calculation (mass/volume)[facility] CenterHematocrit Auto (Bld) [Volume fraction]on 03-55-5443Rlbkfdislg (Bld) [Volume fraction]Hematocrit [Volume Fraction] of Blood by Automated count36.0-48.0[facility] Medical CenterHemoglobin [Mass/volume] in Bloodon 83-91-5420Oqtsdsqskj (Bld) [Mass/Vol] Hemoglobin [Mass/volume] in Blood12.0-16.0[facility] Laboratory - Chemistry and Chemistry - challengeon 45-13-7608Xcadczk [Mass/Vol] 3.5 g/dL3.4-5.0[facility] CenterALP [Catalytic activity/Vol]167 U/LGpzi58-815MhimxtowoBarney Children'S Medical CenterALT [Catalytic activity/Vol]43 U/L 14-59[facility] CenterAmylase [Catalytic activity/Vol]44 U/L 25-115[facility] Medical CenterAST [Catalytic activity/Vol]29 U/L15-37 [facility] CenterBilirubin [Mass/Vol]0.4 mg/dL0.2-1.0[facility] CenterCalcium [Mass/Vol]9.2 mg/dL8.5-10.1FUniversity Hospitals Geneva Medical CenterChloride [Moles/Vol]102 mmol/L48-715YjnodwvwoBarney Children'S Medical CenterCO2 [Moles/Vol]27.8 mmol/L21.0-32.0[facility] Creatinine [Mass/Vol]0.84 mg/dL0.55-1.02[facility] GFR/1.73 sq M.predicted MDRD (S/P/Bld) [Vol rate/Area]mL/min/{1.73_m2}>=60 mL/min/1.73m 2FUniversity Hospitals Geneva Medical CenterGlucose [Mass/Vol]100 mg/yU90-486 [facility] CenterPotassium [Moles/Vol]3.5 mmol/L3.5-5.1FUniversity Hospitals Geneva Medical CenterProtein [Mass/Vol]7.7 g/dL6.4-8.2FSt. Anthony's Hospitalodium [Moles/Vol]139 mmol/J883-617PlbeoybiiBarney Children'S Medical CenterUrea nitrogen [Mass/Vol]14.0 mg/dL7.0-18.0[facility] CenterUrea nitrogen/Creatinine [Mass ratio]16.7 mg/mgBarney Children'S Medical CenterLaboratory - Hematology and Cell countson 84-14-0058Hdmcteyn granulocytes/100 WBC (Bld)0.3 %0.0-0.5FUniversity Hospitals Geneva Medical Center Leukocytes [#/volume] corrected for nucleated erythrocytes in Blood by Automated counon 78-36-5628OYY corrected for nucl RBC Auto (Bld) [#/Vol]Leukocytes [#/volume] corrected for nucleated erythrocytes in Blood by Automated coun 4.0-11.0[facility] CenterLymphocytes Auto (Bld) [#/Vol]on 28-16-2795Wkfsbyfjmrp (Bld) [#/Vol]Lymphocytes [#/volume] in Blood by Automated count1.2-3.8[facility] CenterLymphocytes/100 WBC Auto (Bld)on 32-72-3955Eeybyzddcxz/100 WBC (Bld)Lymphocytes/100 leukocytes in Blood by Automated count20.5-60.0[facility] CenterH Auto (RBC) [Entitic mass]on 41-69-4353NTC (RBC) [Entitic mass]MCH [Entitic mass] by Automated count 26.7-34.0[facility] Medical CenterMCHC Auto (RBC) [Mass/Vol]on 41-41-2633IMJK (RBC) [Mass/Vol]MCHC [Mass/volume] by Automated count29.9-35.2 [facility] CenterMCV Auto (RBC) [Entitic vol]on 96-50-1493EBJ (RBC) [Entitic vol]MCV [Entitic volume] by Automated count81.0-99.0[facility] CenterMonocytes Auto (Bld) [#/Vol]on 17-17-2479Vyjjcnxyg (Bld) [#/Vol]Automated blood monocyte count0.3-0.8[facility] Monocytes/100 WBC Auto (Bld)on 57-28-9088Lkkyfotix/100 WBC (Bld)Automated monocyte %1.7-12.0[facility] CenterNeutrophils Auto (Bld) [#/Vol]on 93-69-8156Izqwdqctwfa (Bld) [#/Vol]Neutrophils [#/volume] in Blood by Automated countHigh1.4-6.5FUniversity Hospitals Geneva Medical CenterNeutrophils/100 WBC Auto (Bld)on 09-18-7732Kppkfjiyftq/100 WBC (Bld)Automated neutrophil %43.0-75.0 [facility] CenterNo Panel Informationon 16-42-1462Zcoaxwvngxy # (Auto)0.2 10 3/uL0.0-0.7FUniversity Hospitals Geneva Medical CenterImmature Granulocyte # (Auto)0.03 10 3/uL0.00-0.03[facility] CenterPlatelet mean volume Auto (Bld) [Entitic vol]on 55-17-6110Gfmhkood mean volume (Bld) [Entitic vol] Platelet mean volume [Entitic volume] in Blood by Automated countLow9.5-13.5 [facility] CenterPlatelets Auto (Bld) [#/Vol]on 09-24-2024 Platelets (Bld) [#/Vol]Platelets [#/volume] in Blood by Automated yqvvu349-320 [facility] CenterRBC Auto (Bld) [#/Vol]on 60-73-7271XZL (Bld) [#/Vol]Erythrocytes [#/volume] in Blood by Automated count4.20-5.40[facility] Hospitalerum or plasma albumin/globulin mass ratioon 09-24-2024 Albumin/Globulin [Mass ratio]Serum or plasma albumin/globulin mass ratio [facility] Hospitalerum or plasma anion gap determinationon 57-55-2361Ayufs gap [Moles/Vol]Serum or plasma anion gap determinationBarney Children'S Medical CenterBasophils Auto (Bld) [#/Vol]on 30-96-3520Catkhhblz (Bld) [#/Vol]0.1 10 3/uL0.0-0.1FUniversity Hospitals Geneva Medical CenterBasophils/100 WBC Auto (Bld)on 02-94-6216Korbpbhli/100 WBC (Bld)0.5 %0.2-2.0[facility] CenterEosinophils/100 WBC Auto (Bld)on 31-78-2322Tnnugecdetw/100 WBC (Bld)3.0 % 0.9-7.0[facility] CenterErythrocyte distribution width Auto (RBC) [Ratio]on 60-60-2260Ampznecplla distribution width (RBC) [Ratio]15.0 % 11.0-15.0[facility] CenterGlucose mean value [Mass/volume] in Blood Estimated from glycated hemoglobinon 16-84-9928Hhotmyk glucose Estimated from glycated hemoglobin (Bld) [Mass/Vol]117 mg/dLBarney Children'S Medical CenterHematocrit Auto (Bld) [Volume fraction]on 81-13-4837Kprjuflflf (Bld) [Volume fraction]41.1 %36.0-48.0[facility] Medical CenterHemoglobin [Mass/volume] in Bloodon 59-30-2321Ibouqoclng (Bld) [Mass/Vol]13.2 g/dL12.0-16.0 [facility] CenterLon 70-78-3593GIjwwksbf: [id number] Received: 05/06/24 Status: MARY Req Num: [id number] Spec Type: Impression Subm Dr: Segun Kingsley DO Tissues: PATHPER Procedures: PATHREVIEW Age/ Patient Sex Location Account Attending Physician Zaria Corona 68/F LABELL [id number] Segun Kingsley DO SPEC NUM: [id number] RECD: 05/06/24 STATUS: MARY ELIO NUM: [id number] KYRIE: 05/06/[address]: Segun Kingsley DO ENTERED: 05/06/[address]: Marj,Lab SPEC TYPE: Impression DEPT: GARRETT Myles ENTERED BY: [id number] RECV BY: [id number] ORDERED: PATHREVIEW ORDERED: PATHREVIEW Pathologist Review Abnormal [...] inflammation, or underlying infection requiring clinical correlations [facility]:[id number] Specimen: [id number] Received: 05/06/24-1320 Status: MARY Rodgers Num: [id number] Spec Type: Impression Subm Dr: Segun Kingsley DO Tissues: PATHPER Procedures: PATHREVIEW Patient: Zaria Corona [id number] (Continued) Signed (signature on file) Qasim Feng MD 05/07/[address] [place] [address] Physician GroupLaboratory - Hematology and Cell countson 32-16-1286KuV4z (Bld) [Mass fraction]5.7 %4.5-6.2FUniversity Hospitals Geneva Medical CenterComment on above:ADA RECOMMENDED LIMIT 4.0 - 6.0ADA THERAPEUTIC TARGET < 7.0ACTION SUGGESTED> 7.0Immature granulocytes/100 WBC (Bld)0.7 %High0.0-0.5 [facility] CenterLeukocytes [#/volume] corrected for nucleated erythrocytes in Blood by Automated counon 80-19-4523ORR corrected for nucl RBC Auto (Bld) [#/Vol]13.2 10 3/uLHigh4.0-11.0[facility] Lymphocytes Auto (Bld) [#/Vol]on 47-02-8200Ntueefdasee (Bld) [#/Vol]2.7 10 3/uL 1.2-3.8[facility] CenterLymphocytes/100 WBC Auto (Bld)on 43-29-9973Ergnhbrbjcu/100 WBC (Bld)20.6 %20.5-60.0[facility] CenterH Auto (RBC) [Entitic mass]on 04-69-7334MBU (RBC) [Entitic mass]27.9 pg 26.7-34.0[facility] CenterHC Auto (RBC) [Mass/Vol]on 08-68-9896WTMO (RBC) [Mass/Vol]32.1 g/dL29.9-35.2FMercy Health St. Elizabeth Boardman HospitalV Auto (RBC) [Entitic vol]on 18-85-2150XMQ (RBC) [Entitic vol]86.9 fL 81.0-99.0[facility] CenterMonocytes Auto (Bld) [#/Vol]on 95-63-8412Zcasqjwhd (Bld) [#/Vol]0.7 10 3/uL0.3-0.8[facility] CenterMonocytes/100 WBC Auto (Bld)on 72-19-2656Bkxlwdfxq/100 WBC (Bld)5.0 % 1.7-12.0[facility] Medical CenterNeutrophils Auto (Bld) [#/Vol]on 58-21-5010Hrhovnlutaw (Bld) [#/Vol]9.3 10 3/uLHigh1.4-6.5FUniversity Hospitals Geneva Medical CenterNeutrophils/100 WBC Auto (Bld)on 61-70-8252Crtipbwblwu/100 WBC (Bld)70.2 %43.0-75.0[facility] CenterNo Panel Informationon 03-38-3922For Manual DifferentialSee commentBarney Children'S Medical Center Comment on above:SEE SCANNED REPORTEosinophils # (Auto)0.4 10 3/uL0.0-0.7 [facility] CenterImmature Granulocyte # (Auto)0.09 10 3/uLHigh 0.00-0.03[facility] CenterPlatelet mean volume Auto (Bld) [Entitic vol]on 76-81-5665Pqopxmbn mean volume (Bld) [Entitic vol]8.5 fLLow 9.5-13.5FUniversity Hospitals Geneva Medical CenterPlatelets Auto (Bld) [#/Vol]on 49-92-6691Athnfkbbq (Bld) [#/Vol]419 10 3/bK903-609CemlfgoksBarney Children'S Medical CenterRBC Auto (Bld) [#/Vol]on 55-00-0622WTC (Bld) [#/Vol]4.73 10 6/uL4.20-5.40 [facility] CenterBasophils Auto (Bld) [#/Vol]on 05-01-2024 Basophils (Bld) [#/Vol]0.1 10 3/uL0.0-0.1FUniversity Hospitals Geneva Medical Center Basophils/100 WBC Auto (Bld)on 56-92-6204Iqbcwwlxr/100 WBC (Bld)0.3 %0.2-2.0 [facility] CenterCholesterol in LDL Calc [Mass/Vol]on 05-01-2024 Cholesterol in LDL [Mass/Vol]56.0 mg/dLBarney Children'S Medical CenterComment on above:<100 mg/dl OVFUFYA247-986 mg/dl NEAR OR ABOVE BRPMBCB229-784 mg/dl BORDERLINE VBCF007-611 mg/dl HIGH>190 mg/dl VERY HIGHCholesterol in VLDL Calc [Mass/Vol]on 41-69-6870Ghkrjogxrgz in VLDL [Mass/Vol]21.0 mg/dLBarney Children'S Medical CenterEosinophils/100 WBC Auto (Bld)on 05-01-2024 Eosinophils/100 WBC (Bld)0.6 %Low0.9-7.0[facility] Erythrocyte distribution width Auto (RBC) [Ratio]on 05-60-4350Nzfhlyyacbo distribution width (RBC) [Ratio]15.3 %High11.0-15.0[facility] CenterEstimated glomerular filtration rate (GFR) non- Americanon 36-31-9087IZV/1.73 sq M.predicted among non-blacks MDRD (S/P/Bld) [Vol rate/Area]mL/min/{1.73_m2}>=60[facility] CenterGlobulin Calc (S) [Mass/Vol]on 38-19-4561Cenbebza (S) [Mass/Vol]4.7 g/dLBarney Children'S Medical CenterHematocrit Auto (Bld) [Volume fraction]on 49-23-1909Owdjlaycmh (Bld) [Volume fraction]40.0 %36.0-48.0[facility] CenterHemoglobin [Mass/volume] in Bloodon 43-62-8304Gbkwxltmnx (Bld) [Mass/Vol]12.9 g/dL12.0-16.0 [facility] CenterLaboratory - Chemistry and Chemistry - challengeon 09-93-4383Xqijqwd [Mass/Vol]3.3 g/dLLow3.4-5.0[facility] CenterALP [Catalytic activity/Vol]157 U/CFxbm23-655PblwpvhxxBarney Children'S Medical CenterALT [Catalytic activity/Vol]22 U/Y26-03RemeyomxwBarney Children'S Medical CenterAST [Catalytic activity/Vol]17 U/B22-09XgasjkrniBarney Children'S Medical Center Bilirubin [Mass/Vol]0.6 mg/dL0.2-1.0[facility] CenterCalcium [Mass/Vol]9.1 mg/dL8.5-10.1FUniversity Hospitals Geneva Medical CenterChloride [Moles/Vol] 99 mmol/N32-032TuplpwcgzBarney Children'S Medical CenterCholesterol [Mass/Vol]155 mg/dL <=200[facility] CenterCholesterol in HDL [Mass/Vol]78 mg/dLHigh 40-60[facility] CenterComment on above:> or =60 mg/dl - LOW CARDIOVASCULAR RISK<40 mg/dl - HIGH CARDIOVASCULAR RISKCO2 [Moles/Vol]27.0 mmol/L21.0-32.0[facility] CenterCreatinine [Mass/Vol]0.70 mg/dL 0.55-1.02[facility] CenterGFR/1.73 sq M.predicted MDRD (S/P/Bld) [Vol rate/Area]mL/min/{1.73_m2}>=60[facility] CenterGlucose [Mass/Vol]124 mg/nHXncb48-999RnhddzsexBarney Children'S Medical CenterPotassium [Moles/Vol]3.3 mmol/LLow3.5-5.1FUniversity Hospitals Geneva Medical CenterProtein [Mass/Vol]8.0 g/dL6.4-8.2FSt. Anthony's Hospitalodium [Moles/Vol]136 mmol/R615-661XskftacitBarney Children'S Medical CenterTriglyceride [Mass/Vol]105 mg/dL <=150[facility] CenterUrea nitrogen [Mass/Vol]15.0 mg/dL7.0-18.0 [facility] CenterUrea nitrogen/Creatinine [Mass ratio]21.4 mg/mg [facility] CenterLaboratory - Hematology and Cell countson 01-34-1729Guaduawa granulocytes/100 WBC (Bld)0.5 %0.0-0.5FUniversity Hospitals Geneva Medical CenterLeukocytes [#/volume] corrected for nucleated erythrocytes in Blood by Automated counon 66-05-2770ORB corrected for nucl RBC Auto (Bld) [#/Vol]19.0 10 3/uLHigh4.0-11.0[facility] CenterLymphocytes Auto (Bld) [#/Vol]on 40-73-5252Udevvfeiuhr (Bld) [#/Vol]2.0 10 3/uL1.2-3.8[facility] CenterLymphocytes/100 WBC Auto (Bld)on 05-01-2024 Lymphocytes/100 WBC (Bld)10.3 %Low20.5-60.0[facility] Medical CenterMCH Auto (RBC) [Entitic mass]on 30-50-3550ZYS (RBC) [Entitic mass]27.6 pg26.7-34.0 [facility] CenterMCHC Auto (RBC) [Mass/Vol]on 89-32-2326DZBL (RBC) [Mass/Vol]32.3 g/dL29.9-35.2FUniversity Hospitals Geneva Medical CenterMCV Auto (RBC) [Entitic vol]on 96-12-3728GGH (RBC) [Entitic vol]85.7 fL81.0-99.0[facility] CenterMonocytes Auto (Bld) [#/Vol]on 56-57-6617Agoymaxqc (Bld) [#/Vol]1.2 10 3/uLHigh0.3-0.8[facility] CenterMonocytes/100 WBC Auto (Bld)on 01-18-9133Nmheuatfj/100 WBC (Bld)6.2 %1.7-12.0[facility] CenterNeutrophils Auto (Bld) [#/Vol]on 21-06-2334Boccalmqgvc (Bld) [#/Vol]15.6 10 3/uLHigh1.4-6.5FUniversity Hospitals Geneva Medical CenterNeutrophils/100 WBC Auto (Bld)on 21-85-1668Gokenlvkjom/100 WBC (Bld)82.1 %High43.0-75.0[facility] CenterNo Panel Informationon 48-20-5412Spnfqurfity # (Auto)0.1 10 3/uL0.0-0.7FUniversity Hospitals Geneva Medical CenterImmature Granulocyte # (Auto) 0.09 10 3/uLHigh0.00-0.03[facility] CenterPlatelet mean volume Auto (Bld) [Entitic vol]on 84-39-2013Rccedgjy mean volume (Bld) [Entitic vol]9.1 fLLow9.5-13.5FUniversity Hospitals Geneva Medical CenterPlatelets Auto (Bld) [#/Vol]on 83-79-6878Vzhmtsvfe (Bld) [#/Vol]346 10 3/dH310-714XwosoafjdBarney Children'S Medical CenterRBC Auto (Bld) [#/Vol]on 89-33-2350EMQ (Bld) [#/Vol]4.67 10 6/uL4.20-5.40 [facility] Hospitalerum or plasma albumin/globulin mass ratioon 17-52-0542Huaygux/Globulin [Mass ratio]0.7 {ratio}[facility] Hospitalerum or plasma anion gap determinationon 49-47-0211Bvmch gap [Moles/Vol] 13.3 mmol/LFSt. Anthony's Hospitalerum or plasma total cholesterol/high density lipoprotein (HDL) cholesterol mass franklin 05-01-2024 Cholesterol.total/Cholesterol in HDL [Mass ratio]2.0 {ratio}[facility] CenterComment on above:3.3 - 4.4 LOW RISK4.4 - 7.1 AVERAGE RISK7.1 - 11.0 MODERATE RISK>11.0 HIGH RISKLaboratory - Chemistry and Chemistry - challengeon 81-26-6240Tqbankiz [Moles/Vol]102 mmol/N35-380FoktunsriBarney Children'S Medical CenterCO2 [Moles/Vol]28.0 mmol/L21.0-32.0[facility] CenterPotassium [Moles/Vol]4.0 mmol/L3.5-5.1FUniversity Hospitals Geneva Medical Center Sodium [Moles/Vol]138 mmol/G725-374OovopmzlsDelaware County Hospitalerum or plasma anion gap determinationon 34-76-8058Jpoxr gap [Moles/Vol]12.0 mmol/L [facility] CenterUS Thyroid glandon 23-52-2058[place] [address] Ultrasound Report Signed Patient: ELBA CORONA MR#: [id number] : 1955 Acct:[id number] Age/Sex: 68 / F ADM Date: 09/05/23 Loc: US Attending Dr: Anum Dumont M.D. Ordering Physician: Anum Dumont M.D. Date of Service: 09/05/23 Procedure(s): US thyroid Accession Number(s): [id number] cc: Segun Kingsley D.O.; Anum Dumont M.D. [address] [address] Patient Name: ELBA CORONA MRN: [id number] date: 1955 Sex: F Assigned Patient Location: US Current Patient Location: US Accession/Order Number: [id number] Exam Date: 09/05/2023 12:15 Report Date: 09/05/2023 [...] Signed By: 09/05/23 1341 DD/ 1338 TD/TT: Coil Cleaner:IAMHRadiology, Radiologist, - 09/05/[address] [address] Ultrasound Report Signed Patient: ELBA CORONA MR#: [id number] : 1955 Acct:[id number] Age/Sex: 68 / F ADM Date: 09/05/23 Loc: US Attending Dr: Anum Dumont M.D. Ordering Physician: Anum Dumont M.D. Date of Service: 09/05/23 Procedure(s): US thyroid Accession Number(s): [id number] cc: Segun Kingsley D.O.; Anum Dumont M.D. The [address] [address] Patient Name: ELBA CORONA MRN: [id number] date: 1955 Sex: F Assigned Patient Location: US Current Patient Location: US Accession/Order Number: [id number] Exam Date: 09/05/2023 12:15 Report Date: 09/05/2023 [...] Signed By: 09/05/23 1341 DD/ 1338 TD/TT: Coil Cleaner: MELANI MensahRadiology Study observation (narrative)MELANI Hidalgo Thyroid glandOrdered By: Radiologist Radiology on 62-86-9824HTFR Healthcare Work Phone: XR KUB 1 VIEWon 32-11-4748EE KUB 1 VIEWEXAMINATION: XR KUB 1 VIEW HISTORY: Kidney stone COMPARISON: No relevant comparison available. FINDINGS: KIDNEY/URETER - RIGHT: punctate nephrolithiasis. KIDNEY/URETER - LEFT: punctate nephrolithiasis PELVIS: No visible ureteral calcifications. Any visible calcifications favor phleboliths. BOWEL: No abnormal dilation or deviation. BONES: No acute abnormality. OTHER: Negative. No abnormal gaseous collections. IMPRESSION: Bilateral punctate nephrolithiasis Electronically authenticated by: EVERETT ERNANDEZ Date: 2023-01-20 11:11[facility] HospitalELECTROLYTESon 19-45-4247Oapqz gap [Moles/Vol]12.4 mmol/LNormal [facility] CampusComment on above:Performed By: #### PTHINT #### [facility] [address] [place] [address] Dr. Alejandrina FengChloride [Moles/Vol]102 mmol/DMsixds17-681GvxMercy Health Willard Hospital Comment on above:Performed By: #### PTHINT #### [facility] [address] [place] [address] Dr. Alejandrina FengCO2 [Moles/Vol]28.5 mmol/AQlknoe92.0-32.0[facility] Comment on above:Performed By: #### PTHINT #### [facility] [address] [place] [address] Dr. Alejandrina FengPotassium [Moles/Vol]3.9 mmol/LNormal3.5-5.1[facility] Comment on above:Performed By: #### PTHINT #### [facility] [address] [place] [address] Dr. Alejandrina FengSodium [Moles/Vol]139 mmol/MMfcjys932-469FivMercy Health Willard Hospital Comment on above:Performed By: #### PTHINT #### [facility] [address] [place] [address] Dr. Alejandrina Christopher THYROIDon 01-62-7862MF THYROIDEXAMINATION: US THYROID HISTORY: Non-toxic uninodular goiter [...] thyroid stable. TR 3 nodule TI-RADS: The [employer] TI-RADS committee's white paper recommendations for thyroid lesions classified as TR3 (mildly suspicious) are listed below: > 1.5 cm. Follow-up ultrasound in 1, 3, and 5 years. > 2.5 cm. FNA. J. Am Kyrie Radiol 2017;14:587-595. Electronically authenticated by: EVERETT ERNANDEZ Date: 2022-08-29 07:[facility]rington HospitalXR KUB 1 VIEWon 90-47-8445YE KUB 1 VIEWEXAMINATION: XR KUB 1 VIEW [...] Electronically authenticated by: JACKSON MEJIA Date: 2022-07-14 06:26[facility] HospitalELECTROLYTESon 68-86-7954Wyqrx gap [Moles/Vol]9.0 mmol/LNormal [facility] CampusComment on above:Performed By: #### ELEC #### [facility] [address] [address] [address] Alejandrina FengChloride [Moles/Vol]101 mmol/RLwlasd38-092DjvMercy Health Willard Hospital Comment on above:Performed By: #### ELEC #### [facility] [address] [address] [address] Alejandrina FengCO2 [Moles/Vol]27.5 mmol/VKpxpvr53.0-32.0[facility] Comment on above:Performed By: #### ELEC #### [facility] [address] [place], [place] [address] Dr. Alejandrina FengPotassium [Moles/Vol]3.5 mmol/LNormal3.5-5.1[facility] Comment on above:Performed By: #### ELEC #### [facility] [address] [place], [place] [address] Dr. Alejandrina FengSodium [Moles/Vol]134 mmol/LCritically stc971-455Seq [facility] CampusComment on above:Performed By: #### ELEC #### [facility] [address] [address] [address] Alejandrina FengMG MAMM SCREEN 3D TUSHAR CADon 88-23-4421PY MAMM SCREEN 3D TUSHAR CAD Patient: ZARIA CORONA Exam Date: 07/06/2022 : 1955 Gender:F Ordering : DR SEGUN KINGSLEY D.O. Admission #: [id number] Family : Order #: [id number] CLICK HERE TO VIEW EXAM RADIOLOGY REPORT [...] Treatments None Family Cancers None LOCATION: [facility] BREAST COMPOSITION: Heterogeneously dense,which may obscure small [...] by: Everett Ernandez MD on 07/06/2022 at 10:00NoMercy Health St. [facility] AUTO DIFFon 33-57-2927GDPF #0.1 103/ulNormal0.0-0.1The [place] HospitalComment on above:Performed By: #### CBC #### [facility] [address] [place] [address] Dr. Alejandrina FengBasophils/100 WBC (Bld)0.4 %Normal0.2-2.0[facility] Comment on above:Performed By: #### CBC #### [facility] [address] [place] [address] Dr. Alejandrina Moise #0.1 103/ulNormal0.0-0.7The [facility] CampusComment on above: Performed By: #### CBC #### [facility] [address] [place] [address] Dr. Alejandrina Camarilloosinophils/100 WBC (Bld)0.6 %Critically low0.9-7.0[facility]:Performed By: #### CBC #### [facility] [address] [place] [address] Dr. Alejandrina Camarillorythrocyte distribution width (RBC) [Ratio]14.6 %Jkzdsg13.0-15.0 [facility]:Performed By: #### CBC #### [facility] [address] [place] [address] Dr. Alejandrina FengHematocrit (Bld) [Volume fraction]43.6 %Egaqgl16.0-48.0[facility]:Performed By: #### CBC #### [facility] [address] [place] [address] Dr. Alejandrina FengHemoglobin (Bld) [Mass/Vol]14.1 g/jAUqlbco45.0-16.0[facility]:Performed By: #### CBC #### [facility] [address] [place] [address] Dr. Alejandrina Washburn #0.07 10e3/ulCritically high0.00-0.03[facility] Comment on above:Performed By: #### CBC #### [facility] [facility] [address] [place] [address] Dr. Alejandrina Washburn %0.6 %Critically high0.0-0.5The [facility] CampusComment on above:Performed By: #### CBC #### [facility] [address] [place] [address] Dr. Alejandrina Moore #1.6 103/ulNormal1.2-3.8The [facility] CampusComment on above:Performed By: #### CBC #### [facility] [address] [place] [address] Dr. Alejandrina Freemanhocytes/100 WBC (Bld)12.4 %Critically low20.5-60.0The [facility] CampusComment on above:Performed By: #### CBC #### [facility] [address] [place] [address] Dr. Alejandrina Meyer DIFF REQNONormalThe [facility] CampusComment on above: Performed By: #### CBC #### [facility] [address] [place] [address] Dr. Alejandrina Robert (RBC) [Entitic mass]27.9 gsBahytp97.7-34.0The [facility] CampusComment on above:Performed By: #### CBC #### [facility] [address] [place] [address] Dr. Alejandrina Lion (RBC) [Mass/Vol]32.3 g/zVJegtkl60.9-35.2The [facility] CampusComment on above:Performed By: #### CBC #### [facility] [address] [place] [address] Dr. Alejandrina Bianchi (RBC) [Entitic vol]86.3 sERaausz61.0-99.0The [facility] CampusComment on above:Performed By: #### CBC #### [facility] [address] [place] [address] Dr. Alejandrina Reid #0.9 103/ulCritically high0.3-0.8The [facility] Comment on above:Performed By: #### CBC #### [facility] [address] [place] [address] Dr. Alejandrina Deviocytes/100 WBC (Bld)7.2 %Normal1.7-12.0The [facility] Comment on above:Performed By: #### CBC #### [facility] [address] [place] [address] Dr. Alejandrina Jones #10.0 103/ulCritically high1.4-6.5The [facility] Comment on above:Performed By: #### CBC #### [facility] [address] [place] [address] Dr. Alejandrina Slaughterutrophils/100 WBC (Bld)78.8 %Critically high43.0-75.0The [facility] CampusComment on above:Performed By: #### CBC #### [facility] [address] [place] [address] Dr. Alejandrina Pettylet mean volume (Bld) [Entitic vol]8.8 fLCritically low 9.5-13.5The [facility] CampusComment on above:Performed By: #### CBC #### [facility] [address] [place] [address] Dr. Alejandrina ShaneT404 103/mqZnmpxf390-493Mvr [facility] CampusComment on above: Performed By: #### CBC #### [facility] [address] [place] [address] Dr. Alejandrina FengRBC5.05 106/ulNormal4.20-5.40The [facility] CampusComment on above:Performed By: #### CBC #### [facility] [address] [place] [address] Dr. Alejandrina FengWBC12.7 103/ulCritically high4.0-11.0The [facility] CampusComment on above:Performed By: #### CBC #### [facility] [address] [place] [address] Dr. Alejandrina Mccauley 14(COMP METB)on 41-08-6565Aghrepo [Mass/Vol]3.6 g/dLNormal 3.4-5.0The [facility] CampusComment on above:Performed By: #### CMP, TSH #### [facility] [address] [address] [address] Alejandrina FengAlbumin/Globulin [Mass ratio]0.8 {ratio}NormalThe [facility] CampusComment on above:Performed By: #### CMP, TSH #### [facility] [address] [address] [address] Alejandrina MoralesP [Catalytic activity/Vol]182 U/LCritically brmv09-897Ghd [facility] CampusComment on above:Performed By: #### CMP, TSH #### [facility] [address] [address] [address] Alejandrina MoralesT [Catalytic activity/Vol]29 U/THdkvwu93-70Ejj [facility] CampusComment on above:Performed By: #### CMP, TSH #### [facility] [address] [place] [address] Dr. Alejandrina FengAnion gap [Moles/Vol]13.4 mmol/LNormalThe [facility] Comment on above:Performed By: #### CMP, TSH #### [facility] [address] [place] [address] Dr. Alejandrina FengAST [Catalytic activity/Vol]22 U/VGtytnc05-34Dhw [facility] CampusComment on above:Performed By: #### CMP, TSH #### [facility] [address] [place] [address] Dr. Alejandrina FengBilirubin [Mass/Vol]0.5 mg/dLNormal0.2-1.0The [facility] Comment on above:Performed By: #### CMP, TSH #### [facility] [address] [place] [address] Dr. Alejandrina FengCalcium [Mass/Vol]9.3 mg/dLNormal8.5-10.1The [facility] Comment on above:Performed By: #### CMP, TSH #### [facility] [address] [place] [address] Dr. Alejandrina FengChloride [Moles/Vol]102 mmol/XSkqhxp77-453Ywr [facility] Comment on above:Performed By: #### CMP, TSH #### [facility] [address] [address] [address] Alejandrina FengCO2 [Moles/Vol]26.2 mmol/CZmaxgv55.0-32.0The [facility] Comment on above:Performed By: #### CMP, TSH #### [facility] [address] [address] [address] Alejandrina FengCreatinine [Mass/Vol]0.94 mg/dLNormal0.55-1.02The [facility] CampusComment on above:Performed By: #### CMP, TSH #### [facility] [address] [address] [address] Tinoco ChangEGFR-AF AZERBAIJANI>60Normal>=60The [facility] CampusComment on above:Performed By: #### CMP, TSH #### [facility] [address] [address] [address] Alejandrina CamarilloGFR-NON AF FKNGMOMO59 mL/min/1.25b3Kyxyidhjns low>=60The [facility] CampusComment on above:Performed By: #### CMP, TSH #### [facility] [address] [address] [address] Alejandrina FengGlobulin (S) [Mass/Vol]4.3 g/dLNormalThe [facility] CampusComment on above:Performed By: #### CMP, TSH #### [facility] [address] [address] [address] Alejandrina FengGlucose [Mass/Vol]101 mg/jKBbetvd27-698Awh [facility] Comment on above:Performed By: #### CMP, TSH #### [facility] [address] [address] [address] Alejandrina FengPotassium [Moles/Vol]4.6 mmol/LNormal3.5-5.1The [facility] Comment on above:Performed By: #### CMP, TSH #### [facility] [address] [address] [address] Alejandrina FengProtein [Mass/Vol]7.9 g/dLNormal6.4-8.2The [facility] Comment on above:Performed By: #### CMP, TSH #### [facility] [address] [address] [address] Alejandrina FengSodium [Moles/Vol]137 mmol/ODeicij138-847Ooq [facility] Comment on above:Performed By: #### CMP, TSH #### [facility] [address] [place] [address] Dr. Alejandrina James nitrogen [Mass/Vol]19.0 mg/dLCritically high7.0-18.0The [facility] CampusComment on above:Performed By: #### CMP, TSH #### [facility] [address] [place] [address] Dr. Alejandrina James nitrogen/Creatinine [Mass ratio]20.2 mg/mgNormalThe [facility] CampusComment on above:Performed By: #### CMP, TSH #### [facility] [address] [place] [address] Dr. Alejandrina Montelongo 12-34-0639VZV6.854 uIU/mLNormal0.358-3.740The [facility] CampusComment on above:Performed By: #### CMP, TSH #### [facility] [address] [place] [address] Dr. Alejandrina Rodríguez-19 PCR ([facility])on 67-29-4857QZZA-CoV-2 (COVID-19) RNA JACKSON+probe Ql (Unsp spec)Not detectedNormalNOT DETECTEDThe [facility] Comment on above:Result Comment: When diagnostic testing [...] for this test is supported by the [place] of Health and Human Service's declaration that [...] longer be used).Performed By: #### CBC #### [facility] [address] [place] [address] Dr. Alejandrina CamarilloLECTROLYTESon 83-34-5947Vylbv gap [Moles/Vol]14.8 mmol/LNormal The [facility] CampusComment on above:Performed By: #### ELEC #### [facility] [address] [place] [address] Dr. Alejandrina FengChloride [Moles/Vol]103 mmol/DJthfrr38-503Wbc [facility] Comment on above:Performed By: #### ELEC #### [facility] [address] [place] [address] Dr. Alejandrina FengCO2 [Moles/Vol]25.2 mmol/VVjyqdw41.0-32.0The [facility] Comment on above:Performed By: #### ELEC #### [facility] [address] [place] [address] Dr. Alejandrina FengPotassium [Moles/Vol]4.0 mmol/LNormal3.5-5.1The [facility] Comment on above:Performed By: #### ELEC #### [facility] [address] [place] [address] Dr. Alejandrina FengSodium [Moles/Vol]139 mmol/JTalnwi680-902Rnl [facility] Comment on above:Performed By: #### ELEC #### [facility] [address] [place] [address] Dr. Alejandrina FengCovid-19 PCR ([facility])on 62-43-4706YJZW-CoV-2 (COVID-19) RNA JACKSON+probe Ql (Unsp spec)Not detectedNormalNOT DETECTEDThe [facility] Comment on above:Result Comment: This test is not yet approved or cleared by the [place] FDA. When there are no FDA-approved or cleared tests available, and other criteria are met, FDA can make tests available under an emergency access mechanism called an Emergency Use Authorization (EUA). The EUA for this test is supported by the [place] of Health and Human Service's (HHS's) declaration [...] consistent with SARS-CoV-2.Performed By: #### CVDTBH #### [facility] [address] [place] [address] Dr. Alejandrina Dooley 99-22-5143Flgckjqxdyi peptide B (Bld) [Mass/Vol]60.0 pg/mL Normal<=900.0The [facility] CampusComment on above:Performed By: #### PTHINT #### [facility] [address] [place] [address] Dr. Alejandrina Bahena AUTO DIFFon 11-25-8102IXRX #0.1 103/ulNormal0.0-0.1[facility] HospitalComment on above:Performed By: #### CBC #### [facility] [address] [place] [address] Dr. Alejandrina FengBasophils/100 WBC (Bld)0.4 %Normal0.2-2.0[facility] Comment on above:Performed By: #### CBC #### [facility] [address] [place] [address] Dr. Alejandrina Moise #0.2 103/ulNormal0.0-0.7The [facility] CampusComment on above: Performed By: #### CBC #### [facility] [address] [place] [address] Dr. Alejandrina Camarilloosinophils/100 WBC (Bld)1.4 %Normal0.9-7.0[facility] Comment on above:Performed By: #### CBC #### [facility] [address] [address] [address] Alejandrina Camarillorythrocyte distribution width (RBC) [Ratio]13.3 %Nsesxj18.0-15.0 The [facility] Hospitalment on above:Performed By: #### CBC #### [facility] [address] [place] [address] Dr. Alejandrina FengHematocrit (Bld) [Volume fraction]45.1 %Hapfzv91.0-48.0The [facility] CampusComment on above:Performed By: #### CBC #### [facility] [address] [place] [address] Dr. Alejandrina FengHemoglobin (Bld) [Mass/Vol]14.4 g/eDCnsbjt88.0-16.0The [facility] CampusComment on above:Performed By: #### CBC #### [facility] [address] [place] [address] Dr. Alejandrina Washburn #0.05 10e3/ulCritically high0.00-0.03The [facility] Comment on above:Performed By: #### CBC #### [facility] [address] [place] [address] Dr. Alejandrina Washburn %0.4 %Normal0.0-0.5The [facility] Hospitalment on above: Performed By: #### CBC #### [facility] [address] [place] [address] Dr. Alejandrina FreemanH #1.6 103/ulNormal1.2-3.8The [facility] Hospitalment on above:Performed By: #### CBC #### [facility] [address] [place] [address] Dr. Alejandrina Freemanhocytes/100 WBC (Bld)11.2 %Critically low20.5-60.0The [facility] Hospitalment on above:Performed By: #### CBC #### [facility] [address] [place] [address] Dr. Alejandrina MariaUAL DIFF REQNONormalThe [facility] CampusComment on above: Performed By: #### CBC #### [facility] [address] [address] [address] Alejandrina Lion (RBC) [Entitic mass]28.0 joFlbvfh41.7-34.0The [facility] CampusComment on above:Performed By: #### CBC #### [facility] [address] [place] [address] Dr. Alejandrina Lion (RBC) [Mass/Vol]31.9 g/mRDjobac33.9-35.2The [facility] HospitalComment on above:Performed By: #### CBC #### [facility] [address] [place] [address] Dr. Alejandrina Lion (RBC) [Entitic vol]87.6 tGAcpmbe91.0-99.0The [facility] CampusComment on above:Performed By: #### CBC #### [facility] [address] [place] [address] Dr. Alejandrina Reid #0.6 103/ulNormal0.3-0.8The [facility] CampusComment on above:Performed By: #### CBC #### [facility] [address] [place] [address] Dr. Alejandrina Deviocytes/100 WBC (Bld)4.5 %Normal1.7-12.0[facility] Comment on above:Performed By: #### CBC #### [facility] [address] [place] [address] Dr. Alejandrina Jones #11.4 103/ulCritically high1.4-6.5The [facility] Comment on above:Performed By: #### CBC #### [facility] [address] [place] [address] Dr. Alejandrina Slaughterutrophils/100 WBC (Bld)82.1 %Critically high43.0-75.0The [facility] CampusComment on above:Performed By: #### CBC #### [facility] [address] [place] [address] Dr. Alejandrina Pettylet mean volume (Bld) [Entitic vol]9.1 fLCritically low 9.5-13.5The [facility] CampusComment on above:Performed By: #### CBC #### [facility] [address] [place] [address] Dr. Alejandrina FengPLT363 103/vyFsfjrg125-038Rqu [facility] CampusComment on above: Performed By: #### CBC #### [facility] [address] [place] [address] Dr. Alejandrina FengRBC5.15 106/ulNormal4.20-5.40The [facility] HospitalComment on above:Performed By: #### CBC #### [facility] [address] [place] [address] Dr. Alejandrina FengWBC13.9 103/ulCritically high4.0-11.0The [facility] CampusComment on above:Performed By: #### CBC #### [facility] [address] [place] [address] Dr. Alejandrina CruzF 14(COMP METB)on 70-64-7809Sdxbgxw [Mass/Vol]4.0 g/dLNormal 3.4-5.0The [facility] CampusComment on above:Performed By: #### PTHINT #### [facility] [address] [place] [address] Dr. Alejandrina FengAlbumin/Globulin [Mass ratio]0.8 {ratio}NormalThe [facility] CampusComment on above:Performed By: #### PTHINT #### [facility] [address] [place] [address] Dr. Alejandrina Nicole [Catalytic activity/Vol]200 U/LCritically bsgh23-391Jct [facility] CampusComment on above:Performed By: #### PTHINT #### [facility] [address] [place] [address] Dr. Alejandrina You [Catalytic activity/Vol]29 U/CKzoajr93-52Dnr [facility] CampusComment on above:Performed By: #### PTHINT #### [facility] [address] [place] [address] Dr. Alejandrina Felix gap [Moles/Vol]12.2 mmol/LNormalThe [facility] Comment on above:Performed By: #### PTHINT #### [facility] [address] [address] [address] Alejandrina FengAST [Catalytic activity/Vol]25 U/KPbalsw90-17Ftf [facility] CampusComment on above:Performed By: #### PTHINT #### [facility] [address] [address] [address] Alejandrina FengBilirubin [Mass/Vol]0.4 mg/dLNormal0.2-1.0The [facility] Comment on above:Performed By: #### PTHINT #### [facility] [address] [address] [address] Alejandrina FengCalcium [Mass/Vol]9.5 mg/dLNormal8.5-10.1[facility] Comment on above:Performed By: #### PTHINT #### [facility] [address] [address] [address] Alejandrina FengChloride [Moles/Vol]101 mmol/VKjcpuw45-567EkaMercy Health Willard Hospital Comment on above:Performed By: #### PTHINT #### [facility] [address] [address] [address] Alejandrina FengCO2 [Moles/Vol]25.8 mmol/GTxmtcf01.0-32.0[facility] Comment on above:Performed By: #### PTHINT #### [facility] [address] [address] [address] Alejandrina FengCreatinine [Mass/Vol]0.69 mg/dLNormal0.55-1.02[facility] HospitalComment on above:Performed By: #### PTHINT #### [facility] [address] [place] [address] Dr. Alejandrina CamarilloGFR-AF AZERBAIJANI>60Normal>=60The [facility] CampusComment on above:Performed By: #### PTHINT #### [facility] [address] [address] [address] Alejandrina CamarilloGFR-NON AF AZERBAIJANI>60Normal>=60The [facility] CampusComment on above:Performed By: #### PTHINT #### [facility] [address] [address] [address] Alejandrina FengGlobulin (S) [Mass/Vol]4.8 g/dLNormalThe [facility] CampusComment on above:Performed By: #### PTHINT #### [facility] [address] [address] [address] Alejandrnia eFngGlucose [Mass/Vol]96 mg/lYAspnap25-761Wik [facility] Comment on above:Performed By: #### PTHINT #### [facility] [address] [address] [address] Alejandrina FengPotassium [Moles/Vol]4.0 mmol/LNormal3.5-5.1The [facility] Comment on above:Performed By: #### PTHINT #### [facility] [address] [address] [address] Alejandrina FengProtein [Mass/Vol]8.8 g/dLCritically high6.4-8.2The [facility] CampusComment on above:Performed By: #### PTHINT #### [facility] [address] [address] [address] Alejandrina FengSodium [Moles/Vol]135 mmol/LCritically wnc960-381Ioo [facility] CampusComment on above:Performed By: #### PTHINT #### [facility] [address] [address] [address] Alejandrina FengUrea nitrogen [Mass/Vol]18.0 mg/dLNormal7.0-18.0The [facility] CampusComment on above:Performed By: #### PTHINT #### [facility] [address] [address] [address] Alejandrina FengUrea nitrogen/Creatinine [Mass ratio]26.1 mg/mgNoalThe [facility] CampusComment on above:Performed By: #### PTHINT #### [facility] [address] [address] [address] Alejandrina Vallejo, HIGH SENSITIVITYon 98-17-0576HYLWQY4.4 pg/mLNormal 4.0-51.3The [facility] CampusComhar[facility] on above:Result Comment: CUT-OFF POINTS HAVE BEEN ESTABLISHED BASED ON THE FOURTH UNIVERSAL DEFINITIONS OF MYOCARDIAL INFARCTION. THE UPPER REFERENCE LIMIT (URL) OF TROPONIN, DEFINED THE 99TH PERCENTILE OF cTnI DISTRIBUTION IN A REFERENCE POPULATION, HAS BEEN CONFIRMED THE DECISION THRESHOLD FOR WI DIAGNOSIS.Performed By: #### HSTROPN #### [facility] [address] [place] [address] Dr. Alejandrina FengHSTROP6.4 pg/mLNormal4.0-51.3The [facility] CampusComhar[facility] hospital on above:Result Comment: CUT-OFF POINTS HAVE BEEN ESTABLISHED BASED ON THE FOURTH UNIVERSAL DEFINITIONS OF MYOCARDIAL INFARCTION. THE UPPER REFERENCE LIMIT (URL) OF TROPONIN, DEFINED THE 99TH PERCENTILE OF cTnI DISTRIBUTION IN A REFERENCE POPULATION, HAS BEEN CONFIRMED THE DECISION THRESHOLD FOR [place] DIAGNOSIS.Performed By: #### PTHINT #### [facility] [address] [place] [address] Dr. Alejandrina FengXR CHEST 1 Von [id number] CHEST 1 VEXAMINATION: XR CHEST 1 V [...] Electronically authenticated by: EVERETT ERNANDEZ Date: 2022-02-22 13:20NormSelect Medical Specialty Hospital - Cincinnatie [facility] CampusOSMOLALITYon 68-22-7652Bzepvpizai [Osmolality]284 mosm/kgNormal 280-301The [facility] CampusComment on above:Performed By: #### PTHINT #### [facility] [address] [place] [address] Dr. Alejandrina FengOSMOLALITY URINEon 91-81-0919Eoijespqaf, Yvfbj783 mOsmol/kgNormal The [facility] CampusComharbor beach community hospital on above:Result Comment: 24 hr : 300 - 900 Random: 50 - 1400 After 12hr fluid restriction: >850Performed By: #### OSMOU #### [facility] [address] [address] [address] Alejandrina FelixH INTACTon 07-02-0204ENJ, Fgqpid10 pg/eZHmlkpe22-37Gxe [facility] CampusComment on above:Performed By: #### PTHINT #### [facility] [address] [address] [address] Alejandrina FengPROF CHEM 8 (BAS METB)on 94-09-4862Lqzbp gap [Moles/Vol]12.7 mmol/LNormalThe [facility] CampusComment on above:Performed By: #### PTHINT #### [facility] [address] [place] [address] Dr. Alejandrina FengCalcium [Mass/Vol]8.7 mg/dLNormal8.5-10.1[facility] Comment on above:Performed By: #### PTHINT #### [facility] [address] [place] [address] Dr. Alejandrina FengChloride [Moles/Vol]100 mmol/IOjphdj52-360GzdMercy Health [facility]ard Hospital Comment on above:Performed By: #### PTHINT #### [facility] [address] [place] [address] Dr. Alejandrina FengCO2 [Moles/Vol]27.7 mmol/IBanpct07.0-32.0[facility] Comment on above:Performed By: #### PTHINT #### [facility] [address] [place] [address] Dr. Alejandrina FengCreatinine [Mass/Vol]0.65 mg/dLNormal0.55-1.02The [facility] CampusComment on above:Performed By: #### PTHINT #### [facility] [address] [place] [address] Dr. Alejandrina CamarilloGFR-AF AZERBAIJANI>60Normal>=60The [facility] CampusComment on above:Performed By: #### PTHINT #### [facility] [address] [place] [address] Dr. Yilan ChangEGFR-NON AF AZERBAIJANI>60Normal>=60The [facility] CampusComment on above:Performed By: #### PTHINT #### [facility] [address] [place] [address] Dr. Alejandrina FengGlucose [Mass/Vol]103 mg/wVRyyycd17-187Ckt [facility] Comment on above:Performed By: #### PTHINT #### [facility] [address] [place] [address] Dr. Alejandrina FengPotassium [Moles/Vol]3.4 mmol/LCritically low3.5-5.1The [facility] CampusComment on above:Performed By: #### PTHINT #### [facility] [address] [place] [address] Dr. Alejandrina Romerodium [Moles/Vol]137 mmol/AUgijed644-563Flx [facility] Comment on above:Performed By: #### PTHINT #### [facility] [address] [place] [address] Dr. Alejandrina FengUrea nitrogen [Mass/Vol]15.0 mg/dLNormal7.0-18.0The [facility] CampusComment on above:Performed By: #### PTHINT #### [facility] [address] [place] [address] Dr. Alejandrina James nitrogen/Creatinine [Mass ratio]23.1 mg/mgNormalThe [facility] CampusComment on above:Performed By: #### PTHINT #### [facility] [address] [place] [address] Dr. Alejandrina Alba RANDOM URINEon 98-95-9584Nuvpiy (U) [Moles/Vol]74 mmol/L Guwjpt72-03Ade [facility] CampusComment on above:Performed By: #### BRIGETTE #### [facility] [address] [place] [address] Dr. Alejandrina RoblesHoyudy 74-58-6771IUW0.791 uIU/mLNormal0.358-3.740The [facility] CampusComment on above:Performed By: #### PTHINT #### [facility] [address] [address] [address] Alejandrina FengAultman Alliance Community HospitalComment on above: Result Comment: <0.34 UIU/ml HYPERTHYROID 0.34-5.60 UIU/ml EUTHYROID >5.60 UIU/ml HYPOTHYROIDPerformed By: #### PTHINT #### [facility] [address] [address] [address] Alejandrina Feng Vital Signs Date TimeVital SignValuePerforming VryzgjrgwXghozfjc68-00-1859 09:27-0400Body axbikd919.56 cmBenjamin Ball DO Work Phone: [phone]07-25-2025 09:27-0400 Body mass index (BMI) [Ratio]25.7 kg/r3Jgumwtpn Ball DO Work Phone: [phone] [place], [place] [address]2507-25-2025 09:27-0400 Body iuxfaw78.09 kgBenjamin Ball DO Work Phone: [phone] [place], [place] [address]3907-25-2025 09:27-0400 Diastolic blood uasbgmsz69 mm[Hg]Segun Ball DO Work Phone: [phone]07-25-2025 09:27-0400 Heart rate71 /minBenjamin Ball DO Work Phone: [phone]07-25-2025 09:27-0400 Respiratory rate12 /minBenjamin Ball DO Work Phone: [phone] [place], [place] 5532507-25-2025 09:27-0400 Systolic blood wnuionkr555 mm[Hg]Segun Ball DO Work Phone: [phone] [place], [place] [address]2503-10-2025 10:40-0400 Body iinzdr622.56 cmBar[facility]03-10-2025 10:40-0400Body mass index (BMI) [Ratio]24.6 kg/s5DxsqxbotaBarney Children'S Medical Center03-10-2025 10:40-0400Body .09 kgBarney [facility]'S [facility] Center03-10-2025 10:40-0400Diastolic blood uvparcjg18 mm[Hg][facility] 12-02-2024 10:40-0400Heart rate80 /[facility] 12-02-2024 10:40-0400Respiratory rate12 /[facility] 12-02-2024 10:40-0400Systolic blood gssaenyw935 mm[Hg][facility]12-31-2024 10:51-0500Body tqopgv792.56 cmBar[facility]12-31-2024 10:51-0500Body mass index (BMI) [Ratio]24.7 kg/k1NinptfvsoBarney Children'S Medical Center12-31-2024 10:51-0500Body edwotd17.31 kgBarney [facility] Center12-31-2024 10:51-0500Diastolic blood fodiztok41 mm[Hg] [facility]12-31-2024 10:51-0500Heart rate74 /[facility]12-31-2024 10:51-0500Systolic blood ucnelhch151 mm[Hg] [facility]11-13-2024 09:24-0500Body .56 cm [facility]11-13-2024 09:24-0500Body mass index (BMI) [Ratio]24.9 kg/m3MchieorilBarney Children'S Medical Center11-13-2024 09:24-0500Body rdrerd44.94 kgBarney [facility]'S [facility] Center11-13-2024 09:24-0500Diastolic blood okulkyvz89 mm[Hg][facility]11-13-2024 09:24-0500 Heart rate83 /[facility]11-13-2024 09:24-0500 Respiratory rate12 /[facility]11-13-2024 09:24-0500 Systolic blood wlexumcf729 mm[Hg][facility]11-01-2024 09:06-0400Body ugrmzp136.56 cmBar[facility]11-01-2024 09:06-0400Body mass index (BMI) [Ratio]25.1 kg/m4TmfbccpgtBarney Children'S Medical Center11-01-2024 09:06-0400Body fqupni61.39 kgBarney [facility]'S [facility] 07-26-2024 09:06-0400Diastolic blood njihcgqp44 mm[Hg][facility]11-01-2024 09:06-0400Heart rate76 /[facility] 07-26-2024 09:06-0400Respiratory rate12 /[facility] 07-26-2024 09:06-0400Systolic blood tdnunmbb291 mm[Hg][facility]07-22-2024 14:16-0400Body qtctde205.56 cmBarney [facility] Center07-22-2024 14:16-0400Body mass index (BMI) [Ratio]25.9 kg/b5NcjnmcgghBarney Children'S Medical Center07-22-2024 14:16-0400Body cyeeyw96.71 kgBarney [facility]'S [facility] Center07-22-2024 14:16-0400Diastolic blood ytzazukg02 mm[Hg] [facility]07-22-2024 14:16-0400Heart rate80 /[facility]07-22-2024 14:16-0400Respiratory rate12 /[facility]07-22-2024 14:16-0400Systolic blood rrnastlu991 mm[Hg] [facility]05-28-2024 14:50-0400Blood Pressure Location [employer] [facility]05-28-2024 14:50-0400Body wzzihbynixt51.06 [degF]Kelsie Orze[employer] [facility]05-28-2024 14:50-0400Diastolic blood iktawlsi19 mm[Hg]Kelsie Orzech [facility]05-28-2024 14:50-0400Heart rate83 /minAurora Orzech [facility]05-28-2024 14:50-0400Respiratory rate16 /minAurora Orzech [facility]05-28-2024 14:50-0400Systolic blood mm[Hg]Kelsie Orzech [facility]05-28-2024 12:02-0400Body dwjxal849.56 cmBarney [facility] Center05-28-2024 12:02-0400Body mass index (BMI) [Ratio]25.8 kg/e1EufngqzciBarney Children'S Medical Center05-28-2024 12:02-0400Body .26 kgBar[facility]'S [facility] Center05-28-2024 12:02-0400Diastolic blood enapvjon69 mm[Hg] [facility]05-28-2024 12:02-0400Heart rate83 /[facility]05-28-2024 12:02-0400Respiratory rate12 /[facility]05-28-2024 12:02-0400Systolic blood hnhjuxyz115 mm[Hg] [facility]04-03-2024 09:02-0400Body .56 cm [facility]04-03-2024 09:02-0400Body mass index (BMI) [Ratio]26.2 kg/c8AqzqzvubyBarney Children'S Medical Center04-03-2024 09:02-0400Body vagojb01.11 kgBar[facility] Center04-03-2024 09:02-0400Diastolic blood mbrhfbzu75 mm[Hg][facility]04-03-2024 09:02-0400 Heart rate76 /[facility]04-03-2024 09:02-0400 Respiratory rate12 /[facility]04-03-2024 09:02-0400 Systolic blood dyguojxe049 mm[Hg][facility]03-26-2024 08:57-0400Body rygpnu151.56 cmBar[facility]03-26-2024 08:57-0400Body mass index (BMI) [Ratio]25.9 kg/g8KtlxpqldnBarney [facility]'S Medical Center03-26-2024 08:57-0400Body jihmli52.54 kgBar[facility] 12-19-2023 08:57-0400Diastolic blood ayddmpad81 mm[Hg][facility]03-26-2024 08:57-0400Heart rate98 /[facility] 12-19-2023 08:57-0400Respiratory rate12 /[facility] 12-19-2023 08:57-0400Systolic blood shqzerel750 mm[Hg][facility]01-15-2024 10:00-0500Body freezr081.56 cmBenjamin Ball Other [facility]01-15-2024 10:00-0500 Body mass index (BMI) [Ratio]25.81 kg/g3Nqswcjxd Ball Other [employer] Other 01-15-2024 10:00-0500Body dkbkef79.22 kgBenjamin Ball Other [facility]01-15-2024 10:00-0500 Diastolic blood tfujlqry98 mm[Hg]Segun Ball Other [facility]01-15-2024 10:00-0500 Respiratory rate12 /minBenjamin Ball Other [employer] Other 01-15-2024 10:00-0500Systolic blood prybbynu752 mm[Hg] Segun Ball Other [facility]12-26-2023 13:45-0500 Body iqpfxi926.56 cmBenjamin Ball Other [employer] Other 12-26-2023 13:45-0500Body mass index (BMI) [Ratio] 26.02 kg/x6Wjinuqrp Ball Other [employer] Other 12-26-2023 13:45-0500Body drjtbo14.77 kgBenjamin Ball Other [employer] Other 12-26-2023 13:45-0500Diastolic blood dfkihzqs54 mm[Hg] Segun Ball Other [employer] Other 12-26-2023 13:45-0500Respiratory rate12 /minBenjamin Ball Other [employer] Other 12-26-2023 13:45-0500Systolic blood kzogizyp375 mm[Hg] Segun Ball Other [employer] Other 07-17-2023 11:00-0400Body uadbru074.56 cmBenjamin Ball Other [employer] Other 07-17-2023 11:00-0400Body mass index (BMI) [Ratio] 26.29 kg/r0Ozlocgla Ball Other [employer] Other 07-17-2023 11:00-0400Body .49 kgBenjamin Ball Other [employer] Other 07-17-2023 11:00-0400Diastolic blood gxvresek64 mm[Hg] Segun Ball Other [employer] Other 07-17-2023 11:00-0400Respiratory rate12 /minBenjamin Ball Other [employer] Other 07-17-2023 11:00-0400Systolic blood tjqlmdox419 mm[Hg] Segun Ball Other [employer] Other 05-03-2023 12:30-0400Body uaaxqv986.56 cmBenjamin Ball Other [employer] Other 05-03-2023 12:30-0400Body mass index (BMI) [Ratio] 26.05 kg/s2Fwboshzv Ball Other [employer] Other 05-03-2023 12:30-0400Body .86 kgBenjamin Ball Other [employer] Other 05-03-2023 12:30-0400Diastolic blood zdeqayqj44 mm[Hg] Segun Ball Other [employer] Other 05-03-2023 12:30-0400Respiratory rate12 /minBenjamin Ball Other [employer] Other 05-03-2023 12:30-0400Systolic blood uhrmliih129 mm[Hg] Segun Ball Other [employer] Other 03-14-2023 11:00-0400Body eefsqe258.56 cmBenjamin Ball Other [employer] Other 03-14-2023 11:00-0400Body mass index (BMI) [Ratio] 25.98 kg/j1Zgjocvga Ball Other [employer] Other 03-14-2023 11:00-0400Body zyedwi47.68 kgBenjamin Ball Other [employer] Other 03-14-2023 11:00-0400Diastolic blood qiuyqown88 mm[Hg] Segun Ball Other [facility] [employer] Other 03-14-2023 11:00-0400Respiratory rate16 /minSegun Sancho Other [facility] [employer] Other 03-14-2023 11:00-0400Systolic blood ptrwcqud887 mm[Hg] Segun Kingsley Other [facility] [employer] Other 10-19-2022 13:16-0400Blood Pressure LocationJENNIFER SVITLANA [facility]10-19-2022 13:16-0400Diastolic blood ehxrmess16 mm[Hg]NOE SVITLANA [facility]10-19-2022 13:16-0400Heart rate79 /minJENNIFER SVITLANA [facility]10-19-2022 13:16-0400Respiratory rate16 /minJENNIFER SVITLANA [facility]10-19-2022 13:16-0400Systolic blood absilvbm525 mm[Hg]NOE SVITLANA [facility] Encounters Encounter DateEncounter TypeCare ProviderFacilityStart: 79-97-0083gtmlkehvkz Enrique Layne WATERSFacility:ROSE BellevueStart: 05-29-2025 End: 10-92-4246gjfkmznajyBijtbvgq Ball DO Work Phone: [facility] Work Phone: Start: 05-29-2025 End: 15-27-2376Myaovyw encounter procedureMago Tan MD-[facility] Work Phone: Start: 04-18-2025 End: 26-32-8437lkuscbwyloTghgqwcm Ball DO Work Phone: [facility] Work Phone: Start: 04-18-2025 End: 81-93-4874Vqdestl encounter procedureBenstacia Kingsley DO-[facility] Work Phone: Start: 04-18-2025 End: 85-09-5082Xuzdyyo encounter statusBenstacia Kingsley [facility]: 03-03-2025 End: 60-68-2358nhykpftestWixrlfm R WATERSFacility:EU BellevueStart: 03-03-2025 End: 64-01-6808Uwhaiev encounter procedureEnrique VÁSQUEZ [facility] Marj start: 01-30-2025 End: 37-65-7887abqjdsfxddUtbsyptgsOhioHealth Van Wert Hospital Work Phone: Start: 01-30-2025 End: 74-76-3940Eyzaqvv encounter procedureFirsharyns Physician Group-[facility] Work Phone: Start: 12-02-2024 End: 73-44-9909qjaclnuakzCgzevzfmtOhioHealth Van Wert Hospital Work Phone: Start: 12-02-2024 End: 28-84-5262Juqxqwk encounter procedureFirelands Physician Group-[facility] Work Phone: Start: 09-24-2024 End: 76-36-9986Ngenoyy encounter procedureFirelands Physician Group-[facility] Work Phone: Start: 08-07-2024 End: 22-28-4684ywdfgpkcmyIuczchadpOhioHealth Van Wert Hospital Work Phone: Start: 08-07-2024 End: 00-09-9671Wcgqkob encounter procedureFirelands Physician Group-[facility] Work Phone: Start: 55-26-4102Jgo-patient / Non-visitFircarilion [facility] Work Phone: Start: 07-26-2024 End: 60-64-0956gydeewaoulYfbgghvjkTogus [facility] Center Work Phone: Start: 07-26-2024 End: 55-35-4555Ygpndep encounter procedureLifecare [facility] Work Phone: Start: 05-06-2024 End: 30-62-0475frlcgsxydoZbvbuyta SanchoFacility:[facility] Start: 13-46-4692Ykf-patient / Non-visitLifecare [facility] Work Phone: Start: 65-81-8449Enp-patient / Non-visitLifecare [facility] Work Phone: Start: 04-15-2024 End: 15-40-4069hifnpigmovJxpcmernfTogus VA Medical Center Work Phone: Start: 04-15-2024 End: 57-29-2510Fbluatgsr for general adult medical examination without abnormal findingsDelaware County Hospitaltart: 04-15-2024 End: 56-61-9116Pqnqacr encounter procedureLifecare Hospit[facility] Work Phone: Start: 02-20-2024 End: 92-05-8080Lxv Drop offAurora X Orzech [facility] Start: 02-20-2024 End: 17-87-0604Kbtvmhj encounter procedureAurora X Orzech [facility] start: 02-20-2024 End: 06-79-4483vaxpycmshrAqihvftecOhioHealth Van Wert Hospital Work Phone: Start: 02-20-2024 End: 72-30-7403Ecporoa encounter procedureLifecare [facility] Work Phone: Start: 37-42-6267Vmf-patient / Non-visitLifecare [facility] Work Phone: Start: 12-27-2023 End: 36-13-9317lymsfqmbegIcelmokyjOhioHealth Van Wert Hospital Work Phone: Start: 12-27-2023 End: 75-37-7918Woeekeq encounter procedureLifecare [facility] Work Phone: Start: 12-19-2023 End: 14-31-9800gxcreskhzxMtzamancuOhioHealth Van Wert Hospital Work Phone: Start: 12-19-2023 End: 84-28-2664Cbgzdjn encounter procedureLifecare [facility] Work Phone: Start: 25-45-5505Puc-patient / Non-visitLifecare [facility] Work Phone: Start: 10-10-2023 End: 60-79-4798xablasczdgZqevesyi Ball Other [employer] Other Start: 33-74-9819Powyatenx encounterBenstacia Kingsley [facility]otart: 10-09-2023 End: 83-66-0737cmwdqaaytoIlqizbje Ball Other [employer] Other Start: 54-36-7288Utysqm outpatient visit 25 minutes Segun SanchoUniversity [facility] ClinicStart: 10-09-2023 End: 27-68-1748Adbayrm encounter procedureLifecare Hospit[facility] Work Phone: Start: 09-22-2023 End: 56-50-8287rosioeruqsLxmfntra Ball Other [employer] Other Start: 66-02-4163Wmonqlpzo encounterBenjamin BallFPG [facility] ClinicStart: 09-19-2023 End: 10-66-5504zvvnftdnjpHawtckcy Ball Other [employer] Other Start: 84-91-9974Lhnzne outpatient visit 15 minutes Segun BallFPG [facility] ClinicStart: 35-33-7452Jqgykbfnb encounterBenjamin BallFPG [facility] ClinicStart: 09-13-2023 End: 53-21-3711yjshycztloRFKKLG H Hermini[facility] [employer] Other Start: 09-05-2023 End: 91-51-4785Xfsopuuxh Result EncounterAnum Dumont MD Work Phone: [facility] External Department UnsolicitedStart: 09-05-2023 End: 45-95-0220Tcuhjfart Result EncounterHienderry Dacia Dumont MD Work Phone: [facility] External Department UnsolicitedStart: 07-19-2023 End: 00-48-8227jzntvpuyhuSltawcux Ball Other [employer] Other Start: 20-28-8373Irhnxn outpatient visit 15 minutes Segun BallFPG [facility] ClinicStart: 06-20-2023 End: 13-91-7198hsmjtenzmaIgqpaahu Ball Other [facility] [employer] Other Start: 75-12-6442Xsxxqrejm encounterBenjamin BallFPG [facility] ClinicStart: 04-13-2023 End: 02-29-0218fmfmvepputAsrvbauo Ball Other [employer] Other Start: 92-12-4348Yxwtrobby encounterBenjamin BallFPG [facility] ClinicStart: 04-10-2023 End: 79-80-2964zwlfynoqpvKwjdimgx Ball Other [employer] Other Start: 05-09-6573Urwtpmkph for general adult medical examination without abnormal findingsSegun Kingsley Medical ClinicStart: 71-92-0351Mzsdaawu preventive med est patient 65yrs& olderSegun Kingsley Medical ClinicStart: 01-25-2023 End: 19-91-0052fjzjxmovsgPlnbdnpb Ball Other [employer] Other Start: 79-96-8926Nettet outpatient visit 15 minutes Segun Kingsley Medical ClinicStart: 01-20-2023 End: 24-17-7963wxebupjfklRJ ENRIQUE VÁSQUEZ .Facility:E0Cnxnn: 12-06-2022 End: 85-50-1808nshlhntmllSlcgfmtq Ball Other [employer] Other Start: 59-98-8626Odaslk outpatient visit 25 minutes Segun Kingsley [facility] ClinicStart: 10-27-2022 End: 25-87-5611zstlgzgzswSO ENRIQUE VÁSQUEZ .Facility:U5Aihgg: 08-26-2022 End: 77-59-1970txwmzwxdxrFR ANUM GIGISFacility:R2Nzaun: 07-13-2022 End: 50-52-6287znulfmrjfaTqvwzm ZieberFacility:P2Siyat: 07-13-2022 End: 10-30-3666Rzvisoy encounter procedureJENNIFER E SVITLANA [facility] start: 07-06-2022 End: 76-85-9640wjgbuheipyVD SEGUN IKNGSLEYFacility:G4Rqzbm: 06-20-2022 End: 95-83-6146lfxqviuiboGX SEGUN KINGSLEYFacility:C0Mjemo: 32-12-6771Sgjgp health examinationSegun Kingsley Other [employer] Other Start: 03-11-2022 End: 19-44-2930hiryjvkjljZV SEGUN BALLFacility:H7Yczkj: 03-09-2022 End: 49-54-0605epxkxxdkpeCD ENRIQUE VÁSQUEZ .Facility:J4Hscbd: 03-02-2022 End: 87-10-0850ugnmrwzsuqDP SEGUN BALLFacility:L1Egepr: 02-22-2022 End: 00-06-2897gsiyiyjkkhSB SEGUN BALLFacility:V1Epabi: 01-31-2022 End: 04-60-8864twwacbrrjtPV SEGUN BALLFacility:H1 Procedures DateProcedureProcedure DetailPerforming ClinicianStart: 05-65-0655Obhzthznwdg of jaqkpa-yyopcf-gnyycbnKtgjmb Orzech Start: 67-44-8654Jm soft tissue head & neck real time imge Desiree Dumont MD Work Phone: Start: 43-14-6818Smrooirgeapakv shockwave lithotripsy of calculus of kidneyJENNIFER SIVTLANA Start: 97-22-2077XwfouymyoztaLULGIVTX SVITLANA Start: 75-54-8091Ajfbxvlrlaithh shockwave lithotripsy of calculus of kidneyJENNIFER SVITLANA Start: 01-22-6689Amltqoixzwetms shockwave lithotripsy of calculus of kidneyJENNIFER SVITLANA Start: 27-39-0381Xpbffywdzyjwaf shockwave lithotripsy of calculus of kidneyJENNIFER SVITLANA ColonoscopyJENNIFER SVITLANA End: 50-56-3482Hfdkzcrsadedkg screeningBenjamin Ball Other HysterectomyJENNIFER SVITLANA Screening for malignant neoplasm of breastBenjamin Ball Other Plan of Treatment DateCare ActivityDetailAuthorComprehensive metabolic 1999 panel - [facility]Com[facility] metabolic 2000 panel - Serum or [facility] CenterComprehensive metabolic 2000 panel - Serum or [facility] CenterMG Breast - bilateral ScreeningBarney Children'S Medical CenterMG Breast - bilateral Screening [facility] CenterPatient EducationLow back pain in adults [facility] Work Phone: xr Foot - right GE 3 ViewsBaptist Health [facility] Immunizations Immunization DateImmunizationNotesCare WeasykntStclyokr36-13-8455iitxotjxt virus vaccine, split virus (incl. purified surface antigen)Segun Kingsley Other [employer] Other [id number] virus vaccine, unspecified formulationBarney [facility]'S Medical Center09-28-2022influenza, high dose seasonal, preservative-freeBenstacia Kingsley Other [employer] Other [id number] conjugate vaccine, 13 valent NOE SVITLANA [facility]12-08-2021COVID-19 Vaccine Pfizer - Documentation Purposes OnlySegun Kingsley Other [facility]12-08-2021SARS-CoV-2 (COVID-19) Ad26 vaccine, recombinantJENNIFER SVITLANA [facility]10-25-2021influenza virus vaccine, split virus (incl. purified surface antigen)Segun Kingsley Other [employer] Other [id number] virus vaccine, unspecified formulationBarney [facility]'S Medical Center09-01-2021influenza virus vaccine, unspecified formulationJENNIFER SVITLANA [facility]04-13-2021diphtheria, tetanus toxoids and acellular pertussis vaccine, unspecified formulationBenkenrickmin Ball Other [facility]04-13-2021tetanus toxoid, reduced diphtheria toxoid, and acellular pertussis vaccine, adsorbed NOE SVITLANA [facility]04-02-2021COVID-19, mRNA, LNP-S, PF, 30 mcg/0.3 mL doseJENNIFER SVITLANA [facility] HospitalComment on above:Reason for Medication: Gfahhtawiqi62-08-0606VKFEY-31, mRNA, LNP-S, PF, 30 mcg/0.3 mL doseJENNIFER SVITLANA [facility] HospitalComment on above:Reason for Medication: Ofzruubfjlw79-32-5021ujkeoiizzdfh polysaccharide vaccine, 23 valentBenjamin Ball Other [facility]11-17-2020influenza virus vaccine, split virus (incl. purified surface antigen)Segun Kingsley Other [employer] Other [id number] virus vaccine, unspecified formulationBar[facility]'S Medical Center11-16-2020influenza virus vaccine, unspecified formulationJENNIFER SVITLANA [facility]10-31-2018influenza virus vaccine, split virus (incl. purified surface antigen)Segun Kingsley Other [employer] Other 898380-10-3883exyyyqrhe virus vaccine, unspecified formulationJENNIFER SVITLANA [facility]01-18-2018influenza virus vaccine, split virus (incl. purified surface antigen)Segun Kingsley Other [employer] Other [id number] virus vaccine, unspecified formulationBarney [facility]'S Medical Center Payers DatePayer CategoryPayerPolicy [id number]-pay2024Medicare [id number] Health Insurance [id number] 2.[id number] 2.16.840.1.861103.3.579.2.593 [id number] 2.16.840.1.458434.3.57[id number] 2.16.840.1.777797.3.57[id number] 2.16.840.1.465431.3.57[id number] 2.16.840.1.078035.3.57[id number] 2.16.840.1.328466.3.57[id number] 2.16.840.1.319897.3.57[id number] 2.16.840.1.481095.3.57[id number] 2.16.840.1.216396.3.57[id number] 2.16.840.1.547577.3.57[id number] 2.16.840.1.450091.3.57[id number] 2.16.840.1.708656.3.57[id number] 2.16.840.1.196541.3.57[id number] 2.16.840.1.6[id number] 2.16.840.1.167361.3.579.2.531 Social History DateTypeDetailFacilityStart: 07-13-2022 End: 50-83-9928Wmohbxa smoking statusNever smoked tobacco (finding)[facility]: 69-19-7582Faibltj smoking statusNeverExecutive [facility] Centertart: 82-06-9946Hqc [facility]igned At [facility]: 02-26-3856Yuq [facility] 11-27-2020 End: 84-08-4032VglJciuha (finding)[facility] Hospitalexual OrientationExec[facility] of [facility] Tobacco smoking status NHISTobacco smoking consumption unknownNOIN HealthcareStart: 09-51-7363Uaudbfj of Social functionNOIN Healthcare Start: 84-85-3702Chr assigned at birthNot on [facility] Functional Status RmkrXrjjvbsacfYkuocpGnkxynlc43-18-0902Sgsvlzwxiy StatusN/AExecutive Urology of [facility] Company10-19-2022Functional StatusN/AExec[facility] of [facility] Clinical Notes 07-13-2022 to 04-18-2025 Note Date & QhepOonxExwxxakj59-38-4505 Evaluation note* Diagnosis Onset Date Resolution Status Admit Date Elevated cholesterol acuteJuly 2024 9:17amEssential (primary) hypertensionacuteJuly 2024 9:17amGastroesophageal reflux 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acute April 18, 2025 9:17amIFG (impaired fasting glucose)acuteJuly 2024 9:17am Lumbar spondylosisacuteJu2024 9:17amPrimary insomniaacuteJu2024 9:17amRecurrent major depressive disorder, in full remissionacuteApril 18, 2025 9:17amScreening mammogram for breast cancernoneactiveApril 18, 2025 9:17amWellness examinationnoneactiveJuly 2024 9:17am [facility] Work Phone: 1(372) 824-145006-09-2025 Hospital Discharge instructions Patient Education 03/03/2025 12:04:21 [...] include: ?8 oz (237 mL) of milk, qdplwdm-sepqmrnrsolr-oeiul milk, and calcium- fortifiedfruit juice. Calcium-fortified means [...] ?Spinach (cooked), rhubarb, beets, sweet potatoes, and [place] chard. ?Peanuts. ?Potato chips, argentine fries, and baked potatoes with skin on. ?Nuts and nut products. ?Chocolate. If you regularly take a diuretic medicine, make sure to eat at least 1 or 2 servings of fruits or vegetables that are high in potassium each day. These include: ?Avocado. ?Banana. ?[place], prune, carrot, or tomato juice. ?Baked potato. [...] magnesium, fish oil, or vitamin B6. Take buyl-ujv-auuwbgq and prescription medicines only as told by [...] provider. Document Revised: 12/22/2022 Document Reviewed: 12/22/2022 [employer] Patient Education 2023 cloudControl. Follow Up Care 02/20/2024 15:25:41 With:MARCY GRESHAM, Enrique Layne, URL Address: [facility] [address] , [place] [address]- When: Unknown [facility] 06-09-2025 NotePatient Education Nephrology Dietary Guidelines to [...] ? 8 oz (237 mL) of milk, kdpkdbk-uxazqwzzemhh-kotoq milk, and calcium- fortifiedfruit juice. Calcium-fortified means [...] Spinach (cooked), rhubarb, beets, sweet potatoes, and [place] chard. ? Peanuts. ? Potato chips, argentine fries, and baked potatoes with skin on. ? Nuts and nut products. ? Chocolate. ??? If you regularly take a diuretic medicine, make sure to eat at least 1 or 2 servings of fruits or vegetables that are high in potassium each day. These include: ? Avocado. ? Banana. ? [place], prune, carrot, or tomato juice. ? Baked [...] fish oil, or vitamin B6. ??? Take exna-ody-pedlnqj and prescription medicines only as told by your health (more content not included)...[facility]03-10-2025 Evaluation note* Diagnosis Onset Date Resolution Status Admit Date Elevated cholesterol acuteMarch 2024 10:28amEssential (primary) hypertensionacuteMarch 2024 10:28amGastroesophageal reflux 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 acuteMarch 2024 10:28amLumbar spondylosisacuteMarch 2024 10:28am Primary insomniaacuteMarch 2024 10:28amRecurrent major depressive disorder, in full remissionacuteMarch 2024 10:28amRhinitisnoneactiveMarch 2024 10:28am [facility] Work Phone: 1(102) 169-977612-31-2024 Evaluation note* Diagnosis Onset Date Resolution Status Admit Date Abdominal pain acuteDecember 2023 10:46amChange in bowel habitnoneactiveDecember 2023 10:46amElevated cholesterolacuteMarch 2024 10:28amEssential (primary) hypertensionacuteMarch 2024 10:28amGastroesophageal reflux 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acuteMarch 2024 10:28amLumbar spondylosis acuteMarch 2024 10:28amPrimary insomniaacuteMarch 2024 10:28am Recurrent major depressive disorder, in full remissionacuteMarch 2024 10:28am [facility] Work Phone: 1(775) 909-431211-01-2024 Evaluation note* Diagnosis Onset Date Resolution Status Admit Date Allergic contact dermatitis due to cloth ing acuteNov2023 8:51amChronic venous insufficiency of lower extremity acuteJuly 26, 2024 8:51amElevated cholesterolacuteNovember 2023 9:17amEssential (primary) hypertensionacuteNovember 2023 9:17am Gastroesophageal reflux 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acuteNov2023 9:17amLumbar spondylosisacuteNov2023 9:17amPrimary insomniaacuteAugust 07, 2024 9:17amRecurrent major depressive disorder, in full remissionacuteAugust 07, 2024 9:17am [facility] Work Phone: 1(609) 507-491505-28-2024 Hospital Discharge instructions Patient Education 02/20/2024 16:06:08 [...] include: ?8 oz (237 mL) of milk, xqgioiw-vruxhpklacjy-nirvm milk, and calcium- fortifiedfruit juice. Calcium-fortified means [...] ?Spinach (cooked), rhubarb, beets, sweet potatoes, and [place] chard. ?Peanuts. ?Potato chips, argentine fries, and baked potatoes with skin on. ?Nuts and nut products. ?Chocolate. If you regularly take a diuretic medicine, make sure to eat at least 1 or 2 servings of fruits or vegetables that are high in potassium each day. These include: ?Avocado. ?Banana. ?[place], prune, carrot, or tomato juice. ?Baked potato. [...] magnesium, fish oil, or vitamin B6. Take evdq-rra-hhwagev and prescription medicines only as told by [...] provider. Document Revised: 12/22/2022 Document Reviewed: 12/22/2022 [employer] Patient Education 2022 cloudControl. 02/20/2024 16:06:04 Kidney Stones, Csyj-ro-Riuj Kidney Stones Kidney stones are rock-like masses [...] Follow these instructions at home: Medicines Take icwu-kym-vyseruc and prescription medicines only as told by [...] provider. Document Revised: 05/16/2022 Document Reviewed: 05/16/2022 [employer] Patient Education 2022 cloudControl. [facility] Evaluation [facility]* Encounter Date Diagnosis Assessment Notes Treatment Notes Treatment Clinical Notes Sep, COVID-19 (ICD-10 - U07.1) [employer] Other 01-15-2024 Evaluation note* Encounter Date Diagnosis [...] interruption. Instructed to avoid d/c meds abruptly [facility] Other 12-26-2023 Evaluation note* Encounter Date Diagnosis [...] needed - XR to r/o compression fx [facility] Other 12-26-2023 Evaluation note* Encounter Date Diagnosis [...] needed - XR to r/o compression fx [facility] Other 12-20-2023 Evaluation note* Encounter Date Diagnosis Assessment Notes Treatment Notes Treatment Clinical Notes Aug, Nontoxic single thyr oid nodule (ICD-10 - E04.1) Serial US w/ stable size and appearance. Referred to ENT w/ no further scans recommended. [facility] Other 10-25-2023 Evaluation note* Encounter Date Diagnosis [...] Amlodipine to 5mg qd while taking Paxlovid [facility] Other 07-17-2023 Evaluation note* Encounter Date Diagnosis [...] and yearly mammogram - due in [facility] Other 05-03-2023 Evaluation note* Encounter Date Diagnosis [...] pneumonia Due for COVID booster and Shingrix [facility] Other 03-14-2023 Evaluation note* Encounter Date Diagnosis [...] or drinking prior to bedtime. Continue PPI [facility] Other 10-19-2022 Hospital Discharge instructions Patient Education 07/13/2022 13:30:11 Kidney Stones, Fwtw-wc-Jqqk Kidney Stones Kidney stones are rock-like masses [...] Follow these instructions at home: Medicines Take gpzd-kkz-himrarp and prescription medicines only as told by [...] 02/27/2009 Document Revised: 01/28/2020 Document Reviewed: 01/28/2020 [employer] Patient Education 2020 cloudControl. Follow Up Care 10/18/2021 12:21:40 With:SVITLANA IBARRA, NOE Anderson, URL Address: [facility] [address] [facility] [place] [address] [phone] When: Unknown [facility] 10-19-2022 Evaluation + Plan note Future Scheduled Tests Laboratory* Basic Metabolic Panel 07/13/22 [facility] evaluation + Plan note Future Appointments Appointment Date:02/24/2025 09:15:00 AM Scheduled Provider:Enrique VÁSQUEZ MD Location:[facility] Appointment Type:URO Office Visit [facility] evaluation + Plan note Future Appointments Appointment Date:02/24/2025 09:15:00 AM Scheduled Provider:Enrique VÁSQUEZ MD Location:[facility] Appointment Type:URO Office Visit Diagnostic Tests Pending * [facility] Future Appointments Appointment Date:03/02/2026 10:30:00 AM Scheduled Provider:Enrique VÁSQUEZ MD Location:[facility] Appointment Type:URO Office Visit [facility] evaluation noteNo Deep DomainDe [employer] Other Evaluation note* Diagnosis Onset Date Resolution Status Plantar fasciitis of right foot noneactiveRight foot painProMedica Flower Hospital Work Phone: evaluation note* Diagnosis Onset Date Resolution Status Plantar fasciitis of right foot noneactiveRight foot painnoneactiveEssential (primary) hypertensionacute OsteoporosisacuteAvulsion fracture of metatarsal bone of right footProMedica Flower Hospital Work Phone: Evaluation note* Diagnosis Onset Date Resolution Status Plantar fasciitis of right foot noneactiveRight foot painnoneactiveOsteoporosisacuteAvulsion fracture of metatarsal bone of right footProMedica Flower Hospital Work Phone: evaluation note* Diagnosis Onset Date Resolution Status IBS (irritable bowel syndrome) acuteLow back painacuteElevated cholesterolacuteEssential (primary) hypertension acuteGastroesophageal reflux 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acute Lumbar spondylosisacuteOsteoporosisacutePrimary insomniaacuteRecurrent major depressive disorder, in full remissionacuteScreening mammogram for breast cancer noneactive [facility] Work Phone: evaluation note* Diagnosis Onset Date Resolution Status IBS (irritable bowel syndrome) acuteLow back painacuteElevated cholesterolacuteEssential (primary) hypertension acuteGastroesophageal reflux 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acute Lumbar spondylosisacutePrimary insomniaacuteRecurrent major depressive disorder, in full remissionacuteScreening mammogram for breast cancernoneactiveWellness examinationnonMercy Health Work Phone: Evaluation noteNo assessment information available [facility] Work Phone: evaluation note* Diagnosis Onset Date Resolution Status Admit Date Elevated cholesterol acuteJuly 2024 9:17amEssential (primary) hypertensionacuteJuly 2024 9:17amGastroesophageal reflux 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acute April 18, 2025 9:17amLumbar spondylosisacuteJuly 2024 9:17amPrimary insomniaacuteJuly 2024 9:17amRecurrent major depressive disorder, in full remissionacuteJuly 2024 9:17amScreening mammogram for breast cancer noneactiveJuly 2024 9:17amWellness examinationnoneactiveJuly 2024 9:17am [facility] Work Phone: History general Narrative - Reported* [...] NephrolithiasisMedical HistoryAllergic conjunctivitis, bilateralSurgical History ESWL, KIDNEY, [id number] HistoryFINE NEEDLE ASPIRATION, NODULE, THYROID 2020Surgical EiihrdcNXNFBXRQEJK5734Vsjbmpay HistoryTAH/XHI0104Vdwtxcqzaupgqcf HistorySEE SURGICAL HX [facility] [employer] Other History general Narrative - ReportedNoNazareth Hospital [employer] Other Hospital course Narrative No data available for this section [facility] Hospital Discharge instructions No data available for this section [facility] No data available for this section [facility] reason for referral (narrative)* Reason Referral for treatme nt of chronic low back pain Diagnosis 1 Acute bilateral low back pain without sciatica (M54.50) Diagnosis 2 Lumbar spondylosis ( M47.816) Referral Organization [facility] aSncho rivas Referring Provider First Name Segun Referring Provider Last Name Sancho Referring Provider Specialty Internal Me dicvictor hugo Referred Organization [facility] Referred Address [address] [place], [place],[address] Referred Provider Specialty Pain Medicin e Referral [...] for injections. Clinical Notes Include XR results [facility] Other Reason for referral (narrative)No reason for referral information availableReg[facility] Work Phone: Summary Purpose Family History Relationship [...] Date Segun Kingsley DO PCP - GeneralInternal Syrnrevp03/7/23 REASON FOR VISIT (unrecogniz ed section and content) 3 month Follow upPossible Sp ider [phone] COVID +No Informationback painback painXR results6 monthCOVID + INFORMATION SOURCE (unrecogn ized section and content) DATE CREATED AUTHOR 01/27/2023 [facility] DATE CREATED AUTHOR AUTHOR'S ORGANIZ ATION 09/14/2023 [facility] EPIC DATE CREATED AUTHOR AUTHOR'S ORGANIZ ATION 05/07/2024 [facility] DATE CREATED AUTHOR AUTHOR'S ORGANIZ ATION 03/04/2025 [facility] DATE CREATED AUTHOR AUTHOR'S ORGANIZ ATION 03/05/2025 [facility] Goals (unrecognized section and content) [...] BE BASED ON THE PRIMARY CLINICAL RECORDS. [employer] provides no warranty or guarantee of the accuracy or completeness of information in this document.
== END 2025-08-14 14:42 | disposition home or self-care (01) ==
PROVIDERS: PCP Internal Medicine; Visit Provider Nurse Practitioner
DX: M25.562 Pain in left knee (principal)
CPT/HCPCS: 73564

== ENCOUNTER 2025-08-25 07:58 | Day surgery (SDC) | payer OTHER, SELFPAY ==
--- OUTSIDE RECORDS SUMMARY | 2025-08-25 08:02 | XMS_ITS | Clinical Summary ---
Author Organization [facility] Healthcare Address [address] [place] [address] Care Team Providers Care Structured Cabling Technician Name Role Phone Segun Kingsley DO Primary Care Provider [phone] Allergies No known active allergies Medications MedicationSigDispense [...] same timeActive Active Problems ProblemNoted DateDiagnosed DateThyroid ldlmvb1809/07/20239327Kfikfizuwjzg58/14/2023 Depression with xvlwknn9509/07/20231915Mpuhxz56/14/2023hronic back pain09/07/2023 Irritable bowel syndrome with wvjbzejyaobq29/14/2023Lumbar vzjuvnjpric33/14/2023 Family History Medical HistoryRelationNameCommentsHeart failureFatherCancerMotherHypertension MotherHeart failurePaternal GrandfatherRelationNameStatusCommentsFatherMother Paternal Grandfather Social History Tobacco UseTypesPacks/DayYears UsedDateSmoking Tobacco: NeverSmokeless Tobacco: Never Tobacco Cessation:Counseling Given: Not Answered Alcohol UseStandard Drinks/WeekCommentsNot Currently0 (1 standard drink = 0.6 oz pure alcohol)CommentsUnknownSex and Gender InformationValueDate Recorded Sex Assigned at BirthNot on fileLegal MpvRlzyxw72/15/2023 6:37 PM EDTGender IdentityNot on fileSexual OrientationNot on file Last Filed Vital Signs Vital SignReadingTime TakenCommentsBlood Dsjdtmef885/6909/13/2023 11:08 AM EST Pulse--Temperature--Respiratory Rate--Oxygen Saturation--Inhaled Oxygen Concentration--Mexlbp84.5 kg (151 lb)09/14/2022 12:00 PM RWMHtroup611.6 cm (5' 4 )09/14/2022 12:00 PM ESTBody Mass Index25.9209/14/2022 12:00 PM EST Plan of Treatment Not on file Insurance * Guarantor: Zaria Corona TypeRelation to PatientDate of BirthPhone Billing AddressPersonal/[id number] [address] Care Teams Team MemberRelationshipSpecialtyStart DateEnd Date Segun Kingsley DO PCP - GeneralInternal Uuynpuvd18/7/23
--- OUTSIDE RECORDS SUMMARY | 2025-08-25 08:03 | XMS_ITS | CCD ---
Author Organization [facility] Care Team Providers Care Government Relations Director Name Role Phone SEGUN KINGSLEY Primary Care [...] Unavailable Segun Kingsley DO Primary Care Provider [phone] Sancho LEUNG, Segun Attending Provider Segun Kingsley DO Primary Care Provider [phone] Segun Kingsley DO Attending Provider Mgao Tan MD Attending Provider Segun Kingsley DO Primary Care Provider Allergies Allergy ClassificationReported Allergen(s)Allergy TypeDate of OnsetReaction(s) Facility (2 sources)patient allergy list reviewed by nurse or physiciaPropensity to adverse gwejjmrms49-96-7531Swhbjgr:intelworks Other (2 sources)No Known Medication Allergies; Translations: [No Known Medication Allergies]Propensity to adverse reactions (disorder)[facility] Repository Medications Current Medications MedicationDrug Class(es)DatesSig (Normalized)Sig (Original)acetaminophen 500 mg oral tablet (4 sources)Start: 80-09-0458bqck 500 mg by mouth twice dailyTylenol 500 mg, Oral, BID Start Date: 05/05/21 Status: Ordered Repeat number: [id number] actuat albuterol 0.09 mg/actuat metered dose inhaler (12 sources)beta2-Adrenergic AgonistStart: 90-50-9893pzxj 2 puff(s) by inhalation every four hours as neededStart: 32-77-5494jtjd 2 puff(s) by inhalation every four hours as neededAlbuterol Sulfate HFA 108 (90 Base) MCG/ACT 2 puffs as needed Inhalation every 4 hrs Oct, Not-TakingStart: 10-71-2102Vsgvd: 59-44-9079xoji 2 puff(s) by inhalation every four hours as neededAlbuterol Sulfate HFA 108 (90 Base) MCG/ACT 2 puffs as needed Inhalation every 4 hrs Oct, Not-TakingamLODIPine 10 mg oral tablet (20 sources)Dihydropyridine Calcium Channel BlockerStart: 73-53-7583plrj 1 tablet by mouth once dailyStart: 12-18-2023 End: 03-98-6777scka 1 tablet by mouth once dailyAmlodipine 10 mg tablet Discontinued 10 MG PO Daily April 15, 2024 2:43pm April 24, 2025 5:27pm Start: 71-92-6662nicl 1 tablet by mouth once dailyamLODIPine 5 mg Tab 5 mg = 1 tab(s), Oral, Daily Start Date: 05/05/21 Status: Ordered Repeat number:1take 1 tablet by mouth once dailyatorvastatin 40 mg oral tablet (20 sources)HMG-CoA Reductase InhibitorStart: 68-06-1728niwd 1 tablet by mouth once daily in the eveningStart: 11-29-2023 End: 24-59-8730gzlh 1 tablet by mouth once daily in the eveningAtorvastatin 40 mg tablet Discontinued 0 .ROUTE .COMPLEX November 29, 2023 10:55pm April 1542:47pm TAKE ONE TABLET BY MOUTH ONCE DAILY IN THE EVENINGStart: 11-29-2023 End: 82-12-6153qaqa 1 tablet by mouth once daily in the eveningAtorvastatin Discontinued 0 .ROUTE .COMPLEX November 29, 2023 10:55pm April 15, 2024 2:47pm TAKE ONE TABLET BY MOUTH ONCE DAILY IN THE EVENINGStart: 93-89-1788csbe 1 tablet by mouth once daily in the eveningAtorvastatin Active 0 .ROUTE .COMPLEX November 29, 2023 10:55pm TAKE ONE TABLET BY MOUTH ONCE DAILY IN THE EVENINGStart: 05-05-2021 End: 29-68-7723nejx 1 tablet by mouth once dailyAtorvastatin 40 mg tablet Discontinued 40 MG PO Daily April 15, 2024 2:43pm November 21, 2024 10:47pmazelastine hydrochloride 0.137 mg/actuat metered dose nasal spray (20 sources)Histamine-1 Receptor AntagonistStart: 86-59-9398agqv 1 puff(s) nasal route twice dailytake 1 puff(s) nasal route twice dailyAzelastine HCl 137 MCG/SPRAY 1 puff in each nostril Nasally Twice a day Activecalcium carbonate 1500 mg oral tablet (4 sources)Start: 59-38-2249tisw 1 tablet by mouth twice dailycalcium (as carbonate) 600 mg oral tablet 600 mg = 1 tab(s), Oral, BID Start Date: 05/05/21 Status: Ordered Repeat number: 1FLUoxetine 40 mg oral capsule (20 sources)Serotonin Reuptake InhibitorStart: 09-26-2024 End: 08-40-7954msgr 1 capsule by mouth once dailyStart: 03-29-2024 End: 75-59-3511bqdp 1 capsule by mouth once dailyFluoxetine 40 mg capsule Discontinued 0 .ROUTE .COMPLEX March 29, 2024 8:44am April 15, 2024 2:47pm TAKE ONE CAPSULE BY MOUTH ONCE DAILYStart: 05-05-2021 End: 54-02-9865kgqe 1 capsule by mouth once dailyFluoxetine 40 mg capsule Discontinued 40 MG PO Daily April 15, 2024 2:44pm September 26:55pm fluticasone propionate 0.05 mg/actuat metered dose nasal spray (12 sources)CorticosteroidStart: 53-96-6160aqrs 1 spray(s) nasal route once dailyStart: 30-09-9060wzzc 1 spray(s) nasal route once dailyFluticasone Propionate 50 MCG/ACT 1 spray in each nostril Nasally Once a day for 21 days Oct, Not-TakingStart: 66-08-2459mcusaUJXTTOhxrmjxhr 12.5 mg oral capsule (20 sources)Thiazide DiureticStart: 03-03-2025 End: 87-68-3044aygr 1 capsule by mouth once dailyhydrochlorothiazide 12.5 mg Cap 12.5 mg = 1 cap(s), Oral, Daily, X 90 day(s), # 90 cap(s), Refills(s) 3, Pharmacy: [facility], 163, cm, 03/03/25 11:35:00 EDT, Height/Length Dosing, 67, kg, 03/03/25 11:35:00 EDT, Weight Dosing Start Date: 03/03/25 Stop Date: 02/26/26 Status: Ordered Quantity: 90.0 Unit: cap(s) Repeat number: 4Start: 85-31-0994Ooags: 30-42-5596evga 12.5 mg by mouth once dailyHydrochlorothiazide Active 12.5 MG PO Daily April 15, 2024 2:42pmStart: 06-08-2022 End: 65-87-5830camh 1 tablet by mouth once dailyHydrochlorothiazide 25 mg tablet Discontinued 25 MG PO Daily December 18, 2023 12:00am April 15, 2024 2:47pm Lisinopril (12 sources)Angiotensin Converting Enzyme InhibitorLisinopril Not-Taking/PRN Lisinopril Not-TakingmethylPREDNISolone 4 mg oral tablet (12 sources)CorticosteroidStart: 88-00-6479Kctit: 50-22-5864jexrmwdmbf 40 mg delayed release oral capsule (20 sources)Proton Pump InhibitorStart: 20-29-2890wekd 1 capsule by mouth once daily at breakfastStart: 10-18-2021 End: 29-60-0026juuf 1 capsule by mouth once daily at breakfastOmeprazole 40 mg capsule,delayed release(DR/EC) Discontinued 40 MG PO Daily April 15, 2024 2:44pm October 23, 2024 7:04pm ON AN EMPTY STOMACH, FOLLOWED IN 30 MINS BY BREAKFASTpaxlovid (300/100) 20 x 150 mg & 10 x 100mg tablet therapy pack (2 sources)Start: 87-74-9366hkjl 3 tablets by mouth every twelve hoursPaxlovid (300/100) 20 x 150 MG & 10 x 100MG 3 tablets Orally Twice a day for 5 days Sep, ActiveStart: 01-93-7399Okyhqvhu (300/100) 20 x 150 MG & 10 x 100MG as directed Orally bid for 5 days Jun, ActivePotassium Bicarb & Chloride (12 sources)Potassium Bicarb & Chloride 20 MEQ packet daily ActivePotassium Bicarb And Chloride (7 sources)Start: 96-25-8788Mdicpdibm Bicarb And Chloride Active 1 PACKET PO Daily December 18, 2023 12:00amPotassium Bicarb And Chloride 20 mEq packet (5 sources)Start: 25-83-6640ttoo 20 mEq by mouth once dailyStart: 42-93-8397qxrc 20 mEq by mouth once dailyPotassium Bicarb And Chloride 20 mEq packet Active 1 PACKET PO Daily December 18, 2023 12:00am Complies with drug therapyStart: 78-11-5043bvtn 20 mEq by mouth once dailyPotassium Bicarb And Chloride 20 mEq packet Active 1 PACKET PO Daily December 18, 2023 12:00amStart: 18-12-3310uwwf 20 mEq by mouth once dailyPotassium Bicarb And Chloride 20 mEq packet Active 1 PACKET PO Daily December 17, 2023 11:00pmtiZANidine (12 sources)Central alpha-2 Adrenergic AgonisttiZANidine HCl Not-Taking/PRN tiZANidine HCl Not-TakingtraMADol (12 sources)Opioid AgonisttraMADol HCl Not-Taking/PRNtraMADol HCl Not-Taking triamcinolone acetonide 0.005 mg/mg topical ointment (20 sources)CorticosteroidStart: 30-44-8315Idare: 56-64-0251Pnceiojbgftwd Acetonide 0.5 % ointment Active 1 APPLIC TOPICAL Twice daily 45 July 262:00amStart: 74-14-6879Bcawwbozajxly Acetonide 0.5 % ointment Active 1 APPLIC TOPICAL Twice daily 45 July 251:00pmStart: 07-26-2024 Triamcinolone Acetonide Active 1 APPLIC TOPICAL Twice daily 45 July 26, 2024 12:00amStart: 90-26-1474Gmvhuhxhmfvcz Acetonide 0.025 % 1 application Externally twice daily as needed for 14 days ActiveVitamin D3 (4 sources)Start: 31-50-5882Tmmzgwf D3 1,000 International_Unit, Oral, Daily Start Date: 05/05/21 Status: Ordered Repeat number:1Start: 02-54-5971Wrjxcyu D3 1,000 International_Unit, Oral, Daily Start Date: 05/05/21 Status: Ordered{20 (nirmatrelvir 150 MG Oral Tablet) / 10 (ritonavir 100 MG Oral Tablet) } Pack [Paxlovid 5-Day] (1 source)Start: 67-77-3950Owemfgbg (300/100) 20 x 150 MG & 10 x 100MG as directed Orally bid for 5 days Jun, Active Completed/Discontinued Medications MedicationDrug Class(es)DatesSig (Normalized)Sig (Original)potassium bicarbonate 25 meq effervescent oral tablet (4 sources)Start: 04-24-2024 End: 24-58-9363qfba 1 tablet by mouth twice dailyKlor-Con/EF 25 mEq oral tablet, effervescent 25 mEq = 1 tab(s), Oral, BID, X 90 day(s), # 180 tab(s), Refills(s) 3, Pharmacy: [facility]/pharmacy #[id number], 163, cm, 02/20/24 14:56:00 EDT, Height/Length Dosing,68.1, kg, 02/20/24 14:56:00 EDT, Weight Dosing Start Date: 04/24/24 Stop Date: 04/19/25 Status: Ordered Quantity: 180.0 Unit: tab(s) Repeat number: 4 Start: 30-02-9267hrsr 1 tablet by mouth twice dailyKlor-Con/EF 25 mEq oral tablet, effervescent 25 mEq = 1 tab(s), Oral, BID, # 60 tab(s), Refills(s) 11, Pharmacy: [facility]/pharmacy #[id number], 163, cm, 02/13/23 14:27:00 EDT, Height/Length Dosing, 70, kg, 02/13/23 14:27:00 EDT, Weight Dosing Start Date: 04/10/23 Status: OrderedStart: 70-70-7440sbqm 1 tablet by mouth twice dailyEffer-K 25 mEq oral tablet, effervescent 25 mEq = 1 tab(s), Oral, BID, # 60 tab(s), Refills(s) 8, Ph armacy: [facility], 163, cm, 10/18/21 11:50:00 EST, Height/Length Dosing, 70, kg, 10/18/21 11:50:00 EST, Weight Dosing Start Date: 10/18/21 Status: OrderedpredniSONE 20 mg oral tablet (6 sources)Start: 07-26-2024 End: 02-49-8581Uffjqtasnh 20 mg tablet Discontinued 20 MG PO .COMPLEX 15 July 26, 2024 12:00am September 24, 2024 11:48am 20mg bid w/ food x 5 days then qd w/ food x 5 daystemazepam 15 mg oral capsule (20 sources)BenzodiazepineStart: 05-05-2021 End: 04-54-6901wsvz 1 capsule by mouth once daily at bedtime as neededTemazepam 15 mg capsule Discontinued 15 MG PO Daily at bedtime as needed for insomnia April 15, 2024 2:46pm September 06, 2024 5:06pm Problems Active Problems Problem ClassificationProblemDateDocumented DateEpisodic/ChronicAbdominal pain (20 sources)Flank pain; Translations: [Epigastric pain]Onset: 03-04-2015 40-28-0931VrhvpnfuBszat bronchitis (14 sources)Acute bronchitis; Translations: [Acute bronchitis, unspecified] Onset: 75-50-2021IuhwblumHdncvhad reactions (13 sources)Contact dermatitis; Translations: [Contact dermatitis and other eczema, due to unspecified cause]Onset: 337815-68-1031UejanidmLypmmox disorders (20 sources)Generalized anxiety disorder; Translations: [Generalized anxiety disorder]Onset: 450560-74-6780IxqxkkkRiitmvkv of urinary tract (20 sources)Kidney stone; Translations: [Calculus of kidney]Onset: 07-13-2022 EpisodicCardiac dysrhythmias (13 sources)Tachycardia; Translations: [Tachycardia, unspecified]Onset: 25-38-4332XrrjjndqMwcslvus mellitus without complication (8 sources)Impaired fasting glycemia; Translations: [Impaired fasting glucose] 85-50-6245EtymuhdxWpaennny of white blood cells (7 sources)Leukocytosis; Translations: [Elevated white blood cell count, unspecified]31-85-7667VgqkmwmYqfrkaqgd of lipid metabolism (20 sources)Hyperlipidemia; Translations: [Hypercholesterolemia]05-05-2021 ChronicDiverticulosis and diverticulitis (9 sources)Diverticulosis of sigmoid colon; Translations: [Diverticulosis of large intestine without perforation or abscess without bleeding]ChronicE Codes: Natural/environment (1 source)Bitten or stung by nonvenomous insect and other nonvenomous arthropods, initial encounterEpisodicEsophageal disorders (20 sources)Gastro-esophageal reflux disease with esophagitis; Translations: [Gastroesophageal reflux 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]Onset: 711498-34-2812NgryorhSvrgnbeok hypertension (20 sources)Hypertensive disorder; Translations: [Essential hypertension]Onset: 665754-23-7231YxqubkvGzcia and electrolyte disorders (20 sources)Hypokalemia; Translations: [Hypokalemia]Onset: 69-84-8298Szuhvktx Fracture of lower limb (3 sources)Fracture of unspecified metatarsal bone(s), right foot, initial encounter for closed fracture; Translations: [Closed fracture of metatarsal bone(s)]81-03-3686RlakcmrgIwdzllbpvjgaw symptoms and ill-defined conditions (20 sources)Microscopic hematuria; Translations: [Dysuria]Onset: 09-09-2016 78-85-9409YarwnusjRqhrhoiihdbwq and screening for infectious disease (7 sources)Vaccination given; Translations: [Encounter for immunization]Episodic Inflammation; infection of eye (except that caused by tuberculosis or sexually transmitteddisease) (9 sources)Acute atopic conjunctivitis; Translations: [Acute atopic conjunctivitis, bilateral]EpisodicMalaise and fatigue (20 sources)Fatigue; Translations: [Other fatigue]Onset: 45-48-6581Gnzxqqmv Miscellaneous mental health disorders (17 sources)Globus sensation; 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] 87-62-0419GluzzppSiqk disorders (20 sources)Single episode of major depression in full remission; Translations: [Major depressive disorder, single episode, in full remission]Onset: 09-25-1959 ChronicOsteoarthritis (4 sources)Zhieexdwu39-98-4901MdqaqjzHvjffrdrobwx (15 sources)Osteoporosis; Translations: [Age-related osteoporosis without current pathological fracture]99-93-2337FxhjabeEewjd circulatory disease (7 sources)Cardiovascular symptoms; Translations: [Other specified symptoms and signs involving the circulatory and respiratory systems]EpisodicOther congenital anomalies (7 sources)Congenital spondylolysis of lumbosacral region; Translations: [Congenital spondylolysis, lumbosacral region]Onset: 78-56-1712PodutbyGsfqp connective tissue disease (4 sources)Plantar fascial fibromatosis; Translations: [Plantar fascial fibromatosis]08-82-7104VxsnjxlmRhfkg connective tissue disease (4 sources)Pain in right foot; Translations: [Pain in limb]19-57-1567Uwltdjdj Other diseases of kidney and ureters (3 sources)Hydronephrosis due to ureteral duiceqzeuhk49-88-0669QfozsuidZoknw diseases of veins and lymphatics (5 sources)Venous insufficiency of leg; Translations: [Venous insufficiency (chronic) (peripheral)]34-94-9918BuzwaosbFeiln diseases of veins and lymphatics (1 source)Venous insufficiency (chronic) (peripheral); Translations: [Venous (peripheral) insufficiency, unspecified]75-74-1075DkhdsfemHsbyc ear and sense organ disorders (7 sources)Conductive hearing loss, bilateral; Translations: [Conductive hearing loss, bilateral]Onset: 01-26-7593AtbdhrrRemur ear and sense organ disorders (14 sources)Impacted cerumen; Translations: [Impacted cerumen, bilateral]Onset: 18-75-8232IrfiderpMlmyn gastrointestinal disorders (20 sources)Irritable bowel syndrome characterized by constipation; Translations: [Irritable bowel syndrome with constipation]Onset: 09-07-2023 15-36-7353CzfcuwyLhwpq gastrointestinal disorders (7 sources)Irritable bowel syndrome with diarrhea; Translations: [Irritable bowel syndrome with diarrhea]Onset: 90-46-0720WmsrkqnCyphj gastrointestinal disorders (15 sources)Irritable bowel syndrome; Translations: [Irritable bowel syndrome] 50-37-4309NrsxrphVblvr gastrointestinal disorders (2 sources)Irritable bowel syndrome without diarrhea; Translations: [Irritable bowel syndrome]38-69-3519TizvnihTwzce gastrointestinal disorders (1 source)Change in bowel habit; Translations: [Other symptoms involving digestive system]54-51-5357RivsfvddAadxi injuries and conditions due to external causes [...] and metabolic disorders (1 source)Hypercalcemia; Translations: [HYPERCALCEMIA]Onset: 35-68-6581Taakvbn Other screening for suspected conditions (not mental disorders or infectious disease) (7 sources)Imaging of genitourinary system abnormal; Translations: [Nonspecific (abnormal) findings on radiological and other examination of genitourinary organs]Onset: 30-65-7893TopbcuqKmyui screening for suspected conditions (not mental disorders or infectious disease) (20 sources)Encounter for screening mammogram for malignant neoplasm of breast; Translations: [Encounter for screening for diseases of the blood and blood- forming organs and certain disorders involving the immune mechanism]Onset: 03-31-2015 Resolved: 86-46-8787OdcwwhfxMnwtq upper respiratory disease (7 sources)Vasomotor rhinitis; Translations: [Vasomotor rhinitis]ChronicOther upper respiratory disease (7 sources)Seasonal allergic rhinitis; Translations: [Other seasonal allergic rhinitis]Onset: 60-23-8066FhknzpnSpfyt upper respiratory disease (19 sources)Allergic rhinitis due to pollen; Translations: [Allergic rhinitis due to pollen]31-47-5983KhvzpkkYdsqg upper respiratory disease (1 source)Chronic rhinitis; Translations: [Chronic rhinitis]94-28-2403Wlpedhj Other upper respiratory infections (7 sources)Chronic sinusitis; Translations: [Chronic sinusitis, unspecified] ChronicOther upper respiratory infections (20 sources)Acute pharyngitis; Translations: [Acute pharyngitis due to other specified organisms]Onset: 33-68-9147SfealtfmCkavpyhc codes; unclassified (12 sources)Insomnia; Translations: [Insomnia, unspecified]EpisodicResidual codes; unclassified (7 sources)Postmenopausal state; Translations: [Asymptomatic menopausal state] EpisodicSpondylosis; intervertebral disc disorders; other back problems (20 sources)Spondylitis; 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, lumbar region]Onset: 76-93-4729BkndpluBrpobvvegfh injury; contusion (1 source)Insect bite (nonvenomous) of unspecified part of head, initial encounterEpisodicSyncope (10 sources)Syncope and collapse; Translations: [Syncope and collapse]Onset: 54-78-6902OxbbtlywDbuhwtw disorders (20 sources)Cyst of thyroid; Translations: [Nontoxic single thyroid nodule] Onset: 78-25-1638EfmmsweQecrszypqskh (3 sources)CONTACT W/AND (SUSP) EXPOS COVID-19; Translations: [CONTACT W/AND (SUSP) EXPOS COVID-19]Onset: 51-46-7105Wzuluwhctlln (7 sources)Exposure to acute respiratory syndrome coronavirus 2; Translations: [Contact with and (suspected) exposure to COVID-19]Unclassified (3 sources)Urine rmafbvc46-11-9291 Past or Other Problems Problem ClassificationProblemDateDocumented DateEpisodic/ChronicBacterial infection; unspecified site (14 sources)Methicillin resistant Staphylococcus aureus infection; Translations: [Methicillin resistant Staphylococcus aureus infection, unspecified site]Onset: 08-71-6354DjyhqpzcZgljxxwcsc and other anemia (1 source)Anemia; Translations: [Anemia, unspecified]Onset: EpisodicEsophageal disorders (3 sources)Esophageal disordersGastritis and duodenitis (7 sources)Acute gastritis; Translations: [Acute gastritis without mention of hemorrhage]Onset: 66-12-7027GxupdrrlPousxgyn; including migraine (7 sources)Headache; Translations: [Headache, unspecified]Onset: 02-23-2015 EpisodicNausea and vomiting (7 sources)Nausea; Translations: [Nausea]Onset: 81-93-9509KodfxsmaForeqdglvbr chest pain (18 sources)Chest pain, unspecified; Translations: [Chest pain]Onset: 07-05-2016 EpisodicOther aftercare (1 source)Other mcc (current) drug therapy; Translations: [OTH MEDICATION TECHNICIAN CURRENT DRUG THERAPY]Onset: 92-85-6005UhnozivwMayiz aftercare (7 sources)Surgical follow-up; Translations: [Follow-up examination, following unspecified surgery]Onset: 83-13-4265PursivzcNimiz connective tissue disease (7 sources)Muscle pain; Translations: [Unspecified myalgia and myositis]Onset: 35-89-5453FyynkhheOgssk disorders of stomach and duodenum (7 sources)Disorder of function of stomach; Translations: [Dyspepsia and other specified disorders of functionof stomach]Onset: 93-73-0708VgtuwozvPhipw gastrointestinal disorders (7 sources)Heartburn; Translations: [Heartburn]Onset: 63-02-1211TsjkxfrkYzetq gastrointestinal disorders (7 sources)Diarrhea; Translations: [Diarrhea]Onset: 76-43-8245WstzxfaiBluxr gastrointestinal disorders (7 sources)Pharyngeal dysphagia; Translations: [Dysphagia, pharyngoesophageal phase]Onset: 64-29-3222ZfswiczyHpeds gastrointestinal disorders (7 sources)Flatulence, eructation and gas pain; Translations: [Abdominal distension (gaseous)]Onset: 75-08-1883MgtxrmuoUuwfe lower respiratory disease (7 sources)Cough; Translations: [Cough, unspecified]Onset: 84-95-7451Eceeeadf Other nutritional; endocrine; and metabolic disorders (9 sources)Loss of appetite; Translations: [Anorexia]Onset: 23-65-2871Kwsdvsfw Other nutritional; endocrine; and metabolic disorders (7 sources)Overweight; Translations: [Overweight]Onset: 22-49-1259UfhnhburAgddv nutritional; endocrine; and metabolic disorders (14 sources)Body mass index 25-29 - overweight; Translations: [Body mass index 27.0-27.9, adult]Onset: 16-90-9161UmalcvudUihsp nutritional; endocrine; and metabolic disorders (7 sources)Abnormal weight loss; Translations: [Abnormal weight loss]Onset: 34-01-3624SxrqvxidMayaq skin disorders (7 sources)Inflamed seborrheic keratosis; Translations: [Inflamed seborrheic keratosis]Onset: 39-05-5044ZumphofuErwsx skin disorders (7 sources)Sebaceous cyst; Translations: [Sebaceous cyst]Onset: 06-24-2015 EpisodicOther skin disorders (7 sources)Generalized hyperhidrosis; Translations: [Generalized hyperhidrosis] Onset: 53-30-0892JwpvkktiSsmeqa media and related conditions (14 sources)Otitis media; Translations: [Unspecified otitis media]Onset: 69-79-8970UmpatcbuUubrgix cyst (7 sources)Cyst of ovary; Translations: [Other and unspecified ovarian cyst] Onset: 10-14-2009 Resolved: 12-31-5011EjoztaizKrkaqfml codes; unclassified (1 source)Localized edema; Translations: [LOCALIZED EDEMA]Onset: 02-02-2022 EpisodicResidual codes; unclassified (7 sources)C/O - a back symptom; Translations: [Other symptoms referable to back]Onset: 42-47-4027PqpxmuenVddfgeot codes; unclassified (7 sources)Requires influenza virus vaccination; Translations: [Need for prophylactic vaccination and inoculation, Influenza]Onset: 80-98-6901Tgwwayep Residual codes; unclassified (7 sources)Flushing; Translations: [Flushing]Onset: 78-91-3469MdkmvcghUexj and subcutaneous tissue infections (7 sources)Carbuncle of neck; Translations: [Carbuncle of neck] Resolved: 97-09-9787PvqginocLcbpirurcsj; intervertebral disc disorders; other back problems (20 sources)Sciatica; Translations: [Lumbago with sciatica, left side]Onset: 490646-31-9054UmfxqriwYbegedn and strains (7 sources)Low back strain; Translations: [Strain of muscle, fascia and tendon of lower back, initial encounter]Onset: 78-33-4033EpsxwjzfLhprycbnsvyt (1 source)Vaccine counseling Z71.85Unclassified (1 source)CONTACT W/AND (SUSP) EXPOS COVID-19; Translations: [CONTACT W/AND (SUSP) EXPOS COVID-19]Onset: 62-03-7807Krdwaigetxvz (2 sources)Acute bilateral low back pain without sciatica M54.50Unclassified (4 sources)Acute bilateral low back pain without sciatica; Translations: [Acute bilateral low back pain without sciatica]Urinary tract infections (7 sources)Acute cystitis; Translations: [Acute cystitis without hematuria] Onset: 12-51-7915OmrlqmzwZqadv infection (2 sources)COVID-19 Results Test NameValueInterpretationReference RangeFacilityAmbulatory Visit Summaryon 62-82-4099Mlbmjajwpb Visit SummaryAmbulatory Visit Summary ZARIA CORONA :1955 [...] Enrique VÁSQUEZ MD Where: [facility] [address] [place] [address]- You Need to Schedule the Following Appointments Follow Up with Enrique VÁSQUEZ MD, URL When: Where: [facility] [address], [place] [address]- Medications What How Much When Instructions Unchanged [...] ? 8 oz (237 mL) of milk, ttitexd-ithrxaejknyw-gsbxq milk, and calcium- fortifiedfruit juice. Calcium-fortified means [...] content not included)...[facility]Amb[facility] Visit SummaryAmbulatory Visit Summary ZARIA CORONA :1955 [...] [facility] [address], [place] [address]- Medications What How Much When Instructions Unchanged [...] ? 8 oz (237 mL) of milk, jfuhyab-lxpwlzhbdmon-pwnjo milk, and calcium- fortifiedfruit juice. 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 U 24hr Ca 340 H. Citric acid 335 L. Taking Effer-K 25 mEq bid. Cont wo changes. Follow-up With When Contact Information MARCY GRESHAM, Enrique Layne, URL [facility] [address], [place] [address]- Additional Instructions: 1 yr with KUB and [...] acel/tetanus adult 04 (more content not included)...Normal [facility] HospitalComment on above:Result Comment: Electronically Signed By: Enrique VÁSQUEZ MD\.br\Date and Time Signed: 03/03/25 12:14 EDT\.br\Electronically Co-Signed By: Selma Allen\.br\Date and Time Co- Signed: 03/03/25 12:09 EDTInfluenza virus B Ag [Presence] in Upper respiratory specimen by Rapid immunoassayon 76-19-4894PKKCX Ag IA.rapid Ql (Nph)Influenza virus B Ag [Presence] in Upper respiratory specimen by Rapid immunoassay [facility] HospitalNo Panel Informationon 46-47-1187Rblyerstp Type A (Rapid)NegativeCleveland Clinic Union HospitalPOC SARS CoV-2 Antigen NegativeCleveland Clinic Union HospitalBasophils Auto (Bld) [#/Vol]on 29-54-4185Wneofasjp (Bld) [#/Vol]Automated basophil count0.0-0.1FMercy Health Allen HospitalBasophils/100 WBC Auto (Bld)on 28-54-6571Oewhhqfgz/100 WBC (Bld)Automated basophil %0.2-2.0[facility] Eosinophils/100 WBC Auto (Bld)on 32-07-5151Qmllyfbghmn/100 WBC (Bld)Automated eosinophil %0.9-7.0[facility] HospitalErythrocyte distribution width Auto (RBC) [Ratio]on 55-03-4969Jjvivljuwrw distribution width (RBC) [Ratio]Erythrocyte distribution width [Ratio] by Automated count11.0-15.0 [facility] HospitalEstimated glomerular filtration rate (GFR) non- Americanon 85-79-7837IUY/1.73 sq M.predicted among non-blacks MDRD (S/P/Bld) [Vol rate/Area]Estimated glomerular filtration rate (GFR) non->=60 mL/min/1.73m 2FMercy Health Allen HospitalGlobulin Calc (S) [Mass/Vol]on 02-15-7011Wscatmhn (S) [Mass/Vol]Serum globulin measurement by calculation (mass/volume)[facility] HospitalHematocrit Auto (Bld) [Volume fraction]on 40-48-9550Druaixaafd (Bld) [Volume fraction]Hematocrit [Volume Fraction] of Blood by Automated count36.0-48.0[facility] HospitalHemoglobin [Mass/volume] in Bloodon 03-86-4404Albnjjisjg (Bld) [Mass/Vol] Hemoglobin [Mass/volume] in Blood12.0-16.0[facility] Laboratory - Chemistry and Chemistry - challengeon 61-70-8074Xalrmpt [Mass/Vol] 3.5 g/dL3.4-5.0[facility] HospitalALP [Catalytic activity/Vol]167 U/AWdrx51-625YmqxivcaaCleveland Clinic Union HospitalALT [Catalytic activity/Vol]43 U/L 14-59[facility] HospitalAmylase [Catalytic activity/Vol]44 U/L 25-115[facility] HospitalAST [Catalytic activity/Vol]29 U/L15-37 [facility] HospitalBilirubin [Mass/Vol]0.4 mg/dL0.2-1.0[facility] HospitalCalcium [Mass/Vol]9.2 mg/dL8.5-10.1FMercy Health Allen HospitalChloride [Moles/Vol]102 mmol/V00-222JizozrcnrCleveland Clinic Union HospitalCO2 [Moles/Vol]27.8 mmol/L21.0-32.0[facility] Creatinine [Mass/Vol]0.84 mg/dL0.55-1.02[facility] GFR/1.73 sq M.predicted MDRD (S/P/Bld) [Vol rate/Area]mL/min/{1.73_m2}>=60 mL/min/1.73m 2FMercy Health Allen HospitalGlucose [Mass/Vol]100 mg/dF50-628 [facility] HospitalPotassium [Moles/Vol]3.5 mmol/L3.5-5.1FMercy Health Allen HospitalProtein [Mass/Vol]7.7 g/dL6.4-8.2FKettering Health Troyodium [Moles/Vol]139 mmol/J452-378EpxvfevpxCleveland Clinic Union HospitalUrea nitrogen [Mass/Vol]14.0 mg/dL7.0-18.0[facility] HospitalUrea nitrogen/Creatinine [Mass ratio]16.7 mg/mgCleveland Clinic Union HospitalLaboratory - Hematology and Cell countson 16-07-9616Zdosqyzr granulocytes/100 WBC (Bld)0.3 %0.0-0.5FMercy Health Allen Hospital Leukocytes [#/volume] corrected for nucleated erythrocytes in Blood by Automated counon 63-56-7637RDW corrected for nucl RBC Auto (Bld) [#/Vol]Leukocytes [#/volume] corrected for nucleated erythrocytes in Blood by Automated coun 4.0-11.0[facility] HospitalLymphocytes Auto (Bld) [#/Vol]on 03-29-5936Tmcflvumslp (Bld) [#/Vol]Lymphocytes [#/volume] in Blood by Automated count1.2-3.8[facility] HospitalLymphocytes/100 WBC Auto (Bld)on 16-39-3109Nqpykcxhgnb/100 WBC (Bld)Lymphocytes/100 leukocytes in Blood by Automated count20.5-60.0[facility] SystemH Auto (RBC) [Entitic mass]on 73-17-6046QCS (RBC) [Entitic mass]MCH [Entitic mass] by Automated count 26.7-34.0[facility] HospitalMCHC Auto (RBC) [Mass/Vol]on 33-63-7180RGTF (RBC) [Mass/Vol]MCHC [Mass/volume] by Automated count29.9-35.2 [facility] HospitalMCV Auto (RBC) [Entitic vol]on 38-71-6320EFT (RBC) [Entitic vol]MCV [Entitic volume] by Automated count81.0-99.0[facility] HospitalMonocytes Auto (Bld) [#/Vol]on 87-12-9015Oshkpkwiu (Bld) [#/Vol]Automated blood monocyte count0.3-0.8[facility] Monocytes/100 WBC Auto (Bld)on 64-71-6466Zfsgutmok/100 WBC (Bld)Automated monocyte %1.7-12.0[facility] HospitalNeutrophils Auto (Bld) [#/Vol]on 64-55-5035Wvkcgkzqoch (Bld) [#/Vol]Neutrophils [#/volume] in Blood by Automated countHigh1.4-6.5FMercy Health Allen HospitalNeutrophils/100 WBC Auto (Bld)on 06-22-7951Leikmlhmsdp/100 WBC (Bld)Automated neutrophil %43.0-75.0 [facility] HospitalNo Panel Informationon 39-62-1594Gwerbuchfbz # (Auto)0.2 10 3/uL0.0-0.7FMercy Health Allen HospitalImmature Granulocyte # (Auto)0.03 10 3/uL0.00-0.03[facility] HospitalPlatelet mean volume Auto (Bld) [Entitic vol]on 14-09-7745Pmuzblcw mean volume (Bld) [Entitic vol] Platelet mean volume [Entitic volume] in Blood by Automated countLow9.5-13.5 [facility] HospitalPlatelets Auto (Bld) [#/Vol]on 09-24-2024 Platelets (Bld) [#/Vol]Platelets [#/volume] in Blood by Automated -637 [facility] HospitalRBC Auto (Bld) [#/Vol]on 28-81-6392HJB (Bld) [#/Vol]Erythrocytes [#/volume] in Blood by Automated count4.20-5.40[facility] Centererum or plasma albumin/globulin mass ratioon 09-24-2024 Albumin/Globulin [Mass ratio]Serum or plasma albumin/globulin mass ratio [facility] Centererum or plasma anion gap determinationon 81-21-9848Mpxig gap [Moles/Vol]Serum or plasma anion gap determinationCleveland Clinic Union HospitalBasophils Auto (Bld) [#/Vol]on 20-33-1400Wfhrxxthb (Bld) [#/Vol]0.1 10 3/uL0.0-0.1FMercy Health Allen HospitalBasophils/100 WBC Auto (Bld)on 10-54-7807Gevxhamuk/100 WBC (Bld)0.5 %0.2-2.0[facility] HospitalEosinophils/100 WBC Auto (Bld)on 06-75-6159Mzxzdyptgss/100 WBC (Bld)3.0 % 0.9-7.0[facility] HospitalErythrocyte distribution width Auto (RBC) [Ratio]on 13-74-3533Ivkipqgtsfn distribution width (RBC) [Ratio]15.0 % 11.0-15.0[facility] HospitalGlucose mean value [Mass/volume] in Blood Estimated from glycated hemoglobinon 27-93-6650Gxvdnoo glucose Estimated from glycated hemoglobin (Bld) [Mass/Vol]117 mg/dLCleveland Clinic Union HospitalHematocrit Auto (Bld) [Volume fraction]on 72-76-1834Npkjolvnaq (Bld) [Volume fraction]41.1 %36.0-48.0[facility] HospitalHemoglobin [Mass/volume] in Bloodon 63-51-0360Kkmfaiprsy (Bld) [Mass/Vol]13.2 g/dL12.0-16.0 [facility] HospitalLon 60-79-9018DFtgvluem: [id number] Received: 05/06/24 Status: MARY Req Num: [id number] Spec Type: Impression Subm Dr: Segun Kingsley DO Tissues: PATHPER Procedures: PATHREVIEW Age/ Patient Sex Location Account Attending Physician Zaria Corona 68/F LABELL [id number] Segun Kingsley DO SPEC NUM: [id number] RECD: 05/06/24 STATUS: MARY ELIO NUM: [id number] KYRIE: 05/06/[address]: Segun Kingsley DO ENTERED: 05/06/[address]: Marj,Lab SPEC TYPE: Impression DEPT: GARRETT Myles ENTERED BY: [id number] RECV BY: [id number] ORDERED: PATHREVIEW ORDERED: PATHREVIEW Pathologist Review Abnormal [...] inflammation, or underlying infection requiring clinical correlations [facility]:[id number] Specimen: [id number] Received: 05/06/24-1320 Status: MARY Rodgers Num: [id number] Spec Type: Impression Subm Dr: Segun Kingsley DO Tissues: PATHPER Procedures: PATHREVIEW Patient: Zaria Corona [id number] (Continued) Signed (signature on file) Qasim Feng MD 05/07/[address] [place] [address] Physician GroupLaboratory - Hematology and Cell countson 34-63-4467ZeH0f (Bld) [Mass fraction]5.7 %4.5-6.2FMercy Health Allen HospitalComment on above:ADA RECOMMENDED LIMIT 4.0 - 6.0ADA THERAPEUTIC TARGET < 7.0ACTION SUGGESTED> 7.0Immature granulocytes/100 WBC (Bld)0.7 %High0.0-0.5 [facility] HospitalLeukocytes [#/volume] corrected for nucleated erythrocytes in Blood by Automated counon 17-22-2513MQJ corrected for nucl RBC Auto (Bld) [#/Vol]13.2 10 3/uLHigh4.0-11.0[facility] Lymphocytes Auto (Bld) [#/Vol]on 81-88-0255Rawqficxpqf (Bld) [#/Vol]2.7 10 3/uL 1.2-3.8[facility] HospitalLymphocytes/100 WBC Auto (Bld)on 31-51-8102Ivowdeolyjj/100 WBC (Bld)20.6 %20.5-60.0[facility] SystemH Auto (RBC) [Entitic mass]on 41-17-8530NIU (RBC) [Entitic mass]27.9 pg 26.7-34.0[facility] SystemHC Auto (RBC) [Mass/Vol]on 85-22-0073RPLK (RBC) [Mass/Vol]32.1 g/dL29.9-35.2FSelect Medical OhioHealth Rehabilitation Hospital - DublinV Auto (RBC) [Entitic vol]on 53-12-0446EAG (RBC) [Entitic vol]86.9 fL 81.0-99.0[facility] HospitalMonocytes Auto (Bld) [#/Vol]on 02-39-7944Tghncpvsr (Bld) [#/Vol]0.7 10 3/uL0.3-0.8[facility] HospitalMonocytes/100 WBC Auto (Bld)on 62-00-9619Htnamjuol/100 WBC (Bld)5.0 % 1.7-12.0[facility] HospitalNeutrophils Auto (Bld) [#/Vol]on 13-52-4476Ttjylgajcck (Bld) [#/Vol]9.3 10 3/uLHigh1.4-6.5FMercy Health Allen HospitalNeutrophils/100 WBC Auto (Bld)on 47-23-9166Lzojlkjzpdt/100 WBC (Bld)70.2 %43.0-75.0[facility] HospitalNo Panel Informationon 43-32-5276Wql Manual DifferentialSee commentCleveland Clinic [facility] Hospital Comment on above:SEE SCANNED REPORTEosinophils # (Auto)0.4 10 3/uL0.0-0.7 [facility] HospitalImmature Granulocyte # (Auto)0.09 10 3/uLHigh 0.00-0.03[facility] HospitalPlatelet mean volume Auto (Bld) [Entitic vol]on 49-39-0394Jwfghdoe mean volume (Bld) [Entitic vol]8.5 fLLow 9.5-13.5FMercy Health Allen HospitalPlatelets Auto (Bld) [#/Vol]on 20-53-0059Ikqoqmzgh (Bld) [#/Vol]419 10 3/cB092-590MzwcumfkeCleveland Clinic Union HospitalRBC Auto (Bld) [#/Vol]on 27-42-1776UKP (Bld) [#/Vol]4.73 10 6/uL4.20-5.40 [facility] HospitalBasophils Auto (Bld) [#/Vol]on 05-01-2024 Basophils (Bld) [#/Vol]0.1 10 3/uL0.0-0.1FMercy Health Allen Hospital Basophils/100 WBC Auto (Bld)on 81-76-0229Obdzdeono/100 WBC (Bld)0.3 %0.2-2.0 [facility] HospitalCholesterol in LDL Calc [Mass/Vol]on 05-01-2024 Cholesterol in LDL [Mass/Vol]56.0 mg/dLCleveland Clinic Union HospitalComment on above:<100 mg/dl ZPKISEL652-953 mg/dl NEAR OR ABOVE YBTIDHI016-909 mg/dl BORDERLINE LLXK644-767 mg/dl HIGH>190 mg/dl VERY HIGHCholesterol in VLDL Calc [Mass/Vol]on 94-14-7873Vjofjsgkvpz in VLDL [Mass/Vol]21.0 mg/dLCleveland Clinic Union HospitalEosinophils/100 WBC Auto (Bld)on 05-01-2024 Eosinophils/100 WBC (Bld)0.6 %Low0.9-7.0[facility] Erythrocyte distribution width Auto (RBC) [Ratio]on 75-83-3427Ygowtmizvbi distribution width (RBC) [Ratio]15.3 %High11.0-15.0[facility] HospitalEstimated glomerular filtration rate (GFR) non- Americanon 91-74-4187SUG/1.73 sq M.predicted among non-blacks MDRD (S/P/Bld) [Vol rate/Area]mL/min/{1.73_m2}>=60[facility] HospitalGlobulin Calc (S) [Mass/Vol]on 23-23-7284Tmajsqef (S) [Mass/Vol]4.7 g/dLCleveland Clinic Union HospitalHematocrit Auto (Bld) [Volume fraction]on 00-11-7820Gynjyeymev (Bld) [Volume fraction]40.0 %36.0-48.0[facility] HospitalHemoglobin [Mass/volume] in Bloodon 60-79-8732Tiyhawjhif (Bld) [Mass/Vol]12.9 g/dL12.0-16.0 [facility] HospitalLaboratory - Chemistry and Chemistry - challengeon 78-94-5865Fgtjpsw [Mass/Vol]3.3 g/dLLow3.4-5.0[facility] HospitalALP [Catalytic activity/Vol]157 U/DIzvq27-383JdbrfhwvqCleveland Clinic [facility] HospitalALT [Catalytic activity/Vol]22 U/V25-90VhzbwpsroCleveland Clinic Union HospitalAST [Catalytic activity/Vol]17 U/R28-79NwyjbacliC[facility] Clinic [facility] Hospital Bilirubin [Mass/Vol]0.6 mg/dL0.2-1.0[facility] HospitalCalcium [Mass/Vol]9.1 mg/dL8.5-10.1FMercy Health Allen HospitalChloride [Moles/Vol] 99 mmol/R58-620YrsybnzboCleveland Clinic Union HospitalCholesterol [Mass/Vol]155 mg/dL <=200[facility] HospitalCholesterol in HDL [Mass/Vol]78 mg/dLHigh 40-60[facility] HospitalComment on above:> or =60 mg/dl - LOW CARDIOVASCULAR RISK<40 mg/dl - HIGH CARDIOVASCULAR RISKCO2 [Moles/Vol]27.0 mmol/L21.0-32.0[facility] HospitalCreatinine [Mass/Vol]0.70 mg/dL 0.55-1.02[facility] HospitalGFR/1.73 sq M.predicted MDRD (S/P/Bld) [Vol rate/Area]mL/min/{1.73_m2}>=60[facility] HospitalGlucose [Mass/Vol]124 mg/hIDyld68-148VlrgyuuuwCleveland Clinic Union HospitalPotassium [Moles/Vol]3.3 mmol/LLow3.5-5.1FMercy Health Allen HospitalProtein [Mass/Vol]8.0 g/dL6.4-8.2FKettering Health Troyodium [Moles/Vol]136 mmol/Q758-058YgyhuqilvCleveland Clinic Union HospitalTriglyceride [Mass/Vol]105 mg/dL <=150[facility] HospitalUrea nitrogen [Mass/Vol]15.0 mg/dL7.0-18.0 [facility] HospitalUrea nitrogen/Creatinine [Mass ratio]21.4 mg/mg [facility] HospitalLaboratory - Hematology and Cell countson 12-44-3788Eqtuthzf granulocytes/100 WBC (Bld)0.5 %0.0-0.5FMercy Health Allen HospitalLeukocytes [#/volume] corrected for nucleated erythrocytes in Blood by Automated counon 52-11-9970UUZ corrected for nucl RBC Auto (Bld) [#/Vol]19.0 10 3/uLHigh4.0-11.0[facility] HospitalLymphocytes Auto (Bld) [#/Vol]on 47-83-3906Mmuflemyess (Bld) [#/Vol]2.0 10 3/uL1.2-3.8[facility] HospitalLymphocytes/100 WBC Auto (Bld)on 05-01-2024 Lymphocytes/100 WBC (Bld)10.3 %Low20.5-60.0[facility] HospitalMCH Auto (RBC) [Entitic mass]on 27-31-5890MDT (RBC) [Entitic mass]27.6 pg26.7-34.0 [facility] HospitalMCHC Auto (RBC) [Mass/Vol]on 58-75-1843ZZAJ (RBC) [Mass/Vol]32.3 g/dL29.9-35.2FMercy Health Allen HospitalMCV Auto (RBC) [Entitic vol]on 36-94-8951QWJ (RBC) [Entitic vol]85.7 fL81.0-99.0[facility] HospitalMonocytes Auto (Bld) [#/Vol]on 50-04-8707Badpbvztp (Bld) [#/Vol]1.2 10 3/uLHigh0.3-0.8[facility] HospitalMonocytes/100 WBC Auto (Bld)on 69-62-4437Yygvsmdnh/100 WBC (Bld)6.2 %1.7-12.0[facility] HospitalNeutrophils Auto (Bld) [#/Vol]on 98-39-9057Gzmerzhpafq (Bld) [#/Vol]15.6 10 3/uLHigh1.4-6.5FMercy Health Allen HospitalNeutrophils/100 WBC Auto (Bld)on 36-02-0902Wlgpgdvaezh/100 WBC (Bld)82.1 %High43.0-75.0[facility] HospitalNo Panel Informationon 79-48-2205Ifglpdhfown # (Auto)0.1 10 3/uL0.0-0.7FMercy Health Allen HospitalImmature Granulocyte # (Auto) 0.09 10 3/uLHigh0.00-0.03[facility] HospitalPlatelet mean volume Auto (Bld) [Entitic vol]on 72-72-6312Bpwpljlq mean volume (Bld) [Entitic vol]9.1 fLLow9.5-13.5FMercy Health Allen HospitalPlatelets Auto (Bld) [#/Vol]on 06-55-0407Rbqflbked (Bld) [#/Vol]346 10 3/kK743-635UaxccyvbvCleveland Clinic Union HospitalRBC Auto (Bld) [#/Vol]on 65-72-6636QMI (Bld) [#/Vol]4.67 10 6/uL4.20-5.40 [facility] Centererum or plasma albumin/globulin mass ratioon 55-74-6299Sfwcjis/Globulin [Mass ratio]0.7 {ratio}[facility] Centererum or plasma anion gap determinationon 00-78-9279Vgeej gap [Moles/Vol] 13.3 mmol/LFKettering Health Troyerum or plasma total cholesterol/high density lipoprotein (HDL) cholesterol mass franklin 05-01-2024 Cholesterol.total/Cholesterol in HDL [Mass ratio]2.0 {ratio}[facility] HospitalComment on above:3.3 - 4.4 LOW RISK4.4 - 7.1 AVERAGE RISK7.1 - 11.0 MODERATE RISK>11.0 HIGH RISKLaboratory - Chemistry and Chemistry - challengeon 06-99-8985Zvrrdhie [Moles/Vol]102 mmol/L46-924YrernwlacCleveland Clinic Union HospitalCO2 [Moles/Vol]28.0 mmol/L21.0-32.0[facility] HospitalPotassium [Moles/Vol]4.0 mmol/L3.5-5.1FMercy Health Allen Hospital Sodium [Moles/Vol]138 mmol/O251-899XymeyqnrnMetroHealth [facility] Heights Medical Centererum or plasma anion gap determinationon 50-94-8393Dmfst gap [Moles/Vol]12.0 mmol/L [facility] HospitalUS Thyroid glandon 49-10[place]23[place] [address] Ultrasound Report Signed Patient: ELBA CORONA MR#: [id number] : 1955 Acct:[id number] Age/Sex: 68 / F ADM Date: 09/05/23 Loc: US Attending Dr: Anum Dumont M.D. Ordering Physician: Anum Dumont M.D. Date of Service: 09/05/23 Procedure(s): US thyroid Accession Number(s): [id number] cc: Segun Kingsley D.O.; Anum Dumont M.D. [address] [address] Patient Name: ELBA CORONA MRN: [id number] date: 1955 Sex: F Assigned Patient Location: US Current Patient Location: US Accession/Order Number: [id number] Exam Date: 09/05/2023 12:15 Report Date: 09/05/2023 [...] Signed By: 09/05/23 1341 DD/ 1338 TD/TT: Manager Location:[facility]HR[facility]iology, Radiologist, - 09/05/[address] [address] Ultrasound Report Signed Patient: ELBA CORONA MR#: [id number] : 1955 Acct:[id number] Age/Sex: 68 / F ADM Date: 09/05/23 Loc: US Attending Dr: Aunm Dumont M.D. Ordering Physician: Anum Dumont M.D. Date of Service: 09/05/23 Procedure(s): US thyroid Accession Number(s): [id number] cc: Segun Kingsley D.O.; Anum Dumont M.D. The [address] [address] Patient Name: ELBA CORONA MRN: [id number] date: 1955 Sex: F Assigned Patient Location: US Current Patient Location: US Accession/Order Number: [id number] Exam Date: 09/05/2023 12:15 Report Date: 09/05/2023 [...] Signed By: 09/05/23 1341 DD/ 1338 TD/TT: Manager Location: MELANI MensahRadiology Study observation (narrative)MELANI Hidalgo Thyroid glandOrdered By: Radiologist Radiology on 50-55-8452FNKB Healthcare Work Phone: XR KUB 1 VIEWon 25-91-2631WZ KUB 1 VIEWEXAMINATION: XR KUB 1 VIEW HISTORY: Kidney stone COMPARISON: No relevant comparison available. FINDINGS: KIDNEY/URETER - RIGHT: punctate nephrolithiasis. KIDNEY/URETER - LEFT: punctate nephrolithiasis PELVIS: No visible ureteral calcifications. Any visible calcifications favor phleboliths. BOWEL: No abnormal dilation or deviation. BONES: No acute abnormality. OTHER: Negative. No abnormal gaseous collections. IMPRESSION: Bilateral punctate nephrolithiasis Electronically authenticated by: EVERETT ERNANDEZ Date: 2023-01-20 11:11[facility] HospitalELECTROLYTESon 63-82-9612Nmvcf gap [Moles/Vol]12.4 mmol/LNormal The [facility] HospitalComment on above:Performed By: #### PTHINT #### [facility] [address] [place] [address] Dr. Alejandrina FengChloride [Moles/Vol]102 mmol/MSaumzn95-818XsfMedina Hospital Comment on above:Performed By: #### PTHINT #### [facility] [address] [place] [address] Dr. Alejandrina FengCO2 [Moles/Vol]28.5 mmol/FArnzwd83.0-32.0[facility] Comment on above:Performed By: #### PTHINT #### [facility] [address] [place] [address] Dr. Alejandrina FengPotassium [Moles/Vol]3.9 mmol/LNormal3.5-5.1[facility] Comment on above:Performed By: #### PTHINT #### [facility] [address] [place] [address] Dr. Alejandrina FengSodium [Moles/Vol]139 mmol/QRvhlcb730-724ZryMedina Hospital Comment on above:Performed By: #### PTHINT #### [facility] [address] [place] [address] Dr. Alejandrina Christopher THYROIDon 36-87-3906TY THYROIDEXAMINATION: US THYROID HISTORY: Non-toxic uninodular goiter [...] thyroid stable. TR 3 nodule TI-RADS: The [employer] TI-RADS committee's white paper recommendations for thyroid lesions classified as TR3 (mildly suspicious) are listed below: > 1.5 cm. Follow-up ultrasound in 1, 3, and 5 years. > 2.5 cm. FNA. J. Am Kyrie Radiol 2017;14:587-595. Electronically authenticated by: EVERETT ERNANDEZ Date: 2022-08-29 07:[facility] HospitalXR KUB 1 VIEWon 68-33-0996NX KUB 1 VIEWEXAMINATION: XR KUB 1 VIEW [...] Electronically authenticated by: JACKSON MEJIA Date: 2022-07-14 06:26[facility] HospitalELECTROLYTESon 36-01-8463Xywsy gap [Moles/Vol]9.0 mmol/LNormal The [facility] HospitalComment on above:Performed By: #### ELEC #### [facility] [address] [address] [address] Alejandrina FengChloride [Moles/Vol]101 mmol/VNzsbtr24-916ZihMedina Hospital Comment on above:Performed By: #### ELEC #### [facility] [address] [address] [address] Alejandrina FengCO2 [Moles/Vol]27.5 mmol/VJhphep80.0-32.0[facility] Comment on above:Performed By: #### ELEC #### [facility] [address] [place], [place] [address] Dr. Alejandrina FengPotassium [Moles/Vol]3.5 mmol/LNormal3.5-5.1[facility] Comment on above:Performed By: #### ELEC #### [facility] [address] [place], [place] [address] Dr. Alejandrina FengSodium [Moles/Vol]134 mmol/LCritically yxm558-020Rur White HospitalComment on above:Performed By: #### ELEC #### [facility] [address] [address] [address] Alejandrina FengMG MAMM SCREEN 3D TUSHAR CADon 31-92-7391UD MAMM SCREEN 3D TUSHAR CAD Patient: ZARIA CORONA Exam Date: 07/06/2022 : 1955 Gender:F Ordering : DR SEGUN KINGSLEY D.O. Admission #: [id number] Family : Order #: [id number] CLICK HERE TO VIEW EXAM RADIOLOGY REPORT [...] by: Everett Ernandez MD on 07/06/2022 at 10:00NoGalion Hospital AUTO DIFFon 76-96-9166FFXI #0.1 103/ulNormal0.0-0.1The [facility] HospitalComment on above:Performed By: #### CBC #### [facility] [address] [place] [address] Dr. Alejandrina FengBasophils/100 WBC (Bld)0.4 %Normal0.2-2.0[facility] Comment on above:Performed By: #### CBC #### [facility] [address] [place] [address] Dr. Alejandrina Moise #0.1 103/ulNormal0.0-0.7The [facility] HospitalComment on above: Performed By: #### CBC #### [facility] [address] [place] [address] Dr. Alejandrina Camarilloosinophils/100 WBC (Bld)0.6 %Critically low0.9-7.0The [facility] HospitalComment on above:Performed By: #### CBC #### [facility] [address] [place] [address] Dr. Alejandrina Camarillorythrocyte distribution width (RBC) [Ratio]14.6 %Xqrzbz41.0-15.0 The [facility] HospitalComment on above:Performed By: #### CBC #### [facility] [address] [place] [address] Dr. Alejandrina FengHematocrit (Bld) [Volume fraction]43.6 %Sbszel46.0-48.0The [facility] HospitalComment on above:Performed By: #### CBC #### [facility] [address] [place] [address] Dr. Alejandrina FengHemoglobin (Bld) [Mass/Vol]14.1 g/cPVxkguh30.0-16.0The [facility] HospitalComment on above:Performed By: #### CBC #### [facility] [address] [place] [address] Dr. Alejandrina Washburn #0.07 10e3/ulCritically high0.00-0.03[facility] Comment on above:Performed By: #### CBC #### [facility] [address] [place] [address] Dr. Alejandrina Washburn %0.6 %Critically high0.0-0.5The [facility] HospitalComment on above:Performed By: #### CBC #### [facility] [address] [place] [address] Dr. Alejandrina Moore #1.6 103/ulNormal1.2-3.8The [facility] HospitalComment on above:Performed By: #### CBC #### [facility] [address] [place] [address] Dr. Alejandrina Freemanhocytes/100 WBC (Bld)12.4 %Critically low20.5-60.0The [facility] HospitalComment on above:Performed By: #### CBC #### [facility] [address] [place] [address] Dr. Alejandrina Meyer DIFF REQNONormalThe White HospitalComment on above: Performed By: #### CBC #### [facility] [address] [place] [address] Dr. Alejandrina Robert (RBC) [Entitic mass]27.9 ddSxcunz04.7-34.0The [facility] HospitalComment on above:Performed By: #### CBC #### [facility] [address] [place] [address] Dr. Alejandrina Lion (RBC) [Mass/Vol]32.3 g/mUCrwmiv40.9-35.2The [facility] HospitalComment on above:Performed By: #### CBC #### [facility] [address] [place] [address] Dr. Alejandrina Bianchi (RBC) [Entitic vol]86.3 kNObnejk28.0-99.0The White HospitalComment on above:Performed By: #### CBC #### [facility] [address] [place] [address] Dr. Alejandrina Reid #0.9 103/ulCritically high0.3-0.8[facility] Comment on above:Performed By: #### CBC #### [facility] [address] [place] [address] Dr. Alejandrina Deviocytes/100 WBC (Bld)7.2 %Normal1.7-12.0[facility] Comment on above:Performed By: #### CBC #### [facility] [address] [place] [address] Dr. Alejandrina Jones #10.0 103/ulCritically high1.4-6.5[facility] Comment on above:Performed By: #### CBC #### [facility] [address] [place] [address] Dr. Alejandrina Slaughterutrophils/100 WBC (Bld)78.8 %Critically high43.0-75.0The White HospitalComment on above:Performed By: #### CBC #### [facility] [address] [place] [address] Dr. Alejandrina Pettylet mean volume (Bld) [Entitic vol]8.8 fLCritically low 9.5-13.5The White HospitalComment on above:Performed By: #### CBC #### [facility] [address] [place] [address] Dr. Alejandrina ShaneT404 103/djZtyaui768-151Wwb White HospitalComment on above: Performed By: #### CBC #### [facility] [address] [place] [address] Dr. Alejandrina FengRBC5.05 106/ulNormal4.20-5.40The White HospitalComment on above:Performed By: #### CBC #### [facility] [address] [place] [address] Dr. Alejandrina FengWBC12.7 103/ulCritically high4.0-11.0The White HospitalComment on above:Performed By: #### CBC #### [facility] [address] [place] [address] Dr. Alejandrina Mccauley 14(COMP METB)on 68-29-5246Afmybpd [Mass/Vol]3.6 g/dLNormal 3.4-5.0The White HospitalComment on above:Performed By: #### CMP, TSH #### [facility] [address] [address] [address] Alejandrina FengAlbumin/Globulin [Mass ratio]0.8 {ratio}NormalThe White HospitalComment on above:Performed By: #### CMP, TSH #### [facility] [address] [address] [address] Alejandrina MoralesP [Catalytic activity/Vol]182 U/LCritically eqxm70-978Ucx [facility] HospitalComment on above:Performed By: #### CMP, TSH #### [facility] [address] [address] [address] Alejandrina MoralesT [Catalytic activity/Vol]29 U/ZRqmfga05-84Cbc [facility] HospitalComment on above:Performed By: #### CMP, TSH #### [facility] [address] [place] [address] Dr. Alejandrina FengAnion gap [Moles/Vol]13.4 mmol/LNormalThe [facility] Comment on above:Performed By: #### CMP, TSH #### [facility] [address] [place] [address] Dr. Alejandrina FengAST [Catalytic activity/Vol]22 U/XEjirvq03-36Vxk [facility] HospitalComment on above:Performed By: #### CMP, TSH #### [facility] [address] [place] [address] Dr. Alejandrina FengBilirubin [Mass/Vol]0.5 mg/dLNormal0.2-1.0[facility] Comment on above:Performed By: #### CMP, TSH #### [facility] [address] [place] [address] Dr. Alejandrina FengCalcium [Mass/Vol]9.3 mg/dLNormal8.5-10.1[facility] Comment on above:Performed By: #### CMP, TSH #### [facility] [address] [place] [address] Dr. Alejandrina FengChloride [Moles/Vol]102 mmol/NJgocll86-950Gmy [facility] Comment on above:Performed By: #### CMP, TSH #### [facility] [address] [address] [address] Alejandrina FengCO2 [Moles/Vol]26.2 mmol/RSjduip04.0-32.0[facility] Comment on above:Performed By: #### CMP, TSH #### [facility] [address] [address] [address] Alejandrina FengCreatinine [Mass/Vol]0.94 mg/dLNormal0.55-1.02The White HospitalComment on above:Performed By: #### CMP, TSH #### [facility] [address] [address] [address] Tinoco ChangEGFR-AF GIBRALTARIAN>60Normal>=60The White HospitalComment on above:Performed By: #### CMP, TSH #### [facility] [address] [address] [address] Alejandrina CamarilloGFR-NON AF HQMYFRNF42 mL/min/1.83p0Nxannfzcyx low>=60The White HospitalComment on above:Performed By: #### CMP, TSH #### [facility] [address] [address] [address] Alejandrina FengGlobulin (S) [Mass/Vol]4.3 g/dLNormalThe White HospitalComment on above:Performed By: #### CMP, TSH #### [facility] [address] [address] [address] Alejandrina FengGlucose [Mass/Vol]101 mg/vJRgnztx43-538Rwd [facility] Comment on above:Performed By: #### CMP, TSH #### [facility] [address] [address] [address] Alejandrina FengPotassium [Moles/Vol]4.6 mmol/LNormal3.5-5.1[facility] Comment on above:Performed By: #### CMP, TSH #### [facility] [address] [address] [address] Alejandrina FengProtein [Mass/Vol]7.9 g/dLNormal6.4-8.2[facility] Comment on above:Performed By: #### CMP, TSH #### [facility] [address] [address] [address] Alejandrina FengSodium [Moles/Vol]137 mmol/XEomvyt333-710Rlh [facility] Comment on above:Performed By: #### CMP, TSH #### [facility] [address] [place] [address] Dr. Alejandrina James nitrogen [Mass/Vol]19.0 mg/dLCritically high7.0-18.0The [facility] HospitalComment on above:Performed By: #### CMP, TSH #### [facility] [address] [place] [address] Dr. Alejandrina James nitrogen/Creatinine [Mass ratio]20.2 mg/mgNormalThe White HospitalComment on above:Performed By: #### CMP, TSH #### [facility] [address] [place] [address] Dr. Alejandrina Montelongo 90-61-3698NKV9.854 uIU/mLNormal0.358-3.740The [facility] HospitalComment on above:Performed By: #### CMP, TSH #### [facility] [address] [place] [address] Dr. Alejandrina Rodríguez-19 PCR ([facility])on 09-58-8869ISIQ-CoV-2 (COVID-19) RNA JACKSON+probe Ql (Unsp spec)Not detectedNormalNOT [...] for this test is supported by the Audio Visual Design Engineer of Health and Human Service's declaration that [...] By: #### CBC #### [facility] [address] [place] [address] Dr. Alejandrina CamarilloLECTROLYTESon 84-67-8604Luzke gap [Moles/Vol]14.8 mmol/LNormal The White HospitalComment on above:Performed By: #### ELEC #### [facility] [address] [place] [address] Dr. Alejandrina FengChloride [Moles/Vol]103 mmol/BVonxrm81-188Hte [facility] Comment on above:Performed By: #### ELEC #### [facility] [address] [place] [address] Dr. Alejandrina FengCO2 [Moles/Vol]25.2 mmol/BTfzywt26.0-32.0[facility] Comment on above:Performed By: #### ELEC #### [facility] [address] [place] [address] Dr. Alejandrina FengPotassium [Moles/Vol]4.0 mmol/LNormal3.5-5.1[facility] Comment on above:Performed By: #### ELEC #### [facility] [address] [place] [address] Dr. Alejandrina FengSodium [Moles/Vol]139 mmol/XJpeghh052-307Mul [facility] Comment on above:Performed By: #### ELEC #### [facility] [address] [place] [address] Dr. Alejandrina FengCovid-19 PCR ([facility])on 46-74-4083RGMZ-CoV-2 (COVID-19) RNA JACKSON+probe Ql (Unsp spec)Not detectedNormalNOT [...] for this test is supported by the Audio Visual Design Engineer of Health and Human Service's (HHS's) declaration [...] By: #### CVDTBH #### [facility] [address] [place] [address] Dr. Alejandrina Dooley 99-74-2815Hdzllsctynt peptide B (Bld) [Mass/Vol]60.0 pg/mL Normal<=900.0The White HospitalComment on above:Performed By: #### PTHINT #### [facility] [address] [place] [address] Dr. Alejandrina Bahena AUTO DIFFon 05-33-6522[facility] #0.1 103/ulNormal0.0-0.1[facility] HospitalComment on above:Performed By: #### CBC #### [facility] [address] [place] [address] Dr. Alejandrina FengBasophils/100 WBC (Bld)0.4 %Normal0.2-2.0[facility] Comment on above:Performed By: #### CBC #### [facility] [address] [place] [address] Dr. Alejandrina Moise #0.2 103/ulNormal0.0-0.7The [facility] HospitalComment on above: Performed By: #### CBC #### [facility] [address] [place] [address] Dr. Alejandrina Camarilloosinophils/100 WBC (Bld)1.4 %Normal0.9-7.0[facility] Comment on above:Performed By: #### CBC #### [facility] [address] [address] [address] Alejandrina Camarillorythrocyte distribution width (RBC) [Ratio]13.3 %Lkfsqs45.0-15.0 The [facility]ment on above:Performed By: #### CBC #### [facility] [address] [place] [address] Dr. Alejandrina FengHematocrit (Bld) [Volume fraction]45.1 %Ytfqbg65.0-48.0The [facility] HospitalComment on above:Performed By: #### CBC #### [facility] [address] [place] [address] Dr. Alejandrina FengHemoglobin (Bld) [Mass/Vol]14.4 g/iJScdnzp39.0-16.0The [facility] HospitalComment on above:Performed By: #### CBC #### [facility] [address] [place] [address] Dr. Alejandrina Washburn #0.05 10e3/ulCritically high0.00-0.03[facility] Comment on above:Performed By: #### CBC #### [facility] [address] [place] [address] Dr. Alejandrina Washburn %0.4 %Normal0.0-0.5The [facility]ment on above: Performed By: #### CBC #### [facility] [address] [place] [address] Dr. Alejandrina FreemanH #1.6 103/ulNormal1.2-3.8The [facility]ment on above:Performed By: #### CBC #### [facility] [address] [place] [address] Dr. Alejandrina Freemanhocytes/100 WBC (Bld)11.2 %Critically low20.5-60.0The [facility] on above:Performed By: #### CBC #### [facility] [address] [place] [address] Dr. Alejandrina MariaUAL DIFF REQNONormalThe White HospitalComment on above: Performed By: #### CBC #### [facility] [address] [address] [address] Alejandrina Lion (RBC) [Entitic mass]28.0 dwJpjoub02.7-34.0The [facility] HospitalComment on above:Performed By: #### CBC #### [facility] [address] [place] [address] Dr. Alejandrina Lion (RBC) [Mass/Vol]31.9 g/jWDfixeu19.9-35.2The [facility] HospitalComment on above:Performed By: #### CBC #### [facility] [address] [place] [address] Dr. Alejandrina Lion (RBC) [Entitic vol]87.6 kRYfyzcs87.0-99.0The [facility] HospitalComment on above:Performed By: #### CBC #### [facility] [address] [place] [address] Dr. Alejandrina Reid #0.6 103/ulNormal0.3-0.8The [facility] HospitalComment on above:Performed By: #### CBC #### [facility] [address] [place] [address] Dr. Alejandrina Deviocytes/100 WBC (Bld)4.5 %Normal1.7-12.0[facility] Comment on above:Performed By: #### CBC #### [facility] [address] [place] [address] Dr. Alejandrina Jones #11.4 103/ulCritically high1.4-6.5[facility] Comment on above:Performed By: #### CBC #### [facility] [address] [place] [address] Dr. Alejandrina Slaughterutrophils/100 WBC (Bld)82.1 %Critically high43.0-75.0The [facility] HospitalComment on above:Performed By: #### CBC #### [facility] [address] [place] [address] Dr. Alejandrina Pettylet mean volume (Bld) [Entitic vol]9.1 fLCritically low 9.5-13.5The [facility] HospitalComment on above:Performed By: #### CBC #### [facility] [address] [place] [address] Dr. Alejandrina FengPLT363 103/ocWxzxtu596-584Zfe [facility] HospitalComment on above: Performed By: #### CBC #### [facility] [address] [place] [address] Dr. Alejandrina FengRBC5.15 106/ulNormal4.20-5.40The [facility] HospitalComment on above:Performed By: #### CBC #### [facility] [address] [place] [address] Dr. Alejandrina FengWBC13.9 103/ulCritically high4.0-11.0The [facility] HospitalComment on above:Performed By: #### CBC #### [facility] [address] [place] [address] Dr. Alejandrina CruzF 14(COMP METB)on 88-62-8072Uryubll [Mass/Vol]4.0 g/dLNormal 3.4-5.0The [facility] HospitalComment on above:Performed By: #### PTHINT #### [facility] [address] [place] [address] Dr. Alejandrina FengAlbumin/Globulin [Mass ratio]0.8 {ratio}NormalThe White HospitalComment on above:Performed By: #### PTHINT #### [facility] [address] [place] [address] Dr. Alejandrina Nicole [Catalytic activity/Vol]200 U/LCritically hqfn06-290Ykl [facility] HospitalComment on above:Performed By: #### PTHINT #### [facility] [address] [place] [address] Dr. Alejandrina You [Catalytic activity/Vol]29 U/PNxutwl52-38Qnm [facility] HospitalComment on above:Performed By: #### PTHINT #### [facility] [address] [place] [address] Dr. Alejandrina Felix gap [Moles/Vol]12.2 mmol/LNormalThe [facility] Comment on above:Performed By: #### PTHINT #### [facility] [address] [address] [address] Alejandrina FengAST [Catalytic activity/Vol]25 U/SOcwtmg18-37Cie [facility] HospitalComment on above:Performed By: #### PTHINT #### [facility] [address] [address] [address] Alejandrina FengBilirubin [Mass/Vol]0.4 mg/dLNormal0.2-1.0[facility] Comment on above:Performed By: #### PTHINT #### [facility] [address] [address] [address] Alejandrina FengCalcium [Mass/Vol]9.5 mg/dLNormal8.5-10.1[facility] Comment on above:Performed By: #### PTHINT #### [facility] [address] [address] [address] Alejandrina FengChloride [Moles/Vol]101 mmol/EUyupah70-179SqvMedina Hospital Comment on above:Performed By: #### PTHINT #### [facility] [address] [address] [address] Alejandrina FengCO2 [Moles/Vol]25.8 mmol/FHszduc29.0-32.0[facility] Comment on above:Performed By: #### PTHINT #### [facility] [address] [address] [address] Alejandrina FengCreatinine [Mass/Vol]0.69 mg/dLNormal0.55-1.02Med[facility] HospitalComment on above:Performed By: #### PTHINT #### [facility] [address] [place] [address] Dr. Alejandrina CamarilloGFR-AF GIBRALTARIAN>60Normal>=60The [facility] HospitalComment on above:Performed By: #### PTHINT #### [facility] [address] [address] [address] Alejandrina CamarilloGFR-NON AF GIBRALTARIAN>60Normal>=60The [facility] HospitalComment on above:Performed By: #### PTHINT #### [facility] [address] [address] [address] Alejandrina FengGlobulin (S) [Mass/Vol]4.8 g/dLNormalThe [facility] HospitalComment on above:Performed By: #### PTHINT #### [facility] [address] [address] [address] Alejandrina FengGlucose [Mass/Vol]96 mg/vNDlgtfj32-530Wai [facility] Comment on above:Performed By: #### PTHINT #### [facility] [address] [address] [address] Alejandrina FengPotassium [Moles/Vol]4.0 mmol/LNormal3.5-5.1[facility] Comment on above:Performed By: #### PTHINT #### [facility] [address] [address] [address] Alejandrina FnegProtein [Mass/Vol]8.8 g/dLCritically high6.4-8.2The [facility] HospitalComment on above:Performed By: #### PTHINT #### [facility] [address] [address] [address] Alejandrina FengSodium [Moles/Vol]135 mmol/LCritically hkm541-051Tbe [facility] HospitalComment on above:Performed By: #### PTHINT #### [facility] [address] [address] [address] Alejandrina FengUrea nitrogen [Mass/Vol]18.0 mg/dLNormal7.0-18.0The [facility] HospitalComment on above:Performed By: #### PTHINT #### [facility] [address] [address] [address] Alejandrina FengUrea nitrogen/Creatinine [Mass ratio]26.1 mg/mgNoalThe [facility] HospitalComment on above:Performed By: #### PTHINT #### [facility] [address] [address] [address] Alejandrina Vallejo, HIGH SENSITIVITYon 67-37-8705PDAXDA4.4 pg/mLNormal 4.0-51.3The [facility] HospitalComforest [facility] on above:Result Comment: CUT-OFF POINTS HAVE BEEN ESTABLISHED BASED ON THE FOURTH UNIVERSAL DEFINITIONS OF MYOCARDIAL INFARCTION. THE UPPER REFERENCE LIMIT (URL) OF TROPONIN, DEFINED THE 99TH PERCENTILE OF cTnI DISTRIBUTION IN A REFERENCE POPULATION, HAS BEEN CONFIRMED THE DECISION THRESHOLD FOR RI DIAGNOSIS.Performed By: #### HSTROPN #### [facility] [address] [place] [address] Dr. Alejandrina FengHSTROP6.4 pg/mLNormal4.0-51.3The [facility] HospitalComforest [facility] on above:Result Comment: CUT-OFF POINTS HAVE BEEN ESTABLISHED BASED ON THE FOURTH UNIVERSAL DEFINITIONS OF MYOCARDIAL INFARCTION. THE UPPER REFERENCE LIMIT (URL) OF TROPONIN, DEFINED THE 99TH PERCENTILE OF cTnI DISTRIBUTION IN A REFERENCE POPULATION, HAS BEEN CONFIRMED THE DECISION THRESHOLD FOR RI DIAGNOSIS.Performed By: #### PTHINT #### [facility] [address] [place] [address] Dr. Alejandrina FengXR CHEST 1 Von 22-40-2186FG CHEST 1 VEXAMINATION: XR CHEST 1 V [...] Electronically authenticated by: EVERETT ERNANDEZ Date: 2022-02-22 13:20NormRegional Medical Centere White HospitalOSMOLALITYon 78-35-9033Grylaeawuc [Osmolality]284 mosm/kgNormal 280-301The [facility] HospitalComment on above:Performed By: #### PTHINT #### [facility] [address] [place] [address] Dr. Alejandrina FengOSMOLALITY URINEon 89-60-6268Xbxekkaxdo, Yuimd196 mOsmol/kgNormal The [facility] HospitalComforest [facility] on above:Result Comment: 24 hr : 300 - 900 Random: 50 - 1400 After 12hr fluid restriction: >850Performed By: #### OSMOU #### [facility] [address] [address] [address] Alejandrina FelixH INTACTon 46-81-9697JMX, Vqinwh03 pg/aLPbbmsv74-68Nsb [facility] HospitalComment on above:Performed By: #### PTHINT #### [facility] [address] [address] [address] Alejandrina FengPROF CHEM 8 (BAS METB)on 81-68-8337Stqsp gap [Moles/Vol]12.7 mmol/LNormalThe [facility] HospitalComment on above:Performed By: #### PTHINT #### [facility] [address] [place] [address] Dr. Alejandrina FengCalcium [Mass/Vol]8.7 mg/dLNormal8.5-10.1[facility] Comment on above:Performed By: #### PTHINT #### [facility] [address] [place] [address] Dr. Alejandrina FengChloride [Moles/Vol]100 mmol/HToeyoo73-385DlhMedina Hospital Comment on above:Performed By: #### PTHINT #### [facility] [address] [place] [address] Dr. Alejandrina FengCO2 [Moles/Vol]27.7 mmol/SFlvghf96.0-32.0[facility] Comment on above:Performed By: #### PTHINT #### [facility] [address] [place] [address] Dr. Alejandrina FengCreatinine [Mass/Vol]0.65 mg/dLNormal0.55-1.02The [facility] HospitalComment on above:Performed By: #### PTHINT #### [facility] [address] [place] [address] Dr. Alejandrina CamarilloGFR-AF GIBRALTARIAN>60Normal>=60The [facility] HospitalComment on above:Performed By: #### PTHINT #### [facility] [address] [place] [address] Dr. Yilan ChangEGFR-NON AF GIBRALTARIAN>60Normal>=60The [facility] HospitalComment on above:Performed By: #### PTHINT #### [facility] [address] [place] [address] Dr. Alejandrina FengGlucose [Mass/Vol]103 mg/wUYxmiyx13-683Wcz [facility] Comment on above:Performed By: #### PTHINT #### [facility] [address] [place] [address] Dr. Alejandrina FengPotassium [Moles/Vol]3.4 mmol/LCritically low3.5-5.1The [facility] HospitalComment on above:Performed By: #### PTHINT #### [facility] [address] [place] [address] Dr. Alejandrina Romerodium [Moles/Vol]137 mmol/IOcunhx223-190Fvx [facility] Comment on above:Performed By: #### PTHINT #### [facility] [address] [place] [address] Dr. Alejandrina FengUrea nitrogen [Mass/Vol]15.0 mg/dLNormal7.0-18.0The [facility] HospitalComment on above:Performed By: #### PTHINT #### [facility] [address] [place] [address] Dr. Alejandrina James nitrogen/Creatinine [Mass ratio]23.1 mg/mgNormalThe [facility] HospitalComment on above:Performed By: #### PTHINT #### [facility] [address] [place] [address] Dr. Alejandrina Alba RANDOM URINEon 29-02-9923Dkvuou (U) [Moles/Vol]74 mmol/L Kzwinx43-59Zqc [facility] HospitalComment on above:Performed By: #### BRIGETTE #### [facility] [address] [place] [address] Dr. Alejandrina RoblesHoyudy 98-14-9030QUS9.791 uIU/mLNormal0.358-3.740The [facility] HospitalComment on above:Performed By: #### PTHINT #### [facility] [address] [address] [address] Alejandrina FengSycamore Medical CenterComment on above: Result Comment: <0.34 UIU/ml HYPERTHYROID 0.34-5.60 UIU/ml EUTHYROID >5.60 UIU/ml HYPOTHYROIDPerformed By: #### PTHINT #### [facility] [address] [address] [address] Alejandrnia Feng Vital Signs Date TimeVital SignValuePerforming PguyqlhcrVbwvrzju79-94-2453 09:27-0400Body thkxyu476.56 cmBenjamin Ball DO Work Phone: [phone]07-25-2025 09:27-0400 Body mass index (BMI) [Ratio]25.7 kg/n9Ttyjmzzp Ball DO Work Phone: [phone] [place], [place] [address]07-25-2025 09:27-0400 Body dhruex54.09 kgBenjamin Ball DO Work Phone: [phone] [place], [place] 0303807-25-2025 09:27-0400 Diastolic blood hdqbvtad22 mm[Hg]Segun Ball DO Work Phone: [phone]07-25-2025 09:27-0400 Heart rate71 /minBenjamin Ball DO Work Phone: [phone]07-25-2025 09:27-0400 Respiratory rate12 /minBenjamin Ball DO Work Phone: [phone] [place], [place] [address]07-25-2025 09:27-0400 Systolic blood mftcxfoi971 mm[Hg]Segun Ball DO Work Phone: [phone] [place], [place] [address]03-10-2025 10:40-0400 Body iieomw430.56 [facility] 10:40-0400Body mass index (BMI) [Ratio]24.6 kg/q9YgvexokpvC[facility] Clinic [facility]03-10-2025 10:40-0400Body mlmyoo22.09 kgC[facility]03-10-2025 10:40-0400Diastolic blood yuuvqozm21 mm[Hg][facility] 12-02-2024 10:40-0400Heart rate80 /[facility] 12-02-2024 10:40-0400Respiratory rate12 /[facility] 12-02-2024 10:40-0400Systolic blood rlmsnyyv966 mm[Hg][facility]12-31-2024 10:51-0500Body .56 cmC[facility]12-31-2024 10:51-0500Body mass index (BMI) [Ratio]24.7 kg/i0JvbqaxsceC[facility]12-31-2024 10:51-0500Body qwooev01.31 kgC[facility]12-31-2024 10:51-0500Diastolic blood hdioobpx19 mm[Hg] [facility]12-31-2024 10:51-0500Heart rate74 /[facility]12-31-2024 10:51-0500Systolic blood rvzefdkt432 mm[Hg] [facility]11-13-2024 09:24-0500Body ufujen777.56 cm [facility]11-13-2024 09:24-0500Body mass index (BMI) [Ratio]24.9 kg/d8UefiubeazCleveland Clinic [facility]11-13-2024 09:24-0500Body .94 kgC[facility]11-13-2024 09:24-0500Diastolic blood hyofqfbf72 mm[Hg][facility]11-13-2024 09:24-0500 Heart rate83 /[facility]11-13-2024 09:24-0500 Respiratory rate12 /[facility]11-13-2024 09:24-0500 Systolic blood bcaofhio624 mm[Hg][facility]11-01-2024 09:06-0400Body xpzlni689.56 cmC[facility]11-01-2024 09:06-0400Body mass index (BMI) [Ratio]25.1 kg/g4NjkbftoioC[facility] Clinic [facility]11-01-2024 09:06-0400Body znhdky92.39 kgC[facility] 07-26-2024 09:06-0400Diastolic blood wotknjdx68 mm[Hg][facility]11-01-2024 09:06-0400Heart rate76 /[facility] 07-26-2024 09:06-0400Respiratory rate12 /[facility] 07-26-2024 09:06-0400Systolic blood siyhtzbi706 mm[Hg][facility]07-22-2024 14:16-0400Body .56 cmC[facility]07-22-2024 14:16-0400Body mass index (BMI) [Ratio]25.9 kg/d2DoeaitgkfC[facility] Clinic [facility] Hospital07-22-2024 14:16-0400Body xzowtn72.71 kgCleveland [facility] 14:16-0400Diastolic blood lixaovlz54 mm[Hg] [facility]07-22-2024 14:16-0400Heart rate80 /[facility]07-22-2024 14:16-0400Respiratory rate12 /[facility]07-22-2024 14:16-0400Systolic blood lhjseqfq924 mm[Hg] [facility]05-28-2024 14:50-0400Blood Pressure Location Robert Applebaum MD [facility]05-28-2024 14:50-0400Body bpqlhjiwign71.06 [degF]Kelsie OrzeGo![employer] [facility]05-28-2024 14:50-0400Diastolic blood nwnlqfgi32 mm[Hg]Kelsie Orzech [facility]05-28-2024 14:50-0400Heart rate83 /minAurora Orzech [facility]05-28-2024 14:50-0400Respiratory rate16 /minAurora Orzech [facility]05-28-2024 14:50-0400Systolic blood mm[Hg]Kelsie Orzech [facility]05-28-2024 12:02-0400Body hfjywt400.56 [facility] 12:02-0400Body mass index (BMI) [Ratio]25.8 kg/r5TsebelsfmC[facility]05-28-2024 12:02-0400Body .26 kgC[facility]05[facility] 12:02-0400Diastolic blood xybjobvi15 mm[Hg] [facility]05-28-2024 12:02-0400Heart rate83 /[facility]05-28-2024 12:02-0400Respiratory rate12 /[facility]05-28-2024 12:02-0400Systolic blood mm[Hg] [facility]04-03-2024 09:02-0400Body epstze758.56 cm [facility]04-03-2024 09:02-0400Body mass index (BMI) [Ratio]26.2 kg/f2IvbvgmgmrC[facility]04-03-2024 09:02-0400Body nmeofj09.11 [facility]04[facility]03-2024 09:02-0400Diastolic blood exdtbhco99 mm[Hg][facility]04-03-2024 09:02-0400 Heart rate76 /[facility]04-03-2024 09:02-0400 Respiratory rate12 /[facility]04-03-2024 09:02-0400 Systolic blood brjhxewq423 mm[Hg][facility]03-26-2024 08:57-0400Body wbepmn390.56 [facility]03[facility]2024 08:57-0400Body mass index (BMI) [Ratio]25.9 kg/k6ZrbxhssiiC[facility]03-26-2024 08:57-0400Body carhsi59.54 kgC[facility] 12-19-2023 08:57-0400Diastolic blood odojgqhg80 mm[Hg][facility]03-26-2024 08:57-0400Heart rate98 /[facility] 12-19-2023 08:57-0400Respiratory rate12 /[facility] 12-19-2023 08:57-0400Systolic blood mtwjkkdi562 mm[Hg][facility]01-15-2024 10:00-0500Body .56 cmBenjamin Ball Other [facility]01-15-2024 10:00-0500 Body mass index (BMI) [Ratio]25.81 kg/y1Fwsnbnqg Ball Other [employer] Other 01-15-2024 10:00-0500Body iaulfc59.22 kgBenjamin Ball Other [facility]01-15-2024 10:00-0500 Diastolic blood mshtkxfu00 mm[Hg]Segun Ball Other [facility]01-15-2024 10:00-0500 Respiratory rate12 /minBenjamin Ball Other [employer] Other 01-15-2024 10:00-0500Systolic blood uqyxhlbt668 mm[Hg] Segun Ball Other [facility]12-26-2023 13:45-0500 Body pjhyvn880.56 cmBenjamin Ball Other [employer] Other 12-26-2023 13:45-0500Body mass index (BMI) [Ratio] 26.02 kg/j7Ypuqnspg Ball Other [employer] Other 12-26-2023 13:45-0500Body .77 kgBenjamin Ball Other [employer] Other 12-26-2023 13:45-0500Diastolic blood fqizyjwc01 mm[Hg] Segun Ball Other [employer] Other 12-26-2023 13:45-0500Respiratory rate12 /minBenjamin Ball Other [employer] Other 12-26-2023 13:45-0500Systolic blood mm[Hg] Segun Ball Other [employer] Other 07-17-2023 11:00-0400Body bdlecp482.56 cmBenjamin Ball Other [employer] Other 07-17-2023 11:00-0400Body mass index (BMI) [Ratio] 26.29 kg/y4Gkgvblpy Ball Other [employer] Other 07-17-2023 11:00-0400Body qazjvo90.49 kgBenjamin Ball Other [employer] Other 07-17-2023 11:00-0400Diastolic blood cbjcvecd88 mm[Hg] Segun Ball Other [employer] Other 07-17-2023 11:00-0400Respiratory rate12 /minBenjamin Ball Other [employer] Other 07-17-2023 11:00-0400Systolic blood glqhuezb504 mm[Hg] Segun Ball Other [employer] Other 05-03-2023 12:30-0400Body .56 cmBenjamin Ball Other [employer] Other 05-03-2023 12:30-0400Body mass index (BMI) [Ratio] 26.05 kg/z7Plvopssa Ball Other [employer] Other 05-03-2023 12:30-0400Body tbnpcu52.86 kgBenjamin Ball Other [employer] Other 05-03-2023 12:30-0400Diastolic blood jgxakwhj68 mm[Hg] Segun Ball Other [employer] Other 05-03-2023 12:30-0400Respiratory rate12 /minBenjamin Ball Other [employer] Other 05-03-2023 12:30-0400Systolic blood mm[Hg] Segun Ball Other [employer] Other 03-14-2023 11:00-0400Body japnmg726.56 cmBenjamin Ball Other [employer] Other 03-14-2023 11:00-0400Body mass index (BMI) [Ratio] 25.98 kg/g6Wehjzzkr Ball Other [employer] Other 03-14-2023 11:00-0400Body ublsje05.68 kgBenjamin Ball Other [employer] Other 03-14-2023 11:00-0400Diastolic blood cenemsmc27 mm[Hg] Segun Ball [facility] [employer] Other 03-14-2023 11:00-0400Respiratory rate16 /minSegun Sancho Other [facility] [employer] Other 03-14-2023 11:00-0400Systolic blood ofsssvhf284 mm[Hg] Segun Kingsley Other [facility] [employer] Other 10-19-2022 13:16-0400Blood Pressure LocationJENNIFER SVITLANA [facility]10-19-2022 13:16-0400Diastolic blood hujuxmwt57 mm[Hg]NOE SVITLANA [facility]10-19-2022 13:16-0400Heart rate79 /minJENNIFER SVITLANA [facility]10-19-2022 13:16-0400Respiratory rate16 /minJENNIFER SVITLANA [facility]10-19-2022 13:16-0400Systolic blood tmyooion239 mm[Hg]NOE SVITLANA [facility] Encounters Encounter DateEncounter TypeCare ProviderFacilityStart: 06-84-1259rmlylwaghh Enrique Layne WATERSFacility:ROSE BellevueStart: 05-29-2025 End: 92-42-1172ccbwywvingBlwlbxaq Ball DO Work Phone: [facility] Work Phone: Start: 05-29-2025 End: 23-76-2763Ttkvlcq encounter procedureMago Tan MD-[facility] Work Phone: Start: 04-18-2025 End: 61-30-0369tfqlgzemvfQdnykcfc Ball DO Work Phone: [facility] Work Phone: Start: 04-18-2025 End: 36-24-2257Qlcnkut encounter procedureBenstacia Kingsley DO-[facility] Work Phone: Start: 04-18-2025 End: 55-48-1628Aylqata encounter statusBenstacia Kingsley [facility]: 03-03-2025 End: 67-13-3665oxnywlfrgdFuqczci R WATERSFacility:EU BellevueStart: 03-03-2025 End: 56-00-4738Emjucvu encounter procedureEnrique VÁSQUEZ [facility] start: 01-30-2025 End: 88-81-3082yhqgczoeljZtvdfzxmvC[facility] Work Phone: Start: 01-30-2025 End: 93-94-3100Wseakbq encounter procedureFirsharyns Physician Group-[facility] Work Phone: Start: 12-02-2024 End: 81-10-9925qtgvxiykbePotyetpmxCleveland [facility] Work Phone: Start: 12-02-2024 End: 04-73-3171Nvmdmgl encounter procedureFirelands Physician Group-[facility] Work Phone: Start: 09-24-2024 End: 16-58-6194Qqebcyx encounter procedureFirelands Physician Group-[facility] Work Phone: Start: 08-07-2024 End: 64-34-4349vtkwgnnokaPgagpdoiyC[facility] Work Phone: Start: 08-07-2024 End: 69-21-9293Pltdxlo encounter procedureFirelands Physician Group-[facility] Work Phone: Start: 35-21-9973Bgt-patient / Non-visitFirsentara [facility] Work Phone: Start: 07-26-2024 End: 45-68-3675tnkgnruwalXtgvufnvpF[facility]on [facility] Work Phone: Start: 07-26-2024 End: 82-25-4042Ifbngpw encounter procedureAt[facility] Work Phone: Start: 05-06-2024 End: 32-44-1939zbabnoprefYfaqicve SanchoFacility:[facility] Start: 34-07-0750Nyk-patient / Non-visitAt[facility] Work Phone: Start: 10-62-2897Yqr-patient / Non-visitAt[facility] Work Phone: Start: 04-15-2024 End: 44-50-2549iyxiiefummXjsxesaqfFulton County Health Center Work Phone: Start: 04-15-2024 End: 25-09-0287Euoniwvnl for general adult medical examination without abnormal findingsMetroHealth [facility] Medical Centertart: 04-15-2024 End: 16-15-8793Cbphumr encounter procedureAt[facility] Work Phone: Start: 02-20-2024 End: 51-86-0286Ync Drop offAurora X Orzech [facility] Start: 02-20-2024 End: 91-45-9041Wgzapos encounter procedureAurora X Orzech [facility] start: 02-20-2024 End: 54-08-1352fyflslvjhiCjgjmjhkqC[facility] Work Phone: Start: 02-20-2024 End: 70-83-1022Ldcqcsx encounter procedureAt[facility] Work Phone: Start: 45-23-3482Vji-patient / Non-visitAt[facility] Work Phone: Start: 12-27-2023 End: 76-01-8258jtudrhtejbAouaafuskC[facility] Work Phone: Start: 12-27-2023 End: 06-00-5362Xbdxsob encounter procedureAt[facility] Work Phone: Start: 12-19-2023 End: 90-63-7939rlqcoxinuqQsqyjfhybC[facility] Work Phone: Start: 12-19-2023 End: 60-30-2383Kxumcyi encounter procedureAt[facility] Work Phone: Start: 10-42-1151Puh-patient / Non-visitAt[facility] Health [facility] Work Phone: Start: 10-10-2023 End: 35-26-4618oyooswvtcxDigvofnf Ball Other [employer] Other Start: 96-34-8117Nitvofkfx encounterBenstacia Kingsley [facility]eltart: 10-09-2023 End: 23-75-6458ugcfcqojdrVzoudkrn Ball Other [employer] Other Start: 52-08-3311Mifgiu outpatient visit 25 minutes Segun SanchoProMedica [facility]lower Hospital ClinicStart: 10-09-2023 End: 78-91-1886Firwvgd encounter procedureAt[facility] Work Phone: Start: 09-22-2023 End: 01-89-4254kjegdoshxxEpmiznjo Ball Other [employer] Other Start: 09-99-9258Cxqafolzt encounterBenjamin BallFPG [facility] ClinicStart: 09-19-2023 End: 53-94-6705zbwuckivlnNfplfxnr Ball Other [employer] Other Start: 31-00-2135Rsmmyf outpatient visit 15 minutes Segun BallFPG [facility] ClinicStart: 93-05-8372Isklsyzcy encounterBenjamin BallFPG [facility] ClinicStart: 09-13-2023 End: 04-07-4678krcegxcanmMUWKDW H [facility] [employer] Other Start: 09-05-2023 End: 28-06-1716Isamfikep Result EncounterAnum Dumont MD Work Phone: noms External Department UnsolicitedStart: 09-05-2023 End: 52-72-0962Bghrmcezo Result EncounterHienderry Dacia Dumont MD Work Phone: [facility]oms External Department UnsolicitedStart: 07-19-2023 End: 17-50-7054ynistltwusKqlgzrqf Ball Other [employer] Other Start: 44-52-3373Ltkotf outpatient visit 15 minutes Segun BallFPG [facility] ClinicStart: 06-20-2023 End: 15-47-2512zxpzuvlwewGizqrznh Ball Other [facility] [employer] Other Start: 29-45-1016Cpltbrtxv encounterBenjamin BallFPG [facility] ClinicStart: 04-13-2023 End: 87-50-6162uylbqpytrqFrtxlgwd Ball Other [employer] Other Start: 03-82-3097Omgrzoxgt encounterBenjamin BallFPG [facility] ClinicStart: 04-10-2023 End: 92-91-7569rxjysliwsgBypakodp Ball Other [employer] Other Start: 86-21-0054Sribtvuem for general adult medical examination without abnormal findingsSegun Kingsley Medical ClinicStart: 49-77-4172Rzskpcux preventive med est patient 65yrs& olderSegun Kingsley Medical ClinicStart: 01-25-2023 End: 80-84-5591cjffowumqgGvjmlrkx Ball Other [employer] Other Start: 20-97-7824Okbwtz outpatient visit 15 minutes Segun Kingsley Medical ClinicStart: 01-20-2023 End: 85-97-4501wkecqzdeurDR ENRIQUE VÁSQUEZ .Facility:N5Hrbhb: 12-06-2022 End: 27-26-7019ylymqwoahtTntzreol Ball Other [employer] Other Start: 14-20-2037Tjndzv outpatient visit 25 minutes Segun Kingsley Medical ClinicStart: 10-27-2022 End: 23-24-7405jglepiabzxPU ENRIQUE VÁSQUEZ .Facility:O1Ecslt: 08-26-2022 End: 21-42-7966bdparrzqmkGW ANUM GIGISFacility:A6Tfmpp: 07-13-2022 End: 60-95-3449tgqijhwmkoPuhica ZieberFacility:D8Roney: 07-13-2022 End: 58-53-6039Xakckem encounter procedureJENNIFER E SVITLANA [facility] start: 07-06-2022 End: 70-73-0570bffnsmhkpwVQ SEGUN KINGSLEYFacility:T9Fvjjn: 06-20-2022 End: 08-33-3187ktmxywgujdVN SEGUN KINGSLEYFacility:Q9Gcadh: 24-30-9829Cdjxk health examinationSegun Kingsley Other [employer] Other Start: 03-11-2022 End: 16-81-0160dqarszqhkdCQ SEGUN BALLFacility:Q5Yoeyt: 03-09-2022 End: 57-24-3318frxalxahdmAY ENRIQUE VÁSQUEZ .Facility:B2Oeesm: 03-02-2022 End: 52-62-8581rbuumikoaqIG SEGUN BALLFacility:Q1Kwakk: 02-22-2022 End: 94-35-2280tlihfynarlMZ SEGUN BALLFacility:K7Ovbwd: 01-31-2022 End: 18-88-7605rsmoydcdjpBJ SEGUN BALLFacility:H1 Procedures DateProcedureProcedure DetailPerforming ClinicianStart: 81-99-9730Uvmaxpqntue of gyotmh-wqkfiy-jchpoukWvznwy Orzech Start: 19-45-4506Th soft tissue head & neck real time imge Desiree Dumont MD Work Phone: Start: 98-78-1343Qkglhjpukdiisx shockwave lithotripsy of calculus of kidneyJENNIFER SVITLANA Start: 75-41-0417VmcxqsfzfwxuTMTKVDJH SVITLANA Start: 82-04-3095Qciihhxaaibpij shockwave lithotripsy of calculus of kidneyJENNIFER SVITLANA Start: 98-16-4942Wpynneooguwjbb shockwave lithotripsy of calculus of kidneyJENNIFER SVITLANA Start: 53-32-8605Awmklccklkdwot shockwave lithotripsy of calculus of kidneyJENNIFER SVITLANA ColonoscopyJENNIFER SVITLANA End: 48-15-4140Zwewbkjskyedvk screeningBenjamin Ball Other HysterectomyJENNIFER SVITLANA Screening for malignant neoplasm of breastBenjamin Ball Other Plan of Treatment DateCare ActivityDetailAuthorComprehensive metabolic 1999 panel - Serum or [facility] HospitalComprehensive metabolic 2000 panel - Serum or [facility] HospitalComprehensive metabolic 2000 panel - Serum or [facility] HospitalMG Breast - bilateral ScreeningC[facility] Clinic [facility] HospitalMG Breast - bilateral Screening [facility] HospitalPatient EducationLow back pain in adults [facility] Work Phone: xr Foot - right GE 3 [facility] Immunizations Immunization DateImmunizationNotesCare IcvonabxKunulgju30-80-0835vyfxcldyv virus vaccine, split virus (incl. purified surface antigen)Segun Kingsley Other [employer] Other [id number] virus vaccine, unspecified formulationC[facility]09-28-2022influenza, high dose seasonal, preservative-freeBenstacia Kingsley Other [employer] Other 07-452313-93-6366hvfueqzxylks conjugate vaccine, 13 valent NOE SVITLANA [facility]12-08-2021COVID-19 Vaccine Pfizer - Documentation Purposes OnlySegun Kingsley Other [facility]12-08-2021SARS-CoV-2 (COVID-19) Ad26 vaccine, recombinantJENNIFER SVITLANA [facility]10-25-2021influenza virus vaccine, split virus (incl. purified surface antigen)Segun Kingsley Other [employer] Other [id number] virus vaccine, unspecified formulationC[facility]09-01-2021influenza virus vaccine, unspecified formulationJENNIFER SVITLANA [facility]04-13-2021diphtheria, tetanus toxoids and acellular pertussis vaccine, unspecified formulationBenkenrickmin Ball Other [facility]04-13-2021tetanus toxoid, reduced diphtheria toxoid, and acellular pertussis vaccine, adsorbed NOE SVITLANA [facility]04-02-2021COVID-19, mRNA, LNP-S, PF, 30 mcg/0.3 mL doseJENNIFER SVITLANA [facility] SystemComment on above:Reason for Medication: Nxwxvhnzizv70-89-9847GZYRS-90, mRNA, LNP-S, PF, 30 mcg/0.3 mL doseJENNIFER SVITLANA [facility] SystemComment on above:Reason for Medication: Antuciopbtw74-54-3790cvitnzqhekje polysaccharide vaccine, 23 valentBenjamin Ball Other [facility]11-17-2020influenza virus vaccine, split virus (incl. purified surface antigen)Segun Kingsley Other [employer] Other 11213434-91-6958lkhspxcxw virus vaccine, unspecified formulationC[facility]11-16-2020influenza virus vaccine, unspecified formulationJENNIFER SVITLANA [facility]10-31-2018influenza virus vaccine, split virus (incl. purified surface antigen)Segun Kingsley Other [employer] Other 104446-22-6853kwpnmvzmd virus vaccine, unspecified formulationJENNIFER SVITLANA [facility]01-18-2018influenza virus vaccine, split virus (incl. purified surface antigen)Segun Kingsley Other [place] [employer] Other 01535711-66-7051vrzodiqny virus vaccine, unspecified formulationC[facility] Payers DatePayer CategoryPayerPolicy [id number]-pay2024Medicare [id number] Health Insurance [id number] 2.[id number] 2.16.840.1.679076.3.579.2.593 [id number] 2.16.840.1.132558.3.57[id number] 2.16.840.1.710013.3.57[id number] 2.16.840.1.053391.3.579.[id number] 2.16.840.1.187944.3.57[id number] 2.16.840.1.596322.3.579.[id number] 2.16.840.1.830434.3.57[id number] 2.16.840.1.230997.3.57[id number] 2.16.840.1.158927.3.57[id number] 2.16.840.1.076488.3.579.[id number] 2.16.840.1.222945.3.579.2.57098-25-2025Tpmaxtt779624 2.16.840.1.319642.3.57[id number] 2.16.840.1.834060.3.579.[id number] 2.16.840.1.75[id number] 2.16.840.1.447326.3.579.2.531 Social History DateTypeDetailFacilityStart: 07-13-2022 End: 07-89-2459Xpyqysn smoking statusNever smoked tobacco (finding)[facility]: 46-76-9684Dknxpxg smoking statusNeverExecutive Urology of Memorial Hospitaltart: 51-45-0832Fup Assigned At [facility]tart: 20-46-7309Dtr Assigned At [facility]ertart: 11-27-2020 End: 34-02-3043QxdQpmlsw (finding)[facility] Medical Centerexual OrientationExec[facility] Tobacco smoking status NHISTobacco smoking consumption unknownNOWI HealthcareStart: 66-53-4505Tstdwng of Social functionNOWI Healthcare Start: 43-25-7356Kcv assigned at birthNot on [facility] Functional Status UbzxFinvzpkaiuOvoltmHgsayzvk68-17-1128Hpqysjbpgl StatusN/AExec[facility]10-19-2022Functional StatusN/AExec[facility] Clinical Notes 07-13-2022 to 04-18-2025 Note Date & SkfyUrznKrglrexf14-51-6844 Evaluation note* Diagnosis Onset Date Resolution Status Admit Date Elevated cholesterol acuteJuly 2024 9:17amEssential (primary) hypertensionacuteJuly 2024 9:17amGastroesophageal reflux 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acute April 18, 2025 9:17amIFG (impaired fasting glucose)acuteJuly 2024 9:17am Lumbar spondylosisacuteJu2024 9:17amPrimary insomniaacuteJu2024 9:17amRecurrent major depressive disorder, in full remissionacuteApril 18, 2025 9:17amScreening mammogram for breast cancernoneactiveApril 18, 2025 9:17amWellness examinationnoneactiveJuly 2024 9:17am [facility] Work Phone: 1(734) 429-825006-09-2025 Hospital Discharge instructions Patient Education 03/03/2025 12:04:21 [...] include: ?8 oz (237 mL) of milk, kphxrrn-tvmeekyqqgpg-qltww milk, and calcium- fortifiedfruit juice. Calcium-fortified means [...] ?Spinach (cooked), rhubarb, beets, sweet potatoes, and Maldivian chard. ?Peanuts. ?Potato chips, nigerien fries, and baked potatoes with skin on. ?Nuts and nut products. ?Chocolate. If you regularly take a diuretic medicine, make sure to eat at least 1 or 2 servings of fruits or vegetables that are high in potassium each day. These include: ?Avocado. ?Banana. ?Brookings, prune, carrot, or tomato juice. ?Baked potato. [...] magnesium, fish oil, or vitamin B6. Take hpmv-phy-mqxpezo and prescription medicines only as told by [...] Casseroles. Pizza. Lasagna. Frozen meals. Potato chips. Macedonian fries. The items listed above may not [...] provider. Document Revised: 12/22/2022 Document Reviewed: 12/22/2022 [employer] Patient Education 2023 Foodist. Follow Up Care 02/20/2024 15:25:41 With:MARCY GRESHAM, Enrique Layne, URL Address: [facility] [address] , [place] [address]- When: Unknown [facility] 06-09-2025 NotePatient Education Nephrology Dietary Guidelines to [...] ? 8 oz (237 mL) of milk, btoklfg-lcdfgpaiudbx-bwezh milk, and calcium- fortifiedfruit juice. Calcium-fortified means [...] Spinach (cooked), rhubarb, beets, sweet potatoes, and Maldivian chard. ? Peanuts. ? Potato chips, nigerien fries, and baked potatoes with skin on. ? Nuts and nut products. ? Chocolate. ??? If you regularly take a diuretic medicine, make sure to eat at least 1 or 2 servings of fruits or vegetables that are high in potassium each day. These include: ? Avocado. ? Banana. ? [place], prune, carrot, or tomato juice. ? Baked [...] fish oil, or vitamin B6. ??? Take acpq-rfc-qkhpbuf and prescription medicines only as told by your health (more content not included)...[facility]03-10-2025 Evaluation note* Diagnosis Onset Date Resolution Status Admit Date Elevated cholesterol acuteMarch 2024 10:28amEssential (primary) hypertensionacuteMarch 2024 10:28amGastroesophageal reflux 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 acuteMarch 2024 10:28amLumbar spondylosisacuteMarch 2024 10:28am Primary insomniaacuteMarch 2024 10:28amRecurrent major depressive disorder, in full remissionacuteMarch 2024 10:28amRhinitisnoneactiveMarch 2024 10:28am [facility] Work Phone: 1(285) 100-185712-31-2024 Evaluation note* Diagnosis Onset Date Resolution Status Admit Date Abdominal pain acuteDecember 2023 10:46amChange in bowel habitnoneactiveDecember 2023 10:46amElevated cholesterolacuteMarch 2024 10:28amEssential (primary) hypertensionacuteMarch 2024 10:28amGastroesophageal reflux 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acuteMarch 2024 10:28amLumbar spondylosis acuteMarch 2024 10:28amPrimary insomniaacuteMarch 2024 10:28am Recurrent major depressive disorder, in full remissionacuteMarch 2024 10:28am [facility] Work Phone: 1(619) 960-173111-01-2024 Evaluation note* Diagnosis Onset Date Resolution Status Admit Date Allergic contact dermatitis due to cloth ing acuteNov2023 8:51amChronic venous insufficiency of lower extremity acuteJuly 26, 2024 8:51amElevated cholesterolacuteNovember 2023 9:17amEssential (primary) hypertensionacuteNovember 2023 9:17am Gastroesophageal reflux 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acuteNov2023 9:17amLumbar spondylosisacuteNov2023 9:17amPrimary insomniaacuteAugust 07, 2024 9:17amRecurrent major depressive disorder, in full remissionacuteAugust 07, 2024 9:17am [facility] Work Phone: [phone] 303-141305-28-2024 Hospital Discharge instructions Patient Education 02/20/2024 16:06:08 [...] include: ?8 oz (237 mL) of milk, gceajfl-fudzgityhrqj-lwfff milk, and calcium- fortifiedfruit juice. Calcium-fortified means [...] ?Spinach (cooked), rhubarb, beets, sweet potatoes, and Maldivian chard. ?Peanuts. ?Potato chips, nigerien fries, and baked potatoes with skin on. ?Nuts and nut products. ?Chocolate. If you regularly take a diuretic medicine, make sure to eat at least 1 or 2 servings of fruits or vegetables that are high in potassium each day. These include: ?Avocado. ?Banana. ?Brookings, prune, carrot, or tomato juice. ?Baked potato. [...] magnesium, fish oil, or vitamin B6. Take kutc-vkx-ptnjmci and prescription medicines only as told by [...] Casseroles. Pizza. Lasagna. Frozen meals. Potato chips. Macedonian fries. The items listed above may not [...] provider. Document Revised: 12/22/2022 Document Reviewed: 12/22/2022 [employer] Patient Education 2022 Foodist. 02/20/2024 16:06:04 Kidney Stones, Jrmy-qg-Qpay Kidney Stones Kidney stones are rock-like masses [...] Follow these instructions at home: Medicines Take exvj-dke-kqlhuhc and prescription medicines only as told by [...] provider. Document Revised: 05/16/2022 Document Reviewed: 05/16/2022 [employer] Patient Education 2022 Foodist. [facility] Evaluation note* Encounter Date Diagnosis Assessment Notes Treatment Notes Treatment Clinical Notes Sep, COVID-19 (ICD-10 - U07.1) [facility] Other 01-15-2024 Evaluation note* Encounter Date Diagnosis [...] interruption. Instructed to avoid d/c meds abruptly [employer] [employer] Other 12-26-2023 Evaluation note* Encounter Date Diagnosis [...] needed - XR to r/o compression fx [employer] [employer] Other 12-26-2023 Evaluation note* Encounter Date Diagnosis [...] needed - XR to r/o compression fx [facility] Other 12-20-2023 Evaluation note* Encounter Date Diagnosis Assessment Notes Treatment Notes Treatment Clinical Notes Aug, Nontoxic single thyr oid nodule (ICD-10 - E04.1) Serial US w/ stable size and appearance. Referred to ENT w/ no further scans recommended. [facility] [employer] Other 10-25-2023 Evaluation note* Encounter Date Diagnosis [...] Amlodipine to 5mg qd while taking Paxlovid [employer] Other 07-17-2023 Evaluation note* Encounter Date Diagnosis [...] SBE and yearly mammogram - due in [facility] [employer] Other 05-03-2023 Evaluation note* Encounter Date Diagnosis [...] pneumonia Due for COVID booster and Shingrix [employer] [employer] Other 03-14-2023 Evaluation note* Encounter Date Diagnosis [...] or drinking prior to bedtime. Continue PPI [employer] Other 10-19-2022 Hospital Discharge instructions Patient Education 07/13/2022 13:30:11 Kidney Stones, Qpax-dm-Ztnj Kidney Stones Kidney stones are rock-like masses [...] Follow these instructions at home: Medicines Take babc-wap-zhypvca and prescription medicines only as told by [...] 02/27/2009 Document Revised: 01/28/2020 Document Reviewed: 01/28/2020 [employer] Patient Education 2020 Foodist. Follow Up Care 10/18/2021 12:21:40 With:SVITLANA IBARRA, NOE Anderson, URL Address: [facility] [place] [address] [facility] [place] [address] [phone] When: Unknown [facility] 10-19-2022 Evaluation + Plan note Future Scheduled Tests Laboratory* Basic Metabolic Panel 07/13/22 [facility] evaluation + Plan note Future Appointments Appointment Date:02/24/2025 09:15:00 AM Scheduled Provider:Enrique VÁSQUEZ MD Location:[facility] Appointment Type:URO Office Visit [facility] evaluation + Plan note Future Appointments Appointment Date:02/24/2025 09:15:00 AM Scheduled Provider:Enrique VÁSQUEZ MD Location:[facility] Appointment Type:URO Office Visit Diagnostic Tests Pending * Urine Culture [facility] Future Appointments Appointment Date:03/02/2026 10:30:00 AM Scheduled Provider:Enrique VÁSQUEZ MD Location:[facility] Appointment Type:URO Office Visit [facility] evaluation noteNo [facility] Other Evaluation note* Diagnosis Onset Date Resolution Status Plantar fasciitis of right foot noneactiveRight foot painSalem [facility] Work Phone: evaluation note* Diagnosis Onset Date Resolution Status Plantar fasciitis of right foot noneactiveRight foot painnoneactiveEssential (primary) hypertensionacute OsteoporosisacuteAvulsion fracture of metatarsal bone of right footSal[facility] City [facility] Work Phone: Evaluation note* Diagnosis Onset Date Resolution Status Plantar fasciitis of right foot noneactiveRight foot painnoneactiveOsteoporosisacuteAvulsion fracture of metatarsal bone of right footSalem City Hospital Work Phone: evaluation note* Diagnosis Onset Date Resolution Status IBS (irritable bowel syndrome) acuteLow back painacuteElevated cholesterolacuteEssential (primary) hypertension acuteGastroesophageal reflux 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acute Lumbar spondylosisacuteOsteoporosisacutePrimary insomniaacuteRecurrent major depressive disorder, in full remissionacuteScreening mammogram for breast cancer noneactive [facility] Work Phone: evaluation note* Diagnosis Onset Date Resolution Status IBS (irritable bowel syndrome) acuteLow back painacuteElevated cholesterolacuteEssential (primary) hypertension acuteGastroesophageal reflux 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acute Lumbar spondylosisacutePrimary insomniaacuteRecurrent major depressive disorder, in full remissionacuteScreening mammogram for breast cancernoneactiveWellness examinationnonK[facility] Work Phone: Evaluation noteNo assessment information available [facility] Work Phone: evaluation note* Diagnosis Onset Date Resolution Status Admit Date Elevated cholesterol acuteJuly 2024 9:17amEssential (primary) hypertensionacuteJuly 2024 9:17amGastroesophageal reflux 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acute April 18, 2025 9:17amLumbar spondylosisacuteJuly 2024 9:17amPrimary insomniaacuteJuly 2024 9:17amRecurrent major depressive disorder, in full remissionacuteJuly 2024 9:17amScreening mammogram for breast cancer noneactiveJuly 2024 9:17amWellness examinationnoneactiveJuly 2024 9:17am [facility] Work Phone: History general Narrative - [...] NephrolithiasisMedical HistoryAllergic conjunctivitis, bilateralSurgical History ESWL, KIDNEY, [id number] HistoryFINE NEEDLE ASPIRATION, NODULE, THYROID 2020Surgical [id number] HistoryTAH/SKH2703Dpqmrgmkwlcckop HistorySEE SURGICAL HX [facility] Other History general Narrative - ReportedNoUP[facility] [employer] Other Hospital course Narrative No data available for this section [facility] Hospital Discharge instructions No data available for this section [facility] No data available for this section [facility] reason for referral (narrative)* Reason Referral for treatme nt of chronic low back pain Diagnosis 1 Acute bilateral low back pain without sciatica (M54.50) Diagnosis 2 Lumbar spondylosis ( M47.816) Referral Organization [facility] Sancho rivas Referring Provider First Name Segun Referring Provider Last Name Sacnho Referring Provider Specialty Internal Me dicvictor hugo Referred Organization [facility] Referred Address [address], [place],[address] Referred Provider Specialty Pain Medicin e Referral [...] for injections. Clinical Notes Include XR results [employer] Other Reason for referral (narrative)No reason for referral information availableC[facility] Work Phone: Summary Purpose Family History [...] Date Segun Kingsley DO PCP - GeneralInternal Kasbifhj68/7/23 REASON FOR VISIT (unrecogniz ed section and content) 3 month Follow upPossible Sp ider [phone] COVID +No Informationback painback painXR results6 monthCOVID + INFORMATION SOURCE (unrecogn ized section and content) DATE CREATED AUTHOR 01/27/2023 [facility] DATE CREATED AUTHOR AUTHOR'S ORGANIZ ATION 09/14/2023 [facility] EPIC DATE CREATED AUTHOR AUTHOR'S ORGANIZ ATION 05/07/2024 [facility] DATE CREATED AUTHOR AUTHOR'S ORGANIZ ATION 03/04/2025 [facility] DATE CREATED AUTHOR AUTHOR'S ORGANIZ ATION 03/05/2025 [facility] Goals (unrecognized section and content) Goals [...] BE BASED ON THE PRIMARY CLINICAL RECORDS. [employer] provides no warranty or guarantee of the accuracy or completeness of information in this document.
[2025-08-25 08:34] VITALS: BP 119/78; PULSE 85; TEMP 36.2; O2SAT 96
[2025-08-25 09:09] VITALS: BP 154/88; PULSE 88; O2SAT 98
[2025-08-25 09:10] VITALS: BP 163/86; PULSE 80; O2SAT 94
[2025-08-25] MEDS: LIDOCAINE HCL 2% 400 MG/20 ML MDV INJ (09:11)
[2025-08-25] MEDS: IOHEXOL 240 MG/ML - 10 ML VIAL 24 MG INJ (09:11)
[2025-08-25] MEDS: BUPIVACAINE HCL 0.25% PF 25 MG/10 ML VIAL 4 ML INJ (09:11)
[2025-08-25] MEDS: METHYLPREDNISOLONE ACETATE 40 MG/ML VIAL 80 MG INJ (09:12)
--- NOTE | 2025-08-25 09:16 | W.PM.PROCNOT ---
Date of procedure: 08/25/25 Pre-op diagnosis: Pain due to bilateral sacroiliitis Post-op diagnosis: same as pre-op Procedure: Procedure: Bilateral sacroiliac joint injection Medications: Bupivacaine 0.25% 4cc, depomedrol 40mg x2 After informed consent was obtained, the patient was brought to the medical procedure unit and placed in the prone position, when a timeout was completed verifying correct patient, procedure, site, positioning, implant, and/or special equipment.? The skin overlying the area was prepped and draped in standard sterile fashion using alcohol.? A 25-gauge needle was inserted towards the left sacroiliac joint under direct fluoroscopic imaging.? Needle tip was advanced until the joint was encountered.? We instilled a total of 2 mL of solution.? The same procedure was then completed on the right side.? Postoperatively needles were removed.? The patient tolerated the procedure well without complication.? The patient reported reduction in pain symptoms postoperatively. Anesthesia: Local Surgeon: Niall Hawthorne Pathology: none sent Condition: stable Disposition: no change
== END 2025-08-25 09:23 | disposition home or self-care (01) ==
PROVIDERS: PCP Internal Medicine; Visit Provider Anesthesiology
DX: M46.1 Sacroiliitis, not elsewhere classified (principal)
CPT/HCPCS: 27096; J0665; J1010; Q9966

== ENCOUNTER 2025-09-24 10:30 | Outpatient (OUT) | payer OTHER, SELFPAY ==
--- OUTSIDE RECORDS SUMMARY | 2025-09-24 10:33 | XMS_ITS | Clinical Summary ---
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 Name Role Phone Segun Kingsley DO Primary Care Provider Allergies No known active allergies Medications MedicationSigDispense [...] same timeActive Active Problems ProblemNoted DateDiagnosed DateThyroid qqznzw2709/07/20239557Cdyejaudtmoa50/14/2023 Depression with jfgelpg5009/07/20236662Vgldbk77/14/2023hronic back pain09/07/2023 Irritable bowel syndrome with msubmvtnfuhd98/14/2023Lumbar ycirzwnruow23/14/2023 Family History Medical HistoryRelationNameCommentsHeart failureFatherCancerMotherHypertension MotherHeart failurePaternal GrandfatherRelationNameStatusCommentsFatherMother Paternal Grandfather Social History Tobacco UseTypesPacks/DayYears UsedDateSmoking Tobacco: NeverSmokeless Tobacco: Never Tobacco Cessation:Counseling Given: Not Answered Alcohol UseStandard Drinks/WeekCommentsNot Currently0 (1 standard drink = 0.6 oz pure alcohol)CommentsUnknownSex and Gender InformationValueDate Recorded Sex Assigned at BirthNot on fileLegal IybLdoemn84/15/2023 6:37 PM EDTGender IdentityNot on fileSexual OrientationNot on file Last Filed Vital Signs Vital SignReadingTime TakenCommentsBlood Qxfwdzkx037/6909/13/2023 11:08 AM EST Pulse--Temperature--Respiratory Rate--Oxygen Saturation--Inhaled Oxygen Concentration--Ncjsxv70.5 kg (151 lb)09/14/2022 12:00 PM UTAXwaocu592.6 cm (5' 4 )09/14/2022 12:00 PM ESTBody Mass Index25.9209/14/2022 12:00 PM EST Plan of Treatment Not on file Insurance * Guarantor: Zaria Corona TypeRelation to PatientDate of BirthPhone Billing AddressPersonal/TnmyygFgqs1955 [id number] [address] Care Teams Team MemberRelationshipSpecialtyStart DateEnd Date Segun Kingsley DO PCP - GeneralInternal Fiyhdiue68/7/23
--- OUTSIDE RECORDS SUMMARY | 2025-09-24 10:38 | XMS_ITS | CCD ---
Author Organization [facility] Care Team Providers Care Managing Editor Name Role Phone SEGUN KINGSLEY Primary Care [...] Unavailable Segun Kingsley DO Primary Care Provider [phone] Sancho LEUNG, Segun Attending Provider Segun Kingsley DO Primary Care Provider [phone] Segun Kingsley DO Attending Provider Mago Tan MD Attending Provider [phone] Segun Kingsley DO Primary Care Provider Allergies Allergy ClassificationReported Allergen(s)Allergy TypeDate of OnsetReaction(s) Facility (2 sources)patient allergy list reviewed by nurse or physiciaPropensity to adverse [id number]:aBIZinaBOX Other (2 sources)No Known Medication Allergies; Translations: [No Known Medication Allergies]Propensity to adverse reactions (disorder)[facility] Repository Medications Current Medications MedicationDrug Class(es)DatesSig (Normalized)Sig (Original)acetaminophen 500 mg oral tablet (4 sources)Start: 89-89-3570lnfn 500 mg by mouth twice dailyTylenol 500 mg, Oral, BID Start Date: 05/05/21 Status: Ordered Repeat number: [id number] 60 actuat albuterol 0.09 mg/actuat metered dose inhaler (12 sources)beta2-Adrenergic AgonistStart: 78-35-6477ducm 2 puff(s) by inhalation every four hours as neededStart: 47-68-3176iwxo 2 puff(s) by inhalation every four hours as neededAlbuterol Sulfate HFA 108 (90 Base) MCG/ACT 2 puffs as needed Inhalation every 4 hrs Oct, Not-TakingStart: 72-10-3334Hnncb: 31-48-5455tzdu 2 puff(s) by inhalation every four hours as neededAlbuterol Sulfate HFA 108 (90 Base) MCG/ACT 2 puffs as needed Inhalation every 4 hrs Oct, Not-TakingamLODIPine 10 mg oral tablet (20 sources)Dihydropyridine Calcium Channel BlockerStart: 87-04-8540esfg 1 tablet by mouth once dailyStart: 12-18-2023 End: 31-01-7196thrz 1 tablet by mouth once dailyAmlodipine 10 mg tablet Discontinued 10 MG PO Daily April 15, 2024 2:43pm April 24, 2025 5:27pm Start: 13-08-3779oaak 1 tablet by mouth once dailyamLODIPine 5 mg Tab 5 mg = 1 tab(s), Oral, Daily Start Date: 05/05/21 Status: Ordered Repeat number:1take 1 tablet by mouth once dailyatorvastatin 40 mg oral tablet (20 sources)HMG-CoA Reductase InhibitorStart: 69-23-7736ldrk 1 tablet by mouth once daily in the eveningStart: 11-29-2023 End: 89-99-1477zyer 1 tablet by mouth once daily in the eveningAtorvastatin 40 mg tablet Discontinued 0 .ROUTE .COMPLEX November 29, 2023 10:55pm April 1542:47pm TAKE ONE TABLET BY MOUTH ONCE DAILY IN THE EVENINGStart: 11-29-2023 End: 36-56-2018uiyv 1 tablet by mouth once daily in the eveningAtorvastatin Discontinued 0 .ROUTE .COMPLEX November 29, 2023 10:55pm April 15, 2024 2:47pm TAKE ONE TABLET BY MOUTH ONCE DAILY IN THE EVENINGStart: 62-91-3592jdgn 1 tablet by mouth once daily in the eveningAtorvastatin Active 0 .ROUTE .COMPLEX November 29, 2023 10:55pm TAKE ONE TABLET BY MOUTH ONCE DAILY IN THE EVENINGStart: 05-05-2021 End: 92-27-3693jiko 1 tablet by mouth once dailyAtorvastatin 40 mg tablet Discontinued 40 MG PO Daily April 15, 2024 2:43pm November 21, 2024 10:47pmazelastine hydrochloride 0.137 mg/actuat metered dose nasal spray (20 sources)Histamine-1 Receptor AntagonistStart: 97-95-3905htyu 1 puff(s) nasal route twice dailytake 1 puff(s) nasal route twice dailyAzelastine HCl 137 MCG/SPRAY 1 puff in each nostril Nasally Twice a day Activecalcium carbonate 1500 mg oral tablet (4 sources)Start: 38-33-9074nxtc 1 tablet by mouth twice dailycalcium (as carbonate) 600 mg oral tablet 600 mg = 1 tab(s), Oral, BID Start Date: 05/05/21 Status: Ordered Repeat number: 1FLUoxetine 40 mg oral capsule (20 sources)Serotonin Reuptake InhibitorStart: 09-26-2024 End: 67-12-4269pwee 1 capsule by mouth once dailyStart: 03-29-2024 End: 86-83-0435pxpx 1 capsule by mouth once dailyFluoxetine 40 mg capsule Discontinued 0 .ROUTE .COMPLEX March 29, 2024 8:44am April 15, 2024 2:47pm TAKE ONE CAPSULE BY MOUTH ONCE DAILYStart: 05-05-2021 End: 41-65-0630noql 1 capsule by mouth once dailyFluoxetine 40 mg capsule Discontinued 40 MG PO Daily April 15, 2024 2:44pm September 26:55pm fluticasone propionate 0.05 mg/actuat metered dose nasal spray (12 sources)CorticosteroidStart: 15-43-8131mmfd 1 spray(s) nasal route once dailyStart: 13-92-7973tbax 1 spray(s) nasal route once dailyFluticasone Propionate 50 MCG/ACT 1 spray in each nostril Nasally Once a day for 21 days Oct, Not-TakingStart: 43-50-8395tokgiWAIQVKmovyzyna 12.5 mg oral capsule (20 sources)Thiazide DiureticStart: 03-03-2025 End: 98-15-4637bwjk 1 capsule by mouth once dailyhydrochlorothiazide 12.5 mg Cap 12.5 mg = 1 cap(s), Oral, Daily, X 90 day(s), # 90 cap(s), Refills(s) 3, Pharmacy: [facility], 163, cm, 03/03/25 11:35:00 EDT, Height/Length Dosing, 67, kg, 03/03/25 11:35:00 EDT, Weight Dosing Start Date: 03/03/25 Stop Date: 02/26/26 Status: Ordered Quantity: 90.0 Unit: cap(s) Repeat number: 4Start: 95-17-9539Mpdfu: 88-45-1627twjd 12.5 mg by mouth once dailyHydrochlorothiazide Active 12.5 MG PO Daily April 15, 2024 2:42pmStart: 06-08-2022 End: 46-05-8234sviw 1 tablet by mouth once dailyHydrochlorothiazide 25 mg tablet Discontinued 25 MG PO Daily December 18, 2023 12:00am April 15, 2024 2:47pm Lisinopril (12 sources)Angiotensin Converting Enzyme InhibitorLisinopril Not-Taking/PRN Lisinopril Not-TakingmethylPREDNISolone 4 mg oral tablet (12 sources)CorticosteroidStart: 26-52-0731Ulqxd: 87-30-4353wyzhgyjekj 40 mg delayed release oral capsule (20 sources)Proton Pump InhibitorStart: 29-84-4698fspz 1 capsule by mouth once daily at breakfastStart: 10-18-2021 End: 37-82-9798gqnh 1 capsule by mouth once daily at breakfastOmeprazole 40 mg capsule,delayed release(DR/EC) Discontinued 40 MG PO Daily April 15, 2024 2:44pm October 23, 2024 7:04pm ON AN EMPTY STOMACH, FOLLOWED IN 30 MINS BY BREAKFASTpaxlovid (300/100) 20 x 150 mg & 10 x 100mg tablet therapy pack (2 sources)Start: 63-75-3521imcu 3 tablets by mouth every twelve hoursPaxlovid (300/100) 20 x 150 MG & 10 x 100MG 3 tablets Orally Twice a day for 5 days Sep, ActiveStart: 62-35-2238Nbxifdgz (300/100) 20 x 150 MG & 10 x 100MG as directed Orally bid for 5 days Jun, ActivePotassium Bicarb & Chloride (12 sources)Potassium Bicarb & Chloride 20 MEQ packet daily ActivePotassium Bicarb And Chloride (7 sources)Start: 23-25-4166Nvhwvnast Bicarb And Chloride Active 1 PACKET PO Daily December 18, 2023 12:00amPotassium Bicarb And Chloride 20 mEq packet (5 sources)Start: 58-61-6038vdtv 20 mEq by mouth once dailyStart: 04-75-9043mjtc 20 mEq by mouth once dailyPotassium Bicarb And Chloride 20 mEq packet Active 1 PACKET PO Daily December 18, 2023 12:00am Complies with drug therapyStart: 63-97-9268dfqi 20 mEq by mouth once dailyPotassium Bicarb And Chloride 20 mEq packet Active 1 PACKET PO Daily December 18, 2023 12:00amStart: 80-39-6815znjo 20 mEq by mouth once dailyPotassium Bicarb And Chloride 20 mEq packet Active 1 PACKET PO Daily December 17, 2023 11:00pmtiZANidine (12 sources)Central alpha-2 Adrenergic AgonisttiZANidine HCl Not-Taking/PRN tiZANidine HCl Not-TakingtraMADol (12 sources)Opioid AgonisttraMADol HCl Not-Taking/PRNtraMADol HCl Not-Taking triamcinolone acetonide 0.005 mg/mg topical ointment (20 sources)CorticosteroidStart: 18-12-4481Cbhej: 74-59-1691Uxyagjxwjbzcc Acetonide 0.5 % ointment Active 1 APPLIC TOPICAL Twice daily 45 July 262:00amStart: 32-32-4150Immgmeqjfbxkq Acetonide 0.5 % ointment Active 1 APPLIC TOPICAL Twice daily 45 July 251:00pmStart: 07-26-2024 Triamcinolone Acetonide Active 1 APPLIC TOPICAL Twice daily 45 July 26, 2024 12:00amStart: 37-23-7343Epeaopwualsqx Acetonide 0.025 % 1 application Externally twice daily as needed for 14 days ActiveVitamin D3 (4 sources)Start: 17-08-3659Bklbgdv D3 1,000 International_Unit, Oral, Daily Start Date: 05/05/21 Status: Ordered Repeat number:1Start: 22-12-4474Kgzgefg D3 1,000 International_Unit, Oral, Daily Start Date: 05/05/21 Status: Ordered{20 (nirmatrelvir 150 MG Oral Tablet) / 10 (ritonavir 100 MG Oral Tablet) } Pack [Paxlovid 5-Day] (1 source)Start: 94-28-7757Abzgovnp (300/100) 20 x 150 MG & 10 x 100MG as directed Orally bid for 5 days Jun, Active Completed/Discontinued Medications MedicationDrug Class(es)DatesSig (Normalized)Sig (Original)potassium bicarbonate 25 meq effervescent oral tablet (4 sources)Start: 04-24-2024 End: 49-25-0707nchf 1 tablet by mouth twice dailyKlor-Con/EF 25 mEq oral tablet, effervescent 25 mEq = 1 tab(s), Oral, BID, X 90 day(s), # 180 tab(s), Refills(s) 3, Pharmacy: [facility]/pharmacy #[id number], 163, cm, 02/20/24 14:56:00 EDT, Height/Length Dosing,68.1, kg, 02/20/24 14:56:00 EDT, Weight Dosing Start Date: 04/24/24 Stop Date: 04/19/25 Status: Ordered Quantity: 180.0 Unit: tab(s) Repeat number: 4 Start: 27-61-6585yyry 1 tablet by mouth twice dailyKlor-Con/EF 25 mEq oral tablet, effervescent 25 mEq = 1 tab(s), Oral, BID, # 60 tab(s), Refills(s) 11, Pharmacy: [facility]/pharmacy #[id number], 163, cm, 02/13/23 14:27:00 EDT, Height/Length Dosing, 70, kg, 02/13/23 14:27:00 EDT, Weight Dosing Start Date: 04/10/23 Status: OrderedStart: 36-34-8446tzhh 1 tablet by mouth twice dailyEffer-K 25 mEq oral tablet, effervescent 25 mEq = 1 tab(s), Oral, BID, # 60 tab(s), Refills(s) 8, Ph armacy: [facility], 163, cm, 10/18/21 11:50:00 EST, Height/Length Dosing, 70, kg, 10/18/21 11:50:00 EST, Weight Dosing Start Date: 10/18/21 Status: OrderedpredniSONE 20 mg oral tablet (6 sources)Start: 07-26-2024 End: 16-12-7907Nhiouguwqz 20 mg tablet Discontinued 20 MG PO .COMPLEX 15 July 26, 2024 12:00am September 24, 2024 11:48am 20mg bid w/ food x 5 days then qd w/ food x 5 daystemazepam 15 mg oral capsule (20 sources)BenzodiazepineStart: 05-05-2021 End: 88-04-3465lypx 1 capsule by mouth once daily at bedtime as neededTemazepam 15 mg capsule Discontinued 15 MG PO Daily at bedtime as needed for insomnia April 15, 2024 2:46pm September 06, 2024 5:06pm Problems Active Problems Problem ClassificationProblemDateDocumented DateEpisodic/ChronicAbdominal pain (20 sources)Flank pain; Translations: [Epigastric pain]Onset: 03-04-2015 99-99-7928WhgrgoyzXlpqj bronchitis (14 sources)Acute bronchitis; Translations: [Acute bronchitis, unspecified] Onset: 05-49-9069EctyzjwaLzkniegr reactions (13 sources)Contact dermatitis; Translations: [Contact dermatitis and other eczema, due to unspecified cause]Onset: 049834-35-0990UmetgaaoLvgmrko disorders (20 sources)Generalized anxiety disorder; Translations: [Generalized anxiety disorder]Onset: 551847-02-6647QnwqqyhPunebsnx of urinary tract (20 sources)Kidney stone; Translations: [Calculus of kidney]Onset: 07-13-2022 EpisodicCardiac dysrhythmias (13 sources)Tachycardia; Translations: [Tachycardia, unspecified]Onset: 90-68-6859JxcetsaaKjkcduyl mellitus without complication (8 sources)Impaired fasting glycemia; Translations: [Impaired fasting glucose] 88-53-9838WbcujghoAbhvckfm of white blood cells (7 sources)Leukocytosis; Translations: [Elevated white blood cell count, unspecified]21-82-9243OxenbeeSqeekwbed of lipid metabolism (20 sources)Hyperlipidemia; Translations: [Hypercholesterolemia]05-05-2021 ChronicDiverticulosis and diverticulitis (9 sources)Diverticulosis of sigmoid colon; Translations: [Diverticulosis of large intestine without perforation or abscess without bleeding]ChronicE Codes: Natural/environment (1 source)Bitten or stung by nonvenomous insect and other nonvenomous arthropods, initial encounterEpisodicEsophageal disorders (20 sources)Gastro-esophageal reflux disease with esophagitis; Translations: [Gastroesophageal reflux 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]Onset: 918800-41-8155YszvoqbVheunsefc hypertension (20 sources)Hypertensive disorder; Translations: [Essential hypertension]Onset: 590185-59-6951XxpohclDmhnr and electrolyte disorders (20 sources)Hypokalemia; Translations: [Hypokalemia]Onset: 08-54-5719Txpgumal Fracture of lower limb (3 sources)Fracture of unspecified metatarsal bone(s), right foot, initial encounter for closed fracture; Translations: [Closed fracture of metatarsal bone(s)]20-42-6116SebjmtxnHrdwcsmbgpqqm symptoms and ill-defined conditions (20 sources)Microscopic hematuria; Translations: [Dysuria]Onset: 09-09-2016 42-52-2474DzpgjnziQwhfpccbhgaxw and screening for infectious disease (7 sources)Vaccination given; Translations: [Encounter for immunization]Episodic Inflammation; infection of eye (except that caused by tuberculosis or sexually transmitteddisease) (9 sources)Acute atopic conjunctivitis; Translations: [Acute atopic conjunctivitis, bilateral]EpisodicMalaise and fatigue (20 sources)Fatigue; Translations: [Other fatigue]Onset: 94-77-3873Tfvyeigq Miscellaneous mental health disorders (17 sources)Globus sensation; 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] 39-57-5832MereuuzPbjt disorders (20 sources)Single episode of major depression in full remission; Translations: [Major depressive disorder, single episode, in full remission]Onset: 09-25-1959 ChronicOsteoarthritis (4 sources)Wjssqvkqr37-10-4675MjohhonCdwmpycbmcoc (15 sources)Osteoporosis; Translations: [Age-related osteoporosis without current pathological fracture]42-35-0302ZxmdrlnHlkic circulatory disease (7 sources)Cardiovascular symptoms; Translations: [Other specified symptoms and signs involving the circulatory and respiratory systems]EpisodicOther congenital anomalies (7 sources)Congenital spondylolysis of lumbosacral region; Translations: [Congenital spondylolysis, lumbosacral region]Onset: 39-78-5268FuxlconDamva connective tissue disease (4 sources)Plantar fascial fibromatosis; Translations: [Plantar fascial fibromatosis]77-55-4615QqbuwnasBelau connective tissue disease (4 sources)Pain in right foot; Translations: [Pain in limb]81-99-0146Fygjrnky Other diseases of kidney and ureters (3 sources)Hydronephrosis due to ureteral uecrzklsulc49-19-0553QkdrrrhbSphrs diseases of veins and lymphatics (5 sources)Venous insufficiency of leg; Translations: [Venous insufficiency (chronic) (peripheral)]71-25-0548KqlrloklForzp diseases of veins and lymphatics (1 source)Venous insufficiency (chronic) (peripheral); Translations: [Venous (peripheral) insufficiency, unspecified]50-98-1758VqedtppmLxbou ear and sense organ disorders (7 sources)Conductive hearing loss, bilateral; Translations: [Conductive hearing loss, bilateral]Onset: 82-08-6562ZvltvzxDltmt ear and sense organ disorders (14 sources)Impacted cerumen; Translations: [Impacted cerumen, bilateral]Onset: 98-52-1193EklfereyHurcn gastrointestinal disorders (20 sources)Irritable bowel syndrome characterized by constipation; Translations: [Irritable bowel syndrome with constipation]Onset: 09-07-2023 38-45-8180DjyhtnzAeoxf gastrointestinal disorders (7 sources)Irritable bowel syndrome with diarrhea; Translations: [Irritable bowel syndrome with diarrhea]Onset: 21-20-1848VtenbqbWmktk gastrointestinal disorders (15 sources)Irritable bowel syndrome; Translations: [Irritable bowel syndrome] 51-33-2158MdudawvXjidp gastrointestinal disorders (2 sources)Irritable bowel syndrome without diarrhea; Translations: [Irritable bowel syndrome]59-21-5868WteamvyDhtmp gastrointestinal disorders (1 source)Change in bowel habit; Translations: [Other symptoms involving digestive system]22-98-2662TaksuynwSeali injuries and conditions due to external causes [...] and metabolic disorders (1 source)Hypercalcemia; Translations: [HYPERCALCEMIA]Onset: 59-27-4408Uzlkwxp Other screening for suspected conditions (not mental disorders or infectious disease) (7 sources)Imaging of genitourinary system abnormal; Translations: [Nonspecific (abnormal) findings on radiological and other examination of genitourinary organs]Onset: 91-87-3319JajvtprRpxtq screening for suspected conditions (not mental disorders or infectious disease) (20 sources)Encounter for screening mammogram for malignant neoplasm of breast; Translations: [Encounter for screening for diseases of the blood and blood- forming organs and certain disorders involving the immune mechanism]Onset: 03-31-2015 Resolved: 36-15-7517LzdtlqrkHeoqz upper respiratory disease (7 sources)Vasomotor rhinitis; Translations: [Vasomotor rhinitis]ChronicOther upper respiratory disease (7 sources)Seasonal allergic rhinitis; Translations: [Other seasonal allergic rhinitis]Onset: 67-74-8732BwsmipnCeemg upper respiratory disease (19 sources)Allergic rhinitis due to pollen; Translations: [Allergic rhinitis due to pollen]16-80-2105DmgwrrsPqyzo upper respiratory disease (1 source)Chronic rhinitis; Translations: [Chronic rhinitis]31-85-3660Wduvtap Other upper respiratory infections (7 sources)Chronic sinusitis; Translations: [Chronic sinusitis, unspecified] ChronicOther upper respiratory infections (20 sources)Acute pharyngitis; Translations: [Acute pharyngitis due to other specified organisms]Onset: 43-07-0422JbesariiOdnrnkme codes; unclassified (12 sources)Insomnia; Translations: [Insomnia, unspecified]EpisodicResidual codes; unclassified (7 sources)Postmenopausal state; Translations: [Asymptomatic menopausal state] EpisodicSpondylosis; intervertebral disc disorders; other back problems (20 sources)Spondylitis; 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, lumbar region]Onset: 62-36-9639FatyebtUdzvfaqemvn injury; contusion (1 source)Insect bite (nonvenomous) of unspecified part of head, initial encounterEpisodicSyncope (10 sources)Syncope and collapse; Translations: [Syncope and collapse]Onset: 98-03-5380YzjhackyFscarfk disorders (20 sources)Cyst of thyroid; Translations: [Nontoxic single thyroid nodule] Onset: 87-87-8890UuenrgfAeaoylpzlszb (3 sources)CONTACT W/AND (SUSP) EXPOS COVID-19; Translations: [CONTACT W/AND (SUSP) EXPOS COVID-19]Onset: 57-57-5571Vgupdwpzouas (7 sources)Exposure to acute respiratory syndrome coronavirus 2; Translations: [Contact with and (suspected) exposure to COVID-19]Unclassified (3 sources)Urine bqynrts37-75-4828 Past or Other Problems Problem ClassificationProblemDateDocumented DateEpisodic/ChronicBacterial infection; unspecified site (14 sources)Methicillin resistant Staphylococcus aureus infection; Translations: [Methicillin resistant Staphylococcus aureus infection, unspecified site]Onset: 96-56-8763TgofyynlKouystiaui and other anemia (1 source)Anemia; Translations: [Anemia, unspecified]Onset: EpisodicEsophageal disorders (3 sources)Esophageal disordersGastritis and duodenitis (7 sources)Acute gastritis; Translations: [Acute gastritis without mention of hemorrhage]Onset: 99-13-2596EbjsitfhAdlalelf; including migraine (7 sources)Headache; Translations: [Headache, unspecified]Onset: 02-23-2015 EpisodicNausea and vomiting (7 sources)Nausea; Translations: [Nausea]Onset: 83-74-1256SbelagetCvkrlyehbrm chest pain (18 sources)Chest pain, unspecified; Translations: [Chest pain]Onset: 07-05-2016 EpisodicOther aftercare (1 source)Other supervisor intermediates (current) drug therapy; Translations: [OTH MANAGER STATISTICAL PROGRAMMING CURRENT DRUG THERAPY]Onset: 34-80-5716IwcxkiwtQyvta aftercare (7 sources)Surgical follow-up; Translations: [Follow-up examination, following unspecified surgery]Onset: 77-88-9795KiwqnlrzLrcbf connective tissue disease (7 sources)Muscle pain; Translations: [Unspecified myalgia and myositis]Onset: 53-25-9724YpythkhoFhzro disorders of stomach and duodenum (7 sources)Disorder of function of stomach; Translations: [Dyspepsia and other specified disorders of functionof stomach]Onset: 14-51-4204OhlkkqyqNvxcy gastrointestinal disorders (7 sources)Heartburn; Translations: [Heartburn]Onset: 05-43-4239WjgcxhuzAeghz gastrointestinal disorders (7 sources)Diarrhea; Translations: [Diarrhea]Onset: 14-02-2711XtyuzryqYtozc gastrointestinal disorders (7 sources)Pharyngeal dysphagia; Translations: [Dysphagia, pharyngoesophageal phase]Onset: 90-83-1198JdshwkqyUwfxk gastrointestinal disorders (7 sources)Flatulence, eructation and gas pain; Translations: [Abdominal distension (gaseous)]Onset: 20-76-8974BuhecmfjDkkcy lower respiratory disease (7 sources)Cough; Translations: [Cough, unspecified]Onset: 18-88-1436Sdzmwdlk Other nutritional; endocrine; and metabolic disorders (9 sources)Loss of appetite; Translations: [Anorexia]Onset: 93-68-3800Jjhbglgq Other nutritional; endocrine; and metabolic disorders (7 sources)Overweight; Translations: [Overweight]Onset: 33-95-7603ErtovsglEbxae nutritional; endocrine; and metabolic disorders (14 sources)Body mass index 25-29 - overweight; Translations: [Body mass index 27.0-27.9, adult]Onset: 29-30-9724ZrxmsyszUpbra nutritional; endocrine; and metabolic disorders (7 sources)Abnormal weight loss; Translations: [Abnormal weight loss]Onset: 01-02-8731OgdfqbknQrund skin disorders (7 sources)Inflamed seborrheic keratosis; Translations: [Inflamed seborrheic keratosis]Onset: 86-08-0814MevigkwuIxwdz skin disorders (7 sources)Sebaceous cyst; Translations: [Sebaceous cyst]Onset: 06-24-2015 EpisodicOther skin disorders (7 sources)Generalized hyperhidrosis; Translations: [Generalized hyperhidrosis] Onset: 29-80-8526TduyrvrhKhrcui media and related conditions (14 sources)Otitis media; Translations: [Unspecified otitis media]Onset: 39-65-3380YaikraxnHntorzl cyst (7 sources)Cyst of ovary; Translations: [Other and unspecified ovarian cyst] Onset: 10-14-2009 Resolved: 78-66-7050GgfoqqwuLzqruoxr codes; unclassified (1 source)Localized edema; Translations: [LOCALIZED EDEMA]Onset: 02-02-2022 EpisodicResidual codes; unclassified (7 sources)C/O - a back symptom; Translations: [Other symptoms referable to back]Onset: 77-59-3426LmbbpesmXekdcudi codes; unclassified (7 sources)Requires influenza virus vaccination; Translations: [Need for prophylactic vaccination and inoculation, Influenza]Onset: 37-01-8137Spzhbycq Residual codes; unclassified (7 sources)Flushing; Translations: [Flushing]Onset: 03-56-8931IydcsfhfClne and subcutaneous tissue infections (7 sources)Carbuncle of neck; Translations: [Carbuncle of neck] Resolved: 66-86-9950OiulhbqaLeqqjudwspu; intervertebral disc disorders; other back problems (20 sources)Sciatica; Translations: [Lumbago with sciatica, left side]Onset: 779298-48-3911WwiiafibXfnbkbx and strains (7 sources)Low back strain; Translations: [Strain of muscle, fascia and tendon of lower back, initial encounter]Onset: 41-23-0111TbihgcfdTveczhttevlh (1 source)Vaccine counseling Z71.85Unclassified (1 source)CONTACT W/AND (SUSP) EXPOS COVID-19; Translations: [CONTACT W/AND (SUSP) EXPOS COVID-19]Onset: 44-94-7181Xcncjpwwmrhp (2 sources)Acute bilateral low back pain without sciatica M54.50Unclassified (4 sources)Acute bilateral low back pain without sciatica; Translations: [Acute bilateral low back pain without sciatica]Urinary tract infections (7 sources)Acute cystitis; Translations: [Acute cystitis without hematuria] Onset: 15-85-5155RpzdqappUjqbp infection (2 sources)COVID-19 Results Test NameValueInterpretationReference RangeFacilityAmbulatory Visit Summaryon 04-56-0393Ibzqsgkdox Visit SummaryAmbulatory Visit Summary ZARIA CORONA :1955 [...] Enrique VÁSQUEZ MD Where: [facility] [address] [place] [address]- You Need to Schedule the Following Appointments Follow Up with Enrique VÁSQUEZ MD, URL When: Where: [facility] [address], [place] [address]- Medications What How Much When Instructions Unchanged [...] ? 8 oz (237 mL) of milk, kbfnavu-dshqqatfjnxc-agfxp milk, and calcium- fortifiedfruit juice. Calcium-fortified means [...] g) can of sa (more content not included)...[facility]Amb[facility] SummaryAmbulatory Visit Summary ZARIA CORONA :1955 [...] [facility] [address], [place] [address]- Medications What How Much When Instructions Unchanged [...] ? 8 oz (237 mL) of milk, gaeojla-ibvpcvvyowrk-wgluo milk, and calcium- fortifiedfruit juice. 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 U 24hr Ca 340 H. Citric acid 335 L. Taking Effer-K 25 mEq bid. Cont wo changes. Follow-up With When Contact Information MARCY GRESHAM, Enrique Layne, URL [facility] [address], [place] [address]- Additional Instructions: 1 yr with KUB and [...] acel/tetanus adult 04 (more content not included)...Normal [facility] CenterComment on above:Result Comment: Electronically Signed By: Enrique VÁSQUEZ MD\.br\Date and Time Signed: 03/03/25 12:14 EDT\.br\Electronically Co-Signed By: Selma Allen\.br\Date and Time Co- Signed: 03/03/25 12:09 EDTInfluenza virus B Ag [Presence] in Upper respiratory specimen by Rapid immunoassayon 41-00-7905BXBKZ Ag IA.rapid Ql (Nph)Influenza virus B Ag [Presence] in Upper respiratory specimen by Rapid immunoassay [facility] HospitalNo Panel Informationon 65-63-7723Udhxrwdst Type A (Rapid)NegativeChillicothe HospitalPOC SARS CoV-2 Antigen NegativeChillicothe HospitalBasophils Auto (Bld) [#/Vol]on 43-94-4382Xudtthlbb (Bld) [#/Vol]Automated basophil count0.0-0.1FBlanchard Valley Health System Bluffton HospitalBasophils/100 WBC Auto (Bld)on 57-90-3502Ztibkkehm/100 WBC (Bld)Automated basophil %0.2-2.0[facility] Eosinophils/100 WBC Auto (Bld)on 79-67-9975Jetfqmmsdic/100 WBC (Bld)Automated eosinophil %0.9-7.0[facility] HospitalErythrocyte distribution width Auto (RBC) [Ratio]on 77-08-2178Urmhphqmick distribution width (RBC) [Ratio]Erythrocyte distribution width [Ratio] by Automated count11.0-15.0 [facility] HospitalEstimated glomerular filtration rate (GFR) non- Americanon 01-14-0709OQB/1.73 sq M.predicted among non-blacks MDRD (S/P/Bld) [Vol rate/Area]Estimated glomerular filtration rate (GFR) non->=60 mL/min/1.73m 2FBlanchard Valley Health System Bluffton HospitalGlobulin Calc (S) [Mass/Vol]on 35-28-8361Ydbsqmgk (S) [Mass/Vol]Serum globulin measurement by calculation (mass/volume)[facility] HospitalHematocrit Auto (Bld) [Volume fraction]on 27-04-6623Oioebinysh (Bld) [Volume fraction]Hematocrit [Volume Fraction] of Blood by Automated count36.0-48.0[facility] HospitalHemoglobin [Mass/volume] in Bloodon 49-14-7351Lryruizbnb (Bld) [Mass/Vol] Hemoglobin [Mass/volume] in Blood12.0-16.0[facility] - Chemistry and Chemistry - challengeon 42-27-5113Ruobbjy [Mass/Vol] 3.5 g/dL3.4-5.0[facility] HospitalALP [Catalytic activity/Vol]167 U/KVldw46-537DhfsyfwjdChillicothe HospitalALT [Catalytic activity/Vol]43 U/L 14-59[facility] HospitalAmylase [Catalytic activity/Vol]44 U/L 25-115[facility] HospitalAST [Catalytic activity/Vol]29 U/L15-37 [facility] HospitalBilirubin [Mass/Vol]0.4 mg/dL0.2-1.0[facility] HospitalCalcium [Mass/Vol]9.2 mg/dL8.5-10.1FBlanchard Valley Health System Bluffton HospitalChloride [Moles/Vol]102 mmol/A75-908SnecejtsoChillicothe HospitalCO2 [Moles/Vol]27.8 mmol/L21.0-32.0[facility] Creatinine [Mass/Vol]0.84 mg/dL0.55-1.02[facility] GFR/1.73 sq M.predicted MDRD (S/P/Bld) [Vol rate/Area]mL/min/{1.73_m2}>=60 mL/min/1.73m 2FBlanchard Valley Health System Bluffton HospitalGlucose [Mass/Vol]100 mg/yK11-129 [facility] HospitalPotassium [Moles/Vol]3.5 mmol/L3.5-5.1FBlanchard Valley Health System Bluffton HospitalProtein [Mass/Vol]7.7 g/dL6.4-8.2FKindred Hospital Daytonodium [Moles/Vol]139 mmol/V008-790JjzttmvehChillicothe HospitalUrea nitrogen [Mass/Vol]14.0 mg/dL7.0-18.0[facility] HospitalUrea nitrogen/Creatinine [Mass ratio]16.7 mg/mgChillicothe HospitalLaboratory - Hematology and Cell countson 15-32-2614Jfyfeoez granulocytes/100 WBC (Bld)0.3 %0.0-0.5FBlanchard Valley Health System Bluffton Hospital Leukocytes [#/volume] corrected for nucleated erythrocytes in Blood by Automated counon 23-98-9914NMQ corrected for nucl RBC Auto (Bld) [#/Vol]Leukocytes [#/volume] corrected for nucleated erythrocytes in Blood by Automated coun 4.0-11.0[facility] HospitalLymphocytes Auto (Bld) [#/Vol]on 40-37-9843Ljplzhzzjns (Bld) [#/Vol]Lymphocytes [#/volume] in Blood by Automated count1.2-3.8[facility] HospitalLymphocytes/100 WBC Auto (Bld)on 23-02-3213Wrrwqjpejsk/100 WBC (Bld)Lymphocytes/100 leukocytes in Blood by Automated count20.5-60.0[facility] HospitalH Auto (RBC) [Entitic mass]on 45-34-6412PMO (RBC) [Entitic mass]MCH [Entitic mass] by Automated count 26.7-34.0[facility] HospitalMCHC Auto (RBC) [Mass/Vol]on 70-53-7483QTFO (RBC) [Mass/Vol]MCHC [Mass/volume] by Automated count29.9-35.2 [facility] HospitalMCV Auto (RBC) [Entitic vol]on 20-52-2154HVA (RBC) [Entitic vol]MCV [Entitic volume] by Automated count81.0-99.0[facility] HospitalMonocytes Auto (Bld) [#/Vol]on 97-62-8926Lszjroivx (Bld) [#/Vol]Automated blood monocyte count0.3-0.8[facility] Monocytes/100 WBC Auto (Bld)on 37-13-6573Xwxcsojjk/100 WBC (Bld)Automated monocyte %1.7-12.0[facility] HospitalNeutrophils Auto (Bld) [#/Vol]on 96-69-8475Lostvbidyox (Bld) [#/Vol]Neutrophils [#/volume] in Blood by Automated countHigh1.4-6.5FBlanchard Valley Health System Bluffton HospitalNeutrophils/100 WBC Auto (Bld)on 35-60-0938Kjhhndbuevr/100 WBC (Bld)Automated neutrophil %43.0-75.0 [facility] HospitalNo Panel Informationon 54-73-3291Nxpbgwjtqrv # (Auto)0.2 10 3/uL0.0-0.7FBlanchard Valley Health System Bluffton HospitalImmature Granulocyte # (Auto)0.03 10 3/uL0.00-0.03[facility] HospitalPlatelet mean volume Auto (Bld) [Entitic vol]on 22-19-2356Lttmvcgp mean volume (Bld) [Entitic vol] Platelet mean volume [Entitic volume] in Blood by Automated countLow9.5-13.5 [facility] HospitalPlatelets Auto (Bld) [#/Vol]on 09-24-2024 Platelets (Bld) [#/Vol]Platelets [#/volume] in Blood by Automated -286 [facility] HospitalRBC Auto (Bld) [#/Vol]on 87-53-4258SZP (Bld) [#/Vol]Erythrocytes [#/volume] in Blood by Automated count4.20-5.40[facility] Washington Townshiperum or plasma albumin/globulin mass ratioon 09-24-2024 Albumin/Globulin [Mass ratio]Serum or plasma albumin/globulin mass ratio [facility] Townshiperum or plasma anion gap determinationon 15-68-4265Modcv gap [Moles/Vol]Serum or plasma anion gap determinationChillicothe HospitalBasophils Auto (Bld) [#/Vol]on 70-08-9082Uejgklbsu (Bld) [#/Vol]0.1 10 3/uL0.0-0.1FBlanchard Valley Health System Bluffton HospitalBasophils/100 WBC Auto (Bld)on 44-51-7532Mwumgvvmj/100 WBC (Bld)0.5 %0.2-2.0[facility] HospitalEosinophils/100 WBC Auto (Bld)on 85-05-0361Fufhyqjtnpq/100 WBC (Bld)3.0 % 0.9-7.0[facility] HospitalErythrocyte distribution width Auto (RBC) [Ratio]on 43-78-6269Ykqcsquzsls distribution width (RBC) [Ratio]15.0 % 11.0-15.0[facility] HospitalGlucose mean value [Mass/volume] in Blood Estimated from glycated hemoglobinon 15-87-9428Plbcymi glucose Estimated from glycated hemoglobin (Bld) [Mass/Vol]117 mg/dLChillicothe HospitalHematocrit Auto (Bld) [Volume fraction]on 30-65-2056Rhurrhdjld (Bld) [Volume fraction]41.1 %36.0-48.0[facility] HospitalHemoglobin [Mass/volume] in Bloodon 33-56-3657Mohvfpezjf (Bld) [Mass/Vol]13.2 g/dL12.0-16.0 [facility] HospitalLon 68-49-7839NTnecydhk: [id number] Received: 05/06/24 Status: MARY Req Num: [id number] Spec Type: Impression Subm Dr: Segun Kingsley DO Tissues: PATHPER Procedures: PATHREVIEW Age/ Patient Sex Location Account Attending Physician Zaria Corona 68/F LABELL [id number] Segun Kingsley DO SPEC NUM: [id number] RECD: 05/06/24 STATUS: MARY ELIO NUM: [id number] KYRIE: 05/06/[address]: Segun Kingsley DO ENTERED: 05/06/[address]: Marj,Lab SPEC TYPE: Impression DEPT: GARRETT Myles ENTERED BY: [id number] RECV BY: [id number] ORDERED: PATHREVIEW ORDERED: PATHREVIEW Pathologist Review Abnormal [...] inflammation, or underlying infection requiring clinical correlations [facility]:[id number] Specimen: [id number] Received: 05/06/24-1320 Status: MARY Rodgers Num: [id number] Spec Type: Impression Subm Dr: Segun Kingsley DO Tissues: PATHPER Procedures: PATHREVIEW Patient: Zaria Corona [id number] (Continued) Signed (signature on file) Qasim Feng MD 05/07/[address] [place] [address] Physician GroupLaboratory - Hematology and Cell countson 70-04-3992TsX9l (Bld) [Mass fraction]5.7 %4.5-6.2FBlanchard Valley Health System Bluffton HospitalComment on above:ADA RECOMMENDED LIMIT 4.0 - 6.0ADA THERAPEUTIC TARGET < 7.0ACTION SUGGESTED> 7.0Immature granulocytes/100 WBC (Bld)0.7 %High0.0-0.5 [facility] HospitalLeukocytes [#/volume] corrected for nucleated erythrocytes in Blood by Automated counon 18-67-0061WHR corrected for nucl RBC Auto (Bld) [#/Vol]13.2 10 3/uLHigh4.0-11.0[facility] Lymphocytes Auto (Bld) [#/Vol]on 04-09-0898Xoxxnlwdmfi (Bld) [#/Vol]2.7 10 3/uL 1.2-3.8[facility] HospitalLymphocytes/100 WBC Auto (Bld)on 26-30-1026Fzewbjtfxej/100 WBC (Bld)20.6 %20.5-60.0[facility] HospitalH Auto (RBC) [Entitic mass]on 90-69-8713WFS (RBC) [Entitic mass]27.9 pg 26.7-34.0[facility] HospitalHC Auto (RBC) [Mass/Vol]on 77-09-5104GYWI (RBC) [Mass/Vol]32.1 g/dL29.9-35.2FMercy Health Lorain HospitalV Auto (RBC) [Entitic vol]on 31-65-9965QWW (RBC) [Entitic vol]86.9 fL 81.0-99.0[facility] HospitalMonocytes Auto (Bld) [#/Vol]on 27-43-8722Tumeidpud (Bld) [#/Vol]0.7 10 3/uL0.3-0.8[facility] HospitalMonocytes/100 WBC Auto (Bld)on 46-73-2404Vznxkeuoe/100 WBC (Bld)5.0 % 1.7-12.0[facility] HospitalNeutrophils Auto (Bld) [#/Vol]on 56-96-8762Izkgapbycoz (Bld) [#/Vol]9.3 10 3/uLHigh1.4-6.5FBlanchard Valley Health System Bluffton HospitalNeutrophils/100 WBC Auto (Bld)on 61-88-3181Xsohibqayds/100 WBC (Bld)70.2 %43.0-75.0[facility] HospitalNo Panel Informationon 07-34-7036Xpq Manual DifferentialSee commentChillicothe Hospital Comment on above:SEE SCANNED REPORTEosinophils # (Auto)0.4 10 3/uL0.0-0.7 [facility] HospitalImmature Granulocyte # (Auto)0.09 10 3/uLHigh 0.00-0.03[facility] HospitalPlatelet mean volume Auto (Bld) [Entitic vol]on 79-59-5925Pfbosfkg mean volume (Bld) [Entitic vol]8.5 fLLow 9.5-13.5FBlanchard Valley Health System Bluffton HospitalPlatelets Auto (Bld) [#/Vol]on 58-82-1158Njfunpmwu (Bld) [#/Vol]419 10 3/jD958-314MxfhcavbzChillicothe HospitalRBC Auto (Bld) [#/Vol]on 94-72-5823JPG (Bld) [#/Vol]4.73 10 6/uL4.20-5.40 [facility] HospitalBasophils Auto (Bld) [#/Vol]on 05-01-2024 Basophils (Bld) [#/Vol]0.1 10 3/uL0.0-0.1FBlanchard Valley Health System [facility] Basophils/100 WBC Auto (Bld)on 02-18-6670Lvgihalvc/100 WBC (Bld)0.3 %0.2-2.0 [facility] HospitalCholesterol in LDL Calc [Mass/Vol]on 05-01-2024 Cholesterol in LDL [Mass/Vol]56.0 mg/dLChillicothe HospitalComment on above:<100 mg/dl DWRIVRP291-383 mg/dl NEAR OR ABOVE QFXJLNM818-613 mg/dl BORDERLINE BWLN106-696 mg/dl HIGH>190 mg/dl VERY HIGHCholesterol in VLDL Calc [Mass/Vol]on 05-88-2162Rvewwszbgpv in VLDL [Mass/Vol]21.0 mg/dLChillicothe HospitalEosinophils/100 WBC Auto (Bld)on 05-01-2024 Eosinophils/100 WBC (Bld)0.6 %Low0.9-7.0[facility] Erythrocyte distribution width Auto (RBC) [Ratio]on 22-45-5769Vcqjgiwslui distribution width (RBC) [Ratio]15.3 %High11.0-15.0[facility] HospitalEstimated glomerular filtration rate (GFR) non- Americanon 69-69-2432RBC/1.73 sq M.predicted among non-blacks MDRD (S/P/Bld) [Vol rate/Area]mL/min/{1.73_m2}>=60[facility] HospitalGlobulin Calc (S) [Mass/Vol]on 51-94-4423Mpoewpbm (S) [Mass/Vol]4.7 g/dLChillicothe HospitalHematocrit Auto (Bld) [Volume fraction]on 91-74-4440Dsnouonznw (Bld) [Volume fraction]40.0 %36.0-48.0[facility] HospitalHemoglobin [Mass/volume] in Bloodon 52-22-5509Hceokronnv (Bld) [Mass/Vol]12.9 g/dL12.0-16.0 [facility] HospitalLaboratory - Chemistry and Chemistry - challengeon 22-19-9023Gxveogx [Mass/Vol]3.3 g/dLLow3.4-5.0[facility] HospitalALP [Catalytic activity/Vol]157 U/LUnlo34-018McoswstqqChillicothe HospitalALT [Catalytic activity/Vol]22 U/C41-38FfonuapllChillicothe HospitalAST [Catalytic activity/Vol]17 U/J04-64OrisibbrgChillicothe Hospital Bilirubin [Mass/Vol]0.6 mg/dL0.2-1.0[facility] HospitalCalcium [Mass/Vol]9.1 mg/dL8.5-10.1FBlanchard Valley Health System Bluffton HospitalChloride [Moles/Vol] 99 mmol/I64-630HxmfeinxuChillicothe HospitalCholesterol [Mass/Vol]155 mg/dL <=200Ch[facility] HospitalCholesterol in HDL [Mass/Vol]78 mg/dLHigh 40-60[facility] HospitalComment on above:> or =60 mg/dl - LOW CARDIOVASCULAR RISK<40 mg/dl - HIGH CARDIOVASCULAR RISKCO2 [Moles/Vol]27.0 mmol/L21.0-32.0[facility] HospitalCreatinine [Mass/Vol]0.70 mg/dL 0.55-1.02[facility] HospitalGFR/1.73 sq M.predicted MDRD (S/P/Bld) [Vol rate/Area]mL/min/{1.73_m2}>=60[facility] HospitalGlucose [Mass/Vol]124 mg/bJFgkc42-546WloyyreexChillicothe HospitalPotassium [Moles/Vol]3.3 mmol/LLow3.5-5.1FBlanchard Valley Health System Bluff[facility] HospitalProtein [Mass/Vol]8.0 g/dL6.4-8.2FKindred Hospital Daytonodium [Moles/Vol]136 mmol/F389-281LlrirgjidChillicothe HospitalTriglyceride [Mass/Vol]105 mg/dL <=150[facility] HospitalUrea nitrogen [Mass/Vol]15.0 mg/dL7.0-18.0 [facility] HospitalUrea nitrogen/Creatinine [Mass ratio]21.4 mg/mg [facility] HospitalLaboratory - Hematology and Cell countson 39-05-5578Roncdsuh granulocytes/100 WBC (Bld)0.5 %0.0-0.5FBlanchard Valley Health System Bluffton HospitalLeukocytes [#/volume] corrected for nucleated erythrocytes in Blood by Automated counon 11-58-8152OGV corrected for nucl RBC Auto (Bld) [#/Vol]19.0 10 3/uLHigh4.0-11.0[facility] HospitalLymphocytes Auto (Bld) [#/Vol]on 19-23-6251Ddyiwfqaerf (Bld) [#/Vol]2.0 10 3/uL1.2-3.8[facility] HospitalLymphocytes/100 WBC Auto (Bld)on 05-01-2024 Lymphocytes/100 WBC (Bld)10.3 %Low20.5-60.0[facility] HospitalMCH Auto (RBC) [Entitic mass]on 77-37-3663ZNB (RBC) [Entitic mass]27.6 pg26.7-34.0 [facility] HospitalMCHC Auto (RBC) [Mass/Vol]on 95-23-9105OYBT (RBC) [Mass/Vol]32.3 g/dL29.9-35.2FBlanchard Valley Health System Bluffton HospitalMCV Auto (RBC) [Entitic vol]on 10-40-0739BUU (RBC) [Entitic vol]85.7 fL81.0-99.0[facility] HospitalMonocytes Auto (Bld) [#/Vol]on 69-68-2486Ywifneeiq (Bld) [#/Vol]1.2 10 3/uLHigh0.3-0.8[facility] HospitalMonocytes/100 WBC Auto (Bld)on 26-44-4567Jkmoyeihz/100 WBC (Bld)6.2 %1.7-12.0[facility] HospitalNeutrophils Auto (Bld) [#/Vol]on 50-26-2593Dzhouqfwmsj (Bld) [#/Vol]15.6 10 3/uLHigh1.4-6.5FBlanchard Valley Health System Bluffton HospitalNeutrophils/100 WBC Auto (Bld)on 91-85-3478Fnzaackkcht/100 WBC (Bld)82.1 %High43.0-75.0[facility] HospitalNo Panel Informationon 60-81-7842Swohpincuwl # (Auto)0.1 10 3/uL0.0-0.7FBlanchard Valley Health System Bluffton HospitalImmature Granulocyte # (Auto) 0.09 10 3/uLHigh0.00-0.03[facility] HospitalPlatelet mean volume Auto (Bld) [Entitic vol]on 12-46-9294Hnrvszzh mean volume (Bld) [Entitic vol]9.1 fLLow9.5-13.5FBlanchard Valley Health System Bluffton HospitalPlatelets Auto (Bld) [#/Vol]on 41-66-1778Rwbhwmvmh (Bld) [#/Vol]346 10 3/hE384-119AxxpgncxxChillicothe HospitalRBC Auto (Bld) [#/Vol]on 82-28-4537UJS (Bld) [#/Vol]4.67 10 6/uL4.20-5.40 [facility] Townshiperum or plasma albumin/globulin mass ratioon 16-18-4609Ksnkbjd/Globulin [Mass ratio]0.7 {ratio}[facility] Townshiperum or plasma anion gap determinationon 80-19-8594Jcrdb gap [Moles/Vol] 13.3 mmol/LFKindred Hospital Daytonerum or plasma total cholesterol/high density lipoprotein (HDL) cholesterol mass franklin 05-01-2024 Cholesterol.total/Cholesterol in HDL [Mass ratio]2.0 {ratio}[facility] HospitalComment on above:3.3 - 4.4 LOW RISK4.4 - 7.1 AVERAGE RISK7.1 - 11.0 MODERATE RISK>11.0 HIGH RISKLaboratory - Chemistry and Chemistry - challengeon 25-15-0051Qyemdbah [Moles/Vol]102 mmol/J40-974TnkfxjgthChillicothe HospitalCO2 [Moles/Vol]28.0 mmol/L21.0-32.0[facility] HospitalPotassium [Moles/Vol]4.0 mmol/L3.5-5.1FBlanchard Valley Health System [facility]uff[facility] Hospital Sodium [Moles/Vol]138 mmol/N605-515ZhvihghgsKettering Health Washington Townshiperum or plasma anion gap determinationon 21-86-5496Bdztb gap [Moles/Vol]12.0 mmol/L [facility] HospitalUS Thyroid glandon 45-90-6782[place] [address] Ultrasound Report Signed Patient: ELBA CORONA MR#: [id number] : 1955 Acct:[id number] Age/Sex: 68 / F ADM Date: 09/05/23 Loc: US Attending Dr: Anum Dumont M.D. Ordering Physician: Anum Dumont M.D. Date of Service: 09/05/23 Procedure(s): US thyroid Accession Number(s): [id number] cc: Segun Kingsley D.O.; Anum Dumont M.D. [address] [address] Patient Name: ELBA CORONA MRN: [id number] date: 1955 Sex: F Assigned Patient Location: US Current Patient Location: US Accession/Order Number: [id number] Exam Date: 09/05/2023 12:15 Report Date: 09/05/2023 [...] Signed By: 09/05/23 1341 DD/ 1338 TD/TT: Auto Radio Mechanic:IAMHRadiology, Radiologist, - 09/05/[address] [address] Ultrasound Report Signed Patient: ELBA CORONA MR#: [id number] : 1955 Acct:[id number] Age/Sex: 68 / F ADM Date: 09/05/23 Loc: US Attending Dr: Anum Dumont M.D. Ordering Physician: Anum Dumont M.D. Date of Service: 09/05/23 Procedure(s): US thyroid Accession Number(s): [id number] cc: Segun Kingsley D.O.; Anum Dumont M.D. The [address] [address] Patient Name: ELBA CORONA MRN: [id number] date: 1955 Sex: F Assigned Patient Location: US Current Patient Location: US Accession/Order Number: [id number] Exam Date: 09/05/2023 12:15 Report Date: 09/05/2023 [...] Signed By: 09/05/23 1341 DD/ 1338 TD/TT: Auto Radio Mechanic: MELANI MensahRadiology Study observation (narrative)MELANI Hidalgo Thyroid glandOrdered By: Radiologist Radiology on 63-72-7083[facility] Work Phone: XR KUB 1 VIEWon 49-56-3659JE KUB 1 VIEWEXAMINATION: XR KUB 1 VIEW HISTORY: Kidney stone COMPARISON: No relevant comparison available. FINDINGS: KIDNEY/URETER - RIGHT: punctate nephrolithiasis. KIDNEY/URETER - LEFT: punctate nephrolithiasis PELVIS: No visible ureteral calcifications. Any visible calcifications favor phleboliths. BOWEL: No abnormal dilation or deviation. BONES: No acute abnormality. OTHER: Negative. No abnormal gaseous collections. IMPRESSION: Bilateral punctate nephrolithiasis Electronically authenticated by: EVERETT ERNANDEZ Date: 2023-01-20 11:11[facility] HospitalELECTROLYTESon 55-13-8683Wafwm gap [Moles/Vol]12.4 mmol/LNormal The [facility] HospitalComment on above:Performed By: #### PTHINT #### [facility] [address] [place] [address] Dr. Alejandrina FengChloride [Moles/Vol]102 mmol/ZActjzg47-622IzqBucyrus Community Hospital Comment on above:Performed By: #### PTHINT #### [facility] [address] [place] [address] Dr. Alejandrina FengCO2 [Moles/Vol]28.5 mmol/AHwulwz67.0-32.0[facility] Comment on above:Performed By: #### PTHINT #### [facility] [address] [place] [address] Dr. Alejandrina FengPotassium [Moles/Vol]3.9 mmol/LNormal3.5-5.1[facility] Comment on above:Performed By: #### PTHINT #### [facility] [address] [place] [address] Dr. Alejadnrina FengSodium [Moles/Vol]139 mmol/LWbnbcd533-757VlhBucyrus Community Hospital Comment on above:Performed By: #### PTHINT #### [facility] [address] [place] [address] Dr. Alejandrina Christopher THYROIDon 16-64-0330AW THYROIDEXAMINATION: US THYROID HISTORY: Non-toxic uninodular goiter [...] thyroid stable. TR 3 nodule TI-RADS: The [employer] TI-RADS committee's white paper recommendations for thyroid lesions classified as TR3 (mildly suspicious) are listed below: > 1.5 cm. Follow-up ultrasound in 1, 3, and 5 years. > 2.5 cm. FNA. J. Am Kyrie Radiol 2017;14:587-595. Electronically authenticated by: EVERETT ERNANDEZ Date: 2022-08-29 07:[facility] HospitalXR KUB 1 VIEWon 87-76-9364JQ KUB 1 VIEWEXAMINATION: XR KUB 1 VIEW [...] Electronically authenticated by: JACKSON MEJIA Date: 2022-07-14 06:26[facility] HospitalELECTROLYTESon 35-87-5655Kpnoz gap [Moles/Vol]9.0 mmol/LNormal The [facility] HospitalComment on above:Performed By: #### ELEC #### [facility] [address] [address] [address] Alejandrina FengChloride [Moles/Vol]101 mmol/CAhzcvo08-165JzgBucyrus Community Hospital Comment on above:Performed By: #### ELEC #### [facility] [address] [address] [address] Alejandrina FengCO2 [Moles/Vol]27.5 mmol/BEgbtez41.0-32.0[facility] Comment on above:Performed By: #### ELEC #### [facility] [address] [place], [place] [address] Dr. Alejandrina FengPotassium [Moles/Vol]3.5 mmol/LNormal3.5-5.1The [facility] Comment on above:Performed By: #### ELEC #### [facility] [address] [place], [place] [address] Dr. Alejandrina FengSodium [Moles/Vol]134 mmol/LCritically ijh467-128Vdm [facility] HospitalComment on above:Performed By: #### ELEC #### [facility] [address] [address] [address] Alejandrina FengMG MAMM SCREEN 3D TUSHAR CADon 06-88-9000BR MAMM SCREEN 3D TUSHAR CAD Patient: ZARIA CORONA Exam Date: 07/06/2022 : 1955 Gender:F Ordering : DR SEGUN KINGSLEY D.O. Admission #: [id number] Family : Order #: [id number] CLICK HERE TO VIEW EXAM RADIOLOGY REPORT [...] Treatments None Family Cancers None LOCATION: [facility] BREAST COMPOSITION: Heterogeneously dense,which may obscure [...] Ernandez MD on 07/06/2022 at 10:00NoMercy Health Cl[facility] AUTO DIFFon 02-93-2903HJPL #0.1 103/ulNormal0.0-0.1The [facility] HospitalComment on above:Performed By: #### CBC #### [facility] [address] [place] [address] Dr. Alejandrina FengBasophils/100 WBC (Bld)0.4 %Normal0.2-2.0The [facility] Comment on above:Performed By: #### CBC #### [facility] [address] [place] [address] Dr. Alejandrina Moise #0.1 103/ulNormal0.0-0.7The [facility] HospitalComment on above: Performed By: #### CBC #### [facility] [address] [place] [address] Dr. Alejandrina Camarilloosinophils/100 WBC (Bld)0.6 %Critically low0.9-7.0The [facility] HospitalComment on above:Performed By: #### CBC #### [facility] [address] [place] [address] Dr. Alejandrina Camarillorythrocyte distribution width (RBC) [Ratio]14.6 %Vrgiqt75.0-15.0 [facility] HospitalComment on above:Performed By: #### CBC #### [facility] [address] [place] [address] Dr. Alejandrina FengHematocrit (Bld) [Volume fraction]43.6 %Rexdpy47.0-48.0The [facility] HospitalComment on above:Performed By: #### CBC #### [facility] [address] [place] [address] Dr. Alejandrina FengHemoglobin (Bld) [Mass/Vol]14.1 g/gNEfvvvj66.0-16.0The [facility] HospitalComment on above:Performed By: #### CBC #### [facility] [address] [place] [address] Dr. Alejandrina Washburn #0.07 10e3/ulCritically high0.00-0.03[facility] Comment on above:Performed By: #### CBC #### [facility] [address] [place] [address] Dr. Alejandrina Washburn %0.6 %Critically high0.0-0.5The [facility] HospitalComment on above:Performed By: #### CBC #### [facility] [address] [place] [address] Dr. Alejandrina Moore #1.6 103/ulNormal1.2-3.8[facility] HospitalComment on above:Performed By: #### CBC #### [facility] [address] [place] [address] Dr. Alejandrina Freemanhocytes/100 WBC (Bld)12.4 %Critically low20.5-60.0The [facility] [facility] HospitalComment on above:Performed By: #### CBC #### [facility] [address] [place] [address] Dr. Alejandrina Meyer DIFF REQNONormalThe [facility] HospitalComment on above: Performed By: #### CBC #### [facility] [address] [place] [address] Dr. Alejandrina Robert (RBC) [Entitic mass]27.9 suRymsiu31.7-34.0The [facility] HospitalComment on above:Performed By: #### CBC #### [facility] [address] [place] [address] Dr. Alejandrina Lion (RBC) [Mass/Vol]32.3 g/aRUodhfd67.9-35.2The [facility] HospitalComment on above:Performed By: #### CBC #### [facility] [address] [place] [address] Dr. Alejandrina Bianchi (RBC) [Entitic vol]86.3 xSJqhvzp33.0-99.0The [facility] HospitalComment on above:Performed By: #### CBC #### [facility] [address] [place] [address] Dr. Alejandrina Reid #0.9 103/ulCritically high0.3-0.8The [facility] Comment on above:Performed By: #### CBC #### [facility] [address] [place] [address] Dr. Alejandrina Deviocytes/100 WBC (Bld)7.2 %Normal1.7-12.0The [facility] Comment on above:Performed By: #### CBC #### [facility] [address] [place] [address] Dr. Alejandrina Jones #10.0 103/ulCritically high1.4-6.5The [facility] Comment on above:Performed By: #### CBC #### [facility] [address] [place] [address] Dr. Alejandrina Slaughterutrophils/100 WBC (Bld)78.8 %Critically high43.0-75.0The [facility] HospitalComment on above:Performed By: #### CBC #### [facility] [address] [place] [address] Dr. Alejandrina Pettylet mean volume (Bld) [Entitic vol]8.8 fLCritically low 9.5-13.5The [facility] HospitalComment on above:Performed By: #### CBC #### [facility] [address] [place] [address] Dr. Alejandrina ShaneT404 103/wsHdedhn688-017Icq [facility] HospitalComment on above: Performed By: #### CBC #### [facility] [address] [place] [address] Dr. Alejandrina FengRBC5.05 106/ulNormal4.20-5.40The [facility] HospitalComment on above:Performed By: #### CBC #### [facility] [address] [place] [address] Dr. Alejandrina FengWBC12.7 103/ulCritically high4.0-11.0The [facility] HospitalComment on above:Performed By: #### CBC #### [facility] [address] [place] [address] Dr. Alejandrina Mccauley 14(COMP METB)on 07-44-1070Fdyqlii [Mass/Vol]3.6 g/dLNormal 3.4-5.0The [facility] HospitalComment on above:Performed By: #### CMP, TSH #### [facility] [address] [address] [address] Alejandrina FengAlbumin/Globulin [Mass ratio]0.8 {ratio}NormalThe [facility] HospitalComment on above:Performed By: #### CMP, TSH #### [facility] [address] [address] [address] Alejandrina MoralesP [Catalytic activity/Vol]182 U/LCritically egkv74-671Fce [facility] HospitalComment on above:Performed By: #### CMP, TSH #### [facility] [address] [address] [address] Alejandrina MoralesT [Catalytic activity/Vol]29 U/ZIsyiut20-77Lfi [facility] HospitalComment on above:Performed By: #### CMP, TSH #### [facility] [address] [place] [address] Dr. Alejandrina FengAnion gap [Moles/Vol]13.4 mmol/LNormalThe [facility] Comment on above:Performed By: #### CMP, TSH #### [facility] [address] [place] [address] Dr. Alejandrina FengAST [Catalytic activity/Vol]22 U/SVwszia05-47Hus [facility] HospitalComment on above:Performed By: #### CMP, TSH #### [facility] [address] [place] [address] Dr. Alejandrina FengBilirubin [Mass/Vol]0.5 mg/dLNormal0.2-1.0The [facility] Comment on above:Performed By: #### CMP, TSH #### [facility] [address] [place] [address] Dr. Alejandrina FengCalcium [Mass/Vol]9.3 mg/dLNormal8.5-10.1The [facility] Comment on above:Performed By: #### CMP, TSH #### [facility] [address] [place] [address] Dr. Alejandrina FengChloride [Moles/Vol]102 mmol/MOgaxzl30-068Wel [facility] Comment on above:Performed By: #### CMP, TSH #### [facility] [address] [address] [address] Alejandrina FengCO2 [Moles/Vol]26.2 mmol/FGluxrl41.0-32.0The [facility] Comment on above:Performed By: #### CMP, TSH #### [facility] [address] [address] [address] Alejandrina FengCreatinine [Mass/Vol]0.94 mg/dLNormal0.55-1.02The [facility] HospitalComment on above:Performed By: #### CMP, TSH #### [facility] [address] [address] [address] Tinoco ChangEGFR-AF CUBAN>60Normal>=60The [facility] HospitalComment on above:Performed By: #### CMP, TSH #### [facility] [address] [address] [address] Alejandrina CamarilloGFR-NON AF ZMJDVOTZ30 mL/min/1.09v8Huqhabekmy low>=60The [facility] HospitalComment on above:Performed By: #### CMP, TSH #### [facility] [address] [address] [address] Alejandrina FengGlobulin (S) [Mass/Vol]4.3 g/dLNormalThe [facility] HospitalComment on above:Performed By: #### CMP, TSH #### [facility] [address] [address] [address] Alejandrina FengGlucose [Mass/Vol]101 mg/fWCpfkwq79-873Tgz [facility] Comment on above:Performed By: #### CMP, TSH #### [facility] [address] [address] [address] Alejandrina FengPotassium [Moles/Vol]4.6 mmol/LNormal3.5-5.1The [facility] Comment on above:Performed By: #### CMP, TSH #### [facility] [address] [address] [address] Alejandrina FengProtein [Mass/Vol]7.9 g/dLNormal6.4-8.2The [facility] Comment on above:Performed By: #### CMP, TSH #### [facility] [address] [address] [address] Alejandrina FengSodium [Moles/Vol]137 mmol/HGvbqnn735-685Bpa [facility] Comment on above:Performed By: #### CMP, TSH #### [facility] [address] [place] [address] Dr. Alejandrina James nitrogen [Mass/Vol]19.0 mg/dLCritically high7.0-18.0The [facility] HospitalComment on above:Performed By: #### CMP, TSH #### [facility] [address] [place] [address] Dr. Alejandrina James nitrogen/Creatinine [Mass ratio]20.2 mg/mgNormalThe [facility] HospitalComment on above:Performed By: #### CMP, TSH #### [facility] [address] [place] [address] Dr. Alejandrina Montelongo 58-97-3973CYF2.854 uIU/mLNormal0.358-3.740The [facility] HospitalComment on above:Performed By: #### CMP, TSH #### [facility] [address] [place] [address] Dr. Alejandrina Rodríguez-19 PCR ([facility])on 00-07-5610ZAWP-CoV-2 (COVID-19) RNA JACKSON+probe Ql (Unsp spec)Not detectedNormalNOT DETECTEDThe [facility] Comment on above:Result Comment: When diagnostic [...] for this test is supported by the [place] of Health and Human Service's declaration that [...] longer be used).Performed By: #### CBC #### [facility] [address] [place] [address] Dr. Alejandrina CamarilloLECTROLYTESon 32-40-2073Ybbkd gap [Moles/Vol]14.8 mmol/LNormal The [facility] HospitalComment on above:Performed By: #### ELEC #### [facility] [address] [place] [address] Dr. Alejandrina FengChloride [Moles/Vol]103 mmol/NPdmzqs06-207Ham [facility] Comment on above:Performed By: #### ELEC #### [facility] [address] [place] [address] Dr. Alejandrina FengCO2 [Moles/Vol]25.2 mmol/QOmyoop97.0-32.0The [facility] Comment on above:Performed By: #### ELEC #### [facility] [address] [place] [address] Dr. Alejandrina FengPotassium [Moles/Vol]4.0 mmol/LNormal3.5-5.1The [facility] Comment on above:Performed By: #### ELEC #### [facility] [address] [place] [address] Dr. Alejandrina FengSodium [Moles/Vol]139 mmol/VIddzyh937-433Utu [facility] Comment on above:Performed By: #### ELEC #### [facility] [address] [place] [address] Dr. Alejandrina FengCovid-19 PCR ([facility])on 16-74-1526FDSY-CoV-2 (COVID-19) RNA JACKSON+probe Ql (Unsp spec)Not detectedNormalNOT DETECTEDThe [facility] Comment on above:Result Comment: This test is not yet approved or cleared by the [place] FDA. When there are no FDA-approved or cleared tests available, and other criteria are met, FDA can make tests available under an emergency access mechanism called an Emergency Use Authorization (EUA). The EUA for this test is supported by the [place] of Health and Human Service's (HHS's) declaration [...] consistent with SARS-CoV-2.Performed By: #### CVDTBH #### [facility] [address] [place] [address] Dr. Alejandrina Dooley 11-47-8562Cqdvuqbjgwo peptide B (Bld) [Mass/Vol]60.0 pg/mL Normal<=900.0The [facility] HospitalComment on above:Performed By: #### PTHINT #### [facility] [address] [place] [address] Dr. Alejandrina Bahena AUTO DIFFon 98-28-3666JPVR #0.1 103/ulNormal0.0-0.1[facility] HospitalComment on above:Performed By: #### CBC #### [facility] [address] [place] [address] Dr. Alejandrina FengBasophils/100 WBC (Bld)0.4 %Normal0.2-2.0[facility] Comment on above:Performed By: #### CBC #### [facility] [address] [place] [address] Dr. Alejandrina Moise #0.2 103/ulNormal0.0-0.7The [facility] HospitalComment on above: Performed By: #### CBC #### [facility] [address] [place] [address] Dr. Alejandrina Camarilloosinophils/100 WBC (Bld)1.4 %Normal0.9-7.0[facility] Comment on above:Performed By: #### CBC #### [facility] [address] [address] [address] Alejandrina Camarillorythrocyte distribution width (RBC) [Ratio]13.3 %Idnquk61.0-15.0 The TriHealthment on above:Performed By: #### CBC #### [facility] [address] [place] [address] Dr. Alejandrina FengHematocrit (Bld) [Volume fraction]45.1 %Kxkcsy10.0-48.0The [facility] HospitalComment on above:Performed By: #### CBC #### [facility] [address] [place] [address] Dr. Alejandrina FengHemoglobin (Bld) [Mass/Vol]14.4 g/aAEdnsnp98.0-16.0The [facility] HospitalComment on above:Performed By: #### CBC #### [facility] [address] [place] [address] Dr. Alejandrina Washburn #0.05 10e3/ulCritically high0.00-0.03The [facility] Comment on above:Performed By: #### CBC #### [facility] [address] [place] [address] Dr. Alejandrina Washburn %0.4 %Normal0.0-0.5The [facility]ment on above: Performed By: #### CBC #### [facility] [address] [place] [address] Dr. Alejandrina FreemanH #1.6 103/ulNormal1.2-3.8The [facility]ment on above:Performed By: #### CBC #### [facility] [address] [place] [address] Dr. Alejandrina Freemanhocytes/100 WBC (Bld)11.2 %Critically low20.5-60.0The [facility]ment on above:Performed By: #### CBC #### [facility] [address] [place] [address] Dr. Alejandrina MariaUAL DIFF REQNONormalThe [facility] HospitalComment on above: Performed By: #### CBC #### [facility] [address] [address] [address] Alejandrina Lion (RBC) [Entitic mass]28.0 suExvoxg40.7-34.0The [facility] HospitalComment on above:Performed By: #### CBC #### [facility] [address] [place] [address] Dr. Alejandrina Lion (RBC) [Mass/Vol]31.9 g/bKHqegrn06.9-35.2The [facility] HospitalComment on above:Performed By: #### CBC #### [facility] [address] [place] [address] Dr. Alejandrina Lion (RBC) [Entitic vol]87.6 yCExtjgt33.0-99.0The [facility] HospitalComment on above:Performed By: #### CBC #### [facility] [address] [place] [address] Dr. Alejandrina Reid #0.6 103/ulNormal0.3-0.8The [facility] HospitalComment on above:Performed By: #### CBC #### [facility] [address] [place] [address] Dr. Alejandrina Deviocytes/100 WBC (Bld)4.5 %Normal1.7-12.0[facility] Comment on above:Performed By: #### CBC #### [facility] [address] [place] [address] Dr. Alejandrina Jones #11.4 103/ulCritically high1.4-6.5The [facility] Comment on above:Performed By: #### CBC #### [facility] [address] [place] [address] Dr. Alejandrina Slaughterutrophils/100 WBC (Bld)82.1 %Critically high43.0-75.0The [facility] HospitalComment on above:Performed By: #### CBC #### [facility] [address] [place] [address] Dr. Alejandrina Pettylet mean volume (Bld) [Entitic vol]9.1 fLCritically low 9.5-13.5The [facility] HospitalComment on above:Performed By: #### CBC #### [facility] [address] [place] [address] Dr. Alejandrina FengPLT363 103/uwUguvfc841-185Vpa [facility] HospitalComment on above: Performed By: #### CBC #### [facility] [address] [place] [address] Dr. Alejandrina FengRBC5.15 106/ulNormal4.20-5.40The [facility] HospitalComment on above:Performed By: #### CBC #### [facility] [address] [place] [address] Dr. Alejandrina FengWBC13.9 103/ulCritically high4.0-11.0The [facility] HospitalComment on above:Performed By: #### CBC #### [facility] [address] [place] [address] Dr. Alejandrina CruzF 14(COMP METB)on 46-15-6027Qtabnyi [Mass/Vol]4.0 g/dLNormal 3.4-5.0The [facility] HospitalComment on above:Performed By: #### PTHINT #### [facility] [address] [place] [address] Dr. Alejandrina FengAlbumin/Globulin [Mass ratio]0.8 {ratio}NormalThe [facility] HospitalComment on above:Performed By: #### PTHINT #### [facility] [address] [place] [address] Dr. Alejandrina Nicole [Catalytic activity/Vol]200 U/LCritically wwma07-734Swm [facility] HospitalComment on above:Performed By: #### PTHINT #### [facility] [address] [place] [address] Dr. Alejandrina You [Catalytic activity/Vol]29 U/TItlhkp10-53Ddz [facility] HospitalComment on above:Performed By: #### PTHINT #### [facility] [address] [place] [address] Dr. Alejandrina Felix gap [Moles/Vol]12.2 mmol/LNormalThe [facility] Comment on above:Performed By: #### PTHINT #### [facility] [address] [address] [address] Alejandrina FengAST [Catalytic activity/Vol]25 U/IHkswjy18-37Bkw [facility] HospitalComment on above:Performed By: #### PTHINT #### [facility] [address] [address] [address] Alejandrina FengBilirubin [Mass/Vol]0.4 mg/dLNormal0.2-1.0The [facility] Comment on above:Performed By: #### PTHINT #### [facility] [address] [address] [address] Alejandrina FengCalcium [Mass/Vol]9.5 mg/dLNormal8.5-10.1[facility] Comment on above:Performed By: #### PTHINT #### [facility] [address] [address] [address] Alejandrina FengChloride [Moles/Vol]101 mmol/VQhvyuj48-729AbgBucyrus Community Hospital Comment on above:Performed By: #### PTHINT #### [facility] [address] [address] [address] Alejandrina FengCO2 [Moles/Vol]25.8 mmol/CViliel64.0-32.0[facility] Comment on above:Performed By: #### PTHINT #### [facility] [address] [address] [address] Alejandrina FengCreatinine [Mass/Vol]0.69 mg/dLNormal0.55-1.02[facility] HospitalComment on above:Performed By: #### PTHINT #### [facility] [address] [place] [address] Dr. Alejandrina CamarilloGFR-AF CUBAN>60Normal>=60The [facility] HospitalComment on above:Performed By: #### PTHINT #### [facility] [address] [address] [address] Alejandrina CamarilloGFR-NON AF CUBAN>60Normal>=60The [facility] HospitalComment on above:Performed By: #### PTHINT #### [facility] [address] [address] [address] Alejandrina FengGlobulin (S) [Mass/Vol]4.8 g/dLNormalThe [facility] HospitalComment on above:Performed By: #### PTHINT #### [facility] [address] [address] [address] Alejandrina FengGlucose [Mass/Vol]96 mg/nEEbbxuq50-444Xib [facility] Comment on above:Performed By: #### PTHINT #### [facility] [address] [address] [address] Alejandrina FengPotassium [Moles/Vol]4.0 mmol/LNormal3.5-5.1The [facility] Comment on above:Performed By: #### PTHINT #### [facility] [address] [address] [address] Alejandrina FengProtein [Mass/Vol]8.8 g/dLCritically high6.4-8.2The [facility] HospitalComment on above:Performed By: #### PTHINT #### [facility] [address] [address] [address] Alejandrina FengSodium [Moles/Vol]135 mmol/LCritically pdu188-681Wyz [facility] HospitalComment on above:Performed By: #### PTHINT #### [facility] [address] [address] [address] Alejandrina FengUrea nitrogen [Mass/Vol]18.0 mg/dLNormal7.0-18.0The [facility] HospitalComment on above:Performed By: #### PTHINT #### [facility] [address] [address] [address] Alejandrina FengUrea nitrogen/Creatinine [Mass ratio]26.1 mg/mgNoalThe [facility] HospitalComment on above:Performed By: #### PTHINT #### [facility] [address] [address] [address] Alejandrina Vallejo, HIGH SENSITIVITYon 38-11-3138LHBDCT9.4 pg/mLNormal 4.0-51.3The [facility] HospitalCommclaren [facility] [place] on above:Result Comment: CUT-OFF POINTS HAVE BEEN ESTABLISHED BASED ON THE FOURTH UNIVERSAL DEFINITIONS OF MYOCARDIAL INFARCTION. THE UPPER REFERENCE LIMIT (URL) OF TROPONIN, DEFINED THE 99TH PERCENTILE OF cTnI DISTRIBUTION IN A REFERENCE POPULATION, HAS BEEN CONFIRMED THE DECISION THRESHOLD FOR [place] DIAGNOSIS.Performed By: #### HSTROPN #### [facility] [address] [place] [address] Dr. Alejandrina FengHSTROP6.4 pg/mLNormal4.0-51.3The [facility] HospitalCommclaren [facility] [place] on above:Result Comment: CUT-OFF POINTS HAVE BEEN ESTABLISHED BASED ON THE FOURTH UNIVERSAL DEFINITIONS OF MYOCARDIAL INFARCTION. THE UPPER REFERENCE LIMIT (URL) OF TROPONIN, DEFINED THE 99TH PERCENTILE OF cTnI DISTRIBUTION IN A REFERENCE POPULATION, HAS BEEN CONFIRMED THE DECISION THRESHOLD FOR [place] DIAGNOSIS.Performed By: #### PTHINT #### [facility] [address] [place] [address] Dr. Alejandrina FengXR CHEST 1 Von 22-74-7648YT CHEST 1 VEXAMINATION: XR CHEST 1 V [...] Electronically authenticated by: EVERETT ERNANDEZ Date: 2022-02-22 13:20NormKettering Health Troye [facility] HospitalOSMOLALITYon 81-81-5163Goetedjnis [Osmolality]284 mosm/kgNormal 280-301The [facility] HospitalComment on above:Performed By: #### PTHINT #### [facility] [address] [place] [address] Dr. Alejandrina FengOSMOLALITY URINEon 42-60-7657Onoqbrqejg, Mvrfp135 mOsmol/kgNormal The [facility] HospitalCommclaren [facility] [place] on above:Result Comment: 24 hr : 300 - 900 Random: 50 - 1400 After 12hr fluid restriction: >850Performed By: #### OSMOU #### [facility] [address] [address] [address] Alejandrina FelixH INTACTon 76-02-9057DKG, Gwnxqe74 pg/aYLyawsc73-94Pkm [facility] HospitalComment on above:Performed By: #### PTHINT #### [facility] [address] [address] [address] Alejandrina FengPROF CHEM 8 (BAS METB)on 44-43-0646Myzfn gap [Moles/Vol]12.7 mmol/LNormalThe [facility] HospitalComment on above:Performed By: #### PTHINT #### [facility] [address] [place] [address] Dr. Alejandrina FengCalcium [Mass/Vol]8.7 mg/dLNormal8.5-10.1[facility] Comment on above:Performed By: #### PTHINT #### [facility] [address] [place] [address] Dr. Alejandrina FengChloride [Moles/Vol]100 mmol/XChucqm29-389AvbBucyrus Community Hospital Comment on above:Performed By: #### PTHINT #### [facility] [address] [place] [address] Dr. Alejandrina FengCO2 [Moles/Vol]27.7 mmol/COvwnub84.0-32.0[facility] Comment on above:Performed By: #### PTHINT #### [facility] [address] [place] [address] Dr. Alejandrina FengCreatinine [Mass/Vol]0.65 mg/dLNormal0.55-1.02The [facility] HospitalComment on above:Performed By: #### PTHINT #### [facility] [address] [place] [address] Dr. Alejandrina CamarilloGFR-AF CUBAN>60Normal>=60The [facility] HospitalComment on above:Performed By: #### PTHINT #### [facility] [address] [place] [address] Dr. Yilan ChangEGFR-NON AF CUBAN>60Normal>=60The [facility] HospitalComment on above:Performed By: #### PTHINT #### [facility] [address] [place] [address] Dr. Alejandrina FengGlucose [Mass/Vol]103 mg/iVDczfzl38-575Fml [facility] Comment on above:Performed By: #### PTHINT #### [facility] [address] [place] [address] Dr. Alejandrina FengPotassium [Moles/Vol]3.4 mmol/LCritically low3.5-5.1The [facility] HospitalComment on above:Performed By: #### PTHINT #### [facility] [address] [place] [address] Dr. Alejandrina Romerodium [Moles/Vol]137 mmol/EKxeldm556-009Ase [facility] Comment on above:Performed By: #### PTHINT #### [facility] [address] [place] [address] Dr. Alejandrina FengUrea nitrogen [Mass/Vol]15.0 mg/dLNormal7.0-18.0The [facility] HospitalComment on above:Performed By: #### PTHINT #### [facility] [address] [place] [address] Dr. Alejandrina James nitrogen/Creatinine [Mass ratio]23.1 mg/mgNormalThe [facility] HospitalComment on above:Performed By: #### PTHINT #### [facility] [address] [place] [address] Dr. Alejandrina Alba RANDOM URINEon 02-72-8740Cuaioc (U) [Moles/Vol]74 mmol/L Vojfls50-96Ybq [facility] HospitalComment on above:Performed By: #### BRIGETTE #### [facility] [address] [place] [address] Dr. Alejandrina RoblesHoyudy 71-50-1968ADG0.791 uIU/mLNormal0.358-3.740The [facility] HospitalComment on above:Performed By: #### PTHINT #### [facility] [address] [address] [address] Alejandrina FengChildren's Hospital of ColumbusComment on above: Result Comment: <0.34 UIU/ml HYPERTHYROID 0.34-5.60 UIU/ml EUTHYROID >5.60 UIU/ml HYPOTHYROIDPerformed By: #### PTHINT #### [facility] [address] [address] [address] Alejandrina Feng Vital Signs Date TimeVital SignValuePerforming SfkinpnhnOsyoqwlp81-56-4929 09:27-0400Body xczagt048.56 cmBenjamin Ball DO Work Phone: [phone]07-25-2025 09:27-0400 Body mass index (BMI) [Ratio]25.7 kg/n3Itxsqazp Ball DO Work Phone: [phone] [place], [place] [address]1707-25-2025 09:27-0400 Body aqmlkn92.09 kgBenjamin Ball DO Work Phone: [phone] [place], [place] [address]5007-25-2025 09:27-0400 Diastolic blood mm[Hg]Segun Ball DO Work Phone: [phone]07-25-2025 09:27-0400 Heart rate71 /minBenjamin Ball DO Work Phone: [phone]07-25-2025 09:27-0400 Respiratory rate12 /minBenjamin Ball DO Work Phone: [phone] [place], [place] [address]1707-25-2025 09:27-0400 Systolic blood hkaqnogq903 mm[Hg]Segun Ball DO Work Phone: [phone] [place], [place] [address]1703-10-2025 10:40-0400 [facility] .56 [facility] 10:40-0400Body mass index (BMI) [Ratio]24.6 kg/h7BcyyxktbvChillicothe Hospital03-10-2025 10:40-0400Body slkuev99.09 kgChillicothe Hospital03-10-2025 10:40-0400Diastolic blood ifcwloex86 mm[Hg][facility] 12-02-2024 10:40-0400Heart rate80 /[facility] 12-02-2024 10:40-0400Respiratory rate12 /[facility] 12-02-2024 10:40-0400Systolic blood mm[Hg][facility]12-31-2024 10:51-0500Body pvbuqe602.56 cmChillicothe Hospital12-31-2024 10:51-0500Body mass index (BMI) [Ratio]24.7 kg/r5PvstkqdolChillicothe Hospital12-31-2024 10:51-0500Body .31 kgCh[facility]icothe Hospital12-31-2024 10:51-0500Diastolic blood ukpxambn16 mm[Hg] [facility]12-31-2024 10:51-0500Heart rate74 /[facility]12-31-2024 10:51-0500Systolic blood btiyfefy571 mm[Hg] [facility]11-13-2024 09:24-0500Body cwcuox819.56 cm [facility]11-13-2024 09:24-0500Body mass index (BMI) [Ratio]24.9 kg/m8IkgzwvoawChillicothe Hospital11-13-2024 09:24-0500Body ekmcum24.94 kgChillicothe Hospital11-13-2024 09:24-0500Diastolic blood mm[Hg][facility]11-13-2024 09:24-0500 Heart rate83 /[facility]11-13-2024 09:24-0500 Respiratory rate12 /[facility]11-13-2024 09:24-0500 Systolic blood bnedhsbb480 mm[Hg][facility]11-01-2024 09:06-0400Body iwrmhb877.56 cmCh[facility]icothe Hospital11-01-2024 09:06-0400Body mass index (BMI) [Ratio]25.1 kg/o0MxmntafdhChillicothe Hospital11-01-2024 09:06-0400Body ucbjzk93.39 kgCh[facility]icothe Hospital 07-26-2024 09:06-0400Diastolic blood wlcligeu89 mm[Hg][facility]11-01-2024 09:06-0400Heart rate76 /[facility] 07-26-2024 09:06-0400Respiratory rate12 /[facility] 07-26-2024 09:06-0400Systolic blood jfkzepay520 mm[Hg][facility]07-22-2024 14:16-0400Body zzvofi798.56 cmChillicothe Hospital07-22-2024 14:16-0400Body mass index (BMI) [Ratio]25.9 kg/l5WrvopwmvtChillicothe Hospital07-22-2024 14:16-0400Body tipxor44.71 kgChillicothe Hospital07-22-2024 14:16-0400Diastolic blood mhalydiv83 mm[Hg] [facility]07-22-2024 14:16-0400Heart rate80 /[facility]07-22-2024 14:16-0400Respiratory rate12 /[facility]07-22-2024 14:16-0400Systolic blood vsuchdai546 mm[Hg] [facility]05-28-2024 14:50-0400Blood Pressure Location [employer] [facility]05-28-2024 14:50-0400Body yezmsbcsoin32.06 [degF]Kelsie OrzeoLyfe [facility]05-28-2024 14:50-0400Diastolic blood mixewxow18 mm[Hg]Kelsie Orzech [facility]05-28-2024 14:50-0400Heart rate83 /minAurora Orzech [facility]05-28-2024 14:50-0400Respiratory rate16 /minAurora Orzech [facility]05-28-2024 14:50-0400Systolic blood qfcqywwx190 mm[Hg]Kelsie Orzech [facility]05-28-2024 12:02-0400Body cymitx604.56 cmChillicothe Hospital05-28-2024 12:02-0400Body mass index (BMI) [Ratio]25.8 kg/e0XhtxlzaszChillicothe Hospital05-28-2024 12:02-0400Body .26 kgCh[facility]ic[facility] Hospital05-28-2024 12:02-0400Diastolic blood qmgaobab89 mm[Hg] [facility]05-28-2024 12:02-0400Heart rate83 /[facility]05-28-2024 12:02-0400Respiratory rate12 /[facility]05-28-2024 12:02-0400Systolic blood ezsfsqcj874 mm[Hg] [facility]04-03-2024 09:02-0400Body ftqyot971.56 cm [facility]04-03-2024 09:02-0400Body mass index (BMI) [Ratio]26.2 kg/q3PygsoaquaChillicothe Hospital04-03-2024 09:02-0400Body ktslby11.11 kgChillicothe Hospital04-03-2024 09:02-0400Diastolic blood pyhdwriw45 mm[Hg][facility]04-03-2024 09:02-0400 Heart rate76 /[facility]04-03-2024 09:02-0400 Respiratory rate12 /[facility]04-03-2024 09:02-0400 Systolic blood jyjfghxi322 mm[Hg][facility]03-26-2024 08:57-0400Body rfysah919.56 cmChillicothe Hospital03-26-2024 08:57-0400Body mass index (BMI) [Ratio]25.9 kg/l5ZvpxxjqbhChillicothe Hospital03-26-2024 08:57-0400Body oawfod16.54 kgCh[facility]ic[facility] 12-19-2023 08:57-0400Diastolic blood zelhiyjd92 mm[Hg][facility]03-26-2024 08:57-0400Heart rate98 /[facility] 12-19-2023 08:57-0400Respiratory rate12 /[facility] 12-19-2023 08:57-0400Systolic blood ghdpalkk768 mm[Hg][facility]01-15-2024 10:00-0500Body klapuw184.56 cmBenjamin Ball Other [facility]01-15-2024 10:00-0500 Body mass index (BMI) [Ratio]25.81 kg/a2Ylgsjidt Ball Other [employer] Other 01-15-2024 10:00-0500Body nvfecm80.22 kgBenjamin Ball Other [facility]01-15-2024 10:00-0500 Diastolic blood scrdaqib66 mm[Hg]Segun Ball Other [facility]01-15-2024 10:00-0500 Respiratory rate12 /minBenjamin Ball Other [employer] Other 01-15-2024 10:00-0500Systolic blood jeksyzdt940 mm[Hg] Segun Ball Other [facility]12-26-2023 13:45-0500 Body osrerp068.56 cmBenjamin Ball Other [employer] Other 12-26-2023 13:45-0500Body mass index (BMI) [Ratio] 26.02 kg/n4Kqupxlaa Ball Other [employer] Other 12-26-2023 13:45-0500Body ohpzro25.77 kgBenjamin Ball Other [employer] Other 12-26-2023 13:45-0500Diastolic blood wczvurik35 mm[Hg] Segun Ball Other [employer] Other 12-26-2023 13:45-0500Respiratory rate12 /minBenjamin Ball Other [employer] Other 12-26-2023 13:45-0500Systolic blood wwfpdbil268 mm[Hg] Segun Ball Other [employer] Other 07-17-2023 11:00-0400Body .56 cmBenjamin Ball Other [employer] Other 07-17-2023 11:00-0400Body mass index (BMI) [Ratio] 26.29 kg/i9Pzuzviqj Ball Other [employer] Other 07-17-2023 11:00-0400Body evrjvv33.49 kgBenjamin Ball Other [employer] Other 07-17-2023 11:00-0400Diastolic blood ejijdeya68 mm[Hg] Segun Ball Other [employer] Other 07-17-2023 11:00-0400Respiratory rate12 /minBenjamin Ball Other [employer] Other 07-17-2023 11:00-0400Systolic blood gjacolxf777 mm[Hg] Segun Ball Other [employer] Other 05-03-2023 12:30-0400Body gneebn493.56 cmBenjamin Ball Other [employer] Other 05-03-2023 12:30-0400Body mass index (BMI) [Ratio] 26.05 kg/a4Pgohlnko Ball Other [employer] Other 05-03-2023 12:30-0400Body kmytgx94.86 kgBenjamin Ball Other [employer] Other 05-03-2023 12:30-0400Diastolic blood enrgzttm57 mm[Hg] Segun Ball Other [employer] Other 05-03-2023 12:30-0400Respiratory rate12 /minBenjamin Ball Other [employer] Other 05-03-2023 12:30-0400Systolic blood mm[Hg] Segun Ball Other [employer] Other 03-14-2023 11:00-0400Body jcaehm985.56 cmBenjamin Ball Other [employer] Other 03-14-2023 11:00-0400Body mass index (BMI) [Ratio] 25.98 kg/f9Daagoksg Ball Other [employer] Other 03-14-2023 11:00-0400Body odzhyy38.68 kgBenjamin Ball Other [employer] Other 03-14-2023 11:00-0400Diastolic blood vlnnfahq95 mm[Hg] Segun Ball Other [facility] [employer] Other 03-14-2023 11:00-0400Respiratory rate16 /minSegun Sancho Other [facility] [employer] Other 03-14-2023 11:00-0400Systolic blood asrudxvy194 mm[Hg] Segun Kingsley Other [facility] [employer] Other 10-19-2022 13:16-0400Blood Pressure LocationJENNIFER SVITLANA [facility]10-19-2022 13:16-0400Diastolic blood jehefifp33 mm[Hg]NOE SVITLANA [facility]10-19-2022 13:16-0400Heart rate79 /minJENNIFER SVITLANA [facility]10-19-2022 13:16-0400Respiratory rate16 /minJENNIFER SVITLANA [facility]10-19-2022 13:16-0400Systolic blood foxwprja638 mm[Hg]NOE SVITLANA [facility] Encounters Encounter DateEncounter TypeCare ProviderFacilityStart: 58-45-7881gzrukphvis Enrique Layne WATERSFacility:ROSE BellevueStart: 05-29-2025 End: 19-98-3003dnrcrsqvtfLqqchthm Ball DO Work Phone: [facility] Work Phone: Start: 05-29-2025 End: 90-82-7098Lafnhox encounter procedureMago Tan MD-[facility] Medical [facility] Work Phone: Start: 04-18-2025 End: 55-25-6615vlkztxjllcYfpaubdm Ball DO Work Phone: [facility] Work Phone: Start: 04-18-2025 End: 15-75-5203Hcfjonh encounter procedureBenstacia Kingsley DO-[facility] Work Phone: Start: 04-18-2025 End: 84-50-6746Ygyzxne encounter statusBenstacia Kingsley [facility]: 03-03-2025 End: 18-88-7444mgqmxfdbqtZaveagy R WATERSFacility:EU BellevueStart: 03-03-2025 End: 53-67-5185Ugpyocu encounter procedureEnrique VÁSQUEZ [facility] Marj start: 01-30-2025 End: 48-89-8238bmamevqnviSkpqwsylaThe [facility] Work Phone: Start: 01-30-2025 End: 77-06-4952Hzzvlvp encounter procedureFirsharyns Physician Group-[facility] Work Phone: Start: 12-02-2024 End: 66-12-1829ltekfcdhoqWjmlrcfutThe [facility] Work Phone: Start: 12-02-2024 End: 81-67-8757Vehuutz encounter procedureFirelands Physician Group-[facility] Work Phone: Start: 09-24-2024 End: 94-27-5010Tastgyk encounter procedureFirelands Physician Group-[facility] Work Phone: Start: 08-07-2024 End: 98-72-4091wqzpbmgbsmJzugquabaThe [facility] Work Phone: Start: 08-07-2024 End: 25-67-6437Euslhiw encounter procedureFirelands Physician Group-[facility] Work Phone: Start: 74-37-5655Iah-patient / Non-visitFirin[facility] Work Phone: Start: 07-26-2024 End: 09-30-0010vjrdryaqzuFpcbluamhBellevue Hospital Work Phone: Start: 07-26-2024 End: 28-82-0835Ifwxkrz encounter procedureAt[facility] Work Phone: Start: 05-06-2024 End: 24-43-7841ehvyadzhovWkxoqitt SanchoFacility:[facility] Start: 03-71-9946Jlu-patient / Non-visitAt[facility] Health [facility] Work Phone: Start: 67-80-1575Hqz-patient / Non-visitAtrium Health [facility]son [facility] Work Phone: Start: 04-15-2024 End: 22-51-5831rgzavubwwzOlmszcvjkBellevue Hospital Work Phone: Start: 04-15-2024 End: 98-46-6963Hyudersmr for general adult medical examination without abnormal findingsKettering Health Washington Townshiptart: 04-15-2024 End: 11-28-0352Owtudmv encounter procedureAt[facility] Health [facility]son [facility] Work Phone: Start: 02-20-2024 End: 07-48-5201Lmy Drop offAurora X Orzech [facility] Start: 02-20-2024 End: 28-06-9735Gbocxsm encounter procedureAurora X Orzech [facility] start: 02-20-2024 End: 07-21-9526nyuswbjohxVmdhtrbnnThe [facility] Work Phone: Start: 02-20-2024 End: 95-47-7220Byselly encounter procedureAt[facility] Health [facility] Medical [facility] Work Phone: Start: 00-69-0002Vzs-patient / Non-visitAt[facility] Health [facility] Work Phone: Start: 12-27-2023 End: 98-98-7582exewsihlyjZjbaibtbaThe [facility] Work Phone: Start: 12-27-2023 End: 78-58-2089Qtwafjb encounter procedureAtrium Health [facility]son [facility] Work Phone: Start: 12-19-2023 End: 83-73-6015ozzpnnluysEnbgenetqThe [facility] Work Phone: Start: 12-19-2023 End: 62-68-1644Vyaieuw encounter procedureAtrium Health [facility]son [facility] Work Phone: Start: 20-38-3621Bpy-patient / Non-visitAtrium Health [facility] Work Phone: Start: 10-10-2023 End: 58-23-4497hdbxydvhwuFstwdlll Ball Other [employer] Other Start: 37-49-1856Kokgdonhr encounterBenstacia Kingsley [facility]: 10-09-2023 End: 62-32-6200nisamskqjuLxnknzoh Ball Other [employer] Other Start: 05-65-2911Pwgvai outpatient visit 25 minutes Segun SanchoThe [facility] ClinicStart: 10-09-2023 End: 91-15-7898Mfysokj encounter procedureAtrium Health [facility]son [facility] Medical [facility] Work Phone: Start: 09-22-2023 End: 78-40-4595hadovsykhfJsyplbzr Ball Other [employer] Other Start: 63-58-3433Cvfyyqusk encounterBenjamin BallFPG [facility] ClinicStart: 09-19-2023 End: 45-26-4473nwtsaidklpIaludokl Ball Other [employer] Other Start: 63-61-4255Zaytjp outpatient visit 15 minutes Segun BallFPG [facility] ClinicStart: 55-99-7420Kuvxucgmv encounterBenjamin BallFPG [facility] ClinicStart: 09-13-2023 End: 67-23-3045otyhaiskfeQUYYFQ H Herm[facility] [employer] Other Start: 09-05-2023 End: 42-11-1056Uihejwqhm Result EncounterAnum Dumont MD Work Phone: noms External Department UnsolicitedStart: 09-05-2023 End: 62-96-1136Afcnztctf Result EncounterHienderry Dacia Dumont MD Work Phone: [facility] External Department UnsolicitedStart: 07-19-2023 End: 62-55-5390peeiwtmdsaNshqrolk Ball Other [employer] Other Start: 66-32-9539Scphop outpatient visit 15 minutes Segun BallFPG [facility] ClinicStart: 06-20-2023 End: 74-76-7963ipeemoglzbDxkczcgk Ball Other [facility] [employer] Other Start: 29-41-9454Hhoupsffq encounterBenjamin BallFPG [facility] ClinicStart: 04-13-2023 End: 51-81-7083pyaxoiiipyNugkmshe Ball Other [employer] Other Start: 74-93-5798Jzyojbvcn encounterBenjamin BallFPG [facility] ClinicStart: 04-10-2023 End: 57-58-4081kldozmjmjeTgykkzqs Ball Other [employer] Other Start: 35-89-4254Cxjcjhqvn for general adult medical examination without abnormal findingsSegun Kingsley Medical ClinicStart: 23-92-4163Strsidch preventive med est patient 65yrs& olderSegun Kingsley Medical ClinicStart: 01-25-2023 End: 33-24-4787vwlirxsqpvEqscbkhs Ball Other [employer] Other Start: 37-10-2104Zvjyxy outpatient visit 15 minutes Segun Kingsley [facility] ClinicStart: 01-20-2023 End: 08-62-2539pxmtcebiqjHG ENRIQUE VÁSQUEZ .Facility:E8Pwkcv: 12-06-2022 End: 27-79-2784apfvlelauxPhzoocpa Ball Other [employer] Other Start: 21-36-9748Ypduin outpatient visit 25 minutes Segun Kingsley [facility] ClinicStart: 10-27-2022 End: 18-73-7234fhjouknripKA ENRIQUE VÁSQUEZ .Facility:H4Kbuow: 08-26-2022 End: 16-97-9423gpfawdiiopNW ANUM GIGISFacility:K9Iwkiw: 07-13-2022 End: 35-23-3382dmwicgxdhnVyodjh ZieberFacility:B8Tqmmv: 07-13-2022 End: 14-53-2466Xccocex encounter procedureJENNIFER E SVITLANA [facility] start: 07-06-2022 End: 20-90-2735jswntwtmwnIH SEGUN KINGSLEYFacility:B7Caywi: 06-20-2022 End: 24-39-8718iciuvaixanQR SEGUN KINGSLEYFacility:W7Ntzmk: 85-28-9930Ofvde health examinationSegun Kingsley Other [employer] Other Start: 03-11-2022 End: 56-25-8045lrznggodhsTD SEGUN BALLFacility:V8Rehki: 03-09-2022 End: 76-03-2056ceiwpsynhhHW ENRIQUE VÁSQUEZ .Facility:S5Ndekl: 03-02-2022 End: 22-67-0824vcuzkdvwnxSP SEGUN BALLFacility:D5Ypfou: 02-22-2022 End: 98-82-1378ddkueaiclgJK SEGUN BALLFacility:Z9Nlgeu: 01-31-2022 End: 36-46-8752sdymwqcjkvOU SEGUN BALLFacility:H1 Procedures DateProcedureProcedure DetailPerforming ClinicianStart: 65-44-1455Ypilqnaojpx of ixvjwp-hjhikm-opqnnamTbgpil Orzech Start: 18-58-7902Lj soft tissue head & neck real time imge Desiree Dumont MD Work Phone: Start: 23-50-0725Uxviflnobnvmit shockwave lithotripsy of calculus of kidneyJENNIFER SVITLANA Start: 73-09-6582LyvehkmejieqXPUNYGPM SVITLANA Start: 22-23-0496Rqhjagspczkcer shockwave lithotripsy of calculus of kidneyJENNIFER SVITLANA Start: 40-49-0309Vtdswrxcmlsohj shockwave lithotripsy of calculus of kidneyJENNIFER SVITLANA Start: 84-57-6335Xyrmqrvhsiksdh shockwave lithotripsy of calculus of kidneyJENNIFER SVITLANA ColonoscopyJENNIFER SVITLANA End: 65-94-0473Ceqfpfhcnckxvi screeningBenjamin Ball Other HysterectomyJENNIFER SVITLANA Screening for malignant neoplasm of breastBenjamin Ball Other Plan of Treatment DateCare ActivityDetailAuthorComprehensive metabolic 1999 panel - Serum or [facility] HospitalComprehensive metabolic 2000 panel - Serum or [facility] HospitalComprehensive metabolic 2000 panel - Serum or [facility] HospitalMG Breast - bilateral ScreeningChillicothe HospitalMG Breast - bilateral Screening [facility] HospitalPatient EducationLow back pain in adults [facility] Work Phone: xr Foot - right GE 3 ViewsAdventHealth for Women Immunizations Immunization DateImmunizationNotesCare TuvjsunaSsnudggz08-64-5197mthmumtbx virus vaccine, split virus (incl. purified surface antigen)Segun Kingsley Other [employer] Other [id number] virus vaccine, unspecified formulationChillicothe Hospital09-28-2022influenza, high dose seasonal, preservative-freeBenstacia Kingsley Other [employer] Other [id number]qm conjugate vaccine, 13 valent NOE SVITLANA [facility]12-08-2021COVID-19 Vaccine Pfizer - Documentation Purposes OnlySegun Kingsley Other [facility]12-08-2021SARS-CoV-2 (COVID-19) Ad26 vaccine, recombinantJENNIFER SVITLANA [facility]10-25-2021influenza virus vaccine, split virus (incl. purified surface antigen)Segun Kingsley Other [employer] Other [id number] virus vaccine, unspecified formulationChillic[facility] Hospital09-01-2021influenza virus vaccine, unspecified formulationJENNIFER SVITLANA [facility]04-13-2021diphtheria, tetanus toxoids and acellular pertussis vaccine, unspecified formulationBenkenrickmin Ball Other [facility]04-13-2021tetanus toxoid, reduced diphtheria toxoid, and acellular pertussis vaccine, adsorbed NOE SVITLANA [facility]04-02-2021COVID-19, mRNA, LNP-S, PF, 30 mcg/0.3 mL doseJENNIFER SVITLANA [facility] LimaComment on above:Reason for Medication: Ntnplvcxdyp95-20-0269LBCLA-38, mRNA, LNP-S, PF, 30 mcg/0.3 mL doseJENNIFER SVITLANA [facility] LimaComment on above:Reason for Medication: Wcueuhlcyjx64-65-0780mjdzkwzapsxm polysaccharide vaccine, 23 valentBenjamin Ball Other [facility]11-17-2020influenza virus vaccine, split virus (incl. purified surface antigen)Segun Kingsley Other [employer] Other [id number] virus vaccine, unspecified formulationChillic[facility] Hospital11-16-2020influenza virus vaccine, unspecified formulationJENNIFER SVITLANA [facility]ue10-31-2018influenza virus vaccine, split virus (incl. purified surface antigen)Segun Kingsley Other [employer] Other 878518-56-4342nrjuvlmtv virus vaccine, unspecified formulationJENNIFER SVITLANA [facility]01-18-2018influenza virus vaccine, split virus (incl. purified surface antigen)Segun Kingsley Other [employer] Other [id number] virus vaccine, unspecified formulationChillicothe Hospital Payers DatePayer CategoryPayerPolicy [id number]-pay2024Medicare [id number] Health Insurance [id number] 2.16.840.1.390086.3.579.2.593 [id number] 2.16.840.1.978645.3.57[id number] 2.16.840.1.804882.3.57[id number] 2.16.840.1.388699.3.57[id number] 2.16.840.1.059620.3.57[id number] 2.16.840.1.876026.3.57[id number] 2.16.840.1.194633.3.57[id number] [id number] [id number] 2.16.840.1.308163.[id number] 2.16.840.1.30398[id number] 2.16.840.1.081810.[id number] 2.16.840.1.821834.3.[id number] 2.16.8[id number] 2.16.840.1.428194.3.579.2.531 Social History DateTypeDetailFacilityStart: 07-13-2022 End: 89-75-5658Ivgsraj smoking statusNever smoked tobacco (finding)[facility]: 97-52-9491Rexyfjy smoking statusNeverExecutive Urology of [facility] Hospitaltart: 18-08-3912Wfk [facility] At [facility]: 70-60-4955Mvy [facility] At [facility] 11-27-2020 End: 23-75-3640YppGacpcf (finding)[facility] Townshipexual OrientationExec[facility] Tobacco smoking status NHISTobacco smoking consumption unknownNOMI HealthcareStart: 23-20-5850Xqtzqlz of Social functionNOMI Healthcare Start: 27-39-0972Uft assigned at birthNot on [facility] Functional Status BpmyQhtamfkrivInoqapIgluxyfp91-09-8220Zgmimzhuas StatusN/AExec[facility] of [facility]10-19-2022Functional StatusN/AExec[facility] Clinical Notes 07-13-2022 to 04-18-2025 Note Date & DjrnTudbQhqhjdig68-02-0740 Evaluation note* Diagnosis Onset Date Resolution Status Admit Date Elevated cholesterol acuteJuly 2024 9:17amEssential (primary) hypertensionacuteJuly 2024 9:17amGastroesophageal reflux 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acute April 18, 2025 9:17amIFG (impaired fasting glucose)acuteJuly 2024 9:17am Lumbar spondylosisacuteJu2024 9:17amPrimary insomniaacuteJu2024 9:17amRecurrent major depressive disorder, in full remissionacuteApril 18, 2025 9:17amScreening mammogram for breast cancernoneactiveApril 18, 2025 9:17amWellness examinationnoneactiveJuly 2024 9:17am [facility] Work Phone: 1(640) 587-750206-09-2025 Hospital Discharge instructions Patient Education 03/03/2025 12:04:21 [...] include: ?8 oz (237 mL) of milk, jmubnsm-yqzmsnkkfdmo-nnbbe milk, and calcium- fortifiedfruit juice. Calcium-fortified means [...] ?Spinach (cooked), rhubarb, beets, sweet potatoes, and Ivorian chard. ?Peanuts. ?Potato chips, slovenian fries, and baked potatoes with skin on. ?Nuts and nut products. ?Chocolate. If you regularly take a diuretic medicine, make sure to eat at least 1 or 2 servings of fruits or vegetables that are high in potassium each day. These include: ?Avocado. ?Banana. ?[place], prune, carrot, or tomato juice. ?Baked potato. [...] magnesium, fish oil, or vitamin B6. Take lqak-duz-vfahuvl and prescription medicines only as told by [...] Casseroles. Pizza. Lasagna. Frozen meals. Potato chips. Bengali fries. The items listed above may not [...] provider. Document Revised: 12/22/2022 Document Reviewed: 12/22/2022 [employer] Patient Education 2023 Simplify. Follow Up Care 02/20/2024 15:25:41 With:MARCY GRESHAM, Enrique Layne, URL Address: [facility] [address] , [place] [address]- When: Unknown [facility] 06-09-2025 NotePatient Education Nephrology Dietary [...] ? 8 oz (237 mL) of milk, menhycd-kmjuxiebdgbn-ablis milk, and calcium- fortifiedfruit juice. Calcium-fortified means [...] Spinach (cooked), rhubarb, beets, sweet potatoes, and Ivorian chard. ? Peanuts. ? Potato chips, slovenian fries, and baked potatoes with skin on. ? Nuts and nut products. ? Chocolate. ??? If you regularly take a diuretic medicine, make sure to eat at least 1 or 2 servings of fruits or vegetables that are high in potassium each day. These include: ? Avocado. ? Banana. ? [place], prune, carrot, or tomato juice. ? Baked [...] fish oil, or vitamin B6. ??? Take mlvi-lzc-tqiiwin and prescription medicines only as told by your health (more content not included)...[facility]03-10-2025 Evaluation note* Diagnosis Onset Date Resolution Status Admit Date Elevated cholesterol acuteMarch 2024 10:28amEssential (primary) hypertensionacuteMarch 2024 10:28amGastroesophageal reflux 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 acuteMarch 2024 10:28amLumbar spondylosisacuteMarch 2024 10:28am Primary insomniaacuteMarch 2024 10:28amRecurrent major depressive disorder, in full remissionacuteMarch 2024 10:28amRhinitisnoneactiveMarch 2024 10:28am [facility] Work Phone: 1(546) 522-867112-31-2024 Evaluation note* Diagnosis Onset Date Resolution Status Admit Date Abdominal pain acuteDecember 2023 10:46amChange in bowel habitnoneactiveDecember 2023 10:46amElevated cholesterolacuteMarch 2024 10:28amEssential (primary) hypertensionacuteMarch 2024 10:28amGastroesophageal reflux 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acuteMarch 2024 10:28amLumbar spondylosis acuteMarch 2024 10:28amPrimary insomniaacuteMarch 2024 10:28am Recurrent major depressive disorder, in full remissionacuteMarch 2024 10:28am [facility] Work Phone: 1(771) 546-166311-01-2024 Evaluation note* Diagnosis Onset Date Resolution Status Admit Date Allergic contact dermatitis due to cloth ing acuteNov2023 8:51amChronic venous insufficiency of lower extremity acuteJuly 26, 2024 8:51amElevated cholesterolacuteNovember 2023 9:17amEssential (primary) hypertensionacuteNovember 2023 9:17am Gastroesophageal reflux 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acuteNov2023 9:17amLumbar spondylosisacuteNov2023 9:17amPrimary insomniaacuteAugust 07, 2024 9:17amRecurrent major depressive disorder, in full remissionacuteAugust 07, 2024 9:17am [facility] Work Phone: 1(644) 793-829805-28-2024 Hospital Discharge instructions Patient Education 02/20/2024 16:06:08 [...] include: ?8 oz (237 mL) of milk, wtjpzxu-pukwqzpctbpm-yssav milk, and calcium- fortifiedfruit juice. Calcium-fortified means [...] ?Spinach (cooked), rhubarb, beets, sweet potatoes, and Ivorian chard. ?Peanuts. ?Potato chips, slovenian fries, and baked potatoes with skin on. ?Nuts and nut products. ?Chocolate. If you regularly take a diuretic medicine, make sure to eat at least 1 or 2 servings of fruits or vegetables that are high in potassium each day. These include: ?Avocado. ?Banana. ?[place], prune, carrot, or tomato juice. ?Baked potato. [...] magnesium, fish oil, or vitamin B6. Take gbfy-shv-xcnqapp and prescription medicines only as told by [...] Casseroles. Pizza. Lasagna. Frozen meals. Potato chips. Bengali fries. The items listed above may not [...] provider. Document Revised: 12/22/2022 Document Reviewed: 12/22/2022 [employer] Patient Education 2022 Simplify. 02/20/2024 16:06:04 Kidney Stones, Ouwg-mb-Coup Kidney Stones Kidney stones are rock-like masses [...] Follow these instructions at home: Medicines Take roxt-zgz-iexvwov and prescription medicines only as told by [...] provider. Document Revised: 05/16/2022 Document Reviewed: 05/16/2022 [employer] Patient Education 2022 Simplify. [facility] Evaluation note* Encounter Date Diagnosis Assessment Notes Treatment Notes Treatment Clinical Notes Sep, COVID-19 (ICD-10 - U07.1) [employer] Other 01-15-2024 Evaluation note* Encounter Date Diagnosis [...] interruption. Instructed to avoid d/c meds abruptly [employer] Other 12-26-2023 Evaluation note* Encounter Date Diagnosis [...] needed - XR to r/o compression fx [employer] Other 12-26-2023 Evaluation note* Encounter Date Diagnosis [...] needed - XR to r/o compression fx [employer] Other 12-20-2023 Evaluation note* Encounter Date Diagnosis Assessment Notes Treatment Notes Treatment Clinical Notes Aug, Nontoxic single thyr oid nodule (ICD-10 - E04.1) Serial US w/ stable size and appearance. Referred to ENT w/ no further scans recommended. [employer] Other 10-25-2023 Evaluation note* Encounter Date Diagnosis [...] Amlodipine to 5mg qd while taking Paxlovid [employer] Other 07-17-2023 Evaluation note* Encounter Date Diagnosis [...] SBE and yearly mammogram - due in [facility] [employer] Other 05-03-2023 Evaluation note* Encounter Date Diagnosis [...] pneumonia Due for COVID booster and Shingrix [employer] Other 03-14-2023 Evaluation note* Encounter Date Diagnosis [...] or drinking prior to bedtime. Continue PPI [employer] Other 10-19-2022 Hospital Discharge instructions Patient Education 07/13/2022 13:30:11 Kidney Stones, Ygee-ae-Wdej Kidney Stones Kidney stones are rock-like masses [...] Follow these instructions at home: Medicines Take oftp-ubx-adwlcbx and prescription medicines only as told by [...] 02/27/2009 Document Revised: 01/28/2020 Document Reviewed: 01/28/2020 [employer] Patient Education 2020 Simplify. Follow Up Care 10/18/2021 12:21:40 With:SVITLANA IBARRA, NOE Anderson, URL Address: [facility] [address] [place] [address] [phone] When: Unknown [facility] 10-19-2022 Evaluation + Plan note Future Scheduled Tests Laboratory* Basic Metabolic Panel 07/13/22 [facility] evaluation + Plan note Future Appointments Appointment Date:02/24/2025 09:15:00 AM Scheduled Provider:Enrique VÁSQUEZ MD Location:[facility] Appointment Type:URO Office Visit [facility] evaluation + Plan note Future Appointments Appointment Date:02/24/2025 09:15:00 AM Scheduled Provider:Enrique VÁSQUEZ MD Location:[facility] Appointment Type:URO Office Visit Diagnostic Tests Pending * [facility] Future Appointments Appointment Date:03/02/2026 10:30:00 AM Scheduled Provider:Enrique VÁSQUEZ MD Location:[facility] Appointment Type:URO Office Visit [facility] evaluation noteNo [employer] Other Evaluation note* Diagnosis Onset Date Resolution Status Plantar fasciitis of right foot noneactiveRight foot painMercy Health St[facility] Work Phone: evaluation note* Diagnosis Onset Date Resolution Status Plantar fasciitis of right foot noneactiveRight foot painnoneactiveEssential (primary) hypertensionacute OsteoporosisacuteAvulsion fracture of metatarsal bone of right footMercy Health St. [facility] Work Phone: Evaluation note* Diagnosis Onset Date Resolution Status Plantar fasciitis of right foot noneactiveRight foot painnoneactiveOsteoporosisacuteAvulsion fracture of metatarsal bone of right footMercy Health St. [facility] Work Phone: evaluation note* Diagnosis Onset Date Resolution Status IBS (irritable bowel syndrome) acuteLow back painacuteElevated cholesterolacuteEssential (primary) hypertension acuteGastroesophageal reflux 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acute Lumbar spondylosisacuteOsteoporosisacutePrimary insomniaacuteRecurrent major depressive disorder, in full remissionacuteScreening mammogram for breast cancer noneactive [facility] Work Phone: evaluation note* Diagnosis Onset Date Resolution Status IBS (irritable bowel syndrome) acuteLow back painacuteElevated cholesterolacuteEssential (primary) hypertension acuteGastroesophageal reflux 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acute Lumbar spondylosisacutePrimary insomniaacuteRecurrent major depressive disorder, in full remissionacuteScreening mammogram for breast cancernoneactiveWellness examinationnonSelect [facility] Work Phone: Evaluation noteNo assessment information available [facility] Work Phone: evaluation note* Diagnosis Onset Date Resolution Status Admit Date Elevated cholesterol acuteJuly 2024 9:17amEssential (primary) hypertensionacuteJuly 2024 9:17amGastroesophageal reflux 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acute April 18, 2025 9:17amLumbar spondylosisacuteJuly 2024 9:17amPrimary insomniaacuteJuly 2024 9:17amRecurrent major depressive disorder, in full remissionacuteJuly 2024 9:17amScreening mammogram for breast cancer noneactiveJuly 2024 9:17amWellness examinationnoneactiveJuly 2024 9:17am [facility] Work Phone: History general [...] NephrolithiasisMedical HistoryAllergic conjunctivitis, bilateralSurgical History ESWL, KIDNEY, [id number] HistoryFINE NEEDLE ASPIRATION, NODULE, THYROID 2020Surgical [id number] HistoryTAH/[id number] HistorySEE SURGICAL HX [facility] [employer] Other History general Narrative - Rep[facility]NoDel[facility] [employer] Other Hospital course Narrative No data available for this section [facility] Hospital Discharge instructions No data available for this section [facility] No data available for this section [facility] reason for referral (narrative)* Reason Referral for treatme nt of chronic low back pain Diagnosis 1 Acute bilateral low back pain without sciatica (M54.50) Diagnosis 2 Lumbar spondylosis ( M47.816) Referral Organization [facility] Sancho rivas Referring Provider First Name Segun Referring Provider Last Name Sancho Referring Provider Specialty Internal Me dicvictor hugo Referred Organization [facility] Referred Address [address], [place],[address] Referred Provider Specialty Pain Medicin e Referral [...] for injections. Clinical Notes Include XR results [employer] Other Reason for referral (narrative)No reason for referral information availableRegional Medical Center Work Phone: Summary Purpose Family History Relationship [...] Date Segun Kingsley DO PCP - GeneralInternal Ammcmxwp26/7/23 REASON FOR VISIT (unrecogniz ed section and content) 3 month Follow upPossible Sp ider [id number] COVID +No Informationback painback painXR results6 monthCOVID + INFORMATION SOURCE (unrecogn ized section and content) DATE CREATED AUTHOR 01/27/2023 [facility] DATE CREATED AUTHOR AUTHOR'S ORGANIZ ATION 09/14/2023 [facility] EPIC DATE CREATED AUTHOR AUTHOR'S ORGANIZ ATION 05/07/2024 [facility] DATE CREATED AUTHOR AUTHOR'S ORGANIZ ATION 03/04/2025 [facility] DATE CREATED AUTHOR AUTHOR'S ORGANIZ ATION 03/05/2025 [facility] Goals (unrecognized section and content) [...] BE BASED ON THE PRIMARY CLINICAL RECORDS. [employer] provides no warranty or guarantee of the accuracy or completeness of information in this document.
--- NOTE | 2025-09-24 11:17 | PM.CN ---
Consult Note: HPI Data of Consult Patient: known to practice within the last 3 years Consult date: 09/24/25 Requesting Physician: Concetta Sharma NP Primary Care Provider: Segun Kingsley DO Consult Narrative Reason for consult: low back pain Narrative: Elda Lee a pleasant 70 year old female presents for evaluation and management of low back and posterior hip pain. pain today 2/10 dull. pt reporting significant relief post bilateral SIJ injection, overall 95% improvement per pt. sparingly utilizing tylenol and meloxicam. notes increasing right bicep and right upper extremity pain over the last few months after a flu shot, reports over the last few weeks her arm has felt achy. denies fall/injury. cc:: CC: Concetta Sharma NP Review of Systems ROS Musculoskeletal Reports: back pain and extremity pain PFSH PFSH Medical History Thyroid nodule ?E04.1 - Nontoxic single thyroid nodule (ICD-10) Low back pain ?M54.50 - Low back pain, unspecified (ICD-10) Osteoarthritis ?M19.90 - Unspecified osteoarthritis, unspecified site (ICD-10) Heartburn ?R12 - Heartburn (ICD-10) Kidney stones ?N20.0 - Calculus of kidney (ICD-10) Hypertension ?I10 - Essential (primary) hypertension (ICD-10) Surgical History H/O: hysterectomy ?Z90.710 - Acquired absence of both cervix and uterus (ICD-10) Meds Home Medications and Allergies Home Medications ?Medication ?Instructions ?Recorded ?Confirmed ?Type amlodipine 10 mg tablet 10 mg PO DAILY 10/04/23 08/25/25 History atorvastatin 40 mg tablet 40 mg PO DAILY 10/04/23 08/25/25 History baclofen 10 mg tablet 5 mg PO DAILY 10/04/23 08/25/25 History fluoxetine 40 mg capsule 40 mg PO DAILY 10/04/23 08/25/25 History hydrochlorothiazide 25 mg tablet 25 mg PO DAILY 10/04/23 08/25/25 History potassium chloride 20 mEq oral 50 meq PO DAILY 10/04/23 08/25/25 History packet ([employer]) temazepam 15 mg capsule 15 mg PO .QHS 10/04/23 08/25/25 History diazepam 10 mg tablet (Valium) 10 mg PO ONCE PRN sedation 24 10/26/23 08/25/25 Rx hours #1 tab meloxicam 7.5 mg tablet 7.5 mg PO BID 04/10/25 08/25/25 History Allergies Allergy/AdvReac Type Severity Reaction Status Date / Time No Known Drug Allergies Allergy Verified 08/25/25 08:34 Exam Constitutional Documenting provider has reviewed patient's vital signs: yes Common normals: no apparent distress, oriented x3 and alert General appearance: cooperative HENMT Common normals: normocephalic, hearing grossly normal bilaterally and moist oral mucous membranes Head and scalp: normocephalic Eye Common normals: PERRL Pupil: PERRL Neck & C-Spine Common normals: full ROM General: normal visual inspection Chest Common normals: inspection of chest normal Respiratory Common normals: normal respiratory effort, no retractions and no use of accessory muscles Back & Pelvis Lumbar spine/lower back: normal to inspection and lumbar ROM normal; ROM not limited, no pain with ROM and no lumbar spinal tenderness Sacroiliac joints: SI joints normal Extremity Other: right arm full ROM, strength 5/5 in BUE notable tenderness over right deltoid and bicep without edema swelling or redness Neuro Common normals: oriented x3 Sensorium/orientation: alert Psych Common normals: mental status grossly normal, thought process normal, cooperative, affect normal, speech normal and activity/motor behavior normal Speech: normal speech Thought process: normal thought process Results Additional Findings Additional findings: If on a controlled substance or opioids, I have checked an [place]AR[place] report on this patient and there are no aberrancies noted in the prescribing history.??If on a controlled substance or opioid a drug screen was completed and reviewed within the last year, and if there has not been a drug screen completed we ordered one today to monitor higher risk, state monitored pain medication use. As part of providing excellent, safe, comprehensive care, the following was completed at our patient's visit: 1. A medication reconciliation and review to ensure accurate knowledge of current/active medications, including asking our patients to inform us about any phap-its-gponpcx medications or herbal remedies/nutritional supplements/alternative remedies. 2. A review to specifically ensure our patients have had annual screening for screening for depression, screening for tobacco use, and screening for unhealthy alcohol use. For concerning screenings had a discussion with the patient, provided patient education, and recommended follow-up with primary care provider when appropriate. If patient noted with a risk of falling, they received education on strength, gait, and balance training to prevent future risk of falling. Portions of this note may have been carried over from the previous visit and updated as appropriate. Please note this office utilizes paper charting in addition to the electronic medical record. A list of current medications, vitals, and PMH is available there as the clinical staff outside of myself do not have access to [employer] charting during the clinic day operations. As part of providing quality comprehensive care the current medications, vitals, and PMH were reviewed in the paper chart. Assessment and Plan Assessment and Plan (1) Pain of right upper arm: (2) Sacroiliitis: Assessment and Plan: 08-25-25 bilateral SIJ injection >90% improvement ongoing Plan refer to PT for evaluation of right upper arm pain, with myofascial tenderness may benefit from stretching and strengthening. continue tylenol and mobic prn f/u 3 months, sooner if needed
== END 2025-09-24 10:31 | disposition home or self-care (01) ==
LOC: PM 10:31
PROVIDERS: PCP Internal Medicine; Visit Provider Nurse Practitioner
DX: M79.621 Pain in right upper arm (principal); M46.1 Sacroiliitis, not elsewhere classified
CPT/HCPCS: G0463